=== PATIENT | female | born 2005 | race Caucasian/White ===

== ENCOUNTER 2023-08-19 17:58 | Outpatient (OUT) | payer OTHER, SELFPAY ==
--- NOTE | 2023-08-19 | US_ITS ---
[address] [address] Patient Name: BERENICE LOPEZ MRN: [id number] date: 2005 Sex: F Assigned Patient Location: Current Patient Location: Accession/Order Number: [id number] Exam Date: 08/19/2023 00:00 Report Date: 08/20/2023 07:31 At the request of: HUE JANSEN Procedure: US pelvis w/ transvaginal EXAMINATION: US pelvis w/ transvaginal HISTORY: z87.42 hx ovarian cyst, pain ; left pelvic pain for 5 days COMPARISON: No relevant comparison available. TECHNIQUE: Transabdominal and/or transvaginal sonographic examination was performed as indicated by examination type. FINDINGS: UTERUS: Normal size and appearance. Uterus size: 7.4 x 3.1 x 4.8 cm ENDOMETRIUM: Normal homogeneous appearance. Endometrial thickness: 3.5 mm RIGHT OVARY: Normal size and appearance. Duplex Doppler demonstrates normal waveform and flow; resistive index 0.6. Ovary size: 5.4 x 1.7 x 3.1 cm LEFT OVARY: Contains a 5.9 cm hypoechoic structure with uniform internal echogenicity and no internal blood flow. Also contains a 3.6 cm benign-appearing cyst. Cm benign-appearing cyst Duplex Doppler demonstrates normal waveform and flow; resistive index 0.5. Ovary size: 6.3 x 6.6 x 6.1 cm CUL-DE-SAC: Small amount of free fluid, likely physiologic. BLADDER: Unremarkable. OTHER: None. US/US pelvis w/ transvaginal IMPRESSION: 1. Left ovary contains a large 5.9 cm complex/hemorrhagic cyst versus a vascular mass/dermoid. Follow-up ultrasound evaluation in 6 weeks to document regression is recommended. 2. Additionally seen within the left ovary is an anechoic benign-appearing 3.6 cm cyst. This could also be reevaluated on follow-up. 3. Unremarkable uterus and right ovary. Electronically authenticated by: JOY CARDOZA Date: 08/20/2023 07:31
== END 2023-08-19 17:59 | disposition home or self-care (01) ==
LOC: US 17:58
PROVIDERS: PCP Family Medicine; Visit Provider Obstetrics & Gynecology
DX: R10.2 Pelvic and perineal pain (principal); Z87.42 Personal history of other diseases of the female genital tract; N83.292 Other ovarian cyst, left side
CPT/HCPCS: 76830; 76856

== ENCOUNTER 2023-10-25 09:06 | Outpatient (OUT) | payer OTHER, SELFPAY ==
--- OUTSIDE RECORDS SUMMARY | 2023-10-25 09:11 | XMS_ITS | CCD ---
Author Name Unknown Address [address] [place] [address] Organization [facility] Care Team Providers Care Distributor Sales Manager Name Role Phone MD Joe Rosneberg Primary Care Provider [phone] MD Donta Stewart Attending Provider MD Severo Lea Emergency Provider INDERJIT ., DR SWANN Admitting Unavailable INDERJIT ., DR SWANN Attending Unavailable HOY ., DR DIAZ Primary Care Unavailable INDERJIT ., DR SWANN Admitting Unavailable INDERJIT ., DR SWANN Attending Unavailable HOY ., DR DIAZ Primary Care Unavailable INDERJIT ., DR SWANN Consulting Unavailable ANEL SILVERIO Consulting Unavailable MARKIE ARGUELLES Consulting Unavailable LISA GRANT Consulting Unavailable KARASIK ., DR FERNANDEZ Admitting Unavailabl e KARASIK ., DR FERNANDEZ Attending Unavailabl e HOY ., DR DIAZ Primary Care Unavailable KARASIK ., DR FERNANDEZ Consulting Unavailabl e INDERJIT ., DR SWANN Admitting Unavailable INDERJIT ., DR SWANN Attending Unavailable HOY ., DR DIAZ Primary Care Unavailable INDERJIT ., DR SWANN Consulting Unavailable INDERJIT ., DR SWANN Admitting Unavailable INDERJIT ., DR SWANN Attending Unavailable REQUEST, DR ZIMMERMAN LISTED Primary Care Unavaila ble INDERJIT ., DR SWANN Consulting Unavailable ZIEBER, DR JOY Coronel Consulting Unavailable INDERJIT ., DR SWANN Admitting Unavailable INDERJIT ., DR SWANN Attending Unavailable HOY ., DR DIAZ Primary Care Unavailable INDERJIT ., DR SWANN Consulting Unavailable HOY ., DR DIAZ Admitting Unavailable HOY ., DR DIAZ Attending Unavailable HOY ., DR JOE Primary Care Unavailable DR JOE WILSON Consulting Unavailable DR JOY CARDOZA Consulting Unavailable HUE FLORES Attending Unavailable HUE FLORES Attending Unavailable Medications Current Medications Medication Drug Class(es) Dates Sig (Normalized) Sig (Original) pantoprazole 20 mg delayed release oral tablet (1 source) Proton Pump Inhibitor Start: 02-07-2022 take 1 tablet by mouth once daily Pantoprazole (Protonix) 20 mg Tablet,Delayed Release (Dr/Ec) Active 20 MG PO Daily February 07, 2022 10:09pm promethazine hydrochloride 25 mg oral tablet (1 source) Phenothiazine Start: 02-07-2022 take 25 mg by mouth every six hours Promethazine Active 25 MG PO Q6H February 07, 2022 10:09pm Problems Active Problems Problem Classification Problem Date Documented Date Episodic/Chronic Abdominal pain (5 sources) Abdominal pain; Translations: [Unspecified abdominal pain] Onset: 11-12-2022 02-07-2022 Episodic Endometriosis (1 source) Endometriosis; Translations: [ENDOMETRIOSIS BILAT OVARY UNS DEPTH] Onset: 11-24-2022 Gastritis and duodenitis (1 source) Gastritis; Translations: [Gastritis, unspecified, without bleeding] 02-07-2022 Episodic Menstrual disorders (1 source) Irregular menstruation, unspecified; Translations: [IRREGULAR MENSTRUATION UNSPECIFIED] Onset: 11-05-2022 Chronic Other and unspecified benign neoplasm (4 sources) Benign neoplasm of left ovary; Translations: [BENIGN NEOPLASM OF LEFT OVARY] Onset: 10-19-2022 Episodic Other endocrine disorders (5 sources) Polycystic ovarian syndrome; Translations: [POLYCYSTIC OVARIAN SYNDROME] Onset: 10-15-2022 Chronic Other female genital disorders (1 source) Noninflammatory disorder of ovary, fallopian tube and broad ligament, unspecified; Translations: [OTH NONINFL D/O OVARY TUBE AND BRD LIG] Onset: 10-19-2022 Episodic Past or Other Problems Problem Classification Problem Date Documented Da te Episodic/Chronic Other screening for suspected conditions (not mental disorders or infectious disease) (4 sources) Encounter for screening for malignant neoplasm of cervix; Translations: [ENC SCREENING MALIG NEOPLASM CERV] Onset: 05-04-2022 Episodic Results Test Name Value Interpretation Reference Range Facility XR LSPINE MIN 4 VIEWSon 12-19 XR LSPINE MIN 4 VIEWS EXAMINATION: XR LS PINE MIN 4 VIEWS HISTORY: Pain in thoracic spine ; chronic low back pain COMPARISON: No relevant comparison available. FINDINGS: BONES: Mild left convex curvature of the lumbar spine. No fracture, spondylolisthesis, or significant facet arthropathy. DISC SPACES: Slight narrowing L5-S1. PARASPINOUS: Negative. No paraspinous abnormality is seen. OTHER: Negative. IMPRESSION: 1. L5-S1 mild disc space narrowing; possible early degenerative changes. 2. Mild levocurvature lumbar spine; positioning versus muscle spasm. Electronically authenticated by: JOY CARDOZA Date: 2023-01-10 11:59 Normal [facility] CBC AUTO DIFFon 11-12-2022 BASO # 0.0 103/ul Normal 0.0-0.1 [facility] Comment on above: Performed By: #### C BC #### [facility] [address] [address] [address] Hilda Harden Basophils/100 WBC (Bld) 0.3 % Normal 0.2-2.0 [facility] Comment on above: Performed By: #### C BC #### [facility] [address] [address] [address] Hilda Harden EO # 0.1 103/ul Normal 0.0-0.7 [facility] Comment on above: Performed By: #### C BC #### [facility] [address] [address] [address] Hilda Harden Eosinophils/100 WBC (Bld) 1.3 % Normal 0.9-7.0 [facility] Comment on above: Performed By: #### C BC #### [facility] [address] [address] [address] Hilda Harden Erythrocyte distribution width (RBC) [Ratio] 13.3 % Normal 11.0-15.0 [facility] Comment on above: Performed By: #### C BC #### [facility] [address] [place] [address] Dr. Hilda Harden Hematocrit (Bld) [Volume fraction] 40.9 % Normal 36.0-48.0 [facility] Comment on above: Performed By: #### C BC #### [facility] [address] [place] [address] Dr. Hilda Harden Hemoglobin (Bld) [Mass/Vol] 13.9 g/dL Normal 12.0-16.0 [facility] Comment on above: Performed By: #### C BC #### [facility] [address] [place] [address] Dr. Hilda Harden IG # 0.02 10e3/ul Normal 0.00-0.03 [facility] Comment on above: Performed By: #### C BC #### [facility] [address] [place] [address] Dr. Hilda Harden IG % 0.3 % Normal 0.0-0.5 [facility] Comment on above: Performed By: #### C BC #### [facility] [address] [place] [address] Dr. Hilda Harden LYMPH # 2.5 103/ul Normal 1.2-3.8 [facility] Comment on above: Performed By: #### C BC #### [facility] [address] [place] [address] Dr. Hilda Harden Lymphocytes/100 WBC (Bld) 41.4 % Normal 20.5-60.0 [facility] Comment on above: Performed By: #### C BC #### [facility] [address] [place] [address] Dr. Hilda Harden MANUAL DIFF REQ NO Normal [facility] Comment on above: Performed By: #### C BC #### [facility] [address] [place] [address] Dr. Hilda Harden MCH (RBC) [Entitic mass] 28.8 pg Normal 26.7-34.0 [facility] Comment on above: Performed By: #### C BC #### [facility] [address] [place] [address] Dr. Hilda Harden MCHC (RBC) [Mass/Vol] 34.0 g/dL Normal 29.9-35.2 [facility] Comment on above: Performed By: #### C BC #### [facility] [address] [address] [address] Hilda Harden MCV (RBC) [Entitic vol] 84.9 fL Normal 81.0-99.0 [facility] Comment on above: Performed By: #### C BC #### [facility] [address] [place] [address] Dr. Hilda Harden MONO # 0.4 103/ul Normal 0.3-0.8 [facility] Comment on above: Performed By: #### C BC #### [facility] [address] [place] [address] Dr. Hilda Harden Monocytes/100 WBC (Bld) 6.9 % Normal 1.7-12.0 [facility] Comment on above: Performed By: #### C BC #### [facility] [address] [place] [address] Dr. Hilda Harden NEUT # 3.0 103/ul Normal 1.4-6.5 [facility] Comment on above: Performed By: #### C BC #### [facility] [address] [place] [address] Dr. Hilda Harden Neutrophils/100 WBC (Bld) 49.8 % Normal 43.0-75.0 [facility] Comment on above: Performed By: #### C BC #### [facility] [address] [place] [address] Dr. Hilda Harden Platelet mean volume (Bld) [Entitic vol] 9.6 fL Normal 9.5-13.5 [facility] Comment on above: Performed By: #### C BC #### [facility] [address] [place] [address] Dr. Hilda Harden PLT 279 103/ul Normal 150-450 [facility] Comment on above: Performed By: #### C BC #### [facility] [address] [place] [address] Dr. Hilda Harden RBC 4.82 106/ul Normal 4.20-5.40 [facility] Comment on above: Performed By: #### C BC #### [facility] [address] [place] [address] Dr. Hilda Harden WBC 6.1 103/ul Normal 4.0-11.0 [facility] Comment on above: Performed By: #### C BC #### [facility] [address] [place] [address] Dr. Hilda Harden PREG QUANT HCGon 11-12-2022 HCG QUANT <1 Normal [facility] Comment on above: Performed By: #### C T/NGNA #### [facility] [address] [place] [address] Dr. Hilda Harden HCG RANGE SEE BELOW Normal [facility] Comment on above: Result Comment: 5-50 0.2-1 WEEK 50-500 1-2 WEEKS 100-5,000 2-3 WEEKS 500-10,000 3-4 WEEKS 1,000-50,000 4-5 WEEKS 10,000-100,000 5-6 WEEKS 15,000-200,000 6-8 WEEKS 10,000-100,000 2-3 MONTHS Performed By: #### C T/NGNA #### [facility] [address] [place] [address] Dr. Hilda Harden AFP (TUMOR MARKER)on 023 AFP, Serum, Tumor Marker 4.9 ng/mL Critically high 0.0-4. 7 [facility] Comment on above: Result Comment: [email or web address] Electrochemiluminescence Immunoassay (ECLIA) . Values obtained with different assay methods or kits cannot be used interchangeably. Results cannot be interpreted as absolute evidence of the presence or absence of malignant disease. . This test is not interpretable in females. Performed By: #### A FP. #### [facility] [address] [place] [address] Dr. Hilda Harden CA 125on 10-20-2022 Cancer Antigen (CA) 125 34.1 U/mL Normal 0.0-38.1 [facility] Comment on above: Result Comment: [email or web address] Electrochemiluminescence Immunoassay (ECLIA) . Values obtained with different assay methods or kits cannot be used interchangeably. Results cannot be interpreted as absolute evidence of the presence or absence of malignant disease. Performed By: #### C A 125 #### [facility] [address] [place] [address] Dr. Hilda Harden CEAon 10-20-2022 CEA 1.3 ng/mL Normal 0.0-4.7 [facility] Comment on above: Result Comment: Nons mokers <3.9 Smokers <5.6 . [employer] Electrochemiluminescence Immunoassay (ECLIA) . Values obtained with different assay methods or kits cannot be used interchangeably. Results cannot be interpreted as absolute evidence of the presence or absence of malignant disease. Performed By: #### C T/NGNA #### [facility] [address] [place] [address] Dr. Hilda Harden HCG QUANT TUMOR MARKERon HCG QNT TUMOR MARKER <1 Normal [facility] Comment on above: Result Comment: Fema le (Non-) 0 - 5 (Postmenopausal) 0 - 8 . [employer] Electrochemiluminescence Immunoassay (ECLIA) . The [employer] HCG + beta assay recognizes the holo-hormone, human chorionic gonadotropin (hCG), nicked forms of hCG, the beta-core fragment and the free beta-subunit in human serum and plasma. . Results obtained with different test methods or kits cannot used interchangeably. This assay is intended for the early detection of . The result should not be used for treatment or for diagnostic purposes without confirmation of the diagnosis by another medically established diagnostic product or procedure. . This test was developed and its performance characteristics determined by [employer] It has not been cleared or approved by the Food and Drug Administration for use as a tumor marker. . This test is not interpretable as a tumor marker in females. Performed By: #### H CGTMOR #### [facility] [address] [place] [address] Dr. Hilda Harden LDHon 10-19-2022 LDH 140 U/L Normal 81-234 [facility] Comment on above: Performed By: #### L DH #### [facility] [address] [place] [address] Dr. Hilda Harden US PELVIS AND TRANSVAGon US PELVIS AND TRANSVAG EXAMINATION: US P MERCY AND TRANSVAG HISTORY: Polycystic ovary syndrome , infertility COMPARISON: No relevant comparison available. TECHNIQUE: Transabdominal and transvaginal sonographic examination. FINDINGS: UTERUS: Normal size and appearance. Uterus size: 8.5 x 4.9 x 3.5 cm ENDOMETRIUM: Normal homogeneous appearance. Endometrial thickness: 7 mm RIGHT OVARY: Normal size and appearance. Duplex Doppler demonstrates normal waveform and flow; resistive index 0.5. Ovary size: 4.9 x 3.7 x 2.0 cm LEFT OVARY: Contains a 6.1 x 5.9 x 5.1 cm homogeneous mass with a coarse prominent calcification; likely dermoid. Left ovary also contains a 3.9 cm benign-appearing cyst. Duplex Doppler demonstrates normal waveform and flow; resistive index 0.6. Ovary size: 4.8 x 4.8 x 3.9 cm CUL-DE-SAC: Unremarkable. No significant free fluid. BLADDER: Unremarkable. OTHER: None. IMPRESSION: 1. Nonspecific mass/lesion within left ovary with what appears to be a dense calcification; suspicious for dermoid. Follow-up in 6 weeks is recommended to evaluate for stability versus regression as this could represent a very complex hemorrhagic cyst. 2. Large benign-appearing cyst within left ovary. 3. Typical appearance of polycystic ovarian syndrome it is not present. Electronically authenticated by: JOY CARDOZA Date: 2022-10-15 13:53 Normal [facility] DHEA SERUMon 10-10-2022 Dehydroepiandrosterone (DHEA) 640 ng/dL Critically high 40-491 [facility] Comment on above: Result Comment: Age 1 - 5 years 0 - 67 6 - 7 years 0 - 110 8 - 10 years 0 - 185 11 - 12 years 0 - 201 13 - 14 years 0 - 318 15 - 16 years 39 - 481 17 - 19 years 40 - 491 >19 years 31 - 701 Performed By: #### D HEA. #### [facility] [address] [place], [place] [address] Dr. Hilda Harden DHEA-SULFATEon 10-07-2022 DHEA-Sulfate 201.0 ug/dL Normal 110.0-433. 2 [facility] Comment on above: Performed By: #### C T/NGNA #### [facility] [address] [place], [place] [address] Dr. Hilda Harden FSHon 10-07-2022 FSH 4.1 mIU/mL Normal [facility] Comment on above: Result Comment: Adul t Female: Follicular phase 3.5 - 12.5 Ovulation phase 4.7 - 21.5 Luteal phase 1.7 - 7.7 Postmenopausal 25.8 - 134.8 Performed By: #### C T/NGNA #### [facility] [address] [place] [address] Dr. Hilda Harden LUTEINIZING HORMONE (LH)on 0 10-07-2022 LH 7.9 mIU/mL Normal [facility] Comment on above: Result Comment: Adul t Female: Follicular phase 2.4 - 12.6 Ovulation phase 14.0 - 95.6 Luteal phase 1.0 - 11.4 Postmenopausal 7.7 - 58.5 Performed By: #### C BC #### [facility] [address] [place] [address] Dr. Hilda Harden CBC AUTO DIFFon 10-06-2022 BASO # 0.0 103/ul Normal 0.0-0.1 [facility] Comment on above: Performed By: #### C BC #### [facility] [address] [place] [address] Dr. Hilda Harden Basophils/100 WBC (Bld) 0.3 % Normal 0.2-2.0 [facility] Comment on above: Performed By: #### C BC #### [facility] [address] [place] [address] Dr. Hilda Harden EO # 0.1 103/ul Normal 0.0-0.7 [facility] Comment on above: Performed By: #### C BC #### [facility] [address] [place] [address] Dr. Hilda Harden Eosinophils/100 WBC (Bld) 1.8 % Normal 0.9-7.0 [facility] Comment on above: Performed By: #### C BC #### [facility] [address] [place] [address] Dr. Hilda Harden Erythrocyte distribution width (RBC) [Ratio] 13.3 % Normal 11.0-15.0 [facility] Comment on above: Performed By: #### C BC #### [facility] [address] [place] [address] Dr. Hilda Harden Hematocrit (Bld) [Volume fraction] 39.9 % Normal 36.0-48.0 [facility] Comment on above: Performed By: #### C BC #### [facility] [address] [place] [address] Dr. Hilda Harden Hemoglobin (Bld) [Mass/Vol] 13.1 g/dL Normal 12.0-16.0 [facility] Comment on above: Performed By: #### C BC #### [facility] [address] [place] [address] Dr. Hilda Harden IG # 0.02 10e3/ul Normal 0.00-0.03 [facility] Comment on above: Performed By: #### C BC #### [facility] [address] [place] [address] Dr. Hilda Harden IG % 0.3 % Normal 0.0-0.5 [facility] Comment on above: Performed By: #### C BC #### [facility] [address] [place] [address] Dr. Hilda Harden LYMPH # 2.1 103/ul Normal 1.2-3.8 [facility] Comment on above: Performed By: #### C BC #### [facility] [address] [place] [address] Dr. Hilda Harden Lymphocytes/100 WBC (Bld) 31.8 % Normal 20.5-60.0 [facility] Comment on above: Performed By: #### C BC #### [facility] [address] [place] [address] Dr. Hilda Harden MANUAL DIFF REQ NO Normal [facility] Comment on above: Performed By: #### C BC #### [facility] [address] [place] [address] Dr. Hilda Harden MCH (RBC) [Entitic mass] 27.8 pg Normal 26.7-34.0 [facility] Comment on above: Performed By: #### C BC #### [facility] [address] [place] [address] Dr. Hilda Harden MCHC (RBC) [Mass/Vol] 32.8 g/dL Normal 29.9-35.2 [facility] Comment on above: Performed By: #### C BC #### [facility] [address] [place] [address] Dr. Hilda Harden MCV (RBC) [Entitic vol] 84.5 fL Normal 81.0-99.0 [facility] Comment on above: Performed By: #### C BC #### [facility] [address] [place] [address] Dr. Hilda Harden MONO # 0.5 103/ul Normal 0.3-0.8 [facility] Comment on above: Performed By: #### C BC #### [facility] [address] [place] [address] Dr. Hilda Harden Monocytes/100 WBC (Bld) 7.8 % Normal 1.7-12.0 [facility] Comment on above: Performed By: #### C BC #### [facility] [address] [place] [address] Dr. Hilda Harden NEUT # 3.8 103/ul Normal 1.4-6.5 [facility] Comment on above: Performed By: #### C BC #### [facility] [address] [place] [address] Dr. Hilda Harden Neutrophils/100 WBC (Bld) 58.0 % Normal 43.0-75.0 [facility] Comment on above: Performed By: #### C BC #### [facility] [address] [place] [address] Dr. Hilda Harden Platelet mean volume (Bld) [Entitic vol] 9.7 fL Normal 9.5-13.5 [facility] Comment on above: Performed By: #### C BC #### [facility] [address] [place] [address] Dr. Hilda Harden PLT 266 103/ul Normal 150-450 [facility] Comment on above: Performed By: #### C BC #### [facility] [address] [place] [address] Dr. Hilda Harden RBC 4.72 106/ul Normal 4.20-5.40 [facility] Comment on above: Performed By: #### C BC #### [facility] [address] [place] [address] Dr. Hilda Harden WBC 6.6 103/ul Normal 4.0-11.0 [facility] Comment on above: Performed By: #### C BC #### [facility] [address] [place] [address] Dr. Hilda Harden FREE T4on 10-06-2022 Free T4 [Mass/Vol] 1.09 ng/dL Normal 0.78-1.34 [facility] Comment on above: Performed By: #### C T/NGNA #### [facility] [address] [place] [address] Dr. Hilda Harden GLYCOHEMOGLOBIN A1Con 2022 ADA RECOMMENDATION SEE BELOW Normal [facility] Comment on above: Result Comment: ADA RECOMMENDED LIMIT 4.0 - 6.0 ADA THERAPEUTIC TARGET < 7.0 ACTION SUGGESTED > 7.0 Performed By: #### A 1C #### [facility] [address] [place] [address] Dr. Hilda Harden Glucose [Mass/Vol] 100 mg/dL Normal [facility] Comment on above: Performed By: #### A 1C #### [facility] [address] [place] [address] Dr. Hilda Harden HbA1c (Bld) [Mass fraction] 5.1 % Normal 4.5-6.2 [facility] Comment on above: Performed By: #### A 1C #### [facility] [address] [place] [address] Dr. Hilda Harden TSHon 10-06-2022 TSH 1.199 uIU/mL Normal 0.516-4.13 0 [facility] Comment on above: Performed By: #### T SH #### [facility] [address] [place] [address] Dr. Hilda Harden CHLAMYDIA/GONOCOCCUS RON (SW AB/URINE/PAPon 05-07-2022 Chlamydia trachomatis, RON Negative Normal Negative [facility] Comment on above: Performed By: #### C T/NGNA #### [facility] [address] [address] [address] Hilda Harden Neisseria gonorrhoeae, RON Negative Normal Negative [facility] Comment on above: Performed By: #### C T/NGNA #### [facility] [address] [address] [address] Hilda Harden VAGINITIS/VAGINOSIS DNA PROB Harinder 05-06-2022 Shannen species Negative Normal Negative [facility] Comment on above: Performed By: #### C BC #### [facility] [address] [address] [address] Hilda Harden Gardnerella vaginalis Positive Abnormal Negative [facility] Comment on above: Performed By: #### C BC #### [facility] [address] [address] [address] Hilda Harden Trichomonas vaginalis Negative Normal Negative [facility] Comment on above: Performed By: #### C BC #### [facility] [address] [address] [address] Hilda Harden Amylaseon 02-07-2022 Amylase [Catalytic activity/Vol] 70 U/L Normal 28-100 [facility] Comment on above: Performed By: #### A MY, CBC, LIPASE, CMP #### [address] Basophils Auto (Bld) [#/Vol] Ordered By: Severo Lea on 02-07-2022 Basophils (Bld) [#/Vol] 0.0 10*3/uL 0.0-0.1 [facility] Basophils/100 WBC Auto (Bld) Ordered By: Severo Lea on 02-07-2022 Basophils/100 WBC (Bld) 0.6 % F [facility] Bilirubin Test strip Ql (U)O rdered By: Severo Lea on 02-07-2022 Bilirubin Ql (U) Negative Negative [facility] Blood hemoglobin measurement (mass/volume)Ordered By: Severo Lea on 02-07-2022 Hemoglobin (Bld) [Mass/Vol] 13.8 g/dL 12.0-16.0 [facility] Blood leukocytes automated c ount (number/volume)Ordered By: Severo Lea on 02-07-2022 WBC (Bld) [#/Vol] 8.5 10*3/uL 4.5-13.5 [facility] Body fluid albumin measureme nt (mass/volume)Ordered By: Severo Lea on 02-07-2022 Albumin (Body fld) [Mass/Vol] 4.2 g/dL 3.2-5.5 [facility] Color Auto (U)Ordered By: Maren Lea on 02-07-2022 Color (U) Yellow Yellow [facility] Complete Blood Count Auto Di ffon 02-07-2022 Basophils (Bld) [#/Vol] 0.0 10*3/uL Normal 0.0-0.1 [facility] Comment on above: Result Comment: PERF ORMED BY: [place] [address] PATHOLOGIST SET UP [employer] BORIS ELIZABETH M.D. Performed By: #### A MY, CBC, LIPASE, CMP #### [address] Basophils/100 WBC (Bld) 0.6 % Normal . F [facility] Comment on above: Performed By: #### A MY, CBC, LIPASE, CMP #### [address] Eosinophils (Bld) [#/Vol] 0.1 10*3/uL Normal 0.0-0.7 [facility] Comment on above: Performed By: #### A MY, CBC, LIPASE, CMP #### [place] [address] [place] Eosinophils/100 WBC (Bld) 0.7 % Normal . [facility] Comment on above: Performed By: #### A MY, CBC, LIPASE, CMP #### [address] Erythrocyte distribution width (RBC) [Ratio] 14.2 % Normal 11.9-15.3 [facility] Comment on above: Performed By: #### A MY, CBC, LIPASE, CMP #### [address] Hematocrit (Bld) [Volume fraction] 41.5 % Normal 36.0-46.0 [facility] Comment on above: Performed By: #### A MY, CBC, LIPASE, CMP #### [address] Hemoglobin (Bld) [Mass/Vol] 13.8 g/dL Normal 12.0-16.0 [facility] Comment on above: Performed By: #### A MY, CBC, LIPASE, CMP #### [address] Lymphocytes (Bld) [#/Vol] 2.0 10*3/uL Normal 1.20-4.8 [facility] Comment on above: Performed By: #### A MY, CBC, LIPASE, CMP #### [address] Lymphocytes/100 WBC (Bld) 23.8 % Normal . [facility] Comment on above: Performed By: #### A MY, CBC, LIPASE, CMP #### [address] MCH (RBC) [Entitic mass] 28.6 pg Normal 25.0-35.0 [facility] Comment on above: Performed By: #### A MY, CBC, LIPASE, CMP #### [address] MCV (RBC) [Entitic vol] 85.8 fL Normal 78-102 [facility] Comment on above: Performed By: #### A MY, CBC, LIPASE, CMP #### [address] Mean Corpuscular HGB Conc 33.3 g/dL Normal 31.0-37.0 [facility] Comment on above: Performed By: #### A MY, CBC, LIPASE, CMP #### [address] Monocytes (Bld) [#/Vol] 0.6 10*3/uL Normal 0.1-1.00 [facility] Comment on above: Performed By: #### A MY, CBC, LIPASE, CMP #### [address] Monocytes/100 WBC (Bld) 7.6 % Normal . [facility] Comment on above: Performed By: #### A MY, CBC, LIPASE, CMP #### [address] Neutrophils (Bld) [#/Vol] 5.7 10*3/uL Normal 1.2-7.7 [facility] Comment on above: Performed By: #### A MY, CBC, LIPASE, CMP #### [address] Neutrophils/100 WBC (Bld) 67.3 % Normal . [facility] Comment on above: Performed By: #### A MY, CBC, LIPASE, CMP #### [address] Nucleated RBC/100 WBC (Bld) [Ratio] 0.0 % Normal 0-0.5 [facility] Comment on above: Performed By: #### A MY, CBC, LIPASE, CMP #### [address] Platelet mean volume (Bld) [Entitic vol] 8.6 fL Normal 6.3-10.7 [facility] Comment on above: Performed By: #### A MY, CBC, LIPASE, CMP #### [place] [address] [place] Platelets (Bld) [#/Vol] 304 10*3/uL Normal 150-450 [facility] Comment on above: Performed By: #### A MY, CBC, LIPASE, CMP #### [place] [address] [place] RBC (Bld) [#/Vol] 4.84 10*6/uL Normal 4.10-5.10 [facility] Comment on above: Performed By: #### A MY, CBC, LIPASE, CMP #### [address] [address] [place] WBC (Bld) [#/Vol] 8.5 10*3/uL Normal 4.5-13.5 [facility] Comment on above: Performed By: #### A MY, CBC, LIPASE, CMP #### [facility] [address] [place] [address] Comprehensive Metabolic Pane emigdio 02-07-2022 Albumin [Mass/Vol] 4.2 g/dL Normal 3.2-5.5 [facility] Comment on above: Performed By: #### A MY, CBC, LIPASE, CMP #### [address] Albumin/Globulin [Mass ratio] 1.8 {ratio} Normal [facility] Comment on above: Performed By: #### A MY, CBC, LIPASE, CMP #### [address] ALP [Catalytic activity/Vol] 46 U/L Normal 32-92 [facility] Comment on above: Performed By: #### A MY, CBC, LIPASE, CMP #### [address] ALT [Catalytic activity/Vol] 14 U/L Normal 10-60 [facility] Comment on above: Performed By: #### A MY, CBC, LIPASE, CMP #### [address] AST [Catalytic activity/Vol] 15 U/L Normal 10-42 [facility] Comment on above: Performed By: #### A MY, CBC, LIPASE, CMP #### [address] Bilirubin [Mass/Vol] 0.5 mg/dL Normal 0.3-1.2 [facility] Comment on above: Performed By: #### A MY, CBC, LIPASE, CMP #### [facility] [address] [place] [address] Calcium [Mass/Vol] 9.3 mg/dL Normal 8.2-10.2 [facility] Comment on above: Performed By: #### A MY, CBC, LIPASE, CMP #### [facility] [address] Chloride [Moles/Vol] 107 mmol/L Normal 95-114 [facility] Comment on above: Performed By: #### A MY, CBC, LIPASE, CMP #### [facility] [address] CO2 [Moles/Vol] 25.1 mmol/L Normal 22.0-30.0 [facility] Comment on above: Performed By: #### A MY, CBC, LIPASE, CMP #### [facility] [address] Creatinine [Mass/Vol] 0.82 mg/dL Normal 0.44-1.03 [facility] Comment on above: Performed By: #### A MY, CBC, LIPASE, CMP #### [facility] [address] Creatinine Clr Calc Pharmacy 100.48 [facility] Comment on above: Performed By: #### A MY, CBC, LIPASE, CMP #### [address] Estimated GFR ( Mari > 60 [facility] Comment on above: Result Comment: GFR estimated reference range: According to KDOQI guidelines, <60 ml/min/1.73m2 is sufficient to diagnose a patient with chronic kidney disease. Performed By: #### A MY, CBC, LIPASE, CMP #### [facility] [address] Estimated GFR (Non- Am > 60 [facility] Comment on above: Performed By: #### A MY, CBC, LIPASE, CMP #### [facility] [address] Globulin (S) [Mass/Vol] 2.4 g/dL Normal [facility] Comment on above: Performed By: #### A MY, CBC, LIPASE, CMP #### [facility] [address] Glucose [Mass/Vol] 94 mg/dL Normal 70-100 [facility] Comment on above: Result Comment: [place] Glucose Reference Range is dependent on time and content of last meal. Glucose of more than 200 mg/dL in a nonstressed, ambulatory subject supports the diagnosis of Diabetes Mellitus. ADA recommended reference range Performed By: #### A MY, CBC, LIPASE, CMP #### [facility] [address] Potassium [Moles/Vol] 4.2 mmol/L Normal 3.5-5.1 [facility] Comment on above: Performed By: #### A MY, CBC, LIPASE, CMP #### [facility] [address] Protein [Mass/Vol] 6.6 g/dL Normal 6.1-7.9 [facility] Comment on above: Performed By: #### A MY, CBC, LIPASE, CMP #### [facility] [address] [place] [address] [place] Sodium [Moles/Vol] 140 mmol/L Normal 136-146 [facility] Comment on above: Performed By: #### A MY, CBC, LIPASE, CMP #### [facility] [address] [place] [address] [place] Urea nitrogen [Mass/Vol] 11 mg/dL Normal 9-23 [facility] Comment on above: Performed By: #### A MY, CBC, LIPASE, CMP #### [facility] [address] [place] [address] [place] Creatinine and Glomerular fi ltration rate.predicted panel (S/P/Bld)Ordered By: Severo Lea on 02-07-2022 Creatinine [Mass/Vol] 0.82 mg/dL 0.44-1.03 [facility] Eosinophils Auto (Bld) [#/Vo l]Ordered By: Severo Lea on 02-07-2022 Eosinophils (Bld) [#/Vol] 0.1 10*3/uL 0.0-0.7 [facility] Eosinophils/100 WBC Auto (Bl d)Ordered By: Severo Lea on 02-07-2022 Eosinophils/100 WBC (Bld) 0.7 % [facility] Erythrocyte distribution wid th Auto (RBC) [Ratio]Ordered By: Severo Lea on 02-07-2022 Erythrocyte distribution width (RBC) [Ratio] 14.2 % 11.9-15.3 [facility] Estimated glomerular filtrat ion rate (GFR) non- AmericanOrdered By: Severo Lea on 02-07-2022 GFR/1.73 sq M.predicted among non-blacks MDRD (S/P/Bld) [Vol rate/Area] > 60 mL/Min [facility] Globulin Calc (S) [Mass/Vol] Ordered By: Severo Lea on 02-07-2022 Globulin (S) [Mass/Vol] 2.4 g/dL F [facility] HCG ( test) IA.rapi d Ql (U)Ordered By: Severo Lea on 02-07-2022 HCG ( test) Ql (U) Negative [facility] HCG,Urineon 02-07-2022 Beta HCG ( test) Ql (U) Negative Normal [facility] Comment on above: Order Comment: Name Collection Type:: Clean-Voided Midstream Result Comment: PERF ORMED BY: [place] [address] PATHOLOGIST SET UP [employer] BORIS ELIZABETH M.D. Performed By: #### [facility], [facility] #### [address] Hematocrit Auto (Bld) [Volum e fraction]Ordered By: Severo Lea on 02-07-2022 Hematocrit (Bld) [Volume fraction] 41.5 % 36.0-46.0 [facility] Ketones Auto test strip (U) [Mass/Vol]Ordered By: Severo Lea on 02-07-2022 Ketones (U) [Mass/Vol] Trace Negative Fi [facility] - Chemistry and C hemistry - challengeOrdered By: Severo Lea on 02-07-2022 Lipase [Catalytic activity/Vol] 53.0 U/L [facility] - Hematology and Cell countsOrdered By: Severo Lea on 02-07-2022 Nucleated RBC/100 WBC (Bld) [Ratio] 0.0 % 0-0.5 [facility] Lipaseon 02-07-2022 Lipase [Catalytic activity/Vol] 53.0 U/L High 22-51 [facility] Comment on above: Result Comment: PERF ORMED BY: [facility] [address] [place] [address] PATHOLOGIST SET UP [employer] BORIS ELIZABETH M.D. Performed By: #### A MY, CBC, LIPASE, CMP #### [facility] [address] Lymphocytes Auto (Bld) [#/Vo l]Ordered By: Severo Lea on 02-07-2022 Lymphocytes (Bld) [#/Vol] 2.0 10*3/uL 1.20-4.8 [facility] Lymphocytes/100 WBC Auto (Bl d)Ordered By: Severo Lea on 02-07-2022 Lymphocytes/100 WBC (Bld) 23.8 % [facility] MCH Auto (RBC) [Entitic mass ]Ordered By: Severo Lea on 02-07-2022 MCH (RBC) [Entitic mass] 28.6 pg 25.0-35.0 [facility] MCHC Auto (RBC) [Mass/Vol]Or dered By: Severo Lea on 02-07-2022 MCHC (RBC) [Mass/Vol] 33.3 g/dL 31.0-37.0 [facility] MCV Auto (RBC) [Entitic vol] Ordered By: Severo Lea on 02-07-2022 MCV (RBC) [Entitic vol] 85.8 fL 78-102 [facility] Monocytes Auto (Bld) [#/Vol] Ordered By: Severo Lea on 02-07-2022 Monocytes (Bld) [#/Vol] 0.6 10*3/uL 0.1-1.00 [facility] Monocytes/100 WBC Auto (Bld) Ordered By: Severo Lea on 02-07-2022 Monocytes/100 WBC (Bld) 7.6 % F [facility] Neutrophils Auto (Bld) [#/Vo l]Ordered By: Severo Lea on 02-07-2022 Neutrophils (Bld) [#/Vol] 5.7 10*3/uL 1.2-7.7 [facility] Neutrophils/100 WBC Auto (Bl d)Ordered By: Severo Lea on 02-07-2022 Neutrophils/100 WBC (Bld) 67.3 % [facility] Nitrite Test strip Ql (U)Ord ered By: Severo Lea on 02-07-2022 Nitrite Ql (U) Negative Negative [facility] No Panel InformationOrdered By: Severo Lea on 02-07-2022 Estimated GFR () > 60 mL/Min [facility] Comment on above: GFR estimated refere nce range: According to KDOQI guidelines, <60 ml/min/1.73m2 is sufficient to diagnose a patient with chronic kidney disease. Pharmacy Creatinine Clearance (Chem 100.48 [facility] Platelet mean volume Auto (B ld) [Entitic vol]Ordered By: Severo Lea on 02-07-2022 Platelet mean volume (Bld) [Entitic vol] 8.6 fL 6.3-10.7 [facility] Platelets Auto (Bld) [#/Vol] Ordered By: Severo Lea on 02-07-2022 Platelets (Bld) [#/Vol] 304 10*3/uL 150-450 [facility] Protein Auto test strip (U) [Mass/Vol]Ordered By: Severo Lea on 02-07-2022 Protein (U) [Mass/Vol] Negative Negative [facility] Protein [Mass/volume] in Ser um or PlasmaOrdered By: Severo Lea on 02-07-2022 Protein [Mass/Vol] 6.6 g/dL 6.1-7.9 [facility] RBC Auto (Bld) [#/Vol]Ordere d By: Severo Lea on 02-07-2022 RBC (Bld) [#/Vol] 4.84 10*6/uL 4.10-5.10 [facility] Serum or plasma alanine guerra otransferase measurement without P-5'-P (enzymatic activiOrdered By: Severo Lea on 02-07-2022 ALT No additional P-5'-P [Catalytic activity/Vol] 14 U/L 10-60 [facility] Serum or plasma albumin/glob ulin mass ratioOrdered By: Severo Lea on 02-07-2022 Albumin/Globulin [Mass ratio] 1.8 {ratio} [facility] Serum or plasma alkaline wil sphatase measurement (enzymatic activity/volume)Ordered By: Severo Lea on 02-07-2022 ALP [Catalytic activity/Vol] 46 U/L 32-92 [facility] Serum or plasma amylase jamar urement (enzymatic activity/volume)Ordered By: Severo Lea on 02-07-2022 Amylase [Catalytic activity/Vol] 70 U/L 28-100 [facility] Serum or plasma aspartate am inotransferase measurement (enzymatic activity/volume)Ordered By: Severo Lea on 02-07-2022 AST [Catalytic activity/Vol] 15 U/L 10-42 [facility] Serum or plasma calcium jamar urement (mass/volume)Ordered By: Severo Lea on 02-07-2022 Calcium [Mass/Vol] 9.3 mg/dL 8.2-10.2 [facility] Serum or plasma chloride payton surement (moles/volume)Ordered By: Severo Lea on 02-07-2022 Chloride [Moles/Vol] 107 mmol/L 95-114 [facility] Serum or plasma glucose jamar urement (mass/volume)Ordered By: Severo Lea on 02-07-2022 Glucose [Mass/Vol] 94 mg/dL 70-100 [facility] Comment on above: ADA recommended refe rence range Random Glucose Reference Range is dependent on time and content of last meal. Glucose of more than 200 mg/dL in a nonstressed, ambulatory subject supports the diagnosis of Diabetes Mellitus. Serum or plasma potassium me asurement (moles/volume)Ordered By: Severo Lea on 02-07-2022 Potassium [Moles/Vol] 4.2 mmol/L 3.5-5.1 [facility] Serum or plasma sodium measu rement (moles/volume)Ordered By: Severo Lea on 02-07-2022 Sodium [Moles/Vol] 140 mmol/L 136-146 [facility] Serum or plasma total biliru bin measurement (mass/volume)Ordered By: Severo Lea on 02-07-2022 Bilirubin [Mass/Vol] 0.5 mg/dL 0.3-1.2 [facility] Serum or plasma total carbon dioxide measurement (moles/volume)Ordered By: Severo Lea on 02-07-2022 CO2 [Moles/Vol] 25.1 mmol/L 22.0-30.0 [facility] Serum or plasma urea nitroge n measurement (mass/volume)Ordered By: Severo Lea on 02-07-2022 Urea nitrogen [Mass/Vol] 11 mg/dL 06-11 [facility] Specific gravity Auto test s trip (U) [Rel density]Ordered By: Severo Lea on 02-07-2022 Specific gravity (U) [Rel density] 1.027 1.001-1.03 0 [facility] Urinalysison 02-07-2022 Appearance (U) Clear Normal Clear [facility] Comment on above: Order Comment: Name Collection Type:: Clean-Voided Midstream Performed By: #### U A, UHCG #### [facility] [address] [place] [address] [place] Bilirubin,Urine Negative Normal Negative [facility] Comment on above: Order Comment: Name Collection Type:: Clean-Voided Midstream Performed By: #### U A, UHCG #### [facility] [address] [place] [address] [place] Color (U) Yellow Normal Yellow [facility] Comment on above: Order Comment: Name Collection Type:: Clean-Voided Midstream Performed By: #### U A, UHCG #### [facility] [address] [place] [address] [place] Glucose Ql (U) Normal Normal Normal [facility] Comment on above: Order Comment: Name Collection Type:: Clean-Voided Midstream Performed By: #### U A, UHCG #### [facility] [address] [place] [address] [place] Ketones Ql (U) Trace High Negative [facility] Comment on above: Order Comment: Name Collection Type:: Clean-Voided Midstream Performed By: #### U A, UHCG #### [facility] [address] [place] [address] [place] Leukocyte esterase Test strip Ql (U) Negative Normal Negative [facility] Comment on above: Order Comment: Name Collection Type:: Clean-Voided Midstream Performed By: #### U A, UHCG #### [facility] [address] [place] [address] [place] Nitrite,Urine Negative Normal Negative [facility] Comment on above: Order Comment: Name Collection Type:: Clean-Voided Midstream Performed By: #### U A, UHCG #### [address] Occult Blood,Urine Negative Normal Negative [facility] Comment on above: Order Comment: Name Collection Type:: Clean-Voided Midstream Performed By: #### U A, UHCG #### [address] pH (U) 6.0 [pH] Normal 5.0-9.0 [facility] Comment on above: Order Comment: Name Collection Type:: Clean-Voided Midstream Performed By: #### U A, UHCG #### [address] Protein,Urine Negative Normal Negative [facility] Comment on above: Order Comment: Name Collection Type:: Clean-Voided Midstream Performed By: #### U A, UHCG #### [address] Specificy [place],Urine 1.027 Normal 1.00 1-1.03 0 [facility] Comment on above: Order Comment: Name Collection Type:: Clean-Voided Midstream Performed By: #### U A, UHCG #### [facility] [address] [place] [address] [place] Urobilinogen,Urine Normal Normal Normal [facility] Comment on above: Order Comment: Name Collection Type:: Clean-Voided Midstream Performed By: #### U A, UHCG #### [facility] [address] [place] [address] [place] Urine clarity by refractomet ry automatedOrdered By: Severo Lea on 02-07-2022 Clarity Refractometry automated (U) Clear Clear [facility] Urine glucose measurement by automated test strip (mass/volume)Ordered By: Severo Lea on 02-07-2022 Glucose Auto test strip (U) [Mass/Vol] Normal mg/dL Normal [facility] Urine hemoglobin detection b y automated test stripOrdered By: Severo Lea on 02-07-2022 Hemoglobin Auto test strip Ql (U) Negative Negative [facility] Urine leukocyte esterase det ection by automated test stripOrdered By: Severo Lea on 02-07-2022 Leukocyte esterase Auto test strip Ql (U) Negative Negative [facility] Urobilinogen Auto test strip (U) [Mass/Vol]Ordered By: Severo Lea on 02-07-2022 Urobilinogen (U) [Mass/Vol] Normal mg/dL Normal [facility] pH Auto test strip (U)Ordere d By: Severo Lea on 02-07-2022 pH (U) 6.0 [pH] 5.0-9.0 [facility] COVID-19 Antigenon 2 COVID-19 Antigen Healthcare Worker?: N Teresa Reference Teresa Reference Negative SARS-CoV+SARS-CoV-2 (COVID-19) Ag [Presence] in Respiratory specimen by Rapid immunoassay Negative for SARS Antigen by [employer] COVID19 Blank Space -- Teresa Disclaimer Negative results, from patients with symptom Teresa Disclaimer onset beyond five days, should be treated as Teresa Disclaimer presumptive and confirmation with a molecular Teresa Disclaimer assay, if necessary, for patient management, Teresa Disclaimer may be performed. Negative results do not rule Teresa Disclaimer out COVID-19 and should not be used as the sole Teresa Disclaimer basis for treatment or patient management Teresa Disclaimer decisions, including infection control decisions. Teresa Disclaimer Negative results should be considered in the Teresa Disclaimer context of a patient's recent exposures, history Teresa Disclaimer and the presence of clinical signs and symptoms Teresa Disclaimer consistent with COVID-19. COVID19 Blank Space -- Teresa Disclaimer The Teresa SARS Antigen DEM[employer]US does not differentiate Teresa Disclaimer between SARS-CoV and SARS-CoV-2. COVID19 Blank Space -- Teresa Disclaimer This test was developed and its performance Teresa Disclaimer characteristic determined by [employer] and Teresa Disclaimer validated at [facility]. This Teresa Disclaimer test has not been FDA cleared or approved. This Teresa Disclaimer test has been authorized by FDA under an Emergency Use Teresa Disclaimer Authorization (EUA). This test has been validated Teresa Disclaimer in accordance with the FDA's Guidance Document (Policy Teresa Disclaimer for Diagnostics Testing in Laboratories Certified to Teresa Disclaimer Perform High Complexity Testing under CLIA prior to Teresa Disclaimer Emergency Use Authorization for Coronavirus Teresa Disclaimer iseas during the Public Health Emergency) Teresa Disclaimer issued on December 20, 2019. This test is only authorized Teresa Disclaimer for the duration of time the declaration that Teresa Disclaimer circumstances exist justifying the authorization of Teresa Disclaimer the emergency use of in vitro diagnostic tests for Teresa Disclaimer detection of SARS-CoV-2 virus and/or diagnosis of Teresa Disclaimer COVID-19 infection under section 564(b)(1) of the Teresa Disclaimer Act, 21 U.S.C. 360bbb-3(b)(1), unless the Teresa Disclaimer authorization is terminated or revoked sooner. PERFORMED BY: [facility] [address] [facility] [place] [address] PATHOLOGIST SET UP [employer] BORIS ELIZABETH M.D. [facility] Comment on above: Performed By: #### C OVID-19 TERESA, SOFIANEG #### [facility] [address] COVID-19 SOFIAOrdered By: Juve Morris on 11-16-2021 SARS-CoV+SARS-CoV-2 (COVID-19) Ag IA.rapid Ql (Resp) Negative Negative [facility] Comment on above: This is a duplicate Teresa SARS Antigen (DEMETRIUS) result to be used for statistical tracking purpose only. No Panel InformationOrdered By: Augustin Morris on 11-16-2021 SARS Antigen (LFIA) [facility] Teresa Ag Negativeon 11-16-19 Teresa Ag Negative Negative Normal Negative [facility] Comment on above: Result Comment: This is a duplicate Teresa SARS Antigen (DEMETRIUS) result to be used for statistical tracking purpose only. PERFORMED BY: [place] [address] PATHOLOGIST SET UP [employer] BORIS ELIZABETH M.D. Performed By: #### C OVID-19 TERESA, SOFIANEG #### [address] [address] Vital Signs Date Time Vital Sign Value Performing Clinician Faci lity 02-07-2022 20:47-0400 Body height 161.29 cm MD Joe Rosenberg Work Phone: [facility] 02-07-2022 20:47-0400 Body mass index (BMI) [Percentile] Per age and sex 79.7 % MD Joe Rosenberg Work Phone: [facility] 02-07-2022 20:47-0400 Body mass index (BMI) [Ratio] 24.7 kg/m2 MD Joe Rosenberg Work Phone: [facility] 02-07-2022 20:47-0400 Body weight 64.41 kg MD Joe Rosenberg Work Phone: [facility] 02-07-2022 20:46-0400 Body temperature 98.6 [degF] MD Joe Rosenberg Work Phone: [facility] 02-07-2022 20:46-0400 Diastolic blood pressure 84 mm[Hg] MD Joe Rosenberg Work Phone: [facility] 05-22-2022 20:46-0400 Heart rate 95 /min MD Joe Rosenberg Work Phone: [facility] 02-07-2022 20:46-0400 Respiratory rate 18 /min MD Joe Rosenberg Work Phone: [facility] 02-07-2022 20:46-0400 SaO2% (BldA) [Mass fraction] 100 % MD Joe Rosenberg Work Phone: [facility] 02-07-2022 20:46-0400 Systolic blood pressure 138 mm[Hg] MD Joe Rosenberg Work Phone: [facility] Encounters Encounter Date Encounter Type Care Provider Facility Start: 10-19-2023 End: 10-19-2023 ambulatory HUE FLORES Not Available Start: 08-24-2023 End: 08-24-2023 ambulatory HUE FLORES Not Available Start: 01-10-2023 End: 01-11-[address] JOE ROSENBERG . Facility:[facility] Start: 11-12-2022 End: 11-12-[address] HUE FLORES . Facility:[facility] Start: 11-05-2022 Encounter for other preprocedural examination DR HUE FLORES . [facility] Start: 11-01-2022 End: 11-02-[address] HUE FLORES . Facility:[facility] Start: 11-01-2022 End: 11-02-2022 Encounter for other preprocedural examination DR HUE FLORES . Facility:[facility] Start: 10-19-2022 End: 10-20-[address] HUE FLORES . Facility:[facility] Start: 10-15-2022 End: 10-16-[address] HUE FLORES . Facility:[facility] Start: 10-06-2022 End: 10-07-[address] HUE FLORES . Facility:[facility] Start: 05-04-2022 End: 05-04-[address] REBECCA GIBBS . Facility:[facility] Start: 02-07-2022 End: 02-07-2022 Emergency department patient visit MD Joe Rosenberg Work Phone: [facility] Start: 11-16-2021 End: 11-16-2021 Patient encounter procedure MD Joe Rosenberg Work Phone: [facility] Procedures Date Procedure Procedure Detail Performing Clinician Start: 11-16-2021 SARS Antigen (LFIA) MD Joe Rosenberg Work Phone: Plan of Treatment Date Care Activity Detail Author Patient Education Abdominal Pain , Adult ED Gastritis ED [facility] Work Phone: Patient referral [facility] Work Phone: Payers Date Payer Category Payer Unknown [id number] [id number] [id number] 2003 Unknown [id number] 2.16.84 [id number] 2003 Unknown [id number] 2.16.84 [id number] 2003 Unknown [id number] 2.16.84 [id number] 2003 Unknown [id number] 2.16.84 [id number] 2003 Unknown [id number] 2.16.84 [id number] 2003 Unknown [id number] 2.16.84 [id number] 2003 Unknown [id number] 2.16.84 [id number] 2003 Unknown [id number] 1961 Medicaid [id number] [id number] Self-pay Self Pay [id number] Social History Date Type Detail Facility Start: 02-07-2022 Tobacco smoking stat [facility] Never smoked tobacco (finding) [facility] Start: 2005 Sex Assigned At Female F [facility] Clinical Note 01-10-2023 Note Date & Type Note Facility 01-10-2023 Note PROCEDURE: XR HIPS B IL 5V W PELVIS HISTORY: Pain in thoracic spine ; bilateral hip pain, right greater than left COMPARISON: None. FINDINGS: BONES:No fracture, acute abnormality, or significant arthropathy. SOFT TISSUES:No visible soft tissue swelling. EFFUSION:None visible. OTHER: Negative. IMPRESSION: 1. Normal examination. Electronically authenticated by: JOY CARDOZA Date: 2023-01-10 11:58 [facility] Clinical Note 11-12-2022 Note Date & Type Note Facility 11-12-2022 Note OP Note OPERATION DATE: 11/12/2022 PROCEDURE: Diagnostic laparoscopy with left ovarian cystotomy with drainage of chocolate cyst with left ovarian cystectomy, lysis of adhesions and fulguration of endometriosis on the patient's right ovary. PREOPERATIVE DIAGNOSIS: Pelvic pain, suspect endometriosis; left ovarian cyst. POSTOPERATIVE DIAGNOSIS: Pelvic pain, suspect endometriosis; left ovarian cyst. ANESTHESIA: General. SURGEON: Hue Flores D.O. MARKETING PROPOSAL COORDINATOR: KATHY Max URINE OUTPUT: Yellow and clear. BLOOD LOSS: 5 mL. FINDINGS: Endometriosis on the patient's right ovary, large approximately 6-7 cm chocolate cyst on the patient's left ovarian, endometrioma; otherwise, normal appearing uterus and tubes. SPECIMEN: Right ovarian cyst wall. PROCEDURE: The patient was taken back to the Operating Room where she was placed in dorsal lithotomy position after given general anesthesia. The patient was prepped and draped in normal sterile fashion. A sponge stick was placed into the patient's vagina. Attention was turned to the patient's abdomen, where a small umbilical incision was made. The fascia was tented using Curt clamps and the fascia was entered sharply. Confirmation of intra-abdominal placement of the 10 mm port was confirmed under direct visualization using a laparoscope. The patient's abdomen was then insufflated using CO2 gas with approximately 4 liters. A second port was placed left laterally; this was done under direct visualization with a 5 mm port. Survey of the patient's abdomen demonstrated normal liver and gallbladder. Survey of the patient's pelvic anatomy demonstrated normal appearing ovaries and tubes as well as normal appearing uterus. No endometrial implants could be noted, no evidence of any pelvic disease was seen, normal appearing pelvic cavity. All instruments were removed from the patient's abdomen. The patient's abdomen was desufflated of CO2 gas. The patient tolerated the procedure well. Sponge stick was removed from the patient's vagina. The patient's infraumbilical fascia was closed using #0 Vicryl on a GI needle. The patient's skin was closed laterally and infraumbilically using 4-0 Vicryl. The patient tolerated the procedure well. Sponge, lap and needle counts were correct x 2. The patient was taken to Recovery Room in stable condition. (Dr. Flores requested: Please dictated standard robotic assisted diagnostic laparoscopy with left ovarian cystotomy, with left ovarian cystectomy, fulguration of endometrial implant of the right ovary, with lysis of adhesion of the posterior cul-de-sac, as well as the pelvic side wall of wall. No such procedure is available. Dr. Flores said he would make any addendum necessary at the time of signing off dictation, so I inserted the regular diagnostic laparoscopy procedure only.) ? [facility] Clinical Note 11-12-2022 Note Date & Type Note Facility 11-12-2022 Note OP Note OPERATION DATE: 11/12/2022 PROCEDURE: Diagnostic laparoscopy with left ovarian cystotomy with drainage of chocolate cyst with left ovarian cystectomy, lysis of adhesions and fulguration of endometriosis on the patient's right ovary. PREOPERATIVE DIAGNOSIS: Pelvic pain, suspect endometriosis; left ovarian cyst. POSTOPERATIVE DIAGNOSIS: Pelvic pain, suspect endometriosis; left ovarian cyst. ANESTHESIA: General. SURGEON: Hue Flores D.O. MARKETING PROPOSAL COORDINATOR: KATHY Max URINE OUTPUT: Yellow and clear. BLOOD LOSS: 5 mL. FINDINGS: Endometriosis on the patient's right ovary, large approximately 6-7 cm chocolate cyst on the patient's left ovarian, endometrioma; otherwise, normal appearing uterus and tubes. SPECIMEN: Right ovarian cyst wall. PROCEDURE: The patient was taken back to the Operating Room where she was placed in dorsal lithotomy position after given general anesthesia. The patient was prepped and draped in normal sterile fashion. A sponge stick was placed into the patient's vagina. Attention was turned to the patient's abdomen, where a small umbilical incision was made. The fascia was tented using Curt clamps and the fascia was entered sharply. Confirmation of intra-abdominal placement of the 10 mm port was confirmed under direct visualization using a laparoscope. The patient's abdomen was then insufflated using CO2 gas with approximately 4 liters. A second port was placed left laterally; this was done under direct visualization with a 5 mm port. Survey of the patient's abdomen demonstrated normal liver and gallbladder. Survey of the patient's pelvic anatomy demonstrated normal appearing ovaries and tubes as well as normal appearing uterus. No endometrial implants could be noted, no evidence of any pelvic disease was seen, normal appearing pelvic cavity. All instruments were removed from the patient's abdomen. The patient's abdomen was desufflated of CO2 gas. The patient tolerated the procedure well. Sponge stick was removed from the patient's vagina. The patient's infraumbilical fascia was closed using #0 Vicryl on a GI needle. The patient's skin was closed laterally and infraumbilically using 4-0 Vicryl. The patient tolerated the procedure well. Sponge, lap and needle counts were correct x 2. The patient was taken to Recovery Room in stable condition. (Dr. Flores requested: Please dictated standard robotic assisted diagnostic laparoscopy with left ovarian cystotomy, with left ovarian cystectomy, fulguration of endometrial implant of the right ovary, with lysis of adhesion of the posterior cul-de-sac, as well as the pelvic side wall of wall. No such procedure is available. Dr. Flores said he would make any addendum necessary at the time of signing off dictation, so I inserted the regular diagnostic laparoscopy procedure only.) [facility] Evaluation note Note Date & Type Note Facility Evaluation note [facility]: Chief Complaint and Reason for Visit Chief Complaint exposure Abd Pain, Nausea Advance Directives No Advanced Directives Records Found Advance Directive Response Recorded Date/ Time Advance Directives No October 3:55pm Summary Purpose Family History No Family History Records FoundNo Family History Records FoundNo Family History Records Found Additional Source Comments Care Teams (unrecognized sec tion and content) Team Status: Inactive Member Role Status Dates Joe Rosenberg MD Primary Care Provider Active Donta Stewart MD Attending Provider Active Team Status: Inactive Member Role Status Dates Joe Rosenberg MD Primary Care Provider Active Severo Lea MD Emergency Provider Active Team Status: Active Member Role Status Dates Joe Rosenberg MD Primary Care Provider Active Goals (unrecognized section and content) Goals may be documented in a n alternate section INFORMATION SOURCE (unrecogn ized section and content) DATE CREATED AUTHOR 02/24/2022 [facility] DATE CREATED AUTHOR AUTHOR'S ORGANIZ ATION 01/11/2023 [facility] DATE CREATED AUTHOR AUTHOR'S ORGANIZ ATION 10/20/2023 [facility] EPIC FOR RECORDS PERTAINING TO PATIENTS WHO ARE OR HAVE BEEN ENROLLED IN A CHEMICAL DEPENDENCY/SUBSTANCEABUSE PROGRAM, SOME INFORMATION MAY BE OMITTED. This clinical summary was aggregated from multiple sources. Caution should be exercised in using it in the provision of clinical care. This summary normalizes information from multiple sources, and as a consequence, information in this document may materially change the coding, format and clinical context of patient data. In addition, data may be omitted in some cases. CLINICAL DECISIONS SHOULD BE BASED ON THE PRIMARY CLINICAL RECORDS. [employer] [facility]. provides no warranty or guarantee of the accuracy or completeness of information in this document.
== END 2023-10-25 09:07 | disposition home or self-care (01) ==
PROVIDERS: PCP Family Medicine; Visit Provider Obstetrics & Gynecology
DX: Z01.818 Encounter for other preprocedural examination (principal); R10.2 Pelvic and perineal pain; N83.202 Unspecified ovarian cyst, left side

== ENCOUNTER 2023-11-03 15:16 | Outpatient (OUT) | payer OTHER, SELFPAY ==
[2023-11-03 16:15] LABS: Lactate Dehydrogenase 129 U/L (81-234)
[2023-11-05 04:07] LABS: HCG Tumor Marker <1 mIU/mL (.)
[2023-11-05 08:13] LABS: AFP, Serum, Tumor Marker 6.2 ng/mL (0.0-4.7); CEA 1.7 ng/mL (0.0-4.7); Cancer Antigen (CA) 125 77.3 U/mL (0.0-38.1)
== END 2023-11-03 15:17 | disposition home or self-care (01) ==
LOC: LAB 15:19
PROVIDERS: PCP Family Medicine; Visit Provider Obstetrics & Gynecology
DX: N83.299 Other ovarian cyst, unspecified side (principal)
CPT/HCPCS: 36415; 82105; 82378; 83615; 84702; 86304

== ENCOUNTER 2023-11-04 08:45 | Day surgery (SDC) | payer OTHER, SELFPAY ==
[2023-10-25 09:31] VITALS: BP 128/81; PULSE 78; RESP 14; TEMP 36.3; O2SAT 97; BMI 23.4
[2023-11-04] VITALS (11 sets, daily range): BP systolic 108–140; BP diastolic 72–97; PULSE 53–72; RESP 11–31; TEMP 36.2–36.4; O2SAT 98–100; BMI 24.3
[2023-11-04 08:55] LABS: Basophils Percent Auto 0.5 % (0.2-2.0); Eosinophils Absolute Auto 0.1 10^3/uL (0.0-0.7); Eosinophils Percent Auto 0.9 % (0.9-7.0); Hematocrit 43.4 % (36.0-48.0); Hemoglobin 14.2 g/dL (12.0-16.0); Immature Granulocytes Abs Auto 0.03 10^3/uL (0.00-0.03); Immature Granulocytes Pct Auto 0.4 % (0.0-0.5); Lymphocytes Absolute Auto 2.9 10^3/uL (1.2-3.8); Lymphocytes Percent Auto 36.4 % (20.5-60.0); Mean Corpuscular HGB Conc 32.7 g/dL (29.9-35.2); Mean Corpuscular Volume 85.6 fL (81.0-99.0); Monocytes Absolute Auto 0.6 10^3/uL (0.3-0.8); Neutrophils Absolute Auto 4.4 10^3/uL (1.4-6.5); Neutrophils Percent Auto 54.8 % (43.0-75.0); Platelet Count 302 10^3/uL (150-450); Red Blood Count 5.07 10^6/uL (4.20-5.40); Red Cell Distribution Width 13.2 % (11.0-15.0)
--- OUTSIDE RECORDS SUMMARY | 2023-11-04 09:05 | XMS_ITS | CCD ---
Author Name Unknown Address [address] [place] [address] Organization [facility] Care Team Providers Care Bog Cutter Name Role Phone MD Joe Rosenberg Primary Care Provider [phone] MD Donta Stewart Attending Provider MD Severo [...] JOY CARDOZA Date: 2023-01-10 11:59 Normal [facility] CBC AUTO DIFFon 11-12-2022 BASO # 0.0 103/ul Normal 0.0-0.1 [facility] Comment on above: Performed By: #### C BC #### [facility] [address] [address] [address] Hilda Harden Basophils/100 WBC (Bld) 0.3 % Normal 0.2-2.0 [facility] Comment on above: Performed By: #### C BC #### [facility] [address] [address] [address] Hilda Harden EO # 0.1 103/ul Normal 0.0-0.7 [facility] Comment on above: Performed By: #### C BC #### [facility] [address] [address] [address] Hilda Harden Eosinophils/100 WBC (Bld) 1.3 % Normal 0.9-7.0 [facility] Comment on above: Performed By: #### C BC #### [facility] [address] [address] [address] Hilda Harden Erythrocyte distribution width (RBC) [Ratio] 13.3 % Normal 11.0-15.0 [facility] Comment on above: Performed By: #### C BC #### [facility] [address] [place] [address] Dr. Hilda Harden Hematocrit (Bld) [Volume fraction] 40.9 % Normal 36.0-48.0 [facility] Comment on above: Performed By: #### C BC #### [facility] [address] [place] [address] Dr. Hilda Harden Hemoglobin (Bld) [Mass/Vol] 13.9 g/dL Normal 12.0-16.0 [facility] Comment on above: Performed By: #### C BC #### [facility] [address] [place] [address] Dr. Hilda Harden IG # 0.02 10e3/ul Normal 0.00-0.03 [facility] Comment on above: Performed By: #### C BC #### [facility] [address] [place] [address] Dr. Hilda Harden IG % 0.3 % Normal 0.0-0.5 [facility] Comment on above: Performed By: #### C BC #### [facility] [address] [place] [address] Dr. Hilda Harden LYMPH # 2.5 103/ul Normal 1.2-3.8 [facility] Comment on above: Performed By: #### C BC #### [facility] [address] [place] [address] Dr. Hilda Harden Lymphocytes/100 WBC (Bld) 41.4 % Normal 20.5-60.0 [facility] Comment on above: Performed By: #### C BC #### [facility] [address] [place] [address] Dr. Hilda Harden MANUAL DIFF REQ NO Normal [facility] Comment on above: Performed By: #### C BC #### [facility] [address] [place] [address] Dr. Hilda Harden MCH (RBC) [Entitic mass] 28.8 pg Normal 26.7-34.0 [facility] Comment on above: Performed By: #### C BC #### [facility] [address] [place] [address] Dr. Hilda Harden MCHC (RBC) [Mass/Vol] 34.0 g/dL Normal 29.9-35.2 [facility] Comment on above: Performed By: #### C BC #### [facility] [address] [address] [address] Hilda Harden MCV (RBC) [Entitic vol] 84.9 fL Normal 81.0-99.0 [facility] Comment on above: Performed By: #### C BC #### [facility] [address] [place] [address] Dr. Hilda Harden MONO # 0.4 103/ul Normal 0.3-0.8 [facility] Comment on above: Performed By: #### C BC #### [facility] [address] [place] [address] Dr. Hilda Harden Monocytes/100 WBC (Bld) 6.9 % Normal 1.7-12.0 [facility] Comment on above: Performed By: #### C BC #### [facility] [address] [place] [address] Dr. Hilda Harden NEUT # 3.0 103/ul Normal 1.4-6.5 [facility] Comment on above: Performed By: #### C BC #### [facility] [address] [place] [address] Dr. Hilda Harden Neutrophils/100 WBC (Bld) 49.8 % Normal 43.0-75.0 [facility] Comment on above: Performed By: #### C BC #### [facility] [address] [place] [address] Dr. Hilda Harden Platelet mean volume (Bld) [Entitic vol] 9.6 fL Normal 9.5-13.5 [facility] Comment on above: Performed By: #### C BC #### [facility] [address] [place] [address] Dr. Hilda Harden PLT 279 103/ul Normal 150-450 [facility] Comment on above: Performed By: #### C BC #### [facility] [address] [place] [address] Dr. Hilda Harden RBC 4.82 106/ul Normal 4.20-5.40 [facility] Comment on above: Performed By: #### C BC #### [facility] [address] [place] [address] Dr. Hilda Harden WBC 6.1 103/ul Normal 4.0-11.0 [facility] Comment on above: Performed By: #### C BC #### [facility] [address] [place] [address] Dr. Hilda Harden PREG QUANT HCGon 11-12-2022 HCG QUANT <1 Normal [facility] Comment on above: Performed By: #### C T/NGNA #### [facility] [address] [place] [address] Dr. Hilda Harden HCG RANGE SEE BELOW Normal [facility] Comment on above: Result Comment: 5-50 0.2-1 WEEK 50-500 1-2 WEEKS 100-5,000 2-3 WEEKS 500-10,000 3-4 WEEKS 1,000-50,000 4-5 WEEKS 10,000-100,000 5-6 WEEKS 15,000-200,000 6-8 WEEKS 10,000-100,000 2-3 MONTHS Performed By: #### C T/NGNA #### [facility] [address] [place] [address] Dr. Hilda Harden AFP (TUMOR MARKER)on 023 AFP, Serum, Tumor Marker 4.9 ng/mL Critically high 0.0-4. 7 [facility] Comment on above: Result Comment: [employer] Electrochemiluminescence Immunoassay (ECLIA) . Values obtained with different assay methods or kits cannot be used interchangeably. Results cannot be interpreted as absolute evidence of the presence or absence of malignant disease. . This test is not interpretable in females. Performed By: #### A FP. #### [facility] [address] [place] [address] Dr. Hilda Harden CA 125on 10-20-2022 Cancer Antigen (CA) 125 34.1 U/mL Normal 0.0-38.1 [facility] Comment on above: Result Comment: [employer] Electrochemiluminescence Immunoassay (ECLIA) . Values obtained with different assay methods or kits cannot be used interchangeably. Results cannot be interpreted as absolute evidence of the presence or absence of malignant disease. Performed By: #### C A 125 #### [facility] [address] [place] [address] Dr. Hilda Harden CEAon 10-20-2022 CEA 1.3 ng/mL Normal 0.0-4.7 [facility] Comment on above: Result Comment: Nons mokers <3.9 Smokers <5.6 . [employer] Electrochemiluminescence Immunoassay (ECLIA) . Values obtained with different assay methods or kits cannot be used interchangeably. Results cannot be interpreted as absolute evidence of the presence or absence of malignant disease. Performed By: #### C T/NGNA #### [facility] [address] [place] [address] Dr. Hilda Harden HCG QUANT TUMOR MARKERon HCG QNT TUMOR MARKER <1 Normal [facility] Comment on above: Result Comment: Fema le [...] developed and its performance characteristics determined by [employer]. It has not been cleared or approved by the Food and Drug Administration for use as a tumor marker. . This test is not interpretable as a tumor marker in females. Performed By: #### H CGTMOR #### [facility] [address] [place] [address] Dr. Hilda Harden LDHon 10-19-2022 LDH 140 U/L Normal 81-234 [facility] Comment on above: Performed By: #### L DH #### [facility] [address] [place] [address] Dr. Hilda Harden US PELVIS AND TRANSVAGon [...] JOY CARDOZA Date: 2022-10-15 13:53 Normal [facility] DHEA SERUMon 10-10-2022 Dehydroepiandrosterone (DHEA) 640 ng/dL Critically high 40-491 [facility] Comment on above: Result Comment: Age 1 [...] 701 Performed By: #### D HEA. #### [facility] [address] [place], [place] [address] Dr. Hilda Harden DHEA-SULFATEon 10-07-2022 DHEA-Sulfate 201.0 ug/dL Normal 110.0-433. 2 [facility] Comment on above: Performed By: #### C T/NGNA #### [facility] [address] [place], [place] [address] Dr. Hilda Harden FSHon 10-07-2022 FSH 4.1 mIU/mL Normal [facility] Comment on above: Result Comment: Adul t Female: Follicular phase 3.5 - 12.5 Ovulation phase 4.7 - 21.5 Luteal phase 1.7 - 7.7 Postmenopausal 25.8 - 134.8 Performed By: #### C T/NGNA #### [facility] [address] [place] [address] Dr. Hilda Harden LUTEINIZING HORMONE (LH)on 0 10-07-2022 LH 7.9 mIU/mL Normal [facility] Comment on above: Result Comment: Adul t Female: Follicular phase 2.4 - 12.6 Ovulation phase 14.0 - 95.6 Luteal phase 1.0 - 11.4 Postmenopausal 7.7 - 58.5 Performed By: #### C BC #### [facility] [address] [place] [address] Dr. Hilda Harden CBC AUTO DIFFon 10-06-2022 BASO # 0.0 103/ul Normal 0.0-0.1 [facility] Comment on above: Performed By: #### C BC #### [facility] [address] [place] [address] Dr. Hilda Harden Basophils/100 WBC (Bld) 0.3 % Normal 0.2-2.0 [facility] Comment on above: Performed By: #### C BC #### [facility] [address] [place] [address] Dr. Hilda Harden EO # 0.1 103/ul Normal 0.0-0.7 [facility] Comment on above: Performed By: #### C BC #### [facility] [address] [place] [address] Dr. Hilda Harden Eosinophils/100 WBC (Bld) 1.8 % Normal 0.9-7.0 [facility] Comment on above: Performed By: #### C BC #### [facility] [address] [place] [address] Dr. Hilda Harden Erythrocyte distribution width (RBC) [Ratio] 13.3 % Normal 11.0-15.0 [facility] Comment on above: Performed By: #### C BC #### [facility] [address] [place] [address] Dr. Hilda Harden Hematocrit (Bld) [Volume fraction] 39.9 % Normal 36.0-48.0 [facility] Comment on above: Performed By: #### C BC #### [facility] [address] [place] [address] Dr. Hilda Harden Hemoglobin (Bld) [Mass/Vol] 13.1 g/dL Normal 12.0-16.0 [facility] Comment on above: Performed By: #### C BC #### [facility] [address] [place] [address] Dr. Hilda Harden IG # 0.02 10e3/ul Normal 0.00-0.03 [facility] Comment on above: Performed By: #### C BC #### [facility] [address] [place] [address] Dr. Hilda Harden IG % 0.3 % Normal 0.0-0.5 [facility] Comment on above: Performed By: #### C BC #### [facility] [address] [place] [address] Dr. Hilda Harden LYMPH # 2.1 103/ul Normal 1.2-3.8 [facility] Comment on above: Performed By: #### C BC #### [facility] [address] [place] [address] Dr. Hilda Harden Lymphocytes/100 WBC (Bld) 31.8 % Normal 20.5-60.0 [facility] Comment on above: Performed By: #### C BC #### [facility] [address] [place] [address] Dr. Hilda Harden MANUAL DIFF REQ NO Normal [facility] Comment on above: Performed By: #### C BC #### [facility] [address] [place] [address] Dr. Hilda Harden MCH (RBC) [Entitic mass] 27.8 pg Normal 26.7-34.0 [facility] Comment on above: Performed By: #### C BC #### [facility] [address] [place] [address] Dr. Hilda Harden MCHC (RBC) [Mass/Vol] 32.8 g/dL Normal 29.9-35.2 [facility] Comment on above: Performed By: #### C BC #### [facility] [address] [place] [address] Dr. Hilda Harden MCV (RBC) [Entitic vol] 84.5 fL Normal 81.0-99.0 [facility] Comment on above: Performed By: #### C BC #### [facility] [address] [place] [address] Dr. Hilda Harden MONO # 0.5 103/ul Normal 0.3-0.8 [facility] Comment on above: Performed By: #### C BC #### [facility] [address] [place] [address] Dr. Hilda Harden Monocytes/100 WBC (Bld) 7.8 % Normal 1.7-12.0 [facility] Comment on above: Performed By: #### C BC #### [facility] [address] [place] [address] Dr. Hilda Harden NEUT # 3.8 103/ul Normal 1.4-6.5 [facility] Comment on above: Performed By: #### C BC #### [facility] [address] [place] [address] Dr. Hilda Harden Neutrophils/100 WBC (Bld) 58.0 % Normal 43.0-75.0 [facility] Comment on above: Performed By: #### C BC #### [facility] [address] [place] [address] Dr. Hilda Harden Platelet mean volume (Bld) [Entitic vol] 9.7 fL Normal 9.5-13.5 [facility] Comment on above: Performed By: #### C BC #### [facility] [address] [place] [address] Dr. Hilda Harden PLT 266 103/ul Normal 150-450 [facility] Comment on above: Performed By: #### C BC #### [facility] [address] [place] [address] Dr. Hilda Harden RBC 4.72 106/ul Normal 4.20-5.40 [facility] Comment on above: Performed By: #### C BC #### [facility] [address] [place] [address] Dr. Hilda Harden WBC 6.6 103/ul Normal 4.0-11.0 [facility] Comment on above: Performed By: #### C BC #### [facility] [address] [place] [address] Dr. Hilda Harden FREE T4on 10-06-2022 Free T4 [Mass/Vol] 1.09 ng/dL Normal 0.78-1.34 [facility] Comment on above: Performed By: #### C T/NGNA #### [facility] [address] [place] [address] Dr. Hilda Harden GLYCOHEMOGLOBIN A1Con 2022 ADA RECOMMENDATION SEE BELOW Normal [facility] Comment on above: Result Comment: ADA RECOMMENDED LIMIT 4.0 - 6.0 ADA THERAPEUTIC TARGET < 7.0 ACTION SUGGESTED > 7.0 Performed By: #### A 1C #### [facility] [address] [place] [address] Dr. Hilda Harden Glucose [Mass/Vol] 100 mg/dL Normal [facility] Comment on above: Performed By: #### A 1C #### [facility] [address] [place] [address] Dr. Hilda Harden HbA1c (Bld) [Mass fraction] 5.1 % Normal 4.5-6.2 [facility] Comment on above: Performed By: #### A 1C #### [facility] [address] [place] [address] Dr. Hilda Harden TSHon 10-06-2022 TSH 1.199 uIU/mL Normal 0.516-4.13 0 [facility] Comment on above: Performed By: #### T SH #### [facility] [address] [place] [address] Dr. Hilda Harden CHLAMYDIA/GONOCOCCUS RON (SW AB/URINE/PAPon 05-07-2022 Chlamydia trachomatis, RON Negative Normal Negative [facility] Comment on above: Performed By: #### C T/NGNA #### [facility] [address] [address] [address] Hilda Harden Neisseria gonorrhoeae, RON Negative Normal Negative [facility] Comment on above: Performed By: #### C T/NGNA #### [facility] [address] [address] [address] Hilda Harden VAGINITIS/VAGINOSIS DNA PROB Harinder 05-06-2022 Shannen species Negative Normal Negative [facility] Comment on above: Performed By: #### C BC #### [facility] [address] [address] [address] Hilda Harden Gardnerella vaginalis Positive Abnormal Negative [facility] Comment on above: Performed By: #### C BC #### [facility] [address] [address] [address] Hilda Harden Trichomonas vaginalis Negative Normal Negative [facility] Comment on above: Performed By: #### C BC #### [facility] [address] [address] [address] Hilda Harden Amylaseon 02-07-2022 Amylase [Catalytic activity/Vol] 70 U/L Normal 28-100 [facility] Comment on above: Performed By: #### A MY, CBC, LIPASE, CMP #### [address] Basophils Auto (Bld) [#/Vol] Ordered By: Severo Lea on 02-07-2022 Basophils (Bld) [#/Vol] 0.0 10*3/uL 0.0-0.1 [facility] Basophils/100 WBC Auto (Bld) Ordered By: Severo Lea on 02-07-2022 Basophils/100 WBC (Bld) 0.6 % [facility] Bilirubin Test strip Ql (U)O rdered By: Severo Lea on 02-07-2022 Bilirubin Ql (U) Negative Negative [facility] Blood hemoglobin measurement (mass/volume)Ordered By: Severo Lea on 02-07-2022 Hemoglobin (Bld) [Mass/Vol] 13.8 g/dL 12.0-16.0 [facility] Blood leukocytes automated c ount (number/volume)Ordered By: Severo Lea on 02-07-2022 WBC (Bld) [#/Vol] 8.5 10*3/uL 4.5-13.5 [facility] Body fluid albumin measureme nt (mass/volume)Ordered By: Severo Lea on 02-07-2022 Albumin (Body fld) [Mass/Vol] 4.2 g/dL 3.2-5.5 [facility] Color Auto (U)Ordered By: Maren Lea on 02-07-2022 Color (U) Yellow Yellow [facility] Complete Blood Count Auto Di ffon 02-07-2022 Basophils (Bld) [#/Vol] 0.0 10*3/uL Normal 0.0-0.1 [facility] Comment on above: Result Comment: PERF ORMED BY: [place] [address] PATHOLOGIST DENTURE WAXER BORIS ELIZABETH M.D. Performed By: #### A MY, CBC, LIPASE, CMP #### [address] Basophils/100 WBC (Bld) 0.6 % Normal . [facility] Comment on above: Performed By: #### A MY, CBC, LIPASE, CMP #### [address] Eosinophils (Bld) [#/Vol] 0.1 10*3/uL Normal 0.0-0.7 [facility] Comment on above: Performed By: #### A MY, CBC, LIPASE, CMP #### [place] [address] [place] Eosinophils/100 WBC (Bld) 0.7 % Normal . [facility] Comment on above: Performed By: #### A MY, CBC, LIPASE, CMP #### [address] Erythrocyte distribution width (RBC) [Ratio] 14.2 % Normal 11.9-15.3 [facility] Comment on above: Performed By: #### A MY, CBC, LIPASE, CMP #### [address] Hematocrit (Bld) [Volume fraction] 41.5 % Normal 36.0-46.0 [facility] Comment on above: Performed By: #### A MY, CBC, LIPASE, CMP #### [address] Hemoglobin (Bld) [Mass/Vol] 13.8 g/dL Normal 12.0-16.0 [facility] Comment on above: Performed By: #### A MY, CBC, LIPASE, CMP #### [address] Lymphocytes (Bld) [#/Vol] 2.0 10*3/uL Normal 1.20-4.8 [facility] Comment on above: Performed By: #### A MY, CBC, LIPASE, CMP #### [address] Lymphocytes/100 WBC (Bld) 23.8 % Normal . [facility] Comment on above: Performed By: #### A MY, CBC, LIPASE, CMP #### [address] MCH (RBC) [Entitic mass] 28.6 pg Normal 25.0-35.0 [facility] Comment on above: Performed By: #### A MY, CBC, LIPASE, CMP #### [address] MCV (RBC) [Entitic vol] 85.8 fL Normal 78-102 [facility] Comment on above: Performed By: #### A MY, CBC, LIPASE, CMP #### [address] Mean Corpuscular HGB Conc 33.3 g/dL Normal 31.0-37.0 [facility] Comment on above: Performed By: #### A MY, CBC, LIPASE, CMP #### [address] Monocytes (Bld) [#/Vol] 0.6 10*3/uL Normal 0.1-1.00 [facility] Comment on above: Performed By: #### A MY, CBC, LIPASE, CMP #### [address] Monocytes/100 WBC (Bld) 7.6 % Normal . [facility] Comment on above: Performed By: #### A MY, CBC, LIPASE, CMP #### [address] Neutrophils (Bld) [#/Vol] 5.7 10*3/uL Normal 1.2-7.7 [facility] Comment on above: Performed By: #### A MY, CBC, LIPASE, CMP #### [address] Neutrophils/100 WBC (Bld) 67.3 % Normal . [facility] Comment on above: Performed By: #### A MY, CBC, LIPASE, CMP #### [address] Nucleated RBC/100 WBC (Bld) [Ratio] 0.0 % Normal 0-0.5 [facility] Comment on above: Performed By: #### A MY, CBC, LIPASE, CMP #### [address] Platelet mean volume (Bld) [Entitic vol] 8.6 fL Normal 6.3-10.7 [facility] Comment on above: Performed By: #### A MY, CBC, LIPASE, CMP #### [place] [address] [place] Platelets (Bld) [#/Vol] 304 10*3/uL Normal 150-450 [facility] Comment on above: Performed By: #### A MY, CBC, LIPASE, CMP #### [place] [address] [place] RBC (Bld) [#/Vol] 4.84 10*6/uL Normal 4.10-5.10 [facility] Comment on above: Performed By: #### A MY, CBC, LIPASE, CMP #### [address] [address] [place] WBC (Bld) [#/Vol] 8.5 10*3/uL Normal 4.5-13.5 [facility] Comment on above: Performed By: #### A MY, CBC, LIPASE, CMP #### [facility] [address] [place] [address] Comprehensive Metabolic Pane emigdio 02-07-2022 Albumin [Mass/Vol] 4.2 g/dL Normal 3.2-5.5 [facility] Comment on above: Performed By: #### A MY, CBC, LIPASE, CMP #### [address] Albumin/Globulin [Mass ratio] 1.8 {ratio} Normal [facility] Comment on above: Performed By: #### A MY, CBC, LIPASE, CMP #### [address] ALP [Catalytic activity/Vol] 46 U/L Normal 32-92 [facility] Comment on above: Performed By: #### A MY, CBC, LIPASE, CMP #### [address] ALT [Catalytic activity/Vol] 14 U/L Normal 10-60 [facility] Comment on above: Performed By: #### A MY, CBC, LIPASE, CMP #### [address] AST [Catalytic activity/Vol] 15 U/L Normal 10-42 [facility] Comment on above: Performed By: #### A MY, CBC, LIPASE, CMP #### [address] Bilirubin [Mass/Vol] 0.5 mg/dL Normal 0.3-1.2 [facility] Comment on above: Performed By: #### A MY, CBC, LIPASE, CMP #### [facility] [address] [place] [address] Calcium [Mass/Vol] 9.3 mg/dL Normal 8.2-10.2 [facility] Comment on above: Performed By: #### A MY, CBC, LIPASE, CMP #### [facility] [address] Chloride [Moles/Vol] 107 mmol/L Normal 95-114 [facility] Comment on above: Performed By: #### A MY, CBC, LIPASE, CMP #### [facility] [address] CO2 [Moles/Vol] 25.1 mmol/L Normal 22.0-30.0 [facility] Comment on above: Performed By: #### A MY, CBC, LIPASE, CMP #### [facility] [address] Creatinine [Mass/Vol] 0.82 mg/dL Normal 0.44-1.03 [facility] Comment on above: Performed By: #### A MY, CBC, LIPASE, CMP #### [facility] [address] Creatinine Clr Calc Pharmacy 100.48 [facility] Comment on above: Performed By: #### A MY, CBC, LIPASE, CMP #### [address] Estimated GFR ( Mari > 60 [facility] Comment on above: Result Comment: GFR estimated reference range: According to KDOQI guidelines, <60 ml/min/1.73m2 is sufficient to diagnose a patient with chronic kidney disease. Performed By: #### A MY, CBC, LIPASE, CMP #### [facility] [address] Estimated GFR (Non- Am > 60 [facility] Comment on above: Performed By: #### A MY, CBC, LIPASE, CMP #### [facility] [address] Globulin (S) [Mass/Vol] 2.4 g/dL Normal [facility] Comment on above: Performed By: #### A MY, CBC, LIPASE, CMP #### [facility] [address] Glucose [Mass/Vol] 94 mg/dL Normal 70-100 [facility] Comment on above: Result Comment: [place] Glucose Reference Range is dependent on time and content of last meal. Glucose of more than 200 mg/dL in a nonstressed, ambulatory subject supports the diagnosis of Diabetes Mellitus. ADA recommended reference range Performed By: #### A MY, CBC, LIPASE, CMP #### [facility] [address] Potassium [Moles/Vol] 4.2 mmol/L Normal 3.5-5.1 [facility] Comment on above: Performed By: #### A MY, CBC, LIPASE, CMP #### [facility] [address] Protein [Mass/Vol] 6.6 g/dL Normal 6.1-7.9 [facility] Comment on above: Performed By: #### A MY, CBC, LIPASE, CMP #### [facility] [address] [place] [address] [place] Sodium [Moles/Vol] 140 mmol/L Normal 136-146 [facility] Comment on above: Performed By: #### A MY, CBC, LIPASE, CMP #### [facility] [address] [place] [address] [place] Urea nitrogen [Mass/Vol] 11 mg/dL Normal 9-23 [facility] Comment on above: Performed By: #### A MY, CBC, LIPASE, CMP #### [facility] [address] [place] [address] [place] Creatinine and Glomerular fi ltration rate.predicted panel (S/P/Bld)Ordered By: Severo Lea on 02-07-2022 Creatinine [Mass/Vol] 0.82 mg/dL 0.44-1.03 [facility] Eosinophils Auto (Bld) [#/Vo l]Ordered By: Severo Lea on 02-07-2022 Eosinophils (Bld) [#/Vol] 0.1 10*3/uL 0.0-0.7 [facility] Eosinophils/100 WBC Auto (Bl d)Ordered By: Severo Lea on 02-07-2022 Eosinophils/100 WBC (Bld) 0.7 % [facility] Erythrocyte distribution wid th Auto (RBC) [Ratio]Ordered By: Severo Lea on 02-07-2022 Erythrocyte distribution width (RBC) [Ratio] 14.2 % 11.9-15.3 [facility] Estimated glomerular filtrat ion rate (GFR) non- AmericanOrdered By: Severo Lea on 02-07-2022 GFR/1.73 sq M.predicted among non-blacks MDRD (S/P/Bld) [Vol rate/Area] > 60 mL/Min [facility] Globulin Calc (S) [Mass/Vol] Ordered By: Severo Lea on 02-07-2022 Globulin (S) [Mass/Vol] 2.4 g/dL [facility] HCG ( test) IA.rapi d Ql (U)Ordered By: Severo Lea on 02-07-2022 HCG ( test) Ql (U) Negative [facility] HCG,Urineon 02-07-2022 Beta HCG ( test) Ql (U) Negative Normal [facility] Comment on above: Order Comment: Name Collection Type:: Clean-Voided Midstream Result Comment: PERF ORMED BY: [place] [address] PATHOLOGIST DENTURE WAXER BORIS ELIZABETH M.D. Performed By: #### U A, [facility] #### [address] Hematocrit Auto (Bld) [Volum e fraction]Ordered By: Severo Lea on 02-07-2022 Hematocrit (Bld) [Volume fraction] 41.5 % 36.0-46.0 [facility] Ketones Auto test strip (U) [Mass/Vol]Ordered By: Severo Lea on 02-07-2022 Ketones (U) [Mass/Vol] Trace Negative Fi [facility] - Chemistry and C hemistry - challengeOrdered By: Severo Lea on 02-07-2022 Lipase [Catalytic activity/Vol] 53.0 U/L [facility] Laboratory - Hematology and Cell countsOrdered By: Severo Lea on 02-07-2022 Nucleated RBC/100 WBC (Bld) [Ratio] 0.0 % 0-0.5 [facility] Lipaseon 02-07-2022 Lipase [Catalytic activity/Vol] 53.0 U/L High 22-51 [facility] Comment on above: Result Comment: PERF ORMED BY: [facility] [address] [place] [address] PATHOLOGIST DENTURE WAXER BORIS ELIZABETH M.D. Performed By: #### A MY, CBC, LIPASE, CMP #### [facility] [address] Lymphocytes Auto (Bld) [#/Vo l]Ordered By: Severo Lea on 02-07-2022 Lymphocytes (Bld) [#/Vol] 2.0 10*3/uL 1.20-4.8 [facility] Lymphocytes/100 WBC Auto (Bl d)Ordered By: Severo Lea on 02-07-2022 Lymphocytes/100 WBC (Bld) 23.8 % [facility] MCH Auto (RBC) [Entitic mass ]Ordered By: Severo Lea on 02-07-2022 MCH (RBC) [Entitic mass] 28.6 pg 25.0-35.0 [facility] MCHC Auto (RBC) [Mass/Vol]Or dered By: Severo Lea on 02-07-2022 MCHC (RBC) [Mass/Vol] 33.3 g/dL 31.0-37.0 [facility] MCV Auto (RBC) [Entitic vol] Ordered By: Severo Lea on 02-07-2022 MCV (RBC) [Entitic vol] 85.8 fL 78-102 [facility] Monocytes Auto (Bld) [#/Vol] Ordered By: Severo Lea on 02-07-2022 Monocytes (Bld) [#/Vol] 0.6 10*3/uL 0.1-1.00 [facility] Monocytes/100 WBC Auto (Bld) Ordered By: Severo Lea on 02-07-2022 Monocytes/100 WBC (Bld) 7.6 % [facility] Neutrophils Auto (Bld) [#/Vo l]Ordered By: Severo Lea on 02-07-2022 Neutrophils (Bld) [#/Vol] 5.7 10*3/uL 1.2-7.7 [facility] Neutrophils/100 WBC Auto (Bl d)Ordered By: Severo Lea on 02-07-2022 Neutrophils/100 WBC (Bld) 67.3 % [facility] Nitrite Test strip Ql (U)Ord ered By: Severo Lea on 02-07-2022 Nitrite Ql (U) Negative Negative [facility] No Panel InformationOrdered By: Severo Lea on 02-07-2022 Estimated GFR () > 60 mL/Min [facility] Comment on above: GFR estimated refere nce range: According to KDOQI guidelines, <60 ml/min/1.73m2 is sufficient to diagnose a patient with chronic kidney disease. Pharmacy Creatinine Clearance (Chem 100.48 [facility] Platelet mean volume Auto (B ld) [Entitic vol]Ordered By: Severo Lea on 02-07-2022 Platelet mean volume (Bld) [Entitic vol] 8.6 fL 6.3-10.7 [facility] Platelets Auto (Bld) [#/Vol] Ordered By: Severo Lea on 02-07-2022 Platelets (Bld) [#/Vol] 304 10*3/uL 150-450 [facility] Protein Auto test strip (U) [Mass/Vol]Ordered By: Severo Lea on 02-07-2022 Protein (U) [Mass/Vol] Negative Negative [facility] Protein [Mass/volume] in Ser um or PlasmaOrdered By: Severo Lea on 02-07-2022 Protein [Mass/Vol] 6.6 g/dL 6.1-7.9 [facility] RBC Auto (Bld) [#/Vol]Ordere d By: Severo Lea on 02-07-2022 RBC (Bld) [#/Vol] 4.84 10*6/uL 4.10-5.10 [facility] Serum or plasma alanine guerra otransferase measurement without P-5'-P (enzymatic activiOrdered By: Severo Lea on 02-07-2022 ALT No additional P-5'-P [Catalytic activity/Vol] 14 U/L 10-60 [facility] Serum or plasma albumin/glob ulin mass ratioOrdered By: Severo Lea on 02-07-2022 Albumin/Globulin [Mass ratio] 1.8 {ratio} [facility] Serum or plasma alkaline wil sphatase measurement (enzymatic activity/volume)Ordered By: Severo Lea on 02-07-2022 ALP [Catalytic activity/Vol] 46 U/L 32-92 [facility] Serum or plasma amylase jamar urement (enzymatic activity/volume)Ordered By: Severo Lea on 02-07-2022 Amylase [Catalytic activity/Vol] 70 U/L 28-100 [facility] Serum or plasma aspartate am inotransferase measurement (enzymatic activity/volume)Ordered By: Severo Lae on 02-07-2022 AST [Catalytic activity/Vol] 15 U/L 10-42 [facility] Serum or plasma calcium jamar urement (mass/volume)Ordered By: Severo Lea on 02-07-2022 Calcium [Mass/Vol] 9.3 mg/dL 8.2-10.2 [facility] Serum or plasma chloride payton surement (moles/volume)Ordered By: Severo Lea on 02-07-2022 Chloride [Moles/Vol] 107 mmol/L 95-114 [facility] Serum or plasma glucose jamar urement (mass/volume)Ordered By: Severo Lea on 02-07-2022 Glucose [Mass/Vol] 94 mg/dL 70-100 [facility] Comment on above: ADA recommended refe rence range Random Glucose Reference Range is dependent on time and content of last meal. Glucose of more than 200 mg/dL in a nonstressed, ambulatory subject supports the diagnosis of Diabetes Mellitus. Serum or plasma potassium me asurement (moles/volume)Ordered By: Severo Lea on 02-07-2022 Potassium [Moles/Vol] 4.2 mmol/L 3.5-5.1 [facility] Serum or plasma sodium measu rement (moles/volume)Ordered By: Severo Lea on 02-07-2022 Sodium [Moles/Vol] 140 mmol/L 136-146 [facility] Serum or plasma total biliru bin measurement (mass/volume)Ordered By: Severo Lea on 02-07-2022 Bilirubin [Mass/Vol] 0.5 mg/dL 0.3-1.2 [facility] Serum or plasma total carbon dioxide measurement (moles/volume)Ordered By: Severo Lea on 02-07-2022 CO2 [Moles/Vol] 25.1 mmol/L 22.0-30.0 [facility] Serum or plasma urea nitroge n measurement (mass/volume)Ordered By: Severo Lea on 02-07-2022 Urea nitrogen [Mass/Vol] 11 mg/dL 06-11 [facility] Specific gravity Auto test s trip (U) [Rel density]Ordered By: Severo Lea on 02-07-2022 Specific gravity (U) [Rel density] 1.027 1.001-1.03 0 [facility] Urinalysison 02-07-2022 Appearance (U) Clear Normal Clear [facility] Comment on above: Order Comment: Name Collection Type:: Clean-Voided Midstream Performed By: #### U A, UHCG #### [facility] [address] [place] [address] [place] Bilirubin,Urine Negative Normal Negative [facility] Comment on above: Order Comment: Name Collection Type:: Clean-Voided Midstream Performed By: #### U A, UHCG #### [facility] [address] [place] [address] [place] Color (U) Yellow Normal Yellow [facility] Comment on above: Order Comment: Name Collection Type:: Clean-Voided Midstream Performed By: #### U A, UHCG #### [facility] [address] [place] [address] [place] Glucose Ql (U) Normal Normal Normal [facility] Comment on above: Order Comment: Name Collection Type:: Clean-Voided Midstream Performed By: #### U A, UHCG #### [facility] [address] [place] [address] [place] Ketones Ql (U) Trace High Negative [facility] Comment on above: Order Comment: Name Collection Type:: Clean-Voided Midstream Performed By: #### U A, UHCG #### [facility] [address] [place] [address] [place] Leukocyte esterase Test strip Ql (U) Negative Normal Negative [facility] Comment on above: Order Comment: Name Collection Type:: Clean-Voided Midstream Performed By: #### U A, UHCG #### [facility] [address] [place] [address] [place] Nitrite,Urine Negative Normal Negative [facility] Comment on above: Order Comment: Name Collection Type:: Clean-Voided Midstream Performed By: #### U A, UHCG #### [address] Occult Blood,Urine Negative Normal Negative [facility] Comment on above: Order Comment: Name Collection Type:: Clean-Voided Midstream Performed By: #### U A, UHCG #### [address] pH (U) 6.0 [pH] Normal 5.0-9.0 [facility] Comment on above: Order Comment: Name Collection Type:: Clean-Voided Midstream Performed By: #### U A, UHCG #### [address] Protein,Urine Negative Normal Negative [facility] Comment on above: Order Comment: Name Collection Type:: Clean-Voided Midstream Performed By: #### U A, UHCG #### [address] Specificy [place],Urine 1.027 Normal 1.00 1-1.03 0 [facility] Comment on above: Order Comment: Name Collection Type:: Clean-Voided Midstream Performed By: #### U A, UHCG #### [facility] [address] [place] [address] [place] Urobilinogen,Urine Normal Normal Normal [facility] Comment on above: Order Comment: Name Collection Type:: Clean-Voided Midstream Performed By: #### U A, UHCG #### [facility] [address] [place] [address] [place] Urine clarity by refractomet ry automatedOrdered By: Severo Lea on 02-07-2022 Clarity Refractometry automated (U) Clear Clear [facility] Urine glucose measurement by automated test strip (mass/volume)Ordered By: Severo Lea on 02-07-2022 Glucose Auto test strip (U) [Mass/Vol] Normal mg/dL Normal [facility] Urine hemoglobin detection b y automated test stripOrdered By: Severo Lea on 02-07-2022 Hemoglobin Auto test strip Ql (U) Negative Negative [facility] Urine leukocyte esterase det ection by automated test stripOrdered By: Severo Lea on 02-07-2022 Leukocyte esterase Auto test strip Ql (U) Negative Negative [facility] Urobilinogen Auto test strip (U) [Mass/Vol]Ordered By: Severo Lea on 02-07-2022 Urobilinogen (U) [Mass/Vol] Normal mg/dL Normal [facility] pH Auto test strip (U)Ordere d By: Severo Lea on 02-07-2022 pH (U) 6.0 [pH] 5.0-9.0 [facility] COVID-19 Antigenon 2 COVID-19 Antigen Healthcare Worker?: [...] Negative results should be considered in the Tersea Disclaimer context of a patient's recent exposures, history Teresa Disclaimer and the presence of clinical signs and symptoms Teresa Disclaimer consistent with COVID-19. COVID19 Blank Space -- Teresa Disclaimer The Teresa SARS Antigen DEMETRIUS does not differentiate Teresa Disclaimer between SARS-CoV and SARS-CoV-2. COVID19 Blank Space -- Teresa Disclaimer This test was developed and its performance Teresa Disclaimer characteristic determined by [employer] and Teresa Disclaimer validated at [facility]. This Teresa Disclaimer test has not been [...] is terminated or revoked sooner. PERFORMED BY: [facility] [address] [place] [address] PATHOLOGIST DENTURE WAXER BORIS ELIZABETH M.D. [facility] Comment on above: Performed By: #### C OVID-19 TERESA, SOFIANEG #### [facility] [address] COVID-19 SOFIAOrdered By: Juve Morris on 11-16-2021 SARS-CoV+SARS-CoV-2 (COVID-19) Ag IA.rapid Ql (Resp) Negative Negative [facility] Comment on above: This is a duplicate Teresa SARS Antigen (DEMETRIUS) result to be used for statistical tracking purpose only. No Panel InformationOrdered By: Augustin Morris on 11-16-2021 SARS Antigen (LFIA) [facility] Teresa Ag Negativeon 11-16-19 Teresa Ag Negative Negative Normal Negative [facility] Comment on above: Result Comment: This is a duplicate Teresa SARS Antigen (DEMETRIUS) result to be used for statistical tracking purpose only. PERFORMED BY: [place] [address] PATHOLOGIST DENTURE WAXER BORIS ELIZABETH M.D. Performed By: #### C OVID-19 TERESA, SOFIANEG #### [address] Vital Signs Date Time Vital Sign Value Performing Clinician Faci lity 02-07-2022 20:47-0400 Body height 161.29 cm MD Joe Rosenberg Work Phone: [facility] 02-07-2022 20:47-0400 Body mass index (BMI) [Percentile] Per age and sex 79.7 % MD Joe Rosenberg Work Phone: [facility] 02-07-2022 20:47-0400 Body mass index (BMI) [Ratio] 24.7 kg/m2 MD Joe Rosenberg Work Phone: [facility] 02-07-2022 20:47-0400 Body weight 64.41 kg MD Joe Rosenberg Work Phone: [facility] 02-07-2022 20:46-0400 Body temperature 98.6 [degF] MD Joe Rosenberg Work Phone: [facility] 02-07-2022 20:46-0400 Diastolic blood pressure 84 mm[Hg] MD Joe Rosenberg Work Phone: [facility] 05-22-2022 20:46-0400 Heart rate 95 /min MD Joe Rosenberg Work Phone: [facility] 02-07-2022 20:46-0400 Respiratory rate 18 /min MD Joe Rosenberg Work Phone: [facility] 02-07-2022 20:46-0400 SaO2% (BldA) [Mass fraction] 100 % MD Joe Rosenberg Work Phone: [facility] 02-07-2022 20:46-0400 Systolic blood pressure 138 mm[Hg] MD Joe Rosenberg Work Phone: [facility] Encounters Encounter Date Encounter Type Care Provider Facility Start: 10-19-2023 End: 10-19-2023 ambulatory HUE FLORES Not Available Start: 08-24-2023 End: 08-24-2023 ambulatory HUE FLORES Not Available Start: 01-10-2023 End: 01-11-[address] JOE ROSENBERG . Facility:[facility] Start: 11-12-2022 End: 11-12-[address] HUE FLORES . Facility:[facility] Start: 11-05-2022 Encounter for other preprocedural examination DR HUE FLORES . [facility] Start: 11-01-2022 End: 11-02-[address] HUE FLORES . Facility:[facility] Start: 11-01-2022 End: 11-02-2022 Encounter for other preprocedural examination DR HUE FLORSE . Facility:[facility] Start: 10-19-2022 End: 10-20-[address] HUE FLORES . Facility:[facility] Start: 10-15-2022 End: 10-16-[address] HUE FLORES . Facility:[facility] Start: 10-06-2022 End: 10-07-[address] HUE FLORES . Facility:[facility] Start: 05-04-2022 End: 05-04-[address] REBECCA GIBBS . Facility:[facility] Start: 02-07-2022 End: 02-07-2022 Emergency department patient visit MD Joe Rosenberg Work Phone: [facility] Start: 11-16-2021 End: 11-16-2021 Patient encounter procedure MD Joe Rosenberg Work Phone: [facility] Swab Procedures Date Procedure Procedure Detail Performing Clinician Start: 11-16-2021 SARS Antigen (LFIA) MD Joe Rosenberg Work Phone: Plan of Treatment Date Care Activity Detail Author Patient Education Abdominal Pain , Adult ED Gastritis ED [facility] Work Phone: Patient referral [facility] Work Phone: Payers Date Payer Category Payer Unknown [id number] 2.16.84 [id number] 2003 Unknown [id number] 2.16.84 [id number] 2003 Unknown [id number] 2.16.84 [id number] 2003 Unknown [id number] 2.16.84 [id number] 2003 Unknown [id number] 2.16.84 [id number] 2003 Unknown [id number] 2.16.84 [id number] 2003 Unknown [id number] 2.16.84 [id number] 2003 Unknown [id number] 2.16.84 [id number] 2003 Unknown [id number] 1961 Medicaid [id number] 9e [id number] Self-pay Self Pay [id number] Social History Date Type Detail Facility Start: 02-07-2022 Tobacco smoking stat [facility] Never smoked tobacco (finding) [facility] Start: 2005 Sex Assigned At Female [facility] Clinical Note 01-10-2023 Note Date & Type [...] authenticated by: JOY CARDOZA Date: 2023-01-10 11:58 [facility] Clinical Note 11-12-2022 Note Date & Type [...] cyst. ANESTHESIA: General. SURGEON: Hue Flores D.O. SUPERVISOR ADVICE: KATHY Max URINE OUTPUT: Yellow and clear. [...] regular diagnostic laparoscopy procedure only.) ? [facility] Clinical Note 11-12-2022 Note Date & [...] cyst. ANESTHESIA: General. SURGEON: Hue Flores D.O. SUPERVISOR ADVICE: KATHY Max URINE OUTPUT: Yellow and clear. [...] the regular diagnostic laparoscopy procedure only.) [facility] Evaluation note Note Date & Type Note Facility Evaluation note No assessment [facility] Work [facility]: Chief Complaint and Reason for [...] section and content) DATE CREATED AUTHOR 02/24/2022 [facility] DATE CREATED AUTHOR AUTHOR'S ORGANIZ ATION 01/11/2023 [facility] DATE CREATED AUTHOR AUTHOR'S ORGANIZ ATION 10/20/2023 [facility] EPIC FOR RECORDS PERTAINING [...] BE BASED ON THE PRIMARY CLINICAL RECORDS. [employer] [facility]. provides no warranty or guarantee of the accuracy or completeness of information in this document.
[2023-11-04] MEDS: LACTATED RINGER'S SOLUTION 1,000 ML 50 ML IV ×2 (09:17→12:55)
[2023-11-04 09:36] LABS: HCG Quantitative <1 mIU/mL
--- NOTE | 2023-11-04 13:23 | PC.NURSE ---
Patient states no pain just sleepy at this time.
[2023-11-04] MEDS: ONDANSETRON 4 MG RAPDIS TABLET SL (13:39)
--- NOTE | 2023-11-04 13:45 | P.ON_ITS ---
Brief Operative Note Date of procedure: 11/04/23 Pre-op diagnosis: pelvic pain, lt ovarian mass Post-op diagnosis: same as pre-op Procedure: NAME OF PROCEDURE: [diagnostic laparoscopy with lt ovarin cystectomy for removal of endometrioma] PROCEDURE: The patient was taken back to the Operating Room where she was placed in dorsal lithotomy position after given general anesthesia. The patient was prepped and draped in normal sterile fashion. A sponge stick was placed into the patient's vagina. Attention was turned to the patient's abdomen, where a small umbilical incision was made. The fascia was tented using Curt clamps and the fascia was entered sharply. Confirmation of intraabdominal placement of the 10 mm port was confirmed under direct visualization using a laparoscope. The patient's abdomen was then insufflated using CO2 gas with approximately 4 liters. A second port was placed left laterally, this was done under direct visualization with a 5 mm port. Survey of the patient's abdomen demonstrated normal liver and gallbladder. Survey of the patient's pelvic anatomy demonstrated normal appearing rt ovary and tube, lt tube was normal in appearance, lt ovarian endometrioma. normal appearing uterus. endometrial implants could be noted in posterior culdesac, no evidence of any pelvic disease was seen, normal appearing pelvic cavity. All instruments were removed from the patient's abdomen. The patient's abdomen was deinsufflated of CO2 gas. The patient tolerated the procedure well. Sponge stick was removed from the patient's vagina. The patient's infraumbilical fascia was closed using #0 Vicryl on a GI needle. The patient's skin was closed laterally and infraumbilically using 4-0 Vicryl. The patient tolerated the procedure well. Sponge, lap and needle counts were correct x 2. The patient was taken to [facility] very Room in stable condition. The ligasure apparatus was used to remove the lt ovarian cyst wall, excellent hemostasis noted Anesthesia: TITO Surgeon: Curtis Flores Electrical Experimental Mechanic: Coty Barahona Estimated blood loss (mL): 5 Pathology: other (lt cyst wall) Condition: stable Disposition: PACU Urinary Catheter Management Urinary Catheter Management Urethral: Cath placed during this visit: no
--- NOTE | 2023-11-04 14:16 | PC.NURSE ---
No further c/o nausea. Up to bathroom and voids clear yellow without difficulty. Peripad dry. Dressings x3 to abdomen dry and intact.
== END 2023-11-04 14:18 | disposition home or self-care (01) ==
LOC: SURGOUT 08:47
PROVIDERS: PCP Family Medicine; Visit Provider Obstetrics & Gynecology
PROC: (CPT 840; principal; 2023-11-04 10:20)
DX: R10.2 Pelvic and perineal pain (principal); N83.202 Unspecified ovarian cyst, left side; N80.122 Deep endometriosis of left ovary
CPT/HCPCS: 58662; 36415; 84702; 85025; 88305; J0131; J1100; J1885; J2250; J2405; J2704; J2710; J3010; Q0162

== ENCOUNTER 2024-11-21 15:18 | Outpatient (REF) | payer OTHER, SELFPAY ==
--- OUTSIDE RECORDS SUMMARY | 2024-11-21 15:39 | XMS_ITS | CCD ---
Author Organization [facility] Care Team Providers Care Stone Cutter Name Role Phone MD Joe Rosenberg Primary Care Provider [phone] MD Donta Stewart Attending Provider MD Severo Lea Emergency Provider INDERJIT ., DR SWANN Admitting Unavailable INDERJIT ., DR SWANN Attending Unavailable HOY ., DR DIAZ Primary Care Unavailable INDERJIT ., DR SWANN Admitting Unavailable INDERJIT ., DR SWANN Attending Unavailable HOY ., DR DIAZ Primary Care Unavailable INDERJIT ., DR SWANN Consulting Unavailable NUSRAT, ANEL Consulting Unavailable KINDRAMARKIE KLEIN Consulting Unavailable FILUTZE, LISA Consulting Unavailable KARASIK ., DR FERNANDEZ Admitting [...] ., DR SWANN Attending Unavailable REQUEST, DR ERASMO LISTED Primary Care Unavaila ble INDERJIT ., DR SWANN Consulting Unavailable ZIEBER, DR JOY Coronel Consulting Unavailable INDERJIT ., DR SWANN Admitting Unavailable INDERJIT ., DR SWANN Attending Unavailable HOY ., DR DIAZ Primary Care Unavailable INDERJIT ., DR SWANN Consulting Unavailable HOY ., DR DIAZ Admitting Unavailable HOY ., DR DIAZ Attending Unavailable HOY ., DR DIAZ Primary Care Unavailable HOY ., DR DIAZ Consulting Unavailable SONY, DR JOY Coronel Consulting Unavailable Joe Rosenberg MD Primary Care Provider [phone] MD Joe Rosenberg Primary Care Provider [phone] Hue Flores Attending Provider Warchol, GINSENG FARMER-C Melia Primary Care Provider Warchol, GINSENG FARMER-C Melia Attending Provider [phone] Sanjay GUEVARA, Jigar Triana Primary Care Provider Warchol GINSENG FARMER, Melia Unavailable Lamylene GINSENG FARMER, Lisa R Unavailable Warchol GINSENG FARMER-C, Melia Primary Care Provider Warchol GINSENG FARMER-C, Melia Attending Provider [phone] López Coburn MD Emergency Provider Joe Rosenberg Primary Care Unavailable Hue Flores Admitting Unavailable Hue Flores Attending Unavailable Warchol, Melia Admitting Unavailable Warchol, Melia Primary Care Unavailable Warchol, Melia Attending Unavailable Warchol, Melia Admitting Unavailable Warchol, Melia Primary Care Unavailable Warchol, Melia Attending Unavailable Warchol, Melia Primary Care Unavailable López Coburn Jr Admitting Unavailable López Coburn Jr Attending Unavailable TARIQ, MELIA Attending Unavailable TARIQ, MELIA Referring Unavailable TARIQ, MELIA Attending Unavailable WARCHOL, MELIA Attending Unavailable WARCHOL, MELIA Attending Unavailable WARCHOL, MELIA Attending Unavailable Warchol GINSENG FARMER, Melia Unavailable Medications Current Medications Medication Drug Class(es) Dates Sig (Normalized) Sig (Original) dicyclomine hydrochloride 10 mg oral capsule (1 source) Anticholinergic Start: 10-17-2024 take 1 capsule by mouth three times daily as needed Dicyclomine 10 mg capsule Active 10 MG PO Three times daily as needed for abdominal discomfort October 17, 2024 12:00am gabapentin 100 mg oral capsule (14 sources) Anti-epileptic Agent Start: 10-17-2024 take 3 capsules by mouth three times daily Gabapentin 100 mg capsule Active 300 MG PO Three times daily October 17, 2024 12:00am Start: 08-28-2024 End: 12-23-2024 take 1 capsule by mouth in the morning, then take 1 capsule by mouth in the evening, then take 1 capsule by mouth at bedtime gabapentin (Neurontin) 300 MG capsule Indications: Bilateral sacroiliitis (CMS/HCC) , Chronic midline low back pain with bilateral sciatica Take 1 capsule (300 mg) by mouth in the morning and 1 capsule (300 mg) in the evening and 1 capsule (300 mg) before bedtime. 90 capsule 2 09/24/2024 12/23/2024 Active Start: 07-27-2024 End: 08-28-2024 take 1 capsule by mouth in the morning, then take 1 capsule by mouth in the evening, then take 1 capsule by mouth at bedtime gabapentin (Neurontin) 100 MG capsule Indications: Bilateral sacroiliitis (CMS/HCC) , Chronic midline low back pain with bilateral sciatica Take 1 capsule (100 mg) by mouth in the morning and 1 capsule (100 mg) in the evening and 1 capsule (100 mg) before bedtime. 90 capsule 07/27/2024 08/28/2024 Discontinued (Reorder) ondansetron 4 mg disintegrating oral tablet (1 source) Serotonin-3 Receptor Antagonist Start: 10-17-2024 take 1 tablet by mouth every eight hours as needed for nausea and vomiting Ondansetron 4 mg tablet,disintegrating Active 4 MG PO Q8H as needed for nausea and vomiting October 17, 2024 12:00am predniSONE 20 mg oral tablet (5 sources) Start: 06-18-2024 End: 07-27-2024 predniSONE (Deltasone) 20 MG tablet Indications: Left lumbar radiculopathy , 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-sided sciatica Take two tablets (40 mg) daily for five days, then take one tablet (20 mg) daily for five days. Take with food. 15 tablet 06/18/2024 07/27/2024 Discontinued (Therapy completed) Completed/Discontinued Medications Medication Drug Class(es) Dates Sig (Normalized) Sig (Original) acetaminophen 325 mg / HYDROcodone bitartrate 5 mg oral tablet (3 sources) Opioid Agonist Start: 11-04-2023 End: 06-18-2024 HYDROcodone-acetam inophen ([place]) 5-325 MG tablet 11/04/2023 06/18/2024 Discontinued (Therapy completed) diclofenac sodium 75 mg delayed release oral tablet (4 sources) Nonsteroidal Anti-inflammatory Drug Start: 12-16-2022 End: 06-18-2024 take 1 tablet by mouth in the morning diclofenac (Voltaren) 75 MG EC tablet Take 75 mg by mouth in the morning and 75 mg before bedtime. 12/16/2022 06/18/2024 Discontinued (Therapy completed) ibuprofen 800 mg oral tablet (4 sources) Nonsteroidal Anti-inflammatory Drug Start: 11-12-2022 End: 06-18-2024 take 1 tablet by mouth every eight hours as needed ibuprofen 800 MG tablet TAKE 1 TABLET BY MOUTH EVERY 8 HOURS NEEDED WITH FOOD 11/12/2022 06/18/2024 Discontinued (Therapy completed) pantoprazole 20 mg delayed release oral tablet (5 sources) Proton Pump Inhibitor Start: 02-07-2022 End: 10-17-2024 take 1 tablet by mouth once daily Pantoprazole (Protonix) 20 mg Tablet,Delayed Release (Dr/Ec) Discontinued 20 MG PO Daily February 06, 2022 11:00pm October 17, 2024 7:52pm promethazine hydrochloride 25 mg oral tablet (5 sources) Phenothiazine Start: 02-07-2022 End: 10-17-2024 take 1 tablet by mouth every six hours as needed for nausea Promethazine 25 mg Tablet Discontinued 25 MG PO Q6H as needed for Nausea February 06, 2022 11:00pm October 17, 2024 7:52pm triamcinolone acetonide 1 mg/ml topical cream (4 sources) Corticosteroid Start: 12-16-2022 End: 06-18-2024 triamcinolone (Kenalog) 0.1 % cream APPLY SMALL AMOUNT TO SKIN TWICE A DAY 12/16/2022 06/18/2024 Discontinued (Therapy completed) Problems Active Problems Problem Classification Problem Date Documented Date Episodic/Chronic Abdominal pain (12 sources) Abdominal pain; Translations: [Unspecified abdominal pain] Onset: 11-12-2022 02-07-2022 Episodic Comment on above: Problem List clean-u p per request of Phys. EHR Cmte Endometriosis (1 source) Endometriosis; Translations: [ENDOMETRIOSIS BILAT OVARY UNS DEPTH] Onset: 11-24-2022 Gastritis and duodenitis (5 sources) Gastritis; Translations: [Gastritis, unspecified, without bleeding] 02-07-2022 Episodic Comment on above: Problem List clean-u p per request of Phys. EHR Cmte Menstrual disorders (1 source) Irregular menstruation, unspecified; Translations: [IRREGULAR MENSTRUATION UNSPECIFIED] Onset: 11-05-2022 Chronic Nausea and vomiting (2 sources) Nausea, vomiting and diarrhea; Translations: [Nausea with vomiting, unspecified] Onset: 10-17-2024 10-17-2024 Episodic Other and unspecified benign neoplasm (4 sources) Benign neoplasm of left ovary; Translations: [BENIGN NEOPLASM OF LEFT OVARY] Onset: 10-19-2022 Episodic Other connective tissue disease (2 sources) Cramp; Translations: [Cramp and spasm] 06-18-2024 Episodic Other endocrine disorders (5 sources) Polycystic ovarian syndrome; Translations: [POLYCYSTIC OVARIAN SYNDROME] Onset: 10-15-2022 Chronic Other female genital disorders (1 source) Noninflammatory disorder of ovary, fallopian tube and broad ligament, unspecified; Translations: [OTH NONINFL D/O OVARY TUBE AND BRD LIG] Onset: 10-19-2022 Episodic Other nervous system disorders (1 source) Other chronic pain; Translations: [Other chronic pain] Onset: 07-25-2024 Chronic Ovarian cyst (4 sources) Cyst of left ovary; Translations: [Unspecified ovarian cyst, left side] 10-22-2024 Episodic Spondylosis; intervertebral disc disorders; other back problems (11 sources) Bilateral inflammation of sacroiliac joint; Translations: [Sacroiliitis, not elsewhere classified] Onset: 08-23-2024 07-27-2024 Chronic Spondylosis; intervertebral disc disorders; other back problems (20 sources) Chronic low back pain; Translations: [Lumbago with sciatica, right side] Onset: 07-25-2024 07-27-2024 Episodic Unclassified (2 sources) Finding of sensation of abdomen 10-22-2024 Past or Other Problems Problem Classification Problem Date Documented Da te Episodic/Chronic Administrative/social admission (18 sources) Patient encounter status; Translations: [Other specified counseling] Onset: 10-03-2023 10-03-2023 Episodic Other connective tissue disease (1 source) Cramp and spasm; Translations: [Cramp and spasm] Onset: 07-25-2024 Episodic Other screening for suspected conditions (not mental disorders or infectious disease) (4 sources) Encounter for screening for malignant neoplasm of cervix; Translations: [ENC SCREENING MALIG NEOPLASM CERV] Onset: 05-04-2022 Episodic Results Test Name Value Interpretation Reference Range Facility US PELVIC COMPLETE W/ TVon 0 11-06-2024 US PELVIC COMPLETE W/ TV EXAM: US PELVIC COMPLETE W/ TV HISTORY: Left ovarian cyst, abdominal cramping, infertility. COMPARISON: Pelvic ultrasound 10/15/2022 - Report only. TECHNIQUE: Two-dimensional transabdominal grayscale ultrasound imaging of the pelvis was performed. Color flow Doppler imaging of the ovaries were also performed. Transvaginal was performed. FINDINGS: UTERUS 8.7 x 3.9 x 5.4 cm The uterus is anteverted in position and demonstrates a normal, homogeneous echotexture. ENDOMETRIUM 1.3 cm The endometrium demonstrates a normal, homogeneous echotexture. RIGHT OVARY 5.1 x 1.9 x 3.7 cm The right ovary demonstrates a normal echotexture with multiple follicles. The ovarian volume is 19 mL. There is normal color Doppler flow. LEFT OVARY 6.0 x 4.2 x 7.7 cm The left ovary demonstrates a normal echotexture with multiple follicles. There is normal color Doppler flow. There is a 3.3 cm complex cyst visualized. There is a 3.9 cm hypoechoic lesion visualized. No internal vascularity was demonstrated. No fluid is present within the cul-de-sac. IMPRESSION: 1. Multiple ovarian follicles and increased ovarian volumes. This is suggestive of polycystic ovarian syndrome, but is most likely within normal limits for patient's age. 2. Avascular, hypoechoic left ovarian lesion. This most likely represents a complex/dermoid cyst. 6-12 week follow-up recommended to assess for stability and/or resolution. Pelvic MRI otherwise recommended. 3. Complex left ovarian cyst. A follow-up ultrasound in 6-12 weeks is recommended to monitor for resolution. 4. Normal color Doppler flow within the bilateral ovaries. Electronically Signed:Electronically signed by BRYN FOX II, MD, PHD at 07-Nov-2024 08:03:54 AM [facility] Normal Not Available Comment on above: Order Comment: US PE LVIS-TRANSVAG IF INDICATED No LMP recorded. HCG ( test) Ql (U)o n 10-22-2024 Interpretation and review of laboratory results Normal [facility] Preg Test, Ur Negative Negative [facility] Alanine aminotransferase [En zymatic activity/volume] in Serum or PlasmaOrdered By: López Coburn on 10-17-2024 ALT [Catalytic activity/Vol] Alanine aminotransferase [Enzymatic activity/volume] in Serum or Plasma 7-52 [facility] Albumin [Mass/volume] in Ser um or Plasma by Bromocresol green (BCG) dye binding methoOrdered By: López Coburn on 10-17-2024 Albumin BCG dye [Mass/Vol] Albumin [Mass/volume] in Serum or Plasma by Bromocresol green (BCG) dye binding metho 3.5-5.7 [facility] Alkaline phosphatase [Enzyma tic activity/volume] in Serum or PlasmaOrdered By: López Coburn on 10-17-2024 ALP [Catalytic activity/Vol] Alkaline phosphatase [Enzymatic activity/volume] in Serum or Plasma 34-104 [facility] Appearance of UrineOrdered B y: López Coburn on 10-17-2024 Appearance (U) Urine appearance Abnormal Clear [facility] Aspartate aminotransferase [ Enzymatic activity/volume] in Serum or PlasmaOrdered By: López Coburn on 10-17-2024 AST [Catalytic activity/Vol] Aspartate aminotransferase [Enzymatic activity/volume] in Serum or Plasma 13-39 [facility] Bacteria [Presence] in Urine by AutomatedOrdered By: López Coburn on 10-17-2024 Bacteria Auto Ql (U) Bacteria [Presence] in Urine by Automated None Seen [facility] Basophils Auto (Bld) [#/Vol] Ordered By: Lóepz Cobrun on 10-17-2024 Basophils (Bld) [#/Vol] Automated basophil count 0.0-0.2 [facility] Basophils/100 WBC Auto (Bld) Ordered By: López Coburn on 10-17-2024 Basophils/100 WBC (Bld) Automated basophil % . [facility] Bilirubin Test strip Ql (U)O rdered By: López Coburn on 10-17-2024 Bilirubin Ql (U) Bilirubin.total [Presence] in Urine by Test strip Negative [facility] Bilirubin.total [Mass/volume ] in Serum or PlasmaOrdered By: López Coburn on 10-17-2024 Bilirubin [Mass/Vol] Bilirubin.total [Mass/volume] in Serum or Plasma 0.3-1.0 [facility] Calcium [Mass/volume] in Ser um or PlasmaOrdered By: López Coburn on 10-17-2024 Calcium [Mass/Vol] Calcium [Mass/volume ] in Serum or Plasma High 8.6-10.3 [facility] Carbon dioxide, total [Moles /volume] in Serum or PlasmaOrdered By: López Coburn on 10-17-2024 CO2 [Moles/Vol] Carbon dioxide, tota l [Moles/volume] in Serum or Plasma 21.0-31.0 [facility] Chloride [Moles/volume] in [place] or PlasmaOrdered By: López Coburn on 10-17-2024 Chloride [Moles/Vol] Chloride [Moles/vol ume] in Serum or Plasma 98-107 [facility] Color Auto (U)Ordered By: Vidal Coburn on 10-17-2024 Color (U) Color of Urine by Auto Yellow [facility] Blood Count Auto Di ffon 10-17-2024 Basophils (Bld) [#/Vol] 0.0 10*3/uL Normal 0.0-0.2 [facility] Comment on above: Result Comment: PERF ORMED BY: [place] [address] PATHOLOGIST FIRE ALARM INSPECTOR AMY CALLAHAN M.D. Performed By: #### C BC, CMP #### [address] Basophils/100 WBC (Bld) 0.3 % Normal . T pete [facility] Comment on above: Performed By: #### C BC, CMP #### [address] Eosinophils (Bld) [#/Vol] 0.0 10*3/uL Normal 0.0-0.45 [facility] Comment on above: Performed By: #### C BC, CMP #### [address] Eosinophils/100 WBC (Bld) 0.1 % Normal . [facility] Comment on above: Performed By: #### C BC, CMP #### [address] Erythrocyte distribution width (RBC) [Ratio] 13.5 % Normal 11.9-15.3 [facility] Comment on above: Performed By: #### C BC, CMP #### [address] Hematocrit (Bld) [Volume fraction] 40.4 % Normal 34.0-46.4 [facility] Comment on above: Performed By: #### C BC, CMP #### [address] Hemoglobin (Bld) [Mass/Vol] 13.9 g/dL Normal 11.8-15.4 [facility] Comment on above: Performed By: #### C BC, CMP #### [address] Lymphocytes (Bld) [#/Vol] 1.4 10*3/uL Normal 1.00-4.8 [facility] Comment on above: Performed By: #### C BC, CMP #### [address] Lymphocytes/100 WBC (Bld) 20.3 % Normal . [facility] Comment on above: Performed By: #### C BC, CMP #### [address] MCH (RBC) [Entitic mass] 29.1 pg Normal 24.7-34.3 [facility] Comment on above: Performed By: #### C BC, CMP #### [address] MCV (RBC) [Entitic vol] 84.6 fL Normal 80-100 T he [facility] Comment on above: Performed By: #### C BC, CMP #### [address] Mean Corpuscular HGB Conc 34.4 g/dL Normal 32.0-35.0 [facility] Comment on above: Performed By: #### C BC, CMP #### [address] Monocytes (Bld) [#/Vol] 0.7 10*3/uL Normal 0.0-0.8 [facility] Comment on above: Performed By: #### C BC, CMP #### [facility] [address] Monocytes/100 WBC (Bld) 17.74 % Normal 0.00-20.00 [facility] Comment on above: Performed By: #### C BC, CMP #### [facility] [address] Monocytes/100 WBC (Bld) 9.6 % Normal . [facility] Comment on above: Performed By: #### C BC, CMP #### [address] Neutrophils (Bld) [#/Vol] 4.8 10*3/uL Normal 1.8-7.7 [facility] Comment on above: Performed By: #### C BC, CMP #### [address] Neutrophils/100 WBC (Bld) 69.7 % Normal . [facility] Comment on above: Performed By: #### C BC, CMP #### [place] [address] [place] NRBC% 0.1 /100{WBC} Normal 0-0.5 [facility] Comment on above: Performed By: #### C BC, CMP #### [place] [address] [place] Platelet mean volume (Bld) [Entitic vol] 8.0 fL Normal 6.3-10.7 [facility] Comment on above: Performed By: #### C BC, CMP #### [place] [address] [place] Platelets (Bld) [#/Vol] 253 10*3/uL Normal 150-450 [facility] Comment on above: Performed By: #### C BC, CMP #### [place] [address] [place] RBC (Bld) [#/Vol] 4.77 10*6/uL Normal 3.60-5.00 [facility] Comment on above: Performed By: #### C BC, CMP #### [address] WBC (Bld) [#/Vol] 7.0 10*3/uL Normal 3.8-11.6 [facility] Comment on above: Performed By: #### C BC, CMP #### [address] Comprehensive Metabolic Pane omega 10-17-2024 Albumin [Mass/Vol] 4.7 g/dL Normal 3.5-5.7 [facility] Comment on above: Performed By: #### C BC, CMP #### [address] Albumin/Globulin [Mass ratio] 1.7 {ratio} Normal [facility] Comment on above: Performed By: #### C BC, CMP #### [address] ALP [Catalytic activity/Vol] 44 U/L Normal 34-104 [facility] Comment on above: Performed By: #### C BC, CMP #### [address] ALT [Catalytic activity/Vol] 10 U/L Normal 7-52 [facility] Comment on above: Performed By: #### C BC, CMP #### [address] Anion gap [Moles/Vol] 14.7 mmol/L Normal 6.0-15.0 Th e [facility] Comment on above: Performed By: #### C BC, CMP #### [address] AST [Catalytic activity/Vol] 13 U/L Normal 13-39 [facility] Comment on above: Performed By: #### C BC, CMP #### [address] Bilirubin [Mass/Vol] 0.4 mg/dL Normal 0.3-1.0 [facility] Comment on above: Performed By: #### C BC, CMP #### [address] Calcium [Mass/Vol] 10.4 mg/dL High 8.6-10.3 [facility] Comment on above: Performed By: #### C BC, CMP #### [facility] [address] Chloride [Moles/Vol] 106 mmol/L Normal 98-107 [facility] Comment on above: Performed By: #### C BC, CMP #### [facility] [address] CO2 [Moles/Vol] 23.3 mmol/L Normal 21.0-31.0 [facility] Comment on above: Performed By: #### C BC, CMP #### [address] Creatinine [Mass/Vol] 0.77 mg/dL Normal 0.60-1.20 [facility] Comment on above: Performed By: #### C BC, CMP #### [address] Creatinine Clr Calc Pharmacy 109.29 Normal [facility] Comment on above: Result Comment: PERF ORMED BY: [place] [address] PATHOLOGIST FIRE ALARM INSPECTOR AMY CALLAHAN M.D. Performed By: #### C BC, CMP #### [address] GFR/1.73 sq M.predicted MDRD (S/P/Bld) [Vol rate/Area] mL/min/{1.73_m2} Normal [facility] Comment on above: Performed By: #### C BC, CMP #### [address] Globulin (S) [Mass/Vol] 2.7 g/dL Normal T he [facility] Comment on above: Performed By: #### C BC, CMP #### [address] Glucose [Mass/Vol] 89 mg/dL Normal 70-100 [facility] Comment on above: Result Comment: [facility] Glucose Reference Range is dependent on time and content of last meal. Glucose of more than 200 mg/dL in a nonstressed, ambulatory subject supports the diagnosis of Diabetes Mellitus. ADA recommended reference range Performed By: #### C BC, CMP #### [address] Potassium [Moles/Vol] 4.0 mmol/L Normal 3.5-5.1 [facility] Comment on above: Performed By: #### C BC, CMP #### [address] Protein [Mass/Vol] 7.4 g/dL Normal 6.4-8.9 [facility] Comment on above: Performed By: #### C BC, CMP #### [address] Sodium [Moles/Vol] 140 mmol/L Normal 136-145 [facility] Comment on above: Performed By: #### C BC, CMP #### [place] [address] [place] Urea nitrogen [Mass/Vol] 15 mg/dL Normal 7-25 [facility] Comment on above: Performed By: #### C BC, CMP #### [place] [address] [place] Creatinine [Mass/volume] in Serum or PlasmaOrdered By: López Coburn on 10-17-2024 Creatinine [Mass/Vol] Creatinine [Mass/v olume] in Serum or Plasma 0.60-1.20 [facility] Dipstick and Microscopicon 0 10-17-2024 Appearance (U) Cloudy Critically abnormal Clear [facility] Comment on above: Order Comment: Name Collection Type:: Clean-Voided Midstream Performed By: #### U HCG, ADDONUAPLUS #### [place] [address] [place] Bacteria,Urine Rare Normal None Seen [facility] Comment on above: Order Comment: Name Collection Type:: Clean-Voided Midstream Performed By: #### U HCG, ADDONUAPLUS #### [facility] [address] [place] [address] Bilirubin,Urine Negative Normal Negative [facility] Comment on above: Order Comment: Name Collection Type:: Clean-Voided Midstream Performed By: #### U HCG, ADDONUAPLUS #### [facility] [address] [place] [address] [place] Color (U) Yellow Normal Yellow [facility] Comment on above: Order Comment: Name Collection Type:: Clean-Voided Midstream Performed By: #### U HCG, ADDONUAPLUS #### [address] Glucose Ql (U) Normal Normal Normal [facility] Comment on above: Order Comment: Name Collection Type:: Clean-Voided Midstream Performed By: #### U HCG, ADDONUAPLUS #### [place] [address] [place] Hyaline Casts,Urine 9 [LPF] High 0-8 [facility] Comment on above: Order Comment: Name Collection Type:: Clean-Voided Midstream Performed By: #### U HCG, ADDONUAPLUS #### [address] Ketones Ql (U) 2+ High Negative [facility] Comment on above: Order Comment: Name Collection Type:: Clean-Voided Midstream Performed By: #### U HCG, ADDONUAPLUS #### [address] Leukocyte esterase Test strip Ql (U) Negative Normal Negative [facility] Comment on above: Order Comment: Name Collection Type:: Clean-Voided Midstream Performed By: #### U HCG, ADDONUAPLUS #### [address] Mucus,Urine 4+ Critically abnormal [facility] Comment on above: Order Comment: Name Collection Type:: Clean-Voided Midstream Performed By: #### U HCG, ADDONUAPLUS #### [place] [address] [place] Nitrite,Urine Negative Normal Negative [facility] Comment on above: Order Comment: Name Collection Type:: Clean-Voided Midstream Performed By: #### U HCG, ADDONUAPLUS #### [address] Occult Blood,Urine Negative Normal Negative [facility] Comment on above: Order Comment: Name Collection Type:: Clean-Voided Midstream Performed By: #### U HCG, ADDONUAPLUS #### [address] pH (U) 6.0 [pH] Normal 5.0-9.0 [facility] Comment on above: Order Comment: Name Collection Type:: Clean-Voided Midstream Performed By: #### U HCG, ADDONUAPLUS #### [address] Protein (U) [Mass/Vol] 30 mg/dL High Negative [facility] Comment on above: Order Comment: Name Collection Type:: Clean-Voided Midstream Performed By: #### U HCG, ADDONUAPLUS #### [address] RBC,Urine 1 [HPF] Normal 0-4 [facility] Comment on above: Order Comment: Name Collection Type:: Clean-Voided Midstream Performed By: #### U HCG, ADDONUAPLUS #### [address] Specificy [place],Urine 1.039 High 1.00 1-1.03 0 [facility] Comment on above: Order Comment: Name Collection Type:: Clean-Voided Midstream Performed By: #### U HCG, ADDONUAPLUS #### [place] [address] [place] Squamous Epithelial Cell,Urine 10 [HPF] High 0-2 [facility] Comment on above: Order Comment: Name Collection Type:: Clean-Voided Midstream Performed By: #### U HCG, ADDONUAPLUS #### [address] [place] [address] [place] Urobilinogen,Urine 2 mg/dL High Normal [facility] Comment on above: Order Comment: Name Collection Type:: Clean-Voided Midstream Performed By: #### U HCG, ADDONUAPLUS #### [facility] [address] WBC,Urine 3 [HPF] Normal 0-4 [facility] Comment on above: Order Comment: Name Collection Type:: Clean-Voided Midstream Performed By: #### U HCG, ADDONUAPLUS #### [facility] [address] Eosinophils Auto (Bld) [#/Vo l]Ordered By: López Coburn on 10-17-2024 Eosinophils (Bld) [#/Vol] Automated eosinophil count 0.0-0.45 [facility] Eosinophils/100 WBC Auto (Bl d)Ordered By: López Coburn on 10-17-2024 Eosinophils/100 WBC (Bld) Automated eosinophil % . [facility] Epithelial cells.squamous [# /area] in Urine sediment by Automated countOrdered By: López Coburn on 10-17-2024 Epithelial cells.squamous Auto (Urine sed) [#/Area] Epithelial cells.squamous [#/area] in Urine sediment by Automated count High 0-2 [facility] Erythrocyte distribution wid th Auto (RBC) [Ratio]Ordered By: López Coburn on 10-17-2024 Erythrocyte distribution width (RBC) [Ratio] Erythrocyte distribution width [Ratio] by Automated count 11.9-15.3 [facility] Erythrocytes [#/area] in Uri ne sediment by Automated countOrdered By: López Coburn on 10-17-2024 RBC Auto (Urine sed) [#/Area] Erythrocytes [#/area] in Urine sediment by Automated count 0-4 [facility] Globulin Calc (S) [Mass/Vol] Ordered By: López Coburn on 10-17-2024 Globulin (S) [Mass/Vol] Serum globulin measurement by calculation (mass/volume) [facility] Glucose [Mass/volume] in Ser um or PlasmaOrdered By: López Coburn on 10-17-2024 Glucose [Mass/Vol] Glucose [Mass/volume ] in Serum or Plasma 70-100 [facility] Comment on above: ADA recommended refe rence rangeRandom Glucose Reference Range is dependent on time and content of last meal. Glucose of more than 200 mg/dL in a nonstressed, ambulatory subject supports the diagnosis of Diabetes Mellitus. Glucose [Mass/volume] in Uri ne by Test stripOrdered By: López Coburn on 10-17-2024 Glucose Test strip (U) [Mass/Vol] Glucose [Mass/volume] in Urine by Test strip Normal [facility] HCG ( test) IA.rapi d Ql (U)Ordered By: López Coburn on 10-17-2024 HCG ( test) Ql (U) Urine human chorionic gonadotropin (hCG) detection by immunoassay [facility] HCG,Urineon 10-17-2024 Beta HCG ( test) Ql (U) Negative Normal [facility] Comment on above: Order Comment: Name Collection Type:: Clean-Voided Midstream Result Comment: PERF ORMED BY: [place] [address] PATHOLOGIST FIRE ALARM INSPECTOR AMY CALLAHAN M.D. Performed By: #### U HCG, ADDONUAPLUS #### [address] Hematocrit Auto (Bld) [Volum e fraction]Ordered By: López Coburn on 10-17-2024 Hematocrit (Bld) [Volume fraction] Hematocrit [Volume Fraction] of Blood by Automated count 34.0-46.4 [facility] Hemoglobin Test strip Ql (U) Ordered By: López Coburn on 10-17-2024 Hemoglobin Ql (U) Hemoglobin [Presence ] in Urine by Test strip Negative [facility] Hemoglobin [Mass/volume] in BloodOrdered By: López Coburn on 10-17-2024 Hemoglobin (Bld) [Mass/Vol] Hemoglobin [Mass/volume] in Blood 11.8-15.4 [facility] Hyaline casts [#/area] in Ur ine sediment by Automated countOrdered By: López Coburn on 10-17-2024 Hyaline casts Auto (Urine sed) [#/Area] Hyaline casts [#/area] in Urine sediment by Automated count High 0-8 [facility] Ketones Test strip Ql (U)Ord ered By: López Coburn on 10-17-2024 Ketones Ql (U) Ketones [Presence] i n Urine by Test strip High Negative [facility] Leukocyte esterase [Presence ] in Urine by Test stripOrdered By: López Coburn on 10-17-2024 Leukocyte esterase Test strip Ql (U) Leukocyte esterase [Presence] in Urine by Test strip Negative [facility] Leukocytes [#/area] in Urine sediment by Automated countOrdered By: López Cbourn on 10-17-2024 WBC Auto (Urine sed) [#/Area] Leukocytes [#/area] in Urine sediment by Automated count 0-4 [facility] Leukocytes [#/volume] correc nicole for nucleated erythrocytes in Blood by Automated counOrdered By: López Coburn on 10-17-2024 WBC corrected for nucl RBC Auto (Bld) [#/Vol] Leukocytes [#/volume] corrected for nucleated erythrocytes in Blood by Automated coun 3.8-11.6 [facility] Lymphocytes Auto (Bld) [#/Vo l]Ordered By: López Coburn on 10-17-2024 Lymphocytes (Bld) [#/Vol] Lymphocytes [#/volume] in Blood by Automated count 1.00-4.8 [facility] Lymphocytes/100 WBC Auto (Bl d)Ordered By: López Coburn on 10-17-2024 Lymphocytes/100 WBC (Bld) Lymphocytes/100 leukocytes in Blood by Automated count . [facility] MCH Auto (RBC) [Entitic mass ]Ordered By: López Coburn on 10-17-2024 MCH (RBC) [Entitic mass] MCH [Entitic ma ss] by Automated count 24.7-34.3 [facility] MCHC Auto (RBC) [Mass/Vol]Or dered By: López Coburn on 10-17-2024 MCHC (RBC) [Mass/Vol] MCHC [Mass/volume] by Automated count 32.0-35.0 [facility] MCV Auto (RBC) [Entitic vol] Ordered By: López Coburn on 10-17-2024 MCV (RBC) [Entitic vol] MCV [Entitic vol ume] by Automated count 80-100 [facility] Monocyte distribution width [Entitic volume] in Blood by AutomatedOrdered By: López Coburn on 10-17-2024 Monocyte distribution width Auto (Bld) [Entitic vol] Monocyte distribution width [Entitic volume] in Blood by Automated 0.00-20.00 [facility] Monocytes Auto (Bld) [#/Vol] Ordered By: López Coburn on 10-17-2024 Monocytes (Bld) [#/Vol] Automated blood monocyte count 0.0-0.8 [facility] Monocytes/100 WBC Auto (Bld) Ordered By: López Coburn on 10-17-2024 Monocytes/100 WBC (Bld) Automated monocyte % . [facility] Mucus [Presence] in Urine by AutomatedOrdered By: López Coburn on 10-17-2024 Mucus Auto Ql (U) Mucus [Presence] in Urine by Automated Abnormal [facility] Neutrophils Auto (Bld) [#/Vo l]Ordered By: López Coburn on 10-17-2024 Neutrophils (Bld) [#/Vol] Neutrophils [#/volume] in Blood by Automated count 1.8-7.7 [facility] Neutrophils/100 WBC Auto (Bl d)Ordered By: López Coburn on 10-17-2024 Neutrophils/100 WBC (Bld) Automated neutrophil % . [facility] Nitrite Test strip Ql (U)Ord ered By: López Coburn on 10-17-2024 Nitrite Ql (U) Nitrite [Presence] i n Urine by Test strip Negative [facility] No Panel InformationOrdered By: López Coburn on 10-17-2024 Estimated GFR (CKD-EPI) > 60.0 mL/Min [facility] Creatinine Clearance (Chem 109.29 [facility] Nucleated erythrocytes [Pres ence] in Blood by Automated countOrdered By: López Coburn on 10-17-2024 Nucleated RBC Auto Ql (Bld) Nucleated erythrocytes [Presence] in Blood by Automated count 0-0.5 [facility] Platelet mean volume Auto (B ld) [Entitic vol]Ordered By: López Coburn on 10-17-2024 Platelet mean volume (Bld) [Entitic vol] Platelet mean volume [Entitic volume] in Blood by Automated count 6.3-10.7 [facility] Platelets Auto (Bld) [#/Vol] Ordered By: López Coburn on 10-17-2024 Platelets (Bld) [#/Vol] Platelets [#/vol ume] in Blood by Automated count 150-450 [facility] Potassium [Moles/volume] in Serum or PlasmaOrdered By: López Coburn on 10-17-2024 Potassium [Moles/Vol] Potassium [Moles/v olume] in Serum or Plasma 3.5-5.1 [facility] Protein Test strip (U) [Mass /Vol]Ordered By: López Coburn on 10-17-2024 Protein (U) [Mass/Vol] Protein [Mass/vol ume] in Urine by Test strip High Negative [facility] Protein [Mass/volume] in Ser um or PlasmaOrdered By: López Coburn on 10-17-2024 Protein [Mass/Vol] Protein [Mass/volume ] in Serum or Plasma 6.4-8.9 [facility] RBC Auto (Bld) [#/Vol]Ordere d By: López Coburn on 10-17-2024 RBC (Bld) [#/Vol] Erythrocytes [#/volu me] in Blood by Automated count 3.60-5.00 [facility] Serum or plasma albumin/glob ulin mass ratioOrdered By: López Coburn on 10-17-2024 Albumin/Globulin [Mass ratio] Serum or plasma albumin/globulin mass ratio [facility] Serum or plasma anion gap de terminationOrdered By: López Coburn on 10-17-2024 Anion gap [Moles/Vol] Serum or plasma an ion gap determination 6.0-15.0 [facility] Sodium [Moles/volume] in Ser um or PlasmaOrdered By: López Coburn on 10-17-2024 Sodium [Moles/Vol] Sodium [Moles/volume ] in Serum or Plasma 136-145 [facility] Specific gravity Test strip (U) [Rel density]Ordered By: López Coburn on 10-17-2024 Specific gravity (U) [Rel density] Specific gravity of Urine by Test strip High 1.001-1.03 0 [facility] Urea nitrogen [Mass/volume] in Serum or PlasmaOrdered By: López Coburn on 10-17-2024 Urea nitrogen [Mass/Vol] Urea nitrogen [Mass/volume] in Serum or Plasma 7-25 [facility] Urobilinogen Test strip (U) [Mass/Vol]Ordered By: López Coburn on 10-17-2024 Urobilinogen (U) [Mass/Vol] Urobilinogen [Mass/volume] in Urine by Test strip High Normal [facility] WBC Auto (Bld) [#/Vol]Ordere d By: López Coburn on 10-17-2024 WBC (Bld) [#/Vol] Leukocytes [#/volume ] in Blood by Automated count 3.8-11.6 [facility] pH Test strip (U)Ordered By: López Coburn on 10-17-2024 pH (U) pH of Urine by Test strip 5.0-9.0 [facility] Alanine aminotransferase [En zymatic activity/volume] in Serum or PlasmaOrdered By: Melia Mantilla on 07-25-2024 ALT [Catalytic activity/Vol] 9 U/L Normal [facility] Comment on above: Performed By: #### C MP, MG #### [facility] [address] [place] [address] ALT [Catalytic activity/Vol] Alanine aminotransferase [Enzymatic activity/volume] in Serum or Plasma [facility] Albumin [Mass/volume] in Ser um or Plasma by Bromocresol green (BCG) dye binding methoOrdered By: Melia Mantilla on 07-25-2024 Albumin BCG dye [Mass/Vol] 4.4 g/dL 3.5-5.7 [facility] Albumin BCG dye [Mass/Vol] Albumin [Mass/volume] in Serum or Plasma by Bromocresol green (BCG) dye binding metho 3.5-5.7 [facility] Alkaline phosphatase [Enzyma tic activity/volume] in Serum or PlasmaOrdered By: Melia Mantilla on 07-25-2024 ALP [Catalytic activity/Vol] 42 U/L Normal [facility] Comment on above: Performed By: #### C MP, MG #### [facility] [address] [place] [address] ALP [Catalytic activity/Vol] Alkaline phosphatase [Enzymatic activity/volume] in Serum or Plasma [facility] Aspartate aminotransferase [ Enzymatic activity/volume] in Serum or PlasmaOrdered By: Melia Mantilla on 07-25-2024 AST [Catalytic activity/Vol] 10 U/L Low [facility] Comment on above: Performed By: #### C MP, MG #### [address] AST [Catalytic activity/Vol] Aspartate aminotransferase [Enzymatic activity/volume] in Serum or Plasma Low [facility] Automated basophil %Ordered By: Melia Mantilla on 07-25-2024 Basophils/100 WBC (Bld) 0.5 % Normal . [facility] Comment on above: Performed By: #### C BC #### [address] Automated basophil countOrde red By: Melia Mantilla on 07-25-2024 Basophils (Bld) [#/Vol] 0.0 10*3/uL Normal 0.0-0.2 [facility] Comment on above: Result Comment: PERF ORMED BY: [place] [address] PATHOLOGIST FIRE ALARM INSPECTOR BORIS ELIZABETH M.D. Performed By: #### C BC #### [address] Automated blood monocyte cou ntOrdered By: Melia Mantilla on 07-25-2024 Monocytes (Bld) [#/Vol] 0.5 10*3/uL Normal 0.0-0.8 [facility] Comment on above: Performed By: #### C BC #### [address] Automated eosinophil %Ordere d By: Melia Mantilla on 07-25-2024 Eosinophils/100 WBC (Bld) 0.7 % Normal . [facility] Comment on above: Performed By: #### C BC #### [address] Automated eosinophil countOr dered By: Melia Mantilla on 07-25-2024 Eosinophils (Bld) [#/Vol] 0.0 10*3/uL Normal 0.0-0.45 [facility] Comment on above: Performed By: #### C BC #### [facility] [address] Automated monocyte %Ordered By: Melia Mantilla on 07-25-2024 Monocytes/100 WBC (Bld) 7.2 % Normal . [facility] Comment on above: Performed By: #### C BC #### [address] Automated neutrophil %Ordere d By: Melia Mantilla on 07-25-2024 Neutrophils/100 WBC (Bld) 56.4 % Normal . [facility] Comment on above: Performed By: #### C BC #### [address] Basophils Auto (Bld) [#/Vol] Ordered By: Melia Mantilla on 07-25-2024 Basophils (Bld) [#/Vol] Automated basophil count 0.0-0.2 [facility] Basophils/100 WBC Auto (Bld) Ordered By: Melia Mantilla on 07-25-2024 Basophils/100 WBC (Bld) Automated basophil % . [facility] Bilirubin.total [Mass/volume ] in Serum or PlasmaOrdered By: Melia Matnilla on 07-25-2024 Bilirubin [Mass/Vol] 0.4 mg/dL Normal 0.3-1.0 [facility] Comment on above: Performed By: #### C MP, MG #### [address] Bilirubin [Mass/Vol] Bilirubin.total [Mass/volume] in Serum or Plasma 0.3-1.0 [facility] Calcium [Mass/volume] in Ser um or PlasmaOrdered By: Melia Mantilla on 07-25-2024 Calcium [Mass/Vol] 9.7 mg/dL Normal 8.6-10.3 [facility] Comment on above: Performed By: #### C MP, MG #### [address] Calcium [Mass/Vol] Calcium [Mass/volume ] in Serum or Plasma 8.6-10.3 [facility] Carbon dioxide, total [Moles /volume] in Serum or PlasmaOrdered By: Melia Mantilla on 07-25-2024 CO2 [Moles/Vol] 31.2 mmol/L High 21.0-31.0 [facility] Comment on above: Performed By: #### C MP, MG #### [facility] [address] CO2 [Moles/Vol] Carbon dioxide, tota l [Moles/volume] in Serum or Plasma High 21.0-31.0 [facility] Chloride [Moles/volume] in [place] or PlasmaOrdered By: Melia Mantilla on 07-25-2024 Chloride [Moles/Vol] 108 mmol/L High 98-107 [facility] Comment on above: Performed By: #### C MP, MG #### [address] Chloride [Moles/Vol] Chloride [Moles/vol ume] in Serum or Plasma High 98-107 [facility] Complete Blood Count Auto Di ffon 07-25-2024 Mean Corpuscular HGB Conc 33.8 g/dL Normal 32.0-35.0 [facility] Comment on above: Performed By: #### C BC #### [address] NRBC% 0.1 /100{WBC} Normal 0-0.5 [facility] Comment on above: Performed By: #### C BC #### [facility] [address] Comprehensive Metabolic Pane omega 07-25-2024 Albumin [Mass/Vol] 4.4 g/dL Normal 3.5-5.7 [facility] Comment on above: Performed By: #### C MP, MG #### [facility] [address] [place] [address] [place] GFR/1.73 sq M.predicted MDRD (S/P/Bld) [Vol rate/Area] mL/min/{1.73_m2} Normal [facility] Comment on above: Performed By: #### C MP, MG #### [facility] [address] Creatinine [Mass/volume] in Serum or PlasmaOrdered By: Melia Mantilla on 07-25-2024 Creatinine [Mass/Vol] 0.81 mg/dL Normal 0.60-1.20 [facility] Comment on above: Performed By: #### C MP, MG #### [facility] [address] [place] [address] Creatinine [Mass/Vol] Creatinine [Mass/v olume] in Serum or Plasma 0.60-1.20 [facility] Eosinophils Auto (Bld) [#/Vo l]Ordered By: Melia Mantilla on 07-25-2024 Eosinophils (Bld) [#/Vol] Automated eosinophil count 0.0-0.45 [facility] Eosinophils/100 WBC Auto (Bl d)Ordered By: Melia Mantilla on 07-25-2024 Eosinophils/100 WBC (Bld) Automated eosinophil % . [facility] Erythrocyte distribution wid th Auto (RBC) [Ratio]Ordered By: Melia Mantilla on 07-25-2024 Erythrocyte distribution width (RBC) [Ratio] Erythrocyte distribution width [Ratio] by Automated count 11.9-15.3 [facility] Erythrocyte distribution wid th [Ratio] by Automated countOrdered By: Melia Mantilla on 07-25-2024 Erythrocyte distribution width (RBC) [Ratio] 13.8 % Normal 11.9-15.3 [facility] Comment on above: Performed By: #### C BC #### [address] Erythrocytes [#/volume] in B lood by Automated countOrdered By: Melia Mantilla on 07-25-2024 RBC (Bld) [#/Vol] 4.85 10*6/uL Normal 3.60-5.[address] [facility] Comment on above: Performed By: #### C BC #### [address] Globulin Calc (S) [Mass/Vol] Ordered By: Melia Mantilla on 07-25-2024 Globulin (S) [Mass/Vol] Serum globulin measurement by calculation (mass/volume) [facility] Glucose [Mass/volume] in Ser um or PlasmaOrdered By: Melia Mantilla on 07-25-2024 Glucose [Mass/Vol] 91 mg/dL Normal 70-100 [facility] Comment on above: ADA recommended refe rence rangeRandom Glucose Reference Range is dependent on time and content of last meal. Glucose of more than 200 mg/dL in a nonstressed, ambulatory subject supports the diagnosis of Diabetes Mellitus. Result Comment: [place] om Glucose Reference Range is dependent on time and content of last meal. Glucose of more than 200 mg/dL in a nonstressed, ambulatory subject supports the diagnosis of Diabetes Mellitus. ADA recommended reference range Performed By: #### C MP, MG #### [address] Glucose [Mass/Vol] Glucose [Mass/volume ] in Serum or Plasma 70-100 [facility] Comment on above: ADA recommended refe rence rangeRandom Glucose Reference Range is dependent on time and content of last meal. Glucose of more than 200 mg/dL in a nonstressed, ambulatory subject supports the diagnosis of Diabetes Mellitus. Hematocrit Auto (Bld) [Volum e fraction]Ordered By: Melia Mantilla on 07-25-2024 Hematocrit (Bld) [Volume fraction] Hematocrit [Volume Fraction] of Blood by Automated count 34.0-46.4 [facility] Hematocrit [Volume Fraction] of Blood by Automated countOrdered By: Melia Mantilla on 07-25-2024 Hematocrit (Bld) [Volume fraction] 41.7 % Normal 34.0-46.4 [facility] Comment on above: Performed By: #### C BC #### [address] Hemoglobin [Mass/volume] in BloodOrdered By: Melia Mantilla on 07-25-2024 Hemoglobin (Bld) [Mass/Vol] 14.1 g/dL Normal 11.8-15.4 [facility] Comment on above: Performed By: #### C BC #### [address] Hemoglobin (Bld) [Mass/Vol] Hemoglobin [Mass/volume] in Blood 11.8-15.4 [facility] Leukocytes [#/volume] correc nicole for nucleated erythrocytes in Blood by Automated counOrdered By: Melia Mantilla on 07-25-2024 WBC corrected for nucl RBC Auto (Bld) [#/Vol] 6.7 10*3/uL 3.8-11.6 [facility] WBC corrected for nucl RBC Auto (Bld) [#/Vol] Leukocytes [#/volume] corrected for nucleated erythrocytes in Blood by Automated coun 3.8-11.6 [facility] Leukocytes [#/volume] in Blo od by Automated countOrdered By: Melia Mantilla on 07-25-2024 WBC (Bld) [#/Vol] 6.7 10*3/uL Normal 3.8-11.6 [facility] Comment on above: Performed By: #### C BC #### [address] Lymphocytes Auto (Bld) [#/Vo l]Ordered By: Melia Mantilla on 07-25-2024 Lymphocytes (Bld) [#/Vol] Lymphocytes [#/volume] in Blood by Automated count 1.00-4.8 [facility] Lymphocytes [#/volume] in Bl ood by Automated countOrdered By: Melia Mantilla on 07-25-2024 Lymphocytes (Bld) [#/Vol] 2.3 10*3/uL Normal 1.00-4.8 [facility] Comment on above: Performed By: #### C BC #### [address] Lymphocytes/100 WBC Auto (Bl d)Ordered By: Melia Mantilla on 07-25-2024 Lymphocytes/100 WBC (Bld) Lymphocytes/100 leukocytes in Blood by Automated count . [facility] [facility] Lymphocytes/100 leukocytes i n Blood by Automated countOrdered By: Melia Mantilla on 07-25-2024 Lymphocytes/100 WBC (Bld) 35.2 % Normal . [facility] Comment on above: Performed By: #### C BC #### [address] MCH Auto (RBC) [Entitic mass ]Ordered By: Melia Mantilla on 07-25-2024 MCH (RBC) [Entitic mass] MCH [Entitic ma ss] by Automated count 24.7-34.3 [facility] MCH [Entitic mass] by Automa nicole countOrdered By: Melia Mantilla on 07-25-2024 MCH (RBC) [Entitic mass] 29.1 pg Normal 24.7-34.3 [facility] Comment on above: Performed By: #### C BC #### [address] MCHC Auto (RBC) [Mass/Vol]Or dered By: Melia Mantilla on 07-25-2024 MCHC (RBC) [Mass/Vol] 33.8 g/dL 32.0-35.0 [facility] MCHC (RBC) [Mass/Vol] MCHC [Mass/volume] by Automated count 32.0-35.0 [facility] MCV Auto (RBC) [Entitic vol] Ordered By: Melia Mantilla on 07-25-2024 MCV (RBC) [Entitic vol] MCV [Entitic vol ume] by Automated count 80-100 [facility] MCV [Entitic volume] by Auto mated countOrdered By: Melia Mantilla on 07-25-2024 MCV (RBC) [Entitic vol] 86.1 fL Normal 80-100 [facility] Comment on above: Performed By: #### C BC #### [address] Magnesium [Mass/volume] in [place] or PlasmaOrdered By: Melia Mantilla on 07-25-2024 Magnesium [Mass/Vol] 1.9 mg/dL Normal 1.9-2.7 [facility] Comment on above: Result Comment: PERF ORMED BY: [address] [place] [address] PATHOLOGIST [employer] INSPECTOR BORIS ELIZABETH M.D. Performed By: #### C MP, MG #### [address] Magnesium [Mass/Vol] Magnesium [Mass/vol ume] in Serum or Plasma 1.9-2.7 [facility] Monocytes Auto (Bld) [#/Vol] Ordered By: Melia Mantilla on 07-25-2024 Monocytes (Bld) [#/Vol] Automated blood monocyte count 0.0-0.8 [facility] Monocytes/100 WBC Auto (Bld) Ordered By: Mleia Mantilla on 07-25-2024 Monocytes/100 WBC (Bld) Automated monocyte % . [facility] Neutrophils Auto (Bld) [#/Vo l]Ordered By: Melia Mantilla on 07-25-2024 Neutrophils (Bld) [#/Vol] Neutrophils [#/volume] in Blood by Automated count 1.8-7.7 [facility] Neutrophils [#/volume] in Bl ood by Automated countOrdered By: Melia Mantilla on 07-25-2024 Neutrophils (Bld) [#/Vol] 3.8 10*3/uL Normal 1.8-7.7 [facility] Comment on above: Performed By: #### C BC #### [address] Neutrophils/100 WBC Auto (Bl d)Ordered By: Melia Mantilla on 07-25-2024 Neutrophils/100 WBC (Bld) Automated neutrophil % . [facility] No Panel InformationOrdered By: Melia Mantilla on 07-25-2024 Estimated GFR (CKD-EPI) > 60.0 mL/Min [facility] Creatinine Clearance (Chem N/A [facility] Nucleated erythrocytes [Pres ence] in Blood by Automated countOrdered By: Melia Mantilla on 07-25-2024 Nucleated RBC Auto Ql (Bld) 0.1 /100{WBC} 0-0.5 [facility] Nucleated RBC Auto Ql (Bld) Nucleated erythrocytes [Presence] in Blood by Automated count 0-0.5 [facility] Platelet mean volume Auto (B ld) [Entitic vol]Ordered By: Melia Mantilla on 07-25-2024 Platelet mean volume (Bld) [Entitic vol] Platelet mean volume [Entitic volume] in Blood by Automated count 6.3-10.7 [facility] Platelet mean volume [Entiti c volume] in Blood by Automated countOrdered By: Melia Mantilla on 07-25-2024 Platelet mean volume (Bld) [Entitic vol] 7.8 fL Normal 6.3-10.7 [facility] Comment on above: Performed By: #### C BC #### [address] Platelets Auto (Bld) [#/Vol] Ordered By: Melia Mantilla on 07-25-2024 Platelets (Bld) [#/Vol] Platelets [#/vol ume] in Blood by Automated count 150-450 [facility] Platelets [#/volume] in Bloo d by Automated countOrdered By: Melia Mantilla on 07-25-2024 Platelets (Bld) [#/Vol] 280 10*3/uL Normal 150-450 [facility] Comment on above: Performed By: #### C BC #### [address] Potassium [Moles/volume] in Serum or PlasmaOrdered By: Melia Mantilla on 07-25-2024 Potassium [Moles/Vol] 4.1 mmol/L Normal 3.5-5.1 [facility] Comment on above: Performed By: #### C MP, MG #### [address] Potassium [Moles/Vol] Potassium [Moles/v olume] in Serum or Plasma 3.5-5.1 [facility] Protein [Mass/volume] in Ser um or PlasmaOrdered By: Melia Mantilla on 07-25-2024 Protein [Mass/Vol] 6.5 g/dL Normal 6.4-8.9 [facility] Comment on above: Performed By: #### C MP, MG #### [address] Protein [Mass/Vol] Protein [Mass/volume ] in Serum or Plasma 6.4-8.9 [facility] RBC Auto (Bld) [#/Vol]Ordere d By: Melia Mantilla on 07-25-2024 RBC (Bld) [#/Vol] Erythrocytes [#/volu me] in Blood by Automated count 3.60-5.00 [facility] Serum globulin measurement b y calculation (mass/volume)Ordered By: Melia Mantilla on 07-25-2024 Globulin (S) [Mass/Vol] 2.1 g/dL Normal [facility] Comment on above: Performed By: #### C MP, MG #### [address] Serum or plasma albumin/glob ulin mass ratioOrdered By: Melia Mantilla on 07-25-2024 Albumin/Globulin [Mass ratio] 2.1 {ratio} Normal [facility] Comment on above: Performed By: #### C MP, MG #### [address] Albumin/Globulin [Mass ratio] Serum or plasma albumin/globulin mass ratio [facility] Serum or plasma anion gap de terminationOrdered By: Melia Mantilla on 07-25-2024 Anion gap [Moles/Vol] 7.9 mmol/L Normal 6.0-15.0 [facility] Comment on above: Performed By: #### C MP, MG #### [address] Anion gap [Moles/Vol] Serum or plasma an ion gap determination 6.0-15.0 [facility] Sodium [Moles/volume] in Ser um or PlasmaOrdered By: Melia Mantilla on 07-25-2024 Sodium [Moles/Vol] 143 mmol/L Normal 136-145 [facility] Comment on above: Performed By: #### C MP, MG #### [address] Sodium [Moles/Vol] Sodium [Moles/volume ] in Serum or Plasma 136-145 [facility] Urea nitrogen [Mass/volume] in Serum or PlasmaOrdered By: Melia Mantilla on 07-25-2024 Urea nitrogen [Mass/Vol] 11 mg/dL Normal 04-12 [facility] Comment on above: Performed By: #### C MP, MG #### [address] Urea nitrogen [Mass/Vol] Urea nitrogen [Mass/volume] in Serum or Plasma 04-12 [facility] WBC Auto (Bld) [#/Vol]Ordere d By: Melia Mantilla on 07-25-2024 WBC (Bld) [#/Vol] Leukocytes [#/volume ] in Blood by Automated count 3.8-11.6 [facility] XR lumbar spine 2-3V*on XR lumbar spine 2-3V* [facility] Main [address] [address] XRay Report Signed Patient: So Dorman MR#: [id number] 2 : 2005 Acct:[id number] Age/Sex: 18 / F ADM Date: 07/25/24 Loc: XD Room: Type: REG CLI Attending Dr: Melia Mantilla GINSENG FARMER-C Copies to: Melia Mantilla MUD TEMPERER Ordering Provider: Melia Mantilla CNP Date of Service: 07/25/24 XR/XR lumbar spine 2-3V*: low back/SI pain-worse on left LUMBAR SPINE - 2 views CLINICAL HISTORY: Bilateral hip pain, low back pain which is chronic. COMPARISON: None FINDINGS: Vertebral body heights appear maintained. No significant disc height loss. Facet joints appear unremarkable. SI joints appear unremarkable. XR/XR lumbar spine 2-3V* IMPRESSION: NO ACUTE BONY PROCESS. Impression dictated by: Sea Shepard Jr., D.O.07/25/2024 3:34 PM Dictation Location: [place] [address] Transcribed By: [facility] 07/25/24 1534 Dictated By: Sea Shepard Jr, DO 07/25/24 1533 Signed By: 07/25/24 1534 Normal [facility] XR si jointson 07-25-2024 XR si joints [facility] Main [place] [id number] XRay Report Signed Patient: So Dorman MR#: [id number] 2 : 2005 Acct:[id number] Age/Sex: 18 / F ADM Date: 07/25/24 Loc: XD Room: Type: [facility] CLI Attending Dr: Melia Mantilla GINSENG FARMER-C Copies to: Melia Mantilla CNP Ordering Provider: Melia Mantilla CNP Date of Service: 07/25/24 XR/XR si joints: low back/SI pain-worse on left SI joints 3 views Reason for exam: Chronic bilateral hip and low back pain. COMPARISON: None. FINDINGS: Presumed bone island is seen involving the right sacrum. Neural foramina appear intact. SI joints appear unremarkable. XR/XR si joints IMPRESSION: No acute findings. Impression dictated by: Sea Shepard Jr., D.O.07/25/2024 3:35 PM Dictation Location: [place] [address] Transcribed By: [facility] 07/25/241534 Dictated By: Sea Shepard Jr, DO 07/25/241533 Signed By: 07/25/241534 Normal [facility] Omega 11-04-2023 L Specimen: [id number] Received: 11/07/23 Status: LEEANNE Foster Num: [id number] Spec Type: Surgical Subm Dr: Hue Flores Tissues: A Ovary - Cyst, Non-Neoplastic (LT OVARIAN CYST) Procedures: HE/3, Gross/Micro L4 Age/ Patient Sex Location Account Attending Physician So Dorman 18/F LABELL [id number] Hue Flores SPEC NUM: [id number] RECD: 11/07/23 STATUS: LEEANNE FOSTER NUM: [id number] MARY: 11/04/23- SUBM DR: Hue Flores ENTERED: 11/07/23-1330 [facility] DR: Elie,Lab SPEC TYPE: Surgical DEPT: AMRIK [place] ORDERED: HE/3, Gross/Micro L4 ORDERED: HE/3, Gross/Micro L4 Pathological Diagnosis Left ovarian cyst wall, resection: Endometrioma. Ovarian follicular cysts. Clinical Information Pelvic pain, left ovarian cyst wall, endometrioma Gross Description Received in formalin labeled with the patient's name, date of and left ovarian cyst wall is a 4.2 g, 3.2 x 2.7 x 1.0 cm partial ovary. The surface is brothers-robin smooth and glistening with no excrescences or suspicious foci. The opposing aspect is concave, consistent with a cyst wall, and demonstrates an internal lining that is red-brown and velvety to brothers-robin and glistening. The residual ovarian parenchyma is robin-brothers and soft with small intact cysts up to 0.5 cm in diameter. There are no excrescences or suspicious foci. The majority of the specimen is submitted. [employer] sections are submitted in three cassettes labeled A1-A3. CPT Codes 71385 Specimen: [id number] Received: 11/07/23 Status: CHRISTINAHerbert Kristin Num: [id number] Spec Type: Surgical Subm Dr: Hue Flores Tissues: A Ovary - Cyst, Non-Neoplastic (LT OVARIAN CYST) Procedures: HE/3, Gross/Micro L4 Patient: So Dorman [id number] (Continued) Signed (signature on file) Amy Callahan MD 11/10/232136 Normal [facility] ALL LDHon 11-03-2023 LDH [Catalytic activity/Vol] 129 U/L 81 - 234 U/L [facility] XR LSPINE MIN 4 VIEWSon 12-19 XR [...] JOY CARDOZA Date: 2023-01-10 11:59 Normal [facility] CBC AUTO DIFFon 11-12-2022 BASO # 0.0 103/ul Normal 0.0-0.1 [facility] Comment on above: Performed By: #### C BC #### [facility] [address] [place] [address] Dr. Hilda Harden Basophils/100 WBC (Bld) 0.3 % Normal 0.2-2.0 [facility] Comment on above: Performed By: #### C BC #### [facility] [address] [place] [address] Dr. Hilda Harden EO # 0.1 103/ul Normal 0.0-0.7 [facility] Comment on above: Performed By: #### C BC #### [facility] [address] [place] [address] Dr. Hilda Harden Eosinophils/100 WBC (Bld) 1.3 % Normal 0.9-7.0 [facility] Comment on above: Performed By: #### C BC #### [facility] [address] [place] [address] Dr. Hilda Harden Erythrocyte distribution width (RBC) [Ratio] 13.3 % Normal 11.0-15.0 [facility] Comment on above: Performed By: #### C BC #### [facility] [address] [place] [address] Dr. Hilda Harden Hematocrit (Bld) [Volume fraction] 40.9 % Normal 36.0-48.0 [facility] Comment on above: Performed By: #### C BC #### [facility] [address] [place] [address] Dr. Hilda Harden Hemoglobin (Bld) [Mass/Vol] 13.9 g/dL Normal 12.0-16.0 [facility] Comment on above: Performed By: #### C BC #### [facility] [address] [place] [address] Dr. Hilda Harden IG # 0.02 10e3/ul Normal 0.00-0.03 [facility] Comment on above: Performed By: #### C BC #### [facility] [address] [place] [address] Dr. Hilda Harden IG % 0.3 % Normal 0.0-0.5 [facility] Comment on above: Performed By: #### C BC #### [facility] [address] [place] [address] Dr. Hilda Harden LYMPH # 2.5 103/ul Normal 1.2-3.8 [facility] Comment on above: Performed By: #### C BC #### [facility] [address] [place] [address] Dr. Hilda Harden Lymphocytes/100 WBC (Bld) 41.4 % Normal 20.5-60.0 [facility] Comment on above: Performed By: #### C BC #### [facility] [address] [place] [address] Dr. Hilda Harden MANUAL DIFF REQ NO Normal [facility] Comment on above: Performed By: #### C BC #### [facility] [address] [place] [address] Dr. Hilda Harden MCH (RBC) [Entitic mass] 28.8 pg Normal 26.7-34.0 [facility] Comment on above: Performed By: #### C BC #### [facility] [address] [place] [address] Dr. Hilda Harden MCHC (RBC) [Mass/Vol] 34.0 g/dL Normal 29.9-35.2 [facility] Comment on above: Performed By: #### C BC #### [facility] [address] [place] [address] Dr. Hilda Harden MCV (RBC) [Entitic vol] 84.9 fL Normal 81.0-99.0 [facility] Comment on above: Performed By: #### C BC #### [facility] [address] [place] [address] Dr. Hilda Harden MONO # 0.4 103/ul Normal 0.3-0.8 [facility] Comment on above: Performed By: #### C BC #### [facility] [address] [place] [address] Dr. Hilda Harden Monocytes/100 WBC (Bld) 6.9 % Normal 1.7-12.0 [facility] Comment on above: Performed By: #### C BC #### [facility] [address] [place] [address] Dr. Hilda Harden NEUT # 3.0 103/ul Normal 1.4-6.5 [facility] Comment on above: Performed By: #### C BC #### [facility] [address] [place] [address] Dr. Hilda Harden Neutrophils/100 WBC (Bld) 49.8 % Normal 43.0-75.0 [facility] Comment on above: Performed By: #### C BC #### [facility] [address] [place] [address] Dr. Hilda Harden Platelet mean volume (Bld) [Entitic vol] 9.6 fL Normal 9.5-13.5 [facility] Comment on above: Performed By: #### C BC #### [facility] [address] [place] [address] Dr. Hilda Harden PLT 279 103/ul Normal 150-450 [facility] Comment on above: Performed By: #### C BC #### [facility] [address] [place] [address] [address] Hilda Harden RBC 4.82 106/ul Normal 4.20-5.40 [facility] Comment on above: Performed By: #### C BC #### [facility] [address] [place] [address] [address] Hilda Harden WBC 6.1 103/ul Normal 4.0-11.0 [facility] Comment on above: Performed By: #### C BC #### [facility] [address] [place] [address] Dr. Hilda Harden PREG QUANT HCGon 11-12-2022 HCG QUANT <1 Normal [facility] Comment on above: Performed By: #### C T/NGNA #### [facility] [address] [place] [address] Dr. Hilda Harden HCG RANGE SEE BELOW Normal [facility] Comment on above: Result Comment: 5-50 0.2-1 WEEK 50-500 1-2 WEEKS 100-5,000 2-3 WEEKS 500-10,000 3-4 WEEKS 1,000-50,000 4-5 WEEKS 10,000-100,000 5-6 WEEKS 15,000-200,000 6-8 WEEKS 10,000-100,000 2-3 MONTHS Performed By: #### C T/NGNA #### [facility] [address] [place] [address] Dr. Hilda Harden AFP (TUMOR MARKER)on 023 AFP, Serum, Tumor Marker 4.9 ng/mL Critically high 0.0-4. 7 [facility] Comment on above: Result Comment: [employer] Electrochemiluminescence Immunoassay (ECLIA) . Values obtained with different assay methods or kits cannot be used interchangeably. Results cannot be interpreted as absolute evidence of the presence or absence of malignant disease. . This test is not interpretable in females. Performed By: #### A FP. #### [facility] [address] [place] [address] Dr. Hilda Harden CA 125on 10-20-2022 Cancer Antigen (CA) 125 34.1 U/mL Normal 0.0-38.1 [facility] Comment on above: Result Comment: [employer] Electrochemiluminescence Immunoassay (ECLIA) . Values obtained with different assay methods or kits cannot be used interchangeably. Results cannot be interpreted as absolute evidence of the presence or absence of malignant disease. Performed By: #### C A 125 #### [facility] [address] [place] [address] [address] Hilda Harden CEAon 10-20-2022 CEA 1.3 ng/mL Normal 0.0-4.7 [facility] Comment on above: Result Comment: Nons mokers <3.9 Smokers <5.6 . [employer] [facility] Electrochemiluminescence Immunoassay (ECLIA) . Values obtained with different assay methods or kits cannot be used interchangeably. Results cannot be interpreted as absolute evidence of the presence or absence of malignant disease. Performed By: #### C T/NGNA #### [facility] [address] [place] [address] Dr. Hilda Harden HCG QUANT TUMOR MARKERon HCG QNT TUMOR MARKER <1 Normal [facility] Comment on above: Result Comment: Fema [...] developed and its performance characteristics determined by [employer]. It has not been cleared or approved by the Food and Drug Administration for use as a tumor marker. . This test is not interpretable as a tumor marker in females. Performed By: #### H CGTMOR #### [facility] [address] [place] [address] [address] Hilda Harden LDHon 10-19-2022 LDH 140 U/L Normal 81-234 [facility] Comment on above: Performed By: #### L #### [facility] [address] [place], [place] [address] Dr. Hilda Harden US PELVIS AND TRANSVAGon [...] JOY CARDOZA Date: 2022-10-15 13:53 Normal [facility] DHEA SERUMon 10-10-2022 Dehydroepiandrosterone (DHEA) 640 ng/dL Critically high 40-491 [facility] Comment on above: Result Comment: Age 1 [...] 701 Performed By: #### D HEA. #### [facility] [address] [place], [place] [address] Dr. Hilda Harden DHEA-SULFATEon 10-07-2022 DHEA-Sulfate 201.0 ug/dL Normal 110.0-433. 2 [facility] Comment on above: Performed By: #### C T/NGNA #### [facility] [address] [place] [address] Dr. Hilda Harden FSHon 10-07-2022 FSH 4.1 mIU/mL Normal [facility] Comment on above: Result Comment: Adul t Female: Follicular phase 3.5 - 12.5 Ovulation phase 4.7 - 21.5 Luteal phase 1.7 - 7.7 Postmenopausal 25.8 - 134.8 Performed By: #### C T/NGNA #### [facility] [address] [place] [address] Dr. Hilda Harden LUTEINIZING HORMONE (LH)on 0 10-07-2022 LH 7.9 mIU/mL Normal [facility] Comment on above: Result Comment: Adul t Female: Follicular phase 2.4 - 12.6 Ovulation phase 14.0 - 95.6 Luteal phase 1.0 - 11.4 Postmenopausal 7.7 - 58.5 Performed By: #### C BC #### [facility] [address] [place] [address] Dr. Hilda Harden CBC AUTO DIFFon 10-06-2022 BASO # 0.0 103/ul Normal 0.0-0.1 [facility] Comment on above: Performed By: #### C BC #### [facility] [address] [place] [address] Dr. Hilda Harden Basophils/100 WBC (Bld) 0.3 % Normal 0.2-2.0 [facility] Comment on above: Performed By: #### C BC #### [facility] [address] [place] [address] Dr. Hilda Harden EO # 0.1 103/ul Normal 0.0-0.7 [facility] Comment on above: Performed By: #### C BC #### [facility] [address] [place] [address] Dr. Hilda Harden Eosinophils/100 WBC (Bld) 1.8 % Normal 0.9-7.0 [facility] Comment on above: Performed By: #### C BC #### [facility] [address] [place] [address] Dr. Hilda Harden Erythrocyte distribution width (RBC) [Ratio] 13.3 % Normal 11.0-15.0 [facility] Comment on above: Performed By: #### C BC #### [facility] [address] [place] [address] Dr. Hilda Harden Hematocrit (Bld) [Volume fraction] 39.9 % Normal 36.0-48.0 [facility] Comment on above: Performed By: #### C BC #### [facility] [address] [place] [address] Dr. Hilda Harden Hemoglobin (Bld) [Mass/Vol] 13.1 g/dL Normal 12.0-16.0 [facility] Comment on above: Performed By: #### C BC #### [facility] [address] [place] [address] Dr. Hilda Harden IG # 0.02 10e3/ul Normal 0.00-0.03 [facility] Comment on above: Performed By: #### C BC #### [facility] [address] [place] [address] Dr. Hilda Harden IG % 0.3 % Normal 0.0-0.5 [facility] Comment on above: Performed By: #### C BC #### [facility] [address] [place] [address] Dr. Hilda Harden LYMPH # 2.1 103/ul Normal 1.2-3.8 [facility] Comment on above: Performed By: #### C BC #### [facility] [address] [place] [address] Dr. Hilda Harden Lymphocytes/100 WBC (Bld) 31.8 % Normal 20.5-60.0 [facility] Comment on above: Performed By: #### C BC #### [facility] [address] [place] [address] Dr. Hilda Harden MANUAL DIFF REQ NO Normal [facility] Comment on above: Performed By: #### C BC #### [facility] [address] [place] [address] Dr. Hilda Harden MCH (RBC) [Entitic mass] 27.8 pg Normal 26.7-34.0 [facility] Comment on above: Performed By: #### C BC #### [facility] [address] [place] [address] Dr. Hilda Harden MCHC (RBC) [Mass/Vol] 32.8 g/dL Normal 29.9-35.2 [facility] Comment on above: Performed By: #### C BC #### [facility] [address] [place] [address] Dr. Hilda Harden MCV (RBC) [Entitic vol] 84.5 fL Normal 81.0-99.0 [facility] Comment on above: Performed By: #### C BC #### [facility] [address] [place] [address] Dr. Hilda Harden MONO # 0.5 103/ul Normal 0.3-0.8 [facility] Comment on above: Performed By: #### C BC #### [facility] [address] [place] [address] Dr. Hilda Harden Monocytes/100 WBC (Bld) 7.8 % Normal 1.7-12.0 [facility] Comment on above: Performed By: #### C BC #### [facility] [address] [place] [address] Dr. Hilda Harden NEUT # 3.8 103/ul Normal 1.4-6.5 [facility] Comment on above: Performed By: #### C BC #### [facility] [address] [place] [address] Dr. Hilda Harden Neutrophils/100 WBC (Bld) 58.0 % Normal 43.0-75.0 [facility] Comment on above: Performed By: #### C BC #### [facility] [address] [place] [address] Dr. Hilda Harden Platelet mean volume (Bld) [Entitic vol] 9.7 fL Normal 9.5-13.5 [facility] Comment on above: Performed By: #### C BC #### [facility] [address] [address] [address] Hilda Harden PLT 266 103/ul Normal 150-450 [facility] Comment on above: Performed By: #### C BC #### [facility] [address] [place] [address] Dr. Hilda Harden RBC 4.72 106/ul Normal 4.20-5.40 [facility] Comment on above: Performed By: #### C BC #### [facility] [address] [place] [address] Dr. Hilda Harden WBC 6.6 103/ul Normal 4.0-11.0 [facility] Comment on above: Performed By: #### C BC #### [facility] [address] [place] [address] Dr. Hilda Harden FREE T4on 10-06-2022 Free T4 [Mass/Vol] 1.09 ng/dL Normal 0.78-1.34 [facility] Comment on above: Performed By: #### C T/NGNA #### [facility] [address] [place] [address] Dr. Hilda Harden GLYCOHEMOGLOBIN A1Con 2022 ADA RECOMMENDATION SEE BELOW Normal [facility] Comment on above: Result Comment: ADA RECOMMENDED LIMIT 4.0 - 6.0 ADA THERAPEUTIC TARGET < 7.0 ACTION SUGGESTED > 7.0 Performed By: #### A 1C #### [facility] [address] [place] [address] Dr. Hilda Harden Glucose [Mass/Vol] 100 mg/dL Normal [facility] Comment on above: Performed By: #### A 1C #### [facility] [address] [place] [address] Dr. Hilda Harden HbA1c (Bld) [Mass fraction] 5.1 % Normal 4.5-6.2 [facility] Comment on above: Performed By: #### A 1C #### [facility] [address] [place] [address] Dr. Hilda Harden TSHon 10-06-2022 TSH 1.199 uIU/mL Normal 0.516-4.13 0 [facility] Comment on above: Performed By: #### T SH #### [facility] [address] [place] [address] Dr. Hilda Harden CHLAMYDIA/GONOCOCCUS RON (SW AB/URINE/PAPon 05-07-2022 Chlamydia trachomatis, RON Negative Normal Negative [facility] Comment on above: Performed By: #### C T/NGNA #### [facility] [address] [place] [address] Dr. Hilda Harden Neisseria gonorrhoeae, RON Negative Normal Negative [facility] Comment on above: Performed By: #### C T/NGNA #### [facility] [address] [place] [address] Dr. Hilda Harden VAGINITIS/VAGINOSIS DNA PROB Harinder 05-06-2022 Shannen species Negative Normal Negative [facility] Comment on above: Performed By: #### C BC #### [facility] [address] [place] [address] Dr. Hilda Harden Gardnerella vaginalis Positive Abnormal Negative [facility] Comment on above: Performed By: #### C BC #### [facility] [address] [place] [address] Dr. Hilda Harden Trichomonas vaginalis Negative Normal Negative [facility] Comment on above: Performed By: #### C BC #### [facility] [address] [place] [address] Dr. Hilda Harden Basophils Auto (Bld) [#/Vol] Ordered By: Severo Lea on 02-07-2022 Basophils (Bld) [#/Vol] 0.0 10*3/uL 0.0-0.1 [facility] Basophils/100 WBC Auto (Bld) Ordered By: Severo Lea on 02-07-2022 Basophils/100 WBC (Bld) 0.6 % [facility] Bilirubin Test strip Ql (U)O rdered By: Severo Lea on 02-07-2022 Bilirubin Ql (U) Negative Negative [facility] Blood hemoglobin measurement (mass/volume)Ordered By: Severo Lea on 02-07-2022 Hemoglobin (Bld) [Mass/Vol] 13.8 g/dL 12.0-16.0 [facility] Blood leukocytes automated c ount (number/volume)Ordered By: Severo Lea on 02-07-2022 WBC (Bld) [#/Vol] 8.5 10*3/uL 4.5-13.5 [facility] Body fluid albumin measureme nt (mass/volume)Ordered By: Severo Lea on 02-07-2022 Albumin (Body fld) [Mass/Vol] 4.2 g/dL 3.2-5.5 [facility] Color Auto (U)Ordered By: Maren Lea on 02-07-2022 Color (U) Yellow Yellow [facility] Creatinine and Glomerular fi ltration rate.predicted panel (S/P/Bld)Ordered By: Severo Lea on 02-07-2022 Creatinine [Mass/Vol] 0.82 mg/dL 0.44-1.03 [facility] Eosinophils Auto (Bld) [#/Vo l]Ordered By: Severo Lea on 02-07-2022 Eosinophils (Bld) [#/Vol] 0.1 10*3/uL 0.0-0.7 [facility] Eosinophils/100 WBC Auto (Bl d)Ordered By: Severo Lea on 02-07-2022 Eosinophils/100 WBC (Bld) 0.7 % [facility] Erythrocyte distribution wid th Auto (RBC) [Ratio]Ordered By: Severo Lea on 02-07-2022 Erythrocyte distribution width (RBC) [Ratio] 14.2 % 11.9-15.3 [facility] Estimated glomerular filtrat ion rate (GFR) non- AmericanOrdered By: Severo Lea on 02-07-2022 GFR/1.73 sq M.predicted among non-blacks MDRD (S/P/Bld) [Vol rate/Area] > 60 mL/Min [facility] Globulin Calc (S) [Mass/Vol] Ordered By: Severo Lea on 02-07-2022 Globulin (S) [Mass/Vol] 2.4 g/dL [facility] HCG ( test) IA.rapi d Ql (U)Ordered By: Severo Lea on 02-07-2022 HCG ( test) Ql (U) Negative [facility] Hematocrit Auto (Bld) [Volum e fraction]Ordered By: Severo Lea on 02-07-2022 Hematocrit (Bld) [Volume fraction] 41.5 % 36.0-46.0 [facility] Ketones Auto test strip (U) [Mass/Vol]Ordered By: Severo Lea on 02-07-2022 Ketones (U) [Mass/Vol] Trace Negative [facility] Laboratory - Chemistry and C hemistry - challengeOrdered By: Severo Lea on 02-07-2022 Lipase [Catalytic activity/Vol] 53.0 U/L [facility] - Hematology and Cell countsOrdered By: Severo Lea on 02-07-2022 Nucleated RBC/100 WBC (Bld) [Ratio] 0.0 % 0-0.5 [facility] Lymphocytes Auto (Bld) [#/Vo l]Ordered By: Severo Lea on 02-07-2022 Lymphocytes (Bld) [#/Vol] 2.0 10*3/uL 1.20-4.8 [facility] Lymphocytes/100 WBC Auto (Bl d)Ordered By: Severo Lea on 02-07-2022 Lymphocytes/100 WBC (Bld) 23.8 % [facility] MCH Auto (RBC) [Entitic mass ]Ordered By: Severo Lea on 02-07-2022 MCH (RBC) [Entitic mass] 28.6 pg 25.0-35.0 [facility] MCHC Auto (RBC) [Mass/Vol]Or dered By: Severo Lea on 02-07-2022 MCHC (RBC) [Mass/Vol] 33.3 g/dL 31.0-37.0 [facility] MCV Auto (RBC) [Entitic vol] Ordered By: Severo Lea on 02-07-2022 MCV (RBC) [Entitic vol] 85.8 fL 78-102 [facility] Monocytes Auto (Bld) [#/Vol] Ordered By: Severo Lea on 02-07-2022 Monocytes (Bld) [#/Vol] 0.6 10*3/uL 0.1-1.00 [facility] Monocytes/100 WBC Auto (Bld) Ordered By: Severo Lea on 02-07-2022 Monocytes/100 WBC (Bld) 7.6 % [facility] Neutrophils Auto (Bld) [#/Vo l]Ordered By: Severo Lea on 02-07-2022 Neutrophils (Bld) [#/Vol] 5.7 10*3/uL 1.2-7.7 [facility] Neutrophils/100 WBC Auto (Bl d)Ordered By: Severo Lea on 02-07-2022 Neutrophils/100 WBC (Bld) 67.3 % [facility] Nitrite Test strip Ql (U)Ord ered By: Severo Lea on 02-07-2022 Nitrite Ql (U) Negative Negative [facility] No Panel InformationOrdered By: Severo Lea on 02-07-2022 Estimated GFR () > 60 mL/Min [facility] Comment on above: GFR estimated refere nce range: According to KDOQI guidelines, <60 ml/min/1.73m2 is sufficient to diagnose a patient with chronic kidney disease. Pharmacy Creatinine Clearance (Chem 100.48 [facility] Platelet mean volume Auto (B ld) [Entitic vol]Ordered By: Severo Lea on 02-07-2022 Platelet mean volume (Bld) [Entitic vol] 8.6 fL 6.3-10.7 [facility] Platelets Auto (Bld) [#/Vol] Ordered By: Severo Lea on 02-07-2022 Platelets (Bld) [#/Vol] 304 10*3/uL 150-450 [facility] Protein Auto test strip (U) [Mass/Vol]Ordered By: Severo Lea on 02-07-2022 Protein (U) [Mass/Vol] Negative Negative [facility] Protein [Mass/volume] in Ser um or PlasmaOrdered By: Severo Lea on 02-07-2022 Protein [Mass/Vol] 6.6 g/dL 6.1-7.9 [facility] RBC Auto (Bld) [#/Vol]Ordere d By: Severo Lea on 02-07-2022 RBC (Bld) [#/Vol] 4.84 10*6/uL 4.10-5.[address] [facility] Serum or plasma alanine guerra otransferase measurement without P-5'-P (enzymatic activiOrdered By: Severo Lea on 02-07-2022 ALT No additional P-5'-P [Catalytic activity/Vol] 14 U/L 10-60 [facility] Serum or plasma albumin/glob ulin mass ratioOrdered By: Severo Lea on 02-07-2022 Albumin/Globulin [Mass ratio] 1.8 {ratio} [facility] Serum or plasma alkaline wil sphatase measurement (enzymatic activity/volume)Ordered By: Severo Lea on 02-07-2022 ALP [Catalytic activity/Vol] 46 U/L 32-92 [facility] Serum or plasma amylase jamar urement (enzymatic activity/volume)Ordered By: Severo Lea on 02-07-2022 Amylase [Catalytic activity/Vol] 70 U/L 28-100 [facility] Serum or plasma aspartate am inotransferase measurement (enzymatic activity/volume)Ordered By: Severo Lea on 02-07-2022 AST [Catalytic activity/Vol] 15 U/L 10-42 [facility] Serum or plasma calcium jamar urement (mass/volume)Ordered By: Severo Lea on 02-07-2022 Calcium [Mass/Vol] 9.3 mg/dL 8.2-10.2 [facility] Serum or plasma chloride payton surement (moles/volume)Ordered By: Severo Lea on 02-07-2022 Chloride [Moles/Vol] 107 mmol/L 95-114 [facility] Serum or plasma glucose jamar urement (mass/volume)Ordered By: Severo Lea on 02-07-2022 Glucose [Mass/Vol] 94 mg/dL 70-100 [facility] Comment on above: ADA recommended refe rence range Random Glucose Reference Range is dependent on time and content of last meal. Glucose of more than 200 mg/dL in a nonstressed, ambulatory subject supports the diagnosis of Diabetes Mellitus. Serum or plasma potassium me asurement (moles/volume)Ordered By: Severo Lea on 02-07-2022 Potassium [Moles/Vol] 4.2 mmol/L 3.5-5.1 [facility] Serum or plasma sodium measu rement (moles/volume)Ordered By: Severo Lea on 02-07-2022 Sodium [Moles/Vol] 140 mmol/L 136-146 [facility] Serum or plasma total biliru bin measurement (mass/volume)Ordered By: Severo Lea on 02-07-2022 Bilirubin [Mass/Vol] 0.5 mg/dL 0.3-1.2 [facility] Serum or plasma total carbon dioxide measurement (moles/volume)Ordered By: Severo Lea on 02-07-2022 CO2 [Moles/Vol] 25.1 mmol/L 22.0-30.0 [facility] Serum or plasma urea nitroge n measurement (mass/volume)Ordered By: Severo Lea on 02-07-2022 Urea nitrogen [Mass/Vol] 11 mg/dL 06-11 [facility] Specific gravity Auto test s trip (U) [Rel density]Ordered By: Severo Lea on 02-07-2022 Specific gravity (U) [Rel density] 1.027 1.001-1.03 0 [facility] Urine clarity by refractomet ry automatedOrdered By: Severo Lea on 02-07-2022 Clarity Refractometry automated (U) Clear Clear [facility] Urine glucose measurement by automated test strip (mass/volume)Ordered By: Severo Lea on 02-07-2022 Glucose Auto test strip (U) [Mass/Vol] Normal mg/dL Normal [facility] Urine hemoglobin detection b y automated test stripOrdered By: Severo Lea on 02-07-2022 Hemoglobin Auto test strip Ql (U) Negative Negative [facility] Urine leukocyte esterase det ection by automated test stripOrdered By: Severo Lea on 02-07-2022 Leukocyte esterase Auto test strip Ql (U) Negative Negative [facility] Urobilinogen Auto test strip (U) [Mass/Vol]Ordered By: Severo Lea on 02-07-2022 Urobilinogen (U) [Mass/Vol] Normal mg/dL Normal [facility] pH Auto test strip (U)Ordere d By: Severo Lea on 02-07-2022 pH (U) 6.0 [pH] 5.0-9.0 [facility] COVID-19 SOFIAOrdered By: Juve Morris on 11-16-2021 SARS-CoV+SARS-CoV-2 (COVID-19) Ag IA.rapid Ql (Resp) Negative Negative [facility] Comment on above: This is a duplicate Ann SARS Antigen (DEMETRIUS) result to be used for statistical tracking purpose only. No Panel InformationOrdered By: Augustin Morris on 11-16-2021 SARS Antigen (LFIA) [facility] Vital Signs Date Time Vital Sign Value Performing Clinician Facility 10-22-2024 10:16-0500 Body mass index (BMI) [Ratio] 26.06 kg/m2 Melia Potter PA Work Phone: [facility] 10-22-2024 10:16-0500 Body weight 68.86 kg Melia Potter PA Work Phone: [facility] 10-22-2024 10:16-0500 Diastolic blood pressure 80 mm[Hg] Melia Potter PA Work Phone: [facility] 10-22-2024 10:16-0500 Systolic blood pressure 110 mm[Hg] Melia Potter PA Work Phone: [facility] 10-17-2024 22:42-0500 Diastolic blood pressure 95 mm[Hg] Melia Warchol [employer] Work Phone: [facility] 10-17-2024 22:42-0500 Heart rate 85 /min Melia Warchol [employer] Work Phone: [facility] 10-17-2024 22:42-0500 Respiratory rate 20 /min Melia Warchol [employer] Work Phone: [facility] 10-17-2024 22:42-0500 SaO2% (BldA) [Mass fraction] 100 % Melia Warchol [employer] Work Phone: [facility] 10-17-2024 22:42-0500 Systolic blood pressure 138 mm[Hg] Melia Warchol [employer] Work Phone: [facility] 10-17-2024 19:50-0500 Body height 162.56 cm Emlia Warchol [employer] Work Phone: [facility] 10-17-2024 19:50-0500 Body temperature 97.5 [degF] Melia Warchol [employer] Work Phone: [facility] 10-17-2024 19:50-0500 Body weight 67.7 kg Melia Igorchol [employer] Work Phone: [facility] 09-03-2024 10:32-0500 Body height 162.6 cm Melia Warchol [employer] Work Phone: [facility] 09-03-2024 10:32-0500 Body mass index (BMI) [Ratio] 26.02 kg/m2 Melia Warchol [employer] Work Phone: [facility] 09-03-2024 10:32-0500 Body temperature 97.2 [degF] Melia Warchol [employer] Work Phone: [facility] 09-03-2024 10:32-0500 Body weight 68.77 kg Melia Warchol [employer] Work Phone: [facility] 09-03-2024 10:32-0500 Diastolic blood pressure 64 mm[Hg] Melia Warchol [employer] Work Phone: [facility] 09-03-2024 10:32-0500 Heart rate 87 /min Melia Warchol [employer] Work Phone: [facility] 09-03-2024 10:32-0500 SaO2% (BldA) [Mass fraction] 99 % Melia Warchol [employer] Work Phone: [facility] 09-03-2024 10:32-0500 Systolic blood pressure 118 mm[Hg] Melia Warchol [employer] Work Phone: [facility] 07-27-2024 10:31-0500 Body height 163.8 cm Melia Warchol [employer] Work Phone: [facility] 07-27-2024 10:31-0500 Body mass index (BMI) [Ratio] 25.05 kg/m2 Melia Warchol [employer] Work Phone: [facility] 07-27-2024 10:31-0500 Body weight 67.22 kg Melia Warchol [employer] Work Phone: [facility] 07-27-2024 10:31-0500 Diastolic blood pressure 80 mm[Hg] Melia Warchol [employer] Work Phone: [facility] 07-27-2024 10:31-0500 Heart rate 90 /min Melia Warchol [employer] Work Phone: [facility] 07-27-2024 10:31-0500 Respiratory rate 18 /min Melia Warchol [employer] Work Phone: [facility] 07-27-2024 10:31-0500 SaO2% (BldA) [Mass fraction] 98 % Melia Warchol [employer] Work Phone: [facility] 07-27-2024 10:31-0500 Systolic blood pressure 136 mm[Hg] Melia Warchol [employer] Work Phone: [facility] 06-18-2024 14:33-0400 Body height 163.8 cm Melia Warchol [employer] Work Phone: [facility] 06-18-2024 14:33-0400 Body mass index (BMI) [Ratio] 25.45 kg/m2 Melia Warchol [employer] Work Phone: [facility] 06-18-2024 14:33-0400 Body temperature 98.2 [degF] Melia Warchol [employer] Work Phone: [facility] 06-18-2024 14:33-0400 Body weight 68.31 kg Melia Warchol [employer] Work Phone: [facility] 06-18-2024 14:33-0400 Diastolic blood pressure 80 mm[Hg] Melia Warchol [employer] Work Phone: [facility] 06-18-2024 14:33-0400 Heart rate 87 /min Melia Warchol [employer] Work Phone: [facility] 06-18-2024 14:33-0400 Respiratory rate 18 /min Melia Warchol [employer] Work Phone: [facility] 06-18-2024 14:33-0400 SaO2% (BldA) [Mass fraction] 100 % Melia Warchol [employer] Work Phone: [facility] 06-18-2024 14:33-0400 Systolic blood pressure 138 mm[Hg] Melia Warchol [employer] Work Phone: [phone] [place] [address] 02-07-2022 20:47-0400 Body height 161.29 cm MD Joe Rosenberg Work Phone: [facility] 02-07-2022 20:47-0400 Body mass index (BMI) [Percentile] Per age and sex 79.7 % MD Joe Rosenberg Work Phone: [facility] 02-07-2022 20:47-0400 Body mass index (BMI) [Ratio] 24.7 kg/m2 MD Joe Rosenberg Work Phone: [facility] 02-07-2022 20:47-0400 Body weight 64.41 kg MD Joe Rosenberg Work Phone: [facility] 02-07-2022 20:46-0400 Body temperature 98.6 [degF] MD Joe Rosenberg Work Phone: [facility] 02-07-2022 20:46-0400 Diastolic blood pressure 84 mm[Hg] MD Joe Rosenberg Work Phone: [facility] 02-07-2022 20:46-0400 Heart rate 95 /min MD Joe Rosenberg Work Phone: [facility] 02-07-2022 20:46-0400 Respiratory rate 18 /min MD Joe Rosenberg Work Phone: [facility] 02-07-2022 20:46-0400 SaO2% (BldA) [Mass fraction] 100 % MD Joe Rosenberg Work Phone: [facility] 02-07-2022 20:46-0400 Systolic blood pressure 138 mm[Hg] MD Joe Rosenberg Work Phone: [facility] Encounters Encounter Date Encounter Type Care Provider Facility Start: 11-09-2024 End: 11-12-2024 Telephone encounter Melia Mantilla NP Work Phone: [facility] Start: 11-06-2024 End: 11-06-2024 ambulatory MELIA POTTER Not Available Start: 10-22-2024 End: 10-22-2024 Office outpatient visit 15 minutes Melia Potter PA Work Phone: [facility] Comment on above: Abdominal cramping; Cyst of left ovary Start: 10-22-2024 End: 10-22-2024 ambulatory MELIA POTTER Not Available Start: 10-17-2024 End: 10-18-2024 Emergency department patient visit Melia Mantilla [employer] Work Phone: [facility] Work Phone: Start: 10-15-2024 End: 10-15-2024 Telephone encounter Melia Mantilla [employer] Work Phone: [facility] Start: 09-24-2024 End: 09-24-2024 Telephone encounter Melia Costachol [employer] Work Phone: [facility] Start: 09-03-2024 End: 09-03-2024 Bamboo flowsheet Melia Costachol [employer] Work Phone: [facility] Start: 09-03-2024 End: 09-03-2024 Bamboo flowsheet Melia Costachol [employer] Work Phone: [facility] Start: 09-03-2024 End: 09-03-2024 ambulatory MELIA MANTILLA Not Available Start: 09-03-2024 End: 09-03-2024 Office outpatient visit 25 minutes Melia Mantilla [employer] Work Phone: [facility] Comment on above: Chronic midline low back pain without sciatica (Primary Dx); Lumbar radiculopathy Start: 08-28-2024 End: 08-28-2024 Telephone encounter Melia Mantilla [employer] Work Phone: [facility] Start: 08-23-2024 End: 08-23-2024 ambulatory Melia Mantilla [employer] Work Phone: [facility] Work Phone: Start: 08-23-2024 End: 08-23-2024 Discharged Recurring Melia Mantilla [employer] Work Phone: [facility] [facility] Start: 07-27-2024 End: 07-27-2024 Bamboo flowsheet Melia Mantilla [employer] Work Phone: [facility] Start: 07-27-2024 End: 07-27-2024 Bamboo flowsheet Melia Mantilla [employer] Work Phone: [facility] Start: 07-27-2024 End: 07-27-2024 ambulatory MELIA MANTILLA Not Available Start: 07-27-2024 End: 07-27-2024 Office outpatient visit 25 minutes Melia Mantilla [employer] Work Phone: [facility] Comment on above: 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); Person consulting for explanation of examination or test finding; Bilateral sacroiliitis (CMS/HCC) Start: 07-25-2024 End: 07-25-2024 Patient encounter procedure [employer] Melia Mantilla Work Phone: [facility] Work Phone: Start: 07-25-2024 End: 07-25-2024 ambulatory [employer] Melia Mantilla Work Phone: [facility] Work Phone: Start: 07-25-2024 Encounter for genera l adult medical examination without abnormal findings Melia Mantilla [facility] Start: 06-18-2024 End: 06-18-2024 Office outpatient visit 25 minutes Melia Mantilla [employer] Work Phone: [facility] Comment on above: Adult general medica l examination (Primary Dx); Muscle cramping; Bilateral sacroiliitis (CMS/HCC); Left lumbar radiculopathy; 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-sided sciatica Start: 06-18-2024 End: 06-18-2024 Patient encounter status Melia Mantilla [employer] Work Phone: [facility] Start: 06-18-2024 End: 06-18-2024 ambulatory MELIA MANTILLA Not Available Start: 06-18-2024 End: 06-18-2024 Bamboo flowsheet Melia Mantilla [employer] Work Phone: [facility] Start: 06-18-2024 End: 06-18-2024 Bamboo flowsheet Melia Mantilla [employer] Work Phone: [facility] Start: 11-14-2023 End: 11-14-2023 ambulatory MELIA POTTER Not Available Start: 11-04-2023 End: 11-04-2023 ambulatory MD Joe Rosenberg Work Phone: [facility] Work Phone: Start: 11-04-2023 End: 11-04-2023 Departed Referred MD Joe Rosenberg Work Phone: [facility] Start: 11-03-2023 Clinisync Result Encounter Hue Flores DO Work Phone: [facility] Unsolicited Start: 11-03-2023 Clinisync Result Encounter Hue Flores DO Work Phone: [facility] Unsolicited Start: 01-10-2023 End: 01-11-[address] JOE ROSENBERG . Facility:[facility] Start: 11-12-2022 End: 11-12-[address] HUE FLORES . Facility:[facility] Start: 11-05-2022 Encounter for other preprocedural examination DR HUE FLORES . [facility] Start: 11-01-2022 End: 11-02-[address] HUE [...] patient visit MD Joe Rosenberg Work Phone: [facility] Start: 11-16-2021 End: 11-16-2021 Patient encounter procedure MD Joe Rosenberg Work Phone: [facility] Swab Procedures Date Procedure Procedure Detail Performing Clinician Start: 10-22-2024 Urine test visual color cmprsn meths Melia DODSON Work Phone: Start: 07-25-2024 Plain X-ray of sacro iliac joint [employer] Melia Mantilla Work Phone: Start: 07-25-2024 X-ray of lumbar spin e, two or three views [employer] Melia Mantilla Work Phone: Start: 11-03-2023 [facility] Hue Fazi o DO Work Phone: Start: 11-16-2021 SARS Antigen (LFIA) MD Joe Rosenberg Work Phone: Plan of Treatment Date Care Activity Detail Author Start: 12-25-2024 Influenza vaccination Influenza Vacc ine (#1) [facility] Comment on above: Postponed from 05/20 (Patient Refused) Start: 11-21-2024 End: 11-21-2024 Patient encounter procedure 11/21/2024 1:00 PM EST Office Visit [facility] [address] [place] [address] Melia Potter PA [address] [place] [address] [facility] Start: 11-12-2024 End: 11-12-2025 MR Lumbar spine WO contrast MR lumbar spine wo contrast Imaging Routine 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-sided sciatica Left lumbar radiculopathy Expected: 11/12/2024, Expires: 11/12/2025 [facility] Work Phone: Comment on above: Expected: 11/12/2024 , Expires: 11/12/2025 Start: 11-06-2024 End: 11-06-2024 Professional / ancillary services management 11/06/2024 1:00 PM EST Ancillary Procedure [facility] [address] [place] [place] [phone] [facility] Start: 10-22-2024 End: 10-22-2025 US Pelvis US Pelvis w/ TV Imaging Routine Abdominal cramping Cyst of left ovary Expected: 10/22/2024, Expires: 10/22/2025 [facility] Work Phone: Comment on above: Expected: 10/22/2024 , Expires: 10/22/2025 Start: 09-21-2024 Influenza vaccination Influenza Vacc ine (#1) [facility] Comment on above: Postponed from 05/20 (Patient Refused) Start: 09-03-2024 End: 09-03-2024 Patient encounter procedure 09/03/2024 10:20 AM EST Office Visit [facility] [address] [place] [phone] Melia Mantilla, [employer] [address] [place] [address] [facility] Start: 07-02-2024 End: 07-02-2024 Patient encounter procedure 07/02/2024 2:40 PM EDT Office Visit [facility] [address] [place] [phone] Melia Mantilla, [employer] [address] [place] [address] [facility] Start: 06-18-2024 End: 06-18-2024 Patient encounter procedure 06/18/2024 2:20 PM EDT Office Visit [facility] [address] [place] [phone] Melia Matnilla, [employer] [address] [place] [address] Arrived [facility] Comment on above: Arrived Start: 05-20-2024 Influenza vaccination Influenza Vacc ine (#1) [facility] CBC W Auto Different ial panel - Blood CBC auto differential Lab Routine Adult general medical examination Ordered: 06/18/2024 [facility] Comment on above: Ordered: 06/18/2024 Comprehensive metabo lic 2000 panel - Serum or Plasma Comprehensive metabolic panel Lab Routine Adult general medical examination Ordered: 06/18/2024 [facility] Comment on above: Ordered: 06/18/2024 Magnesium [Mass/volu me] in Serum or Plasma Magnesium Lab Routine Muscle cramping Ordered: 06/18/2024 [facility] Comment on above: Ordered: 06/18/2024 MR Lumbar spine WO contrast MR lumbar spine wo contrast Imaging Routine Chronic midline low back pain without sciatica Lumbar radiculopathy Ordered: 09/03/2024 [facility] Work Phone: Comment on above: Ordered: 09/03/2024 Patient Education [facility] Work Phone: Patient referral [facility] Work Phone: XR Lumbar spine 2 or 3 Views XR lumbar spine 2 or 3 views Imaging Routine Left lumbar radiculopathy 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-sided sciatica Ordered: 06/18/2024 [facility] Work Phone: Comment on above: Ordered: 06/18/2024 XR Sacroiliac Joint 3 Views XR sacroiliac joints 3+ views Imaging Routine Left lumbar radiculopathy 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-sided sciatica Ordered: 06/18/2024 [facility] Comment on above: Ordered: 06/18/2024 Immunizations Immunization Date Immunization Notes Care Provider [facility] 06-22-2021 meningococcal oligosaccharide (groups A, C, Y and W-135) diphtheria toxoid conjugate vaccine (MCV4O) Melia Mantilla [employer] Work Phone: [facility] 05-04-2016 meningococcal polysaccharide (groups A, C, Y and W-135) diphtheria toxoid conjugate vaccine (MCV4P) Melia Mantilla [employer] Work Phone: [facility] 05-04-2016 tetanus toxoid, redu jimenez diphtheria toxoid, and acellular pertussis vaccine, adsorbed Melia Mantilla [employer] Work Phone: [facility] 03-06-2009 diphtheria, tetanus toxoids and acellular pertussis vaccine, unspecified formulation Melia Warchol [employer] Work Phone: [facility] 03-06-2009 hepatitis A vaccine, pediatric/adolescent dosage, 2 dose schedule Melia Warchol [employer] Work Phone: [facility] 03-06-2009 measles, mumps and r ubella virus vaccine Melia Warchol [employer] Work Phone: [facility] 03-06-2009 poliovirus vaccine, inactivated Melia Warchol [employer] Work Phone: [facility] 03-06-2009 varicella virus vaccine Melia Warchol [employer] Work Phone: [facility] 01-06-2007 diphtheria, tetanus toxoids and acellular pertussis vaccine, unspecified formulation Melia Warchol [employer] Work Phone: [facility] 01-06-2007 haemophilus influenz ae type b vaccine, PRP-T conjugate Melia Warchol [employer] Work Phone: [facility] 01-06-2007 hepatitis A vaccine, pediatric/adolescent dosage, 2 dose schedule Melia Warchol [employer] Work Phone: [facility] 01-06-2007 measles, mumps, rube lla, and varicella virus vaccine Melia Warchol [employer] Work Phone: [facility] 01-06-2007 pneumococcal conjuga te vaccine, 7 valent Melia Warchol [employer] Work Phone: [facility] 05-22-2004 diphtheria, tetanus toxoids and acellular pertussis vaccine, unspecified formulation Melia Warchol [employer] Work Phone: [facility] 05-22-2004 haemophilus influenz ae type b vaccine, PRP-T conjugate Melia Warchol [employer] Work Phone: [facility] 05-22-2004 hepatitis B vaccine, pediatric or pediatric/adolescent dosage Melia Warchol [employer] Work Phone: [facility] 05-22-2004 pneumococcal conjuga te vaccine, 7 valent Melia Warchol [employer] Work Phone: [facility] 05-22-2004 poliovirus vaccine, inactivated Melia Warchol [employer] Work Phone: [facility] 03-05-2004 diphtheria, tetanus toxoids and acellular pertussis vaccine, unspecified formulation Melia Warchol [employer] Work Phone: [facility] 03-05-2004 haemophilus influenz ae type b vaccine, PRP-T conjugate Melia Warchol [employer] Work Phone: [facility] 03-05-2004 hepatitis B vaccine, pediatric or pediatric/adolescent dosage Melia Warchol [employer] Work Phone: [facility] 03-05-2004 pneumococcal conjuga te vaccine, 7 valent Melia Warchol [employer] Work Phone: [facility] 03-05-2004 poliovirus vaccine, inactivated Melia Warchol [employer] Work Phone: [facility] 2003 diphtheria, tetanus toxoids and acellular pertussis vaccine, unspecified formulation Melia Warchol [employer] Work Phone: [facility] 2003 haemophilus influenz ae type b vaccine, PRP-T conjugate Melia Warchol [employer] Work Phone: [facility] 2003 hepatitis B vaccine, pediatric or pediatric/adolescent dosage Melia Warchol [employer] Work Phone: [facility] 2003 poliovirus vaccine, inactivated Melia Warchol [employer] Work Phone: [facility] Payers Date Payer Category Payer Medicaid (Managed Care) [employer] [id number] 2023 Self-pay [id number] 2023 Medicaid [id number] 2003 Unknown [id number] [id number]. 593 2003 Unknown [id number] 2.16.840.1.057590.3.579.2. 593 2003 Unknown [id number] 2.16.840.1.989321.3.579.2. 593 2003 Unknown [id number] 2.16.840.1.055410.3.579.2. 593 2003 Unknown [id number] 2.16.840.1.241835.3.579.2. 593 2003 Unknown [id number] 2.16.840.1.144047.3.579.2. 593 2003 Unknown [id number] 2.16.840.1.706656.3.579.2. 593 2003 Unknown [id number] 2.16.840.1.211295.3.579.2. 1259 2003 Unknown [id number] 2.16.840.1.528453.3.579.2. 1259 2003 Unknown [id number] 2.16.840.1.782742.3.579.2. 1259 2003 Unknown [id number] 2.16.840.1.475930.3.579.2. 1259 2003 Unknown [id number] 2.16.840.1.868651.3.579.2. 1259 2003 Unknown [id number] 2.16.840.1.020982.3.579.2. 1259 1959 Medicaid [id number] Unknown [id number] 2.16.840.1.464773.3.579.2. 531 Unknown [id number]. 531 Unknown [id number]. 531 Unknown [id number]. 531 Social History Date Type Detail Facility Start: 02-07-2022 End: 10-04-2023 Tobacco smoking status NHIS Never smoked tobacco (finding) [facility] Start: 2003 Sex Assigned At Female F [facility] Start: 10-04-2023 Tobacco use and exposure Smoke less tobacco non-user [facility] Start: 10-19-2023 End: 10-22-2024 Alcohol intake Lifetime non-drinker (finding) [facility] Start: 10-19-2023 End: 06-18-2024 History of Social function [facility] Start: 10-19-2023 End: 06-18-2024 Tobacco use panel [facility] Start: 2003 Sex Assigned At Not on file [facility] How often do you nee d to have someone help you when you read instructions, pamphlets, or other written material from your doctor or pharmacy [SILS] Never [facility] Do you belong to any clubs or organizations such as buddhist groups, unions, fraternal or athletic groups, or school groups? No [facility] Are you now , , , , never or living with a partner? Living with partner [facility] How often to you hav e a drink containing alcohol? Never [facility] How hard is it for y ou to pay for the very basics like food, housing, medical care, and heating Hard [facility] Do you feel stress - tense, restless, nervous, or anxious, or unable to sleep at night because your mind is troubled all the time - these days [OSQ] Rather much [facility] (I/We) worried wheth er (my/our) food would run out before (I/we) got money to buy more. Never true [facility] Start: 10-16-2024 End: 10-18-2024 Sex Female (finding) [facility] Start: 10-17-2024 Tobacco smoking stat us NHIS Smoker (finding) [facility] NEGATED: Highlighted row [facility] Clinical Notes 11-12-2022 to 11-12-2024 Telephone Encounter - Melia Mantilla NP - 11/12/2024 8:47 AM ESTTelephone Encounter - Melia Mantilla NP - 11/12/2024 8:47 AM ESTTelephone Encounter - AME MAY - 11/09/2024 10:38 AM EST Note Date & Type Note Facility 11-12-2024 Telephone encounter Note New order sent [facility] 11-12-2024 Miscellaneous Notes New order sent Insurance denied MRI due to them wanting PT done first, patient completed PT as of 10/16/24 & Dr go office is wanting us to appeal the MRI we ordered- MRI for Lumbar documented in this encounter [facility] 11-09-2024 Telephone encounter Note Insurance denied MRI due to them wanting PT done first, patient completed PT as of 10/16/24 & Dr go office is wanting us to appeal the MRI we ordered- MRI for Lumbar [facility] 10-22-2024 History of Presen t illness Narrative Reason for Appointment: Patient ID: So Dorman is a 19 y.o. female who presents for Ovarian Cyst Patient presents today for Acute Visit. MEDICATIONS Current Outpatient Medications Medication Instructions gabapentin (NEURONTIN) 300 mg, Oral, 3 times daily ALLERGIES No Known Allergies PROBLEMS Active Ambulatory Problems Diagnosis Date Noted Encounter for surgical counseling 10/03/2023 Resolved Ambulatory Problems Diagnosis Date Noted No Resolved Ambulatory Problems Past Medical History: Diagnosis Date At low risk for fall control counseling Encounter for gynecological examination (general) (routine) without abnormal findings Negative test HISTORY PAST MEDICAL HISTORY SOCIAL HISTORY Past Medical History: Diagnosis Date At low risk for fall control counseling Encounter for gynecological examination (general) (routine) without abnormal findings Negative test Social History Tobacco Use Smoking status: Never Smokeless tobacco: Never Substance Use Topics Alcohol use: Never Drug use: Never FAMILY HISTORY Family History Problem Relation Name Age of Onset Mental illness Mother Mental illness Father Diabetes Paternal Grandmother Cancer Paternal Grandmother Diabetes Paternal Grandfather SURGICAL HISTORY Past Surgical History: Procedure Laterality Date LAPAROSCOPY DIAGNOSTIC / BIOPSY / ASPIRATION / LYSIS 11/12/2022 Dx lap w/left ovarian cystotomy LAPAROSCOPY DIAGNOSTIC / BIOPSY / ASPIRATION / LYSIS 11/04/2023 OTHER SURGICAL HISTORY 2009 dental work REVIEW OF SYSTEMS Review of Systems: Review of Systems Constitutional: Negative. HENT: Negative. Eyes: Negative. Respiratory: Negative. Cardiovascular: Negative. Gastrointestinal: Positive for abdominal pain. Genitourinary: Negative. Musculoskeletal: Negative. Skin: Negative. Neurological: Negative. All other systems reviewed and are negative. Hematological: Negative. Endocrine: Negative. Allergic/Immunologic: Negative. OBJECTIVE Objective: Physical Exam Constitutional: Appearance: Normal appearance. She is normal weight. HENT: Head: Normocephalic. Cardiovascular: Rate and Rhythm: Normal rate. Pulses: Normal pulses. Pulmonary: Effort: Pulmonary effort is normal. Breath sounds: Normal breath sounds. Abdominal: Palpations: Abdomen is soft. Musculoskeletal: General: Normal range of motion. Neurological: General: No focal deficit present. Mental Status: She is alert and oriented to person, place, and time. Psychiatric: Mood and Affect: Mood normal. Behavior: Behavior normal. Thought Content: Thought content normal. Judgment: Judgment normal. Vitals and nursing note reviewed. Vitals: Estimated body mass index is 26.06 kg/m as calculated from the following: Height as of 09/03/24: 5' 4 . Weight as of this encounter: 151 lb 12.8 oz. BP: 110/80 No LMP recorded. ASSESSMENT & PLAN ICD-10-CM 1. Abdominal cramping R10.9 US Pelvis w/ TV POCT , urine manually resulted 2. Cyst of left ovary N83.202 US Pelvis w/ TV POCT , urine manually resulted Patient presents for pain and cramping to left lower quadrant. Pt has history of large cyst to the left ovary with removal of cysts. Patient states she now has similar pain. We will order a repeat US and follow up with DR Flores as patient also wants to discuss fertility. Documented by IVORY Wills on behalf of: IVORY Wills documented in this encounter [facility] 10-15-2024 Telephone encounter Note MRI was denied. Patient states she is still having terrible pain in her back that seems to be worsening. Discussed pain management referral [facility] 10-15-2024 Miscellaneous Notes MRI was denied. Patient states she is still having terrible pain in her back that seems to be worsening. Discussed pain management referral documented in this encounter [facility] 09-24-2024 Telephone encounter Note Sent [facility] 09-24-2024 Miscellaneous Notes Sent documented in this encounter [facility] 09-03-2024 History of Presen t illness Narrative SUBJECTIVE So Dorman is a 18 y.o. female who presents for a follow-up regarding back pain. Patient completed lumbar and SI joint XRs in July which were unremarkable. Patient was given steroids and gabapentin which she does not feel helped her symptoms at all. She has been undergoing physical therapy since 08/08/24 in which she feels it is exacerbating her symptoms. It is my professional opinion that patient should stop physical therapy at this time until further evaluation with MRI is completed. Patient states that the increased dosing of gabapentin has decreased her pain from 10/10 to 7/10. She currently complaints of lumbar midline pain with associated numbness, tingling, and weakness in the right leg. CURRENT MEDICATIONS Current Outpatient Medications: gabapentin (Neurontin) 300 MG capsule, Take 1 capsule (300 mg) by mouth in the morning and 1 capsule (300 mg) in the evening and 1 capsule (300 mg) before bedtime., Disp: 90 capsule, Rfl: 0 RECENT VITAL SIGNS 10/19/2022 12:00 PM 11/17/2022 12:00 PM 10/19/2023 11:12 AM 11/14/2023 3:59 PM 06/18/2024 2:33 PM 07/27/2024 10:31 AM 09/03/2024 10:32 AM Vitals BMI 27.12 kg/m2 27.46 kg/m2 26.57 kg/m2 26.75 kg/m2 25.45 kg/m2 25.05 kg/m2 26.02 kg/m2 BSA (m2) 1.76 m2 1.77 m2 1.74 m2 1.74 m2 1.76 m2 1.75 m2 1.76 m2 Systolic 102 120 122 120 138 136 118 Diastolic 68 70 70 70 80 80 64 Heart Rate 87 90 87 SpO2 100 % 98 % 99 % Temp 98.2 F 97.2 F Resp 18 18 Height (in) 5' 3 5' 3 5' 4.5 5' 4.5 5' 4 Weight (lb) 153.12 155 150 151 150.6 148.2 151.6 Visit Report Report Report Report Report Report RECENT LABS Recent Results (from the past 6 weeks) Magnesium Collection Time: 07/25/24 1:53 PM Result Value Ref Range MAGNESIUM 1.9 1.9 - 2.7 mg/dL CBC auto differential Collection Time: 07/25/24 1:53 PM Result Value Ref Range WBC 6.7 3.8 - 11.6 10*3/uL UNCORRECTED WHITE BLOOD COUNT 6.7 3.8 - 11.6 10*3/uL RBC 4.85 3.60 - 5.00 HEMOGLOBIN 14.1 11.8 - 15.4 g/dL HEMATOCRIT 41.7 34.0 - 46.4 % MCV 86.1 80 - 100 fL MCH 29.1 24.7 - 34.3 pg MCHC 33.8 32.0 - 35.0 g/dL RED CELL DISTRIBUTION WIDTH, RDW 13.8 11.9 - 15.3 % PLATELET COUNT 280 150 - 450 10*3/uL MEAN PLATELET VOLUME, MPV 7.8 6.3 - 10.7 fL NEUTROPHILS, % 56.4 . % LYMPHOCYTES, % 35.2 . % MONOCYTE/MACROPHAGE, % 7.2 . % EOSINOPHILS, % 0.7 . % BASOPHILS, % 0.5 . % NRBC 0.1 0 - 0.5 /100[WBC] NEUTROPHILS 3.8 1.8 - 7.7 10*3/uL LYMPHOCYTES 2.3 1.00 - 4.8 10*3/uL MONOCYTES 0.5 0.0 - 0.8 10*3/uL EOSINOPHILS 0.0 0.0 - 0.45 10*3/uL BASOPHILS 0.0 0.0 - 0.2 10*3/uL Comprehensive metabolic panel Collection Time: 07/25/24 1:53 PM Result Value Ref Range Glucose 91 70 - 100 mg/dL BUN 11 7 - 25 mg/dL CREATININE 0.81 0.60 - 1.20 mg/dL ESTIMATED GFR > 60.0 Sodium 143 136 - 145 mmol/L Potassium, Bld 4.1 3.5 - 5.1 mmol/L Chloride 108 (H) 98 - 107 mmol/L Carbon Dioxide 31.2 (H) 21.0 - 31.0 mmol/L Anion Gap 7.9 6.0 - 15.0 Calcium 9.7 8.6 - 10.3 mg/dL TOTAL PROTEIN 6.5 6.4 - 8.9 g/dL ALBUMIN LEVEL 4.4 3.5 - 5.7 g/dL GLOBULIN 2.1 g/dL ALBUMIN/GLOBULIN RATIO 2.1 BILIRUBIN,TOTAL 0.4 0.3 - 1.0 mg/dL ASPARTATE AMINO TRANSFERASE 10 (L) 13 - 39 U/L ALANINE AMINOTRANSFERASE 9 7 - 52 U/L ALKALINE PHOSPHATASE 42 34 - 104 U/L OBJECTIVE Physical Exam Vitals and nursing note reviewed. Constitutional: Appearance: Normal appearance. She is normal weight. HENT: Head: Normocephalic and atraumatic. Right Ear: Tympanic membrane, ear canal and external ear normal. Left Ear: Tympanic membrane, ear canal and external ear normal. Nose: Nose normal. Mouth/Throat: Mouth: Mucous membranes are moist. Eyes: Pupils: Pupils are equal, round, and reactive to light. Cardiovascular: Rate and Rhythm: Normal rate and regular rhythm. Pulses: Normal pulses. Heart sounds: Normal heart sounds. Pulmonary: Effort: Pulmonary effort is normal. Breath sounds: Normal breath sounds. Abdominal: General: Bowel sounds are normal. Palpations: Abdomen is soft. Musculoskeletal: General: Normal range of motion. Cervical back: Normal range of motion. Comments: Pain with palpation to lumbar spine. Decreased ROM related to pain. Positive straight leg test right leg. Skin: General: Skin is warm and dry. Capillary Refill: Capillary refill takes less than 2 seconds. Neurological: General: No focal deficit present. Mental Status: She is alert and oriented to person, place, and time. Psychiatric: Mood and Affect: Mood normal. ASSESSMENT/PLAN Diagnoses and all orders for this visit: Chronic midline low back pain without sciatica - MR lumbar spine wo contrast Lumbar radiculopathy - MR lumbar spine wo contrast FOLLOW-UP Follow up in about 2 weeks (around 09/17/2024) for Next scheduled follow-up review MRI. documented in this encounter [facility] 09-03-2024 Instructions Melia Mantilla NP - 09/03/2024 10:20 AM EST PATIENT EDUCATION: Low back pain Encouraged to follow up with meds, heat/ice, and exercises as provided. Encouraged to avoid strenuous activities that may worsen symptoms but continue with being physically active. Avoid laying/sitting for long periods of time as this will worsen muscle aches/spasms and back pain. Encouraged to use stretching. Core strengthening and proper lifting mechanics ar important. Complete imaging if ordered. Notify office or go to ER if saddle paresthesia presents or if patient develop difficulties voiding, passing stool, or new onset incontinence. [place] reviewed as necessary for use of controlled substances. documented in this encounter [facility] 08-28-2024 Telephone encounter Note sent [facility] 08-28-2024 Miscellaneous Notes sent documented in this encounter [facility] 07-27-2024 History of Presen t illness Narrative SUBJECTIVE So Dorman is a 18 y.o. female who presents for a follow up regarding back pain. Patient recently completed labs and Xrs which were discussed during today's visit. At her last visit, she was given steroids and was instructed to stretch. Patient states there is no change to her pain. She continues to have complaints of lower back pain with radiation of pain, numbness, and tingling into bilateral legs. Currently rates pain 9.5/10. She feels that the steroids mildly improved her symptoms, but they returned immediately upon stopping the medications. She is willing to try physical therapy. CURRENT MEDICATIONS Current Outpatient Medications: gabapentin (Neurontin) 100 MG capsule, Take 1 capsule (100 mg) by mouth in the morning and 1 capsule (100 mg) in the evening and 1 capsule (100 mg) before bedtime., Disp: 90 capsule, Rfl: 0 RECENT VITAL SIGNS 10/04/2022 12:00 PM 10/19/2022 12:00 PM 11/17/2022 12:00 PM 10/19/2023 11:12 AM 11/14/2023 3:59 PM 06/18/2024 2:33 PM 07/27/2024 10:31 AM Vitals BMI 27.63 kg/m2 27.12 kg/m2 27.46 kg/m2 26.57 kg/m2 26.75 kg/m2 25.45 kg/m2 25.05 kg/m2 BSA (m2) 1.77 m2 1.76 m2 1.77 m2 1.74 m2 1.74 m2 1.76 m2 1.75 m2 Systolic 130 102 120 122 120 138 136 Diastolic 80 68 70 70 70 80 80 Heart Rate 87 90 SpO2 100 % 98 % Temp 98.2 F Resp 18 18 Height (in) 5' 3 5' 3 5' 3 5' 4.5 5' 4.5 Weight (lb) 156 153.12 155 150 151 150.6 148.2 Visit Report Report Report Report Report RECENT LABS Recent Results (from the past 6 weeks) Magnesium Collection Time: 07/25/24 1:53 PM Result Value Ref Range MAGNESIUM 1.9 1.9 - 2.7 mg/dL CBC auto differential Collection Time: 07/25/24 1:53 PM Result Value Ref Range WBC 6.7 3.8 - 11.6 10*3/uL UNCORRECTED WHITE BLOOD COUNT 6.7 3.8 - 11.6 10*3/uL RBC 4.85 3.60 - 5.00 HEMOGLOBIN 14.1 11.8 - 15.4 g/dL HEMATOCRIT 41.7 34.0 - 46.4 % MCV 86.1 80 - 100 fL MCH 29.1 24.7 - 34.3 pg MCHC 33.8 32.0 - 35.0 g/dL RED CELL DISTRIBUTION WIDTH, RDW 13.8 11.9 - 15.3 % PLATELET COUNT 280 150 - 450 10*3/uL MEAN PLATELET VOLUME, MPV 7.8 6.3 - 10.7 fL NEUTROPHILS, % 56.4 . % LYMPHOCYTES, % 35.2 . % MONOCYTE/MACROPHAGE, % 7.2 . % EOSINOPHILS, % 0.7 . % BASOPHILS, % 0.5 . % NRBC 0.1 0 - 0.5 /100[WBC] NEUTROPHILS 3.8 1.8 - 7.7 10*3/uL LYMPHOCYTES 2.3 1.00 - 4.8 10*3/uL MONOCYTES 0.5 0.0 - 0.8 10*3/uL EOSINOPHILS 0.0 0.0 - 0.45 10*3/uL BASOPHILS 0.0 0.0 - 0.2 10*3/uL Comprehensive metabolic panel Collection Time: 07/25/24 1:53 PM Result Value Ref Range Glucose 91 70 - 100 mg/dL BUN 11 7 - 25 mg/dL CREATININE 0.81 0.60 - 1.20 mg/dL ESTIMATED GFR > 60.0 Sodium 143 136 - 145 mmol/L Potassium, Bld 4.1 3.5 - 5.1 mmol/L Chloride 108 (H) 98 - 107 mmol/L Carbon Dioxide 31.2 (H) 21.0 - 31.0 mmol/L Anion Gap 7.9 6.0 - 15.0 Calcium 9.7 8.6 - 10.3 mg/dL TOTAL PROTEIN 6.5 6.4 - 8.9 g/dL ALBUMIN LEVEL 4.4 3.5 - 5.7 g/dL GLOBULIN 2.1 g/dL ALBUMIN/GLOBULIN RATIO 2.1 BILIRUBIN,TOTAL 0.4 0.3 - 1.0 mg/dL ASPARTATE AMINO TRANSFERASE 10 (L) 13 - 39 U/L ALANINE AMINOTRANSFERASE 9 7 - 52 U/L ALKALINE PHOSPHATASE 42 34 - 104 U/L OBJECTIVE Physical Exam Vitals and nursing note reviewed. Constitutional: Appearance: Normal appearance. She is normal weight. HENT: Head: Normocephalic and atraumatic. Right Ear: Tympanic membrane, ear canal and external ear normal. Left Ear: Tympanic membrane, ear canal and external ear normal. Nose: Nose normal. Mouth/Throat: Mouth: Mucous membranes are moist. Eyes: Pupils: Pupils are equal, round, and reactive to light. Cardiovascular: Rate and Rhythm: Normal rate and regular rhythm. Pulses: Normal pulses. Heart sounds: Normal heart sounds. Pulmonary: Effort: Pulmonary effort is normal. Breath sounds: Normal breath sounds. Abdominal: General: Bowel sounds are normal. Palpations: Abdomen is soft. Musculoskeletal: General: Normal range of motion. Cervical back: Normal range of motion. Comments: Pain elicited palpation to the medial lumbar spine, bilateral paraspinal area, and bilateral SI joints. Full ROM noted. Negative straight leg test. Skin: General: Skin is warm and dry. Capillary Refill: Capillary refill takes less than 2 seconds. Neurological: General: No focal deficit present. Mental Status: She is alert and oriented to person, place, and time. Psychiatric: Mood and Affect: Mood normal. ASSESSMENT/PLAN Diagnoses and all orders for this visit: Chronic midline low back pain with bilateral sciatica - Ambulatory referral to Physical Therapy; Future - gabapentin (Neurontin) 100 MG capsule; Take 1 capsule (100 mg) by mouth in the morning and 1 capsule (100 mg) in the evening and 1 capsule (100 mg) before bedtime. Person consulting for explanation of examination or test finding Bilateral sacroiliitis (CMS/HCC) - Ambulatory referral to Physical Therapy; Future - gabapentin (Neurontin) 100 MG capsule; Take 1 capsule (100 mg) by mouth in the morning and 1 capsule (100 mg) in the evening and 1 capsule (100 mg) before bedtime. FOLLOW-UP Follow up in about 3 months (around 10/27/2024) for Next scheduled follow-up: back pain . documented in this encounter [facility] 07-27-2024 Instructions Melia Mantilla NP - 07/27/2024 10:20 AM EST PATIENT EDUCATION: Low back pain Encouraged to follow up with meds, heat/ice, and exercises as provided. Encouraged to avoid strenuous activities that may worsen symptoms but continue with being physically active. Avoid laying/sitting for long periods of time as this will worsen muscle aches/spasms and back pain. Encouraged to use stretching. Core strengthening and proper lifting mechanics ar important. Complete imaging if ordered. Notify office or go to ER if saddle paresthesia presents or if patient develop difficulties voiding, passing stool, or new onset incontinence. OARRS reviewed as necessary for use of controlled substances. documented in this encounter [facility] 06-18-2024 History of Presen t illness Narrative SUBJECTIVE So Dorman is a 18 y.o. female who presents as a new patient for an annual wellness exam. Patient also has complaints of low back pain with radiation into both legs. Patient states that he pain is worse on the left side with associated occasional numbness and tingling. She has tried OTC tylenol and Motrin without relief of symptoms. Patient states she was in softball and wrestling in the past. 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 Denies any know injury or falls. CURRENT MEDICATIONS Current Outpatient Medications: predniSONE (Deltasone) 20 MG tablet, Take two tablets (40 mg) daily for five days, then take one tablet (20 mg) daily for five days. Take with food., Disp: 15 tablet, Rfl: 0 RECENT VITAL SIGNS 03/11/2020 12:00 PM 10/04/2022 12:00 PM 10/19/2022 12:00 PM 11/17/2022 12:00 PM 10/19/2023 11:12 AM 11/14/2023 3:59 PM 06/18/2024 2:33 PM Vitals BMI 26.61 kg/m2 27.63 kg/m2 27.12 kg/m2 27.46 kg/m2 26.57 kg/m2 26.75 kg/m2 25.45 kg/m2 BSA (m2) 1.78 m2 1.77 m2 1.76 m2 1.77 m2 1.74 m2 1.74 m2 1.76 m2 Systolic 130 102 120 122 120 138 Diastolic 80 68 70 70 70 80 Heart Rate 87 SpO2 100 % Temp 98.2 F Resp 18 Height (in) 5' 4 5' 3 5' 3 5' 3 5' 4.5 Weight (lb) 155 156 153.12 155 150 151 150.6 Visit Report Report Report Report OBJECTIVE Physical Exam Vitals and nursing note reviewed. Constitutional: Appearance: Normal appearance. She is normal weight. HENT: Head: Normocephalic and atraumatic. Right Ear: Tympanic membrane, ear canal and external ear normal. Left Ear: Tympanic membrane, ear canal and external ear normal. Nose: Nose normal. Mouth/Throat: Mouth: Mucous membranes are moist. Eyes: Pupils: Pupils are equal, round, and reactive to light. Cardiovascular: Rate and Rhythm: Normal rate and regular rhythm. Pulses: Normal pulses. Heart sounds: Normal heart sounds. Pulmonary: Effort: Pulmonary effort is normal. Breath sounds: Normal breath sounds. Abdominal: General: Bowel sounds are normal. Palpations: Abdomen is soft. Musculoskeletal: General: Normal range of motion. Cervical back: Normal range of motion. Comments: Pain elicited with palpation to lunmber spinal area and left SI joint. Skin: General: Skin is warm and dry. Capillary Refill: Capillary refill takes less than 2 seconds. Neurological: General: No focal deficit present. Mental Status: She is alert and oriented to person, place, and time. Psychiatric: Mood and Affect: Mood normal. ASSESSMENT/PLAN Diagnoses and all orders for this visit: Adult general medical examination - CBC auto differential - Comprehensive metabolic panel Muscle cramping - Magnesium Bilateral sacroiliitis (CMS/HCC) Left lumbar radiculopathy - XR lumbar spine 2 or 3 views - XR sacroiliac joints 3+ views - predniSONE (Deltasone) 20 MG tablet; Take two tablets (40 mg) daily for five days, then take one tablet (20 mg) daily for five days. Take with food. 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-sided sciatica - XR lumbar spine 2 or 3 views - XR sacroiliac joints 3+ views - predniSONE (Deltasone) 20 MG tablet; Take two tablets (40 mg) daily for five days, then take one tablet (20 mg) daily for five days. Take with food. FOLLOW-UP Follow up in about 2 weeks (around 07/02/2024) for Next scheduled follow-up. documented in this encounter [facility] 06-18-2024 Instructions Melia Mantilla NP - 06/18/2024 2:20 PM EDT PATIENT EDUCATION: Adult wellness Wellness performed at office visit today. Height, weight, BMI, problem list, and immunizations records reviewed. Encourage annual vision screenings and semi-annual dental care. Encourage to eat a diet that is rich in plant-based foods and lean protein. Encourage regular periods of exercise. Limit or eliminate junk food and sources of excess calories. Encourage to maintain open communication with provider regarding any changes in condition. Encourage 150 minutes of exercise weekly or amount appropriate to current level of function. Identify family/friend/social support and maintaining emotional connections. Follow-up as discussed. Patient verbalized importance of keeping open communication with health care providers. Low back pain Encouraged to follow up with meds, heat/ice, and exercises as provided. Encouraged to avoid strenuous activities that may worsen symptoms but continue with being physically active. Avoid laying/sitting for long periods of time as this will worsen muscle aches/spasms and back pain. Encouraged to use stretching. Core strengthening and proper lifting mechanics ar important. Complete imaging if ordered. Notify office or go to ER if saddle paresthesia presents or if patient develop difficulties voiding, passing stool, or new onset incontinence. OARRS reviewed as necessary for use of controlled substances. documented in this encounter [facility] 01-10-2023 Note PROCEDURE: XR HIPS B IL 5V W PELVIS HISTORY: Pain in thoracic spine ; bilateral hip pain, right greater than left COMPARISON: None. FINDINGS: BONES:No fracture, acute abnormality, or significant arthropathy. SOFT TISSUES:No visible soft tissue swelling. EFFUSION:None visible. OTHER: Negative. IMPRESSION: 1. Normal examination. Electronically authenticated by: JOY CARDOZA Date: 2023-01-10 11:58 [facility] 11-12-2022 Note OP Note OPERATION DATE: 11/12/2022 PROCEDURE: Diagnostic laparoscopy with left ovarian cystotomy with drainage of chocolate cyst with left ovarian cystectomy, lysis of adhesions and fulguration of endometriosis on the patient's right ovary. PREOPERATIVE DIAGNOSIS: Pelvic pain, suspect endometriosis; left ovarian cyst. POSTOPERATIVE DIAGNOSIS: Pelvic pain, suspect endometriosis; left ovarian cyst. ANESTHESIA: General. SURGEON: Hue Flores D.O. OUTBOARD TECHNICIAN: KATHY Max URINE OUTPUT: Yellow and clear. [...] regular diagnostic laparoscopy procedure only.) ? [facility] 11-12-2022 Note OP Note OPERATION DATE: 11/12/2022 PROCEDURE: Diagnostic laparoscopy with left ovarian cystotomy with drainage of chocolate cyst with left ovarian cystectomy, lysis of adhesions and fulguration of endometriosis on the patient's right ovary. PREOPERATIVE DIAGNOSIS: Pelvic pain, suspect endometriosis; left ovarian cyst. POSTOPERATIVE DIAGNOSIS: Pelvic pain, suspect endometriosis; left ovarian cyst. ANESTHESIA: General. SURGEON: Hue Flores D.O. OUTBOARD TECHNICIAN: KATHY Max URINE OUTPUT: Yellow and clear. [...] the regular diagnostic laparoscopy procedure only.) [facility] Evaluation note No assessment inform ation available [facility] Work Phone: Evaluation note Diagnosis Chronic midline low back pain with bilateral sciatica- Primary Person consulting for explanation of examination or test finding Bilateral sacroiliitis (CMS/HCC) [facility] Bilateral sacroiliitis (CMS/HCC) Chronic midline low back pain with bilateral sciatica [facility] Diagnosis Chronic midline low back pain without sciatica- Primary Lumbar radiculopathy Thoracic or lumbosacral neuritis or radiculitis, unspecified [facility] Diagnosis Adult general medical examination- Primary Unspecified general medical examination Muscle cramping Bilateral sacroiliitis (CMS/HCC) Left lumbar radiculopathy Thoracic or lumbosacral neuritis or radiculitis, unspecified 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-sided sciatica [facility] Diagnosis Bilateral sacroiliitis (CMS/HCC) Chronic midline low back pain with bilateral sciatica [facility] Diagnosis Chronic midline low back pain without sciatica- Primary Left lumbar radiculopathy Thoracic or lumbosacral neuritis or radiculitis, unspecified 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-sided sciatica Bilateral sacroiliitis (CMS/HCC) [facility] Diagnosis Abdominal cramping Abdominal pain, unspecified site Cyst of left ovary Other and unspecified ovarian cyst [facility] Diagnosis 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-sided sciatica- Primary Left lumbar radiculopathy Thoracic or lumbosacral neuritis or radiculitis, unspecified [facility] Additional Instructions I am glad that you are feeling better. Your symptoms are likely residual after your vomiting and diarrhea. I will prescribe medicine for nausea and for cramping. If you have any problems or concerns, we are always happy to see you here. I do want you to follow-up with your doctor.[facility] Work Phone: Chief Complaint and Reason for Visit Chief Complaint exposure Abd Pain, Nausea Chief Complaint Unknown Chief Complaint m54.16 m54.42 g89.29 r25.2 z00.0 Chief Complaint Admit Date m54.16 m54.42 g89.29 r25.2 z00.0 Novembe r 2023 1:34pm MK Back Pain August 23, 2024 8 :00am Chief Complaint Admit Date m54.16 m54.42 g89.29 r25.2 z00.0 Novembe r 2023 1:34pm MK Back Pain August 23, 2024 8 :00am stomach pain October 17, 2024 7 :45pm Advance Directives Advance Directive Response Recorded Date/ Time Advance Directives No October 3:55pm Advance Directive Response Recorded Date/ Time Advance Directives No October 2:55pm Summary Purpose Family History No Family History Records FoundNo Family History Records FoundNo Family History Records Found Additional Source Comments Care Teams (unrecognized sec tion and content) Team Status: Active Member Role Status Regan Rosenberg MD Primary Care Provider Active Team Status: Inactive Member Role Status Regan Rosenberg MD Primary Care Provider Active Start: November 04, 2023 End: November 04, 2023 Hue Flores Attending Provider Active Start: Jolie law 2023 End: November 04, 2023 Team Status: Inactive Member Role Status Regan Rosenberg MD Primary Care Provider Active Donta Stewart MD Attending Provider Active Team Status: Inactive Member Role Status Dates Joe Rosenberg MD Primary Care Provider Active Severo Lea MD Emergency Provider Active Stone Cutter Relationship Specialty Start Date End Date Joe Rosenberg MD [address] [place] [address] PCP - General Family Medicine 10/19/23 Team Status: Active Member Role Status Dates VON Wyatt Primary Care Provider Active Team Status: Inactive Member Role Status Dates VON Wyatt Primary Care Provide r, Attending Provider Active Start: July 25, 2024 End: July 25, 2024 Stone Cutter Relationship Specialty Start Date End Date Jigar Grace MD [address] [place] [id number] PCP - General Family Medicine 02/23/24 Melia Mantilla NP [address] [place] [id number] Nurse Practitioner Family Medicine 02/23/24 Lisa Tejada NP [address] [place] [id number] Nurse Practitioner Family Medicine 02/23/24 Stone Cutter Relationship Specialty Start Date End Date Jigar Grace MD [address] [place] [id number] PCP - General Family Medicine 02/23/24 Melia Mantilla NP [address] [place] [id number] Nurse Practitioner Family Medicine 02/23/24 Lisa Tejada NP [address] [place] [phone] Nurse Practitioner Family Medicine 02/23/24 Stone Cutter Relationship Specialty Start Date End Date Jigar Grace MD [address] [place] [address] PCP - General Family Medicine 02/23/24 Melia Mantilla GINSENG FARMER [address] [place] [address] Nurse Practitioner Family Medicine 02/23/24 Lisa Tejada NP [address] [place] [address] Nurse Practitioner Family Medicine 02/23/24 Stone Cutter Relationship Specialty Start Date End Date Jigar Grace MD [address] [place] [id number] PCP - General Family Medicine 02/23/24 Melia Mantilla NP [address] [place] [address] Nurse Practitioner Family Medicine 02/23/24 Lisa Tejada NP [address] [place] [phone] Nurse Practitioner Family Medicine 02/23/24 Stone Cutter Relationship Specialty Start Date End Date Jigar Grace MD [address] [place] [address] PCP - General Family Medicine 02/23/24 Melia Mantilla [employer]ER [address] [place] [address] Nurse Practitioner Family Medicine 02/23/24 Lisa Tejada NP [address] [place] [phone] Nurse Practitioner Family Medicine 02/23/24 Stone Cutter Relationship Specialty Start Date End Date Jigar Grace MD [address] [place] [address] PCP - General Family Medicine 02/23/24 Melia Mantilla, G[employer] F[employer]ER [address] [place] [address] Nurse Practitioner Family Medicine 02/23/24 Lisa Tejada NP [address] [place] [phone] Nurse Practitioner Family Medicine 02/23/24 Stone Cutter Relationship Specialty Start Date End Date Jigar Grace MD [address] [place] [id number] PCP - General Family Medicine 02/23/24 Melia Mantilla, [employer]ENG FARMER [address] [place] [address] Nurse Practitioner Family Medicine 02/23/24 Lisa Tejada NP [address] [place] [phone] Nurse Practitioner Family Medicine 02/23/24 Stone Cutter Relationship Specialty Start Date End Date Jigar Grace MD [address] [place] [address] PCP - General Family Medicine 02/23/24 Melia Mantilla NP [address] [place] [address] Nurse Practitioner Family Medicine 02/23/24 Lisa Tejada NP [address] [place] [phone] Nurse Practitioner Family Medicine 02/23/24 Team Status: Inactive Member Role Status Dates VON Wyatt Primary Care Provide r, Attending Provider Active Start: August 23, 2024 End: August 23, 2024 Team Status: Inactive Member Role Status Dates VON Wyatt Primary Care Provider Active Start: October 17, 2024 End: October 18, 2024 López Coburn Jr, MD Emergency Provider Active Start: October 17, 2024 End: October 18, 2024 Stone Cutter Relationship Specialty Start Date End Date Jigar Grace MD [address] [place] [address] PCP - General Family Medicine 02/23/24 Melia Mantilla NP [address] [place] [address] Nurse Practitioner Family Medicine 02/23/24 Lisa Tejada NP [address] [place] [address] Nurse Practitioner Family Medicine 02/23/24 Stone Cutter Relationship Specialty Start Date End Date Jigar Grace MD [address] [place] [address] PCP - General Family Medicine 02/23/24 Melia Mantilla NP [address] [place] [address] PCP - FFS [facility] 09/19/24 Melia Mantilla NP [address] [place] [address] Nurse Practitioner Family Medicine 02/23/24 Lisa Tejada NP [address] [place] [address] Nurse Practitioner Family Medicine 02/23/24 Goals (unrecognized section and content) Goals may be documented in a n alternate sectionGoals may be documented in an alternate sectionGoals may be documented in an alternate sectionGoals may be documented in an alternate sectionGoals may be documented in an alternate section INFORMATION SOURCE (unrecogn ized section and content) DATE CREATED AUTHOR 01/11/2023 [facility] DATE CREATED AUTHOR AUTHOR'S ORGANIZ ATION 10/28/2024 [facility] DATE CREATED AUTHOR AUTHOR'S ORGANIZ ATION 11/08/2024 [facility] EPIC Reason for Visit (unrecogniz ed section and content) Reason Comments Ovarian Cyst FOR RECORDS PERTAINING TO PATIENTS WHO ARE [...] BE BASED ON THE PRIMARY CLINICAL RECORDS. [facility] [employer] [facility]. provides no warranty or guarantee of the accuracy or completeness of information in this document.
[2024-11-24 21:07] LABS: Age Gdln ACOG Testing Note (.); IGP, rfx Aptima HPV ASCU Note (.)
== END 2024-11-21 15:19 | disposition home or self-care (01) ==
LOC: LAB 15:18
PROVIDERS: PCP Family Medicine; Visit Provider Physician Assistant
DX: Z01.419 Encounter for gynecological examination (general) (routine) without abnormal findings (principal)
CPT/HCPCS: 88175

== ENCOUNTER 2024-12-18 07:49 | Outpatient (OUT) | payer OTHER, SELFPAY ==
--- NOTE | 2024-12-18 07:53 | US_ITS ---
The [address] [address] Patient Name: BERENICE LOPEZ MRN: [id number] date: 2005 Sex: F Assigned Patient Location: Current Patient Location: US Accession/Order Number: [id number] Exam Date: 12/18/2024 09:05 Report Date: 12/18/2024 09:16 At the request of: YONIS POTTER Procedure: US pelvis w/ transvaginal ULTRASOUND PELVIS WITH TRANSVAGINAL CLINICAL DATA: Left pelvic pain. History of complex ovarian cyst. COMPARISON: 10/15/2022 Real-time ultrasound evaluation pelvis was performed utilizing both a transabdominal and transvaginal approach. TRANSABDOMINAL: The urinary bladder is empty. The uterus is anteverted. Estimated uterine size is approximately 7.2 x 3.8 x 4.9 cm. No focal myometrial abnormalities are identified. The endometrial lining is not thickened. The right ovary is not identified. The left ovary is seen and there is a cyst. TRANSVAGINAL: Transvaginal imaging was performed to better evaluate the uterus and adnexa. By this approach, the myometrium is unremarkable. The endometrial lining measures 6 - 7 mm. In the transverse plane, there could be a arcuate configuration. Both ovaries are seen. The right ovary measures 5.5 x 1.9 x 2.9 cm. There are small follicles. The left ovary measures 6.1 x 3.2 x 3.8 cm. There are small follicles and a cyst which measures 2.7 x 1.8 x 2.9 cm. A hypoechoic nodular area is also seen within the left ovary measuring 3.2 x 3.2 x 3.3 cm. There is no associated blood flow. It could be a complex/hemorrhagic cyst. The hypoechoic left ovarian lesion at the time of the prior had an associated echogenic (question calcification) focus that is not seen today. There is documentation of ovarian blood flow. No free fluid is identified. US/US pelvis w/ transvaginal IMPRESSION: LEFT OVARIAN CYST AND HYPOECHOIC LESION, POSSIBLY A COMPLEX CYST. Impression dictated by: Mary Gordillo M.D.12/18/2024 9:16 AM Dictation Location: [place] [address] Electronically authenticated by: [id number] Y Date: 12/18/2024 09:16
--- OUTSIDE RECORDS SUMMARY | 2024-12-18 07:56 | XMS_ITS | CCD ---
Author Organization [facility] Care Team Providers Care Edge Polisher Name Role Phone MD Joe Rosenberg Primary Care Provider MD Donta Stewart Attending Provider MD Severo Lea Emergency Provider SANDRA ., DR SWANN Admitting Unavailable SANDRA ., DR SWANN Attending Unavailable HOY ., DR DIAZ Primary Care Unavailable SANDRA ., DR SWANN Admitting Unavailable SANDRA ., DR SWANN Attending Unavailable HOY ., DR DIAZ Primary Care Unavailable SANDRA ., DR SWANN Consulting Unavailable NUSRAT, ANEL Consulting Unavailable MARKIE ARGUELLES Consulting Unavailable FILUTZE, AWILDA Consulting Unavailable KARASIK ., DR FERNANDEZ Admitting Unavailabl e KARASIK ., DR FERNANDEZ Attending Unavailabl e HOY ., DR DIAZ Primary Care Unavailable KARASIK ., DR FERNANDEZ Consulting Unavailabl e SANDRA ., DR SWANN Admitting Unavailable SANDRA ., DR SWANN Attending Unavailable HOY ., DR DIAZ Primary Care Unavailable SANDRA ., DR SWANN Consulting Unavailable SANDRA ., DR SWANN Admitting Unavailable SANDRA ., DR SWANN Attending Unavailable REQUEST, DR ZIMMERMAN LISTED Primary Care Unavaila ble SANDRA ., DR SWANN Consulting Unavailable ZIEBER, DR JOY Coronel Consulting Unavailable SANDRA ., DR SWANN Admitting Unavailable SANDRA ., DR SWANN Attending Unavailable HOY ., DR DIAZ Primary Care Unavailable SANDRA ., DR SWANN Consulting Unavailable HOY ., DR DIAZ Admitting Unavailable HOY ., DR DIAZ Attending Unavailable HOY ., DR DIAZ Primary Care Unavailable HOY ., DR DIAZ Consulting Unavailable JORDYEBSERAFIN, DR JOY Coronel Consulting Unavailable Joe Rosenberg MD Primary Care Provider MD Joe Rosenberg Primary Care Provider Curtis Flores Attending Provider Warchol, CONTROL SYSTEMS TECHNICIAN-C Melia Primary Care Provider Warchol, CONTROL SYSTEMS TECHNICIAN-C Melia Attending Provider Jigar Grace MD Primary Care Provider [place]ol CONTROL SYSTEMS TECHNICIAN, Melia Unavailable Lause CONTROL SYSTEMS TECHNICIAN, Awilda R Unavailable [phone] Warchol CONTROL SYSTEMS TECHNICIAN-C, Melia Primary Care Provider Warchol CONTROL SYSTEMS TECHNICIAN-C, Melia Attending Provider [phone] López Coburn MD Emergency Provider [place]archol CONTROL SYSTEMS TECHNICIAN, Melia Unavailable STACYMELIA Attending Unavailable STACY, MELIA Referring Unavailable STACY, MELIA Attending Unavailable WARCHOL, MELIA Attending Unavailable WARCHOL, MELIA Attending Unavailable WARCHOL, MELIA Attending Unavailable Warchol CONTROL SYSTEMS TECHNICIAN-C, Melia Primary Care Provider [phone] López Coburn MD Emergency Provider Yeaddiss PAMelia Portillo L Attending Provider Warchol CONTROL SYSTEMS TECHNICIAN-C, Melia Attending Provider Warchol, Melia Primary Care Unavailable Warchol, Melia Admitting Unavailable Warchol, Melia Attending Unavailable Warchol, Melia Attending Unavailable Warchol, Melia Primary Care Unavailable Warchol, Melia Admitting Unavailable Warchol, Melia Primary Care Unavailable Yeaddiss, Melia L Attending Unavailable Stacy, Melia L Admitting Unavailable Warchol, Melia Attending Unavailable Warchol, Melia Primary Care Unavailable Warchol, Melia Admitting Unavailable Warchol, Melia Primary Care Unavailable López Coburn Jr Attending Unavailable López Coburn Jr Admitting Unavailable Medications Current Medications Medication Drug Class(es) Dates Sig (Normalized) Sig (Original) diclofenac sodium 75 mg delayed release oral tablet (6 sources) Nonsteroidal Anti-inflammatory Drug Start: 10-29-2024 take 1 tablet by mouth twice daily Diclofenac Sodium 75 mg tablet,delayed release (DR/EC) Active 75 MG PO Twice daily October 29, 2024 1:00am Start: 12-16-2022 End: 06-18-2024 take 1 tablet by mouth in the morning diclofenac (Voltaren) 75 MG EC tablet Take 75 mg by mouth in the morning and 75 mg before bedtime. 12/16/2022 06/18/2024 Discontinued (Therapy completed) ethinyl estradiol 0.035 mg / norgestimate 0.25 mg oral tablet (3 sources) Progestin, Estrogen Start: 11-21-2024 End: 10-23-2025 take 1 tablet by mouth once daily, then take 1 tablet by mouth once daily norgestimate-ethinyl estradiol (Sprintec 28) 0.25-35 MG-MCG tablet Indications: Encounter for initial prescription of contraceptive pills Take 1 tablet by mouth Daily Take 1 tablet by mouth daily 28 tablet 11 11/21/2024 10/23/2025 Active gabapentin 600 mg oral tablet (20 sources) Anti-epileptic Agent Start: 11-22-2024 End: 02-20-2025 take 1 tablet by mouth in the morning, then take 1 tablet by mouth in the evening, then take 1 tablet by mouth at bedtime gabapentin (Neurontin) 600 MG tablet Indications: Bilateral sacroiliitis (CMS/HCC) , Chronic 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 90 tablet 2 11/22/2024 02/20/2025 Active Start: 10-17-2024 take 3 capsules by m outh three times daily Gabapentin 100 mg capsule Active 300 MG PO Three times daily October 17, 2024 1:00am Start: 08-28-2024 End: 12-23-2024 take 1 capsule [...] mg) before bedtime. 90 capsule 2 09/24/2024 11/22/2024 Discontinued (Ineffective) Start: 07-27-2024 End: 08-28-2024 take 1 capsule [...] (Reorder) ondansetron 4 mg disintegrating oral tablet (6 sources) Serotonin-3 Receptor Antagonist Start: 11-21-2024 End: 12-21-2024 take 1 tablet by mouth every six hours as needed for nausea and vomiting and nausea and nausea ondansetron ODT (Zofran-ODT) 4 MG disintegrating tablet Indications: Nausea Take 1 tablet (4 mg) by mouth every 6 (six) hours if needed for nausea or vomiting 30 tablet 2 11/21/2024 12/21/2024 Active Start: 10-17-2024 End: 10-29-2024 take 1 tablet by mouth every eight hours as needed for nausea and vomiting Ondansetron 4 mg tablet,disintegrating Discontinued 4 MG PO Q8H as needed for nausea and vomiting October 17, 2024 1:00am October 29, 2024 10:00am predniSONE 20 mg oral tablet (5 sources) [...] Agonist Start: 11-04-2023 End: 06-18-2024 HYDROcodone-acetam inophen (Aurora) 5-325 MG tablet 11/04/2023 06/18/2024 Discontinued (Therapy completed) dicyclomine hydrochloride 10 mg oral capsule (3 sources) Anticholinergic Start: 10-17-2024 End: 10-29-2024 take 1 capsule by mouth three times daily as needed Dicyclomine 10 mg capsule Discontinued 10 MG PO Three times daily as needed for abdominal discomfort October 17, 2024 1:00am October 29, 2024 10:00am ibuprofen 800 mg oral tablet (4 sources) Nonsteroidal Anti-inflammatory Drug Start: 11-12-2022 End: 06-18-2024 take 1 tablet by mouth every eight hours as needed ibuprofen 800 MG tablet TAKE 1 TABLET BY MOUTH EVERY 8 HOURS NEEDED WITH FOOD 11/12/2022 06/18/2024 Discontinued (Therapy completed) pantoprazole 20 mg delayed release oral tablet (7 sources) Proton Pump Inhibitor Start: 02-07-2022 End: 10-17-2024 take 1 tablet by mouth once daily Pantoprazole (Protonix) 20 mg Tablet,Delayed Release (Dr/Ec) Discontinued 20 MG PO Daily February 07, 2022 12:00am October 17, 2024 8:52pm promethazine hydrochloride 25 mg oral tablet (7 sources) Phenothiazine Start: 02-07-2022 End: 10-17-2024 take 1 tablet by mouth every six hours as needed for nausea Promethazine 25 mg Tablet Discontinued 25 MG PO Q6H as needed for Nausea February 07, 2022 12:00am October 17, 2024 8:52pm triamcinolone acetonide 1 mg/ml topical cream (4 sources) Corticosteroid Start: 12-16-2022 End: 06-18-2024 triamcinolone (Kenalog) 0.1 % cream APPLY SMALL AMOUNT TO SKIN TWICE A DAY 12/16/2022 06/18/2024 Discontinued (Therapy completed) Problems Active Problems Problem Classification Problem Date Documented Date Episodic/Chronic Abdominal pain (16 sources) Abdominal pain; Translations: [Unspecified abdominal pain] Onset: 11-12-2022 02-07-2022 Episodic Comment on above: Problem List clean-u p per request of Phys. EHR Cmte Endometriosis (1 source) Endometriosis; Translations: [ENDOMETRIOSIS BILAT OVARY UNS DEPTH] Onset: 11-24-2022 Gastritis and duodenitis (7 sources) Gastritis; Translations: [Gastritis, unspecified, without bleeding] 02-07-2022 Episodic Comment on above: Problem List clean-u p per request of Phys. EHR Cmte Menstrual disorders (1 source) Irregular menstruation, unspecified; Translations: [IRREGULAR MENSTRUATION UNSPECIFIED] Onset: 11-05-2022 Chronic Nausea and vomiting (6 sources) Nausea, vomiting and diarrhea; Translations: [Nausea [...] Onset: 10-19-2022 Episodic Other nervous system disorders (2 sources) Chronic pain; Translations: [Other chronic pain] 10-29-2024 Chronic Other nervous system disorders (3 sources) Other chronic pain; Translations: [Other chronic pain] Onset: 07-25-2024 10-29-2024 Chronic Ovarian cyst (7 sources) Cyst of left ovary; Translations: [Unspecified ovarian cyst, left side] Onset: 11-20-2024 10-22-2024 Episodic Spondylosis; intervertebral disc disorders; other back problems (16 sources) Bilateral inflammation of sacroiliac joint; Translations: [Sacroiliitis, not elsewhere classified] Onset: 08-23-2024 07-27-2024 Chronic Unclassified (2 sources) Finding of sensation of abdomen 10-22-2024 Past or Other Problems Problem Classification Problem Date Documented Da te Episodic/Chronic Administrative/social admission (20 sources) Patient encounter status; Translations: [Other specified counseling] Onset: 10-03-2023 10-03-2023 Episodic Other connective tissue disease (1 source) Cramp and spasm; Translations: [Cramp and spasm] Onset: 07-25-2024 Episodic Other screening for suspected conditions (not mental disorders or infectious disease) (4 sources) Encounter for screening for malignant neoplasm of cervix; Translations: [ENC SCREENING MALIG NEOPLASM CERV] Onset: 05-04-2022 Episodic Spondylosis; intervertebral disc disorders; other back problems (20 sources) Chronic low back pain; Translations: [Lumbago with sciatica, right side] Onset: 07-25-2024 07-27-2024 Episodic Results Test Name Value Interpretation Reference Range Facility MR lumbar spine wo conon MR lumbar spine wo con [facility] Main [place] [address] [place] [address] MRI Report Signed Patient: So Dorman MR#: [id number] 2 : 2005 Acct:[id number] Age/Sex: 19 / F ADM Date: 12/12/24 Loc: [facility] Room: Type: [facility] Attending Dr: Melia Mantilla CONTROL SYSTEMS TECHNICIAN-C Copies to: Melia Mantilla CNP Ordering Provider: Melia Mantilla CNP Date of Service: 12/12/24 MR/MR lumbar spine wo con: low back pain MRI LUMBAR SPINE PERFORMED WITHOUT CONTRAST INDICATION: Left hip pain radiating to upper back, chronic left-sided low back pain with left-sided sciatica, left lumbar radiculopathy Comparison: Lumbar spine x-rays 07/25/2024: Findings: Lumbar vertebral heights and alignment maintained. There is mild levocurvature of the lumbar spine. Mild multilevel facet arthropathy greatest lower spine. Small Schmorl's node deformities L3-L4. Mild disc space narrowing L5-S1. Severe disc space narrowing T11-T12. The conus medullaris terminates normally at L1-L2. Paraspinal soft tissues are unremarkable. T11-T12: Only evaluated on the sagittal images. There is suggestion of a central bulge at this level which indents the ventral thecal sac. Mild left-sided neural foraminal narrowing. T12-L1: Unremarkable. L1-2: Facet arthropathy. Otherwise unremarkable L2-3: Minor broad-based disc bulge. Mild facet arthropathy. Mild neural foraminal narrowing. Canal is grossly patent. L3-4: Circumferential bulge. Mild facet arthropathy. Mild ventral canal effacement/mild central canal narrowing.. Minimal foraminal narrowing. L4-5: Circumferential disc bulge with tkwa-sf-rpevzyxe facet arthropathy. Fovz-lk-trblndxi left- sided mild right-sided neural foraminal narrowing. Mild canal stenosis. L5-S1: Circumferential disc bulge with broad base disc protrusion extending caudally 4 mm with associated transversely oriented annular fissure. This effaces the right subarticular zone and appears to contact the right S1 nerve root and possibly the left S1 nerve root as well. Moderate facet arthropathy. Moderate neural foraminal narrowing. MR/MR lumbar spine wo con IMPRESSION: Overall mild degenerative changes notably L5-S1 with central to right paracentral protrusion mildly narrowing the right subarticular zone appearing to contact the right S1 nerve root.. It may contact left S1 nerve root as well. Please correlate with bilateral S1 radiculopathy. Impression dictated by: Olman Rondon M.D.12/12/2024 11:49 AM Dictation Location: [place] [address] Transcribed By: [facility] 12/12/24 1149 Dictated By: Olman Rondon MD 12/12/24 1135 Signed By: 12/12/24 1149 Normal [facility] Magnetic resonance imaging r eportOrdered By: Olman Rondon on 12-12-2024 Study report [facility] [place] [address] MRI Report Signed Patient: So Dorman MR#: [id number] : 2005 Acct:[id number] Age/Sex: 19 / F ADM Date: 5 Loc: [facility] Room: Type: [facility] Attending Dr: Melia Mantilla CONTROL SYSTEMS TECHNICIAN-C Copies to: Melia Mantilla CNP~ Ordering Provider: Melia Mantilla CNP Date of Service: 12/12/24 MR/MR lumbar spine wo con: low back pain MRI LUMBAR SPINE PERFORMED WITHOUT CONTRAST INDICATION: Left hip pain radiating to upper back, chronic left-sided low back pain with left-sided sciatica, left lumbar radiculopathy Comparison: Lumbar spine x-rays 07/25/2024: Findings: Lumbar vertebral heights and alignment maintained. There is mild levocurvature of the lumbar spine. Mild multilevel facet arthropathy greatest lower spine. Small Schmorl's node deformities L3-L4. Mild disc space narrowingL5-S1. Severe disc space narrowing T11-T12. The conus medullaris terminates normally at L1-L2. Paraspinal soft tissues are unremarkable. T11-T12: Only evaluated on the sagittal images. There is suggestion of a central bulge at this level which indents the ventral thecal sac. Mild left-sided neural foraminal narrowing. T12-L1: Unremarkable. L1-2: Facet arthropathy. Otherwise unremarkable L2-3: Minor broad-based disc bulge. Mild facet arthropathy. Mild neural foraminal narrowing. Canal is grossly patent. L3-4: Circumferential bulge. Mild facet arthropathy. Mild ventral canal effacement/mild central canal narrowing.. Minimal foraminal narrowing. L4-5: Circumferential disc bulge with xphs-sb-iywopxds facet arthropathy. Gcmo-ml-npahvfyt left-sided mild right-sided neural foraminal narrowing. Mild canal stenosis. L5-S1: Circumferential disc bulge with broad base disc protrusion extending caudally 4 mm with associated transversely oriented annular fissure. This effaces the right subarticular zone and appears to contact the right S1 nerve root and possibly the left S1 nerve root as well. Moderate facet arthropathy. Moderate neural foraminal narrowing. MR/MR lumbar spine wo con IMPRESSION: Overall mild degenerative changes notably L5-S1 with central to right paracentral protrusion mildly narrowing the right subarticular zone appearing to contact the right S1 nerve root.. It may contact left S1 nerve root as well. Please correlate with bilateral S1 radiculopathy. Impression dictated by: Olman Rondon M.D.12/12/2024 11:49 AM Dictation Location: [place] [address] Transcribed By: [facility] 12/12/24 1149 Dictated By: Olman Rondon MD 12/12/24 1135 Signed By: 12/12/24 1149 [facility] Work Phone: AFP Tumor Marker, Serumon AFP Tumor Marker, Serum 5.7 ng/mL High 0.0-4.7 [facility] Comment on above: Result Comment: [employer] Electrochemiluminescence Immunoassay (ECLIA) Values obtained with different assay methods or kits cannot be used interchangeably. Results cannot be interpreted as absolute evidence of the presence or absence of malignant disease. This test is not interpretable in females. Performed By: #### C EA, HCGQNT #### [place] [address] [place] #### AFPTM, CA125, LDI #### [facility] , CEA ser/plasOrdered By: Melia Mantilla on 11-20-2024 Carcinoembryonic Ag [Mass/Vol] Serum or plasma carcinoembryonic antigen measurement (mass/volume) 0.0-3.0 [facility] Comment on above: Serial tumor marker results determined by assays using different manufacturers or methods may not be comparable.[facility] inventory control assistant and method:Melty UNICRaiing DXI, 2 SITE IMMUNOENZYMATIC SANDWICH ASSAY. Cancer Antigen 125on 025 Cancer Antigen 125 22.2 Normal 0.0-38.1 [facility] Comment on above: Result Comment: [employer] Electrochemiluminescence Immunoassay (ECLIA) Values obtained with different assay methods or kits cannot be used interchangeably. Results cannot be interpreted as absolute evidence of the presence or absence of malignant disease. Performed at: [place] [id number] Analytics Manager: Ced Masters PhD, Phone: [phone] Performed By: #### C EA, HCGQNT #### [address] #### AFPTM, CA125, LDI #### [facility] , Choriogonadotropin.beta subu nit [Units/volume] in Serum or PlasmaOrdered By: Melia Mantilla on 11-20-2024 HCG.beta subunit Qn Choriogonadotropin.b eta subunit [Units/volume] in Serum or Plasma [facility] Comment on above: Approximate Approxim ate hCG Gestational Age Range (mIU/ml) (weeks)0.2-1 5-50 1-2 50-500 2-3 100-5,000 3-4 500-10,000 4-5 1,000-50,000 5-6 10,000-100,000 6-8 15,000-200,000 8-12 10,000-100,000 HCG,Quantitativeon 5 HCG,Quantitative <0.60 Normal [facility] Comment on above: Result Comment: Appr oximate Approximate hCG Gestational Age Range (mIU/ml) (weeks) 0.2-1 5-50 1-2 50-500 2-3 100-5,000 3-4 500-10,000 4-5 1,000-50,000 5-6 10,000-100,000 6-8 15,000-200,000 8-12 10,000-100,000 PERFORMED BY: [place] [address] PATHOLOGIST [employer] OFFICER CORNELIUS MARK M.D. Performed By: #### C EA, HCGQNT #### [address] #### AFPTM, CA125, LDI #### [facility] , LD Isoenzymeson 11-20-2024 LD1 Isoenzyme 24 % Normal 17-32 [facility] Comment on above: Performed By: #### C EA, HCGQNT #### [address] #### AFPTM, CA125, LDI #### [facility] , LD2 Isoenzyme 33 % Normal 25-40 [facility] Comment on above: Performed By: #### C EA, HCGQNT #### [place] [address] [place] #### AFPTM, CA125, LDI #### [facility] , LD3 Isoenzyme 20 % Normal 17-27 [facility] Comment on above: Performed By: #### C EA, HCGQNT #### [place] [address] [place] #### AFPTM, CA125, LDI #### [facility] , LD4 Isoenzyme 12 % Normal 5-13 [facility] Comment on above: Performed By: #### C EA, HCGQNT #### [address] #### AFPTM, CA125, LDI #### [facility] , LD5 Isoenzyme 11 % Normal 4-20 [facility] Comment on above: Result Comment: Perf ormed at: - [facility] [address] [id number] Analytics Manager: Ced Masters PhD, Phone: [phone] Performed at: - [facility] [id number] Analytics Manager: Klever Echevarria MD, Phone: [phone] PERFORMED BY: [place] [address] PATHOLOGIST [employer]PPORT[employer] OFFICER CORNELIUS MARK M.D. Performed By: #### C EA, HCGQNT #### [address] #### AFPTM, CA125, LDI #### [facility] , Total LD/Isoenzymes 148 Normal 119-226 [facility] Comment on above: Performed By: #### C EA, HCGQNT #### [address] #### AFPTM, CA125, LDI #### [facility] , Lactate dehydrogenase isoenz yme 1 measurementOrdered By: Melia Mantilla on 11-20-2024 LDH 1 Elph [Catalytic fraction] Lactate dehydrogenase isoenzyme 1 measurement 17-32 [facility] Lactate dehydrogenase isoenz yme 2 measurementOrdered By: Melia Warchol on 11-20-2024 LDH 2 Elph [Catalytic fraction] Lactate dehydrogenase isoenzyme 2 measurement 25-40 [facility] Lactate dehydrogenase isoenz yme 3 measurementOrdered By: Melia Warchol on 11-20-2024 LDH 3 Elph [Catalytic fraction] Lactate dehydrogenase isoenzyme 3 measurement 17-27 [facility] Lactate dehydrogenase isoenz yme 4 measurementOrdered By: Melia Warchol on 11-20-2024 LDH 4 Elph [Catalytic fraction] Lactate dehydrogenase isoenzyme 4 measurement 5-13 [facility] Lactate dehydrogenase isoenz yme 5 measurementOrdered By: Melia Mantilla on 11-20-2024 LDH 5 Elph [Catalytic fraction] Lactate dehydrogenase isoenzyme 5 measurement 4-20 [facility] Comment on above: Performed at: - [facility] [id number] [place], [place] [id number] Director: Ced Masters PhD, Phone: [phone] at: [facility] [address] [id number] Director: Klever Echevarria MD, Phone: [phone] Serum or plasma qepdi-5-fshu protein tumor marker measurement (mass/volume)Ordered By: Melia Mantilla on 11-20-2024 AFP.tumor marker [Mass/Vol] Serum or plasma ntazs-2-mjzwzpaapkn tumor marker measurement (mass/volume) High 0.0-4.7 [facility] Comment on above: [facility] El ectrochemiluminescence Immunoassay(ECLIA)Values obtained with different assay methods or kits cannotbe used interchangeably. Results cannot be interpreted asabsolute evidence of the presence or absence of malignantdisease.This test is not interpretable in females. Serum or plasma cancer antig en 125 (CA-125) measurement (units/volume)Ordered By: Melia Mantilla on 11-20-2024 Cancer Ag 125 Qn Serum or plasma canc er antigen 125 (CA-125) measurement (units/volume) 0.0-38.1 [facility] Comment on above: [facility] El ectrochemiluminescence Immunoassay(ECLIA)Values obtained with different assay methods or kits cannotbe used interchangeably. Results cannot be interpreted asabsolute evidence of the presence or absence of malignantdisease.Performed at: - [facility] [id number] [place], [place] [id number] Director: Ced Masters PhD, Phone: [phone] Total lactic dehydrogenase ( LDH) and isoenzymes measurementOrdered By: Melia Mantilla on 11-20-2024 LDH panel Total lactic dehydrogenase (LDH) and isoenzymes measurement 119-226 [facility] US PELVIC COMPLETE W/ TVon 0 11-06-2024 [...] II, MD, PHD at 07-Nov-2024 08:03:54 AM [facility] Normal Not Available Comment on above: Order Comment: US PE LVIS-TRANSVAG IF INDICATED No LMP recorded. HCG ( test) Ql (U)o n 10-22-2024 Interpretation and review of laboratory results Normal [facility] Preg Test, Ur Negative Negative [facility] Alanine aminotransferase [En zymatic activity/volume] in Serum or PlasmaOrdered By: López Coburn on 10-17-2024 ALT [Catalytic activity/Vol] Alanine aminotransferase [Enzymatic activity/volume] in Serum or Plasma [facility] Albumin [Mass/volume] in Ser um or Plasma by Bromocresol green (BCG) dye binding methoOrdered By: López Coburn on 10-17-2024 Albumin BCG dye [Mass/Vol] Albumin [Mass/volume] in Serum or Plasma by Bromocresol green (BCG) dye binding metho 3.5-5.7 [facility] Alkaline phosphatase [Enzyma tic activity/volume] in Serum or PlasmaOrdered By: López Coburn on 10-17-2024 ALP [Catalytic activity/Vol] Alkaline phosphatase [Enzymatic activity/volume] in Serum or Plasma 34-104 [facility] Appearance of UrineOrdered B y: López Coburn on 10-17-2024 Appearance (U) Urine appearance Abnormal Clear [facility] Aspartate aminotransferase [ Enzymatic activity/volume] in Serum or PlasmaOrdered By: López Coburn on 10-17-2024 AST [Catalytic activity/Vol] Aspartate aminotransferase [Enzymatic activity/volume] in Serum or Plasma 13-39 [facility] Bacteria [Presence] in Urine by AutomatedOrdered By: López Coburn on 10-17-2024 Bacteria Auto Ql (U) Bacteria [Presence] in Urine by Automated None Seen [facility] Basophils Auto (Bld) [#/Vol] Ordered By: López Coburn on 10-17-2024 Basophils (Bld) [#/Vol] Automated basophil count 0.0-0.2 [facility] Basophils/100 WBC Auto (Bld) Ordered By: López Coburn on 10-17-2024 Basophils/100 WBC (Bld) Automated basophil % . [facility] Bilirubin Test strip Ql (U)O rdered By: López Coburn on 10-17-2024 Bilirubin Ql (U) Bilirubin.total [Presence] in Urine by Test strip Negative [facility] Bilirubin.total [Mass/volume ] in Serum or PlasmaOrdered By: López Coburn on 10-17-2024 Bilirubin [Mass/Vol] Bilirubin.total [Mass/volume] in Serum or Plasma 0.3-1.0 [facility] Calcium [Mass/volume] in Ser um or PlasmaOrdered By: López Coburn on 10-17-2024 Calcium [Mass/Vol] Calcium [Mass/volume ] in Serum or Plasma High 8.6-10.3 [facility] Carbon dioxide, total [Moles /volume] in Serum or PlasmaOrdered By: López Coburn on 10-17-2024 CO2 [Moles/Vol] Carbon dioxide, tota l [Moles/volume] in Serum or Plasma 21.0-31.0 [facility] Chloride [Moles/volume] in [place] or PlasmaOrdered By: López Coburn on 10-17-2024 Chloride [Moles/Vol] Chloride [Moles/vol ume] in Serum or Plasma 98-107 [facility] Color Auto (U)Ordered By: Vidal Coburn on 10-17-2024 Color (U) Color of Urine by Auto Yellow [facility] Count Auto Di ffon 10-17-2024 Basophils (Bld) [#/Vol] 0.0 10*3/uL Normal 0.0-0.2 [facility] Comment on above: Result Comment: PERF ORMED BY: [facility] [address] [place] [address] PATHOLOGIST [employer] CORNELIUS MARK M.D. Performed By: #### C BC, CMP ####[address] Basophils/100 WBC (Bld) 0.3 % Normal . [facility] Comment on above: Performed By: #### C BC, CMP ####[address] Eosinophils (Bld) [#/Vol] 0.0 10*3/uL Normal 0.0-0.45 [facility] Comment on above: Performed By: #### C BC, CMP ####[address] Eosinophils/100 WBC (Bld) 0.1 % Normal . [facility] Comment on above: Performed By: #### C BC, CMP ####[address] Erythrocyte distribution width (RBC) [Ratio] 13.5 % Normal 11.9-15.3 [facility] Comment on above: Performed By: #### C BC, CMP ####[address] [place] [address] [place] Hematocrit (Bld) [Volume fraction] 40.4 % Normal 34.0-46.4 [facility] Comment on above: Performed By: #### C BC, CMP ####[address] Hemoglobin (Bld) [Mass/Vol] 13.9 g/dL Normal 11.8-15.4 [facility] Comment on above: Performed By: #### C BC, CMP ####[address] Lymphocytes (Bld) [#/Vol] 1.4 10*3/uL Normal 1.00-4.8 [facility] Comment on above: Performed By: #### C JACKIE, CMP ####[address] Lymphocytes/100 WBC (Bld) 20.3 % Normal . [facility] Comment on above: Performed By: #### C JACKIE, CMP ####[address] MCH (RBC) [Entitic mass] 29.1 pg Normal 24.7-34.3 [facility] Comment on above: Performed By: #### C JACKIE, CMP ####[address] MCV (RBC) [Entitic vol] 84.6 fL Normal 80-100 T [facility] Comment on above: Performed By: #### C BC, CMP ####[address] Mean Corpuscular HGB Conc 34.4 g/dL Normal 32.0-35.0 [facility] Comment on above: Performed By: #### C BC, CMP ####[address] Monocytes (Bld) [#/Vol] 0.7 10*3/uL Normal 0.0-0.8 [facility] Comment on above: Performed By: #### C BC, CMP ####[address] [address] [facility] Monocytes/100 WBC (Bld) 17.74 % Normal 0.00-20.00 [facility] Comment on above: Performed By: #### C BC, CMP ####[address] [address] [facility] Monocytes/100 WBC (Bld) 9.6 % Normal . [facility] Comment on above: Performed By: #### C BC, CMP ####[place] [id number] [facility] Neutrophils (Bld) [#/Vol] 4.8 10*3/uL Normal 1.8-7.7 [facility] Comment on above: Performed By: #### C JACKIE, CMP ####[place] [id number] [facility] Neutrophils/100 WBC (Bld) 69.7 % Normal . [facility] Comment on above: Performed By: #### C JACKIE, CMP ####[place] [id number] [facility] NRBC% 0.1 /100{WBC} Normal 0-0.5 [facility] Comment on above: Performed By: #### C JACKIE, CMP ####[place] [id number] [facility] Platelet mean volume (Bld) [Entitic vol] 8.0 fL Normal 6.3-10.7 [facility] Comment on above: Performed By: #### C BC, CMP ####[place] [id number] [facility] Platelets (Bld) [#/Vol] 253 10*3/uL Normal 150-450 [facility] Comment on above: Performed By: #### C BC, CMP ####[place] [id number] [facility] RBC (Bld) [#/Vol] 4.77 10*6/uL Normal 3.60-5.00 [facility] Comment on above: Performed By: #### C BC, CMP ####[address] [address] [facility] WBC (Bld) [#/Vol] 7.0 10*3/uL Normal 3.8-11.6 [facility] Comment on above: Performed By: #### C BC, CMP ####[address] [address] [facility] Comprehensive Metabolic Pane emigdio 10-17-2024 Albumin [Mass/Vol] 4.7 g/dL Normal 3.5-5.7 [facility] Comment on above: Performed By: #### C BC, CMP ####[address] [address] [facility] Albumin/Globulin [Mass ratio] 1.7 {ratio} Normal [facility] Comment on above: Performed By: #### C BC, CMP ####[address] [address] [facility] ALP [Catalytic activity/Vol] 44 U/L Normal 34-104 [facility] Comment on above: Performed By: #### C BC, CMP ####[address] [address] [facility] ALT [Catalytic activity/Vol] 10 U/L Normal 7-52 [facility] Comment on above: Performed By: #### C BC, CMP ####[address] [address] [facility] Anion gap [Moles/Vol] 14.7 mmol/L Normal 6.0-15.0 [facility] Comment on above: Performed By: #### C BC, CMP ####[address] [address] [facility] AST [Catalytic activity/Vol] 13 U/L Normal 13-39 [facility] Comment on above: Performed By: #### C BC, CMP ####[address] [address] [facility] Bilirubin [Mass/Vol] 0.4 mg/dL Normal 0.3-1.0 [facility] Comment on above: Performed By: #### C BC, CMP ####[address] Calcium [Mass/Vol] 10.4 mg/dL High 8.6-10.3 [facility] Comment on above: Performed By: #### C BC, CMP ####[address] Chloride [Moles/Vol] 106 mmol/L Normal 98-107 [facility] Comment on above: Performed By: #### C BC, CMP ####[address] CO2 [Moles/Vol] 23.3 mmol/L Normal 21.0-31.0 [facility] Comment on above: Performed By: #### C BC, CMP ####[address] Creatinine [Mass/Vol] 0.77 mg/dL Normal 0.60-1.20 [facility] Comment on above: Performed By: #### C BC, CMP ####[address] Creatinine Clr Calc Pharmacy 109.29 Normal [facility] Comment on above: Result Comment: PERF ORMED BY: [facility] [address] [place] [address] PATHOLOGIST [employer] OFFICER CORNELIUS MARK M.D. Performed By: #### C BC, CMP ####[address] GFR/1.73 sq M.predicted MDRD (S/P/Bld) [Vol rate/Area] mL/min/{1.73_m2} Normal [facility] Comment on above: Performed By: #### C BC, CMP ####[address] Globulin (S) [Mass/Vol] 2.7 g/dL Normal T [facility] Comment on above: Performed By: #### C BC, CMP ####[address] Glucose [Mass/Vol] 89 mg/dL Normal 70-100 [facility] Comment on above: Result Comment: Alpha Glucose Reference Range is dependent on time and content of last meal. Glucose of more than 200 mg/dL in a nonstressed, ambulatory subject supports the diagnosis of Diabetes Mellitus. ADA recommended reference range Performed By: #### C BC, CMP ####[facility] [place] [id number] [facility] Potassium [Moles/Vol] 4.0 mmol/L Normal 3.5-5.1 [facility] Comment on above: Performed By: #### C BC, CMP ####[place] [id number] [place] [id number] [facility] Protein [Mass/Vol] 7.4 g/dL Normal 6.4-8.9 [facility] Comment on above: Performed By: #### C BC, CMP ####[place] [id number] [facility] Sodium [Moles/Vol] 140 mmol/L Normal 136-145 [facility] Comment on above: Performed By: #### C BC, CMP ####[place] [id number] [place] [id number] [facility] Urea nitrogen [Mass/Vol] 15 mg/dL Normal 7-25 [facility] Comment on above: Performed By: #### C BC, CMP ####[place] [id number] [facility] Creatinine [Mass/volume] in Serum or PlasmaOrdered By: López Coburn on 10-17-2024 Creatinine [Mass/Vol] Creatinine [Mass/v olume] in Serum or Plasma 0.60-1.20 [facility] Dipstick and Microscopicon 0 10-17-2024 Appearance (U) Cloudy Critically abnormal Clear [facility] Comment on above: Order Comment: Name Collection Type:: Clean-Voided Midstream Performed By: #### A DDONUAPLUS, UHCG #### [facility] [address] [place] [id number] [facility] Bacteria,Urine Rare Normal None Seen [facility] Comment on above: Order Comment: Name Collection Type:: Clean-Voided Midstream Performed By: #### A DDONUAPLUS, UHCG #### [address] Bilirubin,Urine Negative Normal Negative [facility] Comment on above: Order Comment: Name Collection Type:: Clean-Voided Midstream Performed By: #### A DDONUAPLUS, UHCG #### [address] Color (U) Yellow Normal Yellow [facility] Comment on above: Order Comment: Name Collection Type:: Clean-Voided Midstream Performed By: #### A DDONUAPLUS, UHCG #### [address] Glucose Ql (U) Normal Normal Normal [facility] Comment on above: Order Comment: Name Collection Type:: Clean-Voided Midstream Performed By: #### A DDONUAPLUS, UHCG #### [place] [address] [place] Hyaline Casts,Urine 9 [LPF] High 0-8 [facility] Comment on above: Order Comment: Name Collection Type:: Clean-Voided Midstream Performed By: #### A DDONUAPLUS, UHCG #### [address] Ketones Ql (U) 2+ High Negative [facility] Comment on above: Order Comment: Name Collection Type:: Clean-Voided Midstream Performed By: #### A DDONUAPLUS, UHCG #### [address] Leukocyte esterase Test strip Ql (U) Negative Normal Negative [facility] Comment on above: Order Comment: Name Collection Type:: Clean-Voided Midstream Performed By: #### A DDONUAPLUS, UHCG #### [address] Mucus,Urine 4+ Critically abnormal [facility] Comment on above: Order Comment: Name Collection Type:: Clean-Voided Midstream Performed By: #### A DDONUAPLUS, UHCG #### [place] [address] [place] Nitrite,Urine Negative Normal Negative [facility] Comment on above: Order Comment: Name Collection Type:: Clean-Voided Midstream Performed By: #### A DDONUAPLUS, UHCG #### [address] Occult Blood,Urine Negative Normal Negative [facility] Comment on above: Order Comment: Name Collection Type:: Clean-Voided Midstream Performed By: #### A DDONUAPLUS, UHCG #### [address] pH (U) 6.0 [pH] Normal 5.0-9.0 [facility] Comment on above: Order Comment: Name Collection Type:: Clean-Voided Midstream Performed By: #### A DDONUAPLUS, UHCG #### [address] Protein (U) [Mass/Vol] 30 mg/dL High Negative Th e [facility] Comment on above: Order Comment: Name Collection Type:: Clean-Voided Midstream Performed By: #### A DDONUAPLUS, UHCG #### [address] RBC,Urine 1 [HPF] Normal 0-4 [facility] Comment on above: Order Comment: Name Collection Type:: Clean-Voided Midstream Performed By: #### A DDONUAPLUS, UHCG #### [place] [address] [place] Specificy [place],Urine 1.039 High 1.00 1-1.03 0 [facility] Comment on above: Order Comment: Name Collection Type:: Clean-Voided Midstream Performed By: #### A DDONUAPLUS, UHCG #### [place] [address] [place] Squamous Epithelial Cell,Urine 10 [HPF] High 0-2 [facility] Comment on above: Order Comment: Name Collection Type:: Clean-Voided Midstream Performed By: #### A DDONUAPLUS, UHCG #### [facility] [address] Urobilinogen,Urine 2 mg/dL High Normal [facility] Comment on above: Order Comment: Name Collection Type:: Clean-Voided Midstream Performed By: #### A DDONUAPLUS, UHCG #### [facility] [address] WBC,Urine 3 [HPF] Normal 0-4 [facility] Comment on above: Order Comment: Name Collection Type:: Clean-Voided Midstream Performed By: #### A DDONUAPLUS, UHCG #### [facility] [address] Eosinophils Auto (Bld) [#/Vo l]Ordered By: López Coburn on 10-17-2024 Eosinophils (Bld) [#/Vol] Automated eosinophil count 0.0-0.45 [facility] Eosinophils/100 WBC Auto (Bl d)Ordered By: López Coburn on 10-17-2024 Eosinophils/100 WBC (Bld) Automated eosinophil % . [facility] Epithelial cells.squamous [# /area] in Urine sediment by Automated countOrdered By: López Coburn on 10-17-2024 Epithelial cells.squamous Auto (Urine sed) [#/Area] Epithelial cells.squamous [#/area] in Urine sediment by Automated count High 0-2 [facility] Erythrocyte distribution wid th Auto (RBC) [Ratio]Ordered By: Lpóez Coburn on 10-17-2024 Erythrocyte distribution width (RBC) [Ratio] Erythrocyte distribution width [Ratio] by Automated count 11.9-15.3 [facility] Erythrocytes [#/area] in Uri ne sediment by Automated countOrdered By: López Coburn on 10-17-2024 RBC Auto (Urine sed) [#/Area] Erythrocytes [#/area] in Urine sediment by Automated count 0-4 [facility] Globulin Calc (S) [Mass/Vol] Ordered By: López Coburn on 10-17-2024 Globulin (S) [Mass/Vol] Serum globulin measurement by calculation (mass/volume) [facility] Glucose [Mass/volume] in Ser um or PlasmaOrdered By: López Coburn on 10-17-2024 Glucose [Mass/Vol] Glucose [Mass/volume ] in Serum or Plasma 70-100 [facility] Comment on above: ADA recommended [...] [Mass/volume] in Urine by Test strip Normal [facility] HCG ( test) IA.rapi d Ql (U)Ordered By: López Coburn on 10-17-2024 HCG ( test) Ql (U) Urine human chorionic gonadotropin (hCG) detection by immunoassay [facility] HCG,Urineon 10-17-2024 Beta HCG ( test) Ql (U) Negative Normal [facility] Comment on above: Order Comment: Name Collection Type:: Clean-Voided Midstream Result Comment: PERF ORMED BY: [place] [address] PATHOLOGIST [employer] OFFICER CORNELIUS MARK M.D. Performed By: #### A [facility] [place] #### [address] Hematocrit Auto (Bld) [Volum e fraction]Ordered By: López Coburn on 10-17-2024 Hematocrit (Bld) [Volume fraction] Hematocrit [Volume Fraction] of Blood by Automated count 34.0-46.4 [facility] Hemoglobin Test strip Ql (U) Ordered By: López Coburn on 10-17-2024 Hemoglobin Ql (U) Hemoglobin [Presence ] in Urine by Test strip Negative [facility] Hemoglobin [Mass/volume] in BloodOrdered By: López Coburn on 10-17-2024 Hemoglobin (Bld) [Mass/Vol] Hemoglobin [Mass/volume] in Blood 11.8-15.4 [facility] Hyaline casts [#/area] in Ur ine sediment by Automated countOrdered By: López Coburn on 10-17-2024 Hyaline casts Auto (Urine sed) [#/Area] Hyaline casts [#/area] in Urine sediment by Automated count High 0-8 [facility] Ketones Test strip Ql (U)Ord ered By: López Coburn on 10-17-2024 Ketones Ql (U) Ketones [Presence] i n Urine by Test strip High Negative [facility] Leukocyte esterase [Presence ] in Urine by Test stripOrdered By: López Coburn on 10-17-2024 Leukocyte esterase Test strip Ql (U) Leukocyte esterase [Presence] in Urine by Test strip Negative [facility] Leukocytes [#/area] in Urine sediment by Automated countOrdered By: López Coburn on 10-17-2024 WBC Auto (Urine sed) [#/Area] Leukocytes [#/area] in Urine sediment by Automated count 0-4 [facility] Leukocytes [#/volume] correc nicole for nucleated erythrocytes in Blood by Automated counOrdered By: López Coburn on 10-17-2024 WBC corrected for nucl RBC Auto (Bld) [#/Vol] Leukocytes [#/volume] corrected for nucleated erythrocytes in Blood by Automated coun 3.8-11.6 [facility] Lymphocytes Auto (Bld) [#/Vo l]Ordered By: López Coburn on 10-17-2024 Lymphocytes (Bld) [#/Vol] Lymphocytes [#/volume] in Blood by Automated count 1.00-4.8 [facility] Lymphocytes/100 WBC Auto (Bl d)Ordered By: López Coburn on 10-17-2024 Lymphocytes/100 WBC (Bld) Lymphocytes/100 leukocytes in Blood by Automated count . [facility] MCH Auto (RBC) [Entitic mass ]Ordered By: López Coburn on 10-17-2024 MCH (RBC) [Entitic mass] MCH [Entitic ma ss] by Automated count 24.7-34.3 [facility] MCHC Auto (RBC) [Mass/Vol]Or dered By: López Coburn on 10-17-2024 MCHC (RBC) [Mass/Vol] MCHC [Mass/volume] by Automated count 32.0-35.0 [facility] MCV Auto (RBC) [Entitic vol] Ordered By: López Coburn on 10-17-2024 MCV (RBC) [Entitic vol] MCV [Entitic vol ume] by Automated count 80-100 [facility] Monocyte distribution width [Entitic volume] in Blood by AutomatedOrdered By: López Coburn on 10-17-2024 Monocyte distribution width Auto (Bld) [Entitic vol] Monocyte distribution width [Entitic volume] in Blood by Automated 0.00-20.00 [facility] Monocytes Auto (Bld) [#/Vol] Ordered By: López Coburn on 10-17-2024 Monocytes (Bld) [#/Vol] Automated blood monocyte count 0.0-0.8 [facility] Monocytes/100 WBC Auto (Bld) Ordered By: López Coburn on 10-17-2024 Monocytes/100 WBC (Bld) Automated monocyte % . [facility] Mucus [Presence] in Urine by AutomatedOrdered By: López Coburn on 10-17-2024 Mucus Auto Ql (U) Mucus [Presence] in Urine by Automated Abnormal [facility] Neutrophils Auto (Bld) [#/Vo l]Ordered By: López Coburn on 10-17-2024 Neutrophils (Bld) [#/Vol] Neutrophils [#/volume] in Blood by Automated count 1.8-7.7 [facility] Neutrophils/100 WBC Auto (Bl d)Ordered By: López Coburn on 10-17-2024 Neutrophils/100 WBC (Bld) Automated neutrophil % . [facility] Nitrite Test strip Ql (U)Ord ered By: López Coburn on 10-17-2024 Nitrite Ql (U) Nitrite [Presence] i n Urine by Test strip Negative [facility] No Panel InformationOrdered By: López Coburn on 10-17-2024 Estimated GFR (CKD-EPI) > 60.0 mL/Min [facility] Creatinine Clearance (Chem 109.29 [facility] Nucleated erythrocytes [Pres ence] in Blood by Automated countOrdered By: López Coburn on 10-17-2024 Nucleated RBC Auto Ql (Bld) Nucleated erythrocytes [Presence] in Blood by Automated count 0-0.5 [facility] Platelet mean volume Auto (B ld) [Entitic vol]Ordered By: López Coburn on 10-17-2024 Platelet mean volume (Bld) [Entitic vol] Platelet mean volume [Entitic volume] in Blood by Automated count 6.3-10.7 [facility] Platelets Auto (Bld) [#/Vol] Ordered By: López Coburn on 10-17-2024 Platelets (Bld) [#/Vol] Platelets [#/vol ume] in Blood by Automated count 150-450 [facility] Potassium [Moles/volume] in Serum or PlasmaOrdered By: López Coburn on 10-17-2024 Potassium [Moles/Vol] Potassium [Moles/v olume] in Serum or Plasma 3.5-5.1 [facility] Protein Test strip (U) [Mass /Vol]Ordered By: López Coburn on 10-17-2024 Protein (U) [Mass/Vol] Protein [Mass/vol ume] in Urine by Test strip High Negative [facility] Protein [Mass/volume] in Ser um or PlasmaOrdered By: López Coburn on 10-17-2024 Protein [Mass/Vol] Protein [Mass/volume ] in Serum or Plasma 6.4-8.9 [facility] RBC Auto (Bld) [#/Vol]Ordere d By: López Coburn on 10-17-2024 RBC (Bld) [#/Vol] Erythrocytes [#/volu me] in Blood by Automated count 3.60-5.00 [facility] Serum or plasma albumin/glob ulin mass ratioOrdered By: López Coburn on 10-17-2024 Albumin/Globulin [Mass ratio] Serum or plasma albumin/globulin mass ratio [facility] Serum or plasma anion gap de terminationOrdered By: López Coburn on 10-17-2024 Anion gap [Moles/Vol] Serum or plasma an ion gap determination 6.0-15.0 [facility] Sodium [Moles/volume] in Ser um or PlasmaOrdered By: López Coburn on 10-17-2024 Sodium [Moles/Vol] Sodium [Moles/volume ] in Serum or Plasma 136-145 [facility] Specific gravity Test strip (U) [Rel density]Ordered By: López Coburn on 10-17-2024 Specific gravity (U) [Rel density] Specific gravity of Urine by Test strip High 1.001-1.03 0 [facility] Urea nitrogen [Mass/volume] in Serum or PlasmaOrdered By: López Coburn on 10-17-2024 Urea nitrogen [Mass/Vol] Urea nitrogen [Mass/volume] in Serum or Plasma 7-25 [facility] Urobilinogen Test strip (U) [Mass/Vol]Ordered By: López Coburn on 10-17-2024 Urobilinogen (U) [Mass/Vol] Urobilinogen [Mass/volume] in Urine by Test strip High Normal [facility] WBC Auto (Bld) [#/Vol]Ordere d By: López Coburn on 10-17-2024 WBC (Bld) [#/Vol] Leukocytes [#/volume ] in Blood by Automated count 3.8-11.6 [facility] pH Test strip (U)Ordered By: Lóepz Coburn on 10-17-2024 pH (U) pH of Urine by Test strip 5.0-9.0 [facility] Alanine aminotransferase [En zymatic activity/volume] in Serum or PlasmaOrdered By: Melia Mantilla on 07-25-2024 ALT [Catalytic activity/Vol] 9 U/L Normal [facility] Comment on above: Performed By: #### C SUSAN, MG ####[facility] [id number] [place] [id number] [facility] ALT [Catalytic activity/Vol] Alanine aminotransferase [Enzymatic activity/volume] in Serum or Plasma [facility] Albumin [Mass/volume] in Ser um or Plasma by Bromocresol green (BCG) dye binding methoOrdered By: Melia Mantilla on 07-25-2024 Albumin BCG dye [Mass/Vol] 4.4 g/dL 3.5-5.7 [facility] Albumin BCG dye [Mass/Vol] Albumin [Mass/volume] in Serum or Plasma by Bromocresol green (BCG) dye binding metho 3.5-5.7 [facility] Alkaline phosphatase [Enzyma tic activity/volume] in Serum or PlasmaOrdered By: Melia Mantilla on 07-25-2024 ALP [Catalytic activity/Vol] 42 U/L Normal [facility] Comment on above: Performed By: #### C SUSAN, MG ####[facility] [address] [place] [address] [facility] ALP [Catalytic activity/Vol] Alkaline phosphatase [Enzymatic activity/volume] in Serum or Plasma [facility] Aspartate aminotransferase [ Enzymatic activity/volume] in Serum or PlasmaOrdered By: Melia Mantilla on 07-25-2024 AST [Catalytic activity/Vol] 10 U/L [address] Comment on above: Performed By: #### C MP, MG ####[place] [id number] AST [Catalytic activity/Vol] Aspartate aminotransferase [Enzymatic activity/volume] in Serum or Plasma [address] Automated basophil %Ordered By: Melia Mantilla on 07-25-2024 Basophils/100 WBC (Bld) 0.5 % Normal . [facility] [facility] Comment on above: Performed By: #### C BC ####[address] Automated basophil countOrde red By: Melia Mantilla on 07-25-2024 Basophils (Bld) [#/Vol] 0.0 10*3/uL Normal 0.0-0.2 [facility] Comment on above: Result Comment: PERF ORMED BY: [facility] [address] [facility] [place] [address] PATHOLOGIST [employer] BORIS ELIZABETH M.D. Performed By: #### C BC ####[address] Automated blood monocyte cou ntOrdered By: Melia Mantilla on 07-25-2024 Monocytes (Bld) [#/Vol] 0.5 10*3/uL Normal 0.0-0.8 [facility] Comment on above: Performed By: #### C BC ####[address] Automated eosinophil %Ordere d By: Melia Mantilla on 07-25-2024 Eosinophils/100 WBC (Bld) 0.7 % Normal . [facility] Comment on above: Performed By: #### C BC ####[address] Automated eosinophil countOr dered By: Melia Mantilla on 07-25-2024 Eosinophils (Bld) [#/Vol] 0.0 10*3/uL Normal 0.0-0.45 [facility] Comment on above: Performed By: #### C BC ####[address] Automated monocyte %Ordered By: Melia Hernán on 07-25-2024 Monocytes/100 WBC (Bld) 7.2 % Normal . [facility] Comment on above: Performed By: #### C BC ####[address] Automated neutrophil %Ordere d By: Melia Hernán on 07-25-2024 Neutrophils/100 WBC (Bld) 56.4 % Normal . [facility] Comment on above: Performed By: #### C BC ####[address] Basophils Auto (Bld) [#/Vol] Ordered By: Melia Mantilla on 07-25-2024 Basophils (Bld) [#/Vol] Automated basophil count 0.0-0.2 [facility] Basophils/100 WBC Auto (Bld) Ordered By: Melia Hernán on 07-25-2024 Basophils/100 WBC (Bld) Automated basophil % . [facility] Bilirubin.total [Mass/volume ] in Serum or PlasmaOrdered By: Melia Mantilla on 07-25-2024 Bilirubin [Mass/Vol] 0.4 mg/dL Normal 0.3-1.0 [facility] Comment on above: Performed By: #### C MP, MG ####[address] Bilirubin [Mass/Vol] Bilirubin.total [Mass/volume] in Serum or Plasma 0.3-1.0 [facility] Calcium [Mass/volume] in Ser um or PlasmaOrdered By: Melia Mantilla on 07-25-2024 Calcium [Mass/Vol] 9.7 mg/dL Normal 8.6-10.3 [facility] Comment on above: Performed By: #### C MP, MG ####[address] Calcium [Mass/Vol] Calcium [Mass/volume ] in Serum or Plasma 8.6-10.3 [facility] Carbon dioxide, total [Moles /volume] in Serum or PlasmaOrdered By: Melia Mantilla on 07-25-2024 CO2 [Moles/Vol] 31.2 mmol/L High 21.0-31.0 [facility] Comment on above: Performed By: #### C MP, MG ####[place] [id number] [address] CO2 [Moles/Vol] Carbon dioxide, tota l [Moles/volume] in Serum or Plasma High 21.0-31.0 [facility] Chloride [Moles/volume] in S t[place] or PlasmaOrdered By: Melia Mantilla on 07-25-2024 Chloride [Moles/Vol] 108 mmol/L High 98-107 [facility] Comment on above: Performed By: #### C MP, MG ####[place] [id number] [address] Chloride [Moles/Vol] Chloride [Moles/vol ume] in Serum [place] [address] [facility] Complete Blood Count Auto Di ffon 07-25-2024 Mean Corpuscular HGB Conc 33.8 g/dL Normal 32.0-35.0 [facility] Comment on above: Performed By: #### C BC ####[place] [id number] [facility] NRBC% 0.1 /100{WBC} Normal 0-0.5 [facility] Comment on above: Performed By: #### C BC ####[place] [id number] [facility] Comprehensive Metabolic Pane emigdio 07-25-2024 Albumin [Mass/Vol] 4.4 g/dL Normal 3.5-5.7 [facility] Comment on above: Performed By: #### C MP, MG ####[place] [id number] [place] [id number] [facility] GFR/1.73 sq M.predicted MDRD (S/P/Bld) [Vol rate/Area] mL/min/{1.73_m2} Normal [facility] Comment on above: Performed By: #### C MP, MG ####[place] [id number] [address] Creatinine [Mass/volume] in Serum or PlasmaOrdered By: Melia Mantilla on 07-25-2024 Creatinine [Mass/Vol] 0.81 mg/dL Normal 0.60-1.20 [facility] Comment on above: Performed By: #### C MP, MG ####[address] Creatinine [Mass/Vol] Creatinine [Mass/v olume] in Serum or Plasma 0.60-1.20 [facility] Eosinophils Auto (Bld) [#/Vo l]Ordered By: Melia Mantilla on 07-25-2024 Eosinophils (Bld) [#/Vol] Automated eosinophil count 0.0-0.45 [facility] Eosinophils/100 WBC Auto (Bl d)Ordered By: Melia Mantilla on 07-25-2024 Eosinophils/100 WBC (Bld) Automated eosinophil % . [facility] Erythrocyte distribution wid th Auto (RBC) [Ratio]Ordered By: Melia Mantilla on 07-25-2024 Erythrocyte distribution width (RBC) [Ratio] Erythrocyte distribution width [Ratio] by Automated count 11.9-15.3 [facility] Erythrocyte distribution wid th [Ratio] by Automated countOrdered By: Melia Mantilla on 07-25-2024 Erythrocyte distribution width (RBC) [Ratio] 13.8 % Normal 11.9-15.3 [facility] Comment on above: Performed By: #### C BC ####[place] [id number] [address] Erythrocytes [#/volume] in B lood by Automated countOrdered By: Melia Mantilla on 07-25-2024 RBC (Bld) [#/Vol] 4.85 10*6/uL Normal 3.60-5.00 [facility] Comment on above: Performed By: #### C BC ####[place] [id number] Globulin Calc (S) [Mass/Vol] Ordered By: Melia Mantilla on 07-25-2024 Globulin (S) [Mass/Vol] Serum globulin measurement by calculation (mass/volume) [facility] Glucose [Mass/volume] in Ser um or PlasmaOrdered By: Melia Mantilla on 07-25-2024 Glucose [Mass/Vol] 91 mg/dL Normal 70-100 [facility] Comment on above: ADA recommended refe rence rangeRandom Glucose Reference Range is dependent on time and content of last meal. Glucose of more than 200 mg/dL in a nonstressed, ambulatory subject supports the diagnosis of Diabetes Mellitus. Result Comment: Alpha Glucose Reference Range is dependent on time and content of last meal. Glucose of more than 200 mg/dL in a nonstressed, ambulatory subject supports the diagnosis of Diabetes Mellitus. ADA recommended reference range Performed By: #### C MP, MG ####[address] Glucose [Mass/Vol] Glucose [Mass/volume ] in Serum or Plasma 70-100 [facility] Comment on above: ADA recommended refe rence rangeRandom Glucose Reference Range is dependent on time and content of last meal. Glucose of more than 200 mg/dL in a nonstressed, ambulatory subject supports the diagnosis of Diabetes Mellitus. Hematocrit Auto (Bld) [Volum e fraction]Ordered By: Melia Mantilla on 07-25-2024 Hematocrit (Bld) [Volume fraction] Hematocrit [Volume Fraction] of Blood by Automated count 34.0-46.4 [facility] Hematocrit [Volume Fraction] of Blood by Automated countOrdered By: Melia Mantilla on 07-25-2024 Hematocrit (Bld) [Volume fraction] 41.7 % Normal 34.0-46.4 [facility] Comment on above: Performed By: #### C BC ####[place] [id number] [facility] Hemoglobin [Mass/volume] in BloodOrdered By: Melia Mantilla on 07-25-2024 Hemoglobin (Bld) [Mass/Vol] 14.1 g/dL Normal 11.8-15.4 [facility] Comment on above: Performed By: #### C BC ####[place] [id number] [facility] Hemoglobin (Bld) [Mass/Vol] Hemoglobin [Mass/volume] in Blood 11.8-15.4 [facility] Leukocytes [#/volume] correc nicole for nucleated erythrocytes in Blood by Automated counOrdered By: Melia Mantilla on 07-25-2024 WBC corrected for nucl RBC Auto (Bld) [#/Vol] 6.7 10*3/uL 3.8-11.6 [facility] WBC corrected for nucl RBC Auto (Bld) [#/Vol] Leukocytes [#/volume] corrected for nucleated erythrocytes in Blood by Automated coun 3.8-11.6 [facility] Leukocytes [#/volume] in Blo od by Automated countOrdered By: Melia Mantilla on 07-25-2024 WBC (Bld) [#/Vol] 6.7 10*3/uL Normal 3.8-11.6 [facility] Comment on above: Performed By: #### C BC ####[facility] [id number] Lymphocytes Auto (Bld) [#/Vo l]Ordered By: Melia Mantilla on 07-25-2024 Lymphocytes (Bld) [#/Vol] Lymphocytes [#/volume] in Blood by Automated count 1.00-4.8 [facility] Lymphocytes [#/volume] in Bl ood by Automated countOrdered By: Melia Mantilla on 07-25-2024 Lymphocytes (Bld) [#/Vol] 2.3 10*3/uL Normal 1.00-4.8 [facility] Comment on above: Performed By: #### C BC ####[facility] [id number] Lymphocytes/100 WBC Auto (Bl d)Ordered By: Melia Mantilla on 07-25-2024 Lymphocytes/100 WBC (Bld) Lymphocytes/100 leukocytes in Blood by Automated count . [facility] Lymphocytes/100 leukocytes i n Blood by Automated countOrdered By: Melia Mantilla on 07-25-2024 Lymphocytes/100 WBC (Bld) 35.2 % Normal . [facility] Comment on above: Performed By: #### C BC ####[place] [address] MCH Auto (RBC) [Entitic mass ]Ordered By: Melia Mantilla on 07-25-2024 MCH (RBC) [Entitic mass] MCH [Entitic ma ss] by Automated count 24.7-34.3 [facility] MCH [Entitic mass] by Automa nicole countOrdered By: Melia Mantilla on 07-25-2024 MCH (RBC) [Entitic mass] 29.1 pg Normal 24.7-34.3 [facility] Comment on above: Performed By: #### C BC ####[address] MCHC Auto (RBC) [Mass/Vol]Or dered By: Melia Mantilla on 07-25-2024 MCHC (RBC) [Mass/Vol] 33.8 g/dL 32.0-35.0 [facility] MCHC (RBC) [Mass/Vol] MCHC [Mass/volume] by Automated count 32.0-35.0 [facility] MCV Auto (RBC) [Entitic vol] Ordered By: Melia Mantilla on 07-25-2024 MCV (RBC) [Entitic vol] MCV [Entitic vol ume] by Automated count 80-100 [facility] MCV [Entitic volume] by Auto mated countOrdered By: Melia Mantilla on 07-25-2024 MCV (RBC) [Entitic vol] 86.1 fL Normal 80-100 [facility] Comment on above: Performed By: #### C BC ####[address] Magnesium [Mass/volume] in S [place] or PlasmaOrdered By: Melia Mantilla on 07-25-2024 Magnesium [Mass/Vol] 1.9 mg/dL Normal 1.9-2.7 [facility] Comment on above: Result Comment: PERF ORMED BY: [facility] [address] [place] [address] PATHOLOGIST [employer] BORIS ELIZABETH M.D. Performed By: #### C MP, MG ####[address] Magnesium [Mass/Vol] Magnesium [Mass/vol ume] in Serum or Plasma 1.9-2.7 [facility] Monocytes Auto (Bld) [#/Vol] Ordered By: Melia Mantilla on 07-25-2024 Monocytes (Bld) [#/Vol] Automated blood monocyte count 0.0-0.8 [facility] Monocytes/100 WBC Auto (Bld) Ordered By: Melia Mantilla on 07-25-2024 Monocytes/100 WBC (Bld) Automated monocyte % . [facility] Neutrophils Auto (Bld) [#/Vo l]Ordered By: Melia Mantilla on 07-25-2024 Neutrophils (Bld) [#/Vol] Neutrophils [#/volume] in Blood by Automated count 1.8-7.7 [facility] Neutrophils [#/volume] in Bl ood by Automated countOrdered By: Melia Mantilla on 07-25-2024 Neutrophils (Bld) [#/Vol] 3.8 10*3/uL Normal 1.8-7.7 [facility] Comment on above: Performed By: #### C BC ####[facility] [id number] Neutrophils/100 WBC Auto (Bl d)Ordered By: Melia Mantilla on 07-25-2024 Neutrophils/100 WBC (Bld) Automated neutrophil % . [facility] No Panel InformationOrdered By: Melia Mantilla on 07-25-2024 Estimated GFR (CKD-EPI) > 60.0 mL/Min [facility] Creatinine Clearance (Chem N/A [facility] Nucleated erythrocytes [Pres ence] in Blood by Automated countOrdered By: Melia Mantilla on 07-25-2024 Nucleated RBC Auto Ql (Bld) 0.1 /100{WBC} 0-0.5 [facility] Nucleated RBC Auto Ql (Bld) Nucleated erythrocytes [Presence] in Blood by Automated count 0-0.5 [facility] Platelet mean volume Auto (B ld) [Entitic vol]Ordered By: Melia Mantilla on 07-25-2024 Platelet mean volume (Bld) [Entitic vol] Platelet mean volume [Entitic volume] in Blood by Automated count 6.3-10.7 [facility] Platelet mean volume [Entiti c volume] in Blood by Automated countOrdered By: Melia Mantilla on 07-25-2024 Platelet mean volume (Bld) [Entitic vol] 7.8 fL Normal 6.3-10.7 [facility] Comment on above: Performed By: #### C BC ####[place] [id number] [facility] Platelets Auto (Bld) [#/Vol] Ordered By: Melia Mantilla on 07-25-2024 Platelets (Bld) [#/Vol] Platelets [#/vol ume] in Blood by Automated count 150-450 [facility] Platelets [#/volume] in Bloo d by Automated countOrdered By: Melia Mantilla on 07-25-2024 Platelets (Bld) [#/Vol] 280 10*3/uL Normal 150-450 [facility] Comment on above: Performed By: #### C BC ####[place] [id number] [facility] Potassium [Moles/volume] in Serum or PlasmaOrdered By: Melia Mantilla on 07-25-2024 Potassium [Moles/Vol] 4.1 mmol/L Normal 3.5-5.1 [facility] Comment on above: Performed By: #### C MP, MG ####[place] [id number] [facility] Potassium [Moles/Vol] Potassium [Moles/v olume] in Serum or Plasma 3.5-5.1 [facility] Protein [Mass/volume] in Ser um or PlasmaOrdered By: Melia Mantilla on 07-25-2024 Protein [Mass/Vol] 6.5 g/dL Normal 6.4-8.9 [facility] Comment on above: Performed By: #### C MP, MG ####[place] [id number] [facility] Protein [Mass/Vol] Protein [Mass/volume ] in Serum or Plasma 6.4-8.9 [facility] RBC Auto (Bld) [#/Vol]Ordere d By: Melia Mantilla on 07-25-2024 RBC (Bld) [#/Vol] Erythrocytes [#/volu me] in Blood by Automated count 3.60-5.00 [facility] Serum globulin measurement b y calculation (mass/volume)Ordered By: Melia Mantilla on 07-25-2024 Globulin (S) [Mass/Vol] 2.1 g/dL Normal [facility] Comment on above: Performed By: #### C SUSAN, MG ####[place] [id number] [address] Serum or plasma albumin/glob ulin mass ratioOrdered By: Melia Mantilla on 07-25-2024 Albumin/Globulin [Mass ratio] 2.1 {ratio} Normal [facility] Comment on above: Performed By: #### C SUSAN, MG ####[address] Albumin/Globulin [Mass ratio] Serum or plasma albumin/globulin mass ratio [facility] Serum or plasma anion gap de terminationOrdered By: Melia Mantilla on 07-25-2024 Anion gap [Moles/Vol] 7.9 mmol/L Normal 6.0-15.0 [facility] Comment on above: Performed By: #### C SUSAN, MG ####[address] Anion gap [Moles/Vol] Serum or plasma an ion gap determination 6.0-15.0 [facility] Sodium [Moles/volume] in Ser um or PlasmaOrdered By: Melia Mantilla on 07-25-2024 Sodium [Moles/Vol] 143 mmol/L Normal 136-145 [facility] Comment on above: Performed By: #### C MP, MG ####[address] Sodium [Moles/Vol] Sodium [Moles/volume ] in Serum or Plasma 136-145 [facility] Urea nitrogen [Mass/volume] in Serum or PlasmaOrdered By: Melia Mantilla on 07-25-2024 Urea nitrogen [Mass/Vol] 11 mg/dL Normal 7-25 [facility] Comment on above: Performed By: #### C MP, MG ####[facility] [id number] [place] [id number] [facility] Urea nitrogen [Mass/Vol] Urea nitrogen [Mass/volume] in Serum or Plasma 04-12 [facility] WBC Auto (Bld) [#/Vol]Ordere d By: Melia Mantilla on 07-25-2024 WBC (Bld) [#/Vol] Leukocytes [#/volume ] in Blood by Automated count 3.8-11.6 [facility] XR lumbar spine 2-3V*on XR lumbar spine 2-3V* [facility] [place] [address] XRay Report Signed Patient: So Dorman MR#: [id number] 2 : 2005 Acct:[id number] Age/Sex: 18 / F ADM Date: 07/25/24 Loc: XD Room: Type: [facility] Attending Dr: Melia Mantilla CONTROL SYSTEMS TECHNICIAN-C Copies to: Melia Mantilla CNP Ordering Provider: [...] PROCESS. Impression dictated by: Sea Shepard Jr., D.OShayy07/25/2024 3:34 PM Dictation Location: [place] [address] Transcribed By: [facility] 07/25/24 153 Dictated By: Sea Shepard Jr, DO 07/25/24 1533 Signed By: 07/25/24 1534 Normal [facility] XR si jointson 07-25-2024 XR si joints [address] [address] XRay Report Signed Patient: So Dorman MR#: [id number] 2 : 2005 Acct:[id number] Age/Sex: 18 / F ADM Date: 07/25/24 Loc: XD Room: Type: [facility] Attending Dr: Melia Mantilla CONTROL SYSTEMS TECHNICIAN-C Copies to: Melia Mantilla CNP Ordering Provider: [...] Shepard Jr., D.O.07/25/2024 3:35 PM Dictation Location: [place] [address] Transcribed By: [facility] 07/25/24 1535 Dictated By: Sea Shepard Jr, DO 07/25/241533 Signed By: 07/25/24 1535 Normal [facility] ALL LDHon 11-03-2023 LDH [Catalytic activity/Vol] 129 U/L 81 - 234 U/L [facility] XR LSPINE MIN 4 VIEWSon 12-19 XR [...] JOY CARDOZA Date: 2023-01-10 11:59 Normal [facility] CBC AUTO DIFFon 11-12-2022 BASO # 0.0 103/ul Normal 0.0-0.[address] [facility] Comment on above: Performed By: #### C BC #### [facility] [address] [place] [address] Dr. Hilda Harden Basophils/100 WBC (Bld) 0.3 % Normal 0.2-2.[address] [facility] Comment on above: Performed By: #### C BC #### [facility] [address] [place] [address] Dr. Hilda Harden EO # 0.1 103/ul Normal 0.0-0.[address] [facility] Comment on above: Performed By: #### C BC #### [facility] [address] [place] [address] Dr. Hilda Harden Eosinophils/100 WBC (Bld) 1.3 % Normal 0.9-7.[address] [facility] Comment on above: Performed By: #### C BC #### [facility] [address] [place] [address] Dr. Hilda Harden Erythrocyte distribution width (RBC) [Ratio] 13.3 % Normal 11.0-15.[address] [facility] Comment on above: Performed By: #### C BC #### [facility] [address] [place] [address] Dr. Hilda Harden Hematocrit (Bld) [Volume fraction] 40.9 % Normal 36.0-48.[address] [facility] Comment on above: Performed By: #### C BC #### [facility] [address] [place] [address] Dr. Hilda Harden Hemoglobin (Bld) [Mass/Vol] 13.9 g/dL Normal 12.0-16.[address] [facility] Comment on above: Performed By: #### C BC #### [facility] [address] [place] [address] Dr. Hilda Harden IG # 0.02 10e3/ul Normal 0.00-0.[address] [facility] Comment on above: Performed By: #### C BC #### [facility] [address] [place] [address] Dr. Hilda Harden IG % 0.3 % Normal 0.0-0.[address] [facility] Comment on above: Performed By: #### C BC #### [facility] [address] [place] [address] Dr. Hilda Harden LYMPH # 2.5 103/ul Normal 1.2-3.[address] [facility] Comment on above: Performed By: #### C BC #### [facility] [address] [place] [address] Dr. Hilda Harden Lymphocytes/100 WBC (Bld) 41.4 % Normal 20.5-60.[address] [facility] Comment on above: Performed By: #### C BC #### [facility] [address] [place] [address] Dr. Hilda Harden MANUAL DIFF REQ NO Normal [facility] Comment on above: Performed By: #### C BC #### [facility] [address] [place] [address] Dr. Hilda Harden MCH (RBC) [Entitic mass] 28.8 pg Normal 26.7-34.[address] [facility] Comment on above: Performed By: #### C BC #### [facility] [address] [place] [address] Dr. Hilda Harden MCHC (RBC) [Mass/Vol] 34.0 g/dL Normal 29.9-35.[address] [facility] Comment on above: Performed By: #### C BC #### [facility] [address] [place] [address] Dr. Hilda Harden MCV (RBC) [Entitic vol] 84.9 fL Normal 81.0-99.[address] [facility] Comment on above: Performed By: #### C BC #### [facility] [address] [place] [address] Dr. Hilda Harden MONO # 0.4 103/ul Normal 0.3-0.[address] [facility] Comment on above: Performed By: #### C BC #### [facility] [address] [place] [address] Dr. Hilda Harden Monocytes/100 WBC (Bld) 6.9 % Normal 1.7-12.[address] [facility] Comment on above: Performed By: #### C BC #### [facility] [address] [place] [address] Dr. Hilda Harden NEUT # 3.0 103/ul Normal 1.4-6.[address] [facility] Comment on above: Performed By: #### C BC #### [facility] [address] [place] [address] Dr. Hilda Harden Neutrophils/100 WBC (Bld) 49.8 % Normal 43.0-75.[address] [facility] Comment on above: Performed By: #### C BC #### [facility] [address] [place] [address] Dr. Hilda Harden Platelet mean volume (Bld) [Entitic vol] 9.6 fL Normal 9.5-13.[address] [facility] Comment on above: Performed By: #### C BC #### [facility] [address] [place] [address] Dr. Hilda Harden PLT 279 103/ul Normal 150-[address] [facility] Comment on above: Performed By: #### C BC #### [facility] [address] [place] [address] Dr. Hilda Harden RBC 4.82 106/ul Normal 4.20-5.[address] [facility] Comment on above: Performed By: #### C BC #### [facility] [address] [place] [address] Dr. Hilda Harden WBC 6.1 103/ul Normal 4.0-11.[address] [facility] Comment on above: Performed By: #### C BC #### [facility] [address] [place] [address] Dr. Hilda Harden PREG QUANT HCGon 11-12-2022 HCG QUANT <1 Normal [facility] Comment on above: Performed By: #### C T/NGNA #### [facility] [address] [place] [address] Dr. Hilda Harden HCG RANGE SEE BELOW Normal [facility] Comment on above: Result Comment: 5-50 0.2-1 WEEK 50-500 1-2 WEEKS 100-5,000 2-3 WEEKS 500-10,000 3-4 WEEKS 1,000-50,000 4-5 WEEKS 10,000-100,000 5-6 WEEKS 15,000-200,000 6-8 WEEKS 10,000-100,000 2-3 MONTHS Performed By: #### C T/NGNA #### [facility] [address] [place] [address] Dr. Hilda Harden AFP (TUMOR MARKER)on 023 AFP, Serum, Tumor Marker 4.9 ng/mL Critically high 0.0-4. [address] [facility] Comment on above: Result Comment: [employer] Electrochemiluminescence Immunoassay (ECLIA) . Values obtained with different assay methods or kits cannot be used interchangeably. Results cannot be interpreted as absolute evidence of the presence or absence of malignant disease. . This test is not interpretable in females. Performed By: #### A FP. #### [facility] [address] [place] [address] Dr. Hilda Harden CA 125on 10-20-2022 Cancer Antigen (CA) 125 34.1 U/mL Normal 0.0-38.[address] [facility] Comment on above: Result Comment: [employer] Electrochemiluminescence Immunoassay (ECLIA) . Values obtained with different assay methods or kits cannot be used interchangeably. Results cannot be interpreted as absolute evidence of the presence or absence of malignant disease. Performed By: #### C A 125 #### [facility] [address] [place] [address] Dr. Hilda Harden CEAon 10-20-2022 CEA 1.3 ng/mL Normal 0.0-4.[address] [facility] Comment on above: Result Comment: Nons mokers <3.9 Smokers <5.6 . [facility] Electrochemiluminescence Immunoassay (ECLIA) . Values obtained with different assay methods or kits cannot be used interchangeably. Results cannot be interpreted as absolute evidence of the presence or absence of malignant disease. Performed By: #### C T/NGNA #### [facility] [address] [place] [address] Dr. Hilda Harden HCG QUANT TUMOR MARKERon HCG QNT TUMOR MARKER <[address] [facility] Comment on above: Result Comment: Fema [...] developed and its performance characteristics determined by [employer]. It has not been cleared or approved by the Food and Drug Administration for use as a tumor marker. . This test is not interpretable as a tumor marker in females. Performed By: #### H CGTMOR #### [facility] [address], [place] [address] Dr. Hilda Harden LDHon 10-19-2022 LDH 140 U/L Normal 81-[address] [facility] Comment on above: Performed By: #### L DH #### [facility] [address], [place] [address] Dr. Hilda Harden US PELVIS AND TRANSVAGon [...] JOY CARDOZA Date: 2022-10-15 13:53 Normal [facility] DHEA SERUMon 10-10-2022 Dehydroepiandrosterone (DHEA) 640 ng/dL Critically high 40-491 [facility] Comment on above: Result Comment: Age [...] 31 - 89 Performed By: #### D EASTON. #### [facility] [address] [place] [address] Dr. Hilda Harden DHEA-SULFATEon 10-07-2022 DHEA-Sulfate 201.0 ug/dL Normal 110.0-433. 2 [facility] Comment on above: Performed By: #### C T/NGNA #### [facility] [address] [place] [address] Dr. Hilda Harden FSHon 10-07-2022 FSH 4.1 mIU/mL Normal [facility] Comment on above: Result Comment: Adul t Female: Follicular phase 3.5 - 12.5 Ovulation phase 4.7 - 21.5 Luteal phase 1.7 - 7.7 Postmenopausal 25.8 - 134.8 Performed By: #### C T/NGNA #### [facility] [address] [place] [address] Dr. Hilda Harden LUTEINIZING HORMONE (LH)on 0 10-07-2022 LH 7.9 mIU/mL Normal [facility] Comment on above: Result Comment: Adul t Female: Follicular phase 2.4 - 12.6 Ovulation phase 14.0 - 95.6 Luteal phase 1.0 - 11.4 Postmenopausal 7.7 - 58.5 Performed By: #### C BC #### [facility] [address] [place] [address] Dr. Hilda Harden CBC AUTO DIFFon 10-06-2022 BASO # 0.0 103/ul Normal 0.0-0.[address] [facility] Comment on above: Performed By: #### C BC #### [facility] [address] [place] [address] Dr. Hilda Harden Basophils/100 WBC (Bld) 0.3 % Normal 0.2-2.[address] [facility] Comment on above: Performed By: #### C BC #### [facility] [address] [place] [address] Dr. Hilda Harden EO # 0.1 103/ul Normal 0.0-0.[address] [facility] Comment on above: Performed By: #### C BC #### [facility] [address] [place] [address] Dr. Hilda Harden Eosinophils/100 WBC (Bld) 1.8 % Normal 0.9-7.[address] [facility] Comment on above: Performed By: #### C BC #### [facility] [address] [place] [address] Dr. Hilda Harden Erythrocyte distribution width (RBC) [Ratio] 13.3 % Normal 11.0-15.[address] [facility] Comment on above: Performed By: #### C BC #### [facility] [address] [place] [address] Dr. Hilda Harden Hematocrit (Bld) [Volume fraction] 39.9 % Normal 36.0-48.[address] [facility] Comment on above: Performed By: #### C BC #### [facility] [address] [place] [address] Dr. Hilda Harden Hemoglobin (Bld) [Mass/Vol] 13.1 g/dL Normal 12.0-16.[address] [facility] Comment on above: Performed By: #### C BC #### [facility] [address] [place] [address] Dr. Hilda Harden IG # 0.02 10e3/ul Normal 0.00-0.[address] [facility] Comment on above: Performed By: #### C BC #### [facility] [address] [place] [address] Dr. Hilda Harden IG % 0.3 % Normal 0.0-0.[address] [facility] Comment on above: Performed By: #### C BC #### [facility] [address] [place] [address] Dr. Hilda Harden LYMPH # 2.1 103/ul Normal 1.2-3.[address] [facility] Comment on above: Performed By: #### C BC #### [facility] [address] [place] [address] Dr. Hilda Harden Lymphocytes/100 WBC (Bld) 31.8 % Normal 20.5-60.[address] [facility] Comment on above: Performed By: #### C BC #### [facility] [address] [place] [address] Dr. Hilda Harden MANUAL DIFF REQ NO Normal [facility] Comment on above: Performed By: #### C BC #### [facility] [address] [place] [address] Dr. Hilda Harden MCH (RBC) [Entitic mass] 27.8 pg Normal 26.7-34.[address] [facility] Comment on above: Performed By: #### C BC #### [facility] [address] [place] [address] Dr. Hilda Harden MCHC (RBC) [Mass/Vol] 32.8 g/dL Normal 29.9-35.[address] [facility] Comment on above: Performed By: #### C BC #### [facility] [address] [place] [address] Dr. Hilda Harden MCV (RBC) [Entitic vol] 84.5 fL Normal 81.0-99.[address] [facility] Comment on above: Performed By: #### C BC #### [facility] [address] [place] [address] Dr. Hilda Harden MONO # 0.5 103/ul Normal 0.3-0.[address] [facility] Comment on above: Performed By: #### C BC #### [facility] [address] [place] [address] Dr. Hilda Harden Monocytes/100 WBC (Bld) 7.8 % Normal 1.7-12.[address] [facility] Comment on above: Performed By: #### C BC #### [facility] [address] [place] [address] [address] Hilda Harden NEUT # 3.8 103/ul Normal 1.4-6.5 [facility] Comment on above: Performed By: #### C BC #### [facility] [address] [place] [address] Dr. Hilda Harden Neutrophils/100 WBC (Bld) 58.0 % Normal 43.0-75.0 [facility] Comment on above: Performed By: #### C BC #### [facility] [address] [place] [address] Dr. Hilda Harden Platelet mean volume (Bld) [Entitic vol] 9.7 fL Normal 9.5-13.5 [facility] Comment on above: Performed By: #### C BC #### [facility] [address] [place] [address] Dr. Hilda Harden PLT 266 103/ul Normal 150-450 [facility] Comment on above: Performed By: #### C BC #### [facility] [address] [place] [address] Dr. Hilda Harden RBC 4.72 106/ul Normal 4.20-5.40 [facility] Comment on above: Performed By: #### C BC #### [facility] [address] [place] [address] Dr. Hilda Harden WBC 6.6 103/ul Normal 4.0-11.0 [facility] Comment on above: Performed By: #### C BC #### [facility] [address] [place] [address] Dr. Hilda Harden FREE T4on 10-06-2022 Free T4 [Mass/Vol] 1.09 ng/dL Normal 0.78-1.34 [facility] Comment on above: Performed By: #### C T/NGNA #### [facility] [address] [place] [address] Dr. Hilda Harden GLYCOHEMOGLOBIN A1Con 2022 ADA RECOMMENDATION SEE BELOW Normal [facility] Comment on above: Result Comment: ADA RECOMMENDED LIMIT 4.0 - 6.0 ADA THERAPEUTIC TARGET < 7.0 ACTION SUGGESTED > 7.0 Performed By: #### A 1C #### [facility] [address] [place] [address] Dr. Hilda Harden Glucose [Mass/Vol] 100 mg/dL Normal [facility] Comment on above: Performed By: #### A 1C #### [facility] [address] [place] [address] Dr. Hilda Harden HbA1c (Bld) [Mass fraction] 5.1 % Normal 4.5-6.[address] [facility] Comment on above: Performed By: #### A 1C #### [facility] [address] [place] [address] Dr. Hilda Harden TSHon 10-06-2022 TSH 1.199 uIU/mL Normal 0.516-4.[address] [facility] Comment on above: Performed By: #### T SH #### [facility] [address] [place] [address] Dr. Hilda Harden CHLAMYDIA/GONOCOCCUS RON ( AB/URINE/PAPon 05-07-2022 Chlamydia trachomatis, RON Negative Normal Negative [facility] Comment on above: Performed By: #### C T/NGNA #### [facility] [address] [place] [address] Dr. Hilda Harden Neisseria gonorrhoeae, RON Negative Normal Negative [facility] Comment on above: Performed By: #### C T/NGNA #### [facility] [address] [place] [address] Dr. Hilda Harden VAGINITIS/VAGINOSIS DNA PROB Harinder 05-06-2022 Shannen species Negative Normal Negative [facility] Comment on above: Performed By: #### C BC #### [facility] [address] [place] [address] Dr. Hilda Harden Gardnerella vaginalis Positive Abnormal Negative [facility] Comment on above: Performed By: #### C BC #### [facility] [address] [place] [address] Dr. Hilda Harden Trichomonas vaginalis Negative Normal Negative [facility] Comment on above: Performed By: #### C BC #### [facility] [address] [address] [address] Hilda Harden Basophils Auto (Bld) [#/Vol] Ordered By: Severo Lea on 02-07-2022 Basophils (Bld) [#/Vol] 0.0 10*3/uL 0.0-0.1 [facility] Basophils/100 WBC Auto (Bld) Ordered By: Severo Lea on 02-07-2022 Basophils/100 WBC (Bld) 0.6 % [facility] Bilirubin Test strip Ql (U)O rdered By: Severo Lea on 02-07-2022 Bilirubin Ql (U) Negative Negative [facility] Blood hemoglobin measurement (mass/volume)Ordered By: Severo Lea on 02-07-2022 Hemoglobin (Bld) [Mass/Vol] 13.8 g/dL 12.0-16.0 [facility] Blood leukocytes automated c ount (number/volume)Ordered By: Severo Lea on 02-07-2022 WBC (Bld) [#/Vol] 8.5 10*3/uL 4.5-13.5 [facility] Body fluid albumin measureme nt (mass/volume)Ordered By: Severo Lea on 02-07-2022 Albumin (Body fld) [Mass/Vol] 4.2 g/dL 3.2-5.5 [facility] Color Auto (U)Ordered By: Maren Lea on 02-07-2022 Color (U) Yellow Yellow [facility] Creatinine and Glomerular fi ltration rate.predicted panel (S/P/Bld)Ordered By: Severo Lea on 02-07-2022 Creatinine [Mass/Vol] 0.82 mg/dL 0.44-1.03 [facility] Eosinophils Auto (Bld) [#/Vo l]Ordered By: Severo Lea on 02-07-2022 Eosinophils (Bld) [#/Vol] 0.1 10*3/uL 0.0-0.7 [facility] Eosinophils/100 WBC Auto (Bl d)Ordered By: Severo Lea on 02-07-2022 Eosinophils/100 WBC (Bld) 0.7 % [facility] Erythrocyte distribution wid th Auto (RBC) [Ratio]Ordered By: Severo Lea on 02-07-2022 Erythrocyte distribution width (RBC) [Ratio] 14.2 % 11.9-15.3 [facility] Estimated glomerular filtrat ion rate (GFR) non- AmericanOrdered By: Severo Lea on 02-07-2022 GFR/1.73 sq M.predicted among non-blacks MDRD (S/P/Bld) [Vol rate/Area] > 60 mL/Min [facility] Globulin Calc (S) [Mass/Vol] Ordered By: Severo Lea on 02-07-2022 Globulin (S) [Mass/Vol] 2.4 g/dL [facility] HCG ( test) IA.rapi d Ql (U)Ordered By: Severo Lea on 02-07-2022 HCG ( test) Ql (U) Negative [facility] Hematocrit Auto (Bld) [Volum e fraction]Ordered By: Severo Lae on 02-07-2022 Hematocrit (Bld) [Volume fraction] 41.5 % 36.0-46.0 [facility] Ketones Auto test strip (U) [Mass/Vol]Ordered By: Severo Lea on 02-07-2022 Ketones (U) [Mass/Vol] Trace Negative Fi [facility] - Chemistry and C hemistry - challengeOrdered By: Severo Lea on 02-07-2022 Lipase [Catalytic activity/Vol] 53.0 U/L [facility] - Hematology and Cell countsOrdered By: Severo Lea on 02-07-2022 Nucleated RBC/100 WBC (Bld) [Ratio] 0.0 % 0-0.5 [facility] Lymphocytes Auto (Bld) [#/Vo l]Ordered By: Severo Lea on 02-07-2022 Lymphocytes (Bld) [#/Vol] 2.0 10*3/uL 1.20-4.8 [facility] Lymphocytes/100 WBC Auto (Bl d)Ordered By: Severo Lea on 02-07-2022 Lymphocytes/100 WBC (Bld) 23.8 % [facility] MCH Auto (RBC) [Entitic mass ]Ordered By: Severo Lea on 02-07-2022 MCH (RBC) [Entitic mass] 28.6 pg 25.0-35.0 [facility] MCHC Auto (RBC) [Mass/Vol]Or dered By: Severo Lea on 02-07-2022 MCHC (RBC) [Mass/Vol] 33.3 g/dL 31.0-37.0 [facility] MCV Auto (RBC) [Entitic vol] Ordered By: Severo Lea on 02-07-2022 MCV (RBC) [Entitic vol] 85.8 fL 78-102 [facility] Monocytes Auto (Bld) [#/Vol] Ordered By: Severo Lea on 02-07-2022 Monocytes (Bld) [#/Vol] 0.6 10*3/uL 0.1-1.00 [facility] Monocytes/100 WBC Auto (Bld) Ordered By: Severo Lea on 02-07-2022 Monocytes/100 WBC (Bld) 7.6 % [facility] Neutrophils Auto (Bld) [#/Vo l]Ordered By: Severo Lea on 02-07-2022 Neutrophils (Bld) [#/Vol] 5.7 10*3/uL 1.2-7.7 [facility] Neutrophils/100 WBC Auto (Bl d)Ordered By: Severo Lea on 02-07-2022 Neutrophils/100 WBC (Bld) 67.3 % [facility] Nitrite Test strip Ql (U)Ord ered By: Severo Lea on 02-07-2022 Nitrite Ql (U) Negative Negative [facility] No Panel InformationOrdered By: Severo Lea on 02-07-2022 Estimated GFR () > 60 mL/Min [facility] Comment on above: GFR estimated refere nce range: According to KDOQI guidelines, <60 ml/min/1.73m2 is sufficient to diagnose a patient with chronic kidney disease. Pharmacy Creatinine Clearance (Chem 100.48 [facility] Platelet mean volume Auto (B ld) [Entitic vol]Ordered By: Severo Lea on 02-07-2022 Platelet mean volume (Bld) [Entitic vol] 8.6 fL 6.3-10.7 [facility] Platelets Auto (Bld) [#/Vol] Ordered By: Severo Lea on 02-07-2022 Platelets (Bld) [#/Vol] 304 10*3/uL 150-450 [facility] Protein Auto test strip (U) [Mass/Vol]Ordered By: Severo Lea on 02-07-2022 Protein (U) [Mass/Vol] Negative Negative [facility] Protein [Mass/volume] in Ser um or PlasmaOrdered By: Severo Lea on 02-07-2022 Protein [Mass/Vol] 6.6 g/dL 6.1-7.9 [facility] RBC Auto (Bld) [#/Vol]Ordere d By: Severo Lea on 02-07-2022 RBC (Bld) [#/Vol] 4.84 10*6/uL 4.10-5.10 [facility] Serum or plasma alanine guerra otransferase measurement without P-5'-P (enzymatic activiOrdered By: Severo Lea on 02-07-2022 ALT No additional P-5'-P [Catalytic activity/Vol] 14 U/L 10-60 [facility] Serum or plasma albumin/glob ulin mass ratioOrdered By: Severo Lea on 02-07-2022 Albumin/Globulin [Mass ratio] 1.8 {ratio} [facility] Serum or plasma alkaline wil sphatase measurement (enzymatic activity/volume)Ordered By: Severo Lea on 02-07-2022 ALP [Catalytic activity/Vol] 46 U/L 32-92 [facility] Serum or plasma amylase jamar urement (enzymatic activity/volume)Ordered By: Severo Lea on 02-07-2022 Amylase [Catalytic activity/Vol] 70 U/L 28-100 [facility] Serum or plasma aspartate am inotransferase measurement (enzymatic activity/volume)Ordered By: Severo Lea on 02-07-2022 AST [Catalytic activity/Vol] 15 U/L 10-42 [facility] Serum or plasma calcium jamar urement (mass/volume)Ordered By: Severo Lea on 02-07-2022 Calcium [Mass/Vol] 9.3 mg/dL 8.2-10.2 [facility] Serum or plasma chloride payton surement (moles/volume)Ordered By: Severo Lea on 02-07-2022 Chloride [Moles/Vol] 107 mmol/L 95-114 [facility] Serum or plasma glucose jamar urement (mass/volume)Ordered By: Severo Lea on 02-07-2022 Glucose [Mass/Vol] 94 mg/dL 70-100 [facility] Comment on above: ADA recommended refe rence range Random Glucose Reference Range is dependent on time and content of last meal. Glucose of more than 200 mg/dL in a nonstressed, ambulatory subject supports the diagnosis of Diabetes Mellitus. Serum or plasma potassium me asurement (moles/volume)Ordered By: Severo Lea on 02-07-2022 Potassium [Moles/Vol] 4.2 mmol/L 3.5-5.1 [facility] Serum or plasma sodium measu rement (moles/volume)Ordered By: Severo Lea on 02-07-2022 Sodium [Moles/Vol] 140 mmol/L 136-146 [facility] Serum or plasma total biliru bin measurement (mass/volume)Ordered By: Severo Lea on 02-07-2022 Bilirubin [Mass/Vol] 0.5 mg/dL 0.3-1.2 [facility] Serum or plasma total carbon dioxide measurement (moles/volume)Ordered By: Severo Lea on 02-07-2022 CO2 [Moles/Vol] 25.1 mmol/L 22.0-30.0 [facility] Serum or plasma urea nitroge n measurement (mass/volume)Ordered By: Severo Lea on 02-07-2022 Urea nitrogen [Mass/Vol] 11 mg/dL 9- [facility] Specific gravity Auto test s trip (U) [Rel density]Ordered By: Severo Lea on 02-07-2022 Specific gravity (U) [Rel density] 1.027 1.001-1.03 0 [facility] Urine clarity by refractomet ry automatedOrdered By: Severo Lea on 02-07-2022 Clarity Refractometry automated (U) Clear Clear [facility] Urine glucose measurement by automated test strip (mass/volume)Ordered By: Severo Lea on 02-07-2022 Glucose Auto test strip (U) [Mass/Vol] Normal mg/dL Normal [facility] Urine hemoglobin detection b y automated test stripOrdered By: Severo Lea on 02-07-2022 Hemoglobin Auto test strip Ql (U) Negative Negative [facility] Urine leukocyte esterase det ection by automated test stripOrdered By: Severo Lea on 02-07-2022 Leukocyte esterase Auto test strip Ql (U) Negative Negative [facility] Urobilinogen Auto test strip (U) [Mass/Vol]Ordered By: Severo Lea on 02-07-2022 Urobilinogen (U) [Mass/Vol] Normal mg/dL Normal [facility] pH Auto test strip (U)Ordere d By: Severo Lea on 02-07-2022 pH (U) 6.0 [pH] 5.0-9.0 [facility] COVID-19 SOFIAOrdered By: Juve Morris on 11-16-2021 SARS-CoV+SARS-CoV-2 (COVID-19) Ag IA.rapid Ql (Resp) Negative Negative [facility] Comment on above: This is a duplicate Ann SARS Antigen (DEMETRIUS) result to be used for statistical tracking purpose only. No Panel InformationOrdered By: Augustin Morris on 11-16-2021 SARS Antigen (LFIA) [facility] Vital Signs Date Time Vital Sign Value Performing Clinician Facility 11-21-2024 13:12-0500 Body mass index (BMI) [Ratio] 26.33 kg/m2 Melia Potter PA Work Phone: [facility] 11-21-2024 13:12-0500 Body weight 69.58 kg Melia Potter PA Work Phone: [facility] 11-21-2024 13:12-0500 Diastolic blood pressure 80 mm[Hg] Melia Potter PA Work Phone: [facility] 11-21-2024 13:12-0500 Systolic blood pressure 128 mm[Hg] Melia Pateley PA Work Phone: [facility] 10-29-2024 08:57-0500 Body height 162.56 cm Melia Warchol [employer] TECHNICIAN-C Work Phone: [facility] 10-29-2024 08:57-0500 Body mass index (BMI) [Ratio] 25.3 kg/m2 Melia Warchol [employer] TECHNICIAN-C Work Phone: [facility] 10-29-2024 08:57-0500 Body weight 67 kg Melia Warchol [employer] TECHNICIAN-C Work Phone: [facility] 10-22-2024 10:16-0500 Body mass index (BMI) [Ratio] 26.06 kg/m2 Melia Stacy PA Work Phone: [facility] 10-22-2024 10:16-0500 Body weight 68.86 kg Melia Stacy PA Work Phone: [facility] 10-22-2024 10:16-0500 Diastolic blood pressure 80 mm[Hg] Melia Stacy PA Work Phone: [facility] 10-22-2024 10:16-0500 Systolic blood pressure 110 mm[Hg] Melia Stacy PA Work Phone: [facility] 10-17-2024 22:42-0500 Diastolic blood pressure 95 mm[Hg] Melia Warchol [employer] TECHNICIAN-C Work Phone: [facility] 10-17-2024 22:42-0500 Heart rate 85 /min Melia Warchol [employer] TECHNICIAN-C Work Phone: [facility] 10-17-2024 22:42-0500 Respiratory rate 20 /min Melia Warchol [employer] TECHNICIAN-C Work Phone: [facility] 10-17-2024 22:42-0500 SaO2% (BldA) [Mass fraction] 100 % Melia Warchol [employer] TECHNICIAN-C Work Phone: [facility] 10-17-2024 22:42-0500 Systolic blood pressure 138 mm[Hg] Melia Warchol [employer] TECHNICIAN-C Work Phone: [facility] 10-17-2024 19:50-0500 Body height 162.56 cm Melia Warchol [employer] TECHNICIAN-C Work Phone: [facility] 10-17-2024 19:50-0500 Body temperature 97.5 [degF] Melia Warchol [employer] TECHNICIAN-C Work Phone: [facility] 10-17-2024 19:50-0500 Body weight 67.7 kg Melia Warchol [employer] TECHNICIAN-C Work Phone: [facility] 09-03-2024 10:32-0500 Body height 162.6 cm Melia Warchol [employer] TECHNICIAN Work Phone: [facility] 09-03-2024 10:32-0500 Body mass index (BMI) [Ratio] 26.02 kg/m2 Melia Warchol [employer] TECHNICIAN Work Phone: [facility] 09-03-2024 10:32-0500 Body temperature 97.2 [degF] Melia Warchol [employer] SYSTEM[employer] TECHNICIAN Work Phone: [facility] 09-03-2024 10:32-0500 Body weight 68.77 kg Melia Warchol [employer] TECHNICIAN Work Phone: [facility] 09-03-2024 10:32-0500 Diastolic blood pressure 64 mm[Hg] Melia Warchol [employer] SYSTEM[employer] TECHNICIAN Work Phone: [facility] 09-03-2024 10:32-0500 Heart rate 87 /min Melia Warchol [employer] TECHNICIAN Work Phone: [facility] 09-03-2024 10:32-0500 SaO2% (BldA) [Mass fraction] 99 % Melia Warchol [employer] TECHNICIAN Work Phone: [facility] 09-03-2024 10:32-0500 Systolic blood pressure 118 mm[Hg] Melia Warchol [employer] SYSTEM[employer] TECHNICIAN Work Phone: [facility] 07-27-2024 10:31-0500 Body height 163.8 cm Melia Warchol [employer] TECHNICIAN Work Phone: [facility] 07-27-2024 10:31-0500 Body mass index (BMI) [Ratio] 25.05 kg/m2 Melia Warchol [employer] TECHNICIAN Work Phone: [facility] 07-27-2024 10:31-0500 Body weight 67.22 kg Melia Warchol [employer] TECHNICIAN Work Phone: [facility] 07-27-2024 10:31-0500 Diastolic blood pressure 80 mm[Hg] Melia Warchol [employer] SYSTEM[employer] TECHNICIAN Work Phone: [facility] 07-27-2024 10:31-0500 Heart rate 90 /min Melia Warchol [employer] TECHNICIAN Work Phone: [facility] 07-27-2024 10:31-0500 Respiratory rate 18 /min Melia Warchol [employer] SYSTEM[employer] TECHNICIAN Work Phone: [facility] 07-27-2024 10:31-0500 SaO2% (BldA) [Mass fraction] 98 % Melia Warchol [employer] TECHNICIAN Work Phone: [facility] 07-27-2024 10:31-0500 Systolic blood pressure 136 mm[Hg] Melia Warchol [employer] SYSTEMS TECHNICIAN Work Phone: [facility] 06-18-2024 14:33-0400 Body height 163.8 cm Melia Warchol [employer] SYSTEM[employer] TECHNICIAN Work Phone: [facility] 06-18-2024 14:33-0400 Body mass index (BMI) [Ratio] 25.45 kg/m2 Melia Warchol [employer] SYSTEM[employer] TECHNICIAN Work Phone: [facility] 06-18-2024 14:33-0400 Body temperature 98.2 [degF] Melia Warchol [employer] SYSTEMS TECHNICIAN Work Phone: [facility] 06-18-2024 14:33-0400 Body weight 68.31 kg Melia Warchol [employer] SYSTEMS TECHNICIAN Work Phone: [facility] 06-18-2024 14:33-0400 Diastolic blood pressure 80 mm[Hg] Melia Warchol [employer] SYSTEM[employer] TECHNICIAN Work Phone: [facility] 06-18-2024 14:33-0400 Heart rate 87 /min Melia [place] CONTROL SYSTEMS TECHNICIAN Work Phone: [facility] 06-18-2024 14:33-0400 Respiratory rate 18 /min Melia Warchol CONTROL SYSTEMS TECHNICIAN Work Phone: [facility] 06-18-2024 14:33-0400 SaO2% (BldA) [Mass fraction] 100 % Melia Warchol CONTROL SYSTEMS TECHNICIAN Work Phone: [facility] 06-18-2024 14:33-0400 Systolic blood pressure 138 mm[Hg] Melia Warchol CONTROL SYSTEMS TECHNICIAN Work Phone: [facility] 02-07-2022 20:47-0400 Body height 161.29 cm MD Joe Rosenberg Work Phone: [facility] 02-07-2022 20:47-0400 Body mass index (BMI) [Percentile] Per age and sex 79.7 % MD Joe Rosenberg Work Phone: [facility] 02-07-2022 20:47-0400 Body mass index (BMI) [Ratio] 24.7 kg/m2 MD Joe Rosenberg Work Phone: [facility] 02-07-2022 20:47-0400 Body weight 64.41 kg MD Joe Rosenberg Work Phone: [facility] 02-07-2022 20:46-0400 Body temperature 98.6 [degF] MD Joe Rosenberg Work Phone: [facility] 02-07-2022 20:46-0400 Diastolic blood pressure 84 mm[Hg] MD Joe Rosenberg Work Phone: [facility] 02-07-2022 20:46-0400 Heart rate 95 /min MD Joe Rosenberg Work Phone: [facility] 02-07-2022 20:46-0400 Respiratory rate 18 /min MD Joe Rosenberg Work Phone: [facility] 02-07-2022 20:46-0400 SaO2% (BldA) [Mass fraction] 100 % MD Joe Rosenberg Work Phone: [facility] 02-07-2022 20:46-0400 Systolic blood pressure 138 mm[Hg] MD Joe Rosenberg Work Phone: [facility] Encounters Encounter Date Encounter Type Care Provider Facility Start: 12-12-2024 End: 12-12-2024 Patient encounter procedure Melia Mantilla CONTROL SYSTEMS TECHNICIAN-C Work Phone: [facility] [address] Closed Work Phone: Start: 12-12-2024 End: 12-12-2024 ambulatory Melia Mantilla CONTROL SYSTEMS TECHNICIAN-C Work Phone: [facility] Work Phone: Start: 11-22-2024 End: 11-22-2024 Telephone encounter Melia Mantilla CONTROL SYSTEMS TECHNICIAN Work Phone: [facility] Start: 11-21-2024 End: 11-21-2024 Bamboo flowsheet Melia DODSON Work Phone: [facility] Start: 11-21-2024 End: 11-21-2024 Bamboo flowsheet Melia DODSON Work Phone: [facility] Start: 11-21-2024 End: 11-21-2024 Patient encounter procedure Melia DODSON Work Phone: [facility] Start: 11-21-2024 End: 11-21-2024 Periodic preventive med est patient 18-39 yrs Melia DODSON Work Phone: [facility] Comment on above: Well woman exam with routine gynecological exam; Complex ovarian cyst; Nausea; Encounter for initial prescription of contraceptive pills Start: 11-21-2024 End: 11-21-2024 ambulatory MELIA POTTER Not Available Start: 11-20-2024 End: 11-20-2024 Patient encounter procedure Melia Costapillo CONTROL SYSTEMS TECHNICIAN-C Work Phone: [facility] [address] [place] Work Phone: Start: 11-20-2024 End: 11-20-2024 ambulatory Melia Hernán CONTROL SYSTEMS TECHNICIAN-C Work Phone: [facility] Work Phone: Start: 11-09-2024 End: 11-12-2024 Telephone encounter Melia Igorpillo CONTROL SYSTEMS TECHNICIAN Work Phone: [facility] Start: 11-06-2024 End: 11-06-2024 ambulatory MELIA POTTER Not Available Start: 10-29-2024 End: 10-29-2024 Patient encounter procedure Melia Hernán CONTROL SYSTEMS TECHNICIAN-C Work Phone: [facility] Work Phone: Start: 10-22-2024 End: 10-22-2024 Office outpatient visit 15 minutes Melia DODSON Work Phone: [facility] Comment on above: Abdominal cramping; Cyst of left ovary Start: 10-22-2024 End: 10-22-2024 ambulatory MELIA POTTER Not Available Start: 10-17-2024 End: 10-18-2024 Emergency department patient visit Melia Mantilla CONTROL SYSTEMS TECHNICIAN-C Work Phone: [facility]Emergency Room Work Phone: Start: 10-15-2024 End: 10-15-2024 Telephone encounter Melia Costachol CONTROL SYSTEMS TECHNICIAN Work Phone: [facility] Start: 09-24-2024 End: 09-24-2024 Telephone encounter Melia Costachol CONTROL SYSTEMS TECHNICIAN Work Phone: [facility] Start: 09-03-2024 End: 09-03-2024 Bamboo flowsheet Melia Costachol CONTROL SYSTEMS TECHNICIAN Work Phone: [facility] Start: 09-03-2024 End: 09-03-2024 Bamboo flowsheet Melia Costachol CONTROL SYSTEMS TECHNICIAN Work Phone: [facility] Start: 09-03-2024 End: 09-03-2024 ambulatory MELIA MANTILLA Not Available Start: 09-03-2024 End: 09-03-2024 Office outpatient visit 25 minutes Melia Mantilla CONTROL SYSTEMS TECHNICIAN Work Phone: [facility] Comment on above: Chronic midline low back pain without sciatica (Primary Dx); Lumbar radiculopathy Start: 08-28-2024 End: 08-28-2024 Telephone encounter Melia Mantilla CONTROL SYSTEMS TECHNICIAN Work Phone: [facility] Start: 08-23-2024 End: 08-23-2024 ambulatory Melia Mantilla CONTROL SYSTEMS TECHNICIAN-C Work Phone: [facility] Work Phone: Start: 08-23-2024 End: 08-23-2024 Discharged Recurring Melia Costachol CONTROL SYSTEMS TECHNICIAN-C Work Phone: [facility] [facility] Start: 07-27-2024 End: 07-27-2024 Bamboo flowsheet Melia Costachol CONTROL SYSTEMS TECHNICIAN Work Phone: [facility] Start: 07-27-2024 End: 07-27-2024 Bamboo flowsheet Melia Mantilla CONTROL SYSTEMS TECHNICIAN Work Phone: [facility] Start: 07-27-2024 End: 07-27-2024 ambulatory MELIA MANTILLA Not Available Start: 07-27-2024 End: 07-27-2024 Office outpatient visit 25 minutes Melia Mantilla CONTROL SYSTEMS TECHNICIAN Work Phone: [facility] Comment on above: 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); Person consulting for explanation of examination or test finding; Bilateral sacroiliitis (CMS/HCC) Start: 07-25-2024 End: 07-25-2024 Patient encounter procedure CONTROL SYSTEMS TECHNICIAN-C Melia Mantilla Work Phone: [facility]XRay [facility] Work Phone: Start: 07-25-2024 End: 07-25-2024 ambulatory CONTROL SYSTEMS TECHNICIAN-C Melia Mantilla Work Phone: [facility] Work Phone: Start: 07-25-2024 Encounter for genera l adult medical examination without abnormal findings Melia Costapillo [facility] Start: 06-18-2024 End: 06-18-2024 Office outpatient visit 25 minutes Melia Mantilla CONTROL SYSTEMS TECHNICIAN Work Phone: [facility] Comment on above: Adult general medica l examination (Primary Dx); Muscle cramping; Bilateral sacroiliitis (CMS/HCC); Left lumbar radiculopathy; 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-sided sciatica Start: 06-18-2024 End: 06-18-2024 Patient encounter status Melia Mantilla CONTROL SYSTEMS TECHNICIAN Work Phone: [facility] Start: 06-18-2024 End: 06-18-2024 ambulatory MELIA MANTILLA Not Available Start: 06-18-2024 End: 06-18-2024 Bamboo flowsheet Melia Mantilla CONTROL SYSTEMS TECHNICIAN Work Phone: [facility] Start: 06-18-2024 End: 06-18-2024 Bamboo flowsheet Melia Mantilla CONTROL SYSTEMS TECHNICIAN Work Phone: [facility] Start: 11-04-2023 End: 11-04-2023 ambulatory MD Joe Rosenberg Work Phone: [facility] Work Phone: Start: 11-04-2023 End: 11-04-2023 Departed Referred MD Joe Rosenberg Work Phone: [facility] Path [facility] Start: 11-03-2023 Clinisync Result Encounter Curtis Sandra DO Work Phone: [facility] Unsolicited Start: 11-03-2023 Clinisync Result Encounter Curtis Sandra DO Work Phone: [facility] Unsolicited Start: 01-10-2023 End: 01-11-[address] JOE ROSENBERG . Facility:[facility] Start: 11-12-2022 End: 11-12-[address] CURTIS FLORES . Facility:[facility] Start: 11-05-2022 Encounter for other preprocedural examination DR CURTIS FLORES . [facility] Start: 11-01-2022 End: 11-02-[address] CURTIS FLORES . Facility:[facility] Start: 11-01-2022 End: 11-02-2022 Encounter for other preprocedural examination DR CURTIS FLORES . Facility:[facility] Start: 10-19-2022 End: 10-20-[address] CURTIS FLORES . Facility:[facility] Start: 10-15-2022 End: 10-16-[address] CURTIS FLORES . Facility:[facility] Start: 10-06-2022 End: 10-07-[address] CURTIS FLORES . Facility:[facility] Start: 05-04-2022 End: 05-04-[address] REBECCA GIBBS . Facility:[facility] Start: 02-07-2022 End: 02-07-2022 Emergency department patient visit MD Joe Rosenberg Work Phone: [facility]Emergency Room Start: 11-16-2021 End: 11-16-2021 Patient encounter procedure MD Joe Rosenberg Work Phone: [facility] Swab Procedures Date Procedure Procedure Detail Performing Clinician Start: 12-12-2024 MR lumbar spine wo con Melia Mantilla CONTROL SYSTEMS TECHNICIAN-C Work Phone: Start: 11-20-2024 Carcinoembryonic antigen cea Melia Mantilla Comment on above: Result Comment: Lauren cao tumor marker results determined by assays using different manufacturers or methods may not be comparable. [facility] inventory control assistant and method: NILS UNICEL DXI, 2 SITE IMMUNOENZYMATIC ?SANDWICH? ASSAY. PERFORMED BY: [place] [address] PATHOLOGIST [employer] OPPORTUNITY OFFICER CORNELIUS MARK M.D. Performed By: #### C EA, HCGQNT #### [place] [address] [place] #### AFPTM, CA125, LDI #### [facility] , Start: 10-22-2024 Urine test visual color cmprsn meths Melia DODSON Work Phone: Start: 07-25-2024 Plain X-ray of sacro iliac joint CONTROL SYSTEMS TECHNICIAN-C Melia Mantilla Work Phone: Start: 07-25-2024 X-ray of lumbar spin e, two or three views CONTROL SYSTEMS TECHNICIAN-C Melia Mantilla Work Phone: Start: 11-03-2023 [facility] Curtis wang DO Work Phone: Start: 11-16-2021 SARS Antigen (LFIA) MD Joe Rosenberg Work Phone: Plan of Treatment Date Care Activity Detail Author Start: 12-25-2024 Influenza vaccination Influenza Vacc ine (#1) [facility] Comment on above: Postponed from 05/20 (Patient Refused) Start: 12-20-2024 End: 12-20-2024 Patient encounter procedure 12/20/2024 9:40 AM EDT Office Visit [facility] [address] [place] [address] Curtis Flores, DO [address] [place] [address] [facility] Start: 12-18-2024 End: 12-18-2024 Professional / ancillary services management 12/18/2024 8:00 AM EDT Ancillary Procedure [facility] [address] [place] [id number] [facility] Start: 11-21-2024 End: 11-21-2025 US Pelvis US Pelvis w/ TV Imaging Routine Complex ovarian cyst Expected: 11/21/2024, Expires: 11/21/2025 [facility] Comment on above: Expected: 11/21/2024 , Expires: 11/21/2025 Start: 11-21-2024 End: 11-21-2024 Patient encounter procedure [facility] Comment on above: Arrived Start: 11-20-2024 [facility] Start: 11-12-2024 End: 11-12-2025 MR Lumbar spine WO contrast MR lumbar spine wo contrast Imaging Routine 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-sided sciatica Left lumbar radiculopathy Expected: 11/12/2024, Expires: 11/12/2025 [facility] Work Phone: Comment on above: Expected: 11/12/2024 , Expires: 11/12/2025 Start: 11-06-2024 End: 11-06-2024 Professional / ancillary services management 11/06/2024 1:00 PM EST Ancillary Procedure [facility] [address] [place] [phone] [facility] Start: 10-22-2024 End: 10-22-2025 US Pelvis US Pelvis w/ TV Imaging Routine Abdominal cramping Cyst of left ovary Expected: 10/22/2024, Expires: 10/22/2025 [facility] Work Phone: Comment on above: Expected: 10/22/2024 , Expires: 10/22/2025 Start: 09-21-2024 Influenza vaccination Influenza Vacc ine (#1) [facility] Comment on above: Postponed from 05/20 (Patient Refused) Start: 09-03-2024 End: 09-03-2024 Patient encounter procedure 09/03/2024 10:20 AM EST Office Visit [facility] [address] [place] [address] Melia Mantilla, CONTROL SYSTEMS TECHNICIAN [address] [place] [address] [facility] Start: 07-02-2024 End: 07-02-2024 Patient encounter procedure 07/02/2024 2:40 PM EDT Office Visit [facility] [address] [place] [address] Melia Mantilla CONTROL SYSTEMS TECHNICIAN [address] [place] [address] [facility] Start: 06-18-2024 End: 06-18-2024 Patient encounter procedure 06/18/2024 2:20 PM EDT Office Visit [facility] [address] [place] [address] Melia Mantilla CONTROL SYSTEMS TECHNICIAN [address] [place] [address] Arrived [facility] Comment on above: Arrived Start: 05-20-2024 Influenza vaccination Influenza Vacc ine (#1) [facility] CBC W Auto Different ial panel - Blood CBC auto differential Lab Routine Adult general medical examination Ordered: 06/18/2024 [facility] Comment on above: Ordered: 06/18/2024 Comprehensive metabo lic 2000 panel - Serum or Plasma Comprehensive metabolic panel Lab Routine Adult general medical examination Ordered: 06/18/2024 [facility] Comment on above: Ordered: 06/18/2024 Cytology Cervical or vaginal smear or scraping study Pap Smear Pathology and Cytology Routine Well woman exam with routine gynecological exam Ordered: 11/21/2024 [facility] Work Phone: Comment on above: Ordered: 11/21/2024 Magnesium [Mass/volu me] in Serum or Plasma Magnesium Lab Routine Muscle cramping Ordered: 06/18/2024 [facility] Comment on above: Ordered: 06/18/2024 MR Lumbar spine WO contrast MR lumbar spine wo contrast Imaging Routine Chronic midline low back pain without sciatica Lumbar radiculopathy Ordered: 09/03/2024 [facility] Work Phone: Comment on above: Ordered: 09/03/2024 Patient Education [facility] Work Phone: Patient referral [facility] Work Phone: XR Lumbar spine 2 or 3 Views XR lumbar spine 2 or 3 views Imaging Routine Left lumbar radiculopathy 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-sided sciatica Ordered: 06/18/2024 [facility] Work Phone: Comment on above: Ordered: 06/18/2024 XR Sacroiliac Joint 3 Views XR sacroiliac joints 3+ views Imaging Routine Left lumbar radiculopathy 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-sided sciatica Ordered: 06/18/2024 [facility] Comment on above: Ordered: 06/18/2024 Immunizations Immunization Date Immunization Notes Care Provider O[facility] 06-22-2021 meningococcal oligosaccharide (groups A, C, Y and W-135) diphtheria toxoid conjugate vaccine (MCV4O) Melia Mantilla CONTROL SYSTEMS TECHNICIAN Work Phone: [facility] 05-04-2016 meningococcal polysaccharide (groups A, C, Y and W-135) diphtheria toxoid conjugate vaccine (MCV4P) Melia Mantilla CONTROL SYSTEMS TECHNICIAN Work Phone: [facility] 05-04-2016 tetanus toxoid, redu jimenez diphtheria toxoid, and acellular pertussis vaccine, adsorbed Melia Mantilla CONTROL SYSTEMS TECHNICIAN Work Phone: [facility] 03-06-2009 diphtheria, tetanus toxoids and acellular pertussis vaccine, unspecified formulation Melia Mantilla CONTROL SYSTEMS TECHNICIAN Work Phone: [facility] 03-06-2009 hepatitis A vaccine, pediatric/adolescent dosage, 2 dose schedule Melia Mantilla CONTROL SYSTEMS TECHNICIAN Work Phone: [facility] 03-06-2009 measles, mumps and r ubella virus vaccine Melia Mantilla CONTROL SYSTEMS TECHNICIAN Work Phone: [facility] 03-06-2009 poliovirus vaccine, inactivated Melia Igorchol CONTROL SYSTEMS TECHNICIAN Work Phone: [facility] 03-06-2009 varicella virus vaccine Melia Warchol CONTROL SYSTEMS TECHNICIAN Work Phone: [facility] 01-06-2007 diphtheria, tetanus toxoids and acellular pertussis vaccine, unspecified formulation Melia Warchol CONTROL SYSTEMS TECHNICIAN Work Phone: [facility] 01-06-2007 haemophilus influenz ae type b vaccine, PRP-T conjugate Melia Warchol CONTROL SYSTEMS TECHNICIAN Work Phone: [facility] 01-06-2007 hepatitis A vaccine, pediatric/adolescent dosage, 2 dose schedule Melia Warchol CONTROL SYSTEMS TECHNICIAN Work Phone: [facility] 01-06-2007 measles, mumps, rube lla, and varicella virus vaccine Melia Warchol CONTROL SYSTEMS TECHNICIAN Work Phone: [facility] 01-06-2007 pneumococcal conjuga te vaccine, 7 valent Melia Warchol CONTROL SYSTEMS TECHNICIAN Work Phone: [facility] 05-22-2004 diphtheria, tetanus toxoids and acellular pertussis vaccine, unspecified formulation Melia Warchol CONTROL SYSTEMS TECHNICIAN Work Phone: [facility] 05-22-2004 haemophilus influenz ae type b vaccine, PRP-T conjugate Melia Warchol CONTROL SYSTEMS TECHNICIAN Work Phone: [facility] 05-22-2004 hepatitis B vaccine, pediatric or pediatric/adolescent dosage Melia Warchol CONTROL SYSTEMS TECHNICIAN Work Phone: [facility] 05-22-2004 pneumococcal conjuga te vaccine, 7 valent Melia Warchol CONTROL SYSTEMS TECHNICIAN Work Phone: [facility] 05-22-2004 poliovirus vaccine, inactivated Melia Igorchol CONTROL SYSTEMS TECHNICIAN Work Phone: [facility] 03-05-2004 diphtheria, tetanus toxoids and acellular pertussis vaccine, unspecified formulation Melia Warchol CONTROL SYSTEMS TECHNICIAN Work Phone: [facility] 03-05-2004 haemophilus influenz ae type b vaccine, PRP-T conjugate Melia Warchol CONTROL SYSTEMS TECHNICIAN Work Phone: [facility] 03-05-2004 hepatitis B vaccine, pediatric or pediatric/adolescent dosage Melia Warchol CONTROL SYSTEMS TECHNICIAN Work Phone: [facility] 03-05-2004 pneumococcal conjuga te vaccine, 7 valent Melia Mantilla CONTROL SYSTEMS TECHNICIAN Work Phone: [facility] 03-05-2004 poliovirus vaccine, inactivated Melia Mantilla CONTROL SYSTEMS TECHNICIAN Work Phone: [facility] 2003 diphtheria, tetanus toxoids and acellular pertussis vaccine, unspecified formulation Melia Mantilla CONTROL SYSTEMS TECHNICIAN Work Phone: [facility] 2003 haemophilus influenz ae type b vaccine, PRP-T conjugate Melia Mantilla CONTROL SYSTEMS TECHNICIAN Work Phone: [facility] 2003 hepatitis B vaccine, pediatric or pediatric/adolescent dosage Melia Mantilla CONTROL SYSTEMS TECHNICIAN Work Phone: [facility] 2003 poliovirus vaccine, inactivated Melia Mantilla CONTROL SYSTEMS TECHNICIAN Work Phone: [facility] Payers Date Payer Category Payer Self-pay [id number] 2024 Medicaid (Managed Care) [facility] MEDICAID [id number] 2023 Medicaid [id number] 2003 Unknown [id number] 2.16.840.1.156906.3.579.2. 593 2003 Unknown [id number] 2.16.840.1.111895.3.579.2. 593 2003 Unknown [id number] 2.16.840.1.564031.3.579.2. 593 2003 Unknown [id number] 2.16.840.1.122621.3.579.2. 593 2003 Unknown [id number] 2.16.840.1.191596.3.579.2. 593 2003 Unknown [id number] 2.16.840.1.639856.3.579.2. 593 2003 Unknown [id number] 2.16.840.1.224509.3.579.2. 593 2003 Unknown [id number] 2.16.840.1.652762.3.579.2. 1259 2003 Unknown [id number] 2.16.840.1.726199.3.579.2. 1259 2003 Unknown [id number] 2.16.840.1.361609.3.579.2. 1259 2003 Unknown [id number] 2.16.840.1.397533.3.579.2. 1259 2003 Unknown [id number] 2.16.840.1.476623.3.579.2. 1259 2003 Unknown [id number] 2.16.840.1.422294.3.579.2. 1259 1959 Medicaid [id number] Unknown [id number] 2.16.840.1.594194.3.579.2. 531 Unknown [id number] 2.16.840.1.015876.3.579.2. 531 Unknown [id number] 2.16.840.1.361696.3.579.2. 531 Unknown [id number] 2.16.840.1.137761.3.579.2. 531 Unknown [id number] 2.16.840.1.618364.3.579.2. 531 Social History Date Type Detail Facility Start: 02-07-2022 End: 10-04-2023 Tobacco smoking status NHIS Never smoked tobacco (finding) [facility] Start: 2003 Sex Assigned At Female [facility] Start: 10-04-2023 Tobacco use and exposure [...] to any clubs or organizations such as confucianism groups, unions, fraternal or athletic groups, or [...] [OSQ] Rather much [facility] (I/We) worried will er (my/our) food would run out before (I/we) got money to buy more. Never true [facility] Start: 10-16-2024 End: 12-13-2024 Sex Female (finding) [facility] Start: 10-17-2024 End: 10-17-2024 Tobacco smoking status NHIS Smoker (finding) [facility] NEGATED: Highlighted row [facility] Clinical Notes 11-12-2022 to 11-22-2024 Telephone Encounter - Melia Mantilla NP - 11/22/2024 2:58 PM ESTTelephone Encounter - Melia Mantilla NP - 11/22/2024 2:58 PM IVORY Tiwari - 11/21/2024 1:00 PM EST Note Date & Type Note Facility 11-22-2024 Telephone encounter Note Form atting of this note might be different from the original. Sent [facility] 11-22-2024 Miscellaneous Notes Formattin g of this note might be different from the original. Sent documented in this encounter [facility] 11-21-2024 History of Presen t illness Narrative Reason for Appointment: Patient ID: So Dorman is a 19 y.o. female who presents for Well Women Visit Patient presents today for Annual Exam. MEDICATIONS Current Outpatient Medications Medication Instructions gabapentin [...] SYSTEMS Review of Systems: Review of Systems All other systems reviewed and are negative. OBJECTIVE Objective: Physical Exam Constitutional: Appearance: Normal appearance. She is well-developed. Genitourinary: Vulva normal. Vaginal bleeding present. Right Adnexa: not tender and no mass present. Left Adnexa: not tender and no mass present. No cervical discharge. Breasts: Breasts are soft. Right: Normal. Left: Normal. HENT: Head: Normocephalic. Nose: Nose normal. Mouth/Throat: Mouth: Mucous membranes are moist. Cardiovascular: Rate and Rhythm: Normal rate and regular rhythm. Pulmonary: Effort: Pulmonary effort is normal. Breath sounds: Normal breath sounds. Abdominal: General: Bowel sounds are normal. There is no distension. Palpations: Abdomen is soft. Tenderness: There is no abdominal tenderness. There is no guarding or rebound. Musculoskeletal: General: No swelling. Normal range of motion. Cervical back: Normal range of motion. Right lower leg: No edema. Left lower leg: No edema. Neurological: General: No focal deficit present. Mental Status: She is alert and oriented to person, place, and time. Skin: General: Skin is warm and dry. Psychiatric: Mood and Affect: Mood normal. Behavior: Behavior normal. Vitals and nursing note reviewed. Exam conducted with a toll test worker present. Vitals: Estimated body mass index is 26.33 kg/m as calculated from the following: Height as of 09/03/24: 5' 4 . Weight as of this encounter: 153 lb 6.4 oz. BP: 128/80 No LMP recorded. ASSESSMENT & PLAN ICD-10-CM 1. Well woman exam with routine gynecological exam Z01.419 Pap Smear Annual Exam: Patient presents today for an annual exam. Patient states she is doing well and has no complaints. Pap was obtained without difficulty. Reviewed Ultrasound results with patient and discussed taking a control to help with nausea and cramping. Patient advised we could do diagnostic testing with DrShayy And will have surgery coordinator discuss with patient. We will repeat ultrasound in 6 weeks. Will have patient schedule appointment with DR Floers to discuss plan. We also discussed starting metformin in the future Follow Up: Patient is to return in one year for annual unless needed otherwise. Documented by Bebe Nowak LPN on behalf of: IVORY Wills documented in this encounter [facility] 11-12-2024 Telephone encounter Note Form atting of this note might be different from the original. New order sent [facility] 11-12-2024 Miscellaneous Notes Formattin g of this note might be different from the original. New order sent Insurance denied MRI due to them wanting PT done first, patient completed PT as of 10/16/[address] go office is wanting us to appeal the MRI we ordered- MRI for Lumbar documented in this encounter [facility] 11-09-2024 Telephone encounter Note Form atting of this note might be different from the original. Insurance denied MRI due to them wanting PT done first, patient completed PT as of 10/16/24 & Dr go office is wanting us to appeal the MRI we ordered- MRI for Lumbar [facility] 10-29-2024 Evaluation note Diagnosis Onset Date Resolution Chronic pain acute October 8:56am Other low back pain acute Febru boaz2024 8:56am Other spondylosis with radiculopathy, lumbosacral region acute October 8:56am [facility] Work Phone: [phone]) 140-615302-03-2025 History of Present illness Narrative* IVORY Wills - 10/22/2024 10:00 AM EST Reason for Appointment: Patient ID: So Dorman [...] similar pain. We will order a repeat USand follow up with DR Flores as patient also wants to discuss fertility. Documented by IVORY Wills on behalf of: IVORY Wills documented in this [facility]01-27-2025 Telephone encounter Note* Telephone Encounter - Melia Mantilla NP - 10/15/2024 1:29 PM EST MRI was denied. Patient states she is still having terrible pain in her back that seems to be worsening. Discussed pain management referral [facility] [id number] Miscellaneous Notes* Telephone Encounter - Melia Mantilla NP - 10/15/2024 1:29 PM EST MRI was denied. Patient states she is still having terrible pain in her back that seems to be worsening. Discussed pain management referral documented in this [facility]01-06-2025 Telephone encounter Note* Telephone Encounter - Melia Mantilla NP - 09/24/2024 5:41 PM EST [id number] Miscellaneous Notes* Telephone Encounter - Melia Mantilla NP - 09/24/2024 5:41 PM EST Sent documented in this [facility]12-16-2024 History of Present illness Narrative* Melia Mantilla NP - 09/03/2024 10:20 AM EST SUBJECTIVE So Dorman is a 18 y.o. [...] her symptoms. It is my professional opinion thatpatient should stop physical therapy at this time until further evaluation with MRI is completed. Patient states that the increased dosing of gabapentin has decreased her pain from 06/28 to 03/28. Shecurrently complaints of lumbar midline pain with associated numbness, tingling, and weakness in theright leg. CURRENT MEDICATIONS Current Outpatient Medications: gabapentin [...] Decreased ROM related to pain. Positive straight legtest right leg. Skin: General: Skin is warm [...] scheduled follow-up review MRI. documented in this [facility]12-16-2024 Instructions* Patient Instructions* Melia Mantilla NP - 09/03/2024 10:20 AM EST PATIENT EDUCATION: Low back pain Encouraged to follow up with meds, heat/ice, and exercises as provided. Encouraged to avoid strenuous activities that may worsen symptoms but continue with being physically active. Avoid laying/sitting for long periods of time as this will worsen muscle aches/spasms and back pain. Encouraged to usestretching. Core strengthening and proper lifting mechanics ar important. Complete imaging if ordered. Notify office or go to ER if saddle paresthesia presents or if patient develop difficulties voiding, passing stool, or new onset incontinence. [place]AR[place] reviewed as necessary for use of controlled substances. documented in this [facility]12-10-2024 Telephone encounter Note* Telephone Encounter - Melia Mantilla NP - 08/28/2024 12:57 PM EST [id number] Miscellaneous Notes* Telephone Encounter - Melia Mantilla NP - 08/28/2024 12:57 PM EST sent documented in [facility] [id number] History of Present illness Narrative* Melia Mantilla NP - 07/27/2024 10:20 AM EST SUBJECTIVE So Dorman is a 18 y.o. female who presents for a follow up regarding back pain. Patient recently completed labs and Xrs which were discussed during today's visit. At her last visit, she was givensteroids and was instructed to stretch. Patient states [...] follow-up: back pain . documented in this [facility]11-08-2024 Instructions* Patient Instructions* Melia Mantilla NP - 07/27/2024 10:20 AM EST PATIENT EDUCATION: Low back pain Encouraged to follow up with meds, heat/ice, and exercises as provided. Encouraged to avoid strenuous activities that may worsen symptoms but continue with being physically active. Avoid laying/sitting for long periods of time as this will worsen muscle aches/spasms and back pain. Encouraged to usestretching. Core strengthening and proper lifting mechanics ar important. Complete imaging if ordered. Notify office or go to ER if saddle paresthesia presents or if patient develop difficulties voiding, passing stool, or new onset incontinence. OARRS reviewed as necessary for use of controlled substances. documented in this [facility]09-30-2024 History of Present illness Narrative* Melia Mantilla NP - 06/18/2024 2:20 PM EDT SUBJECTIVE So Dorman is a 18 y.o. 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 Denies anyknow injury or falls. CURRENT MEDICATIONS Current Outpatient [...] for Next scheduled follow-up. [facility] [id number] Instructions* Patient Instructions* Melia Mantilla NP - 06/18/2024 2:20 PM EDT PATIENT EDUCATION: Adult wellness Wellness performed at office visit today. Height, weight, BMI, problem list, and immunizations records reviewed. Encourage annual vision screenings and semi- annual dental care. Encourage to eat a diet [...] muscle aches/spasms and back pain. Encouraged to usestretching. Core strengthening and proper lifting mechanics ar important. Complete imaging if ordered. Notify office or go to ER if saddle paresthesia presents or if patient develop difficulties voiding, passing stool, or new onset incontinence. OARRS reviewed as necessary for use of controlled substances. documented in this encounterSaint [facility] [id number] NotePROCEDURE: XR HIPS DANNIELLE 5V W PELVIS HISTORY: Pain in thoracic spine ; bilateral hip pain, right greater than left COMPARISON: None. FINDINGS: BONES:No fracture, acute abnormality, or significant arthropathy. SOFT TISSUES:No visible soft tissue swelling. EFFUSION:None visible. OTHER: Negative. IMPRESSION: 1. Normal examination. Electronically authenticated by: JOY CARDOZA Date: 2023-01-10 11:58[facility]02-24-2023 NoteOP Note OPERATION DATE: 11/12/2022 PROCEDURE: Diagnostic laparoscopy with left ovarian cystotomy with drainage of chocolate cyst with left ovarian cystectomy, lysis of adhesions and fulguration of endometriosis on the patient's right ovary. PREOPERATIVE DIAGNOSIS: Pelvic pain, suspect endometriosis; left ovarian cyst. POSTOPERATIVE DIAGNOSIS: Pelvic pain, suspect endometriosis; left ovarian cyst. ANESTHESIA: General. SURGEON: Curtis Flores D.O. PATCH WASHER: KATYH Max URINE OUTPUT: Yellow and clear. BLOOD [...] inserted the regular diagnostic laparoscopy procedure only.) ?[id number] NoteOP Note OPERATION DATE: 11/12/2022 PROCEDURE: Diagnostic laparoscopy with left ovarian cystotomy with drainage of chocolate cyst with left ovarian cystectomy, lysis of adhesions and fulguration of endometriosis on the patient's right ovary. PREOPERATIVE DIAGNOSIS: Pelvic pain, suspect endometriosis; left ovarian cyst. POSTOPERATIVE DIAGNOSIS: Pelvic pain, suspect endometriosis; left ovarian cyst. ANESTHESIA: General. SURGEON: Curtis Flores D.O. PATCH WASHER: KATHY Max URINE OUTPUT: Yellow and clear. [...] I inserted the regular diagnostic laparoscopy procedure only.)[facility]Evaluation noteNo assessment information availableMercy [facility] Hospital Work Phone: Evaluation note* Diagnosis Chronic midline low back pain with bilateral sciatica- Primary Person consulting for explanation of examination or test finding Bilateral sacroiliitis (CMS/HCC) documented in this encounter [facility] HealthcareEvaluation note* Diagnosis Bilateral sacroiliitis (CMS/HCC) Chronic midline low back pain with bilateral sciatica documented in this encounter [facility] HealthcareEvaluation note* Diagnosis Chronic midline low back pain without sciatica- Primary Lumbar radiculopathy Thoracic or lumbosacral neuritis or radiculitis, unspecified documented in this encounter [facility] Healthcare[facility] note* Diagnosis Adult general medical examination- Primary Unspecified general medical examination Muscle cramping Bilateral sacroiliitis (CMS/HCC) Left lumbar radiculopathy Thoracic or lumbosacral neuritis or radiculitis, unspecified 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-sided sciatica documented in this encounter [facility]* Diagnosis Bilateral sacroiliitis (CMS/HCC) Chronic midline low back pain with bilateral sciatica documented in this encounter [facility] HealthcareEvaluation note* Diagnosis Chronic midline low back pain without sciatica- Primary Left lumbar radiculopathy Thoracic or lumbosacral neuritis or radiculitis, unspecified 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-sided sciatica Bilateral sacroiliitis (CMS/HCC) documented in this encounter [facility]* Diagnosis Abdominal cramping Abdominal pain, unspecified site Cyst of left ovary Other and unspecified ovarian cyst documented in this encounter [facility] HealthcareEvaluation note* Diagnosis 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-sided sciatica- Primary Left lumbar radiculopathy Thoracic or lumbosacral neuritis or radiculitis, unspecified documented in this encounter [facility] Healthcare[facility] note* Diagnosis Well woman exam with routine gynecological exam Routine gynecological examination Complex ovarian cyst Nausea Nausea alone Encounter for initial prescription of contraceptive pills documented in this encounter [facility] Healthcare[facility] note* Diagnosis Bilateral sacroiliitis (CMS/HCC) Chronic midline low back pain with bilateral sciatica documented in this encounter [facility] Healthcare[facility] Discharge instructions Additional Instructions I am glad that you are feeling better. Your symptoms are likely residual after your vomiting and diarrhea. I will prescribe medicine for nausea and for cramping. If you have any problems or concerns, we are always happy to see you here. I do want you to follow-up with your doctor.[facility] Work Phone: Chief Complaint and Reason [...] stomach pain October 17, 2024 7 :45pm Chief Complaint Admit Date stomach pain October 17, 2024 7 :45pm REFF BY MELIA MANTILLA October 29, 2024 8:56am N83.299 November 20, 2024 2:49 pm Reason for Visit Admit Date Chronic pain October 29, 2024 8:56am Other low back pain October 29, 2024 8:56am Other spondylosis with radiculopathy, tylor mbosacral region October 29, 2024 8:56am Chief Complaint Admit Date stomach pain October 17, 2024 7 :45pm REFF BY MELIA MANTILLA October 29, 2024 8:56am N83.299 November 20, 2024 2:49 pm M54.42 G89.29 M54.16 December 12, 2024 7: 49am Advance Directives No Advanced Directives Records Found Advance Directive Response Recorded Date/ Time Advance Directives No October 3:55pm Advance Directive Response Recorded Date/ Time Advance Directives No October 2:55pm Summary Purpose Family History No Family History Records FoundNo Family History Records FoundNo Family History Records Found Additional Source Comments Care Teams (unrecognized sec tion and content) Team Status: Active Member Role Status Dates Joe Rosenberg MD Primary Care Provider Active Team Status: Inactive Member Role Status Dates Joe Rosenberg MD Primary Care Provider Active Start: November 04, 2023 End: November 04, 2023 Curtis Flroes Attending Provider Active Start: Jolie law 2023 End: November 04, 2023 Team Status: Inactive Member Role Status Dates Joe Rosenberg MD Primary Care Provider Active Donta Stewart MD Attending Provider Active Team Status: Inactive Member Role Status Dates Joe Rosenberg MD Primary Care Provider Active Severo Lea MD Emergency Provider Active Edge Polisher Relationship Specialty Start Date End Date Joe Rosenberg MD [facility] [place] [address] PCP - General Family Medicine 10/19/23 Team Status: Active Member Role Status Dates VON Wyatt Primary Care Provider Active Team Status: Inactive Member Role Status Dates Melia Warchol , CONTROL SYSTEMS TECHNICIAN-C Primary Care Provide r, Attending Provider Active Start: July 25, 2024 End: July 25, 2024 Edge Polisher Relationship Specialty Start Date End Date Jigar Grace MD [address] [place] [address] PCP - General Family Medicine 02/23/24 Melia Mantilla NP [address] [place] [id number] Nurse Practitioner Family Medicine 02/23/24 Awilda Tejada NP [address] [place] [address] Nurse Practitioner Family Medicine 02/23/24 Edge Polisher Relationship Specialty Start Date End Date Jigar Grace MD [address] [place] [id number] PCP - General Family Medicine 02/23/24 Melia Mantilla NP [address] [place] [id number] Nurse Practitioner Family Medicine 02/23/24 Awilda Tejada NP [address] [place] [address] Nurse Practitioner Family Medicine 02/23/24 Edge Polisher Relationship Specialty Start Date End Date Jigar Grace MD [address] [place] [address] PCP - General Family Medicine 02/23/24 Melia Mantilla CONTROL SYSTEMS TECHNICIAN [address] [place] [address] Nurse Practitioner Family Medicine 02/23/24 Awilda Tejada NP [address] [place] [address] Nurse Practitioner Family Medicine 02/23/24 Edge Polisher Relationship Specialty Start Date End Date Jigar Grace MD [address] [place] [address] PCP - General Family Medicine 02/23/24 Melia Mantilla, CONTROL SYSTEMS TECHNICIAN [address] [place] [address] Nurse Practitioner Family Medicine 02/23/24 Awilda Tejada NP [address] [place] [address] Nurse Practitioner Family Medicine 02/23/24 Edge Polisher Relationship Specialty Start Date End Date Jigar Grace MD [address] [place] [address] PCP - General Family Medicine 02/23/24 Melia Mantilla, CONTROL SYSTEMS TECHNICIAN [address] [place] [address] Nurse Practitioner Family Medicine 02/23/24 Awilda Tejada NP [address] [place] [address] Nurse Practitioner Family Medicine 02/23/24 Edge Polisher Relationship Specialty Start Date End Date Jigar Grace MD [address] [place] [address] PCP - General Family Medicine 02/23/24 Melia Mantilla NP [address] [place] [address] Nurse Practitioner Family Medicine 02/23/24 Awilda Tejada NP [address] [place] [address] Nurse Practitioner Family Medicine 02/23/24 Edge Polisher Relationship Specialty Start Date End Date Jigar Grace MD [address] [place] [address] PCP - General Family Medicine 02/23/24 Melia Mantilla NP [address] [place] [id number] Nurse Practitioner Family Medicine 02/23/24 Awilda Tejada NP [address] [place] [address] Nurse Practitioner Family Medicine 02/23/24 Edge Polisher Relationship Specialty Start Date End Date Jigar Grace MD [address] [place] [id number] PCP - General Family Medicine 02/23/24 Melia Mantilla NP [address] [place] [address] Nurse Practitioner Family Medicine 02/23/24 Awilda Tejada NP [address] [place] [address] Nurse Practitioner Family Medicine 02/23/24 Team Status: [...] October 17, 2024 End: October 18, 2024 Edge Polisher Relationship Specialty Start Date End Date Jigar Grace MD [address] [place] [address] PCP - General Family Medicine 02/23/24 Melia Mantilla NP [address] [place] [address] Nurse Practitioner Family Medicine 02/23/24 Awilda Tejada NP [address] [place] [address] Nurse Practitioner Family Medicine 02/23/24 Edge Polisher Relationship Specialty Start Date End Date Jigar Grace MD [address] [place] [address] PCP - General Family Medicine 02/23/24 Melia Mantilla NP [address] [place] [address] PCP - [facility] 09/19/24 Melia Mantilla NP [address] [place] [address] Nurse Practitioner Family Medicine 02/23/24 Awilda Tejada NP [address] [place] [address] Nurse Practitioner Family Medicine 02/23/24 Edge Polisher Relationship Specialty Start Date End Date Jigar Grace MD [address] [place] [address] PCP - General Family Medicine 02/23/24 Melia Mantilla NP [address] [place] [address] PCP - [facility] 09/19/24 Melia Mantilla NP [address] [place] [address] Nurse Practitioner Family Medicine 02/23/24 Awilda Tejada NP [address] [place] [phone] Nurse Practitioner Family Medicine 02/23/24 Edge Polisher Relationship Specialty Start Date End Date Jigar Grace MD [address] [place] [address] PCP - General Family [facility] 02/23/24 Melia Mantilla NP [address] [place] [address] PCP - [facility] 09/19/24 Melia Mantilla NP [address] [place] [address] Nurse Practitioner Family Medicine 02/23/24 Awilda Tejada NP [address] [place] [address] Nurse Practitioner Family Medicine 02/23/24 Edge Polisher Relationship Specialty Start Date End Date Jigar Grace MD [address] [place] [address] PCP - General Family Medicine 02/23/24 Melia Mantilla NP [address] [place] [address] PCP - [facility] 09/19/24 Melia Mantilla NP [address] [place] [address] Nurse Practitioner Family Medicine 02/23/24 Awilda Tejada NP [address] [place] [address] Nurse Practitioner Family Medicine 02/23/24 Team Status: Inactive Member Role Status Dates VON Wyatt Primary Care Provide r, Referring Provider Active Start: October 29, 2024 End: October 29, 2024 López Tomlin MD Attending Provider Active Sta rt: October 29, 2024 End: October 29, 2024 Team Status: Inactive Member Role Status Dates VON Wyatt Primary Care Provider Active Start: November 20, 2024 End: November 20, 2024 Melia Potter PA-C Attending Provider Active Sta rt: November 20, 2024 End: November 20, 2024 Team Status: Inactive Member Role Status Dates VON Wyatt Primary Care Provide r, Attending Provider Active Start: December 12, 2024 End: December 12, 2024 Goals (unrecognized section and content) Goals may [...] section and content) DATE CREATED AUTHOR 01/11/2023 [facility] DATE CREATED AUTHOR AUTHOR'S ORGANIZ ATION 11/23/2024 [facility] EPIC DATE CREATED AUTHOR AUTHOR'S ORGANIZ ATION 12/13/2024 [facility] Reason for Visit (unrecogniz ed section and content) Reason Comments Ovarian Cyst Reason Comments Well Women Visit FOR RECORDS PERTAINING TO PATIENTS WHO ARE [...] BE BASED ON THE PRIMARY CLINICAL RECORDS. [employer] [facility]. provides no warranty or guarantee of the accuracy or completeness of information in this document.
== END 2024-12-18 07:50 | disposition home or self-care (01) ==
LOC: US 07:50
PROVIDERS: PCP Family Medicine; Visit Provider Physician Assistant
DX: N83.292 Other ovarian cyst, left side (principal)
CPT/HCPCS: 76830; 76856

== ENCOUNTER 2024-12-20 10:47 | Outpatient (OUT) | payer OTHER, SELFPAY ==
[2024-12-20 11:20] LABS: Lactate Dehydrogenase 130 U/L (81-234)
[2024-12-21 04:09] LABS: CEA 1.2 ng/mL (0.0-4.7); Cancer Antigen (CA) 125 18.4 U/mL (0.0-38.1); HCG Tumor Marker <1 mIU/mL (.)
== END 2024-12-20 10:48 | disposition home or self-care (01) ==
LOC: LAB 10:49
PROVIDERS: PCP Family Medicine; Visit Provider Obstetrics & Gynecology
DX: N83.299 Other ovarian cyst, unspecified side (principal)
CPT/HCPCS: 36415; 82105; 82378; 83615; 84702; 86304

== ENCOUNTER 2024-12-27 08:37 | Outpatient (OUT) | payer OTHER, SELFPAY ==
--- OUTSIDE RECORDS SUMMARY | 2024-12-27 09:00 | XMS_ITS | CCD ---
Author Organization [facility] Care Team Providers Care Production Engine Repairer Name Role Phone MD Joe Rosenberg Primary Care Provider [phone] MD Donta Stewart Attending Provider MD Severo Lea Emergency Provider SANDRA ., DR SWANN Admitting Unavailable SANDRA ., DR SWANN Attending Unavailable HOY ., DR DIAZ Primary Care Unavailable SANDRA ., DR SWANN Admitting Unavailable SANDRA ., DR SWANN Attending Unavailable HOY ., DR DIAZ Primary Care Unavailable SANDRA ., DR SWANN Consulting Unavailable NUSRAT, ANEL Consulting Unavailable KINDRAMARKIE KLEIN Consulting Unavailable FILUTZE, AWILDA Consulting Unavailable KARASIK [...] DR ERASMO LISTED Primary Care Unavaila ble SANDRA ., [...] Care Provider Curtis Flores Attending Provider Warchol, CANAL EQUIPMENT MECHANIC-C Melia Primary Care Provider [place], CANAL EQUIPMENT MECHANIC-C Melia Attending Provider Sanjay GUEVARA, Jigar Triana Primary Care Provider [place] CANAL EQUIPMENT MECHANIC, Melia Unavailable Lause CANAL EQUIPMENT MECHANIC, Awilda R Unavailable [place]archol CANAL EQUIPMENT MECHANIC-C, Melia Primary Care Provider [place]archol CANAL EQUIPMENT MECHANIC-C, Melia Attending Provider [phone] López Coburn MD Emergency Provider Warchol CANAL EQUIPMENT MECHANIC, Melia Unavailable [place]archol CANAL EQUIPMENT MECHANIC-C, Melia Primary Care Provider [phone] López Coburn MD Emergency Provider [place] PA-C, Melia L Attending Provider [place]archol CANAL EQUIPMENT MECHANIC-C, Meila Attending Provider [place]arch[place], Melia Primary Care Unavailable Warchol, Melia Admitting Unavailable Warchol, Melia Attending Unavailable Warchol, Melia Attending Unavailable Warchol, Melia Primary Care Unavailable Warchol, Melia Admitting Unavailable Warchol, Melia Primary Care Unavailable LouisvilleMelia L Attending Unavailable StacyMelia L Admitting Unavailable Warchol, Melia Attending Unavailable Warchol, Melia Primary Care Unavailable Warchol, Melia Admitting Unavailable Warchol, Melia Primary Care Unavailable López Coburn Jr Attending Unavailable López Coburn Jr Admitting Unavailable WARCHOL, MELIA Attending Unavailable WARCHOL, MELIA Attending Unavailable WARCHOL, MELIA Attending Unavailable STACY, MELIA Attending Unavailable STACY, MELIA Referring Unavailable STACY, MELIA Attending Unavailable CURTIS FLORES Attending Unavailable Medications Current Medications Medication Drug Class(es) Dates Sig (Normalized) Sig (Original) amoxicillin 500 mg oral capsule (3 sources) Penicillin-class Antibacterial Start: 12-18-2024 take 1 capsule by mouth every eight hours amoxicillin (Amoxil) 500 MG capsule TAKE 1 CAPSULE BY MOUTH EVERY 8 HOURS UNTIL GONE 12/18/2024 Active diclofenac sodium 75 mg delayed release oral tablet (6 sources) Nonsteroidal Anti-inflammatory Drug Start: 10-29-2024 take 1 tablet by mouth twice daily Diclofenac Sodium 75 mg tablet,delayed release (DR/EC) Active 75 MG PO Twice daily 60 October 29, 2024 1:00am Start: 12-16-2022 End: 06-18-2024 take 1 tablet by mouth in the morning diclofenac (Voltaren) 75 MG EC tablet Take 75 mg by mouth in the morning and 75 mg before bedtime. 12/16/2022 06/18/2024 Discontinued (Therapy completed) ethinyl estradiol 0.035 mg / norgestimate 0.25 mg oral tablet (8 sources) Progestin, Estrogen Start: 11-21-2024 End: 10-23-2025 [...] (Neurontin) 600 MG tablet Indications: Bilateral sacroiliitis , Chronic midline low back pain with [...] bedtime. 90 capsule 07/27/2024 08/28/2024 Discontinued (Reorder) predniSONE 20 mg oral tablet (5 sources) [...] sources) Opioid Agonist Start: 11-04-2023 End: 06-18-2024 HYDROcodone-acetami nophen ([place]) 5-325 MG tablet 11/04/2023 06/18/2024 Discontinued (Therapy [...] WITH FOOD 11/12/2022 06/18/2024 Discontinued (Therapy completed) ondansetron 4 mg disintegrating oral tablet (11 sources) Serotonin-3 Receptor Antagonist Start: 11-21-2024 End: 12-21-2024 take 1 tablet by mouth every six hours as needed for nausea and vomiting and nausea and nausea ondansetron ODT (Zofran-ODT) 4 MG disintegrating tablet Indications: Nausea Take 1 tablet (4 mg) by mouth every 6 (six) hours if needed for nausea or vomiting 30 tablet 2 11/21/2024 12/21/2024 Start: 10-17-2024 End: 10-29-2024 take 1 tablet by mouth every eight hours as needed for nausea and vomiting Ondansetron 4 mg tablet,disintegrating Discontinued 4 MG PO Q8H as needed for nausea and vomiting October 17, 2024 1:00am October 29, 2024 10:00am pantoprazole 20 mg delayed release oral tablet [...] p per request of Phys. EHR Cmte Administrative/social admission (20 sources) Patient encounter status; Translations: [Other specified counseling] Onset: 10-03-2023 10-03-2023 Episodic Endometriosis (1 source) Endometriosis; Translations: [ENDOMETRIOSIS [...] pain] Onset: 07-25-2024 10-29-2024 Chronic Ovarian cyst (9 sources) Cyst of left ovary; Translations: [Unspecified ovarian cyst, left side] Onset: 11-20-2024 10-22-2024 Episodic Spondylosis; intervertebral disc disorders; other back problems (16 sources) Bilateral inflammation of sacroiliac joint; Translations: [Sacroiliitis, not elsewhere classified] Onset: 08-23-2024 07-27-2024 Chronic Unclassified (2 sources) Finding of sensation of abdomen 10-22-2024 Past or Other Problems Problem Classification Problem Date Documented Da te Episodic/Chronic Other connective tissue disease (1 source) Cramp [...] Test Name Value Interpretation Reference Range Facility ALL LDHon 12-20-2024 LDH [Catalytic activity/Vol] 130 U/L 81 - 234 U/L [facility] PELVIS W/ TRANSVAGINALon 12-18-2024 [place] [id number] Ultrasound Report Signed Patient: BERENICE LOPEZ MR#: [id number] : 2005 Acct:[id number] Age/Sex: 19 / F ADM Date: 12/18/24 Loc: US Attending Dr: Melia Potter Ordering Physician: Melia Potter Date of Service: 12/18/24 Procedure(s): US pelvis w/ transvaginal Accession Number(s): [id number] cc: Melia Potter; Joe Rosenberg M.D. [place] [id number] Patient Name: BERENICE LOPEZ MRN: [id number] date: 2005 Sex: F Assigned Patient Location: US Current Patient Location: US Accession/Order Number: [id number] Exam Date: 12/18/2024 09:05 Report Date: 12/18/2024 09:16 At the request of: MELIA POTTER Procedure: US pelvis w/ transvaginal ULTRASOUND PELVIS WITH TRANSVAGINAL CLINICAL DATA: Left pelvic pain. History of complex ovarian cyst. COMPARISON: 10/15/2022 Real-time ultrasound evaluation pelvis was performed utilizing both a transabdominal and transvaginal approach. TRANSABDOMINAL: The urinary bladder is empty. The uterus is anteverted. Estimated uterine size is approximately 7.2 x 3.8 x 4.9 cm. No focal myometrial abnormalities are identified. The endometrial lining is not thickened. The right ovary is not identified. The left ovary is seen and there is a cyst. TRANSVAGINAL: Transvaginal imaging was performed to better evaluate the uterus and adnexa. By this approach, the myometrium is unremarkable. The endometrial lining measures 6 - 7 mm. In the transverse plane, there could be a arcuate configuration. Both ovaries are seen. The right ovary measures 5.5 x 1.9 x 2.9 cm. There are small follicles. The left ovary measures 6.1 x 3.2 x 3.8 cm. There are small follicles and a cyst which measures 2.7 x 1.8 x 2.9 cm. A hypoechoic nodular area is also seen within the left ovary measuring 3.2 x 3.2 x 3.3 cm. There is no associated blood flow. It could be a complex/hemorrhagic cyst. The hypoechoic left ovarian lesion at the time of the prior had an associated echogenic (question calcification) focus that is not seen today. There is documentation of ovarian blood flow. No free fluid is identified. US/US pelvis w/ transvaginal IMPRESSION: LEFT OVARIAN CYST AND HYPOECHOIC LESION, POSSIBLY A COMPLEX CYST. Impression dictated by: Mary Gordillo M.D.12/18/2024 9:16 AM Dictation Location: [place] [address] Electronically authenticated by: [id number] Y Date: 12/18/2024 09:16 Dictated By: Mary Gordillo M.D. Signed By: 12/18/24 0919 DD/ 0916 TD/TT: Head Of Sales Promotion: [facility] Radiology, Radiologi MD nette - 12/18/2024 [place] [address] Ultrasound Report Signed Patient: BERENICE LOPEZ MR#: [id number] : 2005 Acct:[id number] Age/Sex: 19 / F ADM Date: 12/18/24 Loc: US Attending Dr: Melia Potter Ordering Physician: Melia Potter Date of Service: 12/18/24 Procedure(s): US pelvis w/ transvaginal Accession Number(s): [id number] cc: Melia Potter; Joe Rosenberg M.D. The [place] [id number] Patient Name: BERENICE LOPEZ MRN: [id number] date: 2005 Sex: F Assigned Patient Location: US Current Patient Location: US Accession/Order Number: [id number] Exam Date: 12/18/2024 09:05 Report Date: 12/18/2024 09:16 At the request of: MELIA POTTER Procedure: US pelvis w/ transvaginal ULTRASOUND PELVIS WITH TRANSVAGINAL CLINICAL DATA: Left pelvic pain. History of complex ovarian cyst. COMPARISON: 10/15/2022 Real-time ultrasound evaluation pelvis was performed utilizing both a transabdominal and transvaginal approach. TRANSABDOMINAL: The urinary bladder is empty. The uterus is anteverted. Estimated uterine size is approximately 7.2 x 3.8 x 4.9 cm. No focal myometrial abnormalities are identified. The endometrial lining is not thickened. The right ovary is not identified. The left ovary is seen and there is a cyst. TRANSVAGINAL: Transvaginal imaging was performed to better evaluate the uterus and adnexa. By this approach, the myometrium is unremarkable. The endometrial lining measures 6 - 7 mm. In the transverse plane, there could be a arcuate configuration. Both ovaries are seen. The right ovary measures 5.5 x 1.9 x 2.9 cm. There are small follicles. The left ovary measures 6.1 x 3.2 x 3.8 cm. There are small follicles and a cyst which measures 2.7 x 1.8 x 2.9 cm. A hypoechoic nodular area is also seen within the left ovary measuring 3.2 x 3.2 x 3.3 cm. There is no associated blood flow. It could be a complex/hemorrhagic cyst. The hypoechoic left ovarian lesion at the time of the prior had an associated echogenic (question calcification) focus that is not seen today. There is documentation of ovarian blood flow. No free fluid is identified. US/US pelvis w/ transvaginal IMPRESSION: LEFT OVARIAN CYST AND HYPOECHOIC LESION, POSSIBLY A COMPLEX CYST. Impression dictated by: Mary Gordillo M.D.12/18/2024 9:16 AM Dictation Location: [place] [address] Electronically authenticated by: [id number] Y Date: 12/18/2024 09:16 Dictated By: Mary Gordillo M.D. Signed By: 12/18/24918 DD/ 5 TD/TT: Head Of Sales Promotion: [facility] Radiology Study observation (narrative) [facility] US PELVIS W/ TRANSVAGINALOrd ered By: Radiologist Radiology on 12-18-2024 [facility] Work Phone: MR lumbar spine wo conon MR lumbar spine wo con [facility] [place] [address] MRI Report Signed Patient: Berenice Lopez MR#: [id number] : 2005 Acct:[id number] Age/Sex: 19 / F ADM Date: 12/12/24 [facility]: Type: [facility] Attending Dr: Melia Mantilla CANAL EQUIPMENT MECHANIC-C Copies to: Melia Mantilla CNP Ordering Provider: [...] foraminal narrowing. L4-5: Circumferential disc bulge with eydb-am-rmxeemwr facet arthropathy. Yldy-fg-zkgfrhxs left- sided mild right-sided neural foraminal narrowing. [...] Olman Rondon M.D.12/12/2024 11:49 AM Dictation Location: [place] [address] Transcribed By: [facility] 12/12/24 1149 Dictated By: Olman Rondon MD 12/12/24 1135 Signed By: 12/12/24 1149 Normal [facility] Magnetic resonance imaging r eportOrdered By: Olman Rondon on 12-12-2024 Study report [facility] Main [place] [address] [place] [address] MRI Report Signed Patient: Berenice Lopez MR#: [id number] : 2005 Acct:[id number] Age/Sex: 19 / F ADM Date: 5 Loc: [facility] Room: Type: [facility] Attending Dr: Melia Mantilla CANAL EQUIPMENT MECHANIC-C Copies to: Melia Mantilla CNP~ Ordering Provider: [...] foraminal narrowing. L4-5: Circumferential disc bulge with yrfb-bh-bfubgyga facet arthropathy. Xflh-vy-vqsibhel left-sided mild right-sided neural foraminal narrowing. Mild [...] Olman Rondon M.D.12/12/2024 11:49 AM Dictation Location: [place] [address] Transcribed By: [facility] 12/12/24 1149 Dictated By: Olman Rondon MD 12/12/24 1135 Signed By: 12/12/24 1149 [facility] Work Phone: AFP Tumor Marker, Serumon AFP Tumor Marker, Serum 5.7 ng/mL High 0.0-4.7 [facility] Comment on above: Result Comment: [employer] Electrochemiluminescence Immunoassay (ECLIA) Values obtained with different assay methods or kits cannot be used interchangeably. Results cannot be interpreted as absolute evidence of the presence or absence of malignant disease. This test is not interpretable in females. Performed By: #### C JUAN PABLO, HCGQNT #### [address] #### AFPTM, CA125, LDI #### [facility] , CEA ser/plasOrdered By: Melia Mantilla on 11-20-2024 Carcinoembryonic Ag [Mass/Vol] Serum or plasma carcinoembryonic antigen measurement (mass/volume) 0.0-3.0 [facility] Comment on above: Serial tumor marker results determined by assays using different manufacturers or methods may not be comparable.[facility] data migration consultant and method:i-marker DXI, 2 SITE IMMUNOENZYMATIC SANDWICH ASSAY. Cancer Antigen 125on 025 Cancer Antigen 125 22.2 Normal 0.0-38.1 [facility] Comment on above: Result Comment: [employer] Electrochemiluminescence Immunoassay (ECLIA) Values obtained with different assay methods or kits cannot be used interchangeably. Results cannot be interpreted as absolute evidence of the presence or absence of malignant disease. Performed at: [address] [id number] Bundle Sorter: Ced Masters PhD, Phone: [phone] Performed By: #### Mili ALMEIDA, HCGQNT #### [address] #### AFPTM, CA125, LDI #### [facility] , Choriogonadotropin.beta subu nit [Units/volume] in Serum or PlasmaOrdered By: Melia Mantilla on 11-20-2024 HCG.beta subunit Qn Choriogonadotropin.b eta subunit [Units/volume] in Serum or Plasma [facility] Comment on above: Approximate Approxim ate hCG Gestational Age Range (mIU/ml) (weeks)0.2-1 5-50 1-2 50-500 2-3 100-5,000 3-4 500-10,000 4-5 1,000-50,000 5-6 10,000-100,000 6-8 15,000-200,000 8-12 10,000-100,000 HCG,Quantitativeon 5 HCG,Quantitative <0.60 Normal [facility] Comment on above: Result Comment: Appr oximate Approximate hCG Gestational Age Range (mIU/ml) (weeks) 0.2-1 5-50 1-2 50-500 2-3 100-5,000 3-4 500-10,000 4-5 1,000-50,000 5-6 10,000-100,000 6-8 15,000-200,000 8-12 10,000-100,000 PERFORMED BY: [place] [address] PATHOLOGIST CONSUMER LENDING MANAGER CORNELIUS MARK M.D. Performed By: #### C EA, HCGQNT #### [address] #### AFPTM, CA125, LDI #### [facility] , LD Isoenzymeson 11-20-2024 LD1 Isoenzyme 24 % Normal 17-32 [facility] Comment on above: Performed By: #### C EA, HCGQNT #### [place] [address] [place] #### AFPTM, CA125, LDI #### [facility] , LD2 Isoenzyme 33 % Normal 25-40 [facility] Comment on above: Performed By: #### C EA, HCGQNT #### [place] [address] [place] #### AFPTM, CA125, LDI #### [facility] , LD3 Isoenzyme 20 % Normal 17-27 [facility] Comment on above: Performed By: #### C EA, HCGQNT #### [place] [address] #### AFPTM, CA125, LDI #### [facility] , LD4 Isoenzyme 12 % Normal 5-13 [facility] Comment on above: Performed By: #### C EA, HCGQNT #### [address] #### AFPTM, CA125, LDI #### [facility] , LD5 Isoenzyme 11 % Normal 4-20 [facility] Comment on above: Result Comment: Perf ormed at: - [facility] [address] [id number] Bundle Sorter: Ced Masters PhD, Phone: [phone] Performed at: - [facility] [address] [id number] Bundle Sorter: Klever Echevarria MD, Phone: [phone] PERFORMED BY: [place] [address] PATHOLOGIST CONSUMER LENDING MANAGER CORNELIUS MARK M.D. Performed By: #### C EA, HCGQNT #### [address] #### AFPTM, CA125, LDI #### [facility] , Total LD/Isoenzymes 148 Normal 119-226 [facility] Comment on above: Performed By: #### C EA, HCGQNT #### [address] #### AFPTM, CA125, LDI #### [facility] , Lactate dehydrogenase isoenz yme 1 measurementOrdered By: Melia Mantilla on 11-20-2024 LDH 1 Elph [Catalytic fraction] Lactate dehydrogenase isoenzyme 1 measurement 17-32 [facility] Lactate dehydrogenase isoenz yme 2 measurementOrdered By: Melia Mantilla on 11-20-2024 LDH 2 Elph [Catalytic fraction] Lactate dehydrogenase isoenzyme 2 measurement 25-40 [facility] Lactate dehydrogenase isoenz yme 3 measurementOrdered By: Melia Mantilla on 11-20-2024 LDH 3 Elph [Catalytic fraction] Lactate dehydrogenase isoenzyme 3 measurement 17-27 [facility] Lactate dehydrogenase isoenz yme 4 measurementOrdered By: Melia Mantilla on 11-20-2024 LDH 4 Elph [Catalytic fraction] Lactate dehydrogenase isoenzyme 4 measurement 5-13 [facility] Lactate dehydrogenase isoenz yme 5 measurementOrdered By: Melia Mantilla on 11-20-2024 LDH 5 Elph [Catalytic fraction] Lactate dehydrogenase isoenzyme 5 measurement 4-20 [facility] Comment on above: Performed at: Personal Estate [employer] [address] [id number] Director: Ced Masters PhD, Phone: [phone] at: [facility] [employer] [id number] Director: Klever Echevarria MD, Phone: [phone] Serum or plasma ggzbx-5-czjl protein tumor marker measurement (mass/volume)Ordered By: Melia Mantilla on 11-20-2024 AFP.tumor marker [Mass/Vol] Serum or plasma znxfm-5-jtlglvoleiv tumor marker measurement (mass/volume) High 0.0-4.7 [facility] Comment on above: [employer] ectrochemiluminescence Immunoassay(ECLIA)Values obtained with different assay methods or kits cannotbe used interchangeably. Results cannot be interpreted asabsolute evidence of the presence or absence of malignantdisease.This test is not interpretable in females. Serum or plasma cancer antig en 125 (CA-125) measurement (units/volume)Ordered By: Melia Mantilla on 11-20-2024 Cancer Ag 125 Qn Serum or plasma canc er antigen 125 (CA-125) measurement (units/volume) 0.0-38.1 [facility] Comment on above: [employer] El ectrochemiluminescence Immunoassay(ECLIA)Values obtained with different assay methods or kits cannotbe used interchangeably. Results cannot be interpreted asabsolute evidence of the presence or absence of malignantdisease.Performed at: [facility] [address] [id number] Director: Ced Masters PhD, Phone: [phone] Total lactic dehydrogenase ( LDH) and isoenzymes measurementOrdered By: Melia Igorpillo on 11-20-2024 LDH panel Total lactic dehydrogenase (LDH) and isoenzymes measurement 119-226 [facility] US PELVIC COMPLETE W/ TVon 0 11-06-2024 [...] II, MD, PHD at 07-Nov-2024 08:03:54 AM [facility] Normal Not Available Comment on above: Order Comment: US PE LVIS-TRANSVAG IF INDICATED No LMP recorded. HCG ( test) Ql (U)o n 10-22-2024 Interpretation and review of laboratory results Normal [facility] Preg Test, Ur Negative Negative [facility] Alanine aminotransferase [En zymatic activity/volume] in Serum or PlasmaOrdered By: López Coburn on 10-17-2024 ALT [Catalytic activity/Vol] Alanine aminotransferase [Enzymatic activity/volume] in Serum or Plasma 7-52 [facility] Albumin [Mass/volume] in Ser um or Plasma by Bromocresol green (BCG) dye binding methoOrdered By: López Coburn on 10-17-2024 Albumin BCG dye [Mass/Vol] Albumin [Mass/volume] in Serum or Plasma by Bromocresol green (BCG) dye binding metho 3.5-5.7 [facility] Alkaline phosphatase [Enzyma tic activity/volume] in Serum or PlasmaOrdered By: López Coburn on 10-17-2024 ALP [Catalytic activity/Vol] Alkaline phosphatase [Enzymatic activity/volume] in Serum or Plasma 34-104 [facility] Appearance of UrineOrdered B y: López Coburn on 10-17-2024 Appearance (U) Urine appearance Abnormal Clear [facility] Aspartate aminotransferase [ Enzymatic activity/volume] in Serum or PlasmaOrdered By: López Coburn on 10-17-2024 AST [Catalytic activity/Vol] Aspartate aminotransferase [Enzymatic activity/volume] in Serum or Plasma 13-39 [facility] Bacteria [Presence] in Urine by AutomatedOrdered By: López Coburn on 10-17-2024 Bacteria Auto Ql (U) Bacteria [Presence] in Urine by Automated None Seen [facility] Basophils Auto (Bld) [#/Vol] Ordered By: López Coburn on 10-17-2024 Basophils (Bld) [#/Vol] Automated basophil count 0.0-0.2 [facility] Basophils/100 WBC Auto (Bld) Ordered By: López Coburn on 10-17-2024 Basophils/100 WBC (Bld) Automated basophil % . [facility] Bilirubin Test strip Ql (U)O rdered By: López Coburn on 10-17-2024 Bilirubin Ql (U) Bilirubin.total [Presence] in Urine by Test strip Negative [facility] Bilirubin.total [Mass/volume ] in Serum or PlasmaOrdered By: López Coburn on 10-17-2024 Bilirubin [Mass/Vol] Bilirubin.total [Mass/volume] in Serum or Plasma 0.3-1.0 [facility] Calcium [Mass/volume] in Ser um or PlasmaOrdered By: López Coburn on 10-17-2024 Calcium [Mass/Vol] Calcium [Mass/volume ] in Serum or Plasma High 8.6-10.3 [facility] Carbon dioxide, total [Moles /volume] in Serum or PlasmaOrdered By: López Coburn on 10-17-2024 CO2 [Moles/Vol] Carbon dioxide, tota l [Moles/volume] in Serum or Plasma 21.0-31.0 [facility] Chloride [Moles/volume] in S t[place] or PlasmaOrdered By: López Coburn on 10-17-2024 Chloride [Moles/Vol] Chloride [Moles/vol ume] in Serum or Plasma 98-107 [facility] Color Auto (U)Ordered By: Vidal Coburn on 10-17-2024 Color (U) Color of Urine by Auto Yellow [facility] Complete Blood Count Auto Di ffon 10-17-2024 Basophils (Bld) [#/Vol] 0.0 10*3/uL Normal 0.0-0.2 [facility] Comment on above: Result Comment: PERF ORMED BY: [facility] [address] [place] [address] PATHOLOGIST CONSUMER LENDING MANAGER CORNELIUS MARK M.D. Performed By: #### C BC, CMP ####[address] Basophils/100 WBC (Bld) 0.3 % Normal . Herbert freeman [facility] Comment on above: Performed By: #### C BC, CMP ####[address] Eosinophils (Bld) [#/Vol] 0.0 10*3/uL Normal 0.0-0.45 [facility] Comment on above: Performed By: #### C BC, CMP ####[address] Eosinophils/100 WBC (Bld) 0.1 % Normal . [facility] Comment on above: Performed By: #### C BC, CMP ####[place] [id number] [facility] Erythrocyte distribution width (RBC) [Ratio] 13.5 % Normal 11.9-15.3 [facility] Comment on above: Performed By: #### C BC, CMP ####[place] [id number] [facility] Hematocrit (Bld) [Volume fraction] 40.4 % Normal 34.0-46.4 [facility] Comment on above: Performed By: #### C BC, CMP ####[place] [id number] [facility] Hemoglobin (Bld) [Mass/Vol] 13.9 g/dL Normal 11.8-15.4 [facility] Comment on above: Performed By: #### C JACKIE, CMP ####[place] [id number] [facility] Lymphocytes (Bld) [#/Vol] 1.4 10*3/uL Normal 1.00-4.8 [facility] Comment on above: Performed By: #### C JACKIE, CMP ####[place] [id number] [facility] Lymphocytes/100 WBC (Bld) 20.3 % Normal . [facility] Comment on above: Performed By: #### C JACKIE, CMP ####[place] [id number] [facility] MCH (RBC) [Entitic mass] 29.1 pg Normal 24.7-34.3 [facility] Comment on above: Performed By: #### C BC, CMP ####[place] [id number] [facility] MCV (RBC) [Entitic vol] 84.6 fL Normal 80-100 T [facility] Comment on above: Performed By: #### C BC, CMP ####[place] [id number] [facility] Mean Corpuscular HGB Conc 34.4 g/dL Normal 32.0-35.0 [facility] Comment on above: Performed By: #### C BC, CMP ####[address] [address] [facility] Monocytes (Bld) [#/Vol] 0.7 10*3/uL Normal 0.0-0.8 [facility] Comment on above: Performed By: #### C BC, CMP ####[address] [address] [facility] Monocytes/100 WBC (Bld) 17.74 % Normal 0.00-20.00 T [facility] Comment on above: Performed By: #### C BC, CMP ####[address] [address] [facility] Monocytes/100 WBC (Bld) 9.6 % Normal . [facility] Comment on above: Performed By: #### C BC, CMP ####[address] [address] [facility] Neutrophils (Bld) [#/Vol] 4.8 10*3/uL Normal 1.8-7.7 [facility] Comment on above: Performed By: #### C BC, CMP ####[address] [address] [facility] Neutrophils/100 WBC (Bld) 69.7 % Normal . [facility] Comment on above: Performed By: #### C BC, CMP ####[address] [address] [facility] NRBC% 0.1 /100{WBC} Normal 0-0.5 [facility] Comment on above: Performed By: #### C BC, CMP ####[address] [address] [facility] Platelet mean volume (Bld) [Entitic vol] 8.0 fL Normal 6.3-10.7 [facility] Comment on above: Performed By: #### C BC, CMP ####[address] [address] [facility] Platelets (Bld) [#/Vol] 253 10*3/uL Normal 150-450 [facility] Comment on above: Performed By: #### C BC, CMP ####[address] [address] [facility] RBC (Bld) [#/Vol] 4.77 10*6/uL Normal 3.60-5.00 [facility] Comment on above: Performed By: #### C BC, CMP ####[address] [address] [facility] WBC (Bld) [#/Vol] 7.0 10*3/uL Normal 3.8-11.6 [facility] Comment on above: Performed By: #### C BC, CMP ####[address] [address] [facility] Comprehensive Metabolic Pane emigdio 10-17-2024 Albumin [Mass/Vol] 4.7 g/dL Normal 3.5-5.7 [facility] Comment on above: Performed By: #### C BC, CMP ####[place] [id number] [facility] Albumin/Globulin [Mass ratio] 1.7 {ratio} Normal [facility] Comment on above: Performed By: #### C BC, CMP ####[address] [address] [facility] ALP [Catalytic activity/Vol] 44 U/L Normal 34-104 [facility] Comment on above: Performed By: #### C BC, CMP ####[address] [address] [facility] ALT [Catalytic activity/Vol] 10 U/L Normal 7-52 [facility] Comment on above: Performed By: #### C BC, CMP ####[address] [address] [facility] Anion gap [Moles/Vol] 14.7 mmol/L Normal 6.0-15.0 e [facility] Comment on above: Performed By: #### C BC, CMP ####[address] [address] [facility] AST [Catalytic activity/Vol] 13 U/L Normal 13-39 [facility] Comment on above: Performed By: #### C BC, CMP ####[place] [id number] [facility] Bilirubin [Mass/Vol] 0.4 mg/dL Normal 0.3-1.0 [facility] Comment on above: Performed By: #### C BC, CMP ####[place] [id number] [facility] Calcium [Mass/Vol] 10.4 mg/dL High 8.6-10.3 [facility] Comment on above: Performed By: #### C BC, CMP ####[place] [id number] [facility] Chloride [Moles/Vol] 106 mmol/L Normal 98-107 [facility] Comment on above: Performed By: #### C BC, CMP ####[address] CO2 [Moles/Vol] 23.3 mmol/L Normal 21.0-31.0 [facility] Comment on above: Performed By: #### C BC, CMP ####[address] Creatinine [Mass/Vol] 0.77 mg/dL Normal 0.60-1.20 [facility] Comment on above: Performed By: #### C BC, CMP ####[address] Creatinine Clr Calc Pharmacy 109.29 Normal [facility] Comment on above: Result Comment: PERF ORMED BY: [facility] [address] [place] [id number] PATHOLOGIST [employer] CORNELIUS MARK M.D. Performed By: #### C BC, CMP ####[place] [address] [place] GFR/1.73 sq M.predicted MDRD (S/P/Bld) [Vol rate/Area] mL/min/{1.73_m2} Normal [facility] Comment on above: Performed By: #### C BC, CMP ####[address] [place] [address] [place] Globulin (S) [Mass/Vol] 2.7 g/dL Normal T he [facility] Comment on above: Performed By: #### C BC, CMP ####[address] Glucose [Mass/Vol] 89 mg/dL Normal 70-100 [facility] Comment on above: Result Comment: [facility] Glucose Reference Range is dependent on time and content of last meal. Glucose of more than 200 mg/dL in a nonstressed, ambulatory subject supports the diagnosis of Diabetes Mellitus. ADA recommended reference range Performed By: #### C BC, CMP ####[address] Potassium [Moles/Vol] 4.0 mmol/L Normal 3.5-5.1 [facility] Comment on above: Performed By: #### C BC, CMP ####[address] Protein [Mass/Vol] 7.4 g/dL Normal 6.4-8.9 [facility] Comment on above: Performed By: #### C BC, CMP ####[address] Sodium [Moles/Vol] 140 mmol/L Normal 136-145 [facility] Comment on above: Performed By: #### C BC, CMP ####[address] Urea nitrogen [Mass/Vol] 15 mg/dL Normal 7-25 [facility] Comment on above: Performed By: #### C BC, CMP ####[place] [id number] [facility] Creatinine [Mass/volume] in Serum or PlasmaOrdered By: López Coburn on 10-17-2024 Creatinine [Mass/Vol] Creatinine [Mass/v olume] in Serum or Plasma 0.60-1.20 [facility] Dipstick and Microscopicon 0 10-17-2024 Appearance (U) Cloudy Critically abnormal Clear [facility] Comment on above: Order Comment: Name Collection Type:: Clean-Voided Midstream Performed By: #### A DDONUAPLUS, UHCG #### [place] [address] [place] Bacteria,Urine Rare Normal None Seen [facility] Comment on above: Order Comment: Name Collection Type:: Clean-Voided Midstream Performed By: #### A DDONUAPLUS, UHCG #### [place] [address] [place] Bilirubin,Urine Negative Normal Negative [facility] Comment on above: Order Comment: Name Collection Type:: Clean-Voided Midstream Performed By: #### A DDONUAPLUS, UHCG #### [place] [address] [place] Color (U) Yellow Normal Yellow [facility] Comment on above: Order Comment: Name Collection Type:: Clean-Voided Midstream Performed By: #### A DDONUAPLUS, UHCG #### [address] Glucose Ql (U) Normal Normal Normal [facility] Comment on above: Order Comment: Name Collection Type:: Clean-Voided Midstream Performed By: #### A DDONUAPLUS, UHCG #### [place] [address] [place] Hyaline Casts,Urine 9 [LPF] High 0-8 [facility] Comment on above: Order Comment: Name Collection Type:: Clean-Voided Midstream Performed By: #### A DDONUAPLUS, UHCG #### [place] [address] [place] Ketones Ql (U) 2+ High Negative [facility] Comment on above: Order Comment: Name Collection Type:: Clean-Voided Midstream Performed By: #### A DDONUAPLUS, UHCG #### [address] Leukocyte esterase Test strip Ql (U) Negative Normal Negative [facility] Comment on above: Order Comment: Name Collection Type:: Clean-Voided Midstream Performed By: #### A DDONUAPLUS, UHCG #### [address] Mucus,Urine 4+ Critically abnormal [facility] Comment on above: Order Comment: Name Collection Type:: Clean-Voided Midstream Performed By: #### A DDONUAPLUS, UHCG #### [address] Nitrite,Urine Negative Normal Negative [facility] Comment on above: Order Comment: Name Collection Type:: Clean-Voided Midstream Performed By: #### A DDONUAPLUS, UHCG #### [address] Occult Blood,Urine Negative Normal Negative [facility] Comment on above: Order Comment: Name Collection Type:: Clean-Voided Midstream Performed By: #### A DDONUAPLUS, UHCG #### [address] pH (U) 6.0 [pH] Normal 5.0-9.0 [facility] Comment on above: Order Comment: Name Collection Type:: Clean-Voided Midstream Performed By: #### A DDONUAPLUS, UHCG #### [address] Protein (U) [Mass/Vol] 30 mg/dL High Negative Th e [facility] Comment on above: Order Comment: Name Collection Type:: Clean-Voided Midstream Performed By: #### A DDONUAPLUS, UHCG #### [address] RBC,Urine 1 [HPF] Normal 0-4 [facility] Comment on above: Order Comment: Name Collection Type:: Clean-Voided Midstream Performed By: #### A DDONUAPLUS, UHCG #### [address] Specificy [place],Urine 1.039 High 1.00 1-1.03 0 [facility] Comment on above: Order Comment: Name Collection Type:: Clean-Voided Midstream Performed By: #### A DDONUAPLUS, UHCG #### [facility] [address] Squamous Epithelial Cell,Urine 10 [HPF] High 0-2 [facility] Comment on above: Order Comment: Name Collection Type:: Clean-Voided Midstream Performed By: #### A DDONUAPLUS, UHCG #### [address] Urobilinogen,Urine 2 mg/dL High Normal [facility] Comment on above: Order Comment: Name Collection Type:: Clean-Voided Midstream Performed By: #### A DDONUAPLUS, UHCG #### [address] WBC,Urine 3 [HPF] Normal 0-4 [facility] Comment on above: Order Comment: Name Collection Type:: Clean-Voided Midstream Performed By: #### A DDONUAPLUS, UHCG #### [address] Eosinophils Auto (Bld) [#/Vo l]Ordered By: López Coburn on 10-17-2024 Eosinophils (Bld) [#/Vol] Automated eosinophil count 0.0-0.45 [facility] Eosinophils/100 WBC Auto (Bl d)Ordered By: López Coburn on 10-17-2024 Eosinophils/100 WBC (Bld) Automated eosinophil % . [facility] Epithelial cells.squamous [# /area] in Urine sediment by Automated countOrdered By: López Coburn on 10-17-2024 Epithelial cells.squamous Auto (Urine sed) [#/Area] Epithelial cells.squamous [#/area] in Urine sediment by Automated count High 0-2 [facility] Erythrocyte distribution wid th Auto (RBC) [Ratio]Ordered By: López Coburn on 10-17-2024 Erythrocyte distribution width (RBC) [Ratio] Erythrocyte distribution width [Ratio] by Automated count 11.9-15.3 [facility] Erythrocytes [#/area] in Uri ne sediment by Automated countOrdered By: López Coburn on 10-17-2024 RBC Auto (Urine sed) [#/Area] Erythrocytes [#/area] in Urine sediment by Automated count 0-4 [facility] Globulin Calc (S) [Mass/Vol] Ordered By: López Coburn on 10-17-2024 Globulin (S) [Mass/Vol] Serum globulin measurement by calculation (mass/volume) [facility] Glucose [Mass/volume] in Ser um or PlasmaOrdered By: López Coburn on 10-17-2024 Glucose [Mass/Vol] Glucose [Mass/volume ] in Serum or Plasma 70-100 [facility] Comment on above: ADA recommended refe rence rangeRandom Glucose Reference Range is dependent on time and content of last meal. Glucose of more than 200 mg/dL in a nonstressed, ambulatory subject supports the diagnosis of Diabetes Mellitus. Glucose [Mass/volume] in Uri ne by Test stripOrdered By: López Coburn on 10-17-2024 Glucose Test strip (U) [Mass/Vol] Glucose [Mass/volume] in Urine by Test strip Normal [facility] HCG ( test) IA.rapi d Ql (U)Ordered By: López Coburn on 10-17-2024 HCG ( test) Ql (U) Urine human chorionic gonadotropin (hCG) detection by immunoassay [facility] HCG,Urineon 10-17-2024 Beta HCG ( test) Ql (U) Negative Normal [facility] Comment on above: Order Comment: Name Collection Type:: Clean-Voided Midstream Result Comment: PERF ORMED BY: [place] [address] PATHOLOGIST [employer]NAGER CORNELIUS MARK M.D. Performed By: #### A DDONUAPLUS, [facility] #### [address] Hematocrit Auto (Bld) [Volum e fraction]Ordered By: López Coburn on 10-17-2024 Hematocrit (Bld) [Volume fraction] Hematocrit [Volume Fraction] of Blood by Automated count 34.0-46.4 [facility] Hemoglobin Test strip Ql (U) Ordered By: López Coburn on 10-17-2024 Hemoglobin Ql (U) Hemoglobin [Presence ] in Urine by Test strip Negative [facility] Hemoglobin [Mass/volume] in BloodOrdered By: López Coburn on 10-17-2024 Hemoglobin (Bld) [Mass/Vol] Hemoglobin [Mass/volume] in Blood 11.8-15.4 [facility] Hyaline casts [#/area] in Ur ine sediment by Automated countOrdered By: López Coburn on 10-17-2024 Hyaline casts Auto (Urine sed) [#/Area] Hyaline casts [#/area] in Urine sediment by Automated count High 0-8 [facility] Ketones Test strip Ql (U)Ord ered By: López Coburn on 10-17-2024 Ketones Ql (U) Ketones [Presence] i n Urine by Test strip High Negative [facility] Leukocyte esterase [Presence ] in Urine by Test stripOrdered By: López Coburn on 10-17-2024 Leukocyte esterase Test strip Ql (U) Leukocyte esterase [Presence] in Urine by Test strip Negative [facility] Leukocytes [#/area] in Urine sediment by Automated countOrdered By: López Coburn on 10-17-2024 WBC Auto (Urine sed) [#/Area] Leukocytes [#/area] in Urine sediment by Automated count 0-4 [facility] Leukocytes [#/volume] correc nicole for nucleated erythrocytes in Blood by Automated counOrdered By: López Coburn on 10-17-2024 WBC corrected for nucl RBC Auto (Bld) [#/Vol] Leukocytes [#/volume] corrected for nucleated erythrocytes in Blood by Automated coun 3.8-11.6 [facility] Lymphocytes Auto (Bld) [#/Vo l]Ordered By: López Coburn on 10-17-2024 Lymphocytes (Bld) [#/Vol] Lymphocytes [#/volume] in Blood by Automated count 1.00-4.8 [facility] Lymphocytes/100 WBC Auto (Bl d)Ordered By: López Coburn on 10-17-2024 Lymphocytes/100 WBC (Bld) Lymphocytes/100 leukocytes in Blood by Automated count . [facility] MCH Auto (RBC) [Entitic mass ]Ordered By: López Coburn on 10-17-2024 MCH (RBC) [Entitic mass] MCH [Entitic ma ss] by Automated count 24.7-34.3 [facility] MCHC Auto (RBC) [Mass/Vol]Or dered By: López Coburn on 10-17-2024 MCHC (RBC) [Mass/Vol] MCHC [Mass/volume] by Automated count 32.0-35.0 [facility] MCV Auto (RBC) [Entitic vol] Ordered By: López Coburn on 10-17-2024 MCV (RBC) [Entitic vol] MCV [Entitic vol ume] by Automated count 80-100 [facility] Monocyte distribution width [Entitic volume] in Blood by AutomatedOrdered By: López Coburn on 10-17-2024 Monocyte distribution width Auto (Bld) [Entitic vol] Monocyte distribution width [Entitic volume] in Blood by Automated 0.00-20.00 [facility] Monocytes Auto (Bld) [#/Vol] Ordered By: López Coburn on 10-17-2024 Monocytes (Bld) [#/Vol] Automated blood monocyte count 0.0-0.8 [facility] Monocytes/100 WBC Auto (Bld) Ordered By: López Coburn on 10-17-2024 Monocytes/100 WBC (Bld) Automated monocyte % . [facility] Mucus [Presence] in Urine by AutomatedOrdered By: López Coburn on 10-17-2024 Mucus Auto Ql (U) Mucus [Presence] in Urine by Automated Abnormal [facility] Neutrophils Auto (Bld) [#/Vo l]Ordered By: López Coburn on 10-17-2024 Neutrophils (Bld) [#/Vol] Neutrophils [#/volume] in Blood by Automated count 1.8-7.7 [facility] Neutrophils/100 WBC Auto (Bl d)Ordered By: López Coburn on 10-17-2024 Neutrophils/100 WBC (Bld) Automated neutrophil % . [facility] Nitrite Test strip Ql (U)Ord ered By: López Coburn on 10-17-2024 Nitrite Ql (U) Nitrite [Presence] i n Urine by Test strip Negative [facility] No Panel InformationOrdered By: López Coburn on 10-17-2024 Estimated GFR (CKD-EPI) > 60.0 mL/Min [facility] Creatinine Clearance (Chem 109.29 [facility] Nucleated erythrocytes [Pres ence] in Blood by Automated countOrdered By: López Coburn on 10-17-2024 Nucleated RBC Auto Ql (Bld) Nucleated erythrocytes [Presence] in Blood by Automated count 0-0.5 [facility] Platelet mean volume Auto (B ld) [Entitic vol]Ordered By: López Coburn on 10-17-2024 Platelet mean volume (Bld) [Entitic vol] Platelet mean volume [Entitic volume] in Blood by Automated count 6.3-10.7 [facility] Platelets Auto (Bld) [#/Vol] Ordered By: López Coburn on 10-17-2024 Platelets (Bld) [#/Vol] Platelets [#/vol ume] in Blood by Automated count 150-450 [facility] Potassium [Moles/volume] in Serum or PlasmaOrdered By: López Coburn on 10-17-2024 Potassium [Moles/Vol] Potassium [Moles/v olume] in Serum or Plasma 3.5-5.1 [facility] Protein Test strip (U) [Mass /Vol]Ordered By: López Coubrn on 10-17-2024 Protein (U) [Mass/Vol] Protein [Mass/vol ume] in Urine by Test strip High Negative [facility] Protein [Mass/volume] in Ser um or PlasmaOrdered By: López Coburn on 10-17-2024 Protein [Mass/Vol] Protein [Mass/volume ] in Serum or Plasma 6.4-8.9 [facility] RBC Auto (Bld) [#/Vol]Ordere d By: López Coburn on 10-17-2024 RBC (Bld) [#/Vol] Erythrocytes [#/volu me] in Blood by Automated count 3.60-5.00 [facility] Serum or plasma albumin/glob ulin mass ratioOrdered By: López Coburn on 10-17-2024 Albumin/Globulin [Mass ratio] Serum or plasma albumin/globulin mass ratio [facility] Serum or plasma anion gap de terminationOrdered By: López Coburn on 10-17-2024 Anion gap [Moles/Vol] Serum or plasma an ion gap determination 6.0-15.0 [facility] Sodium [Moles/volume] in Ser um or PlasmaOrdered By: López Coburn on 10-17-2024 Sodium [Moles/Vol] Sodium [Moles/volume ] in Serum or Plasma 136-145 [facility] Specific gravity Test strip (U) [Rel density]Ordered By: López Coburn on 10-17-2024 Specific gravity (U) [Rel density] Specific gravity of Urine by Test strip High 1.001-1.03 0 [facility] Urea nitrogen [Mass/volume] in Serum or PlasmaOrdered By: López Coburn on 10-17-2024 Urea nitrogen [Mass/Vol] Urea nitrogen [Mass/volume] in Serum or Plasma 04-12 [facility] Urobilinogen Test strip (U) [Mass/Vol]Ordered By: López Coburn on 10-17-2024 Urobilinogen (U) [Mass/Vol] Urobilinogen [Mass/volume] in Urine by Test strip High Normal [facility] WBC Auto (Bld) [#/Vol]Ordere d By: López Coburn on 10-17-2024 WBC (Bld) [#/Vol] Leukocytes [#/volume ] in Blood by Automated count 3.8-11.6 [facility] pH Test strip (U)Ordered By: López Coburn on 10-17-2024 pH (U) pH of Urine by Test strip 5.0-9.0 [facility] Alanine aminotransferase [En zymatic activity/volume] in Serum or PlasmaOrdered By: Melia Mantilla on 07-25-2024 ALT [Catalytic activity/Vol] 9 U/L Normal [facility] Comment on above: Performed By: #### C SUSAN MG ####[facility] [id number] [place] [id number] [facility] ALT [Catalytic activity/Vol] Alanine aminotransferase [Enzymatic activity/volume] in Serum or Plasma [facility] Albumin [Mass/volume] in Ser um or Plasma by Bromocresol green (BCG) dye binding methoOrdered By: Melia Mantilla on 07-25-2024 Albumin BCG dye [Mass/Vol] 4.4 g/dL 3.5-5.7 [facility] Albumin BCG dye [Mass/Vol] Albumin [Mass/volume] in Serum or Plasma by Bromocresol green (BCG) dye binding metho 3.5-5.7 [facility] Alkaline phosphatase [Enzyma tic activity/volume] in Serum or PlasmaOrdered By: Melia Mantilla on 07-25-2024 ALP [Catalytic activity/Vol] 42 U/L Normal 34-104 [facility] Comment on above: Performed By: #### C MP, MG ####[place] [id number] [address] ALP [Catalytic activity/Vol] Alkaline phosphatase [Enzymatic activity/volume] in Serum or Plasma 34-104 [facility] Aspartate aminotransferase [ Enzymatic activity/volume] in Serum or PlasmaOrdered By: Melia Mantilla on 07-25-2024 AST [Catalytic activity/Vol] 10 U/L Low [address] Comment on above: Performed By: #### C MP, MG ####[address] AST [Catalytic activity/Vol] Aspartate aminotransferase [Enzymatic activity/volume] in Serum or Plasma Low [address] Automated basophil %Ordered By: Melia Mantilla on 07-25-2024 Basophils/100 WBC (Bld) 0.5 % Normal . [facility] Comment on above: Performed By: #### C BC ####[address] Automated basophil countOrde red By: Melia Mantilla on 07-25-2024 Basophils (Bld) [#/Vol] 0.0 10*3/uL Normal 0.0-0.2 [facility] Comment on above: Result Comment: PERF ORMED BY: [facility] [address] [facility] [place] [address] PATHOLOGIST [employer] BORIS ELIZABETH M.D. Performed By: #### C BC ####[place] [id number] [facility] Automated blood monocyte cou ntOrdered By: Melia Mantilla on 07-25-2024 Monocytes (Bld) [#/Vol] 0.5 10*3/uL Normal 0.0-0.8 [facility] Comment on above: Performed By: #### C BC ####[place] [id number] [facility] Automated eosinophil %Ordere d By: Melia Mantilla on 07-25-2024 Eosinophils/100 WBC (Bld) 0.7 % Normal . [facility] Comment on above: Performed By: #### C BC ####[address] Automated eosinophil countOr dered By: Melia Mantilla on 07-25-2024 Eosinophils (Bld) [#/Vol] 0.0 10*3/uL Normal 0.0-0.45 [facility] Comment on above: Performed By: #### C BC ####[address] Automated monocyte %Ordered By: Melia Mantilla on 07-25-2024 Monocytes/100 WBC (Bld) 7.2 % Normal . [facility] Comment on above: Performed By: #### C BC ####[address] Automated neutrophil %Ordere d By: Melia Mantilla on 07-25-2024 Neutrophils/100 WBC (Bld) 56.4 % Normal . [facility] Comment on above: Performed By: #### C BC ####[address] Basophils Auto (Bld) [#/Vol] Ordered By: Melia Mantilla on 07-25-2024 Basophils (Bld) [#/Vol] Automated basophil count 0.0-0.2 [facility] Basophils/100 WBC Auto (Bld) Ordered By: Melia Mantilla on 07-25-2024 Basophils/100 WBC (Bld) Automated basophil % . [facility] Bilirubin.total [Mass/volume ] in Serum or PlasmaOrdered By: Melia Mantilla on 07-25-2024 Bilirubin [Mass/Vol] 0.4 mg/dL Normal 0.3-1.0 [facility] Comment on above: Performed By: #### C MP, MG ####[address] Bilirubin [Mass/Vol] Bilirubin.total [Mass/volume] in Serum or Plasma 0.3-1.0 [facility] Calcium [Mass/volume] in Ser um or PlasmaOrdered By: Melia Mantilla on 07-25-2024 Calcium [Mass/Vol] 9.7 mg/dL Normal 8.6-10.3 [facility] Comment on above: Performed By: #### C MP, MG ####[place] [id number] Calcium [Mass/Vol] Calcium [Mass/volume ] in Serum or Plasma 8.6-10.3 [facility] Carbon dioxide, total [Moles /volume] in Serum or PlasmaOrdered By: Melia Mantilla on 07-25-2024 CO2 [Moles/Vol] 31.2 mmol/L High 21.0-31.0 [facility] Comment on above: Performed By: #### C MP, MG ####[address] CO2 [Moles/Vol] Carbon dioxide, tota l [Moles/volume] in Serum or Plasma High 21.0-31.0 [facility] Chloride [Moles/volume] in S [place] or PlasmaOrdered By: Melia Mantilla on 07-25-2024 Chloride [Moles/Vol] 108 mmol/L High 98-107 [facility] Comment on above: Performed By: #### C MP, MG ####[address] Chloride [Moles/Vol] Chloride [Moles/vol ume] in Serum or Plasma High 98-107 [facility] Complete Blood Count Auto Di ffon 07-25-2024 Mean Corpuscular HGB Conc 33.8 g/dL Normal 32.0-35.0 [facility] Comment on above: Performed By: #### C BC ####[address] NRBC% 0.1 /100{WBC} Normal 0-0.5 [facility] Comment on above: Performed By: #### C BC ####[address] Comprehensive Metabolic Pane emigdio 07-25-2024 Albumin [Mass/Vol] 4.4 g/dL Normal 3.5-5.7 [facility] Comment on above: Performed By: #### C MP, MG ####[place] [id number] GFR/1.73 sq M.predicted MDRD (S/P/Bld) [Vol rate/Area] mL/min/{1.73_m2} Normal [facility] Comment on above: Performed By: #### C MP, MG ####[place] [id number] Creatinine [Mass/volume] in Serum or PlasmaOrdered By: Melia Mantilla on 07-25-2024 Creatinine [Mass/Vol] 0.81 mg/dL Normal 0.60-1.20 [facility] Comment on above: Performed By: #### C MP, MG ####[place] [id number] Creatinine [Mass/Vol] Creatinine [Mass/v olume] in Serum or Plasma 0.60-1.20 [facility] Eosinophils Auto (Bld) [#/Vo l]Ordered By: Melia Mantilla on 07-25-2024 Eosinophils (Bld) [#/Vol] Automated eosinophil count 0.0-0.45 [facility] Eosinophils/100 WBC Auto (Bl d)Ordered By: Melia Mantilla on 07-25-2024 Eosinophils/100 WBC (Bld) Automated eosinophil % . [facility] Erythrocyte distribution wid th Auto (RBC) [Ratio]Ordered By: Melia Mantilla on 07-25-2024 Erythrocyte distribution width (RBC) [Ratio] Erythrocyte distribution width [Ratio] by Automated count 11.9-15.3 [facility] Erythrocyte distribution wid th [Ratio] by Automated countOrdered By: Melia Mantilla on 07-25-2024 Erythrocyte distribution width (RBC) [Ratio] 13.8 % Normal 11.9-15.3 [facility] Comment on above: Performed By: #### C BC ####[place] [address] [place] Erythrocytes [#/volume] in B lood by Automated countOrdered By: Melia Mantilla on 07-25-2024 RBC (Bld) [#/Vol] 4.85 10*6/uL Normal 3.60-5.00 [facility] Comment on above: Performed By: #### C BC ####[place] [address] [place] [id number] [facility] Globulin Calc (S) [Mass/Vol] Ordered By: Melia Mantilla on 07-25-2024 Globulin (S) [Mass/Vol] Serum globulin measurement by calculation (mass/volume) [facility] Glucose [Mass/volume] in Ser um or PlasmaOrdered By: Melia Mantilla on 07-25-2024 Glucose [Mass/Vol] 91 mg/dL Normal 70-100 [facility] Comment on above: ADA recommended refe rence rangeRandom Glucose Reference Range is dependent on time and content of last meal. Glucose of more than 200 mg/dL in a nonstressed, ambulatory subject supports the diagnosis of Diabetes Mellitus. Result Comment: [place] Glucose Reference Range is dependent on time and content of last meal. Glucose of more than 200 mg/dL in a nonstressed, ambulatory subject supports the diagnosis of Diabetes Mellitus. ADA recommended reference range Performed By: #### C MP, MG ####[place] [id number] [facility] Glucose [Mass/Vol] Glucose [Mass/volume ] in Serum or Plasma 70-100 [facility] Comment on above: ADA recommended refe rence rangeRandom Glucose Reference Range is dependent on time and content of last meal. Glucose of more than 200 mg/dL in a nonstressed, ambulatory subject supports the diagnosis of Diabetes Mellitus. Hematocrit Auto (Bld) [Volum e fraction]Ordered By: Melia Mantilla on 07-25-2024 Hematocrit (Bld) [Volume fraction] Hematocrit [Volume Fraction] of Blood by Automated count 34.0-46.4 [facility] Hematocrit [Volume Fraction] of Blood by Automated countOrdered By: Melia Mantilla on 07-25-2024 Hematocrit (Bld) [Volume fraction] 41.7 % Normal 34.0-46.4 [facility] Comment on above: Performed By: #### C BC ####[place] [address] [place] [id number] [facility] Hemoglobin [Mass/volume] in BloodOrdered By: Melia Mantilla on 07-25-2024 Hemoglobin (Bld) [Mass/Vol] 14.1 g/dL Normal 11.8-15.4 [facility] Comment on above: Performed By: #### C BC ####[place] [id number] Hemoglobin (Bld) [Mass/Vol] Hemoglobin [Mass/volume] in Blood 11.8-15.4 [facility] Leukocytes [#/volume] correc nicole for nucleated erythrocytes in Blood by Automated counOrdered By: Melia Mantilla on 07-25-2024 WBC corrected for nucl RBC Auto (Bld) [#/Vol] 6.7 10*3/uL 3.8-11.6 [facility] WBC corrected for nucl RBC Auto (Bld) [#/Vol] Leukocytes [#/volume] corrected for nucleated erythrocytes in Blood by Automated coun 3.8-11.6 [facility] Leukocytes [#/volume] in Blo od by Automated countOrdered By: Melia Mantilla on 07-25-2024 WBC (Bld) [#/Vol] 6.7 10*3/uL Normal 3.8-11.6 [facility] Comment on above: Performed By: #### C BC ####[address] Lymphocytes Auto (Bld) [#/Vo l]Ordered By: Melia Mantilla on 07-25-2024 Lymphocytes (Bld) [#/Vol] Lymphocytes [#/volume] in Blood by Automated count 1.00-4.8 [facility] Lymphocytes [#/volume] in Bl ood by Automated countOrdered By: Melia Mantilla on 07-25-2024 Lymphocytes (Bld) [#/Vol] 2.3 10*3/uL Normal 1.00-4.8 [facility] Comment on above: Performed By: #### C BC ####[address] Lymphocytes/100 WBC Auto (Bl d)Ordered By: Melia Mantilla on 07-25-2024 Lymphocytes/100 WBC (Bld) Lymphocytes/100 leukocytes in Blood by Automated count . [facility] Lymphocytes/100 leukocytes i n Blood by Automated countOrdered By: Melia Mantilla on 07-25-2024 Lymphocytes/100 WBC (Bld) 35.2 % Normal . [facility] Comment on above: Performed By: #### C BC ####[facility] [id number] [place] [id number] [facility] MCH Auto (RBC) [Entitic mass ]Ordered By: Melia Mantilla on 07-25-2024 MCH (RBC) [Entitic mass] MCH [Entitic ma ss] by Automated count 24.7-34.3 [facility] MCH [Entitic mass] by Automa nicole countOrdered By: Melia Mantilla on 07-25-2024 MCH (RBC) [Entitic mass] 29.1 pg Normal 24.7-34.3 [facility] Comment on above: Performed By: #### C BC ####[facility] [id number] MCHC Auto (RBC) [Mass/Vol]Or dered By: Melia Mantilla on 07-25-2024 MCHC (RBC) [Mass/Vol] 33.8 g/dL 32.0-35.0 [facility] MCHC (RBC) [Mass/Vol] MCHC [Mass/volume] by Automated count 32.0-35.0 [facility] MCV Auto (RBC) [Entitic vol] Ordered By: Melia Mantilla on 07-25-2024 MCV (RBC) [Entitic vol] MCV [Entitic vol ume] by Automated count 80-100 [facility] MCV [Entitic volume] by Auto mated countOrdered By: Melia Mantilla on 07-25-2024 MCV (RBC) [Entitic vol] 86.1 fL Normal 80-100 [facility] Comment on above: Performed By: #### C BC ####[facility] [id number] Magnesium [Mass/volume] in [place] or PlasmaOrdered By: Melia Mantilla on 07-25-2024 Magnesium [Mass/Vol] 1.9 mg/dL Normal 1.9-2.7 [facility] Comment on above: Result Comment: PERF ORMED BY: [facility] [address] [place] [address] PATHOLOGIST [employer] BORIS ELIZABETH M.D. Performed By: #### C MP, MG ####[facility] [id number] [place] [id number] [facility] Magnesium [Mass/Vol] Magnesium [Mass/vol ume] in Serum or Plasma 1.9-2.7 [facility] Monocytes Auto (Bld) [#/Vol] Ordered By: Melia Mantilla on 07-25-2024 Monocytes (Bld) [#/Vol] Automated blood monocyte count 0.0-0.8 [facility] Monocytes/100 WBC Auto (Bld) Ordered By: Melia Mantilla on 07-25-2024 Monocytes/100 WBC (Bld) Automated monocyte % . [facility] Neutrophils Auto (Bld) [#/Vo l]Ordered By: Melia Mantilla on 07-25-2024 Neutrophils (Bld) [#/Vol] Neutrophils [#/volume] in Blood by Automated count 1.8-7.7 [facility] Neutrophils [#/volume] in Bl ood by Automated countOrdered By: Melia Mantilla on 07-25-2024 Neutrophils (Bld) [#/Vol] 3.8 10*3/uL Normal 1.8-7.7 [facility] Comment on above: Performed By: #### C BC ####[place] [id number] [place] [id number] [facility] Neutrophils/100 WBC Auto (Bl d)Ordered By: Melia Mantilla on 07-25-2024 Neutrophils/100 WBC (Bld) Automated neutrophil % . [facility] No Panel InformationOrdered By: Melia Mantilla on 07-25-2024 Estimated GFR (CKD-EPI) > 60.0 mL/Min [facility] Creatinine Clearance (Chem N/A [facility] Nucleated erythrocytes [Pres ence] in Blood by Automated countOrdered By: Melia Mantilla on 07-25-2024 Nucleated RBC Auto Ql (Bld) 0.1 /100{WBC} 0-0.5 [facility] Nucleated RBC Auto Ql (Bld) Nucleated erythrocytes [Presence] in Blood by Automated count 0-0.5 [facility] Platelet mean volume Auto (B ld) [Entitic vol]Ordered By: Melia Mantilla on 07-25-2024 Platelet mean volume (Bld) [Entitic vol] Platelet mean volume [Entitic volume] in Blood by Automated count 6.3-10.7 [facility] Platelet mean volume [Entiti c volume] in Blood by Automated countOrdered By: Melia Mantilla on 07-25-2024 Platelet mean volume (Bld) [Entitic vol] 7.8 fL Normal 6.3-10.7 [facility] Comment on above: Performed By: #### C BC ####[place] [id number] Platelets Auto (Bld) [#/Vol] Ordered By: Melia Mantilla on 07-25-2024 Platelets (Bld) [#/Vol] Platelets [#/vol ume] in Blood by Automated count 150-450 [facility] Platelets [#/volume] in Bloo d by Automated countOrdered By: Melia Mantilla on 07-25-2024 Platelets (Bld) [#/Vol] 280 10*3/uL Normal 150-450 [facility] Comment on above: Performed By: #### C BC ####[address] Potassium [Moles/volume] in Serum or PlasmaOrdered By: Melia Mantilla on 07-25-2024 Potassium [Moles/Vol] 4.1 mmol/L Normal 3.5-5.1 [facility] Comment on above: Performed By: #### C MP, MG ####[place] [id number] [facility] Potassium [Moles/Vol] Potassium [Moles/v olume] in Serum or Plasma 3.5-5.1 [facility] Protein [Mass/volume] in Ser um or PlasmaOrdered By: Melia Mantilla on 07-25-2024 Protein [Mass/Vol] 6.5 g/dL Normal 6.4-8.9 [facility] Comment on above: Performed By: #### C MP, MG ####[place] [id number] [facility] Protein [Mass/Vol] Protein [Mass/volume ] in Serum or Plasma 6.4-8.9 [facility] RBC Auto (Bld) [#/Vol]Ordere d By: Melia Mantilla on 07-25-2024 RBC (Bld) [#/Vol] Erythrocytes [#/volu me] in Blood by Automated count 3.60-5.00 [facility] Serum globulin measurement b y calculation (mass/volume)Ordered By: Melia Mantilla on 07-25-2024 Globulin (S) [Mass/Vol] 2.1 g/dL Normal [facility] Comment on above: Performed By: #### C SUSAN, MG ####[address] Serum or plasma albumin/glob ulin mass ratioOrdered By: Melia Mantilla on 07-25-2024 Albumin/Globulin [Mass ratio] 2.1 {ratio} Normal [facility] Comment on above: Performed By: #### C SUSAN, MG ####[place] [id number] [facility] Albumin/Globulin [Mass ratio] Serum or plasma albumin/globulin mass ratio [facility] Serum or plasma anion gap de terminationOrdered By: Melia Mantilla on 07-25-2024 Anion gap [Moles/Vol] 7.9 mmol/L Normal 6.0-15.0 [facility] Comment on above: Performed By: #### C MP, MG ####[place] [id number] [facility] Anion gap [Moles/Vol] Serum or plasma an ion gap determination 6.0-15.0 [facility] Sodium [Moles/volume] in Ser um or PlasmaOrdered By: Melia Mantilla on 07-25-2024 Sodium [Moles/Vol] 143 mmol/L Normal 136-145 [facility] Comment on above: Performed By: #### C MP, MG ####[place] [id number] [facility] Sodium [Moles/Vol] Sodium [Moles/volume ] in Serum or Plasma 136-145 [facility] Urea nitrogen [Mass/volume] in Serum or PlasmaOrdered By: Melia Mantilla on 07-25-2024 Urea nitrogen [Mass/Vol] 11 mg/dL Normal 04-12 [facility] Comment on above: Performed By: #### C MP, MG ####[facility] [id number] Urea nitrogen [Mass/Vol] Urea nitrogen [Mass/volume] in Serum or Plasma 04-12 [facility] WBC Auto (Bld) [#/Vol]Ordere d By: Melia Mantilla on 07-25-2024 WBC (Bld) [#/Vol] Leukocytes [#/volume ] in Blood by Automated count 3.8-11.6 [facility] XR lumbar spine 2-3V*on XR lumbar spine 2-3V* [facility] [address] [place] [address] [place] [address] XRay Report Signed Patient: Berenice Lopez MR#: [id number] 2 : 2005 Acct:[id number] Age/Sex: 18 / F ADM Date: 07/25/24 Loc: XD Room: Type: [facility] Attending Dr: Melia Mantilla CANAL EQUIPMENT MECHANIC-C Copies to: Melia aMntilla CNP Ordering Provider: Melia Mantilla CNP Date [...] Shepard Jr., D.O.07/25/2024 3:34 PM Dictation Location: [place] [address] Transcribed By: [facility] 07/25/24 153 Dictated By: Sea Shepard Jr, DO 07/25/24 153 Signed By: 07/25/24 1534 [facility] XR si jointson 07-25-2024 XR si joints [facility] [address] [place] [address] [place] [address] XRay Report Signed Patient: Berenice Lopez MR#: [id number] 2 : 2005 Acct:[id number] Age/Sex: 18 / F ADM Date: 07/25/24 Loc: XD Room: Type: [facility] Attending Dr: Melia Mantilla CANAL EQUIPMENT MECHANIC-C Copies to: Melia Mantilla CNP Ordering Provider: [...] Shepard Jr., D.O.07/25/2024 3:35 PM Dictation Location: [place] [address] Transcribed By: [facility] 07/25/24 153 Dictated By: Sea Shepard Jr, DO 07/25/241533 Signed By: 07/25/24 1535 Normal [facility] ALL LDHon 11-03-2023 LDH [Catalytic activity/Vol] 129 U/L 81 - 234 U/L [facility] XR LSPINE MIN 4 VIEWSon 12-19 [...] by: JOY CARDOZA Date: 2023-01-10 11:59 Normal [facility] CBC AUTO DIFFon 11-12-2022 BASO # 0.0 103/ul Normal 0.0-0.1 [facility] Comment on above: Performed By: #### C BC #### [facility] [address] [place] [address] [address] Hilda Harden Basophils/100 WBC (Bld) 0.3 % Normal 0.2-2.0 [facility] Comment on above: Performed By: #### C BC #### [facility] [address] [place] [address] Dr. Hilda Harden EO # 0.1 103/ul Normal 0.0-0.7 [facility] Comment on above: Performed By: #### C BC #### [facility] [address] [place] [address] Dr. Hilda Harden Eosinophils/100 WBC (Bld) 1.3 % Normal 0.9-7.0 [facility] Comment on above: Performed By: #### C BC #### [facility] [address] [place] [address] Dr. Hilda Harden Erythrocyte distribution width (RBC) [Ratio] 13.3 % Normal 11.0-15.0 [facility] Comment on above: Performed By: #### C BC #### [facility] [address] [place] [address] Dr. Hilda Harden Hematocrit (Bld) [Volume fraction] 40.9 % Normal 36.0-48.0 [facility] Comment on above: Performed By: #### C BC #### [facility] [address] [place] [address] Dr. Hilda Harden Hemoglobin (Bld) [Mass/Vol] 13.9 g/dL Normal 12.0-16.0 [facility] Comment on above: Performed By: #### C BC #### [facility] [address] [place] [address] Dr. Hilda Harden IG # 0.02 10e3/ul Normal 0.00-0.03 [facility] Comment on above: Performed By: #### C BC #### [facility] [address] [place] [address] Dr. Hilda Harden IG % 0.3 % Normal 0.0-0.5 [facility] Comment on above: Performed By: #### C BC #### [facility] [address] [place] [address] Dr. Hilda Harden LYMPH # 2.5 103/ul Normal 1.2-3.8 [facility] Comment on above: Performed By: #### C BC #### [facility] [address] [place] [address] Dr. Hilda Harden Lymphocytes/100 WBC (Bld) 41.4 % Normal 20.5-60.0 [facility] Comment on above: Performed By: #### C BC #### [facility] [address] [place] [address] Dr. Hilda Harden MANUAL DIFF REQ NO Normal [facility] Comment on above: Performed By: #### C BC #### [facility] [address] [place] [address] Dr. Hilda Harden MCH (RBC) [Entitic mass] 28.8 pg Normal 26.7-34.0 [facility] Comment on above: Performed By: #### C BC #### [facility] [address] [place] [address] Dr. Hilda Harden MCHC (RBC) [Mass/Vol] 34.0 g/dL Normal 29.9-35.2 [facility] Comment on above: Performed By: #### C BC #### [facility] [address] [place] [address] Dr. Hilda Harden MCV (RBC) [Entitic vol] 84.9 fL Normal 81.0-99.0 [facility] Comment on above: Performed By: #### C BC #### [facility] [address] [place] [address] Dr. Hilda Harden MONO # 0.4 103/ul Normal 0.3-0.8 [facility] Comment on above: Performed By: #### C BC #### [facility] [address] [place] [address] Dr. Hilda Harden Monocytes/100 WBC (Bld) 6.9 % Normal 1.7-12.0 [facility] Comment on above: Performed By: #### C BC #### [facility] [address] [place] [address] Dr. Hilda Harden NEUT # 3.0 103/ul Normal 1.4-6.5 [facility] Comment on above: Performed By: #### C BC #### [facility] [address] [place] [address] Dr. Hilda Harden Neutrophils/100 WBC (Bld) 49.8 % Normal 43.0-75.0 [facility] Comment on above: Performed By: #### C BC #### [facility] [address] [place] [address] Dr. Hilda Harden Platelet mean volume (Bld) [Entitic vol] 9.6 fL Normal 9.5-13.5 [facility] Comment on above: Performed By: #### C BC #### [facility] [address] [place] [address] Dr. Hilda Harden PLT 279 103/ul Normal 150-450 [facility] Comment on above: Performed By: #### C BC #### [facility] [address] [place] [address] Dr. Hilda Harden RBC 4.82 106/ul Normal 4.20-5.40 [facility] Comment on above: Performed By: #### C BC #### [facility] [address] [place] [address] Dr. Hilda Harden WBC 6.1 103/ul Normal 4.0-11.0 [facility] Comment on above: Performed By: #### C BC #### [facility] [address] [place] [address] Dr. Hilda Harden PREG QUANT HCGon 11-12-2022 HCG QUANT <1 Normal [facility] Comment on above: Performed By: #### C T/NGNA #### [facility] [address] [place] [address] Dr. Hilda Harden HCG RANGE SEE BELOW Normal [facility] Comment on above: Result Comment: 5-50 0.2-1 WEEK 50-500 1-2 WEEKS 100-5,000 2-3 WEEKS 500-10,000 3-4 WEEKS 1,000-50,000 4-5 WEEKS 10,000-100,000 5-6 WEEKS 15,000-200,000 6-8 WEEKS 10,000-100,000 2-3 MONTHS Performed By: #### C T/NGNA #### [facility] [address] [place] [address] Dr. Hilda Harden AFP (TUMOR MARKER)on 023 AFP, Serum, Tumor Marker 4.9 ng/mL Critically high 0.0-4. 7 [facility] Comment on above: Result Comment: [facility] [employer] Electrochemiluminescence Immunoassay (ECLIA) . Values obtained with different assay methods or kits cannot be used interchangeably. Results cannot be interpreted as absolute evidence of the presence or absence of malignant disease. . This test is not interpretable in females. Performed By: #### A FP. #### [facility] [address] [place] [address] Dr. Hilda Harden CA 125on 10-20-2022 Cancer Antigen (CA) 125 34.1 U/mL Normal 0.0-38.1 [facility] Comment on above: Result Comment: [employer] Electrochemiluminescence Immunoassay (ECLIA) . Values obtained with different assay methods or kits cannot be used interchangeably. Results cannot be interpreted as absolute evidence of the presence or absence of malignant disease. Performed By: #### C A 125 #### [facility] [address] [place] [address] Dr. Hilda Harden CEAon 10-20-2022 CEA 1.3 ng/mL Normal 0.0-4.7 [facility] Comment on above: Result Comment: Nons mokers <3.9 Smokers <5.6 . [facility] [facility] Electrochemiluminescence Immunoassay (ECLIA) . Values obtained with different assay methods or kits cannot be used interchangeably. Results cannot be interpreted as absolute evidence of the presence or absence of malignant disease. Performed By: #### C T/NGNA #### [facility] [address] [place] [address] Dr. Hilda Harden HCG QUANT TUMOR MARKERon 02- 01-2023 HCG QNT TUMOR MARKER <1 Normal [facility] Comment on above: Result Comment: [employer] [...] developed and its performance characteristics determined by [employer]. It has not been cleared or approved by the Food and Drug Administration for use as a tumor marker. . This test is not interpretable as a tumor marker in females. Performed By: #### H CGTMOR #### [facility] [address] [place], [place] [address] Dr. Hilda Harden LDHon 10-19-2022 LDH 140 U/L Normal 81-234 [facility] Comment on above: Performed By: #### L DH #### [facility] [address] [place], [place] [address] Dr. Hilda Harden US PELVIS AND TRANSVAGon [...] JOY CARDOZA Date: 2022-10-15 13:53 Normal [facility] DHEA SERUMon 10-10-2022 Dehydroepiandrosterone (DHEA) 640 ng/dL Critically high 40-491 [facility] Comment on above: Result [...] 701 Performed By: #### D EASTON. #### [facility] [address] [place] [address] [address] Hilda Harden DHEA-SULFATEon 10-07-2022 DHEA-Sulfate 201.0 ug/dL Normal 110.0-433. 2 [facility] Comment on above: Performed By: #### C T/NGNA #### [facility] [address] [address] [address] Hilda Harden FSHon 10-07-2022 FSH 4.1 mIU/mL Normal [facility] Comment on above: Result Comment: Adul t Female: Follicular phase 3.5 - 12.5 Ovulation phase 4.7 - 21.5 Luteal phase 1.7 - 7.7 Postmenopausal 25.8 - 134.8 Performed By: #### C T/NGNA #### [facility] [address] [address] [address] Hilda Harden LUTEINIZING HORMONE (LH)on 0 10-07-2022 LH 7.9 mIU/mL Normal [facility] Comment on above: Result Comment: Adul t Female: Follicular phase 2.4 - 12.6 Ovulation phase 14.0 - 95.6 Luteal phase 1.0 - 11.4 Postmenopausal 7.7 - 58.5 Performed By: #### C BC #### [facility] [address] [address] [address] Hilda Harden CBC AUTO DIFFon 10-06-2022 BASO # 0.0 103/ul Normal 0.0-0.1 [facility] Comment on above: Performed By: #### C BC #### [facility] [address] [address] [address] Hilda Harden Basophils/100 WBC (Bld) 0.3 % Normal 0.2-2.0 [facility] Comment on above: Performed By: #### C BC #### [facility] [address] [address] [address] Hilda Harden EO # 0.1 103/ul Normal 0.0-0.7 [facility] Comment on above: Performed By: #### C BC #### [facility] [address] [place] [address] Dr. Hilda Harden Eosinophils/100 WBC (Bld) 1.8 % Normal 0.9-7.0 [facility] Comment on above: Performed By: #### C BC #### [facility] [address] [address] [address] Hilda Harden Erythrocyte distribution width (RBC) [Ratio] 13.3 % Normal 11.0-15.0 [facility] Comment on above: Performed By: #### C BC #### [facility] [address] [place] [address] Dr. Hilda Harden Hematocrit (Bld) [Volume fraction] 39.9 % Normal 36.0-48.0 [facility] Comment on above: Performed By: #### C BC #### [facility] [address] [address] [address] Hilda Harden Hemoglobin (Bld) [Mass/Vol] 13.1 g/dL Normal 12.0-16.0 [facility] Comment on above: Performed By: #### C BC #### [facility] [address] [place] [address] Dr. Hilda Harden IG # 0.02 10e3/ul Normal 0.00-0.03 [facility] Comment on above: Performed By: #### C BC #### [facility] [address] [place] [address] Dr. Hilda Harden IG % 0.3 % Normal 0.0-0.5 [facility] Comment on above: Performed By: #### C BC #### [facility] [address] [place] [address] Dr. Hilda Harden LYMPH # 2.1 103/ul Normal 1.2-3.8 [facility] Comment on above: Performed By: #### C BC #### [facility] [address] [place] [address] Dr. Hilda Harden Lymphocytes/100 WBC (Bld) 31.8 % Normal 20.5-60.0 [facility] Comment on above: Performed By: #### C BC #### [facility] [address] [place] [address] Dr. Hilda Harden MANUAL DIFF REQ NO Normal [facility] Comment on above: Performed By: #### C BC #### [facility] [address] [place] [address] Dr. Hilda Harden MCH (RBC) [Entitic mass] 27.8 pg Normal 26.7-34.0 [facility] Comment on above: Performed By: #### C BC #### [facility] [address] [place] [address] Dr. Hilda Harden MCHC (RBC) [Mass/Vol] 32.8 g/dL Normal 29.9-35.2 [facility] Comment on above: Performed By: #### C BC #### [facility] [address] [place] [address] Dr. Hilda Harden MCV (RBC) [Entitic vol] 84.5 fL Normal 81.0-99.0 [facility] Comment on above: Performed By: #### C BC #### [facility] [address] [place] [address] Dr. Hilda Harden MONO # 0.5 103/ul Normal 0.3-0.8 [facility] Comment on above: Performed By: #### C BC #### [facility] [address] [place] [address] Dr. Hilda Harden Monocytes/100 WBC (Bld) 7.8 % Normal 1.7-12.0 [facility] Comment on above: Performed By: #### C BC #### [facility] [address] [place] [address] Dr. Hilda Harden NEUT # 3.8 103/ul Normal 1.4-6.5 [facility] Comment on above: Performed By: #### C BC #### [facility] [address] [place] [address] Dr. Hilda Harden Neutrophils/100 WBC (Bld) 58.0 % Normal 43.0-75.0 [facility] Comment on above: Performed By: #### C BC #### [facility] [address] [place] [address] Dr. Hilda Harden Platelet mean volume (Bld) [Entitic vol] 9.7 fL Normal 9.5-13.5 [facility] Comment on above: Performed By: #### C BC #### [facility] [address] [place] [address] Dr. Hilda Harden PLT 266 103/ul Normal 150-450 [facility] Comment on above: Performed By: #### C BC #### [facility] [address] [place] [address] Dr. Hilda Harden RBC 4.72 106/ul Normal 4.20-5.40 [facility] Comment on above: Performed By: #### C BC #### [facility] [address] [place] [address] Dr. Hilda Harden WBC 6.6 103/ul Normal 4.0-11.0 [facility] Comment on above: Performed By: #### C BC #### [facility] [address] [place] [address] Dr. Hilda Harden FREE T4on 10-06-2022 Free T4 [Mass/Vol] 1.09 ng/dL Normal 0.78-1.34 [facility] Comment on above: Performed By: #### C T/NGNA #### [facility] [address] [place] [address] Dr. Hilda Harden GLYCOHEMOGLOBIN A1Con 2022 ADA RECOMMENDATION SEE BELOW Normal [facility] Comment on above: Result Comment: ADA RECOMMENDED LIMIT 4.0 - 6.0 ADA THERAPEUTIC TARGET < 7.0 ACTION SUGGESTED > 7.0 Performed By: #### A 1C #### [facility] [address] [place] [address] Dr. Hilda Harden Glucose [Mass/Vol] 100 mg/dL Normal [facility] Comment on above: Performed By: #### A 1C #### [facility] [address] [place] [address] Dr. Hilda Harden HbA1c (Bld) [Mass fraction] 5.1 % Normal 4.5-6.2 [facility] Comment on above: Performed By: #### A 1C #### [facility] [address] [place] [address] Dr. Hilda Harden TSHon 10-06-2022 TSH 1.199 uIU/mL Normal 0.516-4.13 0 [facility] Comment on above: Performed By: #### T SH #### [facility] [address] [place] [address] Dr. Hilda Harden CHLAMYDIA/GONOCOCCUS RON (SW AB/URINE/PAPon 05-07-2022 Chlamydia trachomatis, RON Negative Normal Negative [facility] Comment on above: Performed By: #### C T/NGNA #### [facility] [address] [place] [address] Dr. Hilda Harden Neisseria gonorrhoeae, RON Negative Normal Negative [facility] Comment on above: Performed By: #### C T/NGNA #### [facility] [address] [place] [address] Dr. Hilda Harden VAGINITIS/VAGINOSIS DNA PROB Harinder 05-06-2022 Shannen species Negative Normal Negative [facility] Comment on above: Performed By: #### C BC #### [facility] [address] [place] [address] Dr. Hilda Harden Gardnerella vaginalis Positive Abnormal Negative [facility] Comment on above: Performed By: #### C BC #### [facility] [address] [place], [place] [address] Dr. Hilda Harden Trichomonas vaginalis Negative Normal Negative [facility] Comment on above: Performed By: #### C BC #### [facility] [address] [place], [place] [address] Dr. Hilda Harden Basophils Auto (Bld) [#/Vol] Ordered By: Severo Lea on 02-07-2022 Basophils (Bld) [#/Vol] 0.0 10*3/uL 0.0-0.1 [facility] Basophils/100 WBC Auto (Bld) Ordered By: Severo Lea on 02-07-2022 Basophils/100 WBC (Bld) 0.6 % [facility] Bilirubin Test strip Ql (U)O rdered By: Severo Lea on 02-07-2022 Bilirubin Ql (U) Negative Negative [facility] Blood hemoglobin measurement (mass/volume)Ordered By: Severo Lea on 02-07-2022 Hemoglobin (Bld) [Mass/Vol] 13.8 g/dL 12.0-16.0 [facility] Blood leukocytes automated c ount (number/volume)Ordered By: Severo Lea on 02-07-2022 WBC (Bld) [#/Vol] 8.5 10*3/uL 4.5-13.5 [facility] Body fluid albumin measureme nt (mass/volume)Ordered By: Severo Lea on 02-07-2022 Albumin (Body fld) [Mass/Vol] 4.2 g/dL 3.2-5.5 [facility] Color Auto (U)Ordered By: Maren Lea on 02-07-2022 Color (U) Yellow Yellow [facility] Creatinine and Glomerular fi ltration rate.predicted panel (S/P/Bld)Ordered By: Severo Lea on 02-07-2022 Creatinine [Mass/Vol] 0.82 mg/dL 0.44-1.03 [facility] Eosinophils Auto (Bld) [#/Vo l]Ordered By: Severo Lea on 02-07-2022 Eosinophils (Bld) [#/Vol] 0.1 10*3/uL 0.0-0.7 [facility] Eosinophils/100 WBC Auto (Bl d)Ordered By: Severo Lea on 02-07-2022 Eosinophils/100 WBC (Bld) 0.7 % [facility] Erythrocyte distribution wid th Auto (RBC) [Ratio]Ordered By: Severo Lea on 02-07-2022 Erythrocyte distribution width (RBC) [Ratio] 14.2 % 11.9-15.3 [facility] Estimated glomerular filtrat ion rate (GFR) non- AmericanOrdered By: Severo Lea on 02-07-2022 GFR/1.73 sq M.predicted among non-blacks MDRD (S/P/Bld) [Vol rate/Area] > 60 mL/Min [facility] Globulin Calc (S) [Mass/Vol] Ordered By: Severo Lea on 02-07-2022 Globulin (S) [Mass/Vol] 2.4 g/dL [facility] HCG ( test) IA.rapi d Ql (U)Ordered By: Severo Lea on 02-07-2022 HCG ( test) Ql (U) Negative [facility] Hematocrit Auto (Bld) [Volum e fraction]Ordered By: Severo Lea on 02-07-2022 Hematocrit (Bld) [Volume fraction] 41.5 % 36.0-46.0 [facility] Ketones Auto test strip (U) [Mass/Vol]Ordered By: Severo Lea on 02-07-2022 Ketones (U) [Mass/Vol] Trace Negative [facility] - Chemistry and C hemistry - challengeOrdered By: Severo Lea on 02-07-2022 Lipase [Catalytic activity/Vol] 53.0 U/L [facility] - Hematology and Cell countsOrdered By: Severo Lea on 02-07-2022 Nucleated RBC/100 WBC (Bld) [Ratio] 0.0 % 0-0.5 [facility] Lymphocytes Auto (Bld) [#/Vo l]Ordered By: Severo Lea on 02-07-2022 Lymphocytes (Bld) [#/Vol] 2.0 10*3/uL 1.20-4.8 [facility] Lymphocytes/100 WBC Auto (Bl d)Ordered By: Severo Lea on 02-07-2022 Lymphocytes/100 WBC (Bld) 23.8 % [facility] MCH Auto (RBC) [Entitic mass ]Ordered By: Severo Lea on 02-07-2022 MCH (RBC) [Entitic mass] 28.6 pg 25.0-35.0 [facility] MCHC Auto (RBC) [Mass/Vol]Or dered By: Severo Lea on 02-07-2022 MCHC (RBC) [Mass/Vol] 33.3 g/dL 31.0-37.0 [facility] MCV Auto (RBC) [Entitic vol] Ordered By: Severo Lea on 02-07-2022 MCV (RBC) [Entitic vol] 85.8 fL 78-102 [facility] Monocytes Auto (Bld) [#/Vol] Ordered By: Severo Lea on 02-07-2022 Monocytes (Bld) [#/Vol] 0.6 10*3/uL 0.1-1.00 [facility] Monocytes/100 WBC Auto (Bld) Ordered By: Severo Lea on 02-07-2022 Monocytes/100 WBC (Bld) 7.6 % [facility] Neutrophils Auto (Bld) [#/Vo l]Ordered By: Severo Lea on 02-07-2022 Neutrophils (Bld) [#/Vol] 5.7 10*3/uL 1.2-7.7 [facility] Neutrophils/100 WBC Auto (Bl d)Ordered By: Severo Lea on 02-07-2022 Neutrophils/100 WBC (Bld) 67.3 % [facility] Nitrite Test strip Ql (U)Ord ered By: Severo Lea on 02-07-2022 Nitrite Ql (U) Negative Negative [facility] No Panel InformationOrdered By: Severo Lea on 02-07-2022 Estimated GFR () > 60 mL/Min [facility] Comment on above: GFR estimated refere nce range: According to KDOQI guidelines, <60 ml/min/1.73m2 is sufficient to diagnose a patient with chronic kidney disease. Pharmacy Creatinine Clearance (Chem 100.48 [facility] Platelet mean volume Auto (B ld) [Entitic vol]Ordered By: Severo Lea on 02-07-2022 Platelet mean volume (Bld) [Entitic vol] 8.6 fL 6.3-10.7 [facility] Platelets Auto (Bld) [#/Vol] Ordered By: Severo Lea on 02-07-2022 Platelets (Bld) [#/Vol] 304 10*3/uL 150-450 [facility] Protein Auto test strip (U) [Mass/Vol]Ordered By: Severo Lea on 02-07-2022 Protein (U) [Mass/Vol] Negative Negative [facility] Protein [Mass/volume] in Ser um or PlasmaOrdered By: Severo Lea on 02-07-2022 Protein [Mass/Vol] 6.6 g/dL 6.1-7.9 [facility] RBC Auto (Bld) [#/Vol]Ordere d By: Severo Lea on 02-07-2022 RBC (Bld) [#/Vol] 4.84 10*6/uL 4.10-5.10 [facility] Serum or plasma alanine guerra otransferase measurement without P-5'-P (enzymatic activiOrdered By: Severo Lea on 02-07-2022 ALT No additional P-5'-P [Catalytic activity/Vol] 14 U/L 10-60 [facility] Serum or plasma albumin/glob ulin mass ratioOrdered By: Severo Lea on 02-07-2022 Albumin/Globulin [Mass ratio] 1.8 {ratio} [facility] Serum or plasma alkaline wil sphatase measurement (enzymatic activity/volume)Ordered By: Severo Lea on 02-07-2022 ALP [Catalytic activity/Vol] 46 U/L 32-92 [facility] Serum or plasma amylase jamar urement (enzymatic activity/volume)Ordered By: Severo Lea on 02-07-2022 Amylase [Catalytic activity/Vol] 70 U/L 28-100 [facility] Serum or plasma aspartate am inotransferase measurement (enzymatic activity/volume)Ordered By: Severo Lea on 02-07-2022 AST [Catalytic activity/Vol] 15 U/L 10-42 [facility] Serum or plasma calcium jamar urement (mass/volume)Ordered By: Severo Lea on 02-07-2022 Calcium [Mass/Vol] 9.3 mg/dL 8.2-10.2 [facility] Serum or plasma chloride payton surement (moles/volume)Ordered By: Severo Lae on 02-07-2022 Chloride [Moles/Vol] 107 mmol/L 95-114 [facility] Serum or plasma glucose jamar urement (mass/volume)Ordered By: Sevreo eLa on 02-07-2022 Glucose [Mass/Vol] 94 mg/dL 70-100 [facility] Comment on above: ADA recommended refe rence range Random Glucose Reference Range is dependent on time and content of last meal. Glucose of more than 200 mg/dL in a nonstressed, ambulatory subject supports the diagnosis of Diabetes Mellitus. Serum or plasma potassium me asurement (moles/volume)Ordered By: Severo Lea on 02-07-2022 Potassium [Moles/Vol] 4.2 mmol/L 3.5-5.1 [facility] Serum or plasma sodium measu rement (moles/volume)Ordered By: Severo Lea on 02-07-2022 Sodium [Moles/Vol] 140 mmol/L 136-146 [facility] Serum or plasma total biliru bin measurement (mass/volume)Ordered By: Severo Lea on 02-07-2022 Bilirubin [Mass/Vol] 0.5 mg/dL 0.3-1.2 [facility] Serum or plasma total carbon dioxide measurement (moles/volume)Ordered By: Severo Lea on 02-07-2022 CO2 [Moles/Vol] 25.1 mmol/L 22.0-30.0 [facility] Serum or plasma urea nitroge n measurement (mass/volume)Ordered By: Severo Lea on 02-07-2022 Urea nitrogen [Mass/Vol] 11 mg/dL 9- [facility] Specific gravity Auto test s trip (U) [Rel density]Ordered By: Severo Lea on 02-07-2022 Specific gravity (U) [Rel density] 1.027 1.001-1.03 0 [facility] Urine clarity by refractomet ry automatedOrdered By: Severo Lea on 02-07-2022 Clarity Refractometry automated (U) Clear Clear [facility] Urine glucose measurement by automated test strip (mass/volume)Ordered By: Severo Lea on 02-07-2022 Glucose Auto test strip (U) [Mass/Vol] Normal mg/dL Normal [facility] Urine hemoglobin detection b y automated test stripOrdered By: Severo Lea on 02-07-2022 Hemoglobin Auto test strip Ql (U) Negative Negative [facility] Urine leukocyte esterase det ection by automated test stripOrdered By: Severo Lea on 02-07-2022 Leukocyte esterase Auto test strip Ql (U) Negative Negative [facility] Urobilinogen Auto test strip (U) [Mass/Vol]Ordered By: Severo Lea on 02-07-2022 Urobilinogen (U) [Mass/Vol] Normal mg/dL Normal [facility] pH Auto test strip (U)Ordere d By: Severo Lea on 02-07-2022 pH (U) 6.0 [pH] 5.0-9.0 [facility] COVID-19 SOFIAOrdered By: Juve Morris on 11-16-2021 SARS-CoV+SARS-CoV-2 (COVID-19) Ag IA.rapid Ql (Resp) Negative Negative [facility] Comment on above: This is a duplicate Ann SARS Antigen (DEMETRIUS) result to be used for statistical tracking purpose only. No Panel InformationOrdered By: Augustin Morris on 11-16-2021 SARS Antigen (LFIA) [facility] Vital Signs Date Time Vital Sign Value Performing Clinician Facility 12-20-2024 10:02-0400 Body mass index (BMI) [Ratio] 25.3 kg/m2 [facility] Work Phone: [facility] 12-20-2024 10:02-040 Body weight 66.86 kg [facility] Work Phone: [facility] 12-20-2024 10:02-0400 Diastolic blood pressure 78 mm[Hg] [facility] Work Phone: [facility] 12-20-2024 10:02-0400 Systolic blood pressure 122 mm[Hg] [facility] Work Phone: [facility] 11-21-2024 13:12-0500 Body mass index (BMI) [Ratio] 26.33 kg/m2 Melia DODSON Work Phone: [facility] 11-21-2024 13:12-0500 Body weight 69.58 kg Melia Stacy PA Work Phone: [facility] 11-21-2024 13:12-0500 Diastolic blood pressure 80 mm[Hg] Melia Stacy PA Work Phone: [facility] 11-21-2024 13:12-0500 Systolic blood pressure 128 mm[Hg] Melia Stacy PA Work Phone: [facility] 10-29-2024 08:57-0500 Body height 162.56 cm Melia Warchol [employer] Work Phone: [facility] 10-29-2024 08:57-0500 Body mass index (BMI) [Ratio] 25.3 kg/m2 Melia Warchol [employer] Work Phone: [facility] 10-29-2024 08:57-0500 Body weight 67 kg Melia Warchol [employer] Work Phone: [facility] 10-22-2024 10:16-0500 Body mass index (BMI) [Ratio] 26.06 kg/m2 Melia Stacy PA Work Phone: [facility] 10-22-2024 10:16-0500 Body weight 68.86 kg Melia Stacy PA Work Phone: [facility] 10-22-2024 10:16-0500 Diastolic blood pressure 80 mm[Hg] Melia Stacy PA Work Phone: [facility] 10-22-2024 10:16-0500 Systolic blood pressure 110 mm[Hg] Melia [place] PA Work Phone: [facility] 10-17-2024 22:42-0500 Diastolic blood pressure 95 mm[Hg] Melia Warchol [employer] Work Phone: [facility] 10-17-2024 22:42-0500 Heart rate 85 /min Melia Warchol [employer] Work Phone: [facility] 10-17-2024 22:42-0500 Respiratory rate 20 /min Melia Warchol [employer] Work Phone: [facility] 10-17-2024 22:42-0500 SaO2% (BldA) [Mass fraction] 100 % Melia Warchol [employer] Work Phone: [facility] 10-17-2024 22:42-0500 Systolic blood pressure 138 mm[Hg] Melia Warchol [employer] Work Phone: [facility] 10-17-2024 19:50-0500 Body height 162.56 cm Melia Warchol [employer] Work Phone: [facility] 10-17-2024 19:50-0500 Body temperature 97.5 [degF] Melia Warchol [employer] Work Phone: [facility] 10-17-2024 19:50-0500 Body weight 67.7 kg Melia Warchol [employer] Work Phone: [facility] 09-03-2024 10:32-0500 Body height 162.6 cm Melia Warchol [employer] Work Phone: [facility] 09-03-2024 10:32-0500 Body mass index (BMI) [Ratio] 26.02 kg/m2 Melia Warchol [employer] Work Phone: [facility] 09-03-2024 10:32-0500 Body temperature 97.2 [degF] Melia Warchol [employer] Work Phone: [facility] 09-03-2024 10:32-0500 Body weight 68.77 kg Melia Warchol [employer] Work Phone: [facility] 09-03-2024 10:32-0500 Diastolic blood pressure 64 mm[Hg] Melia Warchol [employer] Work Phone: [facility] 09-03-2024 10:32-0500 Heart rate 87 /min Melia Warchol [employer] Work Phone: [facility] 09-03-2024 10:32-0500 SaO2% (BldA) [Mass fraction] 99 % Melia Warchol [employer] Work Phone: [facility] 09-03-2024 10:32-0500 Systolic blood pressure 118 mm[Hg] Melia Warchol [employer] ME[employer] Work Phone: [facility] 07-27-2024 10:31-0500 Body height 163.8 cm Melia Warchol [employer] Work Phone: [facility] 07-27-2024 10:31-0500 Body mass index (BMI) [Ratio] 25.05 kg/m2 Melia Warchol [employer] Work Phone: [facility] 07-27-2024 10:31-0500 Body weight 67.22 kg Melia Warchol [employer] Work Phone: [facility] 07-27-2024 10:31-0500 Diastolic blood pressure 80 mm[Hg] Melia Warchol [employer] Work Phone: [facility] 07-27-2024 10:31-0500 Heart rate 90 /min Melia Warchol [employer] Work Phone: [facility] 07-27-2024 10:31-0500 Respiratory rate 18 /min Melia Warchol [employer] Work Phone: [facility] 07-27-2024 10:31-0500 SaO2% (BldA) [Mass fraction] 98 % Melia Warchol [employer] Work Phone: [facility] 07-27-2024 10:31-0500 Systolic blood pressure 136 mm[Hg] Melia Warchol [employer] Work Phone: [facility] 06-18-2024 14:33-0400 Body height 163.8 cm Melia Warchol [employer] Work Phone: [facility] 06-18-2024 14:33-0400 Body mass index (BMI) [Ratio] 25.45 kg/m2 Melia Warchol [employer] ME[employer]IC Work Phone: [facility] 06-18-2024 14:33-0400 Body temperature 98.2 [degF] Melia Warchol [employer] Work Phone: [facility] 06-18-2024 14:33-0400 Body weight 68.31 kg Melia Warchol [employer] Work Phone: [facility] 06-18-2024 14:33-0400 Diastolic blood pressure 80 mm[Hg] Melia Warchol [employer] Work Phone: [facility] 06-18-2024 14:33-0400 Heart rate 87 /min Melia Warchol [employer] Work Phone: [facility] 06-18-2024 14:33-0400 Respiratory rate 18 /min Melia Warchol [employer] Work Phone: [facility] 06-18-2024 14:33-0400 SaO2% (BldA) [Mass fraction] 100 % Melia Warchol [employer] Work Phone: [facility] 06-18-2024 14:33-0400 Systolic blood pressure 138 mm[Hg] Melia Warchol [employer] Work Phone: [facility] 02-07-2022 20:47-0400 Body height 161.29 cm MD Joe Rosenberg Work Phone: [facility] 02-07-2022 20:47-0400 Body mass index (BMI) [Percentile] Per age and sex 79.7 % MD Joe Rosenberg Work Phone: [facility] 02-07-2022 20:47-0400 Body mass index (BMI) [Ratio] 24.7 kg/m2 MD Joe Rosenberg Work Phone: [facility] 02-07-2022 20:47-0400 Body weight 64.41 kg MD Joe Rosenberg Work Phone: [facility] 02-07-2022 20:46-0400 Body temperature 98.6 [degF] MD Joe Rosenberg Work Phone: [facility] 02-07-2022 20:46-0400 Diastolic blood pressure 84 mm[Hg] MD Joe Rosenberg Work Phone: [facility] 02-07-2022 20:46-0400 Heart rate 95 /min MD Joe Rosenberg Work Phone: [facility] 02-07-2022 20:46-0400 Respiratory rate 18 /min MD Joe Rosenberg Work Phone: [facility] 02-07-2022 20:46-0400 SaO2% (BldA) [Mass fraction] 100 % MD Joe Rosenberg Work Phone: [facility] 02-07-2022 20:46-0400 Systolic blood pressure 138 mm[Hg] MD Joe Rosenberg Work Phone: [facility] Encounters Encounter Date Encounter Type Care Provider Facility Start: 12-20-2024 End: 12-20-2024 Bamboo flowsheet Curtis Sandra DO Work Phone: [facility] Start: 12-20-2024 End: 12-20-2024 Bamboo flowsheet Curtis Sandra DO Work Phone: [facility] Start: 12-20-2024 End: 12-20-2024 Clinisync Result Encounter Curtis Sandra DO Work Phone: [facility] Unsolicited Start: 12-20-2024 End: 12-20-2024 ambulatory CURTIS SANDRA Not Available Start: 12-20-2024 End: 12-20-2024 Office outpatient visit 15 minutes Curtis Sandra DO Work Phone: [facility] Comment on above: Encounter to discuss test results; Complex ovarian cyst Start: 12-18-2024 End: 12-18-2024 Clinisync Result Encounter Melia DODSON Work Phone: [facility] Unsolicited Start: 12-18-2024 End: 12-18-2024 Clinisync Result Encounter Melia DODSON Work Phone: [facility] Unsolicited Start: 12-12-2024 End: 12-12-2024 Patient encounter procedure Melia Mantilla CANAL EQUIPMENT MECHANIC-C Work Phone: [facility] [address] Closed Work Phone: Start: 12-12-2024 End: 12-12-2024 ambulatory Melia Mantilla CANAL EQUIPMENT MECHANIC-C Work Phone: [facility] Work Phone: Start: 11-22-2024 End: 11-22-2024 Telephone encounter Melia Mantilla CANAL EQUIPMENT MECHANIC Work Phone: [facility] Start: 11-21-2024 End: 11-21-2024 Bamboo flowsheet Melia DODSON Work Phone: [facility] Start: 11-21-2024 End: 11-21-2024 Bamboo flowsheet Melia Potter PA Work Phone: [facility] Start: 11-21-2024 End: 11-21-2024 Patient encounter procedure Melia DODSON Work Phone: [facility] Start: 11-21-2024 End: 11-21-2024 Periodic preventive med est patient 18-39 yrs Melia DODSON Work Phone: [facility] Comment on above: Well woman exam with routine gynecological exam; Complex ovarian cyst; Nausea; Encounter for initial prescription of contraceptive pills Start: 11-21-2024 End: 11-21-2024 ambulatory MELIA POTTER Not Available Start: 11-20-2024 End: 11-20-2024 Patient encounter procedure Melia Costapillo CANAL EQUIPMENT MECHANIC-C Work Phone: [facility] [place] Work Phone: Start: 11-20-2024 End: 11-20-2024 ambulatory Melia Igorchol CANAL EQUIPMENT MECHANIC-C Work Phone: [facility] Work Phone: Start: 11-09-2024 End: 11-12-2024 Telephone encounter Melia Hernán CANAL EQUIPMENT MECHANIC Work Phone: [facility] Start: 11-06-2024 End: 11-06-2024 ambulatory MELIA POTTER Not Available Start: 10-29-2024 End: 10-29-2024 Patient encounter procedure Emlia Hernán CANAL EQUIPMENT MECHANIC-C Work Phone: [facility] Work Phone: Start: 10-22-2024 End: 10-22-2024 Office outpatient visit 15 minutes Melia Stacy PA Work Phone: [facility] Comment on above: Abdominal cramping; Cyst of left ovary Start: 10-22-2024 End: 10-22-2024 ambulatory MELIA POTTER Not Available Start: 10-17-2024 End: 10-18-2024 Emergency department patient visit Melia Mantilla CANAL EQUIPMENT MECHANIC-C Work Phone: [facility] Work Phone: Start: 10-15-2024 End: 10-15-2024 Telephone encounter Melia Costachol CANAL EQUIPMENT MECHANIC Work Phone: [facility] Start: 09-24-2024 End: 09-24-2024 Telephone encounter Melia Costachol CANAL EQUIPMENT MECHANIC Work Phone: [facility] Start: 09-03-2024 End: 09-03-2024 Bamboo flowsheet Melia Igorchol CANAL EQUIPMENT MECHANIC Work Phone: [facility] Start: 09-03-2024 End: 09-03-2024 Bamboo flowsheet Melia Warchol CANAL EQUIPMENT MECHANIC Work Phone: [facility] Start: 09-03-2024 End: 09-03-2024 ambulatory MELIA MANTILLA Not Available Start: 09-03-2024 End: 09-03-2024 Office outpatient visit 25 minutes Melia Mantilla CANAL EQUIPMENT MECHANIC Work Phone: [facility] Comment on above: Chronic midline low back pain without sciatica (Primary Dx); Lumbar radiculopathy Start: 08-28-2024 End: 08-28-2024 Telephone encounter Melia Costachol CANAL EQUIPMENT MECHANIC Work Phone: [facility] Start: 08-23-2024 End: 08-23-2024 ambulatory Melia Costachol CANAL EQUIPMENT MECHANIC-C Work Phone: [facility] Work Phone: Start: 08-23-2024 End: 08-23-2024 Discharged Recurring Melia Igorchol CANAL EQUIPMENT MECHANIC-C Work Phone: [facility] [facility] Start: 07-27-2024 End: 07-27-2024 Bamboo flowsheet Melia Mantilla CANAL EQUIPMENT MECHANIC Work Phone: [facility] Start: 07-27-2024 End: 07-27-2024 Bamboo flowsheet Melia Mantilla CANAL EQUIPMENT MECHANIC Work Phone: [facility] Start: 07-27-2024 End: 07-27-2024 ambulatory MELIA MANTILLA Not Available Start: 07-27-2024 End: 07-27-2024 Office outpatient visit 25 minutes Melia Mantilla CANAL EQUIPMENT MECHANIC Work Phone: [facility] Comment on above: 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); Person consulting for explanation of examination or test finding; Bilateral sacroiliitis (CMS/HCC) Start: 07-25-2024 End: 07-25-2024 Patient encounter procedure CANAL EQUIPMENT MECHANIC-C Melia Mantilla Work Phone: [facility] Work Phone: Start: 07-25-2024 End: 07-25-2024 ambulatory CANAL EQUIPMENT MECHANIC-C Melia Mantilla Work Phone: [facility] Work Phone: Start: 07-25-2024 Encounter for genera l adult medical examination without abnormal findings Melia Mantilla [facility] Start: 06-18-2024 End: 06-18-2024 Office outpatient visit 25 minutes Melia Mantilla CANAL EQUIPMENT MECHANIC Work Phone: [facility] Comment on above: Adult general medica l examination (Primary Dx); Muscle cramping; Bilateral sacroiliitis (CMS/HCC); Left lumbar radiculopathy; 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-sided sciatica Start: 06-18-2024 End: 06-18-2024 Patient encounter status Melia Mantilla CANAL EQUIPMENT MECHANIC Work Phone: [facility] Start: 06-18-2024 End: 06-18-2024 ambulatory MELIA MANTILLA Not Available Start: 06-18-2024 End: 06-18-2024 Bamboo flowsheet Melia Mantilla CANAL EQUIPMENT MECHANIC Work Phone: [facility] Start: 06-18-2024 End: 06-18-2024 Bamboo flowsheet Melia Warchol CANAL EQUIPMENT MECHANIC Work Phone: [facility] Start: 11-04-2023 End: 11-04-2023 ambulatory MD Joe Rosenberg Work Phone: [facility] Work Phone: Start: 11-04-2023 End: 11-04-2023 Departed Referred MD Joe Rosenberg Work Phone: [facility] Start: 11-03-2023 Clinisync Result Encounter Curtis Sandra DO Work Phone: [facility] Unsolicited Start: 11-03-2023 Clinisync Result Encounter Curtis Flores DO Work Phone: [facility] Unsolicited Start: 01-10-2023 End: 01-11-[address] JOE ROSENBERG . Facility:[facility] Start: 11-12-2022 End: 11-12-[address] CURTIS FLORES . Facility:[facility] Start: 11-05-2022 Encounter for other preprocedural examination DR CURTIS FLORES . [facility] Start: 11-01-2022 End: 11-02-[address] CURTIS [...] patient visit MD Joe Rosenberg Work Phone: [facility] Start: 11-16-2021 End: 11-16-2021 Patient encounter procedure MD Joe Rosenberg Work Phone: [facility] Procedures Date Procedure Procedure Detail Performing Clinician Start: 12-20-2024 [facility] Curtis Fazi o DO Work Phone: Start: 12-18-2024 US PELVIS W/ TRANSVAGINAL Melia DODSON Work Phone: Start: 12-12-2024 MR lumbar spine wo con Melia Mantilla CANAL EQUIPMENT MECHANIC-C Work Phone: Start: 11-20-2024 Carcinoembryonic antigen cea Melia Mantilla Comment on above: Result Comment: Seri al tumor marker results determined by assays using different manufacturers or methods may not be comparable. [facility] data migration consultant and method: i-marker DXI, 2 SITE IMMUNOENZYMATIC ?SANDWICH? ASSAY. PERFORMED BY: [place] [address] PATHOLOGIST CONSUMER LENDING MANAGER CORNELIUS MARK M.D. Performed By: #### C EA, HCGQNT #### [address] #### AFPTM, CA125, LDI #### [facility] , Start: 10-22-2024 Urine test visual color cmprsn meths Melia DODSON Work Phone: Start: 07-25-2024 Plain X-ray of sacro iliac joint CANAL EQUIPMENT MECHANIC-C Melia Mantilla Work Phone: Start: 07-25-2024 X-ray of lumbar spin e, two or three views CANAL EQUIPMENT MECHANIC-C Melia Mantilla Work Phone: Start: 11-03-2023 [facility] Curtis Fazi o DO Work Phone: Start: 11-16-2021 SARS Antigen (LFIA) MD Joe Rosenberg Work Phone: Plan of Treatment Date Care Activity Detail Author Start: 05-20-2025 Influenza vaccination Influenz a Vaccine (Season Ended) [facility] Start: 02-05-2025 End: 02-05-2025 Professional / ancillary services management 02/05/2025 1:00 PM EDT Ancillary Procedure [facility] [address] [place] [address] [facility] Start: 01-15-2025 End: 01-15-2025 Patient encounter procedure 01/15/2025 2:40 PM EDT Office Visit [facility] [address] [place] [address] Curtis Flores, DO [address] [place] [address] [address] [place], [place] [id number] [facility] Start: 12-25-2024 Influenza vaccination Influenza Vacc ine (#1) [facility] Comment on above: Postponed from 05/20 (Patient Refused) Start: 12-20-2024 End: 12-20-2025 AFP tumor marker AFP tumor marker Lab Routine Complex ovarian cyst Expected: 12/20/2024, Expires: 12/20/2025 [facility] Comment on above: Expected: 12/20/2024 , Expires: 12/20/2025 Start: 12-20-2024 End: 12-20-2025 CA 125 CA 125 Lab Routine Complex ovarian cyst Expected: 12/20/2024, Expires: 12/20/2025 [facility] Comment on above: Expected: 12/20/2024 , Expires: 12/20/2025 Start: 12-20-2024 End: 12-20-2025 Carcinoembryonic Ag [Mass/volume] in Serum or Plasma CEA Lab Routine Complex ovarian cyst Expected: 12/20/2024, Expires: 12/20/2025 [facility] Comment on above: Expected: 12/20/2024 , Expires: 12/20/2025 Start: 12-20-2024 End: 12-20-2025 HCG, tumor marker HCG, tumor marker Lab Routine Complex ovarian cyst Expected: 12/20/2024 (Approximate), Expires: 12/20/2025 [facility] Comment on above: Expected: 12/20/2024 (Approximate), Expires: 12/20/2025 Start: 12-20-2024 End: 12-20-2025 Lactate dehydrogenase, isoenzymes Lactate dehydrogenase, isoenzymes Lab Routine Complex ovarian cyst Expected: 12/20/2024, Expires: 12/20/2025 [facility] Work Phone: Comment on above: Expected: 12/20/2024 , Expires: 12/20/2025 Start: 12-20-2024 End: 12-20-2025 US Pelvis US Pelvis w/ TV Imaging Routine Complex ovarian cyst Expected: 12/20/2024, Expires: 12/20/2025 [facility] Comment on above: Expected: 12/20/2024 , Expires: 12/20/2025 Start: 12-20-2024 End: 12-20-2024 Patient encounter procedure 12/20/2024 9:40 AM EDT Office Visit [facility] [address] [place] [phone] Curtis Flores, [address] [place] [address] [facility] Start: 12-18-2024 End: 12-18-2024 Professional / ancillary services management 12/18/2024 8:00 AM EDT Ancillary Procedure [facility] [address] [place] [id number] [facility] Start: 11-21-2024 End: 11-21-2025 US Pelvis US Pelvis w/ TV Imaging Routine Complex ovarian cyst Expected: 11/21/2024, Expires: 11/21/2025 [facility] Comment on above: Expected: 11/21/2024 , Expires: 11/21/2025 Start: 11-21-2024 End: 11-21-2024 Patient encounter procedure [facility] Comment on above: Arrived Start: 11-20-2024 [facility] Start: 11-12-2024 End: 11-12-2025 MR Lumbar spine WO contrast MR lumbar spine wo contrast Imaging Routine 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-sided sciatica Left lumbar radiculopathy Expected: 11/12/2024, Expires: 11/12/2025 [facility] Work Phone: Comment on above: Expected: 11/12/2024 , Expires: 11/12/2025 Start: 11-06-2024 End: 11-06-2024 Professional / ancillary services management 11/06/2024 1:00 PM EST Ancillary Procedure [facility] [address] [place] [id number] [facility] Start: 10-22-2024 End: 10-22-2025 US Pelvis US Pelvis w/ TV Imaging Routine Abdominal cramping Cyst of left ovary Expected: 10/22/2024, Expires: 10/22/2025 [facility] Work Phone: Comment on above: Expected: 10/22/2024 , Expires: 10/22/2025 Start: 09-21-2024 Influenza vaccination Influenza Vacc ine (#1) [facility] Comment on above: Postponed from 05/20 (Patient Refused) Start: 09-03-2024 End: 09-03-2024 Patient encounter procedure 09/03/2024 10:20 AM EST Office Visit [facility] [address] [place] [address] Melia Mantilla NP [address] [place] [address] [facility] Start: 07-02-2024 End: 07-02-2024 Patient encounter procedure 07/02/2024 2:40 PM EDT Office Visit [facility] [address] [place] [address] Melia Mantilla NP [address] [place] [address] [facility] Start: 06-18-2024 End: 06-18-2024 Patient encounter procedure 06/18/2024 2:20 PM EDT Office Visit [facility] [address] [place] [phone] Melia Mantilla, CANAL EQUIPMENT MECHANIC [address] [place] [address] Arrived [facility] Comment on above: Arrived Start: 05-20-2024 Influenza vaccination Influenza Vacc ine (#1) [facility] CBC W Auto Different ial panel - Blood CBC auto differential Lab Routine Adult general medical examination Ordered: 06/18/2024 [facility] Comment on above: Ordered: 06/18/2024 Comprehensive metabo lic 2000 panel - Serum or Plasma Comprehensive metabolic panel Lab Routine Adult general medical examination Ordered: 06/18/2024 [facility] Comment on above: Ordered: 06/18/2024 Cytology Cervical or vaginal smear or scraping study Pap Smear Pathology and Cytology Routine Well woman exam with routine gynecological exam Ordered: 11/21/2024 [facility] Work Phone: Comment on above: Ordered: 11/21/2024 Magnesium [Mass/volu me] in Serum or Plasma Magnesium Lab Routine Muscle cramping Ordered: 06/18/2024 [facility] Comment on above: Ordered: 06/18/2024 MR Lumbar spine WO contrast MR lumbar spine wo contrast Imaging Routine Chronic midline low back pain without sciatica Lumbar radiculopathy Ordered: 09/03/2024 [facility] Work Phone: Comment on above: Ordered: 09/03/2024 Patient Education [facility] Work Phone: Patient referral [facility] Work Phone: XR Lumbar spine 2 or 3 Views XR lumbar spine 2 or 3 views Imaging Routine Left lumbar radiculopathy 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-sided sciatica Ordered: 06/18/2024 [facility] Work Phone: Comment on above: Ordered: 06/18/2024 XR Sacroiliac Joint 3 Views XR sacroiliac joints 3+ views Imaging Routine Left lumbar radiculopathy 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-sided sciatica Ordered: 06/18/2024 [facility] Comment on above: Ordered: 06/18/2024 Immunizations Immunization Date Immunization Notes Care Provider Fa cility 06-22-2021 meningococcal oligosaccharide (groups A, C, Y and W-135) diphtheria toxoid conjugate vaccine (MCV4O) [facility] CANAL EQUIPMENT MECHANIC Work Phone: [facility] 05-04-2016 meningococcal polysaccharide (groups A, C, Y and W-135) diphtheria toxoid conjugate vaccine (MCV4P) Melia Mantilla CANAL EQUIPMENT MECHANIC Work Phone: [facility] 05-04-2016 tetanus toxoid, redu jimenez diphtheria toxoid, and acellular pertussis vaccine, adsorbed [facility] CANAL EQUIPMENT MECHANIC Work Phone: [facility] 03-06-2009 diphtheria, tetanus toxoids and acellular pertussis vaccine, unspecified formulation Melia Mantilla CANAL EQUIPMENT MECHANIC Work Phone: [facility] 03-06-2009 hepatitis A vaccine, pediatric/adolescent dosage, 2 dose schedule [facility] CANAL EQUIPMENT MECHANIC Work Phone: [facility] 03-06-2009 measles, mumps and r ubella virus vaccine [facility] CANAL EQUIPMENT MECHANIC Work Phone: [facility] 03-06-2009 poliovirus vaccine, inactivated [facility] CANAL EQUIPMENT MECHANIC Work Phone: [facility] 03-06-2009 varicella virus vaccine [facility] CANAL EQUIPMENT MECHANIC Work Phone: [facility] 01-06-2007 diphtheria, tetanus toxoids and acellular pertussis vaccine, unspecified formulation [facility] CANAL EQUIPMENT MECHANIC Work Phone: [facility] 01-06-2007 haemophilus influenz ae type b vaccine, PRP-T conjugate [facility] CANAL EQUIPMENT MECHANIC Work Phone: [facility] 01-06-2007 hepatitis A vaccine, pediatric/adolescent dosage, 2 dose schedule [facility] CANAL EQUIPMENT MECHANIC Work Phone: [facility] 01-06-2007 measles, mumps, rube lla, and varicella virus vaccine [facility] CANAL EQUIPMENT MECHANIC Work Phone: [facility] 01-06-2007 pneumococcal conjuga te vaccine, 7 valent [facility] CANAL EQUIPMENT MECHANIC Work Phone: [facility] 05-22-2004 diphtheria, tetanus toxoids and acellular pertussis vaccine, unspecified formulation [facility] CANAL EQUIPMENT MECHANIC Work Phone: [facility] 05-22-2004 haemophilus influenz ae type b vaccine, PRP-T conjugate Melia Warchol CANAL EQUIPMENT MECHANIC Work Phone: [facility] 05-22-2004 hepatitis B vaccine, pediatric or pediatric/adolescent dosage Melia Warchol CANAL EQUIPMENT MECHANIC Work Phone: [facility] 05-22-2004 pneumococcal conjuga te vaccine, 7 valent Melia Warchol CANAL EQUIPMENT MECHANIC Work Phone: [facility] 05-22-2004 poliovirus vaccine, inactivated Melia Warchol CANAL EQUIPMENT MECHANIC Work Phone: [facility] 03-05-2004 diphtheria, tetanus toxoids and acellular pertussis vaccine, unspecified formulation Melia Warchol CANAL EQUIPMENT MECHANIC Work Phone: [facility] 03-05-2004 haemophilus influenz ae type b vaccine, PRP-T conjugate Melia Warchol CANAL EQUIPMENT MECHANIC Work Phone: [facility] 03-05-2004 hepatitis B vaccine, pediatric or pediatric/adolescent dosage Melia Warchol CANAL EQUIPMENT MECHANIC Work Phone: [facility] 03-05-2004 pneumococcal conjuga te vaccine, 7 valent Melia Warchol CANAL EQUIPMENT MECHANIC Work Phone: [facility] 03-05-2004 poliovirus vaccine, inactivated Melia Warchol CANAL EQUIPMENT MECHANIC Work Phone: [facility] 2003 diphtheria, tetanus toxoids and acellular pertussis vaccine, unspecified formulation Melia Warchol CANAL EQUIPMENT MECHANIC Work Phone: [facility] 2003 haemophilus influenz ae type b vaccine, PRP-T conjugate Melia Warchol CANAL EQUIPMENT MECHANIC Work Phone: [facility] 2003 hepatitis B vaccine, pediatric or pediatric/adolescent dosage Melia Warchol CANAL EQUIPMENT MECHANIC Work Phone: [facility] 2003 poliovirus vaccine, inactivated Melia Warchol CANAL EQUIPMENT MECHANIC Work Phone: [facility] Payers Date Payer Category Payer Self-pay [id number] 2024 Medicaid (Managed Care) [employer] Member Subscriber Plan / Payer (Effective 2024-Present) Name: Berenice Lopez Relation to Subscriber: Self Name: Berenice Lopez Payer ID: Not on file Group ID: Not on file Type: Not on file Address: [place] [id number] 2023 Medicaid [id number] 2003 Unknown [id number] 2.16.840.1.155518.3.579.2. 593 2003 Unknown [id number] 2.16.840.1.558336.3.579.2. 593 2003 Unknown [id number] 2.16.840.1.522622.3.579.2. 593 2003 Unknown [id number] 2.16.840.1.171437.3.579.2. 593 2003 Unknown [id number] 2.16.840.1.270453.3.579.2. 593 2003 Unknown [id number] 2.16.840.1.568185.3.579.2. 593 2003 Unknown [id number] 2.16.840.1.813157.3.579.2. 593 2003 Unknown [id number] 2.16.840.1.924213.3.579.2. 1259 2003 Unknown [id number] 2.16.840.1.067209.3.579.2. 1259 2003 Unknown [id number] 2.16.840.1.298836.3.579.2. 1259 2003 Unknown [id number] 2.16.840.1.618878.3.579.2. 1259 2003 Unknown [id number] 2.16.840.1.340693.3.579.2. 1259 2003 Unknown [id number] 2.16.840.1.620786.3.579.2. 1259 2003 Unknown [id number] 2.16.840.1.511621.3.579.2. 1259 1959 Medicaid [id number] Unknown [id number] 2.16.840.1.215571.3.579.2. 531 Unknown [id number] 2.16.840.1.691496.3.579.2. 531 Unknown [id number] 2.16.840.1.579136.3.579.2. 531 Unknown [id number] 2.16.840.1.857811.3.579.2. 531 Unknown [id number] 2.16.840.1.469337.3.579.2. 531 Social History Date Type Detail Facility Start: 02-07-2022 End: 10-04-2023 Tobacco smoking status NHIS Never smoked tobacco (finding) [facility] Start: 2003 Sex Assigned At Female F [facility] Start: 10-04-2023 Tobacco use and exposure Smoke less tobacco non-user [facility] Start: 10-19-2023 End: 12-20-2024 Alcohol intake Lifetime non-drinker (finding) [facility] [...] to any clubs or organizations such as sikhism groups, unions, fraternal or athletic groups, or [...] Start: 10-16-2024 End: 12-13-2024 Sex Female (finding) [facility] Start: 10-17-2024 End: 10-17-2024 Tobacco smoking status NHIS Smoker (finding) [facility] NEGATED: Highlighted row [facility] Clinical Notes 11-12-2022 to 12-20-2024 Diandra Irizarry LPN - 12/20/2024 9:40 AM EDTTelephone Encounter - Melia Mantilla NP - 11/22/2024 2:58 PM ESTTelephone Encounter - Melia Mantilla NP - 11/22/2024 2:58 PM EST Note Date & Type Note Facility 12-20-2024 History of Presen t illness Narrative Reason for Appointment: Patient ID: Berenice Lopez is a 19 y.o. female who presents for Results Patient presents today for Follow up appointment to discuss results. MEDICATIONS Current Outpatient Medications Medication Instructions amoxicillin (Amoxil) 500 MG capsule TAKE 1 CAPSULE BY MOUTH EVERY 8 HOURS UNTIL GONE gabapentin (NEURONTIN) 600 mg, Oral, 3 times daily norgestimate-ethinyl estradiol (Sprintec 28) 0.25-35 MG-MCG tablet 1 tablet, Oral, Daily, Take 1 tablet by mouth daily ondansetron ODT (ZOFRAN-ODT) 4 mg, Oral, Every 6 hours PRN ALLERGIES No Known Allergies PROBLEMS Active Ambulatory [...] ASPIRATION / LYSIS 11/04/2023 OTHER SURGICAL HISTORY 2008 dental work REVIEW OF SYSTEMS Review of Systems: Review of Systems All other systems reviewed and are negative. OBJECTIVE Objective: Physical Exam Constitutional: Appearance: Normal appearance. She is well-developed. Cardiovascular: Rate and Rhythm: Normal rate and regular rhythm. Pulmonary: Effort: Pulmonary effort is normal. Breath sounds: Normal breath sounds. Abdominal: General: Bowel sounds are normal. There is no distension. Palpations: Abdomen is soft. Tenderness: There is no abdominal tenderness. There is no guarding or rebound. Musculoskeletal: General: No swelling. Normal range of motion. Right lower leg: No edema. Left lower leg: No edema. Neurological: Mental Status: She is alert and oriented to person, place, and time. Skin: General: Skin is warm and dry. Psychiatric: Mood and Affect: Mood normal. Behavior: Behavior normal. Vitals and nursing note reviewed. Exam conducted with a junior high math teacher present. Vitals: Estimated body mass index is 25.3 kg/m as calculated from the following: Height as of 09/03/24: 5' 4 . Weight as of this encounter: 147 lb 6.4 oz. BP: 122/78 No LMP recorded. ASSESSMENT & PLAN ICD-10-CM 1. Encounter to discuss test results Z71.2 2. Complex ovarian cyst N83.299 Lactate dehydrogenase, isoenzymes CEA HCG, tumor marker CA 125 AFP tumor marker US Pelvis w/ TV Lactate dehydrogenase, isoenzymes CEA HCG, tumor marker CA 125 AFP tumor marker Patient and mother present to office for follow up ultrasound and to discuss next steps. Reviewed ultrasound with patient and advised patient to have tumor markers drawn and to repeat ultrasound in 6 weeks. Discussed with patient possibility of have surgical management via Diagnostic Lap with chromopertubation. Also, discussed possible HSG in the future as well. Patient verbalized understanding and will schedule ultrasound prior to leaving office today. Patient to return to clinic as needed and is able to reach out for lab results. Documented by Diandra Irizarry LPN on behalf of: Curtis Flores DO documented in this encounter [facility] 11-22-2024 Telephone encounter Note Form atting of this note might be different from the original. Sent [facility] 11-22-2024 Miscellaneous Notes Formattin g of this note might be different from the original. Sent documented in this encounter [facility] 11-21-2024 History of Presen t illness Narrative Reason for Appointment: Patient ID: Berenice Lopez is a 19 y.o. female who presents [...] nursing note reviewed. Exam conducted with a junior high math teacher present. Vitals: Estimated body mass index is [...] advised we could do diagnostic testing with And will have surgery coordinator discuss with patient. We will repeat ultrasound in 6 weeks. Will have patient schedule appointment with DR Flores to discuss plan. We also discussed starting metformin in the future Follow Up: Patient is to return in one year for annual unless needed otherwise. Documented by Bebe Nowak LPN on behalf of: IVORY Wills documented in this encounter [facility] 11-12-2024 Telephone encounter Note Form atting of this note might be different from the original. New order sent [facility] 11-12-2024 Miscellaneous Notes Formattin g of this note might be different from the original. New order sent Insurance denied MRI due to them wanting PT done first, patient completed PT as of 10/16/24 & Dr go office is wanting us to appeal the MRI we ordered- MRI for Lumbar documented in this encounter [facility] 11-09-2024 Telephone encounter Note Form atting of this note might be different from the original. Insurance denied MRI due to them wanting PT done first, patient completed PT as of 10/16/24 & Dr go office is wanting us to appeal the MRI we ordered- MRI for Lumbar [facility] 10-29-2024 Evaluation note Diagnosis Onset Date Resolution Chronic pain acute October 8:56am Other low back pain acute Febru boaz2024 8:56am Other spondylosis with radiculopathy, lumbosacral region acute October 8:56am [facility] Work Phone: 1(604) 835-423202-03-2025 History of Present illness Narrative* IVORY Wills - 10/22/2024 10:00 AM EST Reason for Appointment: Patient ID: Berenice Lopez is a 19 y.o. female who presents [...] behalf of: IVORY Wills documented in this [facility]01-27-2025 Telephone encounter Note* Telephone Encounter - Melia Mantilla NP - 10/15/2024 1:29 PM EST MRI was denied. Patient states she is still having terrible pain in her back that seems to be worsening. Discussed pain management referral [facility] [id number] Miscellaneous Notes* Telephone Encounter - Melia Mantilla NP - 10/15/2024 1:29 PM EST MRI was denied. Patient states she is still having terrible pain in her back that seems to be worsening. Discussed pain management referral documented in this [facility]01-06-2025 Telephone encounter Note* Telephone Encounter - Melia Mantilla NP - 09/24/2024 5:41 PM EST [id number] Miscellaneous Notes* Telephone Encounter - Melia Mantilla NP - 09/24/2024 5:41 PM EST Sent documented in this [facility]12-16-2024 History of Present illness Narrative* Melia Mantilla NP - 09/03/2024 10:20 AM EST SUBJECTIVE Berenice Lopez is a 18 y.o. female who presents [...] decreased her pain from 10/10 to 7/10. Shecurrently complaints of lumbar midline pain with [...] scheduled follow-up review MRI. documented in [facility] [id number] Instructions* Patient Instructions* Melia Mantilla NP - [...] use of controlled substances. documented in this encounterMiss[facility] [id number] Telephone encounter Note* Telephone Encounter - Melia Mantilla NP - 08/28/2024 12:57 PM EST sent [facility] [id number] Miscellaneous Notes* Telephone Encounter - Melia Mantilla NP - 08/28/2024 12:57 PM EST sent documented in this encounterMiss[facility] [id number] History of Present illness Narrative* Melia Mantilla NP - 07/27/2024 10:20 AM EST SUBJECTIVE Berenice Lopez is a 18 y.o. female who presents [...] follow-up: back pain . documented in this [facility]11-08-2024 Instructions* Patient Instructions* Melia Mantilla NP [...] use of controlled substances. documented in this [facility]09-30-2024 History of Present illness Narrative* Melia Mantilla NP - 06/18/2024 2:20 PM EDT SUBJECTIVE Berenice Lopez is a 18 y.o. female who presents [...] for Next scheduled follow-up. documented in this encounterMiss[facility] [id number] Instructions* Patient Instructions* Melia Mantilla NP - [...] use of controlled substances. documented in this encounterMiss[facility] [id number] NotePROCEDURE: XR HIPS DANNIELLE 5V W PELVIS HISTORY: Pain in thoracic spine ; bilateral hip pain, right greater than left COMPARISON: None. FINDINGS: BONES:No fracture, acute abnormality, or significant arthropathy. SOFT TISSUES:No visible soft tissue swelling. EFFUSION:None visible. OTHER: Negative. IMPRESSION: 1. Normal examination. Electronically authenticated by: JOY CARDOZA Date: 2023-01-10 11:58[facility] NoteOP Note OPERATION DATE: 11/12/2022 PROCEDURE: Diagnostic laparoscopy with left ovarian cystotomy with drainage of chocolate cyst with left ovarian cystectomy, lysis of adhesions and fulguration of endometriosis on the patient's right ovary. PREOPERATIVE DIAGNOSIS: Pelvic pain, suspect endometriosis; left ovarian cyst. POSTOPERATIVE DIAGNOSIS: Pelvic pain, suspect endometriosis; left ovarian cyst. ANESTHESIA: General. SURGEON: Curtis Flores D.O. SUPERINTENDENT LAUNDRY: KATHY Max URINE OUTPUT: Yellow and clear. [...] the regular diagnostic laparoscopy procedure only.) ?[id number] NoteOP Note OPERATION DATE: 11/12/2022 PROCEDURE: Diagnostic laparoscopy with left ovarian cystotomy with drainage of chocolate cyst with left ovarian cystectomy, lysis of adhesions and fulguration of endometriosis on the patient's right ovary. PREOPERATIVE DIAGNOSIS: Pelvic pain, suspect endometriosis; left ovarian cyst. POSTOPERATIVE DIAGNOSIS: Pelvic pain, suspect endometriosis; left ovarian cyst. ANESTHESIA: General. SURGEON: Curtis Flores D.O. SUPERINTENDENT LAUNDRY: KATHY Max URINE OUTPUT: Yellow and clear. [...] to Recovery Room in stable condition. (Dr. Floers requested: Please dictated standard robotic assisted diagnostic [...] inserted the regular diagnostic laparoscopy procedure only.)[facility] CenterEvaluation noteNo assessment information availableK[facility] Work Phone: Evaluation note* Diagnosis Chronic midline low back pain with bilateral sciatica- Primary Person consulting for explanation of examination or test finding Bilateral sacroiliitis (CMS/HCC) documented in this encounter [facility] HealthcareEvaluation note* Diagnosis Bilateral sacroiliitis (CMS/HCC) [...] in this encounter [facility]* Diagnosis Well woman exam with routine gynecological exam Routine gynecological examination Complex ovarian cyst Nausea Nausea alone Encounter for initial prescription of contraceptive pills documented in this encounter [facility]* Diagnosis Bilateral sacroiliitis (CMS/HCC) Chronic midline low back pain with bilateral sciatica documented in [facility]* Diagnosis Encounter to discuss test results Other specified counseling Complex ovarian cyst documented in this encounter [facility] Discharge instructions Additional Instructions I am glad that you are feeling better. Your symptoms are likely residual after your vomiting and diarrhea. I will prescribe medicine for nausea and for cramping. If you have any problems or concerns, we are always happy to see you here. I do want you to follow-up with your doctor.[facility] Work Phone: Chief Complaint and Reason for [...] December 12, 2024 7: 49am Advance Directives Advance Directive Response Recorded Date/ [...] 04, 2023 End: November 04, 2023 Curtis Flores Attending Provider Active Start: Jolie law 2023 End: November 04, 2023 Team Status: Inactive Member Role Status Dates Joe Rosenberg MD Primary Care Provider Active Donta Stewart MD Attending Provider Active Team Status: Inactive Member Role Status Dates Joe Rosenberg MD Primary Care Provider Active Severo Lea MD Emergency Provider Active Production Engine Repairer Relationship Specialty Start Date End Date Joe Rosenberg MD [address] [place] [address] PCP - General Family Medicine 10/19/23 Team Status: Active Member Role Status Dates VON Wyatt Primary Care Provider Active Team Status: Inactive Member Role Status Dates SUSANA WyattC Primary Care Provide r, Attending Provider Active Start: July 25, 2024 End: July 25, 2024 Production Engine Repairer Relationship Specialty Start Date End Date Jigar Grace MD [address] [place] [address] PCP - General Family Medicine 02/23/24 Melia Mantilla NP [address] [place] [id number] Nurse Practitioner Family Medicine 02/23/24 Awilda Tejada NP [address] [place] [address] Nurse Practitioner Family Medicine 02/23/24 Production Engine Repairer Relationship Specialty Start Date End Date Jigar Grace MD [address] [place] [id number] PCP - General Family Medicine 02/23/24 Melia Mantilla NP [address] [place] [address] Nurse Practitioner Family Medicine 02/23/24 Awilda Tejada NP [address] [place] [address] Nurse Practitioner Family Medicine 02/23/24 Production Engine Repairer Relationship Specialty Start Date End Date Jigar Grace MD [address] [place] [address] PCP - General Family Medicine 02/23/24 Melia Mantilla NP [address] [place] [address] Nurse Practitioner Family Medicine 02/23/24 Awilda Tejada NP [address] [place] [address] Nurse Practitioner Family Medicine 02/23/24 Production Engine Repairer Relationship Specialty Start Date End Date Jigar Grace MD [address] [place], [facility] PCP - General Family Medicine 02/23/24 Melia Mantilla NP [address] [place], [facility] Nurse Practitioner Family Medicine 02/23/24 Awilda Tejada NP [address] [place] [address] Nurse Practitioner Family Medicine 02/23/24 Production Engine Repairer Relationship Specialty Start Date End Date Jigar Grace MD [address] [place] [address] PCP - General Family Medicine 02/23/24 Melia Mantilla NP [address] [place] [address] Nurse Practitioner Family Medicine 02/23/24 Awilda Tejada NP [address] [place] [address] Nurse Practitioner Family Medicine 02/23/24 Production Engine Repairer Relationship Specialty Start Date End Date Jigar Grace MD [address] [place] [address] PCP - General Family Medicine 02/23/24 Melia Mantilla, CANAL EQUIPMENT MECHANIC [address] [place] [address] Nurse Practitioner Family Medicine 02/23/24 Awilda Tejada NP [address] [place] [address] Nurse Practitioner Family Medicine 02/23/24 Production Engine Repairer Relationship Specialty Start Date End Date Jigar Grace MD [address] [place] [address] PCP - General Family Medicine 02/23/24 Melia Mantilla CANAL EQUIPMENT MECHANIC [address] [place] [address] Nurse Practitioner Family Medicine 02/23/24 Awilda Tejada NP [address] [place] [address] Nurse Practitioner Family Medicine 02/23/24 Production Engine Repairer Relationship Specialty Start Date End Date Jigar Grace MD [address] [place] [address] PCP - General Family Medicine 02/23/24 Melia Mantilla CANAL EQUIPMENT MECHANIC [address] [place] [address] Nurse Practitioner Family Medicine 02/23/24 Awilda Tejada NP [address] [place] [address] Nurse Practitioner Family Medicine 02/23/24 Team Status: [...] October 17, 2024 End: October 18, 2024 Production Engine Repairer Relationship Specialty Start Date End Date Jigar Grace MD [address] [place] [address] PCP - General Family Medicine 02/23/24 Melia Mantilla NP [address] [place] [address] Nurse Practitioner Family Medicine 02/23/24 Awilda Tejada NP [address] [place] [address] Nurse Practitioner Family Medicine 02/23/24 Production Engine Repairer Relationship Specialty Start Date End Date Jigar Grace MD [address] [place] [address] PCP - General Family Medicine 02/23/24 Melia Mantilla NP [address] [place] [address] PCP - [facility] 09/19/24 Melia Mantilla NP [address] [place] [id number] Nurse Practitioner Family Medicine 02/23/24 Awilda Tejada NP [address] [place] [address] Nurse Practitioner Family Medicine 02/23/24 Production Engine Repairer Relationship Specialty Start Date End Date Jigar Grace MD [address] [place] [id number] PCP - General Family [facility] 02/23/24 Melia Mantilla NP [address] [place] [id number] PCP - [facility] 09/19/24 Melia Mantilla NP [address] [place] [id number] Nurse Practitioner Family Medicine 02/23/24 Awilda Tejada NP [address] [place] [address] Nurse Practitioner Family Medicine 02/23/24 Production Engine Repairer Relationship Specialty Start Date End Date Jigar Grace MD [address] [place] [address] PCP - General Family [facility] 02/23/24 Melia Mantilla NP [address] [place] [address] [facility] 09/19/24 Melia Mantilla NP [address] [place] [address] Nurse Practitioner Family Medicine 02/23/24 Awilda Tejada NP [address] [place] [address] Nurse Practitioner Family Medicine 02/23/24 Production Engine Repairer Relationship Specialty Start Date End Date Jigar Grace MD [address] [place] [address] PCP - General Family Medicine 02/23/24 Melia Mantilla NP [address] [place] [address] PCP - [facility] 09/19/24 Melia Mantilla NP [address] [place] [address] Nurse Practitioner Family Medicine 02/23/24 Awilda Tejada NP [address] [place] [address] Nurse Practitioner Family Medicine 02/23/24 Team Status: [...] Member Role Status Dates Melia Warchol , CANAL EQUIPMENT MECHANIC-C Primary Care Provide r, Attending Provider Active Start: December 12, 2024 End: December 12, 2024 Production Engine Repairer Relationship Specialty Start Date End Date Jigar Grace MD [address] [place] [address] PCP - General Family Medicine 02/23/24 Melia Mantilla NP [address] [place] [address] PCP - [facility] 09/19/24 Melia Mantilla NP [address] [place] [address] Nurse Practitioner Family Medicine 02/23/24 Awilda Tejada NP [address] [place] [address] Nurse Practitioner Family Medicine 02/23/24 Production Engine Repairer Relationship Specialty Start Date End Date Jigar Grace MD [address] [place] [address] PCP - General Family Medicine 02/23/24 Melia Mantilla NP [address] [place] [address] PCP - [facility] 09/19/24 Melia Mantilla NP [address] [place] [address] Nurse Practitioner Family Medicine 02/23/24 Awilda Tejada NP [address] [place] [address] Nurse Practitioner Family Medicine 02/23/24 Production Engine Repairer Relationship Specialty Start Date End Date Jigar Grace MD [address] [place] [address] PCP - General Family Medicine 02/23/24 Melia Mantilla NP [address] [place] [address] PCP - S [facility] 09/19/24 Melia Mantilla NP [address] [place] [address] Nurse Practitioner Family Medicine 02/23/24 Awilda Tejada NP [address] [place] [address] Nurse Practitioner Family Medicine 02/23/24 Production Engine Repairer Relationship Specialty Start Date End Date Jigar Grace MD [address] [place] [address] PCP - General Family [facility] 02/23/24 Melia Mantilla NP [address] [place] [address] PCP - S [facility] 09/19/24 Melia Mantilla NP [address] [place] [address] Nurse Practitioner Family Medicine 02/23/24 Awilda Tejada NP [address] [place] [address] Nurse Practitioner Family Medicine 02/23/24 Goals (unrecognized [...] and content) DATE CREATED AUTHOR 01/11/2023 [facility] DATE CREATED AUTHOR AUTHOR'S ORGANIZ ATION 12/13/2024 [facility] DATE CREATED AUTHOR AUTHOR'S ORGANIZ ATION 12/23/2024 [facility] EPIC Reason for Visit (unrecogniz ed section and content) Reason Comments Ovarian Cyst Reason Comments Well Women Visit Reason Comments Results FOR RECORDS PERTAINING TO PATIENTS WHO ARE [...] BE BASED ON THE PRIMARY CLINICAL RECORDS. [facility]. provides no warranty or guarantee of the accuracy or completeness of information in this document.
[2024-12-27 09:41] LABS: Basophils Percent Auto 0.5 % (0.2-2.0); Eosinophils Absolute Auto 0.1 10^3/uL (0.0-0.7); Eosinophils Percent Auto 1.3 % (0.9-7.0); Hematocrit 38.5 % (36.0-48.0); Hemoglobin 12.7 g/dL (12.0-16.0); Immature Granulocytes Abs Auto 0.01 10^3/uL (0.00-0.03); Immature Granulocytes Pct Auto 0.2 % (0.0-0.5); Lymphocytes Absolute Auto 1.8 10^3/uL (1.2-3.8); Lymphocytes Percent Auto 29.5 % (20.5-60.0); Mean Corpuscular Hemoglobin 28.6 pg (26.7-34.0); Mean Corpuscular Volume 86.7 fL (81.0-99.0); Monocytes Absolute Auto 0.4 10^3/uL (0.3-0.8); Monocytes Percent Auto 6.7 % (1.7-12.0); Neutrophils Absolute Auto 3.8 10^3/uL (1.4-6.5); Neutrophils Percent Auto 61.8 % (43.0-75.0); Platelet Count 277 10^3/uL (150-450); Red Blood Count 4.44 10^6/uL (4.20-5.40); Red Cell Distribution Width 13.4 % (11.0-15.0); White Blood Count 6.1 10^3/uL (4.0-11.0)
[2024-12-27 11:04] LABS: HCG Quantitative <1 mIU/mL
== END 2024-12-27 08:38 | disposition home or self-care (01) ==
LOC: PST 08:39
PROVIDERS: PCP Family Medicine; Visit Provider Obstetrics & Gynecology
DX: Z01.812 Encounter for preprocedural laboratory examination (principal); N83.299 Other ovarian cyst, unspecified side
CPT/HCPCS: 84702; 85025

== ENCOUNTER 2024-12-28 09:09 | Day surgery (SDC) | payer OTHER, SELFPAY ==
[2024-12-27 09:33] VITALS: BP 132/89; PULSE 68; TEMP 36.6; O2SAT 98; BMI 25.9
[2024-12-28] VITALS (10 sets, daily range): BP systolic 114–150; BP diastolic 73–101; PULSE 65–121; TEMP 36.3–36.7; O2SAT 94–98; BMI 25.0
--- OUTSIDE RECORDS SUMMARY | 2024-12-28 09:27 | XMS_ITS | CCD ---
Author Organization [facility] Care Team Providers Care Net Developer Contract Name Role Phone MD Joe Rosenberg Primary Care Provider [phone] MD Donta Stewart Attending Provider MD Severo Lea Emergency Provider [phone] SAN[address] ., DR SWANN Admitting Unavailable SANDRA [...] Care Provider Curtis Flores Attending Provider [place], SKY DIVER-C Mleia Primary Care Provider [place], SKY DIVER-C Mleia Attending Provider [phone] Sanjay GUEVARA, Jigar Triana Primary Care Provider [place] SKY DIVER, Melia Unavailable Lause SKY DIVER, Awilda R Unavailable [phone] [place] SKY DIVER-C, Melia Primary Care Provider [place] SKY DIVER-C, Melia Attending Provider [phone] López Coburn MD Emergency Provider [place] SKY DIVER, Melia Unavailable [place] SKY DIVER-C, Melia Primary Care Provider [phone] López Coburn MD Emergency Provider [place] PA-C, Melia L Attending Provider [place] SKY DIVER-C, Melia Attending Provider [place], Melia Primary Care Unavailable [place]arch[place], Melia Admitting Unavailable [place]arch[place], Melia Attending Unavailable [place], Melia Attending Unavailable [place], Melia Primary Care Unavailable [place]arch[place], Melia Admitting Unavailable [place]archol, Melia Primary Care Unavailable [place], Melia L Attending Unavailable StacyMelia L Admitting Unavailable [place], Melia Attending Unavailable [place]arch[place], Melia Primary Care Unavailable [place], Melia Admitting Unavailable [place], Melia Primary Care Unavailable López Coburn Jr Attending Unavailable López Coburn Jr Admitting Unavailable WARCHOL, MELIA Attending Unavailable WARCHOL, MELIA Attending Unavailable WARCHOL, MELIA Attending Unavailable STACY, MELIA Attending Unavailable STACY, MELIA Referring Unavailable STACY, MELIA Attending Unavailable CURTIS FLORES Attending Unavailable [place] SKY DIVER, Melia Unavailable Medications Current Medications Medication Drug Class(es) Dates Sig (Normalized) Sig (Original) amoxicillin 500 mg oral capsule (4 sources) Penicillin-class Antibacterial Start: 12-18-2024 take 1 [...] mg / norgestimate 0.25 mg oral tablet (9 sources) Progestin, Estrogen Start: 11-21-2024 End: 10-23-2025 [...] Agonist Start: 11-04-2023 End: 06-18-2024 HYDROcodone-acetami nophen ([place]) 5-325 MG tablet 11/04/2023 06/18/2024 Discontinued (Therapy [...] Name Value Interpretation Reference Range Facility ALL CBC WITH AUTO DIFFon BASOPHILS ABSOLUTE AUTO 0 N [facility] Basophils/100 WBC (Bld) 0.5 % 0.2 - 2.0 % [facility] Eosinophils/100 WBC (Bld) 1.3 % 0.9 - 7.0 % [facility] Erythrocyte distribution width (RBC) [Ratio] 13.4 % 11.0 - 15.0 % [facility] Hematocrit (Bld) [Volume fraction] 38.5 % 36.0 - 48.0 % [facility] Hemoglobin (Bld) [Mass/Vol] 12.7 g/dL 12.0 - 16.0 g/dL [facility] IMMATURE GRANULOCYTES ABS AUTO 0.01 [facility] Immature granulocytes/100 WBC (Bld) 0.2 % 0.0 - 0.5 % [facility] LYMPHOCYTES ABSOLUTE AUTO 1.8 [facility] Lymphocytes/100 WBC (Bld) 29.5 % 20.5 - 60.0 % [facility] MCH (RBC) [Entitic mass] 28.6 pg 26. 7 - 34.0 pg [facility] MCHC (RBC) [Mass/Vol] 33 g/dL 29.9 - 35.2 g/dL [facility] MCV (RBC) [Entitic vol] 86.7 fL 81.0 - 99.0 fL [facility] MONOCYTES ABSOLUTE AUTO 0.4 N [facility] Monocytes/100 WBC (Bld) 6.7 % 1.7 - 12.0 % [facility] NEUTROPHILS ABSOLUTE AUTO 3.8 [facility] Neutrophils/100 WBC (Bld) 61.8 % 43.0 - 75.0 % [facility] Platelet mean volume (Bld) [Entitic vol] 10 fL 9.5 - 13.5 fL [facility] TB EO # 0.1 [facility] TB PLT 277 [facility] TB RBC 4.44 [facility] WBC 6.1 [facility] ALL LDHon 12-20-2024 LDH [Catalytic activity/Vol] 130 U/L 81 - 234 U/L [facility]EL[facility] W/ TRANSVAGINALon 12-18-2024 [place] [address] Ultrasound Report Signed Patient: BERENICE LOPEZ MR#: [id number] : 2005 Acct:[id number] Age/Sex: 19 / F ADM Date: 12/18/24 Loc: US Attending Dr: Melia Potter Ordering Physician: Melia Potter Date of Service: 12/18/24 Procedure(s): US pelvis w/ transvaginal Accession Number(s): [id number] cc: Melia Potter; Joe Rosenberg M.D. [place] [address] Patient Name: BERENICE LOPEZ MRN: [facility]:[id number] date: 2005 Sex: F Assigned Patient Location: Current Patient Location: Accession/Order Number: [id number] Exam Date: 12/18/2024 09:05 Report Date: 12/18/2024 [...] Mary Gordillo M.D.12/18/2024 9:16 AM Dictation Location: [place] [address] Electronically authenticated by: [id number] Y Date: 12/18/2024 09:16 Dictated By: Mary Gordillo M.D. Signed By: 12/18/24918 DD/ 5 TD/TT: Electronics Detail Draftsperson: RYLEY Radiology, Radiologi MD nette - 12/18/2024 [place] [address] Ultrasound Report Signed Patient: BERENICE LOPEZ MR#: [id number] : 2005 Acct:[id number] Age/Sex: 19 / F ADM Date: 12/18/24 Loc: US Attending Dr: Melia Potter Ordering Physician: Melia Potter Date of Service: 12/18/24 Procedure(s): US pelvis w/ transvaginal Accession Number(s): [id number] cc: Melia Potter; Joe Rosenberg M.D. The [address] [address] Patient Name: BERENICE LOPEZ MRN: [facility]:[id number] date: 2005 Sex: F Assigned Patient Location: Current Patient Location: US Accession/Order Number: [id number] Exam Date: 12/18/2024 09:05 Report Date: 12/18/2024 [...] Mary Gordillo M.D.12/18/2024 9:16 AM Dictation Location: [place] [address] Electronically authenticated by: [id number] Y Date: 12/18/2024 09:16 Dictated By: Mary Gordillo M.D. Signed By: 12/18/2419 DD/ 5 TD/TT: Electronics Detail Draftsperson: [facility] Study observation (narrative) [employer] US PELVIS W/ TRANSVAGINALOrd ered By: Radiologist Radiology on 12-18-2024 [employer] Work Phone: MR lumbar spine wo conon MR lumbar spine wo con [facility] [place] [address] MRI Report Signed Patient: Berenice Lopez MR#: [id number] 2 : 2005 Acct:[id number] Age/Sex: 19 / F ADM Date: 12/12/24 Loc: [facility] Room: Type: [facility] Attending Dr: Melia Mantilla SKY DIVER-C Copies to: Melia Mantilla CNP Ordering Provider: [...] foraminal narrowing. L4-5: Circumferential disc bulge with hghr-wa-oqutyhbr facet arthropathy. Sfmx-ze-peqtloxz left- sided mild right-sided neural foraminal narrowing. [...] Olman Rondon M.D.12/12/2024 11:49 AM Dictation Location: [place] [address] Transcribed By: [facility] 12/12/24 1149 Dictated By: Olman Rondon MD 12/12/24 1135 Signed By: 12/12/24 1149 Normal [facility] Magnetic resonance imaging r eportOrdered By: Olman Rondon on 12-12-2024 Study report [facility] [place] [address] [place] [address] MRI Report Signed Patient: Berenice Lopez MR#: [id number] : 2005 Acct:[id number] Age/Sex: 19 / F ADM Date: 5 [facility] Type[facility] Attending Dr: Melia Mantilla SKY DIVER-C Copies to: Melia Mantilla CNP~ Ordering Provider: [...] foraminal narrowing. L4-5: Circumferential disc bulge with ygso-bg-sdsrqaqh facet arthropathy. Nsbh-lr-velxagoe left-sided mild right-sided neural foraminal narrowing. Mild [...] Olman Rondon M.D.12/12/2024 11:49 AM Dictation Location: [place] [address] Transcribed By: [facility] 12/12/24 1149 Dictated By: Olman Rondon MD 12/12/24 1135 Signed By: 12/12/24 1149 [facility] Work Phone: AFP Tumor Marker, Serumon AFP Tumor Marker, Serum 5.7 ng/mL High 0.0-4.7 [facility] Comment on above: Result Comment: [employer] Electrochemiluminescence Immunoassay (ECLIA) Values obtained with different assay methods or kits cannot be used interchangeably. Results cannot be interpreted as absolute evidence of the presence or absence of malignant disease. This test is not interpretable in females. Performed By: #### C EA, HCGQNT #### [facility] [address] [place] [address] [place] #### AFPTM, CA125, LDI #### [facility] , CEA ser/plasOrdered By: Melia Mantilla on 11-20-2024 Carcinoembryonic Ag [Mass/Vol] Serum or plasma carcinoembryonic antigen measurement (mass/volume) 0.0-3.0 [facility] Comment on above: Serial tumor marker results determined by assays using different manufacturers or methods may not be comparable.[facility] Laboratory supervisor fabrication and method:Fancy DXI, 2 SITE IMMUNOENZYMATIC SANDWICH ASSAY. Cancer Antigen 125on 025 Cancer Antigen 125 22.2 Normal 0.0-38.1 [facility] Comment on above: Result Comment: [employer] Electrochemiluminescence Immunoassay (ECLIA) Values obtained with different assay methods or kits cannot be used interchangeably. Results cannot be interpreted as absolute evidence of the presence or absence of malignant disease. Performed at: [address] [id number] Assistant Baseball Coach: Ced Masters PhD, Phone: [phone] Performed By: #### C EA, HCGQNT #### [address] #### AFPTM, CA125, LDI #### [facility] , Choriogonadotropin.beta subu nit [Units/volume] in Serum or PlasmaOrdered By: Melia Mantilla on 11-20-2024 HCG.beta subunit Qn Choriogonadotropin.b eta subunit [Units/volume] in Serum or Plasma [facility] Comment on above: Approximate Approxim ate hCG Gestational Age Range (mIU/ml) (weeks)0.2-1 5-50 1-2 50-500 2-3 100-5,000 3-4 500-10,000 4-5 1,000-50,000 5-6 10,000-100,000 6-8 15,000-200,000 8-12 10,000-100,000 HCG,Quantitativeon HCG,Quantitative <0.60 Normal [facility] Comment on above: Result Comment: Appr oximate Approximate hCG Gestational Age Range (mIU/ml) (weeks) 0.2-1 5-50 1-2 50-500 2-3 100-5,000 3-4 500-10,000 4-5 1,000-50,000 5-6 10,000-100,000 6-8 15,000-200,000 8-12 10,000-100,000 PERFORMED BY: [place] [address] PATHOLOGIST HIGHER EDUCATION ADMINISTRATOR CORNELIUS MARK M.D. Performed By: #### C EA, HCGQNT #### [address] #### AFPTM, CA125, LDI #### [facility] , LD Isoenzymeson 11-20-2024 LD1 Isoenzyme 24 % Normal 17-32 [facility] Comment on above: Performed By: #### C EA, HCGQNT #### [address] #### AFPTM, CA125, LDI #### [facility] , LD2 Isoenzyme 33 % Normal 25-40 [facility] Comment on above: Performed By: #### C EA, HCGQNT #### [place] [address] [place] #### AFPTM, CA125, LDI #### [facility] , LD3 Isoenzyme 20 % Normal 17-27 [facility] Comment on above: Performed By: #### C EA, HCGQNT #### [place] [address] [place] #### AFPTM, CA125, LDI #### [facility] , LD4 Isoenzyme 12 % Normal 5-13 [facility] Comment on above: Performed By: #### C EA, HCGQNT #### [address] #### AFPTM, CA125, LDI #### [facility] , LD5 Isoenzyme 11 % Normal 4-20 [facility] Comment on above: Result Comment: Perf ormed at: - [facility] [address] [id number] Assistant Baseball Coach: Ced Masters PhD, Phone: [phone] Performed at: - [facility] [id number] Assistant Baseball Coach: Klever Echevarria MD, Phone: [phone] PERFORMED BY: [place] [address] PATHOLOGIST HIGHER EDUCATION ADMINISTRATOR CORNELIUS MARK M.D. Performed By: #### C EA, HCGQNT #### [address] #### AFPTM, CA125, LDI #### [facility] , Total LD/Isoenzymes 148 Normal 119-226 [facility] Comment on above: Performed By: #### C EA, HCGQNT #### [address] #### AFPTM, CA125, LDI #### [facility] , Lactate dehydrogenase isoenz yme 1 measurementOrdered By: Melia Mantilla on 11-20-2024 LDH 1 Elph [Catalytic fraction] Lactate dehydrogenase isoenzyme 1 measurement 17-32 [facility] Lactate dehydrogenase isoenz yme 2 measurementOrdered By: Melia Annalee on 11-20-2024 LDH 2 Elph [Catalytic fraction] Lactate dehydrogenase isoenzyme 2 measurement 25-40 [facility] Lactate dehydrogenase isoenz yme 3 measurementOrdered By: Melia Annalee on 11-20-2024 LDH 3 Elph [Catalytic fraction] Lactate dehydrogenase isoenzyme 3 measurement 17-27 [facility] Lactate dehydrogenase isoenz yme 4 measurementOrdered By: Melia Mantilla on 11-20-2024 LDH 4 Elph [Catalytic fraction] Lactate dehydrogenase isoenzyme 4 measurement 5-13 [facility] Lactate dehydrogenase isoenz yme 5 measurementOrdered By: Melia Mantilla on 11-20-2024 LDH 5 Elph [Catalytic fraction] Lactate dehydrogenase isoenzyme 5 measurement 4-20 [facility] Comment on above: Performed at: - [facility] [id number] [place], [place] [id number] Director: Ced Masters PhD, Phone: [phone] at: [facility] [address] [id number] Director: Klever Echevarria MD, Phone: [phone] Serum or plasma irsce-0-lcrf protein tumor marker measurement (mass/volume)Ordered By: Melia Mantilla on 11-20-2024 AFP.tumor marker [Mass/Vol] Serum or plasma akuja-1-scxpochcxdk tumor marker measurement (mass/volume) High 0.0-4.7 [facility] Comment on above: [facility] El ectrochemiluminescence [...] er antigen 125 (CA-125) measurement (units/volume) 0.0-38.1 [facility] Comment on above: [facility] El ectrochemiluminescence Immunoassay(ECLIA)Values obtained with different assay methods or kits cannotbe used interchangeably. Results cannot be interpreted asabsolute evidence of the presence or absence of malignantdisease.Performed at: - [facility] [id number] [place], [place] [id number] Director: Ced Masters PhD, Phone: [phone] Total lactic dehydrogenase ( LDH) and isoenzymes measurementOrdered By: Melia Mantilla on 11-20-2024 LDH panel Total lactic dehydrogenase (LDH) and isoenzymes measurement 119-226 [facility] US PELVIC COMPLETE W/ TVon 0 11-06-2024 [...] II, MD, PHD at 07-Nov-2024 08:03:54 AM [facility] Normal Not Available Comment on above: Order [...] aminotransferase [Enzymatic activity/volume] in Serum or Plasma [facility] Albumin [Mass/volume] in Ser um or Plasma by Bromocresol green (BCG) dye binding methoOrdered By: López Coburn on 10-17-2024 Albumin BCG dye [Mass/Vol] Albumin [Mass/volume] in Serum or Plasma by Bromocresol green (BCG) dye binding metho 3.5-5.7 [facility] Alkaline phosphatase [Enzyma tic activity/volume] in Serum or PlasmaOrdered By: López Coburn on 10-17-2024 ALP [Catalytic activity/Vol] Alkaline phosphatase [Enzymatic activity/volume] in Serum or Plasma 34-104 [facility] Appearance of UrineOrdered B y: López Coburn on 10-17-2024 Appearance (U) Urine appearance Abnormal Clear [facility] Aspartate aminotransferase [ Enzymatic activity/volume] in Serum or PlasmaOrdered By: López Coburn on 10-17-2024 AST [Catalytic activity/Vol] Aspartate aminotransferase [Enzymatic activity/volume] in Serum or Plasma 13-39 [facility] Bacteria [Presence] in Urine by AutomatedOrdered By: López Coburn on 10-17-2024 Bacteria Auto Ql (U) Bacteria [Presence] in Urine by Automated None Seen [facility] Basophils Auto (Bld) [#/Vol] Ordered By: López Coburn on 10-17-2024 Basophils (Bld) [#/Vol] Automated basophil count 0.0-0.2 [facility] Basophils/100 WBC Auto (Bld) Ordered By: López Coburn on 10-17-2024 Basophils/100 WBC (Bld) Automated basophil % . [facility] Bilirubin Test strip Ql (U)O rdered By: López Coburn on 10-17-2024 Bilirubin Ql (U) Bilirubin.total [Presence] in Urine by Test strip Negative [facility] Bilirubin.total [Mass/volume ] in Serum or PlasmaOrdered By: López Coburn on 10-17-2024 Bilirubin [Mass/Vol] Bilirubin.total [Mass/volume] in Serum or Plasma 0.3-1.0 [facility] Calcium [Mass/volume] in Ser um or PlasmaOrdered By: López Coburn on 10-17-2024 Calcium [Mass/Vol] Calcium [Mass/volume ] in Serum or Plasma High 8.6-10.3 [facility] Carbon dioxide, total [Moles /volume] in Serum or PlasmaOrdered By: López Coburn on 10-17-2024 CO2 [Moles/Vol] Carbon dioxide, tota l [Moles/volume] in Serum or Plasma 21.0-31.0 [facility] Chloride [Moles/volume] in S trenton or PlasmaOrdered By: López Coburn on 10-17-2024 Chloride [Moles/Vol] Chloride [Moles/vol ume] in Serum or Plasma 98-107 [facility] Color Auto (U)Ordered By: Vidal Coburn on 10-17-2024 Color (U) Color of Urine by Auto Yellow [facility] Complete Blood Count Auto Di ffon 10-17-2024 Basophils (Bld) [#/Vol] 0.0 10*3/uL Normal 0.0-0.2 [facility] Comment on above: Result Comment: PERF ORMED BY: [facility] [address] [facility] [place] [address] PATHOLOGIST HIGHER EDUCATION ADMINISTRATOR CORNELIUS MARK M.D. Performed By: #### C BC, CMP ####[address] Basophils/100 WBC (Bld) 0.3 % Normal . Herbert freeman [facility] Comment on above: Performed By: #### C BC, CMP ####[address] Eosinophils (Bld) [#/Vol] 0.0 10*3/uL Normal 0.0-0.45 [facility] Comment on above: Performed By: #### C BC, CMP ####[address] Eosinophils/100 WBC (Bld) 0.1 % Normal . [facility] Comment on above: Performed By: #### C BC, CMP ####[address] Erythrocyte distribution width (RBC) [Ratio] 13.5 % Normal 11.9-15.3 [facility] Comment on above: Performed By: #### C BC, CMP ####[address] Hematocrit (Bld) [Volume fraction] 40.4 % Normal 34.0-46.4 [facility] Comment on above: Performed By: #### C JACKIE, CMP ####[address] Hemoglobin (Bld) [Mass/Vol] 13.9 g/dL Normal 11.8-15.4 [facility] Comment on above: Performed By: #### C JACKIE, CMP ####[address] Lymphocytes (Bld) [#/Vol] 1.4 10*3/uL Normal 1.00-4.8 [facility] Comment on above: Performed By: #### C JACKIE, CMP ####[address] Lymphocytes/100 WBC (Bld) 20.3 % Normal . [facility] Comment on above: Performed By: #### C JACKIE, CMP ####[address] MCH (RBC) [Entitic mass] 29.1 pg Normal 24.7-34.3 [facility] Comment on above: Performed By: #### C JACKIE, CMP ####[address] MCV (RBC) [Entitic vol] 84.6 fL Normal 80-100 T [facility] Comment on above: Performed By: #### C JACKIE, CMP ####[address] Mean Corpuscular HGB Conc 34.4 g/dL Normal 32.0-35.0 [facility] Comment on above: Performed By: #### C JACKIE, CMP ####[address] Monocytes (Bld) [#/Vol] 0.7 10*3/uL Normal 0.0-0.8 [facility] Comment on above: Performed By: #### C JACKIE, CMP ####[address] [address] [facility] Monocytes/100 WBC (Bld) 17.74 % Normal 0.00-20.00 T [facility] Comment on above: Performed By: #### C BC, CMP ####[address] [address] [facility] Monocytes/100 WBC (Bld) 9.6 % Normal . [facility] Comment on above: Performed By: #### C BC, CMP ####[address] [address] [facility] Neutrophils (Bld) [#/Vol] 4.8 10*3/uL Normal 1.8-7.7 [facility] Comment on above: Performed By: #### C JACKIE, CMP ####[address] [address] [facility] Neutrophils/100 WBC (Bld) 69.7 % Normal . [facility] Comment on above: Performed By: #### C JACKIE, CMP ####[address] [address] [facility] NRBC% 0.1 /100{WBC} Normal 0-0.5 [facility] Comment on above: Performed By: #### C JACKIE, CMP ####[address] [address] [facility] Platelet mean volume (Bld) [Entitic vol] 8.0 fL Normal 6.3-10.7 [facility] Comment on above: Performed By: #### C JACKIE, CMP ####[address] [address] [facility] Platelets (Bld) [#/Vol] 253 10*3/uL Normal 150-450 [facility] Comment on above: Performed By: #### C BC, CMP ####[address] [address] [facility] RBC (Bld) [#/Vol] 4.77 10*6/uL Normal 3.60-5.00 [facility] Comment on above: Performed By: #### C JACKIE, CMP ####[address] [address] [facility] WBC (Bld) [#/Vol] 7.0 10*3/uL Normal 3.8-11.6 [facility] Comment on above: Performed By: #### C BC, CMP ####[address] [address] [facility] Comprehensive Metabolic Pane emigdio 10-17-2024 Albumin [Mass/Vol] 4.7 g/dL Normal 3.5-5.7 [facility] Comment on above: Performed By: #### C BC, CMP ####[address] [address] [facility] Albumin/Globulin [Mass ratio] 1.7 {ratio} Normal [facility] Comment on above: Performed By: #### C BC, CMP ####[address] [address] [facility] ALP [Catalytic activity/Vol] 44 U/L Normal 34-104 [facility] Comment on above: Performed By: #### C BC, CMP ####[address] [address] [facility] ALT [Catalytic activity/Vol] 10 U/L Normal 7-52 [facility] Comment on above: Performed By: #### C BC, CMP ####[address] [address] [facility] Anion gap [Moles/Vol] 14.7 mmol/L Normal 6.0-15.0 e [facility] Comment on above: Performed By: #### C BC, CMP ####[address] [address] [facility] AST [Catalytic activity/Vol] 13 U/L Normal 13-39 [facility] Comment on above: Performed By: #### C BC, CMP ####[place] [id number] [facility] Bilirubin [Mass/Vol] 0.4 mg/dL Normal 0.3-1.0 [facility] Comment on above: Performed By: #### C BC, CMP ####[address] Calcium [Mass/Vol] 10.4 mg/dL High 8.6-10.3 [facility] Comment on above: Performed By: #### C BC, CMP ####[place] [id number] [facility] Chloride [Moles/Vol] 106 mmol/L Normal 98-107 [facility] Comment on above: Performed By: #### C BC, CMP ####[address] CO2 [Moles/Vol] 23.3 mmol/L Normal 21.0-31.0 [facility] Comment on above: Performed By: #### C BC, CMP ####[address] Creatinine [Mass/Vol] 0.77 mg/dL Normal 0.60-1.20 [facility] Comment on above: Performed By: #### C BC, CMP ####[address] Creatinine Clr Calc Pharmacy 109.29 Normal [facility] Comment on above: Result Comment: PERF ORMED BY: [facility] [address] [place] [address] PATHOLOGIST HIGHER EDUCATION ADMINISTRATOR CORNELIUS MARK M.D. Performed By: #### C BC, CMP ####[address] GFR/1.73 sq M.predicted MDRD (S/P/Bld) [Vol rate/Area] mL/min/{1.73_m2} Normal [facility] Comment on above: Performed By: #### C BC, CMP ####[place] [id number] [facility] Globulin (S) [Mass/Vol] 2.7 g/dL Normal T he [facility] Comment on above: Performed By: #### C BC, CMP ####[place] [id number] [facility] Glucose [Mass/Vol] 89 mg/dL Normal 70-100 [facility] Comment on above: Result Comment: [place] Glucose Reference Range is dependent on time and content of last meal. Glucose of more than 200 mg/dL in a nonstressed, ambulatory subject supports the diagnosis of Diabetes Mellitus. ADA recommended reference range Performed By: #### C BC, CMP ####[facility] [place] [address] [facility] Potassium [Moles/Vol] 4.0 mmol/L Normal 3.5-5.1 [facility] Comment on above: Performed By: #### C BC, CMP ####[place] [id number] [place] [id number] [facility] Protein [Mass/Vol] 7.4 g/dL Normal 6.4-8.9 [facility] Comment on above: Performed By: #### C BC, CMP ####[place] [id number] [place] [id number] [facility] Sodium [Moles/Vol] 140 mmol/L Normal 136-145 [facility] Comment on above: Performed By: #### C BC, CMP ####[address] [id number] [place] [address] [facility] Urea nitrogen [Mass/Vol] 15 mg/dL Normal 7-25 [facility] Comment on above: Performed By: #### C BC, CMP ####[place] [id number] [place] [id number] [facility] Creatinine [Mass/volume] in Serum or PlasmaOrdered By: López Coburn on 10-17-2024 Creatinine [Mass/Vol] Creatinine [Mass/v olume] in Serum or Plasma 0.60-1.20 [facility] Dipstick and Microscopicon 0 10-17-2024 Appearance (U) Cloudy Critically abnormal Clear [facility] Comment on above: Order Comment: Name Collection Type:: Clean-Voided Midstream Performed By: #### A DDONUAPLUS, UHCG #### [facility] [address] [place] [address] [facility] Bacteria,Urine Rare Normal None Seen [facility] Comment on above: Order Comment: Name Collection Type:: Clean-Voided Midstream Performed By: #### A DDONUAPLUS, UHCG #### [address] Bilirubin,Urine Negative Normal Negative [facility] Comment on above: Order Comment: Name Collection Type:: Clean-Voided Midstream Performed By: #### A DDONUAPLUS, UHCG #### [address] Color (U) Yellow Normal Yellow [facility] Comment on above: Order Comment: Name Collection Type:: Clean-Voided Midstream Performed By: #### A DDONUAPLUS, UHCG #### [address] Glucose Ql (U) Normal Normal Normal [facility] Comment on above: Order Comment: Name Collection Type:: Clean-Voided Midstream Performed By: #### A DDONUAPLUS, UHCG #### [place] [address] [place] Hyaline Casts,Urine 9 [LPF] High 0-8 [facility] Comment on above: Order Comment: Name Collection Type:: Clean-Voided Midstream Performed By: #### A DDONUAPLUS, UHCG #### [address] Ketones Ql (U) 2+ High Negative [facility] Comment on above: Order Comment: Name Collection Type:: Clean-Voided Midstream Performed By: #### A DDONUAPLUS, UHCG #### [address] Leukocyte esterase Test strip Ql (U) Negative Normal Negative [facility] Comment on above: Order Comment: Name Collection Type:: Clean-Voided Midstream Performed By: #### A DDONUAPLUS, UHCG #### [address] Mucus,Urine 4+ Critically abnormal [facility] Comment on above: Order Comment: Name Collection Type:: Clean-Voided Midstream Performed By: #### A DDONUAPLUS, UHCG #### [place] [address] [place] Nitrite,Urine Negative Normal Negative [facility] Comment on above: Order Comment: Name Collection Type:: Clean-Voided Midstream Performed By: #### A DDONUAPLUS, UHCG #### [address] Occult Blood,Urine Negative Normal Negative [facility] Comment on above: Order Comment: Name Collection Type:: Clean-Voided Midstream Performed By: #### A DDONUAPLUS, UHCG #### [address] pH (U) 6.0 [pH] Normal 5.0-9.0 [facility] Comment on above: Order Comment: Name Collection Type:: Clean-Voided Midstream Performed By: #### A DDONUAPLUS, UHCG #### [address] Protein (U) [Mass/Vol] 30 mg/dL High Negative [facility] Comment on above: Order Comment: Name Collection Type:: Clean-Voided Midstream Performed By: #### A DDONUAPLUS, UHCG #### [address] RBC,Urine 1 [HPF] Normal 0-4 [facility] Comment on above: Order Comment: Name Collection Type:: Clean-Voided Midstream Performed By: #### A DDONUAPLUS, UHCG #### [address] Specificy [place],Urine 1.039 High 1.00 1-1.03 0 [facility] Comment on above: Order Comment: Name Collection Type:: Clean-Voided Midstream Performed By: #### A DDONUAPLUS, UHCG #### [address] Squamous Epithelial Cell,Urine 10 [HPF] High 0-2 [facility] Comment on above: Order Comment: Name Collection Type:: Clean-Voided Midstream Performed By: #### A DDONUAPLUS, UHCG #### [facility] [address] Urobilinogen,Urine 2 mg/dL High Normal [facility] Comment on above: Order Comment: Name Collection Type:: Clean-Voided Midstream Performed By: #### A DDONUAPLUS, UHCG #### [facility] [address] WBC,Urine 3 [HPF] Normal 0-4 [facility] Comment on above: Order Comment: Name Collection Type:: Clean-Voided Midstream Performed By: #### A DDONUAPLUS, UHCG #### [facility] [address] Eosinophils Auto (Bld) [#/Vo l]Ordered By: López Coburn on 10-17-2024 Eosinophils (Bld) [#/Vol] Automated eosinophil count 0.0-0.45 [facility] Eosinophils/100 WBC Auto (Bl d)Ordered By: López Coburn on 10-17-2024 Eosinophils/100 WBC (Bld) Automated eosinophil % . [facility] Epithelial cells.squamous [# /area] in Urine sediment by Automated countOrdered By: López Coburn on 10-17-2024 Epithelial cells.squamous Auto (Urine sed) [#/Area] Epithelial cells.squamous [#/area] in Urine sediment by Automated count High 0-2 [facility] Erythrocyte distribution wid th Auto (RBC) [Ratio]Ordered By: López Coburn on 10-17-2024 Erythrocyte distribution width (RBC) [Ratio] Erythrocyte distribution width [Ratio] by Automated count 11.9-15.3 [facility] Erythrocytes [#/area] in Uri ne sediment by Automated countOrdered By: López Coburn on 10-17-2024 RBC Auto (Urine sed) [#/Area] Erythrocytes [#/area] in Urine sediment by Automated count 0-4 [facility] Globulin Calc (S) [Mass/Vol] Ordered By: López Coburn on 10-17-2024 Globulin (S) [Mass/Vol] Serum globulin measurement by calculation (mass/volume) [facility] Glucose [Mass/volume] in Ser um or PlasmaOrdered By: López Coburn on 10-17-2024 Glucose [Mass/Vol] Glucose [Mass/volume ] in Serum or Plasma 70-100 [facility] Comment on above: ADA recommended refe rence rangeRandom Glucose Reference Range is dependent on time and content of last meal. Glucose of more than 200 mg/dL in a nonstressed, ambulatory subject supports the diagnosis of Diabetes Mellitus. Glucose [Mass/volume] in Uri ne by Test stripOrdered By: López Coburn on 10-17-2024 Glucose Test strip (U) [Mass/Vol] Glucose [Mass/volume] in Urine by Test strip Normal [facility] HCG ( test) IA.rapi d Ql (U)Ordered By: López Coburn on 10-17-2024 HCG ( test) Ql (U) Urine human chorionic gonadotropin (hCG) detection by immunoassay [facility] HCG,Urineon 10-17-2024 Beta HCG ( test) Ql (U) Negative Normal [facility] Comment on above: Order Comment: Name Collection Type:: Clean-Voided Midstream Result Comment: PERF ORMED BY: [place] [address] PATHOLOGIST HIGHER EDUCATION ADMINISTRATOR CORNELIUS MARK M.D. Performed By: #### A DDADITYAUAST[facility]LL[facility] [place] #### [address] Hematocrit Auto (Bld) [Volum e fraction]Ordered By: López Coburn on 10-17-2024 Hematocrit (Bld) [Volume fraction] Hematocrit [Volume Fraction] of Blood by Automated count 34.0-46.4 [facility] Hemoglobin Test strip Ql (U) Ordered By: López Coburn on 10-17-2024 Hemoglobin Ql (U) Hemoglobin [Presence ] in Urine by Test strip Negative [facility] Hemoglobin [Mass/volume] in BloodOrdered By: López Coburn on 10-17-2024 Hemoglobin (Bld) [Mass/Vol] Hemoglobin [Mass/volume] in Blood 11.8-15.4 [facility] Hyaline casts [#/area] in Ur ine sediment by Automated countOrdered By: López Coburn on 10-17-2024 Hyaline casts Auto (Urine sed) [#/Area] Hyaline casts [#/area] in Urine sediment by Automated count High 0-8 [facility] Ketones Test strip Ql (U)Ord ered By: López Coburn on 10-17-2024 Ketones Ql (U) Ketones [Presence] i n Urine by Test strip High Negative [facility] Leukocyte esterase [Presence ] in Urine by Test stripOrdered By: López Coburn on 10-17-2024 Leukocyte esterase Test strip Ql (U) Leukocyte esterase [Presence] in Urine by Test strip Negative [facility] Leukocytes [#/area] in Urine sediment by Automated countOrdered By: López Coburn on 10-17-2024 WBC Auto (Urine sed) [#/Area] Leukocytes [#/area] in Urine sediment by Automated count 0-4 [facility] Leukocytes [#/volume] correc nicole for nucleated erythrocytes in Blood by Automated counOrdered By: López Coburn on 10-17-2024 WBC corrected for nucl RBC Auto (Bld) [#/Vol] Leukocytes [#/volume] corrected for nucleated erythrocytes in Blood by Automated coun 3.8-11.6 [facility] Lymphocytes Auto (Bld) [#/Vo l]Ordered By: López Coburn on 10-17-2024 Lymphocytes (Bld) [#/Vol] Lymphocytes [#/volume] in Blood by Automated count 1.00-4.8 [facility] Lymphocytes/100 WBC Auto (Bl d)Ordered By: López Coburn on 10-17-2024 Lymphocytes/100 WBC (Bld) Lymphocytes/100 leukocytes in Blood by Automated count . [facility] MCH Auto (RBC) [Entitic mass ]Ordered By: López Coburn on 10-17-2024 MCH (RBC) [Entitic mass] MCH [Entitic ma ss] by Automated count 24.7-34.3 [facility] MCHC Auto (RBC) [Mass/Vol]Or dered By: López Coburn on 10-17-2024 MCHC (RBC) [Mass/Vol] MCHC [Mass/volume] by Automated count 32.0-35.0 [facility] MCV Auto (RBC) [Entitic vol] Ordered By: López Coburn on 10-17-2024 MCV (RBC) [Entitic vol] MCV [Entitic vol ume] by Automated count 80-100 [facility] Monocyte distribution width [Entitic volume] in Blood by AutomatedOrdered By: López Coburn on 10-17-2024 Monocyte distribution width Auto (Bld) [Entitic vol] Monocyte distribution width [Entitic volume] in Blood by Automated 0.00-20.00 [facility] Monocytes Auto (Bld) [#/Vol] Ordered By: López Coburn on 10-17-2024 Monocytes (Bld) [#/Vol] Automated blood monocyte count 0.0-0.8 [facility] Monocytes/100 WBC Auto (Bld) Ordered By: López Coburn on 10-17-2024 Monocytes/100 WBC (Bld) Automated monocyte % . [facility] Mucus [Presence] in Urine by AutomatedOrdered By: López Coburn on 10-17-2024 Mucus Auto Ql (U) Mucus [Presence] in Urine by Automated Abnormal [facility] Neutrophils Auto (Bld) [#/Vo l]Ordered By: López Coburn on 10-17-2024 Neutrophils (Bld) [#/Vol] Neutrophils [#/volume] in Blood by Automated count 1.8-7.7 [facility] Neutrophils/100 WBC Auto (Bl d)Ordered By: López Coburn on 10-17-2024 Neutrophils/100 WBC (Bld) Automated neutrophil % . [facility] Nitrite Test strip Ql (U)Ord ered By: López Coburn on 10-17-2024 Nitrite Ql (U) Nitrite [Presence] i n Urine by Test strip Negative [facility] No Panel InformationOrdered By: López Coburn on 10-17-2024 Estimated GFR (CKD-EPI) > 60.0 mL/Min [facility] Creatinine Clearance (Chem 109.29 [facility] Nucleated erythrocytes [Pres ence] in Blood by Automated countOrdered By: López Coburn on 10-17-2024 Nucleated RBC Auto Ql (Bld) Nucleated erythrocytes [Presence] in Blood by Automated count 0-0.5 [facility] Platelet mean volume Auto (B ld) [Entitic vol]Ordered By: López Coburn on 10-17-2024 Platelet mean volume (Bld) [Entitic vol] Platelet mean volume [Entitic volume] in Blood by Automated count 6.3-10.7 [facility] Platelets Auto (Bld) [#/Vol] Ordered By: López Coburn on 10-17-2024 Platelets (Bld) [#/Vol] Platelets [#/vol ume] in Blood by Automated count 150-450 [facility] Potassium [Moles/volume] in Serum or PlasmaOrdered By: López Coburn on 10-17-2024 Potassium [Moles/Vol] Potassium [Moles/v olume] in Serum or Plasma 3.5-5.1 [facility] Protein Test strip (U) [Mass /Vol]Ordered By: López Coburn on 10-17-2024 Protein (U) [Mass/Vol] Protein [Mass/vol ume] in Urine by Test strip High Negative [facility] Protein [Mass/volume] in Ser um or PlasmaOrdered By: López Coburn on 10-17-2024 Protein [Mass/Vol] Protein [Mass/volume ] in Serum or Plasma 6.4-8.9 [facility] RBC Auto (Bld) [#/Vol]Ordere d By: López Coburn on 10-17-2024 RBC (Bld) [#/Vol] Erythrocytes [#/volu me] in Blood by Automated count 3.60-5.00 [facility] Serum or plasma albumin/glob ulin mass ratioOrdered By: López Coburn on 10-17-2024 Albumin/Globulin [Mass ratio] Serum or plasma albumin/globulin mass ratio [facility] Serum or plasma anion gap de terminationOrdered By: López Coburn on 10-17-2024 Anion gap [Moles/Vol] Serum or plasma an ion gap determination 6.0-15.0 [facility] Sodium [Moles/volume] in Ser um or PlasmaOrdered By: López Coburn on 10-17-2024 Sodium [Moles/Vol] Sodium [Moles/volume ] in Serum or Plasma 136-145 [facility] Specific gravity Test strip (U) [Rel density]Ordered By: López Coburn on 10-17-2024 Specific gravity (U) [Rel density] Specific gravity of Urine by Test strip High 1.001-1.03 0 [facility] Urea nitrogen [Mass/volume] in Serum or PlasmaOrdered By: López Coburn on 10-17-2024 Urea nitrogen [Mass/Vol] Urea nitrogen [Mass/volume] in Serum or Plasma 04-12 [facility] Urobilinogen Test strip (U) [Mass/Vol]Ordered By: López Coburn on 10-17-2024 Urobilinogen (U) [Mass/Vol] Urobilinogen [Mass/volume] in Urine by Test strip High Normal [facility] WBC Auto (Bld) [#/Vol]Ordere d By: López Coburn on 10-17-2024 WBC (Bld) [#/Vol] Leukocytes [#/volume ] in Blood by Automated count 3.8-11.6 [facility] pH Test strip (U)Ordered By: López Coburn on 10-17-2024 pH (U) pH of Urine by Test strip 5.0-9.0 [facility] Alanine aminotransferase [En zymatic activity/volume] in Serum or PlasmaOrdered By: Melia Mantilla on 07-25-2024 ALT [Catalytic activity/Vol] 9 U/L Normal [facility] Comment on above: Performed By: #### C SUSAN, MG ####[facility] [id number] [place] [id number] [facility] ALT [Catalytic activity/Vol] Alanine aminotransferase [Enzymatic activity/volume] in Serum or Plasma [facility] Albumin [Mass/volume] in Ser um or Plasma by Bromocresol green (BCG) dye binding methoOrdered By: Melia Mantilla on 07-25-2024 Albumin BCG dye [Mass/Vol] 4.4 g/dL 3.5-5.7 [facility] Albumin BCG dye [Mass/Vol] Albumin [Mass/volume] in Serum or Plasma by Bromocresol green (BCG) dye binding metho 3.5-5.7 [facility] Alkaline phosphatase [Enzyma tic activity/volume] in Serum or PlasmaOrdered By: Melia Mantilla on 07-25-2024 ALP [Catalytic activity/Vol] 42 U/L Normal [facility] Comment on above: Performed By: #### C SUSAN, MG ####[facility] [id number] [place] [address] [facility] ALP [Catalytic activity/Vol] Alkaline phosphatase [Enzymatic activity/volume] in Serum or Plasma [facility] Aspartate aminotransferase [ Enzymatic activity/volume] in Serum or PlasmaOrdered By: Melia Mantilla on 07-25-2024 AST [Catalytic activity/Vol] 10 U/L Low 13-39 [facility] Comment on above: Performed By: #### C MP, MG ####[address] AST [Catalytic activity/Vol] Aspartate aminotransferase [Enzymatic activity/volume] in Serum or Plasma Low 13-39 [facility] Automated basophil %Ordered By: Melia Mantilla on 07-25-2024 Basophils/100 WBC (Bld) 0.5 % Normal . [facility] Comment on above: Performed By: #### C BC ####[address] Automated basophil countOrde red By: Melia Mantilla on 07-25-2024 Basophils (Bld) [#/Vol] 0.0 10*3/uL Normal 0.0-0.2 [facility] Comment on above: Result Comment: PERF ORMED BY: [facility] [address] [place] [address] PATHOLOGIST HIGHER EDUCATION ADMINISTRATOR BORIS ELIZABETH M.D. Performed By: #### C BC ####[address] Automated blood monocyte cou ntOrdered By: Melia Mantilla on 07-25-2024 Monocytes (Bld) [#/Vol] 0.5 10*3/uL Normal 0.0-0.8 [facility] Comment on above: Performed By: #### C BC ####[address] Automated eosinophil %Ordere d By: Melia Mantilla on 07-25-2024 Eosinophils/100 WBC (Bld) 0.7 % Normal . [facility] Comment on above: Performed By: #### C BC ####[address] Automated eosinophil countOr dered By: Melia Mantilla on 07-25-2024 Eosinophils (Bld) [#/Vol] 0.0 10*3/uL Normal 0.0-0.45 [facility] Comment on above: Performed By: #### C BC ####[address] Automated monocyte %Ordered By: Melia Mantilla on 07-25-2024 Monocytes/100 WBC (Bld) 7.2 % Normal . [facility] Comment on above: Performed By: #### C BC ####[address] Automated neutrophil %Ordere d By: Melia Mantilla on 07-25-2024 Neutrophils/100 WBC (Bld) 56.4 % Normal . [facility] Comment on above: Performed By: #### C BC ####[address] Basophils Auto (Bld) [#/Vol] Ordered By: Melia Mantilla on 07-25-2024 Basophils (Bld) [#/Vol] Automated basophil count 0.0-0.2 [facility] Basophils/100 WBC Auto (Bld) Ordered By: Emlia Annalee on 07-25-2024 Basophils/100 WBC (Bld) Automated basophil % . [facility] Bilirubin.total [Mass/volume ] in Serum or PlasmaOrdered By: Melia Mantilla on 07-25-2024 Bilirubin [Mass/Vol] 0.4 mg/dL Normal 0.3-1.[address] [facility] Comment on above: Performed By: #### C MP, MG ####[address] Bilirubin [Mass/Vol] Bilirubin.total [Mass/volume] in Serum or Plasma 0.3-1.0 [facility] Calcium [Mass/volume] in Ser um or PlasmaOrdered By: Melia Mantilla on 07-25-2024 Calcium [Mass/Vol] 9.7 mg/dL Normal 8.6-10.3 [facility] Comment on above: Performed By: #### C MP, MG ####[address] Calcium [Mass/Vol] Calcium [Mass/volume ] in Serum or Plasma 8.6-10.3 [facility] Carbon dioxide, total [Moles /volume] in Serum or PlasmaOrdered By: Melia Mantilla on 07-25-2024 CO2 [Moles/Vol] 31.2 mmol/L High 21.0-31.0 [facility] Comment on above: Performed By: #### C MP, MG ####[address] CO2 [Moles/Vol] Carbon dioxide, tota l [Moles/volume] in Serum or Plasma High 21.0-31.0 [facility] Chloride [Moles/volume] in [place] or PlasmaOrdered By: Melia Mantilla on 07-25-2024 Chloride [Moles/Vol] 108 mmol/L High 98-[address] [facility] Comment on above: Performed By: #### C MP, MG ####[place] [id number] [facility] Chloride [Moles/Vol] Chloride [Moles/vol ume] in Serum or Plasma High 98-107 [facility] Complete Blood Count Auto Di ffon 07-25-2024 Mean Corpuscular HGB Conc 33.8 g/dL Normal 32.0-35.0 [facility] Comment on above: Performed By: #### C BC ####[place] [id number] [facility] NRBC% 0.1 /100{WBC} Normal 0-0.5 [facility] Comment on above: Performed By: #### C BC ####[place] [id number] [facility] Comprehensive Metabolic Pane emigdio 07-25-2024 Albumin [Mass/Vol] 4.4 g/dL Normal 3.5-5.7 [facility] Comment on above: Performed By: #### C MP, MG ####[place] [id number] [facility] GFR/1.73 sq M.predicted MDRD (S/P/Bld) [Vol rate/Area] mL/min/{1.73_m2} Normal [facility] Comment on above: Performed By: #### C MP, MG ####[place] [id number] Creatinine [Mass/volume] in Serum or PlasmaOrdered By: Melia Mantilal on 07-25-2024 Creatinine [Mass/Vol] 0.81 mg/dL Normal 0.60-1.20 [facility] Comment on above: Performed By: #### C MP, MG ####[address] Creatinine [Mass/Vol] Creatinine [Mass/v olume] in Serum or Plasma 0.60-1.20 [facility] Eosinophils Auto (Bld) [#/Vo l]Ordered By: Melia Mantilla on 07-25-2024 Eosinophils (Bld) [#/Vol] Automated eosinophil count 0.0-0.45 [facility] Eosinophils/100 WBC Auto (Bl d)Ordered By: Melia Mantilla on 07-25-2024 Eosinophils/100 WBC (Bld) Automated eosinophil % . [facility] Erythrocyte distribution wid th Auto (RBC) [Ratio]Ordered By: Melia Mantilla on 07-25-2024 Erythrocyte distribution width (RBC) [Ratio] Erythrocyte distribution width [Ratio] by Automated count 11.9-15.3 [facility] Erythrocyte distribution wid th [Ratio] by Automated countOrdered By: Melia Mantilla on 07-25-2024 Erythrocyte distribution width (RBC) [Ratio] 13.8 % Normal 11.9-15.3 [facility] Comment on above: Performed By: #### C BC ####[place] [id number] [facility] Erythrocytes [#/volume] in B lood by Automated countOrdered By: Melia Mantilla on 07-25-2024 RBC (Bld) [#/Vol] 4.85 10*6/uL Normal 3.60-5.00 [facility] Comment on above: Performed By: #### C BC ####[address] Globulin Calc (S) [Mass/Vol] Ordered By: Melia Mantilla on 07-25-2024 Globulin (S) [Mass/Vol] Serum globulin measurement by calculation (mass/volume) [facility] Glucose [Mass/volume] in Ser um or PlasmaOrdered By: Melia Mantilla on 07-25-2024 Glucose [Mass/Vol] 91 mg/dL Normal 70-100 [facility] Comment on above: ADA recommended refe rence rangeRandom Glucose Reference Range is dependent on time and content of last meal. Glucose of more than 200 mg/dL in a nonstressed, ambulatory subject supports the diagnosis of Diabetes Mellitus. Result Comment: [place] Glucose Reference Range is dependent on time and content of last meal. Glucose of more than 200 mg/dL in a nonstressed, ambulatory subject supports the diagnosis of Diabetes Mellitus. ADA recommended reference range Performed By: #### C MP, MG ####[facility] [id number] [place] [address] Glucose [Mass/Vol] Glucose [Mass/volume ] in Serum or Plasma 70-100 [facility] Comment on above: ADA recommended refe rence rangeRandom Glucose Reference Range is dependent on time and content of last meal. Glucose of more than 200 mg/dL in a nonstressed, ambulatory subject supports the diagnosis of Diabetes Mellitus. Hematocrit Auto (Bld) [Volum e fraction]Ordered By: Melia Mantilla on 07-25-2024 Hematocrit (Bld) [Volume fraction] Hematocrit [Volume Fraction] of Blood by Automated count 34.0-46.4 [facility] Hematocrit [Volume Fraction] of Blood by Automated countOrdered By: Melia Mantilla on 07-25-2024 Hematocrit (Bld) [Volume fraction] 41.7 % Normal 34.0-46.4 [facility] Comment on above: Performed By: #### C BC ####[address] Hemoglobin [Mass/volume] in BloodOrdered By: Melia Mantilla on 07-25-2024 Hemoglobin (Bld) [Mass/Vol] 14.1 g/dL Normal 11.8-15.4 [facility] Comment on above: Performed By: #### C BC ####[address] [place] [address] [facility] Hemoglobin (Bld) [Mass/Vol] Hemoglobin [Mass/volume] in Blood 11.8-15.4 [facility] Leukocytes [#/volume] correc nicole for nucleated erythrocytes in Blood by Automated counOrdered By: Melia Mantilla on 07-25-2024 WBC corrected for nucl RBC Auto (Bld) [#/Vol] 6.7 10*3/uL 3.8-11.6 [facility] WBC corrected for nucl RBC Auto (Bld) [#/Vol] Leukocytes [#/volume] corrected for nucleated erythrocytes in Blood by Automated coun 3.8-11.6 [facility] Leukocytes [#/volume] in Blo od by Automated countOrdered By: Melia Mantlila on 07-25-2024 WBC (Bld) [#/Vol] 6.7 10*3/uL Normal 3.8-11.6 [facility] Comment on above: Performed By: #### C BC ####[facility] [id number] Lymphocytes Auto (Bld) [#/Vo l]Ordered By: Melia Mantilla on 07-25-2024 Lymphocytes (Bld) [#/Vol] Lymphocytes [#/volume] in Blood by Automated count 1.00-4.8 [facility] Lymphocytes [#/volume] in Bl ood by Automated countOrdered By: Melia Mantilla on 07-25-2024 Lymphocytes (Bld) [#/Vol] 2.3 10*3/uL Normal 1.00-4.8 [facility] Comment on above: Performed By: #### C BC ####[facility] [facility] [id number] [facility] Lymphocytes/100 WBC Auto (Bl d)Ordered By: Melia Mantilla on 07-25-2024 Lymphocytes/100 WBC (Bld) Lymphocytes/100 leukocytes in Blood by Automated count . [facility] Lymphocytes/100 leukocytes i n Blood by Automated countOrdered By: Melia Mantilla on 07-25-2024 Lymphocytes/100 WBC (Bld) 35.2 % Normal . [facility] Comment on above: Performed By: #### C BC ####[id number] [place] [id number] [facility] MCH Auto (RBC) [Entitic mass ]Ordered By: Melia Mantilla on 07-25-2024 MCH (RBC) [Entitic mass] MCH [Entitic ma ss] by Automated count 24.7-34.3 [facility] MCH [Entitic mass] by Automa nicole countOrdered By: Melia Mantilla on 07-25-2024 MCH (RBC) [Entitic mass] 29.1 pg Normal 24.7-34.3 [facility] Comment on above: Performed By: #### C BC ####[place] [id number] [facility] MCHC Auto (RBC) [Mass/Vol]Or dered By: Melia Mantilla on 07-25-2024 MCHC (RBC) [Mass/Vol] 33.8 g/dL 32.0-35.0 [facility] MCHC (RBC) [Mass/Vol] MCHC [Mass/volume] by Automated count 32.0-35.0 [facility] MCV Auto (RBC) [Entitic vol] Ordered By: Melia Mantilla on 07-25-2024 MCV (RBC) [Entitic vol] MCV [Entitic vol ume] by Automated count 80-100 [facility] MCV [Entitic volume] by Auto mated countOrdered By: Melia Mantilla on 07-25-2024 MCV (RBC) [Entitic vol] 86.1 fL Normal 80-100 [facility] Comment on above: Performed By: #### C BC ####[place] [id number] [facility] Magnesium [Mass/volume] in [place] or PlasmaOrdered By: Melia Mantilla on 07-25-2024 Magnesium [Mass/Vol] 1.9 mg/dL Normal 1.9-2.[address] [facility] Comment on above: Result Comment: PERF ORMED BY: [facility] [address] [place] [address] PATHOLOGIST H[employer]HER EDUCATION ADMINISTRATOR BORIS ELIZABETH M.D. Performed By: #### C MP, MG ####[id number] [place] [address] [facility] Magnesium [Mass/Vol] Magnesium [Mass/vol ume] in Serum or Plasma 1.9-2.7 [facility] Monocytes Auto (Bld) [#/Vol] Ordered By: Melia Mantilla on 07-25-2024 Monocytes (Bld) [#/Vol] Automated blood monocyte count 0.0-0.8 [facility] Monocytes/100 WBC Auto (Bld) Ordered By: Melia Mantilla on 07-25-2024 Monocytes/100 WBC (Bld) Automated monocyte % . [facility] Neutrophils Auto (Bld) [#/Vo l]Ordered By: Melia Mantilla on 07-25-2024 Neutrophils (Bld) [#/Vol] Neutrophils [#/volume] in Blood by Automated count 1.8-7.7 [facility] Neutrophils [#/volume] in Bl ood by Automated countOrdered By: Melia Mantilla on 07-25-2024 Neutrophils (Bld) [#/Vol] 3.8 10*3/uL Normal 1.8-7.7 [facility] Comment on above: Performed By: #### C BC ####[facility] [id number] [place] [address] [facility] Neutrophils/100 WBC Auto (Bl d)Ordered By: Melia Mantilla on 07-25-2024 Neutrophils/100 WBC (Bld) Automated neutrophil % . [facility] No Panel InformationOrdered By: Melia Mantilla on 07-25-2024 Estimated GFR (CKD-EPI) > 60.0 mL/Min [facility] Creatinine Clearance (Chem N/A [facility] Nucleated erythrocytes [Pres ence] in Blood by Automated countOrdered By: Melia Mantilla on 07-25-2024 Nucleated RBC Auto Ql (Bld) 0.1 /100{WBC} 0-0.5 [facility] Nucleated RBC Auto Ql (Bld) Nucleated erythrocytes [Presence] in Blood by Automated count 0-0.5 [facility] Platelet mean volume Auto (B ld) [Entitic vol]Ordered By: Melia Mantilla on 07-25-2024 Platelet mean volume (Bld) [Entitic vol] Platelet mean volume [Entitic volume] in Blood by Automated count 6.3-10.7 [facility] Platelet mean volume [Entiti c volume] in Blood by Automated countOrdered By: Melia Mantilla on 07-25-2024 Platelet mean volume (Bld) [Entitic vol] 7.8 fL Normal 6.3-10.7 [facility] Comment on above: Performed By: #### C BC ####[place] [id number] [facility] Platelets Auto (Bld) [#/Vol] Ordered By: Melia Mantilla on 07-25-2024 Platelets (Bld) [#/Vol] Platelets [#/vol ume] in Blood by Automated count 150-450 [facility] Platelets [#/volume] in Bloo d by Automated countOrdered By: Melia Mantilla on 07-25-2024 Platelets (Bld) [#/Vol] 280 10*3/uL Normal 150-450 [facility] Comment on above: Performed By: #### C BC ####[place] [id number] [facility] Potassium [Moles/volume] in Serum or PlasmaOrdered By: Melia Mantilla on 07-25-2024 Potassium [Moles/Vol] 4.1 mmol/L Normal 3.5-5.1 [facility] Comment on above: Performed By: #### C MP, MG ####[place] [id number] [facility] Potassium [Moles/Vol] Potassium [Moles/v olume] in Serum or Plasma 3.5-5.1 [facility] Protein [Mass/volume] in Ser um or PlasmaOrdered By: Melia Mantilla on 07-25-2024 Protein [Mass/Vol] 6.5 g/dL Normal 6.4-8.9 [facility] Comment on above: Performed By: #### C MP, MG ####[place] [id number] [facility] Protein [Mass/Vol] Protein [Mass/volume ] in Serum or Plasma 6.4-8.9 [facility] RBC Auto (Bld) [#/Vol]Ordere d By: Melia Mantilla on 07-25-2024 RBC (Bld) [#/Vol] Erythrocytes [#/volu me] in Blood by Automated count 3.60-5.00 [facility] Serum globulin measurement b y calculation (mass/volume)Ordered By: Melia Mantilla on 07-25-2024 Globulin (S) [Mass/Vol] 2.1 g/dL Normal [facility] Comment on above: Performed By: #### C SUSAN, MG ####[address] Serum or plasma albumin/glob ulin mass ratioOrdered By: Melia Mantilla on 07-25-2024 Albumin/Globulin [Mass ratio] 2.1 {ratio} Normal [facility] Comment on above: Performed By: #### C SUSAN, MG ####[address] Albumin/Globulin [Mass ratio] Serum or plasma albumin/globulin mass ratio [facility] Serum or plasma anion gap de terminationOrdered By: Melia Mantilla on 07-25-2024 Anion gap [Moles/Vol] 7.9 mmol/L Normal 6.0-15.0 [facility] Comment on above: Performed By: #### C SUSAN, MG ####[address] Anion gap [Moles/Vol] Serum or plasma an ion gap determination 6.0-15.0 [facility] Sodium [Moles/volume] in Ser um or PlasmaOrdered By: Melia Mantilla on 07-25-2024 Sodium [Moles/Vol] 143 mmol/L Normal 136-145 [facility] Comment on above: Performed By: #### C MP, MG ####[address] Sodium [Moles/Vol] Sodium [Moles/volume ] in Serum or Plasma 136-145 [facility] Urea nitrogen [Mass/volume] in Serum or PlasmaOrdered By: Melia Mantilla on 07-25-2024 Urea nitrogen [Mass/Vol] 11 mg/dL Normal 7-25 [facility] Comment on above: Performed By: #### C MP, MG ####[facility] [id number] [place] [id number] [facility] Urea nitrogen [Mass/Vol] Urea nitrogen [Mass/volume] in Serum or Plasma 04-12 [facility] WBC Auto (Bld) [#/Vol]Ordere d By: Melia Mantilla on 07-25-2024 WBC (Bld) [#/Vol] Leukocytes [#/volume ] in Blood by Automated count 3.8-11.6 [facility] XR lumbar spine 2-3V*on XR lumbar spine 2-3V* [facility] [place] [address] XRay Report Signed Patient: Berenice Lopez MR#: [id number] 2 : 2005 Acct:[id number] Age/Sex: 18 / F ADM Date: 07/25/24 Loc: XD Room: Type: [facility] Attending Dr: Melia Mantilla SKY DIVER-C Copies to: Melia Mantilla CNP Ordering Provider: [...] Shepard Jr., D.OShayy07/25/2024 3:34 PM Dictation Location: [place] [address] Transcribed By: [facility] 07/25/24 153 Dictated By: Sea Shepard Jr, DO 07/25/24 153 Signed By: 07/25/24 153 Normal [facility] XR si jointson 07-25-2024 XR si joints [facility] [address] [address] XRay Report Signed Patient: Berenice Lopez MR#: [id number] 2 : 2005 Acct:[id number] Age/Sex: 18 / F ADM Date: 07/25/24 Loc: XD Room: Type: [facility] Attending Dr: Melia Mantilla SKY DIVER-C Copies to: Melia Mantilla CNP Ordering Provider: [...] findings. Impression dictated by: Sea Shepard Jr., D.OShayy07/25/2024 3:35 PM Dictation Location: [place] [address] Transcribed By: [facility] 07/25/24 1535 Dictated By: Sea Shepard Jr, DO 07/25/24 1534 Signed By: 07/25/24 1535 Normal [facility] ALL LDHon 11-03-2023 LDH [Catalytic activity/Vol] 129 U/L 81 - 234 U/L [facility] XR LSPINE MIN 4 VIEWSon 12-19 XR [...] JOY CARDOZA Date: 2023-01-10 11:59 Normal [facility] CBC AUTO DIFFon 11-12-2022 BASO # 0.0 103/ul Normal 0.0-0.1 [facility] Comment on above: Performed By: #### C BC #### [facility] [address] [place] [address] Dr. Hilda Harden Basophils/100 WBC (Bld) 0.3 % Normal 0.2-2.0 [facility] Comment on above: Performed By: #### C BC #### [facility] [address] [place] [address] Dr. Hilda Harden EO # 0.1 103/ul Normal 0.0-0.7 [facility] Comment on above: Performed By: #### C BC #### [facility] [address] [place] [address] Dr. Hilda Harden Eosinophils/100 WBC (Bld) 1.3 % Normal 0.9-7.0 [facility] Comment on above: Performed By: #### C BC #### [facility] [address] [place] [address] Dr. Hilda Harden Erythrocyte distribution width (RBC) [Ratio] 13.3 % Normal 11.0-15.0 [facility] Comment on above: Performed By: #### C BC #### [facility] [address] [place] [address] Dr. Hilda Harden Hematocrit (Bld) [Volume fraction] 40.9 % Normal 36.0-48.0 [facility] Comment on above: Performed By: #### C BC #### [facility] [address] [place] [address] Dr. Hilda Harden Hemoglobin (Bld) [Mass/Vol] 13.9 g/dL Normal 12.0-16.0 [facility] Comment on above: Performed By: #### C BC #### [facility] [address] [place] [address] Dr. Hilda Harden IG # 0.02 10e3/ul Normal 0.00-0.03 [facility] Comment on above: Performed By: #### C BC #### [facility] [address] [place] [address] Dr. Hilda Harden IG % 0.3 % Normal 0.0-0.5 [facility] Comment on above: Performed By: #### C BC #### [facility] [address] [place] [address] Dr. Hilda Harden LYMPH # 2.5 103/ul Normal 1.2-3.8 [facility] Comment on above: Performed By: #### C BC #### [facility] [address] [place] [address] Dr. Hilda Harden Lymphocytes/100 WBC (Bld) 41.4 % Normal 20.5-60.0 [facility] Comment on above: Performed By: #### C BC #### [facility] [address] [place] [address] Dr. Hilda Harden MANUAL DIFF REQ NO Normal [facility] Comment on above: Performed By: #### C BC #### [facility] [address] [place] [address] Dr. Hilda Harden MCH (RBC) [Entitic mass] 28.8 pg Normal 26.7-34.0 [facility] Comment on above: Performed By: #### C BC #### [facility] [address] [place] [address] Dr. Hilda Harden MCHC (RBC) [Mass/Vol] 34.0 g/dL Normal 29.9-35.2 [facility] Comment on above: Performed By: #### C BC #### [facility] [address] [place] [address] Dr. Hilda Harden MCV (RBC) [Entitic vol] 84.9 fL Normal 81.0-99.0 [facility] Comment on above: Performed By: #### C BC #### [facility] [address] [place] [address] Dr. Hilda Harden MONO # 0.4 103/ul Normal 0.3-0.8 [facility] Comment on above: Performed By: #### C BC #### [facility] [address] [place] [address] Dr. Hilda Harden Monocytes/100 WBC (Bld) 6.9 % Normal 1.7-12.0 [facility] Comment on above: Performed By: #### C BC #### [facility] [address] [place] [address] Dr. Hilda Harden NEUT # 3.0 103/ul Normal 1.4-6.5 [facility] Comment on above: Performed By: #### C BC #### [facility] [address] [address] [address] Hilda Harden Neutrophils/100 WBC (Bld) 49.8 % Normal 43.0-75.0 [facility] Comment on above: Performed By: #### C BC #### [facility] [address] [address] [address] Hilda Harden Platelet mean volume (Bld) [Entitic vol] 9.6 fL Normal 9.5-13.5 [facility] Comment on above: Performed By: #### C BC #### [facility] [address] [place] [address] Dr. Hilda Harden PLT 279 103/ul Normal 150-450 [facility] Comment on above: Performed By: #### C BC #### [facility] [address] [place] [address] Dr. Hilda Harden RBC 4.82 106/ul Normal 4.20-5.40 [facility] Comment on above: Performed By: #### C BC #### [facility] [address] [place] [address] Dr. Hilda Harden WBC 6.1 103/ul Normal 4.0-11.0 [facility] Comment on above: Performed By: #### C BC #### [facility] [address] [place] [address] Dr. Hilda Harden PREG QUANT HCGon 11-12-2022 HCG QUANT <1 Normal [facility] Comment on above: Performed By: #### C T/NGNA #### [facility] [address] [place] [address] Dr. Hilda Harden HCG RANGE SEE BELOW Normal [facility] Comment on above: Result Comment: 5-50 0.2-1 WEEK 50-500 1-2 WEEKS 100-5,000 2-3 WEEKS 500-10,000 3-4 WEEKS 1,000-50,000 4-5 WEEKS 10,000-100,000 5-6 WEEKS 15,000-200,000 6-8 WEEKS 10,000-100,000 2-3 MONTHS Performed By: #### C T/NGNA #### [facility] [address] [place], [place] [address] Dr. Hilda Harden AFP (TUMOR MARKER)on 023 AFP, Serum, Tumor Marker 4.9 ng/mL Critically high 0.0-4. 7 [facility] Comment on above: Result Comment: [employer] Electrochemiluminescence Immunoassay (ECLIA) . Values obtained with different assay methods or kits cannot be used interchangeably. Results cannot be interpreted as absolute evidence of the presence or absence of malignant disease. . This test is not interpretable in females. Performed By: #### A FP. #### [facility] [address] [address] [address] Hilda Harden CA 125on 10-20-2022 Cancer Antigen (CA) 125 34.1 U/mL Normal 0.0-38.1 [facility] Comment on above: Result Comment: [employer] Electrochemiluminescence Immunoassay (ECLIA) . Values obtained with different assay methods or kits cannot be used interchangeably. Results cannot be interpreted as absolute evidence of the presence or absence of malignant disease. Performed By: #### C A 125 #### [facility] [id number] Hilda Harden CEAon 10-20-2022 CEA 1.3 ng/mL Normal 0.0-4.7 [facility] Comment on above: Result Comment: Nons mokers <3.9 Smokers <5.6 . [facility] Electrochemiluminescence Immunoassay (ECLIA) . Values obtained with different assay methods or kits cannot be used interchangeably. Results cannot be interpreted as absolute evidence of the presence or absence of malignant disease. Performed By: #### C T/NGNA #### [facility] [address] [place], [place] [address] Dr. Hilda Harden HCG QUANT TUMOR MARKERon HCG QNT TUMOR MARKER <1 Normal [facility] Comment on above: Result Comment: Fema le [...] developed and its performance characteristics determined by [employer]. It has not been cleared or approved by the Food and Drug Administration for use as a tumor marker. . This test is not interpretable as a tumor marker in females. Performed By: #### H CGTMOR #### [facility] [address] [place], [place] [address] Dr. Hilda Harden LDHon 10-19-2022 LDH 140 U/L Normal 81-234 [facility] Comment on above: Performed By: #### L #### [facility] [address] [place], [place] [address] Dr. Hilda Harden US PELVIS AND TRANSVAGon [...] JOY CARDOZA Date: 2022-10-15 13:53 Normal [facility] DHEA SERUMon 10-10-2022 Dehydroepiandrosterone (DHEA) 640 ng/dL Critically high 40-491 [facility] Comment on above: Result Comment: Age [...] 89 Performed By: #### D EASTON. #### [facility] [address] [place] [address] Dr. Hilda Harden DHEA-SULFATEon 10-07-2022 DHEA-Sulfate 201.0 ug/dL Normal 110.0-433. 2 [facility] Comment on above: Performed By: #### C T/NGNA #### [facility] [address] [place] [address] Dr. Hilda Harden FSHon 10-07-2022 FSH 4.1 mIU/mL Normal [facility] Comment on above: Result Comment: Adul t Female: Follicular phase 3.5 - 12.5 Ovulation phase 4.7 - 21.5 Luteal phase 1.7 - 7.7 Postmenopausal 25.8 - 134.8 Performed By: #### C T/NGNA #### [facility] [address] [place] [address] Dr. Hilda Harden LUTEINIZING HORMONE (LH)on 0 10-07-2022 LH 7.9 mIU/mL Normal [facility] Comment on above: Result Comment: Adul t Female: Follicular phase 2.4 - 12.6 Ovulation phase 14.0 - 95.6 Luteal phase 1.0 - 11.4 Postmenopausal 7.7 - 58.5 Performed By: #### C BC #### [facility] [address] [place] [address] Dr. Hilda Harden CBC AUTO DIFFon 10-06-2022 BASO # 0.0 103/ul Normal 0.0-0.1 [facility] Comment on above: Performed By: #### C BC #### [facility] [address] [place] [address] Dr. Hilda Haredn Basophils/100 WBC (Bld) 0.3 % Normal 0.2-2.0 [facility] Comment on above: Performed By: #### C BC #### [facility] [address] [place] [address] Dr. Hilda Harden EO # 0.1 103/ul Normal 0.0-0.7 [facility] Comment on above: Performed By: #### C BC #### [facility] [address] [place] [address] Dr. Hilda Harden Eosinophils/100 WBC (Bld) 1.8 % Normal 0.9-7.0 [facility] Comment on above: Performed By: #### C BC #### [facility] [address] [place] [address] Dr. Hilda Harden Erythrocyte distribution width (RBC) [Ratio] 13.3 % Normal 11.0-15.0 [facility] Comment on above: Performed By: #### C BC #### [facility] [address] [place] [address] Dr. Hilda Harden Hematocrit (Bld) [Volume fraction] 39.9 % Normal 36.0-48.0 [facility] Comment on above: Performed By: #### C BC #### [facility] [address] [place] [address] Dr. Hilda Hardne Hemoglobin (Bld) [Mass/Vol] 13.1 g/dL Normal 12.0-16.0 [facility] Comment on above: Performed By: #### C BC #### [facility] [address] [place] [address] Dr. Hilda Harden IG # 0.02 10e3/ul Normal 0.00-0.03 [facility] Comment on above: Performed By: #### C BC #### [facility] [address] [place] [address] Dr. Hilda Harden IG % 0.3 % Normal 0.0-0.5 [facility] Comment on above: Performed By: #### C BC #### [facility] [address] [place] [address] Dr. Hilda Harden LYMPH # 2.1 103/ul Normal 1.2-3.8 [facility] Comment on above: Performed By: #### C BC #### [facility] [address] [place] [address] Dr. Hilda Harden Lymphocytes/100 WBC (Bld) 31.8 % Normal 20.5-60.0 [facility] Comment on above: Performed By: #### C BC #### [facility] [address] [place] [address] Dr. Hilda Harden MANUAL DIFF REQ NO Normal [facility] Comment on above: Performed By: #### C BC #### [facility] [address] [place] [address] Dr. Hilda Harden MCH (RBC) [Entitic mass] 27.8 pg Normal 26.7-34.0 [facility] Comment on above: Performed By: #### C BC #### [facility] [address] [place] [address] Dr. Hilda Harden MCHC (RBC) [Mass/Vol] 32.8 g/dL Normal 29.9-35.2 [facility] Comment on above: Performed By: #### C BC #### [facility] [address] [place] [address] Dr. Hilda Harden MCV (RBC) [Entitic vol] 84.5 fL Normal 81.0-99.0 [facility] Comment on above: Performed By: #### C BC #### [facility] [address] [place] [address] Dr. Hilda Harden MONO # 0.5 103/ul Normal 0.3-0.8 [facility] Comment on above: Performed By: #### C BC #### [facility] [address] [place] [address] Dr. Hilda Harden Monocytes/100 WBC (Bld) 7.8 % Normal 1.7-12.0 [facility] Comment on above: Performed By: #### C BC #### [facility] [address] [place] [address] [address] Hilda Harden NEUT # 3.8 103/ul Normal 1.4-6.5 [facility] Comment on above: Performed By: #### C BC #### [facility] [address] [place] [address] [address] Hilda Harden Neutrophils/100 WBC (Bld) 58.0 % Normal 43.0-75.0 [facility] Comment on above: Performed By: #### C BC #### [facility] [address] [place] [address] Dr. Hilda Harden Platelet mean volume (Bld) [Entitic vol] 9.7 fL Normal 9.5-13.5 [facility] Comment on above: Performed By: #### C BC #### [facility] [address] [place] [address] Dr. Hilda Harden PLT 266 103/ul Normal 150-450 [facility] Comment on above: Performed By: #### C BC #### [facility] [address] [place] [address] Dr. Hilda Harden RBC 4.72 106/ul Normal 4.20-5.40 [facility] Comment on above: Performed By: #### C BC #### [facility] [address] [place] [address] Dr. Hilda Harden WBC 6.6 103/ul Normal 4.0-11.0 [facility] Comment on above: Performed By: #### C BC #### [facility] [address] [place] [address] Dr. Hilda Harden FREE T4on 10-06-2022 Free T4 [Mass/Vol] 1.09 ng/dL Normal 0.78-1.34 [facility] Comment on above: Performed By: #### C T/NGNA #### [facility] [address] [place] [address] Dr. Hilda Harden GLYCOHEMOGLOBIN A1Con 2022 ADA RECOMMENDATION SEE BELOW Normal [facility] Comment on above: Result Comment: ADA RECOMMENDED LIMIT 4.0 - 6.0 ADA THERAPEUTIC TARGET < 7.0 ACTION SUGGESTED > 7.0 Performed By: #### A 1C #### [facility] [address] [place] [address] Dr. Hilda Harden Glucose [Mass/Vol] 100 mg/dL Normal [facility] Comment on above: Performed By: #### A 1C #### [facility] [address] [place] [address] Dr. Hilda Harden HbA1c (Bld) [Mass fraction] 5.1 % Normal 4.5-6.2 [facility] Comment on above: Performed By: #### A 1C #### [facility] [address] [place] [address] Dr. Hilda Harden TSHon 10-06-2022 TSH 1.199 uIU/mL Normal 0.516-4.13 0 [facility] Comment on above: Performed By: #### T SH #### [facility] [address] [place] [address] Dr. Hilda Harden CHLAMYDIA/GONOCOCCUS RON ( AB/URINE/PAPon 05-07-2022 Chlamydia trachomatis, RON Negative Normal Negative [facility] Comment on above: Performed By: #### C T/NGNA #### [facility] [address] [place] [address] Dr. Hilda Harden Neisseria gonorrhoeae, RON Negative Normal Negative [facility] Comment on above: Performed By: #### C T/NGNA #### [facility] [address] [place] [address] Dr. Hilda Harden VAGINITIS/VAGINOSIS DNA PROB Harinder 05-06-2022 Shannen species Negative Normal Negative [facility] Comment on above: Performed By: #### C BC #### [facility] [address] [place] [address] Dr. Hilda Harden Gardnerella vaginalis Positive Abnormal Negative [facility] Comment on above: Performed By: #### C BC #### [facility] [address] [place] [address] Dr. Hilda Harden Trichomonas vaginalis Negative Normal Negative [facility] Comment on above: Performed By: #### C BC #### [facility] [address] [place], [place] [address] Dr. Hilda Harden Basophils Auto (Bld) [#/Vol] Ordered By: Severo Lea on 02-07-2022 Basophils (Bld) [#/Vol] 0.0 10*3/uL 0.0-0.1 [facility] Basophils/100 WBC Auto (Bld) Ordered By: Severo Lea on 02-07-2022 Basophils/100 WBC (Bld) 0.6 % [facility] Bilirubin Test strip Ql (U)O rdered By: Severo Lea on 02-07-2022 Bilirubin Ql (U) Negative Negative [facility] Blood hemoglobin measurement (mass/volume)Ordered By: Severo Lea on 02-07-2022 Hemoglobin (Bld) [Mass/Vol] 13.8 g/dL 12.0-16.0 [facility] Blood leukocytes automated c ount (number/volume)Ordered By: Severo Lea on 02-07-2022 WBC (Bld) [#/Vol] 8.5 10*3/uL 4.5-13.5 [facility] Body fluid albumin measureme nt (mass/volume)Ordered By: Severo Lea on 02-07-2022 Albumin (Body fld) [Mass/Vol] 4.2 g/dL 3.2-5.5 [facility] Color Auto (U)Ordered By: Maren Lea on 02-07-2022 Color (U) Yellow Yellow [facility] Creatinine and Glomerular fi ltration rate.predicted panel (S/P/Bld)Ordered By: Severo eLa on 02-07-2022 Creatinine [Mass/Vol] 0.82 mg/dL 0.44-1.03 [facility] Eosinophils Auto (Bld) [#/Vo l]Ordered By: Severo Lea on 02-07-2022 Eosinophils (Bld) [#/Vol] 0.1 10*3/uL 0.0-0.7 [facility] Eosinophils/100 WBC Auto (Bl d)Ordered By: Severo Lea on 02-07-2022 Eosinophils/100 WBC (Bld) 0.7 % [facility] Erythrocyte distribution wid th Auto (RBC) [Ratio]Ordered By: Severo Lea on 02-07-2022 Erythrocyte distribution width (RBC) [Ratio] 14.2 % 11.9-15.3 [facility] Estimated glomerular filtrat ion rate (GFR) non- AmericanOrdered By: Severo Lea on 02-07-2022 GFR/1.73 sq M.predicted among non-blacks MDRD (S/P/Bld) [Vol rate/Area] > 60 mL/Min [facility] Globulin Calc (S) [Mass/Vol] Ordered By: Severo Lea on 02-07-2022 Globulin (S) [Mass/Vol] 2.4 g/dL [facility] HCG ( test) IA.rapi d Ql (U)Ordered By: Severo Lea on 02-07-2022 HCG ( test) Ql (U) Negative [facility] Hematocrit Auto (Bld) [Volum e fraction]Ordered By: Severo Lea on 02-07-2022 Hematocrit (Bld) [Volume fraction] 41.5 % 36.0-46.0 [facility] Ketones Auto test strip (U) [Mass/Vol]Ordered By: Severo Lea on 02-07-2022 Ketones (U) [Mass/Vol] Trace Negative Fi [facility] - Chemistry and C hemistry - challengeOrdered By: Severo Lea on 02-07-2022 Lipase [Catalytic activity/Vol] 53.0 U/L [facility] Laboratory - Hematology and Cell countsOrdered By: Severo Lea on 02-07-2022 Nucleated RBC/100 WBC (Bld) [Ratio] 0.0 % 0-0.5 [facility] Lymphocytes Auto (Bld) [#/Vo l]Ordered By: Severo Lea on 02-07-2022 Lymphocytes (Bld) [#/Vol] 2.0 10*3/uL 1.20-4.8 [facility] Lymphocytes/100 WBC Auto (Bl d)Ordered By: Severo Lea on 02-07-2022 Lymphocytes/100 WBC (Bld) 23.8 % [facility] MCH Auto (RBC) [Entitic mass ]Ordered By: Severo Lea on 02-07-2022 MCH (RBC) [Entitic mass] 28.6 pg 25.0-35.0 [facility] MCHC Auto (RBC) [Mass/Vol]Or dered By: Severo Lea on 02-07-2022 MCHC (RBC) [Mass/Vol] 33.3 g/dL 31.0-37.0 [facility] MCV Auto (RBC) [Entitic vol] Ordered By: Severo Lea on 02-07-2022 MCV (RBC) [Entitic vol] 85.8 fL 78-102 [facility] Monocytes Auto (Bld) [#/Vol] Ordered By: Severo Lea on 02-07-2022 Monocytes (Bld) [#/Vol] 0.6 10*3/uL 0.1-1.00 [facility] Monocytes/100 WBC Auto (Bld) Ordered By: Severo Lea on 02-07-2022 Monocytes/100 WBC (Bld) 7.6 % [facility] Neutrophils Auto (Bld) [#/Vo l]Ordered By: Severo Lea on 02-07-2022 Neutrophils (Bld) [#/Vol] 5.7 10*3/uL 1.2-7.7 [facility] Neutrophils/100 WBC Auto (Bl d)Ordered By: Severo Lea on 02-07-2022 Neutrophils/100 WBC (Bld) 67.3 % [facility] Nitrite Test strip Ql (U)Ord ered By: Severo Lea on 02-07-2022 Nitrite Ql (U) Negative Negative [facility] No Panel InformationOrdered By: Severo Lea on 02-07-2022 Estimated GFR () > 60 mL/Min [facility] Comment on above: GFR estimated refere nce range: According to KDOQI guidelines, <60 ml/min/1.73m2 is sufficient to diagnose a patient with chronic kidney disease. Pharmacy Creatinine Clearance (Chem 100.48 [facility] Platelet mean volume Auto (B ld) [Entitic vol]Ordered By: Severo Lea on 02-07-2022 Platelet mean volume (Bld) [Entitic vol] 8.6 fL 6.3-10.7 [facility] Platelets Auto (Bld) [#/Vol] Ordered By: Severo Lea on 02-07-2022 Platelets (Bld) [#/Vol] 304 10*3/uL 150-450 [facility] Protein Auto test strip (U) [Mass/Vol]Ordered By: Severo Lea on 02-07-2022 Protein (U) [Mass/Vol] Negative Negative [facility] Protein [Mass/volume] in Ser um or PlasmaOrdered By: Severo Lea on 02-07-2022 Protein [Mass/Vol] 6.6 g/dL 6.1-7.9 [facility] RBC Auto (Bld) [#/Vol]Ordere d By: Severo Lea on 02-07-2022 RBC (Bld) [#/Vol] 4.84 10*6/uL 4.10-5.10 [facility] Serum or plasma alanine guerra otransferase measurement without P-5'-P (enzymatic activiOrdered By: Severo Lea on 02-07-2022 ALT No additional P-5'-P [Catalytic activity/Vol] 14 U/L 10-60 [facility] Serum or plasma albumin/glob ulin mass ratioOrdered By: Severo Lea on 02-07-2022 Albumin/Globulin [Mass ratio] 1.8 {ratio} [facility] Serum or plasma alkaline wil sphatase measurement (enzymatic activity/volume)Ordered By: Severo Lea on 02-07-2022 ALP [Catalytic activity/Vol] 46 U/L 32-92 [facility] Serum or plasma amylase jamar urement (enzymatic activity/volume)Ordered By: Severo Lea on 02-07-2022 Amylase [Catalytic activity/Vol] 70 U/L 28-100 [facility] Serum or plasma aspartate am inotransferase measurement (enzymatic activity/volume)Ordered By: Severo Lea on 02-07-2022 AST [Catalytic activity/Vol] 15 U/L 10-42 [facility] Serum or plasma calcium jamar urement (mass/volume)Ordered By: Severo Lea on 02-07-2022 Calcium [Mass/Vol] 9.3 mg/dL 8.2-10.2 [facility] Serum or plasma chloride payton surement (moles/volume)Ordered By: Severo Lea on 02-07-2022 Chloride [Moles/Vol] 107 mmol/L 95-[address] [facility] Serum or plasma glucose jamar urement (mass/volume)Ordered By: Severo Lea on 02-07-2022 Glucose [Mass/Vol] 94 mg/dL 70-100 [facility] Comment on above: ADA recommended refe rence range Random Glucose Reference Range is dependent on time and content of last meal. Glucose of more than 200 mg/dL in a nonstressed, ambulatory subject supports the diagnosis of Diabetes Mellitus. Serum or plasma potassium me asurement (moles/volume)Ordered By: Severo Lea on 02-07-2022 Potassium [Moles/Vol] 4.2 mmol/L 3.5-5.1 [facility] Serum or plasma sodium measu rement (moles/volume)Ordered By: Severo Lae on 02-07-2022 Sodium [Moles/Vol] 140 mmol/L 136-146 [facility] Serum or plasma total biliru bin measurement (mass/volume)Ordered By: Severo Lea on 02-07-2022 Bilirubin [Mass/Vol] 0.5 mg/dL 0.3-1.[address] [facility] Serum or plasma total carbon dioxide measurement (moles/volume)Ordered By: Severo Lea on 02-07-2022 CO2 [Moles/Vol] 25.1 mmol/L 22.0-30.0 [facility] Serum or plasma urea nitroge n measurement (mass/volume)Ordered By: Severo Lea on 02-07-2022 Urea nitrogen [Mass/Vol] 11 mg/dL 06-11 [facility] Specific gravity Auto test s trip (U) [Rel density]Ordered By: Severo Lea on 02-07-2022 Specific gravity (U) [Rel density] 1.027 1.001-1.03 0 [facility] Urine clarity by refractomet ry automatedOrdered By: Severo Lea on 02-07-2022 Clarity Refractometry automated (U) Clear Clear [facility] Urine glucose measurement by automated test strip (mass/volume)Ordered By: Severo Lea on 02-07-2022 Glucose Auto test strip (U) [Mass/Vol] Normal mg/dL Normal [facility] Urine hemoglobin detection b y automated test stripOrdered By: Severo Lea on 02-07-2022 Hemoglobin Auto test strip Ql (U) Negative Negative [facility] Urine leukocyte esterase det ection by automated test stripOrdered By: Severo Lea on 02-07-2022 Leukocyte esterase Auto test strip Ql (U) Negative Negative [facility] Urobilinogen Auto test strip (U) [Mass/Vol]Ordered By: Severo Lea on 02-07-2022 Urobilinogen (U) [Mass/Vol] Normal mg/dL Normal [facility] pH Auto test strip (U)Ordere d By: Severo Lea on 02-07-2022 pH (U) 6.0 [pH] 5.0-9.0 [facility] COVID-19 SOFIAOrdered By: Juve Morris on 11-16-2021 SARS-CoV+SARS-CoV-2 (COVID-19) Ag IA.rapid Ql (Resp) Negative Negative [facility] Comment on above: This is a duplicate Ann SARS Antigen (DEMETRIUS) result to be used for statistical tracking purpose only. No Panel InformationOrdered By: Augustin Morris on 11-16-2021 SARS Antigen (LFIA) [facility] Vital Signs Date Time Vital Sign Value Performing Clinician Facility 12-20-2024 10:02-0400 Body mass index (BMI) [Ratio] 25.3 kg/m2 [employer] Work Phone: [facility] 12-20-2024 10:02-0400 Body weight 66.86 kg [employer] Work Phone: [facility] 12-20-2024 10:02-0400 Diastolic blood pressure 78 mm[Hg] [employer] Work Phone: [facility] 12-20-2024 10:02-0400 Systolic blood pressure 122 mm[Hg] [employer] Work Phone: [facility] 11-21-2024 13:12-0500 Body mass index (BMI) [Ratio] 26.33 kg/m2 Melia DODSON Work Phone: [facility] 11-21-2024 13:12-0500 Body weight 69.58 kg Melia DODSON Work Phone: [facility] 11-21-2024 13:12-0500 Diastolic blood pressure 80 mm[Hg] Melia DODSON Work Phone: [facility] 11-21-2024 13:12-0500 Systolic blood pressure 128 mm[Hg] Melia Stacy PA Work Phone: [facility] 10-29-2024 08:57-0500 Body height 162.56 cm Melia Warchol [employer] Work Phone: [facility] 10-29-2024 08:57-0500 Body mass index (BMI) [Ratio] 25.3 kg/m2 Melia Warchol [employer] Work Phone: [facility] 10-29-2024 08:57-0500 Body weight 67 kg Melia Warchol [employer] Work Phone: [facility] 10-22-2024 10:16-0500 Body mass index (BMI) [Ratio] 26.06 kg/m2 Melia Stacy PA Work Phone: [facility] 10-22-2024 10:16-0500 Body weight 68.86 kg Melia [place] PA Work Phone: [facility] 10-22-2024 10:16-0500 Diastolic blood pressure 80 mm[Hg] Melia Stacy PA Work Phone: [facility] 10-22-2024 10:16-0500 Systolic blood pressure 110 mm[Hg] Melia [place] PA Work Phone: [facility] 10-17-2024 22:42-0500 Diastolic blood pressure 95 mm[Hg] Melia Warchol [employer] Work Phone: [facility] 10-17-2024 22:42-0500 Heart rate 85 /min Melia Warchol [employer] Work Phone: [facility] 10-17-2024 22:42-0500 Respiratory rate 20 /min Melia Warchol [employer] Work Phone: [facility] 10-17-2024 22:42-0500 SaO2% (BldA) [Mass fraction] 100 % Melia Warchol [employer] Work Phone: [facility] 10-17-2024 22:42-0500 Systolic blood pressure 138 mm[Hg] Melia Warchol [employer] Work Phone: [facility] 10-17-2024 19:50-0500 Body height 162.56 cm Melia Warchol [employer] Work Phone: [facility] 10-17-2024 19:50-0500 Body temperature 97.5 [degF] Melia Warchol [employer] Work Phone: [facility] 10-17-2024 19:50-0500 Body weight 67.7 kg Melia Warchol [employer] Work Phone: [facility] 09-03-2024 10:32-0500 Body height 162.6 cm Melia Warchol [employer] Work Phone: [facility] 09-03-2024 10:32-0500 Body mass index (BMI) [Ratio] 26.02 kg/m2 Melia Warchol [employer] Work Phone: [facility] 09-03-2024 10:32-0500 Body temperature 97.2 [degF] Melia Warchol [employer] Work Phone: [facility] 09-03-2024 10:32-0500 Body weight 68.77 kg Melia Warchol [employer] Work Phone: [facility] 09-03-2024 10:32-0500 Diastolic blood pressure 64 mm[Hg] Melia Warchol [employer] Work Phone: [facility] 09-03-2024 10:32-0500 Heart rate 87 /min Melia Warchol [employer] Work Phone: [facility] 09-03-2024 10:32-0500 SaO2% (BldA) [Mass fraction] 99 % Melia Warchol [employer] Work Phone: [facility] 09-03-2024 10:32-0500 Systolic blood pressure 118 mm[Hg] Melia Warchol [employer] Work Phone: [facility] 07-27-2024 10:31-0500 Body height 163.8 cm Melia Warchol [employer] Work Phone: [facility] 07-27-2024 10:31-0500 Body mass index (BMI) [Ratio] 25.05 kg/m2 Melia Warchol [employer] Work Phone: [facility] 07-27-2024 10:31-0500 Body weight 67.22 kg Melia Warchol [employer] Work Phone: [facility] 07-27-2024 10:31-0500 Diastolic blood pressure 80 mm[Hg] Melia Warchol [employer] Work Phone: [facility] 07-27-2024 10:31-0500 Heart rate 90 /min Melia Warchol [employer] Work Phone: [facility] 07-27-2024 10:31-0500 Respiratory rate 18 /min Melia Warchol [employer] Work Phone: [facility] 07-27-2024 10:31-0500 SaO2% (BldA) [Mass fraction] 98 % Melia Warchol [employer] Work Phone: [facility] 07-27-2024 10:31-0500 Systolic blood pressure 136 mm[Hg] Melia Warchol [employer] Work Phone: [facility] 06-18-2024 14:33-0400 Body height 163.8 cm Melia Warchol [employer] Work Phone: [facility] 06-18-2024 14:33-0400 Body mass index (BMI) [Ratio] 25.45 kg/m2 Melia Warchol [employer] Work Phone: [facility] 06-18-2024 14:33-0400 Body temperature 98.2 [degF] Melia Warchol [employer] Work Phone: [facility] 06-18-2024 14:33-0400 Body weight 68.31 kg Melia Warchol [employer] Work Phone: [facility] 06-18-2024 14:33-0400 Diastolic blood pressure 80 mm[Hg] Melia Warchol [employer] Work Phone: [facility] 06-18-2024 14:33-0400 Heart rate 87 /min Melia Warchol [employer] Work Phone: [facility] 06-18-2024 14:33-0400 Respiratory rate 18 /min Melia Mantilla [employer] Work Phone: [facility] 06-18-2024 14:33-0400 SaO2% (BldA) [Mass fraction] 100 % Melia Mantilla [employer] Work Phone: [facility] 06-18-2024 14:33-0400 Systolic blood pressure 138 mm[Hg] Melia Mantilla [employer] Work Phone: [facility] 02-07-2022 20:47-0400 Body height 161.29 cm MD Joe Rosenberg Work Phone: [facility] 02-07-2022 20:47-0400 Body mass index (BMI) [Percentile] Per age and sex 79.7 % MD Joe Rosenberg Work Phone: [facility] 02-07-2022 20:47-0400 Body mass index (BMI) [Ratio] 24.7 kg/m2 MD Joe Rosenberg Work Phone: [facility] 02-07-2022 20:47-0400 Body weight 64.41 kg MD Joe Rosenberg Work Phone: [facility] 02-07-2022 20:46-0400 Body temperature 98.6 [degF] MD Jeo Rosenberg Work Phone: [facility] 02-07-2022 20:46-0400 Diastolic blood pressure 84 mm[Hg] MD Joe Rosenberg Work Phone: [facility] 02-07-2022 20:46-0400 Heart rate 95 /min MD Joe Rosenberg Work Phone: [facility] 02-07-2022 20:46-0400 Respiratory rate 18 /min MD Joe Rosenberg Work Phone: [facility] 02-07-2022 20:46-0400 SaO2% (BldA) [Mass fraction] 100 % MD Joe Rosenberg Work Phone: [facility] 02-07-2022 20:46-7765 Systolic blood pressure 138 mm[Hg] MD Joe Rosenberg Work Phone: [facility] Encounters Encounter Date Encounter Type Care Provider Facility Start: 12-27-2024 End: 12-27-2024 Clinisync Result Encounter Curtis Sandra DO Work Phone: [facility] Unsolicited Start: 12-27-2024 End: 12-27-2024 Clinisync Result Encounter Curtis Sandra DO Work Phone: [facility] Unsolicited Start: 12-20-2024 End: 12-20-2024 Bamboo flowsheet Curtis Sandra DO Work Phone: [facility] Start: 12-20-2024 End: 12-20-2024 Bamboo flowsheet Curtis Sandra DO Work Phone: [facility] Start: 12-20-2024 End: 12-20-2024 Clinisync Result Encounter Curits Sandra DO Work Phone: [facility] [...] End: 12-12-2024 Patient encounter procedure Melia Mantilla [employer] Work Phone: [facility] [address] Cl[facility] Work Phone: Start: 12-12-2024 End: 12-12-2024 ambulatory Melia Mantilla [employer] Work Phone: [facility] Work Phone: Start: 11-22-2024 End: 11-22-2024 Telephone encounter Melia Mantilla [employer] Work Phone: [facility] Start: 11-21-2024 [...] 11-20-2024 End: 11-20-2024 Patient encounter procedure Melia Mantilla [employer] Work Phone: [facility] [address] [place] Work Phone: Start: 11-20-2024 End: 11-20-2024 ambulatory Meila Mantilla [employer] Work Phone: [facility] Work Phone: Start: 11-09-2024 End: 11-12-2024 Telephone encounter Melia Mantilla [employer] Work Phone: [facility] Start: 11-06-2024 End: 11-06-2024 ambulatory MELIA POTTER Not Available Start: 10-29-2024 End: 10-29-2024 Patient encounter procedure Melia Annalee [employer] Work Phone: [facility] Work Phone: Start: 10-22-2024 End: 10-22-2024 Office outpatient visit 15 minutes Melia Potter PA Work Phone: [facility] Comment on above: Abdominal cramping; Cyst of left ovary Start: 10-22-2024 End: 10-22-2024 ambulatory MELIA POTTER Not Available Start: 10-17-2024 End: 10-18-2024 Emergency department patient visit Melia Najerachol [employer] Work Phone: [facility]Emergency [facility] Work Phone: Start: 10-15-2024 End: 10-15-2024 Telephone encounter Melia Najerachol [employer] Work Phone: [facility] Start: 09-24-2024 End: 09-24-2024 Telephone encounter Melia Mantilla [employer] Work Phone: [facility] Start: 09-03-2024 End: 09-03-2024 Bamboo flowsheet Melia Najerachol [employer] Work Phone: [facility] Start: 09-03-2024 End: 09-03-2024 Bamboo flowsheet Melia Najerachol [employer] Work Phone: [facility] Start: 09-03-2024 End: 09-03-2024 ambulatory MELIA MANTILLA Not Available Start: 09-03-2024 End: 09-03-2024 Office outpatient visit 25 minutes Melia Najerachol [employer] Work Phone: [facility] Comment on above: Chronic midline low back pain without sciatica (Primary Dx); Lumbar radiculopathy Start: 08-28-2024 End: 08-28-2024 Telephone encounter Melia Najerachol [employer] Work Phone: [facility] Start: 08-23-2024 End: 08-23-2024 ambulatory Melia Igorchol [employer] Work Phone: [facility] Work Phone: Start: 08-23-2024 End: 08-23-2024 Discharged Recurring Melia Igorchol [employer] Work Phone: [facility] [facility] Start: 07-27-2024 End: 07-27-2024 Bamboo flowsheet Melia Mantilla [employer] Work Phone: [facility] Start: 07-27-2024 End: 07-27-2024 Bamboo flowsheet Melia Mantilla [employer] Work Phone: [facility] Start: 07-27-2024 End: 07-27-2024 ambulatory MELIA NAJERACHOL Not Available Start: 07-27-2024 End: 07-27-2024 Office outpatient visit 25 minutes Melia Mantilla [employer] Work Phone: [facility] Comment on above: 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); Person consulting for explanation of examination or test finding; Bilateral sacroiliitis (CMS/HCC) Start: 07-25-2024 End: 07-25-2024 Patient encounter procedure [employer] Melia Mantilla Work Phone: [facility] Work Phone: Start: 07-25-2024 End: 07-25-2024 ambulatory [employer] Melia Mantilla Work Phone: [facility] Work Phone: Start: 07-25-2024 Encounter for genera l adult medical examination without abnormal findings Melia Annalee [facility] Start: 06-18-2024 End: 06-18-2024 Office outpatient visit 25 minutes Melia Mantilla [employer] Work Phone: [facility] Comment on above: Adult general medica l examination (Primary Dx); Muscle cramping; Bilateral sacroiliitis (CMS/HCC); Left lumbar radiculopathy; 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-sided sciatica Start: 06-18-2024 End: 06-18-2024 Patient encounter status Melia Mantilla [employer] Work Phone: [facility] Start: 06-18-2024 End: 06-18-2024 ambulatory MELIA ANNALEE Not Available Start: 06-18-2024 End: 06-18-2024 Bamboo flowsheet Melia Mantilla [employer] Work Phone: [facility] Start: 06-18-2024 End: 06-18-2024 Bamboo flowsheet Melia Mantilla [employer] Work Phone: [facility] Start: 11-04-2023 End: 11-04-2023 ambulatory MD Joe Rosenberg Work Phone: [facility] Work Phone: Start: 11-04-2023 End: 11-04-2023 Departed Referred MD Joe Rosenberg Work Phone: [facility] Start: 11-03-2023 Clinisync Result Encounter Curtis Flores DO Work Phone: [facility] Unsolicited Start: 11-03-2023 Clinisync Result Encounter Curtis Flores DO Work Phone: [facility] Unsolicited Start: 01-10-2023 End: 01-11-[address] JOE ROSENBERG . Facility:[facility] Start: 11-12-2022 End: 11-12-[address] CURTIS FLORES . Facility:[facility] Start: 11-05-2022 Encounter for other preprocedural examination DR CURTIS FLORES . [facility] Start: 11-01-2022 End: 11-02-[address] [...] patient visit MD Joe Rosenberg Work Phone: [facility]-Emergency Room Start: 11-16-2021 End: 11-16-2021 Patient encounter procedure MD Joe Rosenberg Work Phone: [facility] Sw[facility] Procedures Date Procedure Procedure Detail Performing Clinician Start: 12-27-2024 ALL CBC WITH AUTO DIFF Curtis Sandra DO Work Phone: Start: 12-20-2024 ALL [facility] Curtis Fazi o DO Work Phone: Start: 12-18-2024 US PELVIS W/ TRANSVAGINAL Melia DODSON Work Phone: Start: 12-12-2024 MR lumbar spine wo con Melia Mantilla [employer] Work Phone: Start: 11-20-2024 Carcinoembryonic antigen cea Melia Mantilla Comment on above: Result Comment: Seri al tumor marker results determined by assays using different manufacturers or methods may not be comparable. [facility] supervisor fabrication and method: Fancy DXI, 2 SITE IMMUNOENZYMATIC ?SANDWICH? ASSAY. PERFORMED BY: [place] [address] PATHOLOGIST HIGHER EDUCATION ADMINISTRATOR CORNELIUS MARK M.D. Performed By: #### C EA, HCGQNT #### [place] [address] [place] #### AFPTM, CA125, LDI #### [facility] , Start: 10-22-2024 Urine test visual color cmprsn meths Melia DODSON Work Phone: Start: 07-25-2024 Plain X-ray of sacro iliac joint [employer] Melia Mantilla Work Phone: Start: 07-25-2024 X-ray of lumbar spin e, two or three views [employer] Melia Mantilla Work Phone: Start: 11-03-2023 ALL [facility] Curtis Fazi o DO Work Phone: Start: 11-16-2021 SARS Antigen (LFIA) MD Joe Rosenberg Work Phone: Plan of Treatment Date Care Activity Detail Author Start: 05-20-2025 Influenza vaccination Influenz a Vaccine (Season Ended) [facility] Start: 02-05-2025 End: 02-05-2025 Professional / ancillary services management 02/05/2025 1:00 PM EDT Ancillary Procedure [facility] [address] [place] [id number] [facility] Start: 01-15-2025 End: 01-15-2025 Patient encounter procedure 01/15/2025 2:40 PM EDT Office Visit [facility] [address] [place] [address] Curtis Flores, [address] [place], [place] [id number] [facility] Start: 12-25-2024 Influenza vaccination Influenza Vacc ine (#1) [facility] Comment on above: Postponed from 05/20 (Patient Refused) Start: 12-20-2024 End: 12-20-2025 AFP tumor marker AFP tumor marker Lab Routine Complex ovarian cyst Expected: 12/20/2024, Expires: 12/20/2025 [facility] Comment on above: Expected: 12/20/2024 , Expires: 12/20/2025 Start: 12-20-2024 End: 12-20-2025 CA 125 CA 125 Lab Routine Complex ovarian cyst Expected: 12/20/2024, Expires: 12/20/2025 [facility] Comment on above: Expected: 12/20/2024 , Expires: 12/20/2025 Start: 12-20-2024 End: 12-20-2025 Carcinoembryonic Ag [Mass/volume] in Serum or Plasma CEA Lab Routine Complex ovarian cyst Expected: 12/20/2024, Expires: 12/20/2025 [facility] Comment on above: Expected: 12/20/2024 , Expires: 12/20/2025 Start: 12-20-2024 End: 12-20-2025 HCG, tumor marker HCG, tumor marker Lab Routine Complex ovarian cyst Expected: 12/20/2024 (Approximate), Expires: 12/20/2025 [facility] Comment on above: Expected: 12/20/2024 (Approximate), Expires: 12/20/2025 Start: 12-20-2024 End: 12-20-2025 Lactate dehydrogenase, isoenzymes Lactate dehydrogenase, isoenzymes Lab Routine Complex ovarian cyst Expected: 12/20/2024, Expires: 12/20/2025 [facility] Work Phone: Comment on above: Expected: 12/20/2024 , Expires: 12/20/2025 Start: 12-20-2024 End: 12-20-2025 US Pelvis US Pelvis w/ TV Imaging Routine Complex ovarian cyst Expected: 12/20/2024, Expires: 12/20/2025 [facility] Comment on above: Expected: 12/20/2024 , Expires: 12/20/2025 Start: 12-20-2024 End: 12-20-2024 Patient encounter procedure 12/20/2024 9:40 AM EDT Office Visit [facility] [address] [place] [phone] Curtis Flores, DO [address], [place] [phone] [facility] Start: 12-18-2024 End: 12-18-2024 Professional / ancillary services management 12/18/2024 8:00 AM EDT Ancillary Procedure [facility] [address] [facility] [phone] [facility] Start: 11-21-2024 End: 11-21-2025 US Pelvis US Pelvis w/ TV Imaging Routine Complex ovarian cyst Expected: 11/21/2024, Expires: 11/21/2025 [facility] Comment on above: Expected: 11/21/2024 , Expires: 11/21/2025 Start: 11-21-2024 End: 11-21-2024 Patient encounter procedure [facility] Comment on above: Arrived Start: 11-20-2024 [facility] Start: 11-12-2024 End: 11-12-2025 MR Lumbar spine WO contrast MR lumbar spine wo contrast Imaging Routine 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-sided sciatica Left lumbar radiculopathy Expected: 11/12/2024, Expires: 11/12/2025 [facility] Work Phone: Comment on above: Expected: 11/12/2024 , Expires: 11/12/2025 Start: 11-06-2024 End: 11-06-2024 Professional / ancillary services management 11/06/2024 1:00 PM EST Ancillary Procedure [facility] [address] [place] [address] [facility] Start: 10-22-2024 End: 10-22-2025 US Pelvis US Pelvis w/ TV Imaging Routine Abdominal cramping Cyst of left ovary Expected: 10/22/2024, Expires: 10/22/2025 [facility] Work Phone: Comment on above: Expected: 10/22/2024 , Expires: 10/22/2025 Start: 09-21-2024 Influenza vaccination Influenza Vacc ine (#1) [facility] Comment on above: Postponed from 05/20 (Patient Refused) Start: 09-03-2024 End: 09-03-2024 Patient encounter procedure 09/03/2024 10:20 AM EST Office Visit [facility] [address] [place] [address] Melia Mantilla, SKY DIVER [address] [place] [address] [facility] Start: 07-02-2024 End: 07-02-2024 Patient encounter procedure 07/02/2024 2:40 PM EDT Office Visit [facility] [address] [place] [address] Melia Mantilla, SK[employer] DIVER [address] [place] [address] [facility] Start: 06-18-2024 End: 06-18-2024 Patient encounter procedure 06/18/2024 2:20 PM EDT Office Visit [facility] [address] [place] [address] Melia Mantilla, SKY DIVER [address] [place] [address] Arrived [facility] Comment on above: Arrived Start: 05-20-2024 Influenza vaccination Influenza Vacc ine (#1) [facility] CBC W Auto Different ial panel - Blood CBC auto differential Lab Routine Adult general medical examination Ordered: 06/18/2024 [facility] Comment on above: Ordered: 06/18/2024 Comprehensive metabo lic 2000 panel - Serum or Plasma Comprehensive metabolic panel Lab Routine Adult general medical examination Ordered: 06/18/2024 [facility] Comment on above: Ordered: 06/18/2024 Cytology Cervical or vaginal smear or scraping study Pap Smear Pathology and Cytology Routine Well woman exam with routine gynecological exam Ordered: 11/21/2024 [facility] [employer] Work Phone: Comment on above: Ordered: 11/21/2024 Magnesium [Mass/volu me] in Serum or Plasma Magnesium Lab Routine Muscle cramping Ordered: 06/18/2024 [facility] Comment on above: Ordered: 06/18/2024 MR Lumbar spine WO contrast MR lumbar spine wo contrast Imaging Routine Chronic midline low back pain without sciatica Lumbar radiculopathy Ordered: 09/03/2024 [facility] [employer] Work Phone: Comment on above: Ordered: 09/03/2024 Patient Education [facility] Work Phone: Patient referral [facility] Work Phone: XR Lumbar spine 2 or 3 Views XR lumbar spine 2 or 3 views Imaging Routine Left lumbar radiculopathy 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-sided sciatica Ordered: 06/18/2024 [facility] [employer] Work Phone: Comment on above: Ordered: 06/18/2024 XR Sacroiliac Joint 3 Views XR sacroiliac joints 3+ views Imaging Routine Left lumbar radiculopathy 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-sided sciatica Ordered: 06/18/2024 [facility] Comment on above: Ordered: 06/18/2024 Immunizations Immunization Date Immunization Notes Care Provider Olena serrano 06-22-2021 meningococcal oligosaccharide (groups A, C, Y and W-135) diphtheria toxoid conjugate vaccine (MCV4O) [facility] Work Phone: [facility] 05-04-2016 meningococcal polysaccharide (groups A, C, Y and W-135) diphtheria toxoid conjugate vaccine (MCV4P) [facility] Work Phone: [facility] 05-04-2016 tetanus toxoid, redu jimenez diphtheria toxoid, and acellular pertussis vaccine, adsorbed [facility] Work Phone: [facility] 03-06-2009 diphtheria, tetanus toxoids and acellular pertussis vaccine, unspecified formulation Melia Mantilla [employer] Work Phone: [facility] 03-06-2009 hepatitis A vaccine, pediatric/adolescent dosage, 2 dose schedule [facility] Work Phone: [facility] 03-06-2009 measles, mumps and r ubella virus vaccine [facility] Work Phone: [facility] 03-06-2009 poliovirus vaccine, inactivated [facility] Work Phone: [facility] 03-06-2009 varicella virus vaccine [facility] Work Phone: [facility] 01-06-2007 diphtheria, tetanus toxoids and acellular pertussis vaccine, unspecified formulation [facility] Work Phone: [facility] 01-06-2007 haemophilus influenz ae type b vaccine, PRP-T conjugate [facility] Work Phone: [facility] 01-06-2007 hepatitis A vaccine, pediatric/adolescent dosage, 2 dose schedule [facility] Work Phone: [facility] 01-06-2007 measles, mumps, rube lla, and varicella virus vaccine [facility] Work Phone: [facility] 01-06-2007 pneumococcal conjuga te vaccine, 7 valent Melia Warchol [employer] Work Phone: [facility] 05-22-2004 diphtheria, tetanus toxoids and acellular pertussis vaccine, unspecified formulation Melia Warchol [employer] Work Phone: [facility] 05-22-2004 haemophilus influenz ae type b vaccine, PRP-T conjugate Melia Warchol [employer] Work Phone: [facility] 05-22-2004 hepatitis B vaccine, pediatric or pediatric/adolescent dosage Melia Warchol [employer] Work Phone: [facility] 05-22-2004 pneumococcal conjuga te vaccine, 7 valent Melia Warchol [employer] Work Phone: [facility] 05-22-2004 poliovirus vaccine, inactivated Melia Warchol [employer] Work Phone: [facility] 03-05-2004 diphtheria, tetanus toxoids and acellular pertussis vaccine, unspecified formulation Melia Warchol [employer] Work Phone: [facility] 03-05-2004 haemophilus influenz ae type b vaccine, PRP-T conjugate Melia Warchol [employer] Work Phone: [facility] 03-05-2004 hepatitis B vaccine, pediatric or pediatric/adolescent dosage Melia Warchol [employer] Work Phone: [facility] 03-05-2004 pneumococcal conjuga te vaccine, 7 valent Melia Warchol [employer] Work Phone: [facility] 03-05-2004 poliovirus vaccine, inactivated Melia Warchol [employer] Work Phone: [facility] 2003 diphtheria, tetanus toxoids and acellular pertussis vaccine, unspecified formulation Melia Warchol [employer] Work Phone: [facility] 2003 haemophilus influenz ae type b vaccine, PRP-T conjugate Melia Warchol [employer] Work Phone: [facility] 2003 hepatitis B vaccine, pediatric or pediatric/adolescent dosage Melia Warchol [employer] Work Phone: [facility] 2003 poliovirus vaccine, inactivated Melia Warchol [employer] Work Phone: [facility] Payers Date Payer Category Payer Self-pay [id number] 2024 Medicaid (Managed Care) [facility] MEDICAID [id number] 2023 Medicaid [id number] 2003 Unknown [id number] 2.16.840.1.578864.3.579.2. 593 2003 Unknown [id number] 2.16.840.1.310720.3.579.2. 593 2003 Unknown [id number] 2.16.840.1.601021.3.579.2. 593 2003 Unknown [id number] 2.16.840.1.983188.3.579.2. 593 2003 Unknown [id number] 2.16.840.1.479583.3.579.2. 593 2003 Unknown [id number] 2.16.840.1.497970.3.579.2. 593 2003 Unknown [id number] 2.16.840.1.256959.3.579.2. 593 2003 Unknown [id number] 2.16.840.1.164596.3.579.2. 1259 2003 Unknown [id number] 2.16.840.1.928876.3.579.2. 1259 2003 Unknown [id number] 2.16.840.1.772843.3.579.2. 1259 2003 Unknown [id number] 2.16.840.1.375289.3.579.2. 1259 2003 Unknown [id number] 2.16.840.1.508277.3.579.2. 1259 2003 Unknown [id number] 2.16.840.1.600786.3.579.2. 1259 2003 Unknown [id number] 2.16.840.1.589546.3.579.2. 1259 1959 Medicaid [id number] Unknown [id number] 2.16.840.1.992647.3.579.2. 531 Unknown [id number] 2.16.840.1.745623.3.579.2. 531 Unknown [id number] 2.16.840.1.461463.3.579.2. 531 Unknown [id number] 2.16.840.1.499624.3.579.2. 531 Unknown [id number] 2.16.840.1.408573.3.579.2. 531 Social History Date Type Detail Facility Start: 02-07-2022 End: 10-04-2023 Tobacco smoking status TXIS Never smoked tobacco (finding) [facility] Start: 2003 Sex Assigned At Female F [facility] Start: 10-04-2023 Tobacco use and exposure [...] to any clubs or organizations such as baptism groups, unions, fraternal or athletic groups, or [...] Start: 10-16-2024 End: 12-13-2024 Sex Female (finding) [facility] Start: 10-17-2024 End: 10-17-2024 Tobacco smoking status NHIS Smoker (finding) [facility] NEGATED: Highlighted row [facility] Clinical Notes 11-12-2022 to 12-20-2024 Diandra Irizarry [...] nursing note reviewed. Exam conducted with a yarding and folding machine operator present. Vitals: Estimated body mass index is [...] Curtis Flores DO documented in this encounter [facility] 11-22-2024 Telephone encounter Note Form atting of this note might be different from the original. Sent [facility] 11-22-2024 Miscellaneous Notes Formattin g of this note might be different from the original. Sent documented in this encounter [facility] 11-21-2024 History of Presen t illness Narrative [...] nursing note reviewed. Exam conducted with a yarding and folding machine operator present. Vitals: Estimated body mass index is [...] of: IVORY Wills documented in this encounter [facility] 11-12-2024 Telephone encounter Note Form atting of this note might be different from the original. New order sent [facility] 11-12-2024 Miscellaneous Notes Formattin g of this note might be different from the original. New order sent Insurance denied MRI due to them wanting PT done first, patient completed PT as of 10/16/24 & Dr go office is wanting us to appeal the MRI we ordered- MRI for Lumbar documented in this encounter [facility] 11-09-2024 Telephone encounter Note Form atting of this note might be different from the original. Insurance denied MRI due to them wanting PT done first, patient completed PT as of 10/16/24 & Dr go office is wanting us to appeal the MRI we ordered- MRI for Lumbar [facility] 10-29-2024 Evaluation note Diagnosis Onset Date Resolution Chronic pain acute October 8:56am Other low back pain acute Febru boaz2024 8:56am Other spondylosis with radiculopathy, lumbosacral region acute October 8:56am [facility] Work Phone: 1(171) 486-115202-03-2025 History of Present illness Narrative* IVORY Wills [...] behalf of: IVORY Wills documented in this [facility]01-27-2025 Telephone encounter Note* Telephone Encounter - Melia Mantilla NP - 10/15/2024 1:29 PM EST MRI was denied. Patient states she is still having terrible pain in her back that seems to be worsening. Discussed pain management referral [id number] Miscellaneous Notes* Telephone Encounter - Melia Mantilla NP - 10/15/2024 1:29 PM EST MRI was denied. Patient states she is still having terrible pain in her back that seems to be worsening. Discussed pain management referral documented in this [facility]01-06-2025 Telephone encounter Note* Telephone Encounter - Melia Mantilla NP - 09/24/2024 5:41 PM EST Sent [id number] Miscellaneous Notes* Telephone Encounter - Melia Mantilla NP - 09/24/2024 5:41 PM EST Sent documented in this [facility]12-16-2024 History of Present illness Narrative* Melia Mantilla [...] scheduled follow-up review MRI. documented in this encounterH[facility] HospitalKqepxigizw26-02-2914 Instructions* Patient Instructions* Melia Mantilla NP - [...] use of controlled substances. documented in this encounterHannibal [facility] [id number] Telephone encounter Note* Telephone Encounter - Melia Mantilla NP - 08/28/2024 12:57 PM EST sent [facility] [id number] Miscellaneous Notes* Telephone Encounter - Melia Mantilla NP - 08/28/2024 12:57 PM EST sent documented in this encounterHannibal [facility] [id number] History of Present illness Narrative* Melia Mantilla [...] follow-up: back pain . documented in this [facility]11-08-2024 Instructions* Patient Instructions* Melia Mantilla NP - [...] use of controlled substances. documented in this [facility]09-30-2024 History of Present illness Narrative* Melia Mantilla NP - 06/18/2024 2:20 PM EDT ANNELIESE Lopez is a 18 y.o. female who [...] for Next scheduled follow-up. documented in this encounterHannibal [facility] [id number] Instructions* Patient Instructions* Melia Mantilla NP - [...] use of controlled substances. documented in this encounterHannibal Regional [id number] NotePROCEDURE: XR HIPS DANNIELLE 5V W PELVIS HISTORY: Pain in thoracic spine ; bilateral hip pain, right greater than left COMPARISON: None. FINDINGS: BONES:No fracture, acute abnormality, or significant arthropathy. SOFT TISSUES:No visible soft tissue swelling. EFFUSION:None visible. OTHER: Negative. IMPRESSION: 1. Normal examination. Electronically authenticated by: JOY CARDOZA Date: 2023-01-10 11:58[facility]02-24-2023 NoteOP Note OPERATION DATE: 11/12/2022 PROCEDURE: Diagnostic laparoscopy with left ovarian cystotomy with drainage of chocolate cyst with left ovarian cystectomy, lysis of adhesions and fulguration of endometriosis on the patient's right ovary. PREOPERATIVE DIAGNOSIS: Pelvic pain, suspect endometriosis; left ovarian cyst. POSTOPERATIVE DIAGNOSIS: Pelvic pain, suspect endometriosis; left ovarian cyst. ANESTHESIA: General. SURGEON: Curtis Folres D.O. PROFILE TRIMMER: KATHY Max URINE OUTPUT: Yellow and clear. [...] the regular diagnostic laparoscopy procedure only.) ?[id number] NoteOP Note OPERATION DATE: 11/12/2022 PROCEDURE: Diagnostic laparoscopy with left ovarian cystotomy with drainage of chocolate cyst with left ovarian cystectomy, lysis of adhesions and fulguration of endometriosis on the patient's right ovary. PREOPERATIVE DIAGNOSIS: Pelvic pain, suspect endometriosis; left ovarian cyst. POSTOPERATIVE DIAGNOSIS: Pelvic pain, suspect endometriosis; left ovarian cyst. ANESTHESIA: General. SURGEON: Curtis Flores D.O. PROFILE TRIMMER: KATHY Max URINE OUTPUT: Yellow and clear. [...] inserted the regular diagnostic laparoscopy procedure only.)[facility]Evaluation noteNo assessment information availableFostoria City Hospital Work Phone: Evaluation note* Diagnosis Chronic [...] do want you to follow-up with your doctor.[facility] Work Phone: Chief Complaint and Reason for [...] Active Severo Lea MD Emergency Provider Active Net Developer Contract Relationship Specialty Start Date End Date Joe Rosenberg MD [address] [place] [address] PCP - General Family Medicine 10/19/23 Team Status: Active Member Role Status Dates VON Wyatt Primary Care Provider Active Team Status: Inactive Member Role Status Dates SUSANA WyattC Primary Care Provide r, Attending Provider Active Start: July 25, 2024 End: July 25, 2024 Net Developer Contract Relationship Specialty Start Date End Date Jigar Grace MD [address] [place] [address] PCP - General Family Medicine 02/23/24 Melia Mantilla NP [address] [place] [address] Nurse Practitioner Family Medicine 02/23/24 Awilda Tejada NP [address] [place] [address] Nurse Practitioner Family Medicine 02/23/24 Net Developer Contract Relationship Specialty Start Date End Date Jigar Grace MD [address] [place] [address] PCP - General Family Medicine 02/23/24 Melia Mantilla NP [address] [place] [address] Nurse Practitioner Family Medicine 02/23/24 Awilda Tejada NP [address] [place] [address] Nurse Practitioner Family Medicine 02/23/24 Net Developer Contract Relationship Specialty Start Date End Date Jigar Grace MD [address] [place] [address] PCP - General Family Medicine 02/23/24 Melia Mantilla SK[employer] [address] [place] [address] Nurse Practitioner Family Medicine 02/23/24 Awilda Tejada NP [address] [place] [address] Nurse Practitioner Family Medicine 02/23/24 Net Developer Contract Relationship Specialty Start Date End Date Jigar Grace MD [address] [place] [address] PCP - General Family Medicine 02/23/24 Melia Mantilla [employer] [address] [place] [address] Nurse Practitioner Family Medicine 02/23/24 Awilda Tejada NP [address] [place] [address] Nurse Practitioner Family Medicine 02/23/24 Net Developer Contract Relationship Specialty Start Date End Date Jigar Grace MD [address] [place] [address] PCP - General Family Medicine 02/23/24 Melia Mantilla [employer] [address] [place] [address] Nurse Practitioner Family Medicine 02/23/24 Awilda Tejada NP [address] [place] [address] Nurse Practitioner Family Medicine 02/23/24 Net Developer Contract Relationship Specialty Start Date End Date Jigar Grace MD [address] [place] [address] PCP - General Family Medicine 02/23/24 Melia Mantilla NP [address] [place] [phone] Nurse Practitioner Family Medicine 02/23/24 Awilda Tejada NP [address] [place] [address] Nurse Practitioner Family Medicine 02/23/24 Net Developer Contract Relationship Specialty Start Date End Date Jigar Grace MD [address] [place] [address] PCP - General Family Medicine 02/23/24 Melia Mantilla NP [address] [place] [address] Nurse Practitioner Family Medicine 02/23/24 Awilda Tejada NP [address] [place] [address] Nurse Practitioner Family Medicine 02/23/24 Net Developer Contract Relationship Specialty Start Date End Date Jigar Grace MD [address] [place] [address] PCP - General Family Medicine 02/23/24 Melia Mantilla NP [address] [place] [address] Nurse Practitioner Family Medicine 02/23/24 Awilda Tejada NP [address] [place] [address] Nurse Practitioner Family Medicine 02/23/24 Team Status: [...] October 17, 2024 End: October 18, 2024 Net Developer Contract Relationship Specialty Start Date End Date Jigar Grace MD [address] [place] [address] PCP - General Family Medicine 02/23/24 Melia Mantilla NP [address] [place] [address] Nurse Practitioner Family Medicine 02/23/24 Awilda Tejada NP [address] [place] [address] Nurse Practitioner Family Medicine 02/23/24 Net Developer Contract Relationship Specialty Start Date End Date Jigar Grace MD [address] [place] [address] PCP - General Family Medicine 02/23/24 Melia Mantilla NP [address] [place] [address] PCP - [facility] 09/19/24 Melia Mantilla NP [address] [place] [address] Nurse Practitioner Family Medicine 02/23/24 Awilda Tejada NP [address] [place] [address] Nurse Practitioner Family Medicine 02/23/24 Net Developer Contract Relationship Specialty Start Date End Date Jigar Grace MD [address] [place] [address] PCP - General Family Medicine 02/23/24 Melia Mantilla NP [address] [place] [address] [facility] 09/19/24 Melia Mantilla SK[employer] DIVER [address] [place] [address] Nurse Practitioner Family Medicine 02/23/24 Awilda Tejada SK[employer] DIVER [address] [place] [address] Nurse Practitioner Family Medicine 02/23/24 Net Developer Contract Relationship Specialty Start Date End Date Jigar Grace MD [address] [place] [address] PCP - General Family Medicine 02/23/24 Melia Mantilla NP [address] [place] [address] PCP - [facility] 09/19/24 Melia Mantilla NP [address] [place] [address] Nurse Practitioner Family Medicine 02/23/24 Awilda Tejada NP [address] [place] [phone] Nurse Practitioner Family Medicine 02/23/24 Net Developer Contract Relationship Specialty Start Date End Date Jigar Grace MD [address] [place] [address] PCP - General Family [facility] 02/23/24 Melia Mantilla NP [address] [place] [address] [facility] 09/19/24 Melia Mantilla NP [address] [place] [address] Nurse Practitioner Family Medicine 02/23/24 Awilda Tejada NP [address] [place] [address] Nurse Practitioner Family Medicine 02/23/24 Team Status: Inactive Member Role Status Dates Melia Mantilla NP-Mili Primary Care Provide r, Referring Provider Active Start: October 29, 2024 End: October 29, 2024 López Tomlin MD Attending Provider Active Sta rt: October 29, 2024 End: October 29, 2024 Team Status: Inactive Member Role Status Dates SUSANA WyattC Primary Care Provider Active Start: November 20, 2024 End: November 20, 2024 Melia Potter PA-C Attending Provider Active Sta rt: November 20, 2024 End: November 20, 2024 Team Status: Inactive Member Role Status Dates VON Wyatt Primary Care Provide r, Attending Provider Active Start: December 12, 2024 End: December 12, 2024 Net Developer Contract Relationship Specialty Start Date End Date Jigar Grace MD [address] [place] [address] PCP - General Family Medicine 02/23/24 Melia Mantilla NP [address] [place] [address] PCP - [facility] 09/19/24 Melia Mantilla NP [address] [place] [address] Nurse Practitioner Family Medicine 02/23/24 Awilda Tejada NP [address] [place] [address] Nurse Practitioner Family Medicine 02/23/24 Net Developer Contract Relationship Specialty Start Date End Date Jigar Grace MD [address] [place] [address] PCP - General Family Medicine 02/23/24 Melia Mantilla NP [address] [place] [address] [facility] 09/19/24 Melia Mantilla NP [address] [place] [address] Nurse Practitioner Family Medicine 02/23/24 Awilda Tejada SKY DIVER [address] [place] [address] Nurse Practitioner Family Medicine 02/23/24 Net Developer Contract Relationship Specialty Start Date End Date Jigar Grace MD [address] [place] [address] PCP - General Family Medicine 02/23/24 Melia Mantilla NP [address] [place] [place] [address] PCP - [facility] 09/19/24 Melia Mantilla NP [address] [place] [address] Nurse Practitioner Family [facility] 02/23/24 Awilda Tejada NP [address] [place] [phone] Nurse Practitioner Family [facility] 02/23/24 Net Developer Contract Relationship Specialty Start Date End Date Jigar Grace MD [address] [place] [address] PCP - General Family [facility] 02/23/24 Melia Mantilla NP [address] [place] [address] PCP - [facility] 09/19/24 Melia Mantilla NP [address] [place] [address] Nurse Practitioner Family Medicine 02/23/24 Awilda Tejada NP [address] [place] [address] Nurse Practitioner Family Medicine 02/23/24 Goals (unrecognized [...] and content) DATE CREATED AUTHOR 01/11/2023 [facility] DATE CREATED AUTHOR AUTHOR'S ORGANIZ ATION 12/13/2024 [facility] DATE CREATED AUTHOR AUTHOR'S ORGANIZ ATION 12/23/2024 [facility] EPIC Reason for Visit (unrecogniz [...] BE BASED ON THE PRIMARY CLINICAL RECORDS. [employer] [facility]. provides no warranty or guarantee of the accuracy or completeness of information in this document.
[2024-12-28] MEDS: LACTATED RINGER'S SOLUTION 1,000 ML 50 ML IV ×2 (09:54→11:52)
[2024-12-28 11:06] LABS: HCG Qualitative NEGATIVE (NEGATIVE); Internal Control Within Normal Limits
[2024-12-28] MEDS: METHYLENE BLUE 50 MG/10 ML AMPULE INJ (12:30)
--- NOTE | 2024-12-28 12:33 | PM.ONB ---
Brief Operative Note Date of procedure: 12/28/24 Pre-op diagnosis general: pelvic pain, lt ovarian cyst, ho endometriosis, ho lt ovarian endometrioma Post-op diagnosis: same as pre-op Procedure: NAME OF PROCEDURE: robotic assisted laparoscopic lt ovarian cystotomy, chromopertubation due to suspected tubal damage finding, lt ovarian endometrioma, delayed rt tubal spillage of dye, spillage of dye from lt tube easily, significant endometriosis along pelvic side wall, anterior and posterior culdesac PROCEDURE: The patient was taken back to the Operating Room where she was given general anesthesia without difficulty. She was then prepped and draped in the normal sterile fashion after being placed in a dorsal lithotomy position. A wet sponge stick was placed into the patient's vagina. Attention was then turned to the patient's abdomen, where a scalpel was used to make a small infraumbilical incision. The S retractors were then used to dissect the underlying layers until the fascia could be seen. The fascia was then grasped with Curt clamps and tented up. A knife was then used to make a small incision to the fascia. The muscle was identified, at that time two sutures of #0 Vicryl on a GI needle was then used and placed through the fascia. the peritoneum was then identified and entered bluntly. The 10-4 Josesito was then placed into the patient's abdomen. This was confirmed with direct visualization of the bowel, using the laparoscope. The patient's abdomen was then insufflated using approximately 4 liters of CO2 gas. Survey of the patient's abdomen demonstrated ovaries were normal in appearance as well as both tubes and uterus. A second and third rt and lt lateral robotic ports which were 8 mm in size, was then placed after the skin incision was made under direct visualization . the robotic arms were engaged. The patient's left ovary was identified and with gentle manipulation spillage of chocolate cyst occurred and was then evacuated with irrigation. chromopertubation was then performed dt significant endometriosis and suspect possible tubal damage, spillage easily from lt tube and delayed spillage from rt tube with gentle pressure. The lateral ports were then moved under direct visualization with excellent hemostasis. All instruments were removed from the patient's abdomen. The fascia was closed using the #0 Vicryl on GI needle. The skin was closed using 4-0 Vicryl subcuticularly. All instruments were removed from the patient's vagina as well. The patient was taken out of the dorsal lithotomy position and placed in the supine position and taken to recovery in stable condition. Sponge, lap and needle counts were correct x2. Anesthesia: TITO Surgeon: Curtis Flores Silver Miner Blasting: Sully Mack Estimated blood loss (mL): 5 Pathology: none sent Condition: stable Disposition: PACU
[2024-12-28] MEDS: HYDROMORPHONE HCL 0.5 MG/0.5 ML SYRINGE IV (13:04)
[2024-12-28] MEDS: PROMETHAZINE HCL 25 MG TABLET PO (13:07)
--- NOTE | 2024-12-28 13:22 | PC.NURSE ---
c/o nausea; no emesis; medicated with oral Phenergan as ordered
--- NOTE | 2024-12-28 13:36 | PC.NURSE ---
No further c/o nausea
--- NOTE | 2024-12-28 13:48 | PC.NURSE ---
States she is still nauseated; no emesis; text out to Dr. Flores
[2024-12-28] MEDS: ONDANSETRON PF 4 MG/2 ML VIAL IV (13:53)
--- NOTE | 2024-12-28 13:57 | PC.NURSE ---
Medicated with Zofran IV as ordered
[2024-12-28] MEDS: HYDROCODONE/ACET 5-325 MG TABLET 1 TAB PO (14:14)
--- NOTE | 2024-12-28 14:18 | PC.NURSE ---
Does not rate pain; states my belly hurts ; no further c/o nausea
--- NOTE | 2024-12-28 14:51 | PC.NURSE ---
Up to the bathroom and voids clear yellow without difficulty; no further c/o nausea
== END 2024-12-28 14:52 | disposition home or self-care (01) ==
PROVIDERS: PCP Family Medicine; Visit Provider Obstetrics & Gynecology
PROC: (CPT 840; principal; 2024-12-28 10:10)
DX: R10.2 Pelvic and perineal pain (principal); N83.202 Unspecified ovarian cyst, left side; Z87.898 Personal history of other specified conditions; N80.122 Deep endometriosis of left ovary; N80.359 Endometriosis of pelvic sidewall, unspecified side, unspecified depth
CPT/HCPCS: 49322; 58350; 36415; 84703; J0131; J1100; J1171; J1885; J2250; J2405; J2704; J3010; Q0169

== ENCOUNTER 2025-06-24 14:00 | Outpatient (RCR) | payer SELFPAY ==
--- OUTSIDE RECORDS SUMMARY | 2024-12-25 05:00 | XMS_ITS ---
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 F/u. * Medical History: Objective: * Vitals: Assessment: Plan: * Treatment: * * Electronic signature of Aniket Rosenberg MD, [id number] on 06/24/2025 at 02:03 PM EDT Sign off status: Pending Visit Status: N /S N/C (No Show/No Charge) * Provider: Hector Rosenberg MD (TTC) Date: 0 12/25/2024 Generated for Printi ng/Faxing/eTransmitting on: 1 02:03 PM EDT
--- OUTSIDE RECORDS SUMMARY | 2024-12-27 09:30 | XMS_ITS ---
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 F/u. * Medical History: Objective: * Vitals: Assessment: Plan: * Treatment: * * Electronic signature of Aniket Rosenberg MD, [id number] on 06/24/2025 at 09:52 AM EDT Sign off status: Pending Visit Status: N /S N/C (No Show/No Charge) * Provider: Hector Rosenberg MD (TTC) Date: 0 12/27/2024 Generated for Printi ng/Faxing/eTransmitting on: 1 09:52 AM EDT
--- OUTSIDE RECORDS SUMMARY | 2025-06-24 14:04 | XMS_ITS | Encounter Summary ---
Author Organization [facility] Address [address] [place] [address] Care Team Providers Care Professional Development Instructor Name Role Phone Jigar Grace MD Primary Care Provider [phone] Melia Jim NP Unavailable Awilda Tejada SAP TECHNICAL DEVELOPER Unavailable [phone] Melia Jim NP Unavailable Encounter Details Date Type Department Care Team (Late st Contact Info) Description 06/24/2025 Telephone [facility] Elie SERNA [address] [facility] [place] [address] Sarah JosephsolCAROLIN [address] [facility] [place] [address] Social History Tobacco Use Types Packs/Day Years Used Date Smoking Tobacco: Never Smokeless Tobacco: Never Alcohol Use Standard Drinks/Week Comments Never 0 (1 standard drink = 0.6 oz pur e alcohol) B1300 Health Literacy Answer Date Recor ded How often do you need to hav e someone help you when you read instructions, pamphlets, or other written material from your doctor or pharmacy? Never 06/18/2024 Social Connection and Isolation Panel [NHANES] A nswer Date Recorded In a typical week, how many times do you talk on the phone with family, friends, or neighbors? Once a week 09/30/20 24 How often do you get togethe r with friends or relatives? Once a week 06/18/2024 How often do you attend chur ch or jain services? Never 06/18/2024 Do you belong to any clubs o r organizations such as advent groups, unions, fraternal or athletic groups, or school groups? No 06/18/2024 How often do you attend meet ings of the clubs or organizations you belong to? Never 06/18/2024 Are you , , di vorced, , never , or living with a partner? Living with partner 06/18/2024 AUDIT-C Answer Date Recorded Q1: How often do you have a drink containing alcohol? Never 06/18/2024 Q2: How many drinks containi ng alcohol do you have on a typical day when you are drinking? Patient does not drink Q3: How often do you have si x or more drinks on one occasion? Never 06/18/2024 Overall Financial Resource Strain (CARDIA) Answe r Date Recorded How hard is it for you to pa y for the very basics like food, housing, medical care, and heating? Hard 06/18/2024 PHQ-2 Answer Date Recorded Patient Health Questionnaire-2 Score 0 09/03/2024 [facility] - Occupational Stress Questionnaire Answer Date Recorded Do you feel stress - tense, restless, nervous, or anxious, or unable to sleep at night because your mind is troubled all the time - these days? Rather much 06/18/2024 Exercise Vital Sign Answer Date Recorde d On average, how many days pe r week do you engage in moderate to strenuous exercise (like a brisk walk)? 7 days 06/18/2024 On average, how many minutes do you engage in exercise at this level? 30 min 06/18/2024 Hunger Vital Sign Answer Date Recorded Within the past 12 months, y ou worried that your food would run out before you got the money to buy more. Never true 06/18/20 24 Within the past 12 months, t he food you bought just didn't last and you didn't have money to get more. Never true 06/18/2024 PRAPARE - Transportation Answer Date Re corded In the past 12 months, has l ack of transportation kept you from medical appointments or from getting medications? No 05/22 In the past 12 months, has l ack of transportation kept you from meetings, work, or from getting things needed for daily living? No 06/18/2024 Housing Stability Vital Sign Answer Paulo e Recorded In the last 12 months, was t here a time when you were not able to pay the mortgage or rent on time? No 06/18/2024 In the past 12 months, how m any times have you moved where you were living? 0 06/18/2024 At any time in the past 12 m [facility], were you homeless or living in a long term (including now)? No 06/18/2024 Comments No Sex and Gender Information Value Date Recorded Sex Assigned at Not on file Legal Sex Female 7:33 PM EDT Gender Identity Not on file Sexual Orientation Not on file documented as of this encounter Miscellaneous Notes * Telephone Encounter - Chanelle Joseph MA - 06/24/2025 9:53 AM EDT Pt has missed menses. A faint positive prego test was done at home. HCG labs were sent to [facility] and patient aware to go today for a draw and repeat again in 2 days. documented in this encounter Plan of Treatment Upcoming Encounters Date Type Department Care Team (Late st Contact Info) Description 08/21/2025 8:00 AM EST Ancillary Procedure [facility] Elie OBYESI [address] [place] [address] [place] [address] Scheduled Orders Name Type Priority Associated Diagnoses Orde r Schedule hCG, quantitative, Lab Routine Positive urine test ([facility]) Expected: 06/24/2025 (Approximate), Expires: 06/24/2026 documented as of this encounter Visit Diagnoses Diagnosis Positive urine test ([facility]) documented in this encounter Care Teams Professional Development Instructor Relationship Specialty Start Date End Date Jigar Grace MD [address] [place] [address] PCP - General Family Medicine 02/23/24 Melia Jim NP [address] [place] [address] PCP - [facility] 12/18/2408/18 Melia Jim NP [address] [place] [address] Nurse Practitioner Family Medicine 02/23/24 Awidla Tejada NP [address] [place] [address] Nurse Practitioner Family Medicine 02/23/24 documented as of this encounter
--- OUTSIDE RECORDS SUMMARY | 2025-06-24 14:04 | XMS_ITS | Encounter Summary ---
Author Organization [facility] Address [address] [place] [address] Care Team Providers Care Central Office Repairer Name Role Phone Jigar Grace MD Primary Care Provider [phone] Melia Jim NP Unavailable Awilda Tejada TECHNOLOGIST INFECTIOUS DISEASE Unavailable Melia Jim NP Unavailable Melia Jim NP Unavailable Encounter Details Date Type Department Care Team (Late st Contact Info) Description 02/06/2025 Results Follow-Up [facility] Elie SERNA [address] [employer] [place] [address] Danika Barrett LPN [address] [place] [address] US Pelvis w/ TV Social History Tobacco Use Types Packs/Day Years [...] family, friends, or neighbors? Once a week 06/18/20 How often do you get togethe r with friends or relatives? Once a week 06/18/2024 How often do you attend chur ch or anglican services? Never 06/18/2024 Do you belong to any clubs o r organizations such as yazidism groups, unions, fraternal or athletic groups, or [...] Recorded Patient Health Questionnaire-2 Score 0 09/03/2024 [facility] - Occupational Stress [...] any time in the past 12 m [facility], were you homeless or living in a usp (including now)? No 06/18/2024 Comments No Sex and Gender Information Value Date Recorded Sex Assigned at Not on file Legal Sex Female 7:33 PM EDT Gender Identity Not on file Sexual Orientation Not on file documented as of this encounter Miscellaneous Notes * Result Encounter Note - Danika Barrett LPN - 02/07/2025 1:09 PM EDT Pt notified and transferred upfront to schedule * Result Encounter Note - Danika Barrett LPN - 02/06/2025 4:05 PM EDT Left pt a detailed voicemail to call office back and schedule appointment documented in this encounter Plan of Treatment Upcoming Encounters Date Type Department Care Team (Late st Contact Info) Description 08/21/2025 8:00 AM EST Ancillary Procedure [facility] Elie OBGYTabitha [address] [place] [address] [place] [address] documented as of this encounter Visit Diagnoses Not on filedocumented in this encounter Care Teams Central Office Repairer Relationship Specialty Start Date End Date Jigar Grace MD [address] [place] [address] PCP - General Family Medicine 02/23/24 Melia Jim NP [address] [facility] [address] [place] [address] PCP - [facility] 09/19/24 03/18/25 Melia Jim NP [address] [facility] [address] [place] [address] PCP - [facility] 12/18/2408/18 Melia Jim NP [address] [place] [address] Nurse Practitioner Family Medicine 02/23/24 Awilda Tejada NP [address] [place] [address] Nurse Practitioner Family Medicine 02/23/24 documented as of this encounter
--- OUTSIDE RECORDS SUMMARY | 2025-06-24 14:04 | XMS_ITS | Encounter Summary ---
Author Organization [facility] Address [address] [place] [address] Care Team Providers Care Special Events Director Name Role Phone Jigar Grace MD Primary Care Provider [phone] Melia Jim NP Unavailable Awilda Tejada MATERIAL CONTROL SPECIALIST Unavailable [phone] Melia Jim NP Unavailable Reason for Visit * Reason Onset Date Comments Med Refill 06/24/2025 Encounter Details Date Type Department Care Team (Late st Contact Info) Description 06/24/2025 Refill [place] SRENA [address] [facility] [place] [address] Sarah Josephsol [place] [address] [facility] [place] [address] Nausea Social History Tobacco Use Types Packs/Day Years [...] often do you attend chur ch or yarsanism services? Never 06/18/2024 Do you belong to any clubs o r organizations such as anglican groups, unions, fraternal or athletic groups, or [...] Recorded Patient Health Questionnaire-2 Score 0 09/03/2024 [facility] - Occupational Stress [...] any time in the past 12 m [facility], were you homeless or living in a senior care (including now)? No 06/18/2024 Comments No Sex and Gender Information Value Date Recorded Sex Assigned at Not on file Legal Sex Female 7:33 PM EDT Gender Identity Not on file Sexual Orientation Not on file documented as of this encounter Miscellaneous Notes * Telephone Encounter - Chanelle Joseph MA - 06/24/2025 1:33 PM EDT Pt believes is is getting hcg labs done today and having severe nausea. Rx was sent. PVU documented in this encounter Plan of Treatment Upcoming Encounters Date Type Department Care Team (Late st Contact Info) Description 08/21/2025 8:00 AM EST Ancillary Procedure [facility] Elie OBGYTabitha [address] [place] [address] [place] [address] documented as of this encounter Visit Diagnoses Diagnosis Nausea Nausea alone documented in this encounter Care Teams Special Events Director Relationship Specialty Start Date End Date Jigar Grace MD [address] [place] [address] PCP - General Family Medicine 02/23/24 Melia Jim NP [address] [place] [address] PCP - [facility] 12/18/2408/18 Melia Jim NP [address] [place] [address] Nurse Practitioner Family Medicine 02/23/24 Awilda Tejada NP [address] [place] [address] Nurse Practitioner Family Medicine 02/23/24 documented as of this encounter
--- OUTSIDE RECORDS SUMMARY | 2025-06-24 14:04 | XMS_ITS | Encounter Summary ---
Author Organization [facility] Address [address] [place] [address] Care Team Providers Care Aromatherapist Name Role Phone Jigar Grace MD Primary Care Provider Melia Jim NP Unavailable Awilda Tejada NP Unavailable Melia Jim NP Unavailable Melia Jim NP Unavailable Encounter Details Date Type Department Care Team (Late st Contact Info) Description 10/22/2024 [facility] [address] [place] [address] Melia Jim NP [address] [address] Social History Tobacco Use Types Packs/Day Years [...] often do you attend chur ch or islam services? Never 06/18/2024 Do you belong to any clubs o r organizations such as pentecostalism groups, unions, fraternal or athletic groups, or [...] Recorded Patient Health Questionnaire-2 Score 0 09/03/2024 [facility] - Occupational [...] any time in the past 12 m [facility], were you homeless or living in a alf (including now)? No 06/18/2024 Comments No Sex and Gender Information Value Date Recorded Sex Assigned at Not on file Legal Sex Female 7:33 PM EDT Gender Identity Not on file Sexual Orientation Not on file documented as of this encounter Plan of Treatment Upcoming Encounters Date Type Department Care Team (Late st Contact Info) Description 08/21/2025 8:00 AM EST Ancillary Procedure [facility] Elie OBGYN [address] [place] [address] [place] [address] documented as of this encounter Visit Diagnoses Not on filedocumented in this encounter Care Teams Aromatherapist Relationship Specialty Start Date End Date Jigar Grace MD [address] [place] [address] PCP - General Family Medicine 02/23/24 Melia Jim, ARMED SECURITY PROFESSIONAL [address] [place] [address] PCP - [facility] 09/19/24 03/18/25 Melia Jim, ELICIA [address] [place] [address] PCP - [facility] 12/18/2408/18 Melia Jim NP [address] [place] [address] Nurse Practitioner Family Medicine 02/23/24 Awilda Tejada NP [address] [place] [address] Nurse Practitioner Family Medicine 02/23/24 documented as of this encounter
--- OUTSIDE RECORDS SUMMARY | 2025-06-24 14:04 | XMS_ITS | Encounter Summary ---
Author Organization [facility] Address [address] [place] [address] Care Team Providers Care Public Affairs Director Name Role Phone Jigar Grace MD Primary Care Provider [phone] Melia Jim NP Unavailable Awilda Tejada PLANISHING HAMMER OPERATOR Unavailable Melia Jim NP Unavailable Melia Jim NP Unavailable Encounter Details Date Type Department Care Team (Late st Contact Info) Description 12/04/2024 Orders Only [facility] Elie OBYESI [address] [facility] [place] [address] Chanelle Joseph MA [address] [facility] [place] [address] Social History Tobacco Use Types Packs/Day Years [...] friends, or neighbors? Once a week 06/18/20 24 How often do you get togethe r with friends or relatives? Once a week 06/18/2024 How often do you attend chur ch or buddhism services? Never 06/18/2024 Do you belong to any clubs o r organizations such as jehovah's witness groups, unions, fraternal or athletic groups, or [...] Recorded Patient Health Questionnaire-2 Score 0 09/03/2024 [facility] - Occupational [...] any time in the past 12 m [facility], were you homeless or living in a fpc (including now)? No 06/18/2024 Comments No Sex [...] AM EST Ancillary Procedure [facility] Elie OBGYN [address] [place] [address] [place] [address] documented as of this encounter Procedures Procedure Name Priority Date/Time Associated Diagnosis Comments PAP SMEAR Routine 11/21/2024 12:00 AM EST documented in this encounter Results * Pap Smear (11/21/2024 12:00 AM EST) Swab Cervical swab / Unknown [facility] ORDERABLES Final Re sult EXTERNAL LAB documented in this encounter Visit Diagnoses Not on filedocumented in this encounter Care Teams Public Affairs Director Relationship Specialty Start Date End Date Jigar Grace MD [address] [place] [address] PCP - General Family Medicine 02/23/24 Melia Jim NP [address] [place] [address] PCP - [facility] 09/19/24 03/18/25 Melia Jim NP [address] [place] [address] PCP - [facility] 12/18/2408/18 Melia Jim NP [address] [place] [address] Nurse Practitioner Family Medicine 02/23/24 Awilda Tejada NP [address] [place] [address] Nurse Practitioner Family Medicine 02/23/24 documented as of this encounter
--- OUTSIDE RECORDS SUMMARY | 2025-06-24 14:04 | XMS_ITS | Encounter Summary ---
Author Organization [facility] Address [address] [place] [address] Care Team Providers Care Operations Support Manager Name Role Phone Jigar Grace MD Primary Care Provider Melia Jim NP Unavailable Awilda Tejada NP Unavailable [phone] Melia Jim NP Unavailable Melia Jim NP Unavailable Encounter Details Date Type Department Care Team (Late st Contact Info) Description 10/15/2024 [facility] [address] [place] [phone] Melia Jim NP [address] [address] Social History Tobacco Use Types [...] often do you attend chur ch or alevism services? Never 06/18/2024 Do you belong to any clubs o r organizations such as taoist groups, unions, fraternal or athletic groups, or [...] any time in the past 12 m [facility], were you homeless or living in a longterm (including now)? No 06/18/2024 Comments No Sex [...] AM EST Ancillary Procedure [facility] Elie OBGYN [address] [place] [address] [place] [address] documented as of this encounter Visit Diagnoses Not on filedocumented in this encounter Care Teams Operations Support Manager Relationship Specialty Start Date End Date Jigar Grace MD [address] [place] [address] PCP - General Family Medicine 02/23/24 Melia Jim, SAP BW CONSULTANT [address] [place] [address] PCP - [facility] 09/19/24 03/18/25 Melia Jim, ELICIA [address] [place] [address] PCP - [facility] 12/18/2408/18 Melia Jim NP [address] [place] [address] Nurse Practitioner Family Medicine 02/23/24 Awilda Tejada NP [address] [place] [address] Nurse Practitioner Family Medicine 02/23/24 documented as of this encounter
--- OUTSIDE RECORDS SUMMARY | 2025-06-24 14:04 | XMS_ITS | Encounter Summary ---
Author Organization [facility] Address [address] [place] [address] Care Team Providers Care Feather Baler Name Role Phone Farshad Rosenberg MD Primary Care Provider [phone] Jigar Grace MD Primary Care Provider [phone] Melia Jim ACUPRESSURE THERAPIST Unavailable Awilda Tejada ACUPRESSURE THERAPIST Unavailable [phone] Melia Jim ACUPRESSURE THERAPIST Unavailable Melia Jim ACUPRESSURE THERAPIST Unavailable Encounter Details Date Type Department Care Team (Late st Contact Info) Description 08/20/2023 Clinisync Result Encounter [facility] External Department Unsolicited Hue Flores, DO [address] [place] [address] [place] [address] Social History Tobacco Use Types Packs/Day Years Used Date Smoking Tobacco: Never Assessed Comments Unknown Sex and Gender Information Value Date Recorded Sex Assigned at Not on file Legal Sex Female 7:33 PM EDT Gender Identity Not on file Sexual Orientation Not on file documented as of this encounter Plan of Treatment Upcoming Encounters Date Type Department Care Team (Late st Contact Info) Description 08/21/2025 8:00 AM EST Ancillary Procedure [facility] [address] [facility] [address] [place] [address] documented as of this encounter Procedures Procedure Name Priority Date/Time Associated Diagnosis Comments US PELVIS W/ TRANSVAGINAL 08/20/2023 7:31 AM EST documented in this encounter Results * US PELVIS W/ TRANSVAGINAL (08/20/2023 7:31 AM EST) Anatomical Region Laterality Modality Other 08/20/2023 7:31 AM EST Narrative 08/20/2023 7:31 AM EST [address] [address] Ultrasound Report Signed Patient: SO LOPEZ MR#: [id number] : 2005 Acct:[id number] Age/Sex: 17 / F ADM Date: 08/19/23 Loc: US Attending Dr: Hue Flores D.O. Ordering Physician: Hue Flores D.O. Date of Service: 08/19/23 Procedure(s): US pelvis w/ transvaginal Accession Number(s): [id number] cc: Hue Flores D.O.; Farsahd Rosenberg M.D. [address] [address] Patient Name: SO LOPEZ MRN: [id number] date: 2005 Sex: F Assigned Patient Location: US Current Patient Location: Accession/Order Number: [id number] Exam Date: 08/19/2023 00:00 Report Date: 08/20/2023 07:31 At the request of: HUE FLORES Procedure: US pelvis w/ transvaginal EXAMINATION: US pelvis w/ transvaginal HISTORY: z87.42 hx ovarian cyst, pain ; left pelvic pain for 5 days COMPARISON: No relevant comparison available. TECHNIQUE: Transabdominal and/or transvaginal sonographic examination was performed as indicated by examination type. FINDINGS: UTERUS: Normal size and appearance. Uterus size: 7.4 x 3.1 x 4.8 cm ENDOMETRIUM: Normal homogeneous appearance. Endometrial thickness: 3.5 mm RIGHT OVARY: Normal size and appearance. Duplex Doppler demonstrates normal waveform and flow; resistive index 0.6. Ovary size: 5.4 x 1.7 x 3.1 cm LEFT OVARY: Contains a 5.9 cm hypoechoic structure with uniform internal echogenicity and no internal blood flow. Also contains a 3.6 cm benign-appearing cyst. Cm benign-appearing cyst Duplex Doppler demonstrates normal waveform and flow; resistive index 0.5. Ovary size: 6.3 x 6.6 x 6.1 cm CUL-DE-SAC: Small amount of free fluid, likely physiologic. BLADDER: Unremarkable. OTHER: None. US/US pelvis w/ transvaginal IMPRESSION: 1. Left ovary contains a large 5.9 cm complex/hemorrhagic cyst versus a vascular mass/dermoid. Follow-up ultrasound evaluation in 6 weeks to document regression is recommended. 2. Additionally seen within the left ovary is an anechoic benign-appearing 3.6 cm cyst. This could also be reevaluated on follow-up. 3. Unremarkable uterus and right ovary. Electronically authenticated by: ANASTACIO HERNANDEZ Date: 08/20/2023 07:31 Dictated By: Anastacio Hernandez M.D. Signed By: 08/20/2334 DD/ 0 TD/TT: Principal Consultant: Procedure Note Radiology, Radiologist, - 08/21/2023 [place] [address] Ultrasound Report Signed Patient: SO LOPEZ [facility]#: [id number] : 2005Acct:[id number] Age/Sex: 17 / FADM Date: 08/19/23 Loc: US Attending Dr: Hue Flores D.O. Ordering Physician: Hue Flores D.O. Date of Service: 08/19/23 Procedure(s): US pelvis w/ transvaginal Accession Number(s): [id number] cc: Hue Flores D.O.; Farshad Rosenberg M.D. The [address] [address] Patient Name: SO LOPEZ MRN: [id number] date: 2005 Sex: F Assigned Patient Location: US Current Patient Location: Accession/Order Number: [id number] Exam Date: 08/19/2023 00:00 Report Date: 08/20/2023 07:31 At the request of: HUE FLORES Procedure: US pelvis w/ transvaginal EXAMINATION: US pelvis w/ transvaginal HISTORY: z87.42 hx ovarian cyst, pain ; left pelvic pain for 5 days COMPARISON: No relevant comparison available. TECHNIQUE: Transabdominal and/or transvaginal sonographic examination was performed as indicated by examination type. FINDINGS: UTERUS: Normal size and appearance. Uterus size: 7.4 x 3.1 x 4.8 cm ENDOMETRIUM: Normal homogeneous appearance. Endometrial thickness: 3.5 mm RIGHT OVARY: Normal size and appearance. Duplex Doppler demonstratesnormal waveform and flow; resistive index 0.6. Ovary size: 5.4 x 1.7 x 3.1 cm LEFT OVARY: Contains a 5.9 cm hypoechoic structure with uniform internal echogenicity and no internal blood flow. Also contains a 3.6 cm benign-appearing cyst. Cm benign-appearing cyst Duplex Dopplerdemonstrates normal waveform and flow; resistive index 0.5. Ovary size: 6.3 x 6.6 x 6.1cm CUL-DE-SAC: Small amount of free fluid, likely physiologic. BLADDER: Unremarkable. OTHER: None. US/US pelvis w/ transvaginal IMPRESSION: 1. Left ovary contains a large 5.9 cm complex/hemorrhagic cyst versus a vascular mass/dermoid. Follow-up ultrasound evaluation in 6 weeks todocument regression is recommended. 2. Additionally seen within the left ovary is an anechoic benign-appearing3.6 cm cyst. This could also be reevaluated on follow-up. 3. Unremarkable uterus and right ovary. Electronically authenticated by: ANASTACIO HERNANDEZ Date: 08/20/2023 07:31 Dictated By: Anastacio Hernandez M.D. Signed By:08/20/2334 DD/ 0 TD/TT: Principal Consultant: us Hue Flores DO [facility] Final Result documented in this encounter Visit Diagnoses Not on filedocumented in this encounter Care Teams Feather Baler Relationship Specialty Start Date End Date Farshad Rosenberg MD PCP - General [facility] Medicine 10/19/23 02/22/24 Jigar Grace MD [address] [place] [address] PCP - General [facility] 02/23/24 Melia Jim NP [address] [place] [address] PCP - [facility] 09/19/24 03/18/25 Melia Jim NP [address] [facility] [address] [place] [address] PCP - [facility] 12/18/2408/18 Melia Jim NP [address] [place] [address] Nurse Practitioner Family Medicine 02/23/24 Awilda Tejada NP [address] [place] [address] Nurse Practitioner Family Medicine 02/23/24 documented as of this encounter
--- OUTSIDE RECORDS SUMMARY | 2025-06-24 14:04 | XMS_ITS | Clinical Summary ---
Author Organization [facility] Address [address] [place] [address] Care Team Providers Care Mold Parter Name Role Phone Jigar Grace MD Primary Care Provider [phone] Melia Jim NP Unavailable Awilda Tejada NP Unavailable [phone] Melia Jim NP Unavailable Allergies No known active allergies Medications norgestimate-ethiny l estradiol (Sprintec 28) 0.25-35 MG-MCG tabletIndications:E ncounter for initial prescription of contraceptive pills Take 1 tablet by mouth Daily Take 1 tablet by mouth daily 28 tablet 11 5 10/23/19 26 Active gabapentin (Neurontin) 600 MG tabletIndications:B ilateral sacroiliitis,Chroni c 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 90 tablet 2 5 Active amoxicillin (Amoxil) 500 MG capsule TAKE 1 CAPSULE BY MOUTH EVERY 8 HOURS UNTIL GONE 5 Active ondansetron ODT (Zofran-ODT) 4 MG disintegrating tabletIndications:N ausea Take 1 tablet (4 mg) by mouth every 6 (six) hours if needed for nausea or vomiting 30 tablet 5 07/24/20 25 Active Active Problems Problem Noted Date Diagnosed Date Encounter for surgical counseling 10/03/2023 Encounters Date Type Department Care Team Description 06/24/2025 Refill [facility] [address] [place] [address] Chanelle Joseph MA Nausea 06/24/2025 Telephone [facility] [address] [place] [address] Chanelle Joseph MA 04/07/2025 Refill [facility] [address] [place] [phone] Jigar Grace MD from Last 3 Months Immunizations Immunization Administration Dates Next Due DTaP, Unspecified 03/06/2009, 7,05/22/2004,03/05/2004,0 2003 Hep A, ped/adol, 2 dose 03/06/2009,01/06/2007 Hep B, Adolescent or Pediatric 05/22/2004,2003,2003 Hib (PRP-T) 01/06/2007,05/22/2004,03/05/2004 ,2003 IPV 03/06/2009,05/22/2004,03/05/2004 ,2003 MMR 03/06/2009 MMRV 01/06/2007 Meningococcal MCV4O 06/22/2021 Meningococcal MCV4P 05/04/2016 Pneumococcal Conjugate PCV 7 01/06/2007,05/22/20 04,03/05/2004 Tdap 05/04/2016 Varicella 03/06/2009 Family History Medical History Relation Name Comments Mental illness Father Mental illness Mother Diabetes Paternal Grandfather Cancer Paternal Grandmother Diabetes Paternal Grandmother Relation Name Status Comments Father Alive Mother Alive Paternal Grandfather Paternal Grandmother Sister Alive Social History Tobacco Use Types Packs/Day Years Used Date Smoking Tobacco: Never Smokeless Tobacco: Never Tobacco Cessation:Counseling Given: Not Answered Alcohol Use Standard Drinks/Week Comments Never 0 [...] often do you attend chur ch or methodist services? Never 06/18/2024 Do you belong to any clubs o r organizations such as baptism groups, unions, fraternal [...] Recorded Patient Health Questionnaire-2 Score 0 09/03/2024 [facility] of Occupat ional Health - Occupational Stress [...] any time in the past 12 m [facility], were you homeless or living in a [place] health care facility (including now)? No 06/18/2024 Comments No Sex and Gender Information Value Date Recorded Sex Assigned at Not on file Legal Sex Female 7:33 PM EDT Gender Identity Not on file Sexual Orientation Not on file Last Filed Vital Signs Vital Sign Reading Time Taken Comments Blood Pressure 112/72 02/19/2025 9:25 AM EDT Pulse 87 09/03/2024 10:32 AM EST Temperature 36.2 C (97.2 F) 09/03/2024 10:32 AM EST Respiratory Rate 18 07/27/2024 10:31 AM EST Oxygen Saturation 99% 09/03/2024 10:32 AM EST Inhaled Oxygen Concentration - - Weight 66.2 kg (146 lb) 02/19/2025 9:25 AM EDT Height 162.6 cm (5' 4 ) 09/03/2024 10:32 AM EST Body Mass Index 25.06 09/03/2024 10:32 AM EST Plan of Treatment Upcoming Encounters Date Type Department Care Team (Late st Contact Info) Description 08/21/2025 8:00 AM EST Ancillary Procedure [facility] [address] [place] [address] [place] [address] Health Maintenance Due Date Last Done Comments Influenza Vaccine (#1) 2025 Insurance [facility] MEDICAID Care Teams Mold Parter Relationship Specialty Start Date End Date Jigar Grace MD [address] [place] [id number] PCP - General Family Medicine 02/23/24 Melia Jim NP [address] [place] [address] PCP - [facility] 12/18/2408/18 Melia Jim NP [address] [place] [address] Nurse Practitioner Family Medicine 02/23/24 Awilda Tejada NP [address] [place] [address] Nurse Practitioner Family Medicine 02/23/24
--- OUTSIDE RECORDS SUMMARY | 2025-06-24 14:04 | XMS_ITS | Encounter Summary ---
Author Organization [facility] Address [address] [place] [address] Care Team Providers Care Tobacco Sampler Name Role Phone Jigar Grace MD Primary Care Provider [phone] Melia Jim NP Unavailable Awilda Tejada NP Unavailable Melia Jim NP Unavailable Melia Jim NP Unavailable Encounter Details Date Type Department Care Team (Late st Contact Info) Description 10/22/2024 [facility] [address] [place] [phone] Melia Jim NP [address] [address] Social History Tobacco Use Types [...] often do you attend chur ch or mandaen services? Never 06/18/2024 Do you belong to any clubs o r organizations such as denominational groups, unions, fraternal or athletic groups, or [...] Recorded Patient Health Questionnaire-2 Score 0 09/03/2024 [facility] of Occupat ional Health - Occupational [...] any time in the past 12 m [facility], were you homeless or living in [...] AM EST Ancillary Procedure [facility] [address] [place] [address] [place] [address] documented as of this encounter Visit Diagnoses Not on filedocumented in this encounter Care Teams Tobacco Sampler Relationship Specialty Start Date End Date Jigar Grace MD [address] [place] [address] PCP - General Family Medicine 02/23/24 Melia Jim, SITE AUDITOR [address] [place] [address] PCP - [facility] 09/19/24 03/18/25 Melia Jim, ELICIA [address] [place] [address] PCP - [facility] 12/18/2408/18 Melia Jim NP [address] [place] [address] Nurse Practitioner Family Medicine 02/23/24 Awilda Tejada NP [address] [place] [address] Nurse Practitioner Family Medicine 02/23/24 documented as of this encounter
--- OUTSIDE RECORDS SUMMARY | 2025-06-24 14:04 | XMS_ITS | Encounter Summary ---
Author Organization [facility] Address [address] [place] [address] Care Team Providers Care Vp Design Name Role Phone Jigar Grace MD Primary Care Provider Melia Jim NP Unavailable Awilda Tejada NP Unavailable Melia Jim NP Unavailable Melia Jim NP Unavailable Encounter Details Date Type Department Care Team (Late st Contact Info) Description 10/29/2024 [facility] [address] [place] [phone] Melia Jim NP [address] [address] Social History Tobacco Use Types [...] often do you attend chur ch or roman catholic services? Never 06/18/2024 Do you belong to any clubs o r organizations such as congregational groups, unions, fraternal or athletic groups, or [...] Recorded Patient Health Questionnaire-2 Score 0 09/03/2024 [facility] of Occupat ional Health - [...] any time in the past 12 m [facility], were you homeless or living in a snf (including now)? No 06/18/2024 Comments No Sex [...] AM EST Ancillary Procedure [facility] [address] [place] [address] [place] [address] documented as of this encounter Visit Diagnoses Not on filedocumented in this encounter Care Teams Vp Design Relationship Specialty Start Date End Date Jigar Grace MD [address] [place] [address] PCP - General Family Medicine 02/23/24 Melia Jim, SKIVER MACHINE [address] [place] [address] PCP - [facility] 09/19/24 03/18/25 Melia Jim, ELICIA [address] [place] [address] PCP - [facility] 12/18/2408/18 Melia Jim NP [address] [place] [address] Nurse Practitioner Family Medicine 02/23/24 Awilda Tejada NP [address] [place] [address] Nurse Practitioner Family Medicine 02/23/24 documented as of this encounter
--- OUTSIDE RECORDS SUMMARY | 2025-06-24 14:04 | XMS_ITS | Patient Health Record ---
Author Organization The [facility] in [place] Address [address] [place] [address] Care Team Providers Care Gold Frame Assembler Name Role Phone Aniket Rosenberg Primary Care Provider Allergies No Known Allergies Results Component Value Reference Range Notes LDH Reviewed date:12/20/2024 05:17:47 PM Interpretation: Performing Lab: Notes/Report: [facility] , Lactate Dehydrogenase 130 81-234 U/L Performing Lab: see note ML - [facility] HCG Qualitative* Reviewed date:12/28/2024 12:47:44 PM Interpretation: Performing Lab: Notes/Report: [facility] , HCG Qualitative NEGATIVE NEGATIVE Performing Lab: see note - [facility] HCG Tumor Marker Reviewed date:12/23/2024 03:27:06 PM Interpretation: Performing Lab: Notes/Report: [facility] , HCG Tumor Marker <1 . mIU/mL Female (Non-) 0 - 5 This test is not interpretable as a tumor marker in (ECLIA) characteristics [facility]. It has not been The result should not be used for treatment or for Instructional Services Specialist: Ced Masters PhD, Phone: [phone] Performed at: [facility] Results obtained with different test methods or kits holo-hormone, human chorionic gonadotropin (hCG), for use as a tumor marker. [facility] Electrochemiluminescence Immunoassay This test was developed and its performance diagnosis by another medically established diagnostic [address] [place] [address] [id number] free beta-subunit in human serum and plasma. the early detection of . females. product or procedure. The [facility] HCG + beta assay recognizes the cleared or approved by the Food and Drug Administration diagnostic purposes without confirmation of the (Postmenopausal) 0 - 8 nicked forms of hCG, the beta-core fragment and the cannot used interchangeably. This assay is intended for Performing Lab: see note - [facility] Cancer Antigen (CA) 125 Reviewed date:12/23/2024 03:27:06 PM Interpretation: Performing Lab: Notes/Report: [facility] , Cancer Antigen (CA) 125 18.4 0.0-38.1 U/mL (ECLIA) be used interchangeably. Results cannot be interpreted as disease. Values obtained with different assay methods or kits cannot [facility] Electrochemiluminescence Immunoassay absolute evidence of the presence or absence of malignant Performing Lab: see note - [facility] AFP, Serum, Tumor Marker Reviewed date:12/23/2024 03:27:06 PM Interpretation: Performing Lab: Notes/Report: [facility] , AFP, Serum, Tumor Marker 6.0 0.0-4.7 ng/mL disease. This test is not interpretable in females. Values obtained with different assay methods or kits cannot [facility] Electrochemiluminescence Immunoassay (ECLIA) absolute evidence of the presence or absence of malignant be used interchangeably. Results cannot be interpreted as Performing Lab: see note [facility] CEA Reviewed date:12/23/2024 03:27:06 PM Interpretation: Performing Lab: Notes/Report: [facility] , CEA 1.2 0.0-4.7 ng/mL Nonsmokers <3.9 absence of malignant disease. Smokers <5.6 Values obtained with different assay methods or kits Instructional Services Specialist: Ced Masters PhD, Phone: [phone] interpreted as absolute evidence of the presence or (ECLIA) [address] [place], [place] [id number] Performed at: [facility] Electrochemiluminescence Immunoassay cannot be used interchangeably. Results cannot be Performing Lab: see note - [facility] US pelvis w/ transvaginal Reviewed date:12/18/2024 04:24:50 PM Interpretation: Performing Lab: Notes/Report: Source Facility: [facility]-[address] [place] [address] [place] [address] Ultrasound Report Signed Patient: BERENICE LOPEZ MR#: [id number] : 2005 Acct:[id number] Age/Sex: 19 / F ADM Date: 12/18/24 Loc: US Attending Dr: Melia Potter Ordering Physician: Melia Potter Date of Service: 12/18/24 Procedure(s): US pelvis w/ transvaginal Accession Number(s): [id number] cc: Melia Potter; Farshad Rosenberg M.D. [place] [id number] Patient Name: BERENICE LOPEZ MRN: [id number] date: 2005 Sex: F Assigned Patient Location: Current Patient Location: [place] Accession/Order Number: [id number] Exam Date: 12/18/2024 09:05 Report Date: 12/18/2024 [...] Mary Gordillo M.D.12/18/2024 9:16 AM Dictation Location: [place] [address] Electronically authenticated by: [id number] Y Date: 12/18/2024 09:16 Dictated By: Mary Gordillo M.D. Signed By: 12/18/24918 DD/ 5 TD/TT: Electronic Specialist: Purnima GARCIA HPV,Age Gdln Reviewed date:11/25/2024 09:54:57 AM Interpretation: Performing Lab: Notes/Report: BRUSH-SPATULA CERVIX ENDOCERVIX [facility] , Age Gdln ACOG Testing Note . No. of containers..01 ThinPrep Vial Clinician Provided Cytology Information 01 =G [facility] [place] Source.............Cervix;Endocerv ix Aniya Cook MD, [address] [place] [address] [place] [address] L-Low Normal,H-High Normal,LL-Alert Low,HH-Alert High Age Algo ACOG Tiffany... -17 10 <-Panic Low,>-Panic High,A-Abnormal,AA-Critical Abnormal FLAG LEGEND: Performed at: TESTS RESULT FLAG UNITS REF RANGE LAB IGP, rfx [facility] HPV ASCU Note . should not be used as the sole means of detecting cervical [address] [place] [phone] Helene Costello, Personal Computer Network Engineer ([facility]) Performed at: =[facility] the use of an image guided system. Performed at: [address] [place] [phone] TESTS RESULT FLAG UNITS REF RANGE LAB L-Low Normal,H-High Normal,LL-Alert Low,HH-Alert High DIAGNOSIS: 02 Specimen adequacy: 02 03 [facility] uterine cervix. It is not a diagnostic procedure and Performed at: [facility] Cyto Histo occur. Satisfactory for evaluation. Endocervical and/or squamous metaplastic result therefore, no HPV testing was performed. Note: Note 03 Instructional Services Specialist: Yvan Gibson MD, Phone: [phone] The HPV DNA reflex criteria were not met with this specimen Instructional Services Specialist: Aniya Cook MD, Phone: [phone] FLAG LEGEND: . 02 <-Panic Low,>-Panic High,A-Abnormal,AA-Critical Abnormal detection of premalignant and malignant conditions of the 02 [facility] Cyto Histo Performed by: 02 This liquid based ThinPrep(R) pap test was screened with Aniya Cook MD, cells (endocervical component) are present. [address] [place], [place] [id number] [address] [place] [address] The Pap smear is a screening test designed to aid in the . Yvan Gibson MD, cancer. Both false-positive and false-negative reports do Test Methodology: Note 03 NEGATIVE FOR INTRAEPITHELIAL LESION OR MALIGNANCY. Performing Lab: see note LC - [facility] CBC AUTO DIFF Reviewed date:12/27/2024 12:09:30 PM Interpretation: Performing Lab: Notes/Report: [facility] , White Blood Count 6.1 4.0-11.0 10 3/uL Red Blood Count 4.44 4.20-5.40 10 6/uL Hemoglobin 12.7 12.0-16.0 g/dL Hematocrit 38.5 36.0-48.0 % Mean Corpuscular Volume 86.7 81.0-99.0 fL Mean Corpuscular Hemoglobin 28.6 26.7-34.0 pg Mean Corpuscular HGB Conc 33.0 29.9-35.2 g/dL Red Cell Distribution Width 13.4 11.0-15.0 % Platelet Count 277 150-450 10 3/uL Mean Platelet Volume 10.0 9.5-13.5 fL Neutrophils Percent Auto 61.8 43.0-75.0 % Lymphocytes Percent Auto 29.5 20.5-60.0 % Monocytes Percent Auto 6.7 1.7-12.0 % Eosinophils Percent Auto 1.3 0.9-7.0 % Basophils Percent Auto 0.5 0.2-2.0 % Immature Granulocytes Pct Auto 0.2 0.0-0.5 % Neutrophils Absolute Auto 3.8 1.4-6.5 10 3/uL Lymphocytes Absolute Auto 1.8 1.2-3.8 10 3/uL Monocytes Absolute Auto 0.4 0.3-0.8 10 3/uL Eosinophils Absolute Auto 0.1 0.0-0.7 10 3/uL Basophils Absolute Auto 0.0 0.0-0.1 10 3/uL Immature Granulocytes Abs Auto 0.01 0.00-0.03 10 3/uL Performing Lab: see note ML - [facility] PREG QUANT HCG Reviewed date:12/27/2024 12:09:30 PM Interpretation: Performing Lab: Notes/Report: [facility] , HCG Quantitative <1 5-50 0.2-1 WEEK 15,000-200,000 6-8 WEEKS 500-10,000 3-4 WEEKS 10,000-100,000 5-6 WEEKS 10,000-100,000 2-3 MONTHS 1,000-50,000 4-5 WEEKS 100-5,000 2-3 WEEKS 50-500 1-2 WEEKS Performing Lab: see note ML - [facility] Reason For Referral Diagnosis 1 Low back pain at [facility] sites (M54.50) Referral Organization [facility] Referring Provider First Name Aniket Referring Provider Last Name Chet Referring Provider Speciality [facility] nick Referred Provider Cedric Navarrete Referred Provider Specialty Pain Medicin e Referral Priority Routine Medications Medication SIG (Take, Route, Fr equency, Duration) Notes Start Date End Date Status tiZANidine HCl 4 MG 2 tabs Orally qhs; D uration: 30 days 03/26/2025 Active Gabapentin 600 MG 1 tablet Orally bid; Duration: 30 days Active Social History Tobacco Use: Social History Observation Description Date Details (start date - stop date) Never Smoker NA - NA Tobacco Control (Standard) Question Answer Notes Tobacco use: Nonsmoker AUDIT-C (Standard) Question Answer Notes Did you have a drink containing alcohol in the p ast year? No Points 0 Interpretation Negative Problems Problem Type SNOMED Code ICD Code Onset Dates Problem Status W/U Status Risk Notes Problem Lumbar radiculopathy (657693370) Lumbar radiculopathy (M54.16) Active confirmed Problem Ovarian cyst (83175307) Ovarian cyst (N83.209) Active confirmed Problem Low back pain (finding) (458461194) Low back pain at multiple sites (M54.50) Active confirmed Vital Signs Blood pressure diastolic 100 mm Hg 03/26/2025 Height 64 in 03/26/2025 Blood pressure systolic 132 mm Hg 03/26/2025 Weight 143.0 lbs 03/26/2025 BMI 24.54 kg/m2 03/26/2025 Encounters Encounter Location Date Provider Diagnosis [facility] [address] [place] [address] 03/26/2025 Aniket Hoy Low back pain at multiple sites M54.50 and Lumbar radiculopathy M54.16 [facility] [address] [facility] [place] [address] 12/18/2024 Aniket Hoy [facility] [address] [facility] [place] [place] [address] 03/26/2025 Aniket Hoy Low back pain at multiple sites M54.50 and Lumbar radiculopathy M54.16 [facility] [address] [facility] [place] [place] [address] 03/26/2025 Aniket Hoy [facility] [address] [facility] [address] 04/24/2025 Aniket Hoy Low back pain at multiple sites M54.50 [facility] [address] [facility] [place] [address] 05/23/2025 Aniket Hoy Low back pain at multiple sites M54.50 [facility] [address] [place] [address] 06/24/2025 Aniket Hoy Low back pain at multiple sites M54.50 Assessments Encounter Date Diagnosis (ICD Code) Assessment Notes Treatment Notes Treatment Clinical Notes Section Notes 03/26/2025 Low back pain at multiple sites (ICD-10 - M54.50) 03/26/2025 Lumbar radiculopathy (ICD-10 - M54.16) 03/26/2025 Low back pain at multiple sites (ICD-10 - M54.50) 03/26/2025 Lumbar radiculopathy (ICD-10 - M54.16) 04/24/2025 Low back pain at multiple sites (ICD-10 - M54.50) 05/23/2025 Low back pain at multiple sites (ICD-10 - M54.50) 06/24/2025 Low back pain at multiple sites (ICD-10 - M54.50) Plan Of Treatment No Information Insurance Providers Payer Name Payer Address Payer Phone Subscriber Number Group Number Insured Name Patient Relationship to Insured Coverage Start Date Coverage End Date [employer] [place] [employer] [address] [facility] [place] [address] [id number] Berenice Lopez Self - patient is the insured 3 Medical (General) History Surgical History Surgery Date(Month/Year) Laparoscopic Ovarian Cystomy
--- OUTSIDE RECORDS SUMMARY | 2025-06-24 14:10 | XMS_ITS | CCD ---
Author Organization [facility] Care Team Providers Care Irrigator Overhead Name Role Phone MD Joe Rosenberg Primary Care Provider [phone] MD Donta Stewart Attending Provider [phone] MD Severo Lea Emergency Provider SANDRA ., [...] Unavailable SANDRA ., DR SWANN Admitting Unavailable SADNRA ., DR SWANN Attending Unavailable REQUEST, DR [...] Care Provider Curtis Flores Attending Provider [place], [employer] DEPARTMENT CHIEF-C Melia Primary Care Provider [place], [employer]ATION DEPARTMENT CHIEF-C Melia Attending Provider Jigar Grace MD Primary Care Provider [place] [employer] DEPARTMENT CHIEF, Melia Unavailable Lause LIB[employer]ARY CIRCULATION DEPARTMENT CHIEF, Awilda R Unavailable [phone] [place] [employer] DEPARTMENT CHIEF-C, Melia Primary Care Provider [place] [employer] DEPARTMENT CHIEF-C, Melia Attending Provider [phone] López Coburn MD Emergency Provider [place] [employer] DEPARTMENT CHIEF, Melia Unavailable [place] [employer]ATION DEPARTMENT CHIEF-C, Melia Primary Care Provider [phone] López Coburn MD Emergency Provider Stacy PA-C, Melia L Attending Provider [phone] [place] [employer] DEPARTMENT CHIEF-C, Melia Attending Provider [place], Melia Primary Care Unavailable Warchol, Melia Admitting Unavailable Warchol, Melia Attending Unavailable Warchol, Melia Attending Unavailable Warchol, Melia Primary Care Unavailable Warchol, Melia Admitting Unavailable Warchol, Melia Primary Care Unavailable Stacy, Melia L Attending Unavailable Epps, Melia L Admitting Unavailable Warchol, Melia Attending Unavailable [place]archol, Melia Primary Care Unavailable Warchol, Melia Admitting Unavailable [place]ol, Melia Primary Care Unavailable López Coburn Jr Attending Unavailable López Coburn Jr Admitting Unavailable [place] [employer] DEPARTMENT CHIEF, Melia Unavailable STACY, MELIA Attending Unavailable STACY, MELIA Referring Unavailable STACY, MELIA Attending Unavailable SANDRAMARISOLY Attending Unavailable CURTIS FLORES Attending Unavailable WARCHOL, MELIA Attending Unavailable WARCHOL, MELIA Attending Unavailable WARCHOL, MELIA Attending Unavailable MARISOL FLORESY Attending Unavailable [place] [employer] DEPARTMENT CHIEF-C, Melia Primary Care Provider [phone] López Tomlin MD Attending Provider Medications Current Medications Medication Drug Class(es) Dates Sig (Normalized) Sig (Original) amoxicillin 500 mg oral capsule (11 sources) Penicillin-class Antibacterial Start: 12-18-2024 take 1 capsule by mouth every eight hours amoxicillin (Amoxil) 500 MG capsule TAKE 1 CAPSULE BY MOUTH EVERY 8 HOURS UNTIL GONE 12/18/2024 Active diclofenac sodium 75 mg delayed release oral tablet (7 sources) Nonsteroidal Anti-inflammatory Drug Start: 10-29-2024 take 1 tablet by mouth twice daily Diclofenac Sodium 75 mg tablet,delayed release (DR/EC) Active 75 MG PO Twice daily 60 October 29, 2024 1:00am Complies with drug therapy Start: 12-16-2022 End: 06-18-2024 take 1 tablet by mouth in the morning diclofenac (Voltaren) 75 MG EC tablet Take 75 mg by mouth in the morning and 75 mg before bedtime. 12/16/2022 06/18/2024 Discontinued (Therapy completed) ethinyl estradiol 0.035 mg / norgestimate 0.25 mg oral tablet (16 sources) Progestin, Estrogen Start: 11-21-2024 End: 10-23-2025 [...] Three times daily October 17, 2024 1:00am Complies with drug therapy Start: 08-28-2024 End: 12-23-2024 take 1 capsule [...] (Reorder) ondansetron 4 mg disintegrating oral tablet (15 sources) Serotonin-3 Receptor Antagonist Start: 01-03-2025 End: 02-02-2025 take 1 tablet by mouth every six hours as needed for nausea and vomiting and nausea and nausea ondansetron ODT (Zofran-ODT) 4 MG disintegrating tablet Indications: Nausea Take 1 tablet (4 mg) by mouth every 6 (six) hours if needed for nausea or vomiting 30 tablet 2 01/03/2025 02/02/2025 Active Start: 11-21-2024 End: 12-21-2024 take 1 tablet [...] 15 tablet 06/18/2024 07/27/2024 Discontinued (Therapy completed) tiZANidine 4 mg oral tablet (1 source) Central alpha-2 Adrenergic Agonist Start: 04-10-2025 Tizanidine 4 mg tabl et Active MG PO April 10, 2025 12:00am Complies with drug therapy Completed/Discontinued Medications Medication Drug Class(es) Dates Sig (Normalized) Sig (Original) acetaminophen 325 mg / HYDROcodone bitartrate 5 mg oral tablet (3 sources) Opioid Agonist Start: 11-04-2023 End: 06-18-2024 HYDROcodone-acetam inophen ([place]) 5-325 MG tablet 11/04/2023 06/18/2024 Discontinued (Therapy completed) dicyclomine hydrochloride 10 mg oral capsule (4 sources) Anticholinergic Start: 10-17-2024 End: 10-29-2024 take [...] pantoprazole 20 mg delayed release oral tablet (8 sources) Proton Pump Inhibitor Start: 02-07-2022 End: 10-17-2024 take 1 tablet by mouth once daily Pantoprazole (Protonix) 20 mg Tablet,Delayed Release (Dr/Ec) Discontinued 20 MG PO Daily February 07, 2022 12:00am October 17, 2024 8:52pm promethazine hydrochloride 25 mg oral tablet (8 sources) Phenothiazine Start: 02-07-2022 End: 10-17-2024 take 1 tablet by mouth every six hours as needed for nausea Promethazine 25 mg Tablet Discontinued 25 MG PO Q6H as needed for Nausea 10 February 07, 2022 12:00am October 17, 2024 8:52pm triamcinolone acetonide 1 mg/ml topical cream (4 sources) Corticosteroid Start: 12-16-2022 End: 06-18-2024 triamcinolone (Kenalog) 0.1 % cream APPLY SMALL AMOUNT TO SKIN TWICE A DAY 12/16/2022 06/18/2024 Discontinued (Therapy completed) Problems Active Problems Problem Classification Problem Date Documented Date Episodic/Chronic Abdominal pain (18 sources) Abdominal pain; Translations: [Unspecified abdominal pain] Onset: 11-12-2022 02-07-2022 Episodic Comment on above: Problem List clean-u p per request of Phys. EHR Cmte Administrative/social admission (20 sources) Patient encounter status; Translations: [Other specified counseling] Onset: 10-03-2023 10-03-2023 Episodic Endometriosis (1 source) Endometriosis; Translations: [ENDOMETRIOSIS BILAT OVARY UNS DEPTH] Onset: 11-24-2022 Gastritis and duodenitis (8 sources) Gastritis; Translations: [Gastritis, unspecified, without bleeding] 02-07-2022 Episodic Comment on above: Problem List clean-u p per request of Phys. EHR Cmte Menstrual disorders (1 source) Irregular menstruation, unspecified; Translations: [IRREGULAR MENSTRUATION UNSPECIFIED] Onset: 11-05-2022 Chronic Nausea and vomiting (7 sources) Nausea, vomiting and diarrhea; Translations: [Nausea with vomiting, unspecified] Onset: 10-17-2024 10-17-2024 Episodic Other aftercare (2 sources) Surgical follow-up; Translations: [Encounter for follow-up examination after completed treatment for conditions other than malignant neoplasm] 01-15-2025 Episodic Other and unspecified benign neoplasm (4 sources) Benign neoplasm of left ovary; Translations: [BENIGN NEOPLASM OF LEFT OVARY] Onset: 10-19-2022 Episodic Other and unspecified benign neoplasm (2 sources) Benign neoplasm, unspecified site; Translations: [Benign neoplasm of unspecified site] 02-19-2025 Episodic Other connective tissue disease (2 sources) Cramp; Translations: [Cramp and spasm] 06-18-2024 Episodic Other endocrine disorders (5 sources) Polycystic ovarian syndrome; Translations: [POLYCYSTIC OVARIAN SYNDROME] Onset: 10-15-2022 Chronic Other female genital disorders (1 source) Noninflammatory disorder of ovary, fallopian tube and broad ligament, unspecified; Translations: [OTH NONINFL D/O OVARY TUBE AND BRD LIG] Onset: 10-19-2022 Episodic Other female genital disorders (2 sources) History of gynecological disorder; Translations: [Personal history of other diseases of the female genital tract] 02-19-2025 Episodic Other nervous system disorders (4 sources) Chronic pain; Translations: [Other chronic pain] 10-29-2024 Chronic Other nervous system disorders (3 sources) Other chronic pain; Translations: [Other chronic pain] Onset: 07-25-2024 10-29-2024 Chronic Ovarian cyst (9 sources) Cyst of left ovary; Translations: [Unspecified ovarian cyst, left side] Onset: 11-20-2024 10-22-2024 Episodic Spondylosis; intervertebral disc disorders; other back problems (20 sources) Bilateral inflammation of sacroiliac joint; Translations: [...] Facility US PELVIC COMPLETE W/ TVon 0 02-05-2025 US PELVIC COMPLETE W/ TV EXAM: US PELVIC COMPLETE W/ TV HISTORY: Follow up post laparoscopic cyst removal December 2024, PCOS. COMPARISON: Pelvic ultrasound 11/06/2024. TECHNIQUE: Two-dimensional transabdominal grayscale ultrasound imaging of the pelvis was performed. Color flow Doppler imaging of the ovaries was also performed. Transvaginal was performed. FINDINGS: UTERUS 8.6 x 4.1 x 5.6 cm The uterus is anteverted in position and demonstrates a normal, homogeneous echotexture. ENDOMETRIUM 1.1 cm The endometrium demonstrates a normal, homogeneous echotexture. RIGHT OVARY 5.9 x 2.6 x 3.8 cm The right ovary demonstrates a normal echotexture. The ovarian volume is 30 mL. There is normal color Doppler flow. LEFT OVARY 4.9 x 3.5 x 3.9 cm The left ovary demonstrates a normal echotexture. The ovarian volume is 36 mL. There is normal color Doppler flow. There is a 2.9 cm dominant follicle visualized. There is a 2.8 cm avascular, hypoechoic lesion visualized. No fluid is present within the cul-de-sac. IMPRESSION: 1. Bilateral increased ovarian volumes, consistent with polycystic ovarian syndrome. 2.Avascular, hypoechoic left ovarian lesion. This lesion appears to have decreased in size when compared to the prior study and most likely represents a complex/dermoid cyst. 3. Complex left ovarian cyst noted on the prior study has since resolved. 4. Normal color Doppler flow within the bilateral ovaries. Interpreted by: Electronically signed by BRYN FOX II, MD, PHD at 05-Feb-2025 11:00:07 PM [facility] Normal Not Available Comment on above: Order Comment: US PE LVIS-TRANSVAG IF INDICATED No LMP recorded. HCG QUALITATIVE*on 5 [facility] , QUAL Negative NEGATIVE [facility] ALL CBC WITH AUTO DIFFon BASOPHILS ABSOLUTE AUTO 0 N [facility] Basophils/100 WBC (Bld) 0.5 % 0.2 - 2.0 % [facility] Eosinophils/100 WBC (Bld) 1.3 % 0.9 - 7.0 % [facility] Erythrocyte distribution width (RBC) [Ratio] 13.4 % 11.0 - 15.0 % [facility] Hematocrit (Bld) [Volume fraction] 38.5 % 36.0 - 48.0 % [facility] Hemoglobin (Bld) [Mass/Vol] 12.7 g/dL 12.0 - 16.0 g/dL [facility] IMMATURE GRANULOCYTES ABS AUTO 0.01 [facility] Immature granulocytes/100 WBC (Bld) 0.2 % 0.0 - 0.5 % [facility] LYMPHOCYTES ABSOLUTE AUTO 1.8 [facility] Lymphocytes/100 WBC (Bld) 29.5 % 20.5 - 60.0 % [facility] MCH (RBC) [Entitic mass] 28.6 pg 26. 7 - 34.0 pg [facility] MCHC (RBC) [Mass/Vol] 33 g/dL 29.9 - 35.2 g/dL [facility] MCV (RBC) [Entitic vol] 86.7 fL 81.0 - 99.0 fL [facility] MONOCYTES ABSOLUTE AUTO 0.4 N [facility] Monocytes/100 WBC (Bld) 6.7 % 1.7 - 12.0 % [facility] NEUTROPHILS ABSOLUTE AUTO 3.8 [facility] Neutrophils/100 WBC (Bld) 61.8 % 43.0 - 75.0 % [facility] Platelet mean volume (Bld) [Entitic vol] 10 fL 9.5 - 13.5 fL [facility] TBH EO # 0.1 [facility] TBH PLT 277 [facility] TBH RBC 4.44 [facility]H WBC 6.1 [facility] ALL LDHon 12-20-2024 LDH [Catalytic activity/Vol] 130 U/L 81 - 234 U/L [facility] US PELVIS W/ TRANSVAGINALon 12-18-2024 [place] [address] Ultrasound Report Signed Patient: BERENICE LOPEZ MR#: [id number] : 2005 Acct:[id number] Age/Sex: 19 / F ADM Date: 12/18/24 Loc: US Attending Dr: Melia Potter Ordering Physician: Melia Potter Date of Service: 12/18/24 Procedure(s): US pelvis w/ transvaginal Accession Number(s): [id number] cc: Melia Potter; Joe Rosenberg M.D. The [address] [address] Patient Name: BERENICE LOPEZ MRN: [id number] date: 2005 Sex: F Assigned Patient Location: Current Patient Location: US Accession/Order Number: [id number] Exam Date: 12/18/2024 09:05 Report Date: 12/18/2024 [...] Mary Gordillo M.D.12/18/2024 9:16 AM Dictation Location: [place] [address] Electronically authenticated by: [id number] Y Date: 12/18/2024 09:16 Dictated By: Mary Gordillo M.D. Signed By: 12/18/2419 DD/ 5 TD/TT: Bending Shed Worker: Missael Lozano MD - 12/18/2024 [place] [address] Ultrasound Report Signed Patient: BERENICE LOPEZ MR#: [id number] : 2005 Acct:[id number] Age/Sex: 19 / F ADM Date: 12/18/24 Loc: US Attending Dr: Melia Potter Ordering Physician: Melia Potter Date of Service: 12/18/24 Procedure(s): US pelvis w/ transvaginal Accession Number(s): [id number] cc: Melia Potter; Joe Rosenberg M.D. The [place] [address] Patient Name: BERENICE LOPEZ MRN: [facility]:[id number] date: 2005 Sex: F Assigned Patient Location: US Current Patient Location: US Accession/Order Number: [id number] Exam Date: 12/18/2024 09:05 Report Date: 12/18/2024 [...] Mary Gordillo M.D.12/18/2024 9:16 AM Dictation Location: [place] [address] Electronically authenticated by: [id number] Y Date: 12/18/2024 09:16 Dictated By: Mary Gordillo M.D. Signed By: 12/18/24 0919 DD/ 0916 TD/TT: Bending Shed Worker: [facility] Radiology Study observation (narrative) [facility] US PELVIS W/ TRANSVAGINALOrd ered By: Radiologist Radiology on 12-18-2024 [facility] Work Phone: MR lumbar spine wo conon MR lumbar spine wo con [facility] [place] [address] MRI Report Signed Patient: Berenice Lopez MR#: [id number] : 2005 Acct:[id number] Age/Sex: 19 / F ADM Date: 12/12/24 Loc: [facility] Room: Type: [facility] Attending Dr: Melia Mantilla [employer] DEPARTMENT CHIEF-C Copies to: Melia Mantilla CNP Ordering Provider: [...] foraminal narrowing. L4-5: Circumferential disc bulge with spuq-lg-pertzjaq facet arthropathy. Excs-ck-hzzbzjbn left- sided mild right-sided neural foraminal narrowing. [...] Olman Rondon M.D.12/12/2024 11:49 AM Dictation Location: [place] [address] Transcribed By: CECIL 12/12/24 1149 Dictated By: Olman Rondon MD 12/12/24 1135 Signed By: 12/12/24 1149 Normal [facility] Magnetic resonance imaging r eportOrdered By: Olman Rondon on 12-12-2024 Study report [facility] Main [place] [address] [place], [place] [id number] MRI Report Signed Patient: Berenice Lopez MR#: [id number] : 2005 Acct:[id number] Age/Sex: 19 / F ADM Date: 5 Loc: [facility] Room: Type: [facility] Attending Dr: Melia Mantilla [employer] CIRC[employer]ATION DEPARTMENT CHIEF-C Copies to: Melia Mantilla CNP~ Ordering Provider: [...] foraminal narrowing. L4-5: Circumferential disc bulge with tgck-ss-qycmtkmg facet arthropathy. Yceu-zk-jqcinqym left-sided mild right-sided neural foraminal narrowing. Mild [...] Olman Rondon M.D.12/12/2024 11:49 AM Dictation Location: [place] [address] Transcribed By: [facility] 12/12/24 1149 Dictated By: Olman Rondon MD 12/12/24 1135 Signed By: 12/12/24 1149 [facility] Work Phone: AFP Tumor Marker, Serumon AFP Tumor Marker, Serum 5.7 ng/mL High 0.0-4.7 T he [facility] Comment on above: Result Comment: Conatix Electrochemiluminescence Immunoassay (ECLIA) Values obtained with different assay methods or kits cannot be used interchangeably. Results cannot be interpreted as absolute evidence of the presence or absence of malignant disease. This test is not interpretable in females. Performed By: #### C EA, HCGQNT #### [address] #### AFPTM, CA125, LDI #### [facility] , CEA ser/plasOrdered By: Melia Mantilla on 11-20-2024 Carcinoembryonic Ag [Mass/Vol] Serum or plasma carcinoembryonic antigen measurement (mass/volume) 0.0-3.0 [facility] Comment on above: Serial tumor marker results determined by assays using different manufacturers or methods may not be comparable.[facility] quality systems engineer and method:NILS UNICEL DXI, 2 SITE IMMUNOENZYMATIC SANDWICH ASSAY. Cancer Antigen 125on 025 Cancer Antigen 125 22.2 Normal 0.0-38.1 [facility] Comment on above: Result Comment: Conatix Electrochemiluminescence Immunoassay (ECLIA) Values obtained with different assay methods or kits cannot be used interchangeably. Results cannot be interpreted as absolute evidence of the presence or absence of malignant disease. Performed at: [address] [id number] Clinical Dental Technician: Ced Masters PhD, Phone: [phone] Performed By: #### C EA, HCGQNT #### [address] #### AFPTM, CA125, LDI #### [facility] , Choriogonadotropin.beta subu nit [Units/volume] in Serum or PlasmaOrdered By: Melia Mantilla on 11-20-2024 HCG.beta subunit Qn Choriogonadotropin.b eta subunit [Units/volume] in Serum or Plasma [facility] Comment on above: Approximate Approxim ate hCG Gestational Age Range (mIU/ml) (weeks)0.2-1 5-50 1-2 50-500 2-3 100-5,000 3-4 500-10,000 4-5 1,000-50,000 5-6 10,000-100,000 6-8 15,000-200,000 8-12 10,000-100,000 HCG,Quantitativeon HCG,Quantitative <0.60 Normal [facility] Comment on above: Result Comment: Appr oximate Approximate hCG Gestational Age Range (mIU/ml) (weeks) 0.2-1 5-50 1-2 50-500 2-3 100-5,000 3-4 500-10,000 4-5 1,000-50,000 5-6 10,000-100,000 6-8 15,000-200,000 8-12 10,000-100,000 PERFORMED BY: [place] [address] PATHOLOGIST DEPUTY FELONY CLERK CORNELIUS MARK M.D. Performed By: #### C EA, HCGQNT #### [place] [address] [place] #### AFPTM, CA125, LDI #### [facility] , LD Isoenzymeson 11-20-2024 LD1 Isoenzyme 24 % Normal 17-32 [facility] Comment on above: Performed By: #### C EA, HCGQNT #### [address] #### AFPTM, CA125, LDI #### [facility] , LD2 Isoenzyme 33 % Normal 25-40 [facility] Comment on above: Performed By: #### C EA, HCGQNT #### [address] #### AFPTM, CA125, LDI #### [facility] , LD3 Isoenzyme 20 % Normal 17-27 [facility] Comment on above: Performed By: #### C EA, HCGQNT #### [address] #### AFPTM, CA125, LDI #### [facility] , LD4 Isoenzyme 12 % Normal 5-13 [facility] Comment on above: Performed By: #### C EA, HCGQNT #### [address] #### AFPTM, CA125, LDI #### [facility] , LD5 Isoenzyme 11 % Normal 4-20 [facility] Comment on above: Result Comment: Perf ormed at: - [facility] [address] [id number] Clinical Dental Technician: Ced Masters PhD, Phone: [phone] Performed at: - [facility] [id number] Clinical Dental Technician: Klever Echevarria MD, Phone: [phone] PERFORMED BY: [place] [address] PATHOLOGIST DEPUTY FELONY CLERK CORNELIUS MARK M.D. Performed By: #### C EA, HCGQNT #### [address] #### AFPTM, CA125, LDI #### [facility] , Total LD/Isoenzymes 148 Normal 119-226 [facility] Comment on above: Performed By: #### C EA, HCGQNT #### [facility] [address] #### AFPTM, CA125, LDI #### [facility] , Lactate dehydrogenase isoenz yme 1 measurementOrdered By: Melia Mantilla on 11-20-2024 LDH 1 Elph [Catalytic fraction] Lactate dehydrogenase isoenzyme 1 measurement 17-32 [facility] Lactate dehydrogenase isoenz yme 2 measurementOrdered By: Melia Warchol on 11-20-2024 LDH 2 Elph [Catalytic fraction] Lactate dehydrogenase isoenzyme 2 measurement 25-40 [facility] Lactate dehydrogenase isoenz yme 3 measurementOrdered By: Melia Warchol on 11-20-2024 LDH 3 Elph [Catalytic fraction] Lactate dehydrogenase isoenzyme 3 measurement 17-27 [facility] Lactate dehydrogenase isoenz yme 4 measurementOrdered By: Melia Warchol on 11-20-2024 LDH 4 Elph [Catalytic fraction] Lactate dehydrogenase isoenzyme 4 measurement 5-13 [facility] Lactate dehydrogenase isoenz yme 5 measurementOrdered By: Melia Warchol on 11-20-2024 LDH 5 Elph [Catalytic fraction] Lactate dehydrogenase isoenzyme 5 measurement 4-20 [facility] Comment on above: Performed at: [address] [id number] Director: Ced Masters PhD, Phone: [phone] at: [address] [id number] Director: Klever Echevarria MD, Phone: [phone] Serum or plasma mbnpf-9-hffm protein tumor marker measurement (mass/volume)Ordered By: Melia Mantilla on 11-20-2024 AFP.tumor marker [Mass/Vol] Serum or plasma tjesa-6-mgdzcgmlvik tumor marker measurement (mass/volume) High 0.0-4.7 [facility] Comment on above: [facility] [...] er antigen 125 (CA-125) measurement (units/volume) 0.0-38.1 [facility] Comment on above: [facility] El ectrochemiluminescence Immunoassay(ECLIA)Values obtained with different assay methods or kits cannotbe used interchangeably. Results cannot be interpreted asabsolute evidence of the presence or absence of malignantdisease.Performed at: [facility] [id number] [place], [place] [id number] Director: Ced Masters PhD, Phone: [phone] Total lactic dehydrogenase ( LDH) and isoenzymes measurementOrdered By: Melia Mantilla on 11-20-2024 LDH panel Total lactic dehydrogenase (LDH) and isoenzymes measurement 119-226 [facility] US PELVIC COMPLETE W/ TVon [...] II, MD, PHD at 07-Nov-2024 08:03:54 AM [facility] Normal Not Available Comment on above: Order Comment: US PE LVIS-TRANSVAG IF INDICATED No LMP recorded. HCG ( test) Ql (U)o n 10-22-2024 Interpretation and review of laboratory results Normal [facility] Preg Test, Ur Negative Negative [facility] Alanine aminotransferase [En zymatic activity/volume] in Serum or PlasmaOrdered By: López Coburn on 10-17-2024 ALT [Catalytic activity/Vol] Alanine aminotransferase [Enzymatic activity/volume] in Serum or Plasma 7-52 [facility] Albumin [Mass/volume] in Ser um or Plasma by Bromocresol green (BCG) dye binding methoOrdered By: López Coburn on 10-17-2024 Albumin BCG dye [Mass/Vol] Albumin [Mass/volume] in Serum or Plasma by Bromocresol green (BCG) dye binding metho 3.5-5.7 [facility] Alkaline phosphatase [Enzyma tic activity/volume] in Serum or PlasmaOrdered By: López Coburn on 10-17-2024 ALP [Catalytic activity/Vol] Alkaline phosphatase [Enzymatic activity/volume] in Serum or Plasma 34-104 [facility] Appearance of UrineOrdered B y: López Coburn on 10-17-2024 Appearance (U) Urine appearance Abnormal [facility] Aspartate aminotransferase [ Enzymatic activity/volume] in Serum or PlasmaOrdered By: López Coburn on 10-17-2024 AST [Catalytic activity/Vol] Aspartate aminotransferase [Enzymatic activity/volume] in Serum or Plasma 13-39 [facility] Bacteria [Presence] in Urine by AutomatedOrdered By: López Coburn on 10-17-2024 Bacteria Auto Ql (U) Bacteria [Presence] in Urine by Automated None Seen [facility] [facility] Auto (Bld) [#/Vol] Ordered By: López Coburn on 10-17-2024 Basophils (Bld) [#/Vol] Automated basophil count 0.0-0.2 [facility] Basophils/100 WBC Auto (Bld) Ordered By: López Coburn on 10-17-2024 Basophils/100 WBC (Bld) Automated basophil % . [facility] Bilirubin Test strip Ql (U)O rdered By: López Coburn on 10-17-2024 Bilirubin Ql (U) Bilirubin.total [Presence] in Urine by Test strip Negative [facility] Bilirubin.total [Mass/volume ] in Serum or PlasmaOrdered By: López Coburn on 10-17-2024 Bilirubin [Mass/Vol] Bilirubin.total [Mass/volume] in Serum or Plasma 0.3-1.0 [facility] Calcium [Mass/volume] in Ser um or PlasmaOrdered By: López Coburn on 10-17-2024 Calcium [Mass/Vol] Calcium [Mass/volume ] in Serum or Plasma High 8.6-10.3 [facility] Carbon dioxide, total [Moles /volume] in Serum or PlasmaOrdered By: López Coburn on 10-17-2024 CO2 [Moles/Vol] Carbon dioxide, tota l [Moles/volume] in Serum or Plasma 21.0-31.0 [facility] Chloride [Moles/volume] in [place] or PlasmaOrdered By: López Coburn on 10-17-2024 Chloride [Moles/Vol] Chloride [Moles/vol ume] in Serum or Plasma 98-107 [facility] Color Auto (U)Ordered By: Vidal Coburn on 10-17-2024 Color (U) Color of Urine by [facility] Blood Count Auto Di ffon 10-17-2024 Basophils (Bld) [#/Vol] 0.0 10*3/uL Normal 0.0-0.2 [facility] Comment on above: Result Comment: PERF ORMED BY: [facility] [address] [place] [address] PATHOLOGIST DEPUTY FELONY CLERK CORNELIUS MARK M.D. Performed By: #### C BC, CMP ####[facility] Basophils/100 WBC (Bld) 0.3 % Normal . T pete [facility] Comment on above: Performed By: #### C BC, CMP ####[address] Eosinophils (Bld) [#/Vol] 0.0 10*3/uL Normal 0.0-0.45 [facility] Comment on above: Performed By: #### C BC, CMP ####[address] Eosinophils/100 WBC (Bld) 0.1 % Normal . [facility] Comment on above: Performed By: #### C JACKIE, CMP ####[address] Erythrocyte distribution width (RBC) [Ratio] 13.5 % Normal 11.9-15.3 [facility] Comment on above: Performed By: #### C JACKIE, CMP ####[address] Hematocrit (Bld) [Volume fraction] 40.4 % Normal 34.0-46.4 [facility] Comment on above: Performed By: #### C JACKIE, CMP ####[address] Hemoglobin (Bld) [Mass/Vol] 13.9 g/dL Normal 11.8-15.4 [facility] Comment on above: Performed By: #### C BC, CMP ####[address] Lymphocytes (Bld) [#/Vol] 1.4 10*3/uL Normal 1.00-4.8 [facility] Comment on above: Performed By: #### C BC, CMP ####[address] Lymphocytes/100 WBC (Bld) 20.3 % Normal . [facility] Comment on above: Performed By: #### C BC, CMP ####[address] MCH (RBC) [Entitic mass] 29.1 pg Normal 24.7-34.3 [facility] Comment on above: Performed By: #### C JACKIE, CMP ####[address] MCV (RBC) [Entitic vol] 84.6 fL Normal 80-100 [facility] Comment on above: Performed By: #### C JACKIE, CMP ####[address] Mean Corpuscular HGB Conc 34.4 g/dL Normal 32.0-35.0 [facility] Comment on above: Performed By: #### C JACKIE, CMP ####[address] Monocytes (Bld) [#/Vol] 0.7 10*3/uL Normal 0.0-0.8 [facility] Comment on above: Performed By: #### C JACKIE, CMP ####[address] Monocytes/100 WBC (Bld) 17.74 % Normal 0.00-20.00 [facility] Comment on above: Performed By: #### C JACKIE, CMP ####[address] Monocytes/100 WBC (Bld) 9.6 % Normal . [facility] Comment on above: Performed By: #### C JACKIE, CMP ####[address] Neutrophils (Bld) [#/Vol] 4.8 10*3/uL Normal 1.8-7.7 [facility] Comment on above: Performed By: #### C JACKIE, CMP ####[address] Neutrophils/100 WBC (Bld) 69.7 % Normal . [facility] Comment on above: Performed By: #### C JACKIE, CMP ####[address] NRBC% 0.1 /100{WBC} Normal 0-0.5 [facility] Comment on above: Performed By: #### C BC, CMP ####[address] Platelet mean volume (Bld) [Entitic vol] 8.0 fL Normal 6.3-10.7 [facility] Comment on above: Performed By: #### C BC, CMP ####[address] Platelets (Bld) [#/Vol] 253 10*3/uL Normal 150-450 [facility] Comment on above: Performed By: #### C JACKIE, CMP ####[address] RBC (Bld) [#/Vol] 4.77 10*6/uL Normal 3.60-5.00 [facility] Comment on above: Performed By: #### C BC, CMP ####[address] WBC (Bld) [#/Vol] 7.0 10*3/uL Normal 3.8-11.6 [facility] Comment on above: Performed By: #### C JACKIE, CMP ####[address] Comprehensive Metabolic Pane emigdio 10-17-2024 Albumin [Mass/Vol] 4.7 g/dL Normal 3.5-5.7 [facility] Comment on above: Performed By: #### C BC, CMP ####[address] Albumin/Globulin [Mass ratio] 1.7 {ratio} Normal [facility] Comment on above: Performed By: #### C BC, CMP ####[address] ALP [Catalytic activity/Vol] 44 U/L Normal 34-104 [facility] Comment on above: Performed By: #### C BC, CMP ####[address] [place] [address] [place] ALT [Catalytic activity/Vol] 10 U/L Normal 7-52 [facility] Comment on above: Performed By: #### C BC, CMP ####[address] Anion gap [Moles/Vol] 14.7 mmol/L Normal 6.0-15.0 Th e [facility] Comment on above: Performed By: #### C BC, CMP ####[address] AST [Catalytic activity/Vol] 13 U/L Normal 13-39 [facility] Comment on above: Performed By: #### C BC, CMP ####[address] Bilirubin [Mass/Vol] 0.4 mg/dL Normal 0.3-1.0 [facility] Comment on above: Performed By: #### C BC, CMP ####[address] Calcium [Mass/Vol] 10.4 mg/dL High 8.6-10.3 [facility] Comment on above: Performed By: #### C BC, CMP ####[address] Chloride [Moles/Vol] 106 mmol/L Normal 98-107 [facility] Comment on above: Performed By: #### C BC, CMP ####[address] CO2 [Moles/Vol] 23.3 mmol/L Normal 21.0-31.0 [facility] Comment on above: Performed By: #### C BC, CMP ####[address] Creatinine [Mass/Vol] 0.77 mg/dL Normal 0.60-1.20 [facility] Comment on above: Performed By: #### C BC, CMP ####[address] Creatinine Clr Calc Pharmacy 109.29 Normal [facility] Comment on above: Result Comment: PERF ORMED BY: [facility] [address] [place] [place] [id number] PATHOLOGIST DEPUTY FELONY CLERK CORNELIUS MARK M.D. Performed By: #### C BC, CMP ####[address] [address] [facility] GFR/1.73 sq M.predicted MDRD (S/P/Bld) [Vol rate/Area] mL/min/{1.73_m2} Normal [facility] Comment on above: Performed By: #### C BC, CMP ####[place] [id number] [facility] Globulin (S) [Mass/Vol] 2.7 g/dL Normal [facility] Comment on above: Performed By: #### C BC, CMP ####[place] [id number] [facility] Glucose [Mass/Vol] 89 mg/dL Normal 70-100 [facility] Comment on above: Result Comment: [facility] Glucose Reference Range is dependent on time and content of last meal. Glucose of more than 200 mg/dL in a nonstressed, ambulatory subject supports the diagnosis of Diabetes Mellitus. ADA recommended reference range Performed By: #### C BC, CMP ####[place] [id number] [facility] Potassium [Moles/Vol] 4.0 mmol/L Normal 3.5-5.1 [facility] Comment on above: Performed By: #### C BC, CMP ####[place] [id number] [facility] Protein [Mass/Vol] 7.4 g/dL Normal 6.4-8.9 [facility] Comment on above: Performed By: #### C BC, CMP ####[place] [id number] [facility] Sodium [Moles/Vol] 140 mmol/L Normal 136-145 [facility] Comment on above: Performed By: #### C BC, CMP ####[address] [place] [address] [place] Urea nitrogen [Mass/Vol] 15 mg/dL Normal 7-25 [facility] Comment on above: Performed By: #### C BC, CMP ####[facility] Creatinine [Mass/volume] in Serum or PlasmaOrdered By: López Coburn on 10-17-2024 Creatinine [Mass/Vol] Creatinine [Mass/v olume] in Serum or Plasma 0.60-1.20 [facility] Dipstick and Microscopicon 0 10-17-2024 Appearance (U) Cloudy Critically abnormal Clear [facility] Comment on above: Order Comment: Name Collection Type:: Clean-Voided Midstream Performed By: #### A DDONUAPLUS, UHCG #### [facility] [address] Bacteria,Urine Rare Normal None Seen [facility] Comment on above: Order Comment: Name Collection Type:: Clean-Voided Midstream Performed By: #### A DDONUAPLUS, UHCG #### [facility] [address] [place] [address] [place] Bilirubin,Urine Negative Normal Negative [facility] Comment on above: Order Comment: Name Collection Type:: Clean-Voided Midstream Performed By: #### A DDONUAPLUS, UHCG #### [facility] [address] [place] [id number] [facility] Color (U) Yellow Normal Yellow [facility] Comment on above: Order Comment: Name Collection Type:: Clean-Voided Midstream Performed By: #### A DDONUAPLUS, UHCG #### [facility] [address] [place] [id number] [place] Glucose Ql (U) Normal Normal Normal [facility] Comment on above: Order Comment: Name Collection Type:: Clean-Voided Midstream Performed By: #### A DDONUAPLUS, UHCG #### [facility] [address] [place] [id number] [place] Hyaline Casts,Urine 9 [LPF] High 0-8 [facility] Comment on above: Order Comment: Name Collection Type:: Clean-Voided Midstream Performed By: #### A DDONUAPLUS, UHCG #### [address] Ketones Ql (U) 2+ High Negative [facility] Comment on above: Order Comment: Name Collection Type:: Clean-Voided Midstream Performed By: #### A DDONUAPLUS, UHCG #### [address] Leukocyte esterase Test strip Ql (U) Negative Normal Negative [facility] Comment on above: Order Comment: Name Collection Type:: Clean-Voided Midstream Performed By: #### A DDONUAPLUS, UHCG #### [address] Mucus,Urine 4+ Critically abnormal [facility] Comment on above: Order Comment: Name Collection Type:: Clean-Voided Midstream Performed By: #### A DDONUAPLUS, UHCG #### [address] Nitrite,Urine Negative Normal Negative [facility] Comment on above: Order Comment: Name Collection Type:: Clean-Voided Midstream Performed By: #### A DDONUAPLUS, UHCG #### [address] Occult Blood,Urine Negative Normal Negative [facility] Comment on above: Order Comment: Name Collection Type:: Clean-Voided Midstream Performed By: #### A DDONUAPLUS, UHCG #### [address] pH (U) 6.0 [pH] Normal 5.0-9.0 [facility] Comment on above: Order Comment: Name Collection Type:: Clean-Voided Midstream Performed By: #### A DDONUAPLUS, UHCG #### [address] Protein (U) [Mass/Vol] 30 mg/dL High Negative [facility] Comment on above: Order Comment: Name Collection Type:: Clean-Voided Midstream Performed By: #### A DDONUAPLUS, UHCG #### [address] RBC,Urine 1 [HPF] Normal 0-4 [facility] Comment on above: Order Comment: Name Collection Type:: Clean-Voided Midstream Performed By: #### A DDONUAPLUS, UHCG #### [address] Specificy Seale,Urine 1.039 High 1.00 1-1.03 0 [facility] Comment on above: Order Comment: Name Collection Type:: Clean-Voided Midstream Performed By: #### A DDONUAPLUS, UHCG #### [address] Squamous Epithelial Cell,Urine 10 [HPF] High 0-2 [facility] Comment on above: Order Comment: Name Collection Type:: Clean-Voided Midstream Performed By: #### A DDONUAPLUS, UHCG #### [address] Urobilinogen,Urine 2 mg/dL High Normal [facility] Comment on above: Order Comment: Name Collection Type:: Clean-Voided Midstream Performed By: #### A DDONUAPLUS, UHCG #### [address] WBC,Urine 3 [HPF] Normal 0-4 [facility] Comment on above: Order Comment: Name Collection Type:: Clean-Voided Midstream Performed By: #### A DDONUAPLUS, UHCG #### [place] [address] [place] Eosinophils Auto (Bld) [#/Vo l]Ordered By: López Coburn on 10-17-2024 Eosinophils (Bld) [#/Vol] Automated eosinophil count 0.0-0.45 [facility] Eosinophils/100 WBC Auto (Bl d)Ordered By: López Coburn on 10-17-2024 Eosinophils/100 WBC (Bld) Automated eosinophil % . [facility] Epithelial cells.squamous [# /area] in Urine sediment by Automated countOrdered By: López Coburn on 10-17-2024 Epithelial cells.squamous Auto (Urine sed) [#/Area] Epithelial cells.squamous [#/area] in Urine sediment by Automated count High 0-2 [facility] Erythrocyte distribution wid th Auto (RBC) [Ratio]Ordered By: López Coburn on 10-17-2024 Erythrocyte distribution width (RBC) [Ratio] Erythrocyte distribution width [Ratio] by Automated count 11.9-15.3 [facility] Erythrocytes [#/area] in Uri ne sediment by Automated countOrdered By: López Coburn on 10-17-2024 RBC Auto (Urine sed) [#/Area] Erythrocytes [#/area] in Urine sediment by Automated count 0-4 [facility] Globulin Calc (S) [Mass/Vol] Ordered By: López Coburn on 10-17-2024 Globulin (S) [Mass/Vol] Serum globulin measurement by calculation (mass/volume) [facility] Glucose [Mass/volume] in Ser um or PlasmaOrdered By: López Coburn on 10-17-2024 Glucose [Mass/Vol] Glucose [Mass/volume ] in Serum or Plasma 70-100 [facility] Comment on above: ADA recommended [...] Urine by Test strip Normal [facility] HCG ( test) IA.rapi d Ql (U)Ordered By: López Coburn on 10-17-2024 HCG ( test) Ql (U) Urine human chorionic gonadotropin (hCG) detection by immunoassay [facility] HCG,Urineon 10-17-2024 Beta HCG ( test) Ql (U) Negative Normal [facility] Comment on above: Order Comment: Name Collection Type:: Clean-Voided Midstream Result Comment: PERF ORMED BY: [facility] [address] [place] [address] PATHOLOGIST DEPUTY FELONY CLERK CORNELIUS MARK M.D. Performed By: #### A DDONUAPLUS, [facility] #### [address] Hematocrit Auto (Bld) [Volum e fraction]Ordered By: López Coburn on 10-17-2024 Hematocrit (Bld) [Volume fraction] Hematocrit [Volume Fraction] of Blood by Automated count 34.0-46.4 [facility] Hemoglobin Test strip Ql (U) Ordered By: López Coburn on 10-17-2024 Hemoglobin Ql (U) Hemoglobin [Presence ] in Urine by Test strip Negative [facility] Hemoglobin [Mass/volume] in BloodOrdered By: López Coburn on 10-17-2024 Hemoglobin (Bld) [Mass/Vol] Hemoglobin [Mass/volume] in Blood 11.8-15.4 [facility] Hyaline casts [#/area] in Ur ine sediment by Automated countOrdered By: López Coburn on 10-17-2024 Hyaline casts Auto (Urine sed) [#/Area] Hyaline casts [#/area] in Urine sediment by Automated count High 0-8 [facility] Ketones Test strip Ql (U)Ord ered By: López Coburn on 10-17-2024 Ketones Ql (U) Ketones [Presence] i n Urine by Test strip High Negative [facility] Leukocyte esterase [Presence ] in Urine by Test stripOrdered By: López Coburn on 10-17-2024 Leukocyte esterase Test strip Ql (U) Leukocyte esterase [Presence] in Urine by Test strip Negative [facility] Leukocytes [#/area] in Urine sediment by Automated countOrdered By: López Coburn on 10-17-2024 WBC Auto (Urine sed) [#/Area] Leukocytes [#/area] in Urine sediment by Automated count 0-4 [facility] Leukocytes [#/volume] correc nicole for nucleated erythrocytes in Blood by Automated counOrdered By: López Coburn on 10-17-2024 WBC corrected for nucl RBC Auto (Bld) [#/Vol] Leukocytes [#/volume] corrected for nucleated erythrocytes in Blood by Automated coun 3.8-11.6 [facility] Lymphocytes Auto (Bld) [#/Vo l]Ordered By: López Coburn on 10-17-2024 Lymphocytes (Bld) [#/Vol] Lymphocytes [#/volume] in Blood by Automated count 1.00-4.8 [facility] Lymphocytes/100 WBC Auto (Bl d)Ordered By: López Coburn on 10-17-2024 Lymphocytes/100 WBC (Bld) Lymphocytes/100 leukocytes in Blood by Automated count . [facility] MCH Auto (RBC) [Entitic mass ]Ordered By: López Coburn on 10-17-2024 MCH (RBC) [Entitic mass] MCH [Entitic ma ss] by Automated count 24.7-34.3 [facility] MCHC Auto (RBC) [Mass/Vol]Or dered By: López Coburn on 10-17-2024 MCHC (RBC) [Mass/Vol] MCHC [Mass/volume] by Automated count 32.0-35.0 [facility] MCV Auto (RBC) [Entitic vol] Ordered By: López Coburn on 10-17-2024 MCV (RBC) [Entitic vol] MCV [Entitic vol ume] by Automated count 80-100 [facility] Monocyte distribution width [Entitic volume] in Blood by AutomatedOrdered By: López Coburn on 10-17-2024 Monocyte distribution width Auto (Bld) [Entitic vol] Monocyte distribution width [Entitic volume] in Blood by Automated 0.00-20.00 [facility] Monocytes Auto (Bld) [#/Vol] Ordered By: López Coburn on 10-17-2024 Monocytes (Bld) [#/Vol] Automated blood monocyte count 0.0-0.8 [facility] Monocytes/100 WBC Auto (Bld) Ordered By: López Coburn on 10-17-2024 Monocytes/100 WBC (Bld) Automated monocyte % . [facility] Mucus [Presence] in Urine by AutomatedOrdered By: López Coburn on 10-17-2024 Mucus Auto Ql (U) Mucus [Presence] in Urine by Automated Abnormal [facility] Neutrophils Auto (Bld) [#/Vo l]Ordered By: López Coburn on 10-17-2024 Neutrophils (Bld) [#/Vol] Neutrophils [#/volume] in Blood by Automated count 1.8-7.7 [facility] Neutrophils/100 WBC Auto (Bl d)Ordered By: López Coburn on 10-17-2024 Neutrophils/100 WBC (Bld) Automated neutrophil % . [facility] Nitrite Test strip Ql (U)Ord ered By: López Coburn on 10-17-2024 Nitrite Ql (U) Nitrite [Presence] i n Urine by Test strip Negative [facility] No Panel InformationOrdered By: López Coburn on 10-17-2024 Estimated GFR (CKD-EPI) > 60.0 mL/Min [facility] Pharmacy Creatinine Clearance (Chem 109.29 [facility] Nucleated erythrocytes [Pres ence] in Blood by Automated countOrdered By: López Coburn on 10-17-2024 Nucleated RBC Auto Ql (Bld) Nucleated erythrocytes [Presence] in Blood by Automated count 0-0.5 [facility] Platelet mean volume Auto (B ld) [Entitic vol]Ordered By: López Coburn on 10-17-2024 Platelet mean volume (Bld) [Entitic vol] Platelet mean volume [Entitic volume] in Blood by Automated count 6.3-10.7 [facility] Platelets Auto (Bld) [#/Vol] Ordered By: López Coburn on 10-17-2024 Platelets (Bld) [#/Vol] Platelets [#/vol ume] in Blood by Automated count 150-450 [facility] Potassium [Moles/volume] in Serum or PlasmaOrdered By: López Coburn on 10-17-2024 Potassium [Moles/Vol] Potassium [Moles/v olume] in Serum or Plasma 3.5-5.1 [facility] Protein Test strip (U) [Mass /Vol]Ordered By: López Coburn on 10-17-2024 Protein (U) [Mass/Vol] Protein [Mass/vol ume] in Urine by Test strip High Negative [facility] Protein [Mass/volume] in Ser um or PlasmaOrdered By: López Coburn on 10-17-2024 Protein [Mass/Vol] Protein [Mass/volume ] in Serum or Plasma 6.4-8.9 [facility] RBC Auto (Bld) [#/Vol]Ordere d By: López Coburn on 10-17-2024 RBC (Bld) [#/Vol] Erythrocytes [#/volu me] in Blood by Automated count 3.60-5.00 [facility] Serum or plasma albumin/glob ulin mass ratioOrdered By: López Coburn on 10-17-2024 Albumin/Globulin [Mass ratio] Serum or plasma albumin/globulin mass ratio [facility] Serum or plasma anion gap de terminationOrdered By: López Coburn on 10-17-2024 Anion gap [Moles/Vol] Serum or plasma an ion gap determination 6.0-15.0 [facility] Sodium [Moles/volume] in Ser um or PlasmaOrdered By: López Coburn on 10-17-2024 Sodium [Moles/Vol] Sodium [Moles/volume ] in Serum or Plasma 136-145 [facility] Specific gravity Test strip (U) [Rel density]Ordered By: López Coburn on 10-17-2024 Specific gravity (U) [Rel density] Specific gravity of Urine by Test strip High 1.001-1.03 0 [facility] Urea nitrogen [Mass/volume] in Serum or PlasmaOrdered By: López Coburn on 10-17-2024 Urea nitrogen [Mass/Vol] Urea nitrogen [Mass/volume] in Serum or Plasma 7-25 [facility] Urobilinogen Test strip (U) [Mass/Vol]Ordered By: López Coburn on 10-17-2024 Urobilinogen (U) [Mass/Vol] Urobilinogen [Mass/volume] in Urine by Test strip High Normal [facility] WBC Auto (Bld) [#/Vol]Ordere d By: López Coburn on 10-17-2024 WBC (Bld) [#/Vol] Leukocytes [#/volume ] in Blood by Automated count 3.8-11.6 [facility] pH Test strip (U)Ordered By: López Coburn on 10-17-2024 pH (U) pH of Urine by Test strip 5.0-9.0 [facility] Alanine aminotransferase [En zymatic activity/volume] in Serum or PlasmaOrdered By: Melia Mantilla on 07-25-2024 ALT [Catalytic activity/Vol] 9 U/L Normal 7-52 [facility] Comment on above: Performed By: #### C SUSAN MG ####[facility] [id number] [place] [id number] [facility] ALT [Catalytic activity/Vol] Alanine aminotransferase [Enzymatic activity/volume] in Serum or Plasma [facility] Albumin [Mass/volume] in Ser um or Plasma by Bromocresol green (BCG) dye binding methoOrdered By: Melia Mantilla on 07-25-2024 Albumin BCG dye [Mass/Vol] 4.4 g/dL 3.5-5.7 [facility] Albumin BCG dye [Mass/Vol] Albumin [Mass/volume] in Serum or Plasma by Bromocresol green (BCG) dye binding metho 3.5-5.7 [facility] Alkaline phosphatase [Enzyma tic activity/volume] in Serum or PlasmaOrdered By: Melia Mantilla on 07-25-2024 ALP [Catalytic activity/Vol] 42 U/L Normal 34-104 [facility] [facility] Comment on above: Performed By: #### C SUSAN, MG ####[address] ALP [Catalytic activity/Vol] Alkaline phosphatase [Enzymatic activity/volume] in Serum or Plasma [address] [facility] Aspartate aminotransferase [ Enzymatic activity/volume] in Serum or PlasmaOrdered By: Melia Mantilla on 07-25-2024 AST [Catalytic activity/Vol] 10 U/L Low 13-39 [facility] Comment on above: Performed By: #### C SUSAN, MG ####[address] AST [Catalytic activity/Vol] Aspartate aminotransferase [Enzymatic activity/volume] in Serum or Plasma Low [address] Automated basophil %Ordered By: Melia Mantilla on 07-25-2024 Basophils/100 WBC (Bld) 0.5 % Normal . [facility] Comment on above: Performed By: #### C BC ####[address] Automated basophil countOrde red By: Melia Mantilla on 07-25-2024 Basophils (Bld) [#/Vol] 0.0 10*3/uL Normal 0.0-0.2 [facility] Comment on above: Result Comment: PERF ORMED BY: [facility] [address] [place] [id number] PATHOLOGIST DEPUTY FELONY CLERK BORIS ELIZABETH M.D. Performed By: #### C BC ####[address] Automated blood monocyte cou ntOrdered By: Melia Hernán on 07-25-2024 Monocytes (Bld) [#/Vol] 0.5 10*3/uL Normal 0.0-0.8 [facility] Comment on above: Performed By: #### C BC ####[address] Automated eosinophil %Ordere d By: Melia Hernán on 07-25-2024 Eosinophils/100 WBC (Bld) 0.7 % Normal . [facility] Comment on above: Performed By: #### C BC ####[address] Automated eosinophil countOr dered By: Melia Hernán on 07-25-2024 Eosinophils (Bld) [#/Vol] 0.0 10*3/uL Normal 0.0-0.45 [facility] Comment on above: Performed By: #### C BC ####[address] Automated monocyte %Ordered By: Melia eHrnán on 07-25-2024 Monocytes/100 WBC (Bld) 7.2 % Normal . [facility] Comment on above: Performed By: #### C BC ####[address] Automated neutrophil %Ordere d By: Melia Hernán on 07-25-2024 Neutrophils/100 WBC (Bld) 56.4 % Normal . [facility] Comment on above: Performed By: #### C BC ####[address] Basophils Auto (Bld) [#/Vol] Ordered By: Melia Mantilla on 07-25-2024 Basophils (Bld) [#/Vol] Automated basophil count 0.0-0.2 [facility] Basophils/100 WBC Auto (Bld) Ordered By: Melia Mantilla on 07-25-2024 Basophils/100 WBC (Bld) Automated basophil % . [facility] Bilirubin.total [Mass/volume ] in Serum or PlasmaOrdered By: Melia Mantilla on 07-25-2024 Bilirubin [Mass/Vol] 0.4 mg/dL Normal 0.3-1.0 [facility] Comment on above: Performed By: #### C SUSAN, MG ####[place] [address] [place] [id number] [facility] Bilirubin [Mass/Vol] Bilirubin.total [Mass/volume] in Serum or Plasma 0.3-1.0 [facility] Calcium [Mass/volume] in Ser um or PlasmaOrdered By: Melia Mantilla on 07-25-2024 Calcium [Mass/Vol] 9.7 mg/dL Normal 8.6-10.3 [facility] Comment on above: Performed By: #### C SUSAN, MG ####[address] [address] [place] [id number] [facility] Calcium [Mass/Vol] Calcium [Mass/volume ] in Serum or Plasma 8.6-10.3 [facility] Carbon dioxide, total [Moles /volume] in Serum or PlasmaOrdered By: Melia Mantilla on 07-25-2024 CO2 [Moles/Vol] 31.2 mmol/L High 21.0-31.0 [facility] Comment on above: Performed By: #### C MP, MG ####[place] [id number] [facility] CO2 [Moles/Vol] Carbon dioxide, tota l [Moles/volume] in Serum or Plasma High 21.0-31.0 [facility] Chloride [Moles/volume] in S trent[place] or PlasmaOrdered By: Melia Mantilla on 07-25-2024 Chloride [Moles/Vol] 108 mmol/L High 98-107 [facility] Comment on above: Performed By: #### C MP, MG ####[place] [address] [place] [id number] [facility] Chloride [Moles/Vol] Chloride [Moles/vol ume] in Serum or Plasma High 98-107 [facility] Complete Blood Count Auto Di ffon 07-25-2024 Mean Corpuscular HGB Conc 33.8 g/dL Normal 32.0-35.0 [facility] Comment on above: Performed By: #### C BC ####[address] NRBC% 0.1 /100{WBC} Normal 0-0.5 [facility] Comment on above: Performed By: #### C BC ####[address] Comprehensive Metabolic Pane emigdio 07-25-2024 Albumin [Mass/Vol] 4.4 g/dL Normal 3.5-5.7 [facility] Comment on above: Performed By: #### C MP, MG ####[address] GFR/1.73 sq M.predicted MDRD (S/P/Bld) [Vol rate/Area] mL/min/{1.73_m2} Normal [facility] Comment on above: Performed By: #### C MP, MG ####[address] Creatinine [Mass/volume] in Serum or PlasmaOrdered By: Melia Mantilla on 07-25-2024 Creatinine [Mass/Vol] 0.81 mg/dL Normal 0.60-1.20 [facility] Comment on above: Performed By: #### C MP, MG ####[address] Creatinine [Mass/Vol] Creatinine [Mass/v olume] in Serum or Plasma 0.60-1.20 [facility] Eosinophils Auto (Bld) [#/Vo l]Ordered By: Melia Mantilla on 07-25-2024 Eosinophils (Bld) [#/Vol] Automated eosinophil count 0.0-0.45 [facility] Eosinophils/100 WBC Auto (Bl d)Ordered By: Melia Mantilla on 07-25-2024 Eosinophils/100 WBC (Bld) Automated eosinophil % . [facility] Erythrocyte distribution wid th Auto (RBC) [Ratio]Ordered By: Melia Mantilla on 07-25-2024 Erythrocyte distribution width (RBC) [Ratio] Erythrocyte distribution width [Ratio] by Automated count 11.9-15.3 [facility] Erythrocyte distribution wid th [Ratio] by Automated countOrdered By: Melia Mantilla on 07-25-2024 Erythrocyte distribution width (RBC) [Ratio] 13.8 % Normal 11.9-15.3 [facility] Comment on above: Performed By: #### C BC ####[place] [address] [place] [id number] [facility] Erythrocytes [#/volume] in B lood by Automated countOrdered By: Melia Mantilla on 07-25-2024 RBC (Bld) [#/Vol] 4.85 10*6/uL Normal 3.60-5.00 [facility] Comment on above: Performed By: #### C BC ####[place] [address] [place] [id number] [facility] Globulin Calc (S) [Mass/Vol] Ordered By: Melia Mantilla on 07-25-2024 Globulin (S) [Mass/Vol] Serum globulin measurement by calculation (mass/volume) [facility] Glucose [Mass/volume] in Ser um or PlasmaOrdered By: Melia Mantilla on 07-25-2024 Glucose [Mass/Vol] 91 mg/dL Normal 70-100 [facility] Comment on above: ADA recommended refe rence rangeRandom Glucose Reference Range is dependent on time and content of last meal. Glucose of more than 200 mg/dL in a nonstressed, ambulatory subject supports the diagnosis of Diabetes Mellitus. Result Comment: [place] Glucose Reference Range is dependent on time and content of last meal. Glucose of more than 200 mg/dL in a nonstressed, ambulatory subject supports the diagnosis of Diabetes Mellitus. ADA recommended reference range Performed By: #### C MP, MG ####[place] [id number] [facility] Glucose [Mass/Vol] Glucose [Mass/volume ] in Serum or Plasma 70-100 [facility] Comment on above: ADA recommended [...] Blood by Automated count 34.0-46.4 [facility] Hematocrit [Volume Fraction] of Blood by Automated countOrdered By: Melia Mantilla on 07-25-2024 Hematocrit (Bld) [Volume fraction] 41.7 % Normal 34.0-46.4 [facility] Comment on above: Performed By: #### C BC ####[place] [address] [place] [phone] [facility] Hemoglobin [Mass/volume] in BloodOrdered By: Melia Mantilla on 07-25-2024 Hemoglobin (Bld) [Mass/Vol] 14.1 g/dL Normal 11.8-15.4 [facility] Comment on above: Performed By: #### C BC ####[place] [id number] [facility] Hemoglobin (Bld) [Mass/Vol] Hemoglobin [Mass/volume] in Blood 11.8-15.4 [facility] Leukocytes [#/volume] correc nicole for nucleated erythrocytes in Blood by Automated counOrdered By: Melia Mantilla on 07-25-2024 WBC corrected for nucl RBC Auto (Bld) [#/Vol] 6.7 10*3/uL 3.8-11.6 [facility] WBC corrected for nucl RBC Auto (Bld) [#/Vol] Leukocytes [#/volume] corrected for nucleated erythrocytes in Blood by Automated coun 3.8-11.6 [facility] Leukocytes [#/volume] in Blo od by Automated countOrdered By: Melia Mantilla on 07-25-2024 WBC (Bld) [#/Vol] 6.7 10*3/uL Normal 3.8-11.6 [facility] Comment on above: Performed By: #### C BC ####[place] [address] [place] [id number] [facility] Lymphocytes Auto (Bld) [#/Vo l]Ordered By: Melia Mantilla on 07-25-2024 Lymphocytes (Bld) [#/Vol] Lymphocytes [#/volume] in Blood by Automated count 1.00-4.8 [facility] Lymphocytes [#/volume] in Bl ood by Automated countOrdered By: Melia Mantilla on 07-25-2024 Lymphocytes (Bld) [#/Vol] 2.3 10*3/uL Normal 1.00-4.8 [facility] Comment on above: Performed By: #### C BC ####[address] Lymphocytes/100 WBC Auto (Bl d)Ordered By: Melia Mantilla on 07-25-2024 Lymphocytes/100 WBC (Bld) Lymphocytes/100 leukocytes in Blood by Automated count . [facility] Lymphocytes/100 leukocytes i n Blood by Automated countOrdered By: Melia Mantilla on 07-25-2024 Lymphocytes/100 WBC (Bld) 35.2 % Normal . [facility] Comment on above: Performed By: #### C BC ####[address] MCH Auto (RBC) [Entitic mass ]Ordered By: Melia Mantilla on 07-25-2024 MCH (RBC) [Entitic mass] MCH [Entitic ma ss] by Automated count 24.7-34.3 [facility] MCH [Entitic mass] by Automa nicole countOrdered By: Melia Mantilla on 07-25-2024 MCH (RBC) [Entitic mass] 29.1 pg Normal 24.7-34.3 [facility] Comment on above: Performed By: #### C BC ####[address] MCHC Auto (RBC) [Mass/Vol]Or dered By: Melia Mantilla on 07-25-2024 MCHC (RBC) [Mass/Vol] 33.8 g/dL 32.0-35.0 [facility] MCHC (RBC) [Mass/Vol] MCHC [Mass/volume] by Automated count 32.0-35.0 [facility] MCV Auto (RBC) [Entitic vol] Ordered By: Melia Mantilla on 07-25-2024 MCV (RBC) [Entitic vol] MCV [Entitic vol ume] by Automated count 80-100 [facility] MCV [Entitic volume] by Auto mated countOrdered By: Melia Mantilla on 07-25-2024 MCV (RBC) [Entitic vol] 86.1 fL Normal 80-100 [facility] [place] Comment on above: Performed By: #### C BC ####[address] [place] [address] [facility] Magnesium [Mass/volume] in S [place] or PlasmaOrdered By: Melia Mantilla on 07-25-2024 Magnesium [Mass/Vol] 1.9 mg/dL Normal 1.9-2.7 [facility] Comment on above: Result Comment: PERF ORMED BY: [facility] [address] [place] [phone] PATHOLOGIST DEPUTY FELONY CLERK BORIS ELIZABETH M.D. Performed By: #### C MP, MG ####[place] [id number] [facility] Magnesium [Mass/Vol] Magnesium [Mass/vol ume] in Serum or Plasma 1.9-2.7 [facility] Monocytes Auto (Bld) [#/Vol] Ordered By: Melia Mantilla on 07-25-2024 Monocytes (Bld) [#/Vol] Automated blood monocyte count 0.0-0.8 [facility] Monocytes/100 WBC Auto (Bld) Ordered By: Melia Mantilla on 07-25-2024 Monocytes/100 WBC (Bld) Automated monocyte % . [facility] Neutrophils Auto (Bld) [#/Vo l]Ordered By: Melia Mantilla on 07-25-2024 Neutrophils (Bld) [#/Vol] Neutrophils [#/volume] in Blood by Automated count 1.8-7.7 [facility] Neutrophils [#/volume] in Bl ood by Automated countOrdered By: Melia Mantilla on 07-25-2024 Neutrophils (Bld) [#/Vol] 3.8 10*3/uL Normal 1.8-7.7 [facility] Comment on above: Performed By: #### C BC ####[place] [address] [place] [id number] [facility] Neutrophils/100 WBC Auto (Bl d)Ordered By: Melia Mantilla on 07-25-2024 Neutrophils/100 WBC (Bld) Automated neutrophil % . [facility] No Panel InformationOrdered By: Melia Mantilla on 07-25-2024 Estimated GFR (CKD-EPI) > 60.0 mL/Min [facility] Creatinine Clearance (Chem N/A [facility] Nucleated erythrocytes [Pres ence] in Blood by Automated countOrdered By: Melia Mantilla on 07-25-2024 Nucleated RBC Auto Ql (Bld) 0.1 /100{WBC} 0-0.5 [facility] Nucleated RBC Auto Ql (Bld) Nucleated erythrocytes [Presence] in Blood by Automated count 0-0.5 [facility] Platelet mean volume Auto (B ld) [Entitic vol]Ordered By: Melia Mantilla on 07-25-2024 Platelet mean volume (Bld) [Entitic vol] Platelet mean volume [Entitic volume] in Blood by Automated count 6.3-10.7 [facility] Platelet mean volume [Entiti c volume] in Blood by Automated countOrdered By: Melia Mantilla on 07-25-2024 Platelet mean volume (Bld) [Entitic vol] 7.8 fL Normal 6.3-10.7 [facility] Comment on above: Performed By: #### C BC ####[facility] [place] [id number] [facility] Platelets Auto (Bld) [#/Vol] Ordered By: Melia Mantilla on 07-25-2024 Platelets (Bld) [#/Vol] Platelets [#/vol ume] in Blood by Automated count 150-450 [facility] Platelets [#/volume] in Bloo d by Automated countOrdered By: Melia Mantilla on 07-25-2024 Platelets (Bld) [#/Vol] 280 10*3/uL Normal 150-450 [facility] Comment on above: Performed By: #### C BC ####[place] [id number] [facility] Potassium [Moles/volume] in Serum or PlasmaOrdered By: Melia Mantilla on 07-25-2024 Potassium [Moles/Vol] 4.1 mmol/L Normal 3.5-5.1 [facility] Comment on above: Performed By: #### C SUSAN, MG ####[address] Potassium [Moles/Vol] Potassium [Moles/v olume] in Serum or Plasma 3.5-5.1 [facility] Protein [Mass/volume] in Ser um or PlasmaOrdered By: Melia Mantilla on 07-25-2024 Protein [Mass/Vol] 6.5 g/dL Normal 6.4-8.9 [facility] Comment on above: Performed By: #### C SUSAN, MG ####[address] Protein [Mass/Vol] Protein [Mass/volume ] in Serum or Plasma 6.4-8.9 [facility] RBC Auto (Bld) [#/Vol]Ordere d By: Melia Mantilla on 07-25-2024 RBC (Bld) [#/Vol] Erythrocytes [#/volu me] in Blood by Automated count 3.60-5.00 [facility] Serum globulin measurement b y calculation (mass/volume)Ordered By: Melia Mantilla on 07-25-2024 Globulin (S) [Mass/Vol] 2.1 g/dL Normal [facility] [place] Comment on above: Performed By: #### C SUSAN, MG ####[address] Serum or plasma albumin/glob ulin mass ratioOrdered By: Melia Mantilla on 07-25-2024 Albumin/Globulin [Mass ratio] 2.1 {ratio} Normal [facility] Comment on above: Performed By: #### C SUSAN, MG ####[address] Albumin/Globulin [Mass ratio] Serum or plasma albumin/globulin mass ratio [facility] Serum or plasma anion gap de terminationOrdered By: Melia Mantilla on 07-25-2024 Anion gap [Moles/Vol] 7.9 mmol/L Normal 6.0-15.0 [facility] Comment on above: Performed By: #### C MP, MG ####[place] [address] [place] [phone] [facility] Anion gap [Moles/Vol] Serum or plasma an ion gap determination 6.0-15.0 [facility] Sodium [Moles/volume] in Ser um or PlasmaOrdered By: Melia Mantilla on 07-25-2024 Sodium [Moles/Vol] 143 mmol/L Normal 136-145 [facility] Comment on above: Performed By: #### C MP, MG ####[place] [address] [place] [id number] [facility] Sodium [Moles/Vol] Sodium [Moles/volume ] in Serum or Plasma 136-145 [facility] Urea nitrogen [Mass/volume] in Serum or PlasmaOrdered By: Melia Mantilla on 07-25-2024 Urea nitrogen [Mass/Vol] 11 mg/dL Normal 04-12 [facility] Comment on above: Performed By: #### C MP, MG ####[place] [id number] [facility] Urea nitrogen [Mass/Vol] Urea nitrogen [Mass/volume] in Serum or Plasma - [facility] WBC Auto (Bld) [#/Vol]Ordere d By: Melia Mantilla on 07-25-2024 WBC (Bld) [#/Vol] Leukocytes [#/volume ] in Blood by Automated count 3.8-11.6 [facility] XR lumbar spine 2-3V*on XR lumbar spine 2-3V* [facility] [place] [address] XRay Report Signed Patient: Berenice Lopez MR#: [id number] 2 : 2005 Acct:[id number] Age/Sex: 18 / F ADM Date: 07/25/24 Loc: XD Room: Type: [facility] Attending Dr: Melia Mantilla LIBRARY CIRCULATION DEPARTMENT CHIEF-C Copies to: Melia Mantilla CAREER CENTER ADVISOR Ordering Provider: Melia Mantilla CNP Date of [...] Shepard Jr., D.O.07/25/2024 3:34 PM Dictation Location: RADIO-PC-23 Transcribed By: PWS 07/25/241533 Dictated By: Sea Shepard Jr DO 07/25/24 153 Signed By: 07/25/24 153 Normal [facility] XR si jointson 07-25-2024 XR si joints [facility] [place] [address] XRay Report Signed Patient: Berenice Lopez MR#: [id number] 2 : 2005 Acct:[id number] Age/Sex: 18 / F ADM Date: 07/25/24 Loc: XD Room: Type: [facility] Attending Dr: Melia Mantilla [employer]RARY CIRCULATION DEPARTMENT CHIEF-C Copies to: Melia Mantilla CNP Ordering Provider: [...] Shepard Jr., D.O.07/25/2024 3:35 PM Dictation Location: RADIO-PC-23 Transcribed By: [facility] 07/25/241534 Dictated By: Sea Shepard Jr, DO 07/25/241533 Signed By: 07/25/24 153 Normal [facility] ALL LDHon 11-03-2023 LDH [Catalytic activity/Vol] 129 U/L 81 - 234 U/L [facility] XR LSPINE MIN 4 VIEWSon 12-19 XR [...] JOY CARDOZA Date: 2023-01-10 11:59 Normal [facility] CBC AUTO DIFFon 11-12-2022 BASO # 0.0 103/ul Normal 0.0-0.1 [facility] Comment on above: Performed By: #### C BC #### [facility] [address] [address] [address] Hilda Harden Basophils/100 WBC (Bld) 0.3 % Normal 0.2-2.0 [facility] Comment on above: Performed By: #### C BC #### [facility] [address] [address] [address] Hilda Harden EO # 0.1 103/ul Normal 0.0-0.7 [facility] Comment on above: Performed By: #### C BC #### [facility] [address] [address] [address] Hilda Harden Eosinophils/100 WBC (Bld) 1.3 % Normal 0.9-7.0 [facility] Comment on above: Performed By: #### C BC #### [facility] [address] [address] [address] Hilda Harden Erythrocyte distribution width (RBC) [Ratio] 13.3 % Normal 11.0-15.0 [facility] Comment on above: Performed By: #### C BC #### [facility] [address] [place] [address] Dr. Hilda Harden Hematocrit (Bld) [Volume fraction] 40.9 % Normal 36.0-48.0 [facility] Comment on above: Performed By: #### C BC #### [facility] [address] [place] [address] Dr. Hilda Harden Hemoglobin (Bld) [Mass/Vol] 13.9 g/dL Normal 12.0-16.0 [facility] Comment on above: Performed By: #### C BC #### [facility] [address] [place] [address] Dr. Hilda Harden IG # 0.02 10e3/ul Normal 0.00-0.03 [facility] Comment on above: Performed By: #### C BC #### [facility] [address] [place] [address] Dr. Hilda Harden IG % 0.3 % Normal 0.0-0.5 [facility] Comment on above: Performed By: #### C BC #### [facility] [address] [place] [address] Dr. Hilda Harden LYMPH # 2.5 103/ul Normal 1.2-3.8 [facility] Comment on above: Performed By: #### C BC #### [facility] [address] [place] [address] Dr. Hilda Harden Lymphocytes/100 WBC (Bld) 41.4 % Normal 20.5-60.0 [facility] Comment on above: Performed By: #### C BC #### [facility] [address] [place] [address] Dr. Hilda Harden MANUAL DIFF REQ NO Normal [facility] Comment on above: Performed By: #### C BC #### [facility] [address] [place] [address] Dr. Hilda Harden MCH (RBC) [Entitic mass] 28.8 pg Normal 26.7-34.0 [facility] Comment on above: Performed By: #### C BC #### [facility] [address] [place] [address] Dr. Hilda Harden MCHC (RBC) [Mass/Vol] 34.0 g/dL Normal 29.9-35.2 [facility] Comment on above: Performed By: #### C BC #### [facility] [address] [address] [address] Hilda Harden MCV (RBC) [Entitic vol] 84.9 fL Normal 81.0-99.0 [facility] Comment on above: Performed By: #### C BC #### [facility] [address] [address] [address] Hilda Harden MONO # 0.4 103/ul Normal 0.3-0.8 [facility] Comment on above: Performed By: #### C BC #### [facility] [address] [place] [address] Dr. Hilda Harden Monocytes/100 WBC (Bld) 6.9 % Normal 1.7-12.0 [facility] Comment on above: Performed By: #### C BC #### [facility] [address] [place] [address] Dr. Hilda Harden NEUT # 3.0 103/ul Normal 1.4-6.5 [facility] Comment on above: Performed By: #### C BC #### [facility] [address] [place] [address] Dr. Hilda Harden Neutrophils/100 WBC (Bld) 49.8 % Normal 43.0-75.0 [facility] Comment on above: Performed By: #### C BC #### [facility] [address] [place] [address] Dr. Hilda Harden Platelet mean volume (Bld) [Entitic vol] 9.6 fL Normal 9.5-13.5 [facility] Comment on above: Performed By: #### C BC #### [facility] [address] [place] [address] Dr. Hilda Harden PLT 279 103/ul Normal 150-450 [facility] Comment on above: Performed By: #### C BC #### [facility] [address] [place] [address] Dr. Hilda Harden RBC 4.82 106/ul Normal 4.20-5.40 [facility] Comment on above: Performed By: #### C BC #### [facility] [address] [place] [address] Dr. Hilda Harden WBC 6.1 103/ul Normal 4.0-11.0 [facility] Comment on above: Performed By: #### C BC #### [facility] [address] [place] [address] Dr. Hilda Harden PREG QUANT HCGon 11-12-2022 HCG QUANT <1 Normal [facility] Comment on above: Performed By: #### C T/NGNA #### [facility] [place] [facility] [address] [place] [address] Dr. Hilda Harden HCG RANGE SEE BELOW Normal [facility] Comment on above: Result Comment: 5-50 0.2-1 WEEK 50-500 1-2 WEEKS 100-5,000 2-3 WEEKS 500-10,000 3-4 WEEKS 1,000-50,000 4-5 WEEKS 10,000-100,000 5-6 WEEKS 15,000-200,000 6-8 WEEKS 10,000-100,000 2-3 MONTHS Performed By: #### C T/NGNA #### [facility] [place] [facility] [address] [place] [address] Dr. Hilda Harden AFP (TUMOR MARKER)on 023 AFP, Serum, Tumor Marker 4.9 ng/mL Critically high 0.0-4. 7 [facility] Comment on above: Result Comment: [employer] Electrochemiluminescence Immunoassay (ECLIA) . Values obtained with different assay methods or kits cannot be used interchangeably. Results cannot be interpreted as absolute evidence of the presence or absence of malignant disease. . This test is not interpretable in females. Performed By: #### A FP. #### [facility] [place] [facility] [address] [place] [address] Dr. Hilda Harden CA 125on 10-20-2022 Cancer Antigen (CA) 125 34.1 U/mL Normal 0.0-38.1 [facility] Comment on above: Result Comment: [employer] Electrochemiluminescence Immunoassay (ECLIA) . Values obtained with different assay methods or kits cannot be used interchangeably. Results cannot be interpreted as absolute evidence of the presence or absence of malignant disease. Performed By: #### C A 125 #### [facility] [place] [facility] [address] [place] [address] Dr. Hilda Harden CEAon 10-20-2022 CEA 1.3 ng/mL Normal 0.0-4.7 [facility] Comment on above: Result Comment: Nons mokers <3.9 Smokers <5.6 . [employer] Electrochemiluminescence Immunoassay (ECLIA) . Values obtained with different assay methods or kits cannot be used interchangeably. Results cannot be interpreted as absolute evidence of the presence or absence of malignant disease. Performed By: #### C T/NGNA #### [facility] [place] [facility] [address] [place] [address] Dr. Hilda Harden HCG QUANT TUMOR MARKERon HCG QNT TUMOR MARKER <1 Normal [facility] Comment on above: Result Comment: Fema le [...] developed and its performance characteristics determined by [employer]. It has not been cleared or approved by the Food and Drug Administration for use as a tumor marker. . This test is not interpretable as a tumor marker in females. Performed By: #### H CGTMOR #### [facility] [place] [facility] [address] [place] [address] Dr. Hilda Harden LDHon 10-19-2022 LDH 140 U/L Normal 81-234 [facility] Comment on above: Performed By: #### L DH #### [facility] [place] [facility] [address] [place] [address] Dr. Hilda Harden US PELVIS AND TRANSVAGon [...] JOY CARDOZA Date: 2022-10-15 13:53 Normal [facility] [place] DHEA SERUMon 10-10-2022 Dehydroepiandrosterone (DHEA) 640 ng/dL Critically high 40-491 [facility] Comment on above: Result Comment: Age 1 [...] 701 Performed By: #### D HEA. #### [facility] [place] [facility] [address] [place], [place] [address] Dr. Hilda Harden DHEA-SULFATEon 10-07-2022 DHEA-Sulfate 201.0 ug/dL Normal 110.0-433. 2 [facility] [place] Comment on above: Performed By: #### C T/NGNA #### [facility] [place] [facility] [address] [place], [place] [address] Dr. Hilda Harden FSHon 10-07-2022 FSH 4.1 mIU/mL Normal [facility] Comment on above: Result Comment: Adul t Female: Follicular phase 3.5 - 12.5 Ovulation phase 4.7 - 21.5 Luteal phase 1.7 - 7.7 Postmenopausal 25.8 - 134.8 Performed By: #### C T/NGNA #### [facility] [place] [facility] [address] [place] [address] Dr. Hilda Harden LUTEINIZING HORMONE (LH)on 0 10-07-2022 LH 7.9 mIU/mL Normal [facility] Comment on above: Result Comment: Adul t Female: Follicular phase 2.4 - 12.6 Ovulation phase 14.0 - 95.6 Luteal phase 1.0 - 11.4 Postmenopausal 7.7 - 58.5 Performed By: #### C BC #### [facility] [place] [facility] [address] [place] [address] Dr. Hilda Harden CBC AUTO DIFFon 10-06-2022 BASO # 0.0 103/ul Normal 0.0-0.1 [facility] Comment on above: Performed By: #### C BC #### [facility] [place] [facility] [address] [place] [address] Dr. Hilda Harden Basophils/100 WBC (Bld) 0.3 % Normal 0.2-2.0 [facility] Comment on above: Performed By: #### C BC #### [facility] [place] [facility] [address] [place] [address] Dr. Hilda Harden EO # 0.1 103/ul Normal 0.0-0.7 [facility] Comment on above: Performed By: #### C BC #### [facility] [place] [facility] [address] [place] [address] Dr. Hilda Harden Eosinophils/100 WBC (Bld) 1.8 % Normal 0.9-7.0 [facility] Comment on above: Performed By: #### C BC #### [facility] [place] [facility] [address] [place] [address] Dr. Hilda Harden Erythrocyte distribution width (RBC) [Ratio] 13.3 % Normal 11.0-15.0 [facility] Comment on above: Performed By: #### C BC #### [facility] [place] [facility] [address] [place] [address] Dr. Hilda Harden Hematocrit (Bld) [Volume fraction] 39.9 % Normal 36.0-48.0 [facility] Comment on above: Performed By: #### C BC #### [facility] [place] [facility] [address] [place] [address] Dr. Hilda Harden Hemoglobin (Bld) [Mass/Vol] 13.1 g/dL Normal 12.0-16.0 [facility] [place] Comment on above: Performed By: #### C BC #### [facility] [place] [facility] [address] [place] [address] Dr. Hilda Harden IG # 0.02 10e3/ul Normal 0.00-0.03 [facility] Comment on above: Performed By: #### C BC #### [facility] [place] [facility] [address] [place] [address] Dr. Hilda Harden IG % 0.3 % Normal 0.0-0.5 [facility] Comment on above: Performed By: #### C BC #### [facility] [place] [facility] [address] [place] [address] Dr. Hilda Harden LYMPH # 2.1 103/ul Normal 1.2-3.8 [facility] [place] Comment on above: Performed By: #### C BC #### [facility] [place] [facility] [address] [place] [address] Dr. Hilda Harden Lymphocytes/100 WBC (Bld) 31.8 % Normal 20.5-60.0 [facility] Comment on above: Performed By: #### C BC #### [facility] [place] [facility] [address] [place] [address] Dr. Hilda Harden MANUAL DIFF REQ NO Normal [facility] [place] Comment on above: Performed By: #### C BC #### [facility] [place] [facility] [address] [place] [address] Dr. Hilda Harden MCH (RBC) [Entitic mass] 27.8 pg Normal 26.7-34.0 [facility] Comment on above: Performed By: #### C BC #### [facility] [place] [facility] [address] [place] [address] Dr. Hilda Harden MCHC (RBC) [Mass/Vol] 32.8 g/dL Normal 29.9-35.2 [facility] Comment on above: Performed By: #### C BC #### [facility] [place] [facility] [address] [place] [address] Dr. Hilda Harden MCV (RBC) [Entitic vol] 84.5 fL Normal 81.0-99.0 [facility] Comment on above: Performed By: #### C BC #### [facility] [place] [facility] [address] [place] [address] Dr. Hilda Harden MONO # 0.5 103/ul Normal 0.3-0.8 [facility] Comment on above: Performed By: #### C BC #### [facility] [place] [facility] [address] [place] [address] Dr. Hilda Harden Monocytes/100 WBC (Bld) 7.8 % Normal 1.7-12.0 [facility] Comment on above: Performed By: #### C BC #### [facility] [place] [facility] [address] [place] [address] Dr. Hilda Harden NEUT # 3.8 103/ul Normal 1.4-6.5 [facility] Comment on above: Performed By: #### C BC #### [facility] [place] [facility] [address] [place] [address] Dr. Hilda Harden Neutrophils/100 WBC (Bld) 58.0 % Normal 43.0-75.0 [facility] Comment on above: Performed By: #### C BC #### [facility] [place] [facility] [address] [place] [address] Dr. Hilda Harden Platelet mean volume (Bld) [Entitic vol] 9.7 fL Normal 9.5-13.5 [facility] Comment on above: Performed By: #### C BC #### [facility] [place] [facility] [address] [place] [address] Dr. Hilda Harden PLT 266 103/ul Normal 150-450 [facility] Comment on above: Performed By: #### C BC #### [facility] [place] [facility] [address] [place] [address] Dr. Hilda Harden RBC 4.72 106/ul Normal 4.20-5.40 [facility] Comment on above: Performed By: #### C BC #### [facility] [place] [facility] [address] [place] [address] Dr. Hilda Harden WBC 6.6 103/ul Normal 4.0-11.0 [facility] Comment on above: Performed By: #### C BC #### [facility] [place] [facility] [address] [place] [address] Dr. Hilda Harden FREE T4on 10-06-2022 Free T4 [Mass/Vol] 1.09 ng/dL Normal 0.78-1.34 [facility] Comment on above: Performed By: #### C T/NGNA #### [facility] [place] [facility] [address] [place] [address] Dr. Hilda Harden GLYCOHEMOGLOBIN A1Con 2022 ADA RECOMMENDATION SEE BELOW Normal [facility] Comment on above: Result Comment: ADA RECOMMENDED LIMIT 4.0 - 6.0 ADA THERAPEUTIC TARGET < 7.0 ACTION SUGGESTED > 7.0 Performed By: #### A 1C #### [facility] [place] [facility] [address] [place] [address] Dr. Hidla Harden Glucose [Mass/Vol] 100 mg/dL Normal [facility] Comment on above: Performed By: #### A 1C #### [facility] [place] [facility] [address] [place] [address] Dr. Hilda Harden HbA1c (Bld) [Mass fraction] 5.1 % Normal 4.5-6.2 [facility] Comment on above: Performed By: #### A 1C #### [facility] [place] [facility] [address] [place] [address] Dr. Hilda Harden TSHon 10-06-2022 TSH 1.199 uIU/mL Normal 0.516-4.13 0 [facility] Comment on above: Performed By: #### T SH #### [facility] [place] [facility] [address] [place] [address] Dr. Hilda Harden CHLAMYDIA/GONOCOCCUS RON (SW AB/URINE/PAPon 05-07-2022 Chlamydia trachomatis, RON Negative Normal Negative [facility] Comment on above: Performed By: #### C T/NGNA #### [facility] [place] [facility] [address] [place] [address] [address] Hilda Harden Neisseria gonorrhoeae, RON Negative Normal Negative [facility] Comment on above: Performed By: #### C T/NGNA #### [facility] [place] [facility] [address] [place] [address] [address] Hilda Harden VAGINITIS/VAGINOSIS DNA PROB Harinder 05-06-2022 Shannen species Negative Normal Negative [facility] Comment on above: Performed By: #### C BC #### [facility] [place] [facility] [address] [place] [address] [address] Hilda Harden Gardnerella vaginalis Positive Abnormal Negative [facility] Comment on above: Performed By: #### C BC #### [facility] [place] [facility] [address] [place] [address] [address] Hilda Harden Trichomonas vaginalis Negative Normal Negative [facility] Comment on above: Performed By: #### C BC #### [facility] [place] [facility] [address] [place] [address] [address] Hilda Harden Basophils Auto (Bld) [#/Vol] Ordered By: Severo Lea on 02-07-2022 Basophils (Bld) [#/Vol] 0.0 10*3/uL 0.0-0.1 [facility] Basophils/100 WBC Auto (Bld) Ordered By: Severo Lea on 02-07-2022 Basophils/100 WBC (Bld) 0.6 % [facility] [place] Bilirubin Test strip Ql (U)O rdered By: Severo Lea on 02-07-2022 Bilirubin Ql (U) Negative Negative [facility] Blood hemoglobin measurement (mass/volume)Ordered By: Severo Lea on 02-07-2022 Hemoglobin (Bld) [Mass/Vol] 13.8 g/dL 12.0-16.0 [facility] Blood leukocytes automated c ount (number/volume)Ordered By: Severo Lea on 02-07-2022 WBC (Bld) [#/Vol] 8.5 10*3/uL 4.5-13.5 [facility] Body fluid albumin measureme nt (mass/volume)Ordered By: Severo Lea on 02-07-2022 Albumin (Body fld) [Mass/Vol] 4.2 g/dL 3.2-5.5 [facility] Color Auto (U)Ordered By: Maren Lea on 02-07-2022 Color (U) Yellow Yellow [facility] Creatinine and Glomerular fi ltration rate.predicted panel (S/P/Bld)Ordered By: Severo Lea on 02-07-2022 Creatinine [Mass/Vol] 0.82 mg/dL 0.44-1.03 [facility] Eosinophils Auto (Bld) [#/Vo l]Ordered By: Severo Lea on 02-07-2022 Eosinophils (Bld) [#/Vol] 0.1 10*3/uL 0.0-0.7 [facility] Eosinophils/100 WBC Auto (Bl d)Ordered By: Severo Lea on 02-07-2022 Eosinophils/100 WBC (Bld) 0.7 % [facility] Erythrocyte distribution wid th Auto (RBC) [Ratio]Ordered By: Severo Lea on 02-07-2022 Erythrocyte distribution width (RBC) [Ratio] 14.2 % 11.9-15.3 [facility] Estimated glomerular filtrat ion rate (GFR) non- AmericanOrdered By: Severo Lea on 02-07-2022 GFR/1.73 sq M.predicted among non-blacks MDRD (S/P/Bld) [Vol rate/Area] > 60 mL/Min [facility] Globulin Calc (S) [Mass/Vol] Ordered By: Severo Lea on 02-07-2022 Globulin (S) [Mass/Vol] 2.4 g/dL [facility] [place] HCG ( test) IA.rapi d Ql (U)Ordered By: Severo Lea on 02-07-2022 HCG ( test) Ql (U) Negative [facility] Hematocrit Auto (Bld) [Volum e fraction]Ordered By: Severo Lea on 02-07-2022 Hematocrit (Bld) [Volume fraction] 41.5 % 36.0-46.0 [facility] Ketones Auto test strip (U) [Mass/Vol]Ordered By: Severo Lea on 02-07-2022 Ketones (U) [Mass/Vol] Trace Negative [facility] and C hemistry - challengeOrdered By: Severo Lea on 02-07-2022 Lipase [Catalytic activity/Vol] 53.0 U/L [facility] Laboratory - Hematology and Cell countsOrdered By: Severo Lea on 02-07-2022 Nucleated RBC/100 WBC (Bld) [Ratio] 0.0 % 0-0.5 [facility] Lymphocytes Auto (Bld) [#/Vo l]Ordered By: Severo Lea on 02-07-2022 Lymphocytes (Bld) [#/Vol] 2.0 10*3/uL 1.20-4.8 [facility] Lymphocytes/100 WBC Auto (Bl d)Ordered By: Severo Lea on 02-07-2022 Lymphocytes/100 WBC (Bld) 23.8 % [facility] MCH Auto (RBC) [Entitic mass ]Ordered By: Severo Lea on 02-07-2022 MCH (RBC) [Entitic mass] 28.6 pg 25.0-35.0 [facility] MCHC Auto (RBC) [Mass/Vol]Or dered By: Severo Lea on 02-07-2022 MCHC (RBC) [Mass/Vol] 33.3 g/dL 31.0-37.0 [facility] MCV Auto (RBC) [Entitic vol] Ordered By: Severo Lea on 02-07-2022 MCV (RBC) [Entitic vol] 85.8 fL 78-102 [facility] [place] Monocytes Auto (Bld) [#/Vol] Ordered By: Severo Lea on 02-07-2022 Monocytes (Bld) [#/Vol] 0.6 10*3/uL 0.1-1.00 [facility] Monocytes/100 WBC Auto (Bld) Ordered By: Severo Lea on 02-07-2022 Monocytes/100 WBC (Bld) 7.6 % [facility] [place] Neutrophils Auto (Bld) [#/Vo l]Ordered By: Severo Lea on 02-07-2022 Neutrophils (Bld) [#/Vol] 5.7 10*3/uL 1.2-7.7 [facility] Neutrophils/100 WBC Auto (Bl d)Ordered By: Severo Lea on 02-07-2022 Neutrophils/100 WBC (Bld) 67.3 % [facility] Nitrite Test strip Ql (U)Ord ered By: Severo Lea on 02-07-2022 Nitrite Ql (U) Negative Negative [facility] No Panel InformationOrdered By: Severo Lea on 02-07-2022 Estimated GFR () > 60 mL/Min [facility] Comment on above: GFR estimated refere nce range: According to KDOQI guidelines, <60 ml/min/1.73m2 is sufficient to diagnose a patient with chronic kidney disease. Pharmacy Creatinine Clearance (Chem 100.48 [facility] Platelet mean volume Auto (B ld) [Entitic vol]Ordered By: Severo Lea on 02-07-2022 Platelet mean volume (Bld) [Entitic vol] 8.6 fL 6.3-10.7 [facility] Platelets Auto (Bld) [#/Vol] Ordered By: Severo Lea on 02-07-2022 Platelets (Bld) [#/Vol] 304 10*3/uL 150-450 [facility] Protein Auto test strip (U) [Mass/Vol]Ordered By: Severo Lea on 02-07-2022 Protein (U) [Mass/Vol] Negative Negative [facility] Protein [Mass/volume] in Ser um or PlasmaOrdered By: Severo Lea on 02-07-2022 Protein [Mass/Vol] 6.6 g/dL 6.1-7.9 [facility] RBC Auto (Bld) [#/Vol]Ordere d By: Severo Lea on 02-07-2022 RBC (Bld) [#/Vol] 4.84 10*6/uL 4.10-5.10 [facility] Serum or plasma alanine ugerra otransferase measurement without P-5'-P (enzymatic activiOrdered By: Severo Lea on 02-07-2022 ALT No additional P-5'-P [Catalytic activity/Vol] 14 U/L 10-60 [facility] Serum or plasma albumin/glob ulin mass ratioOrdered By: Severo Lea on 02-07-2022 Albumin/Globulin [Mass ratio] 1.8 {ratio} [facility] Serum or plasma alkaline wil sphatase measurement (enzymatic activity/volume)Ordered By: Severo Lea on 02-07-2022 ALP [Catalytic activity/Vol] 46 U/L 32-92 [facility] Serum or plasma amylase jamar urement (enzymatic activity/volume)Ordered By: Severo Lea on 02-07-2022 Amylase [Catalytic activity/Vol] 70 U/L 28-100 [facility] Serum or plasma aspartate am inotransferase measurement (enzymatic activity/volume)Ordered By: Severo Lea on 02-07-2022 AST [Catalytic activity/Vol] 15 U/L 10-42 [facility] Serum or plasma calcium jamar urement (mass/volume)Ordered By: Severo Lea on 02-07-2022 Calcium [Mass/Vol] 9.3 mg/dL 8.2-10.2 [facility] Serum or plasma chloride [place] surement (moles/volume)Ordered By: Severo Lea on 02-07-2022 Chloride [Moles/Vol] 107 mmol/L 95-114 [facility] Serum or plasma glucose jamar urement (mass/volume)Ordered By: Severo Lea on 02-07-2022 Glucose [Mass/Vol] 94 mg/dL 70-100 [facility] Comment on above: ADA recommended refe rence range Random Glucose Reference Range is dependent on time and content of last meal. Glucose of more than 200 mg/dL in a nonstressed, ambulatory subject supports the diagnosis of Diabetes Mellitus. Serum or plasma potassium me asurement (moles/volume)Ordered By: Severo Lea on 02-07-2022 Potassium [Moles/Vol] 4.2 mmol/L 3.5-5.1 [facility] Serum or plasma sodium measu rement (moles/volume)Ordered By: Severo Lea on 02-07-2022 Sodium [Moles/Vol] 140 mmol/L 136-146 [facility] Serum or plasma total biliru bin measurement (mass/volume)Ordered By: Severo Lea on 02-07-2022 Bilirubin [Mass/Vol] 0.5 mg/dL 0.3-1.2 [facility] Serum or plasma total carbon dioxide measurement (moles/volume)Ordered By: Severo Lea on 02-07-2022 CO2 [Moles/Vol] 25.1 mmol/L 22.0-30.0 [facility] Serum or plasma urea nitroge n measurement (mass/volume)Ordered By: Severo Lea on 02-07-2022 Urea nitrogen [Mass/Vol] 11 mg/dL 06-11 [facility] Specific gravity Auto test s trip (U) [Rel density]Ordered By: Severo Lea on 02-07-2022 Specific gravity (U) [Rel density] 1.027 1.001-1.03 0 [facility] Urine clarity by refractomet ry automatedOrdered By: Severo Lea on 02-07-2022 Clarity Refractometry automated (U) Clear Clear [facility] Urine glucose measurement by automated test strip (mass/volume)Ordered By: Severo Lea on 02-07-2022 Glucose Auto test strip (U) [Mass/Vol] Normal mg/dL Normal [facility] Urine hemoglobin detection b y automated test stripOrdered By: Severo Lea on 02-07-2022 Hemoglobin Auto test strip Ql (U) Negative Negative [facility] Urine leukocyte esterase det ection by automated test stripOrdered By: Severo Lea on 02-07-2022 Leukocyte esterase Auto test strip Ql (U) Negative Negative [facility] Urobilinogen Auto test strip (U) [Mass/Vol]Ordered By: Severo Lea on 02-07-2022 Urobilinogen (U) [Mass/Vol] Normal mg/dL Normal [facility] pH Auto test strip (U)Ordere d By: Severo Lea on 02-07-2022 pH (U) 6.0 [pH] 5.0-9.0 [facility] COVID-19 SOFIAOrdered By: Juve Morris on 11-16-2021 SARS-CoV+SARS-CoV-2 (COVID-19) Ag IA.rapid Ql (Resp) Negative Negative [facility] Comment on above: This is a duplicate Ann SARS Antigen (DEMETRIUS) result to be used for statistical tracking purpose only. No Panel InformationOrdered By: Augustin Morris on 11-16-2021 SARS Antigen (LFIA) [facility] Vital Signs Date Time Vital Sign Value Performing Clinician Facility 02-19-2025 09:25-0400 Body mass index (BMI) [Ratio] 25.06 kg/m2 Curtis Flores DO Work Phone: [facility] 02-19-2025 09:25-0400 Body weight 66.22 kg Curtis Sandra DO Work Phone: [facility] 02-19-2025 09:25-0400 Diastolic blood pressure 72 mm[Hg] Curtis Sandra DO Work Phone: [facility] 02-19-2025 09:25-0400 Systolic blood pressure 112 mm[Hg] Curtis Sandra DO Work Phone: [facility] 01-15-2025 14:50-0400 Body mass index (BMI) [Ratio] 25.15 kg/m2 Curtis Sandra DO Work Phone: [facility] 01-15-2025 14:50-0400 Body weight 66.45 kg Curtis Sandra DO Work Phone: [facility] 01-15-2025 14:50-0400 Diastolic blood pressure 92 mm[Hg] Curtis Sandra DO Work Phone: [facility] 01-15-2025 14:50-0400 Systolic blood pressure 140 mm[Hg] Curtis Sandra DO Work Phone: [facility] 12-20-2024 10:02-0400 Body mass index (BMI) [Ratio] 25.3 kg/m2 Curtis Sandra DO Work Phone: [facility] 12-20-2024 10:02-0400 Body weight 66.86 kg Curtis Sandra DO Work Phone: [facility] 12-20-2024 10:02-0400 Diastolic blood pressure 78 mm[Hg] Curtis Sandra DO Work Phone: [facility] 12-20-2024 10:02-0400 Systolic blood pressure 122 mm[Hg] Curtis Sandra DO Work Phone: [facility] 11-21-2024 13:12-0500 Body mass index (BMI) [Ratio] 26.33 kg/m2 Melia DODSON Work Phone: [facility] 11-21-2024 13:12-0500 Body weight 69.58 kg Melia Epps PA Work Phone: [facility] 11-21-2024 13:12-0500 Diastolic blood pressure 80 mm[Hg] Melia Epps PA Work Phone: [facility] 11-21-2024 13:12-0500 Systolic blood pressure 128 mm[Hg] Melia Epps PA Work Phone: [facility] 10-29-2024 08:57-0500 Body height 162.56 cm Melia Warchol [employer]ARY [employer]ATION DEPARTMENT CHIEF-C Work Phone: [facility] 10-29-2024 08:57-0500 Body mass index (BMI) [Ratio] 25.3 kg/m2 Melia Warchol [employer] DEPARTMENT CHIEF-C Work Phone: [facility] 10-29-2024 08:57-0500 Body weight 67 kg Melia Warchol [employer]MENT CHIEF-C Work Phone: [facility] 10-22-2024 10:16-0500 Body mass index (BMI) [Ratio] 26.06 kg/m2 Melia Epps PA Work Phone: [facility] 10-22-2024 10:16-0500 Body weight 68.86 kg Melia Epps PA Work Phone: [facility] 10-22-2024 10:16-0500 Diastolic blood pressure 80 mm[Hg] Melia Epps PA Work Phone: [facility] 10-22-2024 10:16-0500 Systolic blood pressure 110 mm[Hg] Melia Stacy PA Work Phone: [facility] 10-17-2024 22:42-0500 Diastolic blood pressure 95 mm[Hg] Melia Warchol [employer] DE[employer]MENT CHIEF-C Work Phone: [facility] 10-17-2024 22:42-0500 Heart rate 85 /min Melia Warchol [employer] CHIEF-C Work Phone: [facility] 10-17-2024 22:42-0500 Respiratory rate 20 /min Melia Warchol [employer]MENT CHIEF-C Work Phone: [facility] 10-17-2024 22:42-0500 SaO2% (BldA) [Mass fraction] 100 % Melia Warchol [employer] DEPARTMENT CHIEF-C Work Phone: [facility] 10-17-2024 22:42-0500 Systolic blood pressure 138 mm[Hg] Melia Warchol [employer]MENT CHIEF-C Work Phone: [facility] 10-17-2024 19:50-0500 Body height 162.56 cm Melia Warchol [employer] DEPARTMENT CHIEF-C Work Phone: [facility] 10-17-2024 19:50-0500 Body temperature 97.5 [degF] Melia Warchol [employer] DE[employer]MENT CHIEF-C Work Phone: [facility] 10-17-2024 19:50-0500 Body weight 67.7 kg Melia Warchol [employer] DE[employer]MENT CHIEF-C Work Phone: [facility] 09-03-2024 10:32-0500 Body height 162.6 cm Melia Warchol [employer]ARY [employer]ATION DEPARTMENT CHIEF Work Phone: [facility] 09-03-2024 10:32-0500 Body mass index (BMI) [Ratio] 26.02 kg/m2 Melia Warchol [employer]ATION DEPARTMENT CHIEF Work Phone: [facility] 09-03-2024 10:32-0500 Body temperature 97.2 [degF] Melia Warchol [employer]ATION DEPARTMENT CHIEF Work Phone: [facility] 09-03-2024 10:32-0500 Body weight 68.77 kg Melia Warchol [employer]ATION DEPARTMENT CHIEF Work Phone: [facility] 09-03-2024 10:32-0500 Diastolic blood pressure 64 mm[Hg] Melia Warchol [employer]ATION DEPARTMENT CHIEF Work Phone: [facility] 09-03-2024 10:32-0500 Heart rate 87 /min Melia Warchol [employer] DEPARTMENT CHIEF Work Phone: [facility] 09-03-2024 10:32-0500 SaO2% (BldA) [Mass fraction] 99 % Melia Warchol [employer] DEPARTMENT CHIEF Work Phone: [facility] 09-03-2024 10:32-0500 Systolic blood pressure 118 mm[Hg] Melia Warchol [employer]ATION DEPARTMENT CHIEF Work Phone: [facility] 07-27-2024 10:31-0500 Body height 163.8 cm Melia Warchol [employer] DEPARTMENT CHIEF Work Phone: [facility] 07-27-2024 10:31-0500 Body mass index (BMI) [Ratio] 25.05 kg/m2 Melia Warchol [employer] DEPARTMENT CHIEF Work Phone: [facility] 07-27-2024 10:31-0500 Body weight 67.22 kg Melia Warchol [employer] DEPARTMENT CHIEF Work Phone: [facility] 07-27-2024 10:31-0500 Diastolic blood pressure 80 mm[Hg] Melia Warchol [employer]ATION DEPARTMENT CHIEF Work Phone: [facility] 07-27-2024 10:31-0500 Heart rate 90 /min Melia Warchol [employer] DEPARTMENT CHIEF Work Phone: [facility] 07-27-2024 10:31-0500 Respiratory rate 18 /min Melia Warchol [employer] DEPARTMENT CHIEF Work Phone: [facility] 07-27-2024 10:31-0500 SaO2% (BldA) [Mass fraction] 98 % Melia Warchol [employer]ATION DEPARTMENT CHIEF Work Phone: [facility] 07-27-2024 10:31-0500 Systolic blood pressure 136 mm[Hg] Melia Warchol [employer]ATION DEPARTMENT CHIEF Work Phone: [facility] 06-18-2024 14:33-0400 Body height 163.8 cm Melia Warchol [employer]ATION DEPARTMENT CHIEF Work Phone: [facility] 06-18-2024 14:33-0400 Body mass index (BMI) [Ratio] 25.45 kg/m2 Melia Warchol [employer] DEPARTMENT CHIEF Work Phone: [facility] 06-18-2024 14:33-0400 Body temperature 98.2 [degF] Melia Warchol [employer]ATION DEPARTMENT CHIEF Work Phone: [facility] 06-18-2024 14:33-0400 Body weight 68.31 kg Melia Warchol [employer]ATION DEPARTMENT CHIEF Work Phone: [facility] 06-18-2024 14:33-0400 Diastolic blood pressure 80 mm[Hg] Melia Costachol [employer]RARY [employer]ATION DEPARTMENT CHIEF Work Phone: [facility] 06-18-2024 14:33-0400 Heart rate 87 /min Melia Warchol [employer] DEPARTMENT CHIEF Work Phone: [facility] 06-18-2024 14:33-0400 Respiratory rate 18 /min Melia Warchol [employer]ATION DEPARTMENT CHIEF Work Phone: [facility] 06-18-2024 14:33-0400 SaO2% (BldA) [Mass fraction] 100 % Melia Igorchol [employer]ATION DEPARTMENT CHIEF Work Phone: [facility] 06-18-2024 14:33-0400 Systolic blood pressure 138 mm[Hg] Melia Costachol [employer]ATION DEPARTMENT CHIEF Work Phone: [facility] 02-07-2022 20:47-0400 Body height 161.29 cm MD Joe Rosenberg Work Phone: [facility] 02-07-2022 20:47-0400 Body mass index (BMI) [Percentile] Per age and sex 79.7 % MD Joe Rosenberg Work Phone: [facility] 02-07-2022 20:47-0400 Body mass index (BMI) [Ratio] 24.7 kg/m2 MD Joe Rosenberg Work Phone: [facility] 02-07-2022 20:47-0400 Body weight 64.41 kg MD Joe Rosenberg Work Phone: [facility] 02-07-2022 20:46-0400 Body temperature 98.6 [degF] MD Joe Rosenberg Work Phone: [facility] 02-07-2022 20:46-0400 Diastolic blood pressure 84 mm[Hg] MD Joe Rosenberg Work Phone: [facility] 02-07-2022 20:46-0400 Heart rate 95 /min MD Joe Rosenberg Work Phone: [facility] 02-07-2022 20:46-0400 Respiratory rate 18 /min MD Joe Rosenberg Work Phone: [facility] 02-07-2022 20:46-0400 SaO2% (BldA) [Mass fraction] 100 % MD Joe Rosenberg Work Phone: [facility] 02-07-2022 20:46-0400 Systolic blood pressure 138 mm[Hg] MD Joe Rosenberg Work Phone: [facility] Encounters Encounter Date Encounter Type Care Provider Facility Start: 04-10-2025 End: 04-10-2025 ambulatory Melia Mantilla [employer] CHIEF-C Work Phone: [facility] Work Phone: Start: 04-10-2025 End: 04-10-2025 Patient encounter procedure López Montilla MD -[facility] Pain [facility] Work Phone: Start: 02-19-2025 End: 02-19-2025 Bamboo flowsheet Curtis Sandra DO Work Phone: [facility] Start: 02-19-2025 End: 02-19-2025 Bamboo flowsheet Curtis Sandra DO Work Phone: [facility] Start: 02-19-2025 End: 02-19-2025 Office outpatient visit 15 minutes Curtis Sandra DO Work Phone: [facility] Comment on above: Encounter to discuss test results; History of ovarian cyst; Dermoid cyst Start: 02-19-2025 End: 02-19-2025 ambulatory CURTIS SANDRA Not Available Start: 02-05-2025 End: 02-05-2025 ambulatory MELIA STACY Not Available Start: 01-15-2025 End: 01-15-2025 ambulatory CURTIS SANDRA Not Available Start: 01-15-2025 End: 01-15-2025 Postop follow up visit related to original px Curtis Sandra DO Work Phone: [facility] Comment on above: Postoperative follow -up Start: 01-15-2025 End: 01-15-2025 Bamboo flowsheet Curtis Sandra DO Work Phone: [facility] Start: 01-15-2025 End: 01-15-2025 Bamboo flowsheet Curtis Sandra DO Work Phone: [facility] Start: 12-28-2024 End: 12-28-2024 Clinisync Result Encounter Curtis Sandra DO Work Phone: [facility] Unsolicited Start: 12-28-2024 End: 12-28-2024 Clinisync Result Encounter Curtis Sandra DO Work [...] 12-18-2024 End: 12-18-2024 Clinisync Result Encounter Melia Potter PA Work Phone: [facility] Unsolicited Start: 12-18-2024 End: 12-18-2024 Clinisync Result Encounter Melia DODSON Work Phone: [facility] Unsolicited Start: 12-12-2024 End: 12-12-2024 Patient encounter procedure Melia Mantilla [employer] CHIEF-C Work Phone: [facility] [address] [facility] Work Phone: Start: 12-12-2024 End: 12-12-2024 ambulatory Melia Mantilla [employer] DEPARTMENT CHIEF-C Work Phone: [facility] Work Phone: Start: 11-22-2024 End: 11-22-2024 Telephone encounter Melia Mantilla [employer]RARY CIRCULATION DEPARTMENT CHIEF Work Phone: [facility] Start: 11-21-2024 [...] pills Start: 11-21-2024 End: 11-21-2024 ambulatory MELIA WALKEREY Not Available Start: 11-20-2024 End: 11-20-2024 Patient encounter procedure Melia Mantilla [employer] DEPARTMENT CHIEF-C Work Phone: [facility] [address] [place] Work Phone: Start: 11-20-2024 End: 11-20-2024 ambulatory Melia Mantilla [employer] DEPARTMENT CHIEF-C Work Phone: [facility] Work Phone: Start: 11-09-2024 End: 11-12-2024 Telephone encounter Melia Mantilla [employer]ATION DEPARTMENT CHIEF Work Phone: [facility] Start: 11-06-2024 End: 11-06-2024 ambulatory MELIA POTTER Not Available Start: 10-29-2024 End: 10-29-2024 Patient encounter procedure Melia Mantilla [employer] DEPARTMENT CHIEF-C Work Phone: [facility] Pain [facility] Work Phone: Start: 10-22-2024 End: 10-22-2024 Office outpatient visit 15 minutes Melia Stacy PA Work Phone: [facility] Comment on above: Abdominal cramping; Cyst of left ovary Start: 10-22-2024 End: 10-22-2024 ambulatory MELIA POTTER Not Available Start: 10-17-2024 End: 10-18-2024 Emergency department patient visit Melia Mantilla [employer] DEPARTMENT CHIEF-C Work Phone: [facility]-Emergency Room Work Phone: Start: 10-15-2024 End: 10-15-2024 Telephone encounter Melia Mantilla [employer]ATION DEPARTMENT CHIEF Work Phone: [facility] Start: 09-24-2024 End: 09-24-2024 Telephone encounter Melia Mantilla [employer]ATION DEPARTMENT CHIEF Work Phone: [facility] Start: 09-03-2024 End: 09-03-2024 Bamboo flowsheet Melia Costachol [employer]ATION DEPARTMENT CHIEF Work Phone: [facility] Start: 09-03-2024 End: 09-03-2024 Bamboo flowsheet Melia Costachol [employer]ATION DEPARTMENT CHIEF Work Phone: [facility] Start: 09-03-2024 End: 09-03-2024 ambulatory MELIA MANTILLA Not Available Start: 09-03-2024 End: 09-03-2024 Office outpatient visit 25 minutes Melia Mantilla [employer] DEPARTMENT CHIEF Work Phone: [facility] Comment on above: Chronic midline low back pain without sciatica (Primary Dx); Lumbar radiculopathy Start: 08-28-2024 End: 08-28-2024 Telephone encounter Melia Mantilla [employer]ATION DEPARTMENT CHIEF Work Phone: [facility] Start: 08-23-2024 End: 08-23-2024 ambulatory Melia Mantilla [employer] DEPARTMENT CHIEF-C Work Phone: [facility] Work Phone: Start: 08-23-2024 End: 08-23-2024 Discharged Recurring Melia Mantilla [employer] DEPARTMENT CHIEF-C Work Phone: [facility] [facility] Start: 07-27-2024 End: 07-27-2024 Bamboo flowsheet Melia Mantilla [employer]ATION DEPARTMENT CHIEF Work Phone: [facility] Start: 07-27-2024 End: 07-27-2024 Bamboo flowsheet Melia Mantilla [employer]ATION DEPARTMENT CHIEF Work Phone: [facility] Start: 07-27-2024 End: 07-27-2024 ambulatory MELIA MANTILLA Not Available Start: 07-27-2024 End: 07-27-2024 Office outpatient visit 25 minutes Melia Mantilla [employer]ATION DEPARTMENT CHIEF Work Phone: [facility] Comment on above: 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); Person consulting for explanation of examination or test finding; Bilateral sacroiliitis (CMS/HCC) Start: 07-25-2024 End: 07-25-2024 Patient encounter procedure [employer] CHIEF-C Melia Mantilla Work Phone: [facility] Work Phone: Start: 07-25-2024 End: 07-25-2024 ambulatory [employer]PARTMENT CHIEF-C Melia Mantilla Work Phone: [facility] Work Phone: Start: 07-25-2024 Encounter for genera l adult medical examination without abnormal findings Melia Hernán [facility] Start: 06-18-2024 End: 06-18-2024 Office outpatient visit 25 minutes Melia Mantilla [employer]ATION DEPARTMENT CHIEF Work Phone: [facility] Comment on above: Adult general medica l examination (Primary Dx); Muscle cramping; Bilateral sacroiliitis (CMS/HCC); Left lumbar radiculopathy; 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-sided sciatica Start: 06-18-2024 End: 06-18-2024 Patient encounter status Melia Mantilla [employer]ATION DEPARTMENT CHIEF Work Phone: [facility] Start: 06-18-2024 End: 06-18-2024 ambulatory MELIA MANTILLA Not Available Start: 06-18-2024 End: 06-18-2024 Bamboo flowsheet Melia Mantilla [employer] CIRCULATION DEPARTMENT CHIEF Work Phone: [facility] Start: 06-18-2024 End: 06-18-2024 Bamboo flowsheet Melia Mantilla [employer] CIRC[employer]ATION DEPARTMENT CHIEF Work Phone: [facility] Start: 11-04-2023 End: 11-04-2023 ambulatory MD Joe Rosenberg Work Phone: [facility] Work Phone: Start: 11-04-2023 End: 11-04-2023 Departed Referred MD Joe Rosenberg Work Phone: [facility] Path [facility] Start: 11-03-2023 Clinisync Result Encounter Curtis Sandra DO Work Phone: [facility] Unsolicited Start: 11-03-2023 Clinisync Result Encounter Curtis Sandra DO Work Phone: [facility] Unsolicited Start: 01-10-2023 End: 01-11-[address] JOE ROSENBERG . Facility:[facility] Start: 11-12-2022 End: 11-12-[address] CURTIS FLORES . Facility:[facility] Start: 11-05-2022 Encounter for other preprocedural examination DR CURTIS FLORES . [facility] Start: 11-01-2022 End: 11-02-[address] CURTIS FLORES . Facility:[facility] Start: 11-01-2022 End: 11-02-2022 Encounter for other preprocedural examination DR CURTIS FLORES . Facility:[facility] Start: 10-19-2022 End: 10-20-[address] CURTIS FLORES . Facility:[facility] Start: 10-15-2022 End: 10-16-[address] CURTIS FLORES . Facility:[facility] Start: 10-06-2022 End: 10-07-[address] CURTIS FLORES . Facility:[facility] Start: 05-04-2022 End: 05-04-[address] REBECCA GIBBS . Facility: Start: 02-07-2022 End: 02-07-2022 Emergency department patient visit MD Joe Rosenberg Work Phone: [facility]-Emergency Room Start: 11-16-2021 End: 11-16-2021 Patient encounter procedure MD Joe Rosenberg Work Phone: [facility] Swab Procedures Date Procedure Procedure Detail Performing Clinician Start: 12-28-2024 HCG QUALITATIVE* Curtis Sandra DO Work Phone: Start: 12-27-2024 ALL CBC WITH AUTO DIFF Curtis Sandra DO Work Phone: Start: 12-20-2024 ALL [facility] Curtis Fazi o DO Work Phone: Start: 12-18-2024 US PELVIS W/ TRANSVAGINAL Melia Potter PA Work Phone: Start: 12-12-2024 MR lumbar spine wo con Melia Mantilla [employer] DEPARTMENT CHIEF-C Work Phone: Start: 11-20-2024 Carcinoembryonic antigen cea Melia Mantilla Comment on above: Result Comment: Seri al tumor marker results determined by assays using different manufacturers or methods may not be comparable. [facility] quality systems engineer and method: NILS UNICEL DXI, 2 SITE IMMUNOENZYMATIC ?SANDWICH? ASSAY. PERFORMED BY: [place] [address] PATHOLOGIST DEPUTY FELONY CLERK CORNELIUS MARK M.D. Performed By: #### C EA, HCGQNT #### [place] [address] [place] #### AFPTM, CA125, LDI #### [facility] , Start: 10-22-2024 Urine test visual color cmprsn meths Melia DODSON Work Phone: Start: 07-25-2024 Plain X-ray of sacro iliac joint [employer] DEPARTMENT CHIEF-C Melia Mantilla Work Phone: Start: 07-25-2024 X-ray of lumbar spin e, two or three views [employer] DEPARTMENT CHIEF-C Melia Mantilla Work Phone: Start: 11-03-2023 ALL [facility] Curtis Fazi o DO Work Phone: Start: 11-16-2021 SARS Antigen (LFIA) MD Joe Rosenberg Work Phone: Plan of Treatment Date Care Activity Detail Author Start: 08-21-2025 End: 08-21-2025 Professional / ancillary services management 08/21/2025 8:00 AM EST Ancillary Procedure [facility] [address] [place] [address] [facility] Start: 05-20-2025 Influenza vaccination Influenz a Vaccine (Season Ended) [facility] Start: 02-19-2025 End: 08-21-2025 US Pelvis US Pelvis w/ TV Imaging Routine History of ovarian cyst Dermoid cyst Expected: 02/19/2025, Expires: 08/21/2025 [facility] Work Phone: Comment on above: Expected: 02/19/2025 , Expires: 08/21/2025 Start: 02-19-2025 End: 02-19-2025 Patient encounter procedure 02/19/2025 9:40 AM EDT Office Visit [facility] [address] [place] [address] SandarCurtis, DO [address], [place] [address] Arrived [facility] Comment on above: Arrived Start: 02-05-2025 End: 02-05-2025 Professional / ancillary services management 02/05/2025 1:00 PM EDT Ancillary Procedure [facility] [address] [place] [address] [facility] Start: 01-15-2025 End: 01-15-2025 Patient encounter procedure 01/15/2025 2:40 PM EDT Office Visit [facility] [address] [place] [address] Curtis Flores DO [address] [place] [address] [facility] Start: 12-25-2024 Influenza vaccination Influenza Vacc ine (#1) [facility] Comment on above: Postponed from 05/20 (Patient Refused) Start: 12-20-2024 End: 12-20-2025 AFP tumor marker AFP tumor marker Lab Routine Complex ovarian cyst Expected: 12/20/2024, Expires: 12/20/2025 [facility] Comment on above: Expected: 12/20/2024 , Expires: 12/20/2025 Start: 12-20-2024 End: 12-20-2025 CA 125 CA 125 Lab Routine Complex ovarian cyst Expected: 12/20/2024, Expires: 12/20/2025 [facility] Comment on above: Expected: 12/20/2024 , Expires: 12/20/2025 Start: 12-20-2024 End: 12-20-2025 Carcinoembryonic Ag [Mass/volume] in Serum or Plasma CEA Lab Routine Complex ovarian cyst Expected: 12/20/2024, Expires: 12/20/2025 [facility] Comment on above: Expected: 12/20/2024 , Expires: 12/20/2025 Start: 12-20-2024 End: 12-20-2025 HCG, tumor marker HCG, tumor marker Lab Routine Complex ovarian cyst Expected: 12/20/2024 (Approximate), Expires: 12/20/2025 [facility] Comment on above: Expected: 12/20/2024 (Approximate), Expires: 12/20/2025 Start: 12-20-2024 End: 12-20-2025 Lactate dehydrogenase, isoenzymes Lactate dehydrogenase, isoenzymes Lab Routine Complex ovarian cyst Expected: 12/20/2024, Expires: 12/20/2025 [facility] Work Phone: Comment on above: Expected: 12/20/2024 , Expires: 12/20/2025 Start: 12-20-2024 End: 12-20-2025 US Pelvis US Pelvis w/ TV Imaging Routine Complex ovarian cyst Expected: 12/20/2024, Expires: 12/20/2025 [facility] Comment on above: Expected: 12/20/2024 , Expires: 12/20/2025 Start: 12-20-2024 End: 12-20-2024 Patient encounter procedure 12/20/2024 9:40 AM EDT Office Visit [facility] [address] [place] [phone] Curtis Flores, DO [address] [place] [address] [facility] Start: 12-18-2024 End: 12-18-2024 Professional / ancillary services management 12/18/2024 8:00 AM EDT Ancillary Procedure [facility] [address] [place] [id number] [facility] Start: 11-21-2024 End: 11-21-2025 US Pelvis US Pelvis w/ TV Imaging Routine Complex ovarian cyst Expected: 11/21/2024, Expires: 11/21/2025 [facility] Comment on above: Expected: 11/21/2024 , Expires: 11/21/2025 Start: 11-21-2024 End: 11-21-2024 Patient encounter procedure [facility] Comment on above: Arrived Start: 11-20-2024 [facility] Start: 11-12-2024 End: 11-12-2025 MR Lumbar spine WO contrast MR lumbar spine wo contrast Imaging Routine 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-sided sciatica Left lumbar radiculopathy Expected: 11/12/2024, Expires: 11/12/2025 [facility] Work Phone: Comment on above: Expected: 11/12/2024 , Expires: 11/12/2025 Start: 11-06-2024 End: 11-06-2024 Professional / ancillary services management 11/06/2024 1:00 PM EST Ancillary Procedure [facility] [address] [place] [phone] [facility] Start: 10-22-2024 End: 10-22-2025 US Pelvis US Pelvis w/ TV Imaging Routine Abdominal cramping Cyst of left ovary Expected: 10/22/2024, Expires: 10/22/2025 [facility] Work Phone: Comment on above: Expected: 10/22/2024 , Expires: 10/22/2025 Start: 09-21-2024 Influenza vaccination Influenza Vacc ine (#1) [facility] Comment on above: Postponed from 05/20 (Patient Refused) Start: 09-03-2024 End: 09-03-2024 Patient encounter procedure 09/03/2024 10:20 AM EST Office Visit [facility] [address] [place] [id number] Melia Mantilla [employer]ATION DEPARTMENT CHIEF [address] [place] [address] [facility] Start: 07-02-2024 End: 07-02-2024 Patient encounter procedure 07/02/2024 2:40 PM EDT Office Visit [facility] [address] [place] [address] Melia Mantilla [employer] DEPARTMENT CHIEF [address] [place] [address] [facility] Start: 06-18-2024 End: 06-18-2024 Patient encounter procedure 06/18/2024 2:20 PM EDT Office Visit [facility] [address] [place] [id number] Melia Mantilla, [employer]ATION DEPARTMENT CHIEF [address] [place] [address] Arrived [facility] Comment on above: Arrived Start: 05-20-2024 Influenza vaccination Influenza Vacc ine (#1) [facility] CBC W Auto Different ial panel - Blood CBC auto differential Lab Routine Adult general medical examination Ordered: 06/18/2024 [facility] Comment on above: Ordered: 06/18/2024 Comprehensive metabo lic 2000 panel - Serum or Plasma Comprehensive metabolic panel Lab Routine Adult general medical examination Ordered: 06/18/2024 [facility] Comment on above: Ordered: 06/18/2024 Cytology Cervical or vaginal smear or scraping study Pap Smear Pathology and Cytology Routine Well woman exam with routine gynecological exam Ordered: 11/21/2024 [facility] Work Phone: Comment on above: Ordered: 11/21/2024 Magnesium [Mass/volu me] in Serum or Plasma Magnesium Lab Routine Muscle cramping Ordered: 06/18/2024 [facility] Comment on above: Ordered: 06/18/2024 MR Lumbar spine WO contrast MR lumbar spine wo contrast Imaging Routine Chronic midline low back pain without sciatica Lumbar radiculopathy Ordered: 09/03/2024 [facility] Work Phone: Comment on above: Ordered: 09/03/2024 Patient Education [facility] Work Phone: Patient referral [facility] Work Phone: XR Lumbar spine 2 or 3 Views XR lumbar spine 2 or 3 views Imaging Routine Left lumbar radiculopathy 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-sided sciatica Ordered: 06/18/2024 [facility] Work Phone: Comment on above: Ordered: 06/18/2024 XR Sacroiliac Joint 3 Views XR sacroiliac joints 3+ views Imaging Routine Left lumbar radiculopathy 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-sided sciatica Ordered: 06/18/2024 [facility] Comment on above: Ordered: 06/18/2024 Immunizations Immunization Date Immunization Notes Care Provider Olena serrano 06-22-2021 meningococcal oligosaccharide (groups A, C, Y and W-135) diphtheria toxoid conjugate vaccine (MCV4O) Melia Mantilla [employer] Work Phone: [facility] 05-04-2016 meningococcal polysaccharide (groups A, C, Y and W-135) diphtheria toxoid conjugate vaccine (MCV4P) Melia Mantilla [employer] Work Phone: [facility] 05-04-2016 tetanus toxoid, redu jimenez diphtheria toxoid, and acellular pertussis vaccine, adsorbed Melia Hernán [employer] Work Phone: [facility] 03-06-2009 diphtheria, tetanus toxoids and acellular pertussis vaccine, unspecified formulation Melia Igorchol [employer] Work Phone: [facility] 03-06-2009 hepatitis A vaccine, pediatric/adolescent dosage, 2 dose schedule Melia Igorchol [employer] Work Phone: [facility] 03-06-2009 measles, mumps and r ubella virus vaccine Melia Igorchol [employer] Work Phone: [facility] 03-06-2009 poliovirus vaccine, inactivated [facility] [employer] Work Phone: [facility] 03-06-2009 varicella virus vaccine Melia Costachol [employer] Work Phone: [facility] 01-06-2007 diphtheria, tetanus toxoids and acellular pertussis vaccine, unspecified formulation [facility] [employer] Work Phone: [facility] 01-06-2007 haemophilus influenz ae type b vaccine, PRP-T conjugate [facility] [employer] Work Phone: [facility] 01-06-2007 hepatitis A vaccine, pediatric/adolescent dosage, 2 dose schedule Melia Costachol [employer] Work Phone: [facility] 01-06-2007 measles, mumps, rube lla, and varicella virus vaccine [facility] [employer] Work Phone: [facility] 01-06-2007 pneumococcal conjuga te vaccine, 7 valent [facility] [employer] Work Phone: [facility] 05-22-2004 diphtheria, tetanus toxoids and acellular pertussis vaccine, unspecified formulation Melia Costachol [employer] Work Phone: [facility] 05-22-2004 haemophilus influenz ae type b vaccine, PRP-T conjugate [facility] [employer] Work Phone: [facility] 05-22-2004 hepatitis B vaccine, pediatric or pediatric/adolescent dosage Melia Warchol [employer] Work Phone: [facility] 05-22-2004 pneumococcal conjuga te vaccine, 7 valent Melia Warchol [employer] Work Phone: [facility] 05-22-2004 poliovirus vaccine, inactivated Melia Warchol [employer] Work Phone: [facility] 03-05-2004 diphtheria, tetanus toxoids and acellular pertussis vaccine, unspecified formulation Melia Warchol [employer] Work Phone: [facility] 03-05-2004 haemophilus influenz ae type b vaccine, PRP-T conjugate Melia Warchol [employer] Work Phone: [facility] 03-05-2004 hepatitis B vaccine, pediatric or pediatric/adolescent dosage Melia Warchol [employer] Work Phone: [facility] 03-05-2004 pneumococcal conjuga te vaccine, 7 valent Melia Warchol [employer] Work Phone: [facility] 03-05-2004 poliovirus vaccine, inactivated Melia Warchol [employer] Work Phone: [facility] 2003 diphtheria, tetanus toxoids and acellular pertussis vaccine, unspecified formulation Melia Warchol [employer] Work Phone: [facility] 2003 haemophilus influenz ae type b vaccine, PRP-T conjugate Melia Warchol [employer] Work Phone: [facility] 2003 hepatitis B vaccine, pediatric or pediatric/adolescent dosage Melia Warchol [employer] Work Phone: [facility] 2003 poliovirus vaccine, inactivated Melia Warchol [employer] Work Phone: [facility] Payers Date Payer Category Payer Self-pay [id number] 2024 Medicaid (Managed Care) [facility] MEDICAID [id number] 2023 Medicaid [id number] 2003 Unknown [id number] 2.16.840.1.101757.3.579.2. 593 2003 Unknown [id number] 2.16.840.1.230063.3.579.2. 593 2003 Unknown [id number] 2.16.840.1.875095.3.579.2. 593 2003 Unknown [id number] 2.16.840.1.177228.3.579.2. 593 2003 Unknown [id number] 2.16.840.1.366412.3.579.2. 593 2003 Unknown [id number] 2.16.840.1.664888.3.579.2. 593 2003 Unknown [id number] 2.16.840.1.709995.3.579.2. 593 2003 Unknown [id number] 2.16.840.1.284966.3.579.2. 1259 2003 Unknown [id number] 2.16.840.1.852540.3.579.2. 1259 2003 Unknown [id number] 2.16.840.1.128233.3.579.2. 1259 2003 Unknown [id number] 2.16.840.1.535436.3.579.2. 1259 2003 Unknown [id number] 2.16.840.1.357845.3.579.2. 1259 2003 Unknown [id number] 2.16.840.1.710223.3.579.2. 1259 2003 Unknown [id number] 2.16.840.1.677960.3.579.2. 1259 2003 Unknown [id number] 2.16.840.1.161735.3.579.2. 1259 2003 Unknown [id number] 2.16.840.1.395155.3.579.2. 1259 2003 Unknown [id number] 2.16.840.1.672775.3.579.2. 1259 1959 Medicaid [id number] Unknown [id number] 2.16.840.1.589938.3.579.2. 531 Unknown [id number] 2.16.840.1.266904.3.579.2. 531 Unknown [id number] 2.16.840.1.236524.3.579.2. 531 Unknown [id number] 2.16.840.1.927806.3.579.2. 531 Unknown [id number] 2.16.840.1.753119.3.579.2. 531 Social History Date Type Detail Facility Start: 02-07-2022 End: 10-04-2023 Tobacco smoking status MTIS Never smoked tobacco (finding) [facility] Start: 2003 Sex Assigned At Female [facility] [place] Start: 10-04-2023 Tobacco use and exposure Smoke less tobacco non-user [facility] Start: 10-19-2023 End: 02-19-2025 Alcohol intake Lifetime non-drinker (finding) [facility] [...] to any clubs or organizations such as holiness groups, unions, fraternal or athletic groups, or [...] Start: 10-16-2024 End: 12-13-2024 Sex Female (finding) [facility] Start: 10-17-2024 End: 10-17-2024 Tobacco smoking status NHIS Smoker (finding) [facility] Start: 10-17-2024 Tobacco smoking stat us [facility] Smokes tobacco daily (finding) [facility] NEGATED: Highlighted row [facility] Clinical Notes 11-12-2022 to 02-19-2025 Mary Baugh, DIRECTOR OF EPIDEMIOLOGY - 02/19/2025 9:40 AM Tani Baugh, NORIS - 01/15/2025 2:40 PM Apryl Irizarry LPN - 12/20/2024 9:40 AM EDTTelephone Encounter - Melia Mantilla NP - 11/22/2024 2:58 PM EST Note Date & Type Note Facility 02-19-2025 History of Presen t illness Narrative Reason [...] Daily, Take 1 tablet by mouth daily ALLERGIES No Known Allergies PROBLEMS Active [...] HISTORY Past Surgical History: Procedure Laterality Date CYSTOTOMY Left 12/28/2024 ovarian LAPAROSCOPY DIAGNOSTIC / BIOPSY / ASPIRATION / LYSIS 11/12/2022 Dx lap w/left ovarian cystotomy LAPAROSCOPY DIAGNOSTIC / BIOPSY / ASPIRATION / LYSIS 11/04/2023 LAPAROSCOPY DIAGNOSTIC / BIOPSY / ASPIRATION / LYSIS Left 12/28/2024 robotic assisted- lt ovairn cystotomy, chromopertubation OTHER SURGICAL HISTORY 2009 dental work REVIEW OF SYSTEMS Review of Systems: Review of Systems Constitutional: Negative. HENT: Negative. Eyes: Negative. Respiratory: Negative. Cardiovascular: Negative. Gastrointestinal: Negative. Genitourinary: Negative. Musculoskeletal: Negative. Skin: Negative. Neurological: [...] nursing note reviewed. Exam conducted with a fourth mate present. Vitals: Estimated body mass index is 25.06 kg/m as calculated from the following: Height as of 24: 5' 4 . Weight as of this encounter: 146 lb. BP: 112/72 No LMP recorded. ASSESSMENT & PLAN ICD-10-CM 1. Encounter to discuss test results Z71.2 Pt presents to discuss results of US. Reviewed results in detail. Pt pain is much better and ovarian cysts reviewed and pt given ultrasound to have obtained in 6 months to document resolution and make sure dermoid isn't getting bigger, if needed in interim pt advised to call office. Documented by Mary Baugh LPN on behalf of: Curtis Flores DO documented in this encounter [facility] 01-15-2025 History of Presen t illness Narrative Reason for Appointment: Patient ID: Berenice Lopez is a 19 y.o. female who presents for Post-op Visit Patient presents today for 2 Week Post Op Follow Up appointment. MEDICATIONS Current Outpatient Medications Medication Instructions amoxicillin [...] HISTORY Past Surgical History: Procedure Laterality Date CYSTOTOMY Left 12/28/2024 ovarian LAPAROSCOPY DIAGNOSTIC / BIOPSY / ASPIRATION / LYSIS 11/12/2022 Dx lap w/left ovarian cystotomy LAPAROSCOPY DIAGNOSTIC / BIOPSY / ASPIRATION / LYSIS 11/04/2023 LAPAROSCOPY DIAGNOSTIC / BIOPSY / ASPIRATION / LYSIS Left 12/28/2024 robotic assisted- lt ovairn cystotomy, chromopertubation OTHER SURGICAL HISTORY 2009 dental work REVIEW OF SYSTEMS Review of Systems: Review of Systems Constitutional: Negative. HENT: Negative. Eyes: Negative. Respiratory: Negative. Cardiovascular: Negative. Gastrointestinal: Negative. Genitourinary: Negative. Musculoskeletal: Negative. Skin: Negative. Neurological: [...] nursing note reviewed. Exam conducted with a fourth mate present. Vitals: Estimated body mass index is 25.15 kg/m as calculated from the following: Height as of 09/03/24: 5' 4 . Weight as of this encounter: 146 lb 8 oz. BP: (!) 140/92 No LMP recorded. ASSESSMENT & PLAN ICD-10-CM 1. Postoperative follow-up Z09 Pt presents for 2 week postop dx lap with FOE. Discussed surgery with pt in detail. Pt stopped ocp - will start trying. Incisions healing well with no s/s of infection. Documented by Mary Baugh LPN on behalf of: Curtis Flores DO documented in this encounter [facility] 12-20-2024 History of Presen t illness Narrative [...] nursing note reviewed. Exam conducted with a fourth mate present. Vitals: Estimated body mass index is 25.3 kg/m as calculated from the following: Height as of 24: 5' 4 . Weight as of this [...] by Diandra Irizarry LPN on behalf of: Curtsi Flores DO documented in this encounter [facility] 11-22-2024 Telephone encount er Note Sent [facility] 11-22-2024 Miscellaneous Notes Formattin g of this note might be different from the original. Sent documented in this encounter [facility] 11-21-2024 History of Presen t illness [...] nursing note reviewed. Exam conducted with a fourth mate present. Vitals: Estimated body mass index is 26.33 kg/m as calculated from the following: Height as of 12/16/24: 5' 4 . Weight as of this [...] of: IVORY Wills documented in this encounter [facility] 11-12-2024 Telephone encount er Note New order sent [facility] 11-12-2024 Miscellaneous Notes Formattin g of this note might be different from the original. New order sent Insurance denied MRI due to them wanting PT done first, patient completed PT as of 10/16/24 & Dr go office is wanting us to appeal the MRI we ordered- MRI for Lumbar documented in this encounter [facility] 11-09-2024 Telephone encount er Note Insurance denied MRI due to them wanting PT done first, patient completed PT as of 10/16/24 & Dr go office is wanting us to appeal the MRI we ordered- MRI for Lumbar [facility] 10-29-2024 Evaluation note Diagnosis Onset Date Resolution Chronic pain acute October 8:56am Other low back pain acute Febru boaz 2024 8:56am Other spondylosis with radiculopathy, lumbosacral region acute October 8:56am [facility] Work Phone: 1(250) 388-735402-03-2025 History of Present illness Narrative* IVORY Wills [...] behalf of: IVORY Wills documented in this [facility]01-27-2025 Telephone encounter Note* Telephone Encounter - Melia Mantilla NP - 10/15/2024 1:29 PM EST MRI was denied. Patient states she is still having terrible pain in her back that seems to be worsening. Discussed pain management referral [facility] [id number] Miscellaneous Notes* Telephone Encounter - Melia Mantilla NP - 10/15/2024 1:29 PM EST MRI was denied. Patient states she is still having terrible pain in her back that seems to be worsening. Discussed pain management referral documented in this [facility]01-06-2025 Telephone encounter Note* Telephone Encounter - Melia Mantilla NP - 09/24/2024 5:41 PM EST Sent [id number] Miscellaneous Notes* Telephone Encounter - Melia Mantilla NP - 09/24/2024 5:41 PM EST Sent documented in this encounter[facility] [id number] History of Present illness Narrative* Melia Mantilla [...] scheduled follow-up review MRI. documented in this [facility]12-16-2024 Instructions* Patient Instructions* Melia Mantilla NP [...] use of controlled substances. documented in this [facility]12-10-2024 Telephone encounter Note* Telephone Encounter - Melia Mantilla NP - 08/28/2024 12:57 PM EST sent [id number] Miscellaneous Notes* Telephone Encounter - Melia Mantilla NP - 08/28/2024 12:57 PM EST sent documented in this [facility]11-08-2024 History of Present illness Narrative* Melia Mantilla [...] follow-up: back pain . documented in this encounterHarry [facility]. [facility] [id number] Instructions* Patient Instructions* Melia Mantilla NP - [...] use of controlled substances. documented in this encounterHarry [facility]. [facility] [id number] History of Present illness Narrative* Melia Mantilla [...] for Next scheduled follow-up. documented in this encounterHarry [facility]. [facility] [id number] Instructions* Patient Instructions* Melia Mantilla NP - [...] use of controlled substances. documented in this encounterHarry S. [facility] [id number] NotePROCEDURE: XR HIPS DANNIELLE 5V W PELVIS HISTORY: Pain in thoracic spine ; bilateral hip pain, right greater than left COMPARISON: None. FINDINGS: BONES:No fracture, acute abnormality, or significant arthropathy. SOFT TISSUES:No visible soft tissue swelling. EFFUSION:None visible. OTHER: Negative. IMPRESSION: 1. Normal examination. Electronically authenticated by: JOY CARDOZA Date: 2023-01-10 11:58[facility]02-24-2023 NoteOP Note OPERATION DATE: 11/12/2022 PROCEDURE: Diagnostic laparoscopy with left ovarian cystotomy with drainage of chocolate cyst with left ovarian cystectomy, lysis of adhesions and fulguration of endometriosis on the patient's right ovary. PREOPERATIVE DIAGNOSIS: Pelvic pain, suspect endometriosis; left ovarian cyst. POSTOPERATIVE DIAGNOSIS: Pelvic pain, suspect endometriosis; left ovarian cyst. ANESTHESIA: General. SURGEON: Curtis Flores D.O. SALES RECRUITING COORDINATOR: KATHY Max URINE OUTPUT: Yellow and [...] the regular diagnostic laparoscopy procedure only.) ?[id number] NoteOP Note OPERATION DATE: 11/12/2022 PROCEDURE: Diagnostic laparoscopy with left ovarian cystotomy with drainage of chocolate cyst with left ovarian cystectomy, lysis of adhesions and fulguration of endometriosis on the patient's right ovary. PREOPERATIVE DIAGNOSIS: Pelvic pain, suspect endometriosis; left ovarian cyst. POSTOPERATIVE DIAGNOSIS: Pelvic pain, suspect endometriosis; left ovarian cyst. ANESTHESIA: General. SURGEON: Curtis Flores D.O. SALES RECRUITING COORDINATOR: KATHY Max URINE OUTPUT: Yellow and [...] inserted the regular diagnostic laparoscopy procedure only.)[facility] noteNo assessment information availableThe [facility] Work Phone: Evaluation note* Diagnosis Chronic midline low back pain with bilateral sciatica- Primary Person consulting for explanation of examination or test finding Bilateral sacroiliitis (CMS/HCC) documented in this encounter [facility]* Diagnosis Bilateral sacroiliitis (CMS/HCC) Chronic midline low back pain with bilateral sciatica documented in this encounter [facility]* Diagnosis Chronic midline low back pain without sciatica- Primary Lumbar radiculopathy Thoracic or lumbosacral neuritis or radiculitis, unspecified documented in this encounter [facility]* Diagnosis Adult general medical examination- Primary Unspecified general medical examination Muscle cramping Bilateral sacroiliitis (CMS/HCC) Left lumbar radiculopathy Thoracic or lumbosacral neuritis or radiculitis, unspecified 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-sided sciatica documented in this encounter [facility]* Diagnosis Bilateral sacroiliitis (CMS/HCC) Chronic midline low back pain with bilateral sciatica documented in this encounter [facility]* Diagnosis Chronic midline low back pain without sciatica- Primary Left lumbar radiculopathy Thoracic or lumbosacral neuritis or radiculitis, unspecified 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-sided sciatica Bilateral sacroiliitis (CMS/HCC) documented in this encounter [facility]* Diagnosis Abdominal cramping Abdominal pain, unspecified site Cyst of left ovary Other and unspecified ovarian cyst documented in this encounter [facility]* Diagnosis 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-sided sciatica- Primary Left lumbar radiculopathy Thoracic or lumbosacral neuritis or radiculitis, unspecified documented in this encounter [facility]* Diagnosis Well woman exam with routine gynecological exam Routine gynecological examination Complex ovarian cyst Nausea Nausea alone Encounter for initial prescription of contraceptive pills documented in this encounter [facility]* Diagnosis Bilateral sacroiliitis (CMS/HCC) Chronic midline low back pain with bilateral sciatica documented in this encounter [facility]* Diagnosis Encounter to discuss test results Other specified counseling Complex ovarian cyst documented in this encounter [facility]* Diagnosis Postoperative follow-up Follow-up examination, following unspecified surgery documented in this encounter [facility] Healthcare[facility] note* Diagnosis Encounter to discuss test results Other specified counseling History of ovarian cyst Personal history of other genital system and obstetric disorders Dermoid cyst documented in this encounter [facility]* Diagnosis Onset Date Resolution Status Admit Date Chronic pain acute April 10, 9:23am Disc herniation acute March 9:23am Other spondylosis with radiculopathy, lumbosacral region acute April 10, 2025 9:23am [facility] Work Phone: Hospital Discharge instructions Additional Instructions I am glad that you are feeling better. Your symptoms are likely residual after your vomiting and diarrhea. I will prescribe medicine for nausea and for cramping. If you have any problems or concerns, we are always happy to see you here. I do want you to follow-up with your doctor.[facility] Work Phone: Reason for referral (narrative)No reason for referral information availableK[facility]tering [facility] Work Phone: Chief Complaint and [...] G89.29 M54.16 December 12, 2024 7: 49am Chief Complaint Admit Date RECHECK April 10, 2025 9:23 am Reason for Visit Admit Date Chronic pain April 10, 2025 9:23 am Disc herniation April 10, 2025 9:23 am Other spondylosis with radiculopathy, tylor mbosacral region April 10, 2025 9:23am Advance Directives Advance Directive Response Recorded Date/ [...] Active Severo Lea MD Emergency Provider Active Irrigator Overhead Relationship Specialty Start Date End Date Joe Rosenberg MD [address] [place] [id number] PCP - General Family Medicine 10/19/23 Team Status: Active Member Role Status Dates SUSANA WyattC Primary Care Provider Active Team Status: Inactive Member Role Status Dates SUSANA WyattC Primary Care Provide r, Attending Provider Active Start: July 25, 2024 End: July 25, 2024 Irrigator Overhead Relationship Specialty Start Date End Date Jigar Grace MD [address] [place] [address] PCP - General Family Medicine 02/23/24 Melia Mantilla NP [address] [place] [address] Nurse Practitioner Family Medicine 02/23/24 Awilda Tejada NP [address] [place] [phone] Nurse Practitioner Family Medicine 02/23/24 Irrigator Overhead Relationship Specialty Start Date End Date Jigar Grace MD [address] [place] [address] PCP - General Family Medicine 02/23/24 Melia Mantilla NP [address] [place] [address] Nurse Practitioner Family Medicine 02/23/24 Awilda Tejada NP [address] [place] [phone] Nurse Practitioner Family Medicine 02/23/24 Irrigator Overhead Relationship Specialty Start Date End Date Jigar Grace MD [address] [place] [address] PCP - General Family Medicine 02/23/24 Melia Mantilla NP [address] [place] [address] Nurse Practitioner Family Medicine 02/23/24 Awilda Tejada NP [address] [place] [phone] Nurse Practitioner Family Medicine 02/23/24 Irrigator Overhead Relationship Specialty Start Date End Date Jigar Grace MD [address] [place] [address] PCP - General Family Medicine 02/23/24 Melia Mantilla NP [address] [place] [address] Nurse Practitioner Family Medicine 02/23/24 Awilda Tejada NP [address] [place] [address] Nurse Practitioner Family Medicine 02/23/24 Irrigator Overhead Relationship Specialty Start Date End Date Jigar Grace MD [address] [place] [address] PCP - General Family Medicine 02/23/24 Melia Mantilla NP [address] [place] [address] Nurse Practitioner Family Medicine 02/23/24 Awilda Tejada NP [address] [place] [phone] Nurse Practitioner Family Medicine 02/23/24 Irrigator Overhead Relationship Specialty Start Date End Date Jigar Grace MD [address] [place] [address] PCP - General Family Medicine 02/23/24 Melia Mantilla NP [address] [place] [address] Nurse Practitioner Family Medicine 02/23/24 Awilda Tejada NP [address] [place] [phone] Nurse Practitioner Family Medicine 02/23/24 Irrigator Overhead Relationship Specialty Start Date End Date Jigar Grace MD [address] [place], [facility] PCP - General Family Medicine 02/23/24 Melia Mantilla NP [address], [facility] Nurse Practitioner Family Medicine 02/23/24 Awilda Tejada NP [address] [place] [phone] Nurse Practitioner Family Medicine 02/23/24 Irrigator Overhead Relationship Specialty Start Date End Date Jigar Grace MD [address] [place], [facility] PCP - General Family Medicine 02/23/24 Melia Mantilla NP [address] [place] [address] Nurse Practitioner Family Medicine 02/23/24 Awilda Tejada NP [address] [place] [address] Nurse Practitioner Family Medicine 02/23/24 Team Status: [...] October 17, 2024 End: October 18, 2024 Irrigator Overhead Relationship Specialty Start Date End Date Jigar Grace MD [address] [place] [address] PCP - General Family Medicine 02/23/24 Melia Mantilla NP [address] [place] [id number] Nurse Practitioner Family Medicine 02/23/24 Awilda Tejada NP [address] [place] [address] Nurse Practitioner Family Medicine 02/23/24 Irrigator Overhead Relationship Specialty Start Date End Date Jigar Grace MD [address] [place] [address] PCP - General Family Medicine 02/23/24 Melia Mantilla NP [address] [place] [address] PCP - [facility] 09/19/24 Melia Mantilla NP [address] [place] [address] Nurse Practitioner Family Medicine 02/23/24 Awilda Tejada NP [address] [place] [address] Nurse Practitioner Family Medicine 02/23/24 Irrigator Overhead Relationship Specialty Start Date End Date Jigar Grace MD [address] [place] [id number] PCP - General [facility] 02/23/24 Melia Mantilla NP [address] [place] [address] PCP - [facility] 09/19/24 Melia Mantilla NP [address] [place] [phone] Nurse Practitioner Family [facility] 02/23/24 Awilda Tejada NP [address] [place] [address] Nurse Practitioner Family [facility] 02/23/24 Irrigator Overhead Relationship Specialty Start Date End Date Jigar Grace MD [address] [place] [id number] PCP - General [facility] 02/23/24 Melia Mantilla NP [address] [place] [phone] PCP - [facility] 09/19/24 Melia Mantilla NP [address] [place] [address] Nurse Practitioner Family Medicine 02/23/24 Awilda Tejada NP [address] [place] [address] Nurse Practitioner [facility] Medicine 02/23/24 Irrigator Overhead Relationship Specialty Start Date End Date Jigar Grace MD [address] [place] [address] PCP - [facility] 02/23/24 Melia Mantilla NP [address] [place] [address] PCP - [facility] 09/19/24 Melia Mantilla NP [address] [place] [address] Nurse Practitioner [facility] 02/23/24 Awilda Tejada NP [address] [place] [address] Nurse Practitioner [facility] 02/23/24 Team Status: Inactive Member Role Status [...] December 12, 2024 End: December 12, 2024 Irrigator Overhead Relationship Specialty Start Date End Date Jigar Grace MD [address] [place] [address] PCP - General Family Medicine 02/23/24 Melia Mantilla NP [address] [place] [address] PCP - [facility] 09/19/24 Melia Mantilla NP [address] [place] [address] Nurse Practitioner Family Medicine 02/23/24 Awilda Tejada [employer] [address] [place] [address] Nurse Practitioner Family Medicine 02/23/24 Irrigator Overhead Relationship Specialty Start Date End Date Jigar Grace MD [address] [place] [address] PCP - General Family Medicine 02/23/24 Melia Mantilla NP [address] [place] [address] PCP - [facility] 09/19/24 Melia Mantilla [employer] CHIEF [address] [place] [address] Nurse Practitioner Family Medicine 02/23/24 Awilda Tejada [employer] CH[employer] [address] [place] [address] Nurse Practitioner Family Medicine 02/23/24 Irrigator Overhead Relationship Specialty Start Date End Date Jigar Grace MD [address] [place] [address] PCP - General Family Medicine 02/23/24 Melia Mantilla [employer] CHIEF [address] [place] [address] PCP - [facility] 09/19/24 Melia Mantilla NP [address] [place] [address] Nurse Practitioner Family Medicine 02/23/24 Awilda Tejada [employer] CH[employer]F [address] [place] [address] Nurse Practitioner Family Medicine 02/23/24 Irrigator Overhead Relationship Specialty Start Date End Date Jigar Grace MD [address] [place] [address] PCP - General Family Medicine 02/23/24 Melia Mantilla NP [address] [place] [address] [facility] 09/19/24 Melia Mantilla NP [address] [place] [address] Nurse Practitioner Family Medicine 02/23/24 Awilda Tejada [employer] CH[employer]F [address] [place] [place] [phone] Nurse Practitioner Family Medicine 02/23/24 Irrigator Overhead Relationship Specialty Start Date End Date Jigar Grace MD [address] [place] [address] PCP - General Family Medicine 02/23/24 Melia Mantilla NP [address] [place] [address] PCP - [facility] 09/19/24 Melia Mantilla NP [address] [place] [address] Nurse Practitioner Family Medicine 02/23/24 Awilda Tejada NP [address] [place] [address] Nurse Practitioner Family Medicine 02/23/24 Irrigator Overhead Relationship Specialty Start Date End Date Jigar Grace MD [address] [place] [address] PCP - General Family Medicine 02/23/24 Melia Mantilla NP [address] [place] [address] [facility] 09/19/24 Melia Mantilla NP [address] [place] [address] Nurse Practitioner Family Medicine 02/23/24 Awilda Tejada NP [address] [place] [address] Nurse Practitioner Family Medicine 02/23/24 Team Status: Inactive Member Role Status Dates Melia Mantilla NP-C Primary Care Provider Active Start: April 10, 2025 End: April 10, 2025 López Tomlin MD Attending Provider Active Sta rt: April 10, 2025 End: April 10, 2025 Goals (unrecognized section and content) Goals may [...] CREATED AUTHOR AUTHOR'S ORGANIZ ATION 12/13/2024 [facility] DATE CREATED AUTHOR AUTHOR'S ORGANIZ ATION 02/20/2025 [facility] EPIC Reason for Visit (unrecogniz ed section and content) Reason Comments Ovarian Cyst Reason Comments Well Women Visit Reason Comments Results Reason Comments Post-op Visit FOR RECORDS PERTAINING TO PATIENTS WHO [...] BE BASED ON THE PRIMARY CLINICAL RECORDS. [employer] [facility]. provides no warranty or guarantee of the accuracy or completeness of information in this document.
== END 2025-07-22 12:02 | disposition home or self-care (01) ==
LOC: LAB 14:00
PROVIDERS: PCP Family Medicine; Visit Provider Obstetrics & Gynecology
DX: Z51.81 Encounter for therapeutic drug level monitoring (principal); Z32.01 Encounter for pregnancy test, result positive
CPT/HCPCS: 36415; 84702

== ENCOUNTER 2025-08-06 14:48 | Outpatient (RCR) | payer MEDICAID, SELFPAY | END 2025-08-19 08:25 | disposition home or self-care (01) | LOC: LAB 14:48 | PROVIDERS: PCP Family Medicine; Visit Provider Obstetrics & Gynecology | DX: Z32.01 Encounter for pregnancy test, result positive (principal); N92.6 Irregular menstruation, unspecified; Z51.81 Encounter for therapeutic drug level monitoring | CPT/HCPCS: 36415; 84702 ==

== ENCOUNTER 2025-08-08 07:35 | Outpatient (OUT) | payer MEDICAID, SELFPAY ==
--- OUTSIDE RECORDS SUMMARY | 2021-07-27 06:00 | XMS_ITS | Continuity of Care Document ---
Author Organization [facility] Address [address] [place] [address] Phone Care Team Providers Care Industrial Relations Officer Name Role Phone Dominic Lynn DO Unavailable Unavailable Allergies, Adverse Reactions, Alerts Substance Reaction Status Criticality No Known Allergies Active No Inform ation Procedures Procedure Date OFFICE/OUTPATIENT VISIT, [facility] Imm Admin Through 16 Yrs Of Age 021 Meningococcal Conjugate Vaccine 021 Advance Directives Directive Yes / No Effective Date File Name No Information Encounters Encounter Description Practice Location Reason(s) For Visit Diagnoses Date Provider Providers Copied on Encounter OFFICE/OUTPATI ENT VISIT, [facility], [address], [place], [id number], tel:[phone] ROGELIO Well child (chief complaint) Body mass index [BMI] pediatric, 85th percentile to less than 95th percentile for ageEncounter for routine child health examination without abnormal findings Leah Hu. [address], [place], [id number], [place]. tel:[phone] [facility], [address], [place], [id number], tel:[phone] [facility] No Information Stef Cabezas. [address], [place], [id number], [place]. tel:[phone] Family History Family Member Type Diagnosis Age At Onset No Information Immunizations Vaccine Date Status Comments meningococcal B, OMV, 2 dose schedule refused Note: Wanted to disc uss with parents. ; Source: New Immunization Record HPV (9-valent) refused Note: Wanted to discuss with parents. ; Source: New Immunization Record Meningococcal MCV4O administered Source: New Immunization Record Payers Payer name Insurance type Covered green party ID Steffany maloney(s) Medicaid [facility] [id number] Medicaid Wrap - [facility] [place] [id number] Social History Type Description Quantity Date Captured Comments Alcohol Use Details No Caffeine Use Details coffee and soda 16 oz per day 2020 Tobacco Use Status Current non-smoker Smoking Status Never smoker Non-Smoking Tobacco Use Details : No Details Available : No Details Available [id number] SexFemaleSexual OrientationDon't KnowGender IdentityFemale Vital Signs Date / Time: Height Weight BMI Pulse Rate Blood Pressure Temperature Respiratory Rate Body Surface Area Head Circumference Head Circ. Percentile Wt./Vikram. Percentile BMI percentile Pulse Ox Inhaled Ox 11:13 AM 63.50 in 76.113 kg (167.80 lbs) 29.2 6 kg/m eter (2) 94 /min 136/88 mm[Hg] 98.00 F 93 99 % 11:27 AM 118/76 mm[Hg] Chief Complaint And Reason For Visit From encounter dated '07/27/2021 11:00'. Well child (chief complaint). Description: Pt here today for work permit physical. Pt's PCPis Dr. Rosenberg. Pt does have a dental provider but unsure of name. Pt is UTD on vaccines. No questions or concerns at this time. Curry Raines, RN Reason For Referral Reason For Referral No Information Plan Of Treatment Date Type Action Status Goal Dietary management education , guidance, and counseling completed History Of Present Illness Encounter Date Complaint History Of Prese nt Illness Well child Pt here today fo r work permit physical. Pt's PCP is Dr. Rosenberg. Pt does have a dental provider but unsure of name. Pt is UTD on vaccines. No questions or concerns at this time. Curry Raines, RN Functional Status Date Functional Assessmen t No Information Instructions Date Instruction Additional Infor tone Giving encouragement to exercise Related to Body mass index [BMI] pediatric, 85th percentile to less than 95th percentile for age Dietary management e ducation, guidance, and counseling Related to Body mass index [BMI] pediatric, 85th percentile to less than 95th percentile for age Assessments Type Assessment Date assessment Body mass index [BMI ] pediatric, 85th percentile to less than 95th percentile for age assessment Encounter for routin e child health examination without abnormal findings impression exam and hx unremark able. form completed .no work restrictions based on exam and history today Mental Status Date Cognitive Assessment Orientation - [place] ed to time, place, person, situation. Patient Care Teams Name Effective Dates (start - stop) Status Members No Information
--- OUTSIDE RECORDS SUMMARY | 2021-07-27 06:00 | XMS_ITS | Continuity of Care Document ---
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 Name Role Phone Dominic Lynn DO Unavailable Unavailable Allergies, Adverse Reactions, Alerts Substance Reaction Status Criticality No Known Allergies Active No Inform ation Procedures Procedure Date OFFICE/OUTPATIENT VISIT, [facility] Imm Admin Through 16 Yrs Of Age 021 Meningococcal Conjugate Vaccine 021 Advance Directives Directive Yes / No Effective Date File Name No Information Encounters Encounter Description Practice Location Reason(s) For Visit Diagnoses Date Provider Providers Copied on Encounter OFFICE/OUTPATI ENT VISIT, [facility], [address], [place], [id number], tel:[phone] ROGELIO Well child (chief complaint) Body mass index [BMI] pediatric, 85th percentile to less than 95th percentile for ageEncounter for routine child health examination without abnormal findings Leah Hu. [address], [place], [id number], [place]. tel:[phone] [facility], [address], [place], [id number], tel:[phone] [facility] No Information Stef Cabezas. [address], [place], [id number], [place]. tel:[phone] Family History Family Member Type Diagnosis Age At Onset No Information Immunizations Vaccine Date Status Comments meningococcal B, OMV, 2 dose schedule refused Note: Wanted to disc uss with parents. ; Source: New Immunization Record HPV (9-valent) refused Note: Wanted to discuss with parents. ; Source: New Immunization Record Meningococcal MCV4O administered Source: New Immunization Record Payers Payer name Insurance type Covered constitution party ID Steffany maloney(s) Medicaid [facility] [id number] Medicaid Wrap - [employer] [place] [id number] Social History Type Description Quantity Date Captured Comments Alcohol Use Details No Caffeine Use Details coffee and soda 16 oz per day 2020 Tobacco Use Status Current non-smoker Smoking Status Never smoker Non-Smoking Tobacco Use Details : No Details Available : No Details Available [id number] SexFemaleSexual OrientationDon't KnowGender IdentityFemale Vital Signs Date [...] Mental Status Date Cognitive Assessment Orientation - [place] ed to time, place, person, situation. Patient Care Teams Name Effective Dates (start - stop) Status Members No Information
--- OUTSIDE RECORDS SUMMARY | 2024-12-25 04:00 | XMS_ITS ---
Author Organization [facility] [place] Address [address] [place] [address] Care Team Providers Care Prehemmer Name Role Phone Aniket Rosenberg Primary Care Provider REASON FOR VISIT f/u Encounters Encounter Location Date Provider Diagnosis [facility] [address] [place] [address] 12/25/2024 Aniket Rosenberg Plan Of Treatment No Information Progress Notes * So LOPEZDOB:2005 ( 19 yo F)Acc No.[id number]:12/25/2024 UNLOCKED PROGRESS NOTE Progress Note Patient: So RIVERA :?Farshad Rosenberg (TTC), MDDOB:2005???Age: 19 Y???Sex:FemaleDate:12/25/2024Phone:[phone]:[address] [place], [place] [id number] Subjective: * Chief Complaints: * 1 . F/u. * Medical History: Objective: * Vitals: Assessment: Plan: * Treatment: * * Electronic signature of Aniket Rosenberg MD, [id number] on 08/08/2025 at 07:39 AM EST Sign off status: PendingVisit Status:?N/S N/C (No Show/No Charge) * Provider: Hector Rosenberg MD (TTC) Date: 0 12/25/2024 Generated for Printing/Faxing/eTransmitting on:?08/08/2025 07:39 AM EST
--- OUTSIDE RECORDS SUMMARY | 2024-12-27 08:30 | XMS_ITS ---
Author Organization [facility] in [place] Address [address] [place] [address] Care Team Providers Care Pattern Technician Name Role Phone Aniket Rosenberg Primary Care Provider REASON FOR VISIT f/u Encounters Encounter Location Date Provider Diagnosis [facility] [address] [place] [address] 12/27/2024 Aniket Rosenberg Plan Of Treatment No Information Progress Notes * So LOPEZDOB:2005 ( 19 yo F)Acc No.[id number]:12/27/2024 UNLOCKED PROGRESS NOTE Progress Note Patient: So RIVERA :?Farshad MONTANA), MDDOB:2005???Age: 19 Y???Sex:FemaleDate:12/27/2024Phone:[phone]:[address] [place], [place] [id number] Subjective: * Chief Complaints: * 1 . F/u. * Medical History: Objective: * Vitals: Assessment: Plan: * Treatment: * * Electronic signature of Aniket Rosenberg MD, [id number] on 08/08/2025 at 07:40 AM EST Sign off status: PendingVisit Status:?N/S N/C (No Show/No Charge) * Provider: Hector Rosenberg MD (TTC) Date: 0 12/27/2024 Generated for Printing/Faxing/eTransmitting on:?08/08/2025 07:40 AM EST
--- OUTSIDE RECORDS SUMMARY | 2025-08-08 07:40 | XMS_ITS | Clinical Summary ---
Author Organization [facility] Healthcare Address [address] [place] [address] Care Team Providers Care Heavy Equipment Supervisor Name Role Phone Jigar Grace MD Primary Care Provider [phone] Melia Jim NP Unavailable Awilda Tejada NP Unavailable Melia Jim NP Unavailable Allergies No known active allergies Medications MedicationSigDispense QuantityRefillsLast FilledStart DateEnd DateStatus gabapentin (Neurontin) 600 MG tablet Indications:Bilateral sacroiliitis,Chronic midline low back pain with bilateral sciaticaTake 1 tablet (600 mg) by mouth in the morning and 1 tablet (600 mg) in the evening and 1 tablet (600 mg) before bedtime. 90 tablet 5Active Progesterone 200 MG suppository Indications:History of miscarriageInsert 200 mg into the vagina at bedtime Insert suppository vaginally every night at bedtime until 12 weeks gestation 30 suppository 5Active norgestimate-ethinyl estradiol (Sprintec 28) 0.25-35 MG-MCG tablet Indications:Encounter for initial prescription of contraceptive pillsTake 1 tablet by mouth Daily Take 1 tablet by mouth daily 28 tablet 110Discontinued(Therapy completed) amoxicillin (Amoxil) 500 MG capsule TAKE 1 CAPSULE BY MOUTH EVERY 8 HOURS UNTIL GONEDiscontinued (Therapy completed) ondansetron ODT (Zofran-ODT) 4 MG disintegrating tablet Indications:NauseaTake 1 tablet (4 mg) by mouth every 6 (six) hours if needed for nausea or vomiting 30 tablet Expired Progesterone 200 MG suppository Indications:History of miscarriageInsert 200 mg into the vagina at bedtime Insert suppository vaginally every night at bedtime until 12 weeks gestation 30 suppository Discontinued Active Problems ProblemNoted DateDiagnosed DateSpontaneous ([facility])07/11/2025Encounter for surgical fcdssldmpe18/15/2024 Encounters DateTypeDepartmentCare RbfbGfgdffeolqx96/18/2025linisync Result Encounter [facility] External Department Unsolicited Curtis Flores DO 08/05/2025Telephone [facility] [address] [place] [address] Chanelle Joseph MA 07/16/2025 10:50 AM EDTOffice Visit [facility] [address] [place] [address] Curtis Flores DO Positive urine test ([facility]); Follow-up visit after miscarriage ([facility])07/16/2025amboo flowsheet [facility] [address] [place] [address] Curtis Flores DO 07/10/2025bstract [facility] [address] [place] [address] Iris Bolden MA 07/05/2025Telephone [facility] [address] [place] [address] Curtis Flores, DO 07/03/2025Telephone [facility] [address] [place] [address] Curtis Flores, DO 07/03/2025Refill [facility] [address] [place] [address] Alisha Lee, LEAN SENSEI Bnpiio8206/26/2025Telephone [facility] [address] [place] [address] Chanelle Joseph MA 5Clinisync Result Encounter [facility] External Department Unsolicited Curtis Flores, DO 06/24/2025linisync Result Encounter [facility] External Department Unsolicited Curtis Flores, DO 06/24/2025Refill [facility] [address] [place] [address] Chanelle Joseph MA Rjigcy6506/24/2025Telephone [facility] [address] [place] [address] Chanelle Joseph MA from Last 3 Months Immunizations ImmunizationAdministration DatesNext DueDTaP, Undckuorcuf81/18/2009,01/06/2007, 05/22/2004,03/05/2004,2003Hep A, ped/adol, 2 dose03/06/2009,01/06/2007Hep B, Adolescent or Ijlrxucdy54/03/2004,03/05/2004,2003Hib (PRP-T)01/06/2007, 05/22/2004,03/05/2004,2003IPV03/06/2009,05/22/2004,03/05/2004,2003 MMR03/06/2009MMRV01/06/2007Meningococcal MQE1F01Meningococcal MCV4P 05/04/2016Pneumococcal Conjugate PCV 7001/06/2007,05/22/2004,03/05/2004Tdap 05/04/20166788Xxowuzgiq08/18/2009 Family History Medical HistoryRelationNameCommentsMental illnessFatherMental illnessMother DiabetesPaternal GrandfatherCancerPaternal GrandmotherDiabetesPaternal GrandmotherRelationNameStatusCommentsFatherAliveMotherAlivePaternal Grandfather Paternal GrandmotherSisterAlive Social History Tobacco UseTypesPacks/DayYears UsedDateSmoking Tobacco: NeverSmokeless Tobacco: Never Tobacco Cessation:Counseling Given: Not Answered Alcohol UseStandard Drinks/WeekCommentsNever0 (1 standard drink = 0.6 oz pure alcohol)B1300 Health LiteracyAnswerDate RecordedHow often do you need to have someone help you when you read instructions, pamphlets, or other written material from your doctor or pharmacy?Never06/18/2024Social Connection and Isolation PanelAnswerDate RecordedIn a typical week, how many times do you talk on the phone with family, friends, or neighbors?Once a week06/18/2024How often do you get together with friends or relatives?Once a week06/18/2024How often do you attend mu-ism or jehovah's witness services?Never06/18/2024o you belong to any clubs or organizations such as mu-ism groups, unions, fraternal or athletic bety ups, or school groups?No06/18/2024How often do you attend meetings of the clubs or organizations you belong to?Never06/18/2024re you , , , , never , or living with a partner?Living with partner 06/18/2024UDIT-CAnswerDate RecordedQ1: How often do you have a drink containing alcohol?Never06/18/2024Q2: How many drinks containing alcohol do you have on a typical day when you are drinking?Patient does not drink06/18/2024Q3: How often do you have six or more drinks on one occasion?Never06/18/2024Overall Financial Resource Strain (CARDIA)AnswerDate RecordedHow hard is it for you to pay for the very basics like food, housing, medical care, and heating?Hard06/18/2024HQ-2 AnswerDate RecordedPatient Health Questionnaire-2 Dlgmv17711/04/2023[facility] [place] of Occupational Health - Occupational Stress QuestionnaireAnswerDate RecordedDo you feel stress - tense, restless, nervous, or anxious, or unable to sleep at night because yourmind is troubled all the time - these days?Rather much06/18/2024Exercise Vital SignAnswerDate RecordedOn average, how many days per week do you engage in moderate to strenuous exercise (like a brisk walk)?7 days06/18/2024On average, how many minutes do you engage in exercise at this level?30 min06/18/2024Hunger Vital SignAnswerDate RecordedWithin the past 12 months, you worried that your food would run out before you got the money to buy more.Never true06/18/2024Within the past 12 months, the food you bought just didn't last and you didn't have money to get more.Never true06/18/2024RAPARE - TransportationAnswerDate RecordedIn the past 12 months, has lack of transportation kept you from medical appointments or from getting medications?No 06/18/2024In the past 12 months, has lack of transportation kept you from meetings, work, or from getting things needed for daily living?No06/18/2024 Housing Stability Vital SignAnswerDate RecordedIn the last 12 months, was there a time when you were not able to pay the mortgage or rent on time?No06/18/2024In the past 12 months, how many times have you moved where you were living?0 06/18/2024t any time in the past 12 months, were you homeless or living in a retirement (including now)?No06/18/2024CommentsNoSex and Gender Information ValueDate RecordedSex Assigned at BirthNot on fileLegal AaqJxdijg26/15/2023 7:33 PM EDTGender IdentityNot on fileSexual OrientationNot on file Last Filed Vital Signs Vital SignReadingTime TakenCommentsBlood Kjqdkgss089/8210/ 11:11 AM EDT Holtl840509/03/2024 10:32 AM TYSVjptadadudb81.2 ??C (97.2 ??F)09/03/2024 10:32 AM ESTRespiratory Twfg829709/26/2023 10:31 AM ESTOxygen Xfydkocjnw77%09/03/2024 10:32 AM ESTInhaled Oxygen Concentration--Snsvzi42.8 kg (138 lb 8 oz)07/16/2025 11:05 AM OPFYlzgdk448.6 cm (5' 4 )09/03/2024 10:32 AM ESTBody Mass Index23.77 09/03/2024 10:32 AM EST Plan of Treatment Health MaintenanceDue DateLast DoneCommentsCOVID-19 Vaccine ( season) 2025Influenza Vaccine (#1)2025Pneumococcal Vaccine: Pediatrics (0 to 5 Years) and At-Risk Patients (6 to 64 Years)Aged Out01/06/2007, 05/22/2004, 03/05/2004No longer eligible based on patient's age to complete this topic Procedures Procedure NamePriorityDate/TimeAssociated DiagnosisCommentsTBH PREG QUANT HCG Picanre0308/06/2025 3:08 PM EST H PREG QUANT TFIWjgbpiz31/08/2025 10:00 AM EDT [facility] PREG QUANT NKNZpxjbgr91/06/2025 2:10 PM EDT from Last 3 Months Results * [facility] PREG QUANT HCG (08/06/2025 3:08 PM EST) Only the most recent of3 resultswithin the time period is included. ComponentValueRef RangeTest MethodAnalysis TimePerformed AtPathologist Signature HCG RRWMOWSTXYZT233wWK/mLTBHComment: 5-50 ? 0.2-1 WEEK 50-500 ? 1-2 WEEKS 100-5,000 ?2-3 WEEKS 500-10,000 ? 3-4 WEEKS 1,000-50,000 ?? 4-5 WEEKS 10,000-100,000 5-6 WEEKS 15,000-200,000 6-8 WEEKS 10,000-100,000 2-3 MONTHS Specimen (Source)Anatomical Location / LateralityCollection Method / Volume Collection TimeReceived Time08/06/2025 3:08 PM EST08/06/2025 3:10 PM EST Narrative [facility] - 08/06/2025 3:54 PM EST Authorizing ProviderResult TypeResult StatusCorey Sandra DOCLINISYNCFinal Result Performing OrganizationAddressCity/State/ZIP CodePhone Number [facility] from Last 3 Months Insurance Care Teams Team MemberRelationshipSpecialtyStart DateEnd Date Jigar Grace MD [address] [place] [address] [facility] - [facility] Melia Jim NP [address] [address] [place] [address] PCP - [facility]4/09/2510 Melia Jim NP [address] [address] [place] [address] Nurse PractitionerFamily Medicine02/23/24 Awilad Tejada NP [address] [place] [address] Nurse PractitionerFaClinch [facility]02/23/24
--- OUTSIDE RECORDS SUMMARY | 2025-08-08 07:40 | XMS_ITS | Encounter Summary ---
Author Organization [facility] Address [address] [place] [address] Care Team Providers Care Stamper Blocker Name Role Phone Jigar Grace MD Primary Care Provider [phone] Melia Jim NP Unavailable Awilda Tejada VISUAL PRESENTATION MANAGER Unavailable [phone] Melia Jim VISUAL PRESENTATION MANAGER Unavailable Encounter Details DateTypeDepartmentCare Team (Latest Contact Info)Bmorrlnjarn86/17/2025Telephone [facility] O[facility]YTab[facility] [address] [place] [address] Chanelle Joseph MA [address] [address] Social History Tobacco UseTypesPacks/DayYears UsedDateSmoking Tobacco: NeverSmokeless Tobacco: NeverAlcohol UseStandard Drinks/WeekCommentsNever0 (1 standard drink = 0.6 [...] relatives?Once a week06/18/2024How often do you attend worship or mu-ism services?Never06/18/2024o you belong to any clubs or organizations such as worship groups, unions, fraternal or athletic bety ups, [...] care, and heating?Hard06/18/2024HQ-2 AnswerDate RecordedPatient Health Questionnaire-2 Bfxhw37211/04/2023[facility] [place] of Occupational Health - Occupational Stress QuestionnaireAnswerDate [...] homeless or living in a alf (including now)?No06/18/2024CommentsNoSex and Gender Information ValueDate RecordedSex Assigned at BirthNot on fileLegal MqjNvruvr44/15/2023 7:33 PM EDTGender IdentityNot on fileSexual OrientationNot on filedocumented as of this encounter Miscellaneous Notes * Telephone Encounter - Chanelle Joseph MA - 08/05/2025 9:43 AM EST Pt called + prego test at home. Hcg labs were sent to [facility] to have drawn today and repeat again in 2days. PVU. And progesterone suppositories were sent [facility]. Pt is aware once the medication is ready to vegetable picker and start right away. PVU. documented in this encounter Plan of Treatment NameTypePriorityAssociated DiagnosesOrder SchedulehCG, quantitative, LabRoutine Positive urine test ([facility]) Missed menses Expected: 08/05/2025 (Approximate), Expires: 02/02/2026documented as of this encounter Visit Diagnoses Diagnosis Positive urine test ([facility]) Missed menses History of miscarriage Personal history of other genital system and obstetric disorders documented in this encounter Care Teams Team MemberRelationshipSpecialtyStart DateEnd Date Jigar Grace MD [address] [place] [address] [facility] - [facility] Melia Jim NP [address] [facility] [address] [place] [address] PCP - [facility]/ Melia Jim NP [address] [facility] [address] [place] [address] Nurse PractitionerFamily [facility]02/23/24 Awilda Tejada NP [address] [place] [address] Nurse PractitionerFamiWellstar [facility]02/23/24documented as of this encounter
--- OUTSIDE RECORDS SUMMARY | 2025-08-08 07:40 | XMS_ITS | Patient Health Record ---
Author Organization [facility] in [place] Address [address] [place] [address] Care Team Providers Care Dining Services Manager Name Role Phone Aniket Rosenberg Primary Care Provider [phone] Allergies No Known Allergies Results Component Value Reference Range Notes PREG QUANT HCG Reviewed date:06/24/2025 05:11:29 PM Interpretation: Performing Lab: Notes/Report: [facility] Quantitative 7180 5-50 0.2-1 WEEK 50-500 1-2 WEEKS 100-5,000 2-3 WEEKS 500-10,000 3-4 WEEKS 1,000-50,000 4-5 WEEKS 10,000-100,000 5-6 WEEKS 15,000-200,000 6-8 WEEKS 10,000-100,000 2-3 MONTHS Performing Lab:see noteML - [facility] LBPREG QUANT HCG Reviewed date:08/06/2025 06:46:03 PM Interpretation: Performing Lab: Notes/Report: [facility] Moercbrcphsi193 5-50 0.2-1 WEEK 50-500 1-2 WEEKS 100-5,000 2-3 WEEKS 500-10,000 3-4 WEEKS 1,000-50,000 4-5 WEEKS 10,000-100,000 5-6 WEEKS 15,000-200,000 6-8 WEEKS 10,000-100,000 2-3 MONTHS Performing Lab:see noteML - [facility] LBPREG QUANT HCG Reviewed date:06/26/2025 12:24:55 PM Interpretation: Performing Lab: Notes/Report: [facility] Vumimpdjmhdn5256 5-50 0.2-1 WEEK 50-500 1-2 WEEKS 100-5,000 2-3 WEEKS 500-10,000 3-4 WEEKS 1,000-50,000 4-5 WEEKS 10,000-100,000 5-6 WEEKS 15,000-200,000 6-8 WEEKS 10,000-100,000 2-3 MONTHS Performing Lab:see note - [facility] LBHCG Qualitative* Reviewed date:12/28/2024 12:47:44 PM Interpretation: Performing Lab: Notes/Report: [facility] ,HCG QualitativeNEGATIVENEGATIVEPerforming Lab:see noteML - [facility] LBPREG QUANT HCG Reviewed date:12/27/2024 12:09:30 PM Interpretation: Performing Lab: Notes/Report: [facility] ,HCG Quantitative<1 5-50 0.2-1 WEEK 50-500 1-2 WEEKS 100-5,000 2-3 WEEKS 500-10,000 3-4 WEEKS 1,000-50,000 4-5 WEEKS 10,000-100,000 5-6 WEEKS 15,000-200,000 6-8 WEEKS 10,000-100,000 2-3 MONTHS Performing Lab:see noteML - [facility] LBCBC AUTO DIFF Reviewed date:12/27/2024 12:09:30 PM Interpretation: Performing Lab: Notes/Report: [facility] ,White Blood Count6.14.0-11.0 10 3/uLRed Blood Count4.444.20-5.40 10 6/uL Bfwammollj30.712.0-16.0 g/xPYayeudblpk51.536.0-48.0 %Mean Corpuscular Llqhng72.7 81.0-99.0 fLMean Corpuscular Lzycbvtaow52.626.7-34.0 pgMean Corpuscular HGB Conc 33.029.9-35.2 g/dLRed Cell Distribution Width13.411.0-15.0 %Platelet Exxyz641 150-450 10 3/uLMean Platelet Vkewyp65.09.5-13.5 fLNeutrophils Percent Auto61.8 43.0-75.0 %Lymphocytes Percent Auto29.520.5-60.0 %Monocytes Percent Auto6.71.7- 12.0 %Eosinophils Percent Auto1.30.9-7.0 %Basophils Percent Auto0.50.2-2.0 % Immature Granulocytes Pct Auto0.20.0-0.5 %Neutrophils Absolute Auto3.81.4-6.5 10 3/uLLymphocytes Absolute Auto1.81.2-3.8 10 3/uLMonocytes Absolute Auto0.40.3-0.8 10 3/uLEosinophils Absolute Auto0.10.0-0.7 10 3/uLBasophils Absolute Auto0.00.0- 0.1 10 3/uLImmature Granulocytes Abs Auto0.010.00-0.03 10 3/uLPerforming Lab:see noteML - [facility] LBHCG Tumor Marker Reviewed date:12/23/2024 03:27:06 PM Interpretation: Performing Lab: Notes/Report: [facility] ,HCG Tumor Marker<1. mIU/mL Female (Non-) 0 - 5 (Postmenopausal) 0 - 8 [employer] Electrochemiluminescence Immunoassay (ECLIA) The [employer] HCG + beta assay recognizes the holo-hormone, human chorionic gonadotropin (hCG), nicked forms of hCG, the beta-core fragment and the free beta-subunit in human serum and plasma. Results obtained with different test methods or kits cannot used interchangeably. This assay is intended for the early detection of . The result should not be used for treatment or for diagnostic purposes without confirmation of the diagnosis by another medically established diagnostic product or procedure. This test was developed and its performance characteristics determined by [facility]. It has not been cleared or approved by the Food and Drug Administration for use as a tumor marker. This test is not interpretable as a tumor marker in females. Performed at: [address] [id number] [address] Sales Delivery Drivers Supervisor: Ced Masters PhD, Phone: [phone] Performing Lab:see note - [facility] LBCancer Antigen (CA) 125 Reviewed date:12/23/2024 03:27:06 PM Interpretation: Performing Lab: Notes/Report: [facility] ,Cancer Antigen (CA) 17687.40.0-38.1 U/mL [facility] Electrochemiluminescence Immunoassay (ECLIA) Values obtained with different assay methods or kits cannot be used interchangeably. Results cannot be interpreted as absolute evidence of the presence or absence of malignant disease. Performing Lab:see [facility] LBAFP, Serum, Tumor Marker Reviewed date:12/23/2024 03:27:06 PM Interpretation: Performing Lab: Notes/Report: [facility] ,AFP, Serum, Tumor Marker6.00.0-4.7 ng/mL [facility] Electrochemiluminescence Immunoassay (ECLIA) Values obtained with different assay methods or kits cannot be used interchangeably. Results cannot be interpreted as absolute evidence of the presence or absence of malignant disease. This test is not interpretable in females. Performing Lab:see [facility] LBCEA Reviewed date:12/23/2024 03:27:06 PM Interpretation: Performing Lab: Notes/Report: [facility] ,CEA1.20.0-4.7 ng/mL Nonsmokers <3.9 Smokers <5.6 [facility] Electrochemiluminescence Immunoassay (ECLIA) Values obtained with different assay methods or kits cannot be used interchangeably. Results cannot be interpreted as absolute evidence of the presence or absence of malignant disease. Performed at: [place] [address] [address] [employer] D[employer] Supervisor: Ced Masters PhD, Phone: [phone] Performing Lab:see [facility] LBUS pelvis w/ transvaginal Reviewed date:12/18/2024 04:24:50 PM Interpretation: Performing Lab: Notes/Report: Source Facility: [place] [address] [place] [address] Ultrasound Report Signed Patient: BERENICE LOPEZ MR#: [id number] : 2005 Acct:[id number] Age/Sex: 19 / F ADM Date: 12/18/24 Loc: US Attending Dr: Melia Potter Ordering Physician: Melia Potter Date of Service: 12/18/24 Procedure(s): US pelvis w/ transvaginal Accession Number(s): [id number] cc: Melia Potter; Farshad Rosenberg M.D. The [place] [address] Patient Name: BERENICE LOPEZ MRN: [id number] date: 2005 Sex: F Assigned Patient Location: Current Patient Location: [place] Accession/Order Number: [id number] Exam Date: 12/18/2024 09:05 Report Date: 12/18/2024 [...] Mary Gordillo M.D.12/18/2024 9:16 AM Dictation Location: [place] [address] Electronically authenticated by: [id number] Y Date: 12/18/2024 09:16 Dictated By: Mary Gordillo M.D. Signed By: 12/18/24918 DD/ 5 TD/TT: Allocations Clerk:Purnima GARCIA HPV,Age Gdln Reviewed date:11/25/2024 09:54:57 AM Interpretation: Performing Lab: Notes/Report: BRUSH-SPATULA CERVIX ENDOCERVIX [facility] ,Age Gdln ACOG TestingNote. TESTS RESULT FLAG UNITS REF RANGE LAB Clinician Provided Cytology Information Source.............Cervix;Endocervix No. of containers..01 ThinPrep Vial Age Algo ACOG Tiffany... FLAG LEGEND: L-Low Normal,H-High Normal,LL-Alert Low,HH-Alert High <-Panic Low,>-Panic High,A-Abnormal,AA-Critical Abnormal Performed at: 01 =G [facility] [place] [address] Aniya Cook MD, JOSE, rfx Aptima HPV ASCUNote. TESTS RESULT FLAG UNITS REF RANGE LAB DIAGNOSIS: 02 NEGATIVE FOR INTRAEPITHELIAL LESION OR MALIGNANCY. Specimen adequacy: 02 Satisfactory for evaluation. Endocervical and/or squamous metaplastic cells (endocervical component) are present. Performed by: 02 Helene Costello, Employment Recruiter ([facility]) . 02 Note: Note 03 The Pap smear is a screening test designed to aid in the detection of premalignant and malignant conditions of the uterine cervix. It is not a diagnostic procedure and should not be used as the sole means of detecting cervical cancer. Both false-positive and false-negative reports do occur. Test Methodology: Note 03 This liquid based ThinPrep(R) pap test was screened with the use of an image guided system. . 02 The HPV DNA reflex criteria were not met with this specimen result therefore, no HPV testing was performed. FLAG LEGEND: L-Low Normal,H-High Normal,LL-Alert Low,HH-Alert High <-Panic Low,>-Panic High,A-Abnormal,AA-Critical Abnormal Performed at: 02 [facility] [address] [address] [place] [address] Yvan Gibson MD, 03 WB [facility] [address] [address] Aniya Cook MD, Performed at: =G - [facility] [id number] Route Sales Delivery Drivers Supervisor: Aniay Cook MD, Phone: [phone] Performed at: [facility] - [facility] [address] [place], [place] [id number] Route Sales Delivery Drivers Supervisor: Yvan Gibson MD, Phone: [phone] Performing Lab:see [facility] Reviewed date:12/20/2024 05:17:47 PM Interpretation: Performing Lab: Notes/Report: [facility] ,Lactate Eufywhcozjrlj58330-556 U/LPerforming Lab:see noteML - [facility] LB Reason For Referral Diagnosis 1 Low back pain at [facility] sites (M54.50) Referral Organization [facility] Medicine Referring Provider First Name Aniket Referring Provider Last Name Chet Referring Provider Speciality Family [facility] icine Referred Provider Cedric Navarrete Referred Provider Specialty Pain Medicin e Referral Priority Routine Medications Medication SIG (Take, Route, Frequency, Duration) Notes Start Date End Date Status Gabapentin 600 MG 1 tablet Orally bid; Duration: 30 days ActivetiZANidine HCl 4 MG2 tabs Orally qhs; Duration: 30 days03/26/2025tive Social History Tobacco Use: Social History Observation Description Date Details (start date - stop date) Never Smoker NA - NA Tobacco Control (Standard) Question Answer Notes Tobacco use: Nonsmoker AUDIT-C (Standard) Question Answer Notes Did you have a drink containing alcohol in the p ast year? No Jupsqz9CrbebemtuqzecdChfvqeeq Problems Problem Type SNOMED Code ICD Code Onset Dates Problem Status W/U Status Risk Notes Problem Lumbar radiculopathy (231216894) Lumbar r adiculopathy (M54.16) ActiveconfirmedProblemOvarian cyst (14787537)Ovarian cyst (N83.209)Active confirmedProblemLow back pain (finding) (950357232)Low back pain at multiple sites (M54.50)Activeconfirmed Vital Signs Blood pressure diastolic 100 mm Hg 03/26/2025 Ejxyqy62 in03/26/2025lood pressure icqgubed009 mm Hg03/26/20250813Vejewb210.0 lbs 03/26/2025BMI24.54 kg/m203/26/2025 Encounters Encounter Location Date Provider Diagnosis [facility] [address] [place] [address] 03/26/2025 Aniket Hoabdiel Low back pain at multiple sites M54.50 and Lumbar radiculopathy M54.16 [facility] [address] [place] [address] 12/18/2024 Aniket Hoy [facility] [place] [address] 03/26/2025Doug HoyLow back pain at multiple sites M54.50 and Lumbar radiculopathy M54.16[place] [address] [place] [address]/04/2025[facility] [facility] [place] [address]/02/2025Doug HoyLow back pain at multiple sites M54.50[place] [address] [place] [address]/12/2024Doug HoyLow back pain at multiple sites M54.50[facility] [facility] [place] [address]/02/2025Doug HoyLow back pain at multiple sites M54.50 Assessments Encounter Date Diagnosis (ICD Code) Assessment Notes Treatment Notes Treatment Clinical Notes Section Notes 03/26/2025 Low back pain at multiple sites (ICD-10 - M54.50) 03/26/2025Lumbar radiculopathy (ICD-10 - M54.16)03/26/2025Low back pain at multiple sites (ICD-10 - M54.50)03/26/2025Lumbar radiculopathy (ICD-10 - M54.16) 04/24/2025Low back pain at multiple sites (ICD-10 - M54.50)05/23/2025Low back pain at multiple sites (ICD-10 - M54.50)06/24/2025Low back pain at multiple sites (ICD-10 - M54.50) Plan Of Treatment No Information Insurance Providers Payer Name Payer Address Payer Phone Subscriber Number Group Number Insured Name Patient Relationship to Insured Coverage Start Date Coverage End Date [employer] [place] [employer] [address] [place] [id number] Patty Lopez - patient is the [id number] 2022 Medical (General) History Surgical History Surgery Date(Month/Year) Laparoscopic Ovarian Cystomy
--- OUTSIDE RECORDS SUMMARY | 2025-08-08 07:40 | XMS_ITS | Encounter Summary ---
Author Organization [facility] Address [address] [place] [address] Care Team Providers Care Process Tank Tender Name Role Phone Jigar Grace MD Primary Care Provider [phone] Melia Jim NP Unavailable Awilda Tejada RESTAURANT CASHIER Unavailable Melia Jim RESTAURANT CASHIER Unavailable Encounter Details DateTypeDepartmentCare Team (Latest Contact Info)Yshmhkuakbr04/18/2025Clinisync Result Encounter [facility] Unsolicited Curtis Flores, DO [address] [place] [id number] Social History Tobacco UseTypesPacks/DayYears UsedDateSmoking Tobacco: NeverSmokeless [...] relatives?Once a week06/18/2024How often do you attend presybeterian or anabaptism services?Never06/18/2024o you belong to any clubs or organizations such as presybeterian groups, unions, fraternal or athletic bety ups, [...] care, and heating?Hard06/18/2024HQ-2 AnswerDate RecordedPatient Health Questionnaire-2 Zbqqr04811/04/2023Finblue mountain hospital, inc. [place] of Occupational Health - Occupational Stress QuestionnaireAnswerDate [...] were you homeless or living in a custodial (including now)?No06/18/2024CommentsNoSex and Gender Information ValueDate RecordedSex Assigned at BirthNot on fileLegal YgsOhlbvo62/15/2023 7:33 PM EDTGender IdentityNot on fileSexual OrientationNot on filedocumented as of this encounter Plan of Treatment Not on file documented as of this encounter Procedures Procedure NamePriorityDate/TimeAssociated DiagnosisCommentsTBH PREG QUANT HCG Ycmhcdk4608/06/2025 3:08 PM EST documented in this encounter Results * [facility] PREG QUANT HCG (08/06/2025 3:08 PM EST)ComponentValueRef RangeTest Method Analysis TimePerformed AtPathologist SignatureHCG [id number]/mLTBH Comment: 5-50 ? 0.2-1 WEEK 50-500 ? 1-2 [...] Result Performing OrganizationAddressCity/State/ZIP CodePhone Number [facility] documented in this encounter Visit Diagnoses Not on filedocumented in this encounter Care Teams Team MemberRelationshipSpecialtyStart DateEnd Date Jigar Grace MD [address] [place] [address] PCP - [facility]02/23/24 Melia Jim NP [address] [place] [address] PCP - [facility]/ Melia Jim NP [address] [place] [address] Nurse PractitionerFaM[facility] Lakes [facility]02/23/24 Awilda Tejada NP [address] [place] [address] [facility]erJen[facility]02/23/24documented as of this encounter
--- OUTSIDE RECORDS SUMMARY | 2025-08-08 07:48 | XMS_ITS | CCD ---
Author Organization [facility] Care Team Providers Care Chemist Proteins Name Role Phone MD Joe Lombardo Primary Care Provider [phone] MD Donta Stewart Attending Provider MD Severo [...] SONY, DR JOY Coronel Consulting Unavailable Joe Lombardo MD Primary Care Provider [phone] MD Joe Lombardo Primary Care Provider Curtis Flores Attending Provider Warchol, CHANGE OVER-C Melia Primary Care Provider Warchol, CHANGE OVER-C Melia Attending Provider Sanjay GUEVARA, Jigar Triana Primary Care Provider [place] CHANGE OVER, Melia Unavailable Lause CHANGE OVER, Awilda R Unavailable [phone] [place] CHANGE OVER-C, Melia Primary Care Provider [phone] [place] CHANGE OVER-C, Melia Attending Provider [phone] López Coburn MD Emergency Provider [phone] Warchol CHANGE OVER, Melia Unavailable [place] CHANGE OVER-C, Melia Primary Care Provider [phone] López Coburn MD Emergency Provider Stacy PA-C, Melia L Attending Provider [place] CHANGE OVER-C, Melia Attending Provider [place] CHANGE OVER, Melia Unavailable [place] CHANGE OVER-C, Melia Primary Care Provider [phone] López Tomlin MD Attending Provider [place] CHANGE OVER, Melia Unavailable [place] CHANGE OVER, Melia Unavailable Chet GUEVARA, Joe Awan Primary Care Provider Adelaida Minaya APRN Emergency Provider STACY, MELIA Attending Unavailable STACY, MELIA Referring Unavailable STACY, MELIA Attending Unavailable SANDRA, CURTIS Attending Unavailable SANDRA, CURTIS Attending Unavailable WARCHOL, MELIA Attending Unavailable WARCHOL, MELIA Attending Unavailable SANDRA, CURTIS Attending Unavailable SANDRA, CURTIS Attending Unavailable Stacy, Melia L Admitting Unavailable Stacy, Melia L Attending Unavailable Warchol, Melia Primary Care Unavailable Warchol, Melia Admitting Unavailable Warchol, Melia Attending Unavailable Warchol, Melia Primary Care Unavailable Warchol, Melia Admitting Unavailable Warchol, Melia Attending Unavailable Warchol, Melia Primary Care Unavailable Adelaida Minaya Attending Unavailable Adelaida Minaya Admitting Unavailable Joe Lombardo Primary Care Unavailable López Coubrn Jr Admitting Unavailable López Coburn Jr Attending Unavailable Melia Mantilla Primary Care Unavailable Medications Current Medications MedicationDrug Class(es)DatesSig (Normalized)Sig (Original)amoxicillin 500 mg oral capsule (13 sources)Penicillin-class AntibacterialStart: 86-34-3492nznp 1 capsule by mouth every eight hoursamoxicillin (Amoxil) 500 MG capsule TAKE 1 CAPSULE BY MOUTH EVERY 8 HOURS UNTIL GONE 12/18/2024 Activeethinyl estradiol 0.035 mg / norgestimate 0.25 mg oral tablet (18 sources)Progestin, EstrogenStart: 11-21-2024 End: 78-55-1322yghh 1 tablet by mouth once daily, then take 1 tablet by mouth once dailynorgestimate-ethinyl estradiol (Sprintec 28) 0.25-35 MG-MCG tablet Indications: Encounter for initial prescription of contraceptive pills Take 1 tablet by mouth Daily Take 1 tablet by mouth daily 28 tablet 11 11/21/2024 10/23/2025 Activegabapentin 600 mg oral tablet (20 sources)Anti-epileptic AgentStart: 11-22-2024 End: 98-72-8752nllg 1 tablet by mouth in the morning, then take 1 tablet by mouth in the evening, then take 1 tablet by mouth at bedtimegabapentin (Neurontin) 600 MG tablet Indications: Bilateral sacroiliitis , 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 90 tablet 2 11/22/2024 ActiveStart: 52-32-1789ijvp 3 capsules by mouth three times dailyGabapentin 100 mg capsule Active 300 MG PO Three times daily October 17, 2024 1:00am Non-compliance of drug therapyStart: 08-28-2024 End: 79-50-0142jekv 1 capsule by mouth in the morning, then take 1 capsule by mouth in the evening, then take 1 capsule by mouth at bedtimegabapentin (Neurontin) 300 MG capsule Indications: Bilateral sacroiliitis (CMS/HCC) , Chronic midline low back pain with bilateral sciatica Take 1 capsule (300 mg) by mouth in the morning and 1 capsule (300 mg) in the evening and 1 capsule (300 mg) before bedtime. 90 capsule 2 09/24/2024 11/22/2024Discontinued (Ineffective) Start: 07-27-2024 End: 02-50-9494bxzl 1 capsule by mouth in the morning, then take 1 capsule by mouth in the evening, then take 1 capsule by mouth at bedtimegabapentin (Neurontin) 100 MG capsule Indications: Bilateral sacroiliitis (CMS/HCC) , Chronic midline low back pain with bilateral sciatica Take 1 capsule (100 mg) by mouth in the morning and 1 capsule (100 mg) in the evening and 1 capsule (100 mg) before bedtime. 90 capsule 07/27/2024 08/28/2024 Discontinued (Reorder) ondansetron 4 mg disintegrating oral tablet (20 sources)Serotonin-3 Receptor AntagonistStart: 06-24-2025 End: 76-87-9686rhiq 1 tablet by mouth every six hours as needed for nausea and vomiting and nausea and nauseaondansetron ODT (Zofran-ODT) 4 MG disintegrating tablet Indications: Nausea Take 1 tablet (4 mg) bymouth every 6 (six) hours if needed for nausea or vomiting 30 tablet 07/03/2025 08/02/2025 ActiveStart: 01-03-2025 End: 78-65-6580opxh 1 tablet by mouth every six hours as needed for nausea and vomiting and nausea and nauseaondansetron ODT (Zofran-ODT) 4 MG disintegrating tablet Indications: Nausea Take 1 tablet (4 mg) bymouth every 6 (six) hours if needed for nausea or vomiting 30 tablet 2 01/03/2025 02/02/2025 ActiveStart: 11-21-2024 End: 74-75-1286yecz 1 tablet by mouth every six hours as needed for nausea and vomiting and nausea and nauseaondansetron ODT (Zofran-ODT) 4 MG disintegrating tablet Indications: Nausea Take 1 tablet (4 mg) bymouth every 6 (six) hours if needed for nausea or vomiting 30 tablet 2 11/21/2024 12/21/2024 ExpiredStart: 10-17-2024 End: 24-19-1499krty 1 tablet by mouth every eight hours as needed for nausea and vomitingOndansetron 4 mg tablet,disintegrating Discontinued 4 MG PO Q8H as needed for nausea and vomiting 10 October 17, 2024 1:00am October 29, 2024 10:00ampredniSONE 20 mg oral tablet (5 sources)Start: 06-18-2024 End: 78-14-3686wggpvuVKDP (Deltasone) 20 MG tablet Indications: Left lumbar radiculopathy , Chronic left-sided lowback pain with left-sided sciatica Take two tablets (40 mg) daily for five days, then take one tablet (20 mg) daily for five days. Take with food. 15 tablet 06/18/2024 07/27/2024 Discontinued (Therapy completed) Completed/Discontinued Medications MedicationDrug Class(es)DatesSig (Normalized)Sig (Original)acetaminophen 325 mg / HYDROcodone bitartrate 5 mg oral tablet (3 sources)Opioid AgonistStart: 11-04-2023 End: 27-26-2176KWBNFwtnvup-acetaminophen ([place]) 5-325 MG tablet 11/04/2023 06/18/2024 Discontinued (Therapy completed)diclofenac sodium 75 mg delayed release oral tablet (8 sources)Nonsteroidal Anti-inflammatory DrugStart: 10-29-2024 End: 32-37-4278shmw 1 tablet by mouth twice dailyDiclofenac Sodium 75 mg tablet,delayed release (DR/EC) Discontinued 75 MG PO Twice daily 60 30 2 Oct 1:00am July 05, 2025 10:00amStart: 12-16-2022 End: 21-81-5889afxy 1 tablet by mouth in the morningdiclofenac (Voltaren) 75 MG EC tablet Take 75 mg by mouth in the morning and 75 mg before bedtime. 0 12/16/2022 06/18/2024 Discontinued (Therapy completed)dicyclomine hydrochloride 10 mg oral capsule (5 sources)AnticholinergicStart: 10-17-2024 End: 18-29-9603haej 1 capsule by mouth three times daily as neededDicyclomine 10 mg capsule Discontinued 10 MG PO Three times daily as needed for abdominal discomfort October 17, 2024 1:00am October 29, 2024 10:00amibuprofen 800 mg oral tablet (4 sources)Nonsteroidal Anti-inflammatory DrugStart: 11-12-2022 End: 52-64-1121xpbq 1 tablet by mouth every eight hours as neededibuprofen 800 MG tablet TAKE 1 TABLET BY MOUTH EVERY 8 HOURS NEEDED WITH FOOD 11/12/2022 06/18/2024 Discontinued (Therapy completed)pantoprazole 20 mg delayed release oral tablet (9 sources)Proton Pump InhibitorStart: 02-07-2022 End: 85-00-6358oxjq 1 tablet by mouth once dailyPantoprazole (Protonix) 20 mg Tablet,Delayed Release (Dr/Ec) Discontinued 20 MG PO Daily February 07, 2022 12:00am October 17, 2024 8:52pmpromethazine hydrochloride 25 mg oral tablet (9 sources)PhenothiazineStart: 02-07-2022 End: 88-72-7976gbqr 1 tablet by mouth every six hours as needed for nausea Promethazine 25 mg Tablet Discontinued 25 MG PO Q6H as needed for Nausea February 07, 2022 12:00am October 17, 2024 8:52pmtiZANidine 4 mg oral tablet (2 sources)Central alpha-2 Adrenergic AgonistStart: 04-10-2025 End: 21-35-8567Kpdkzaylku 4 mg tablet Discontinued MG PO April 10, 2025 12:00am July 05, 2025 10:00amtriamcinolone acetonide 1 mg/ml topical cream (4 sources)CorticosteroidStart: 12-16-2022 End: 78-31-1637rooypmpjvzjtr (Kenalog) 0.1 % cream APPLY SMALL AMOUNT TO SKIN TWICE A DAY 12/16/2022 06/18/2024 Discontinued (Therapy completed) Problems Active Problems Problem ClassificationProblemDateDocumented DateEpisodic/ChronicAbdominal pain (20 sources)Abdominal pain; Translations: [Unspecified abdominal pain]Onset: 426533-13-0608MuwrdlsnApwtdqg on above:Problem List clean-up per request of Phys. EHR CmteEndometriosis (1 source)Endometriosis; Translations: [ENDOMETRIOSIS BILAT OVARY UNS DEPTH] Onset: 26-17-7250Tffechwfa and duodenitis (9 sources)Gastritis; Translations: [Gastritis, unspecified, without bleeding] 71-51-0103RwusitmvVgkdvzi on above:Problem List clean-up per request of Phys. EHR CmteHemorrhage during ; abruptio placenta; placenta previa (1 source)Hemorrhage in early , unspecified; Translations: [Hemorrhage in early , unspecified]Onset: 88-65-0388TugylnrrYihxmhvxe disorders (1 source)Irregular menstruation, unspecified; Translations: [IRREGULAR MENSTRUATION UNSPECIFIED]Onset: 65-60-8586FmdbllbTthfr aftercare (2 sources)Surgical follow-up; Translations: [Encounter for follow-up examination after completed treatment for conditions other than malignant neoplasm]65-54-5468TobfgjgxKqubi aftercare (2 sources)H/O: miscarriage; Translations: [Encounter for other specified aftercare]55-38-0410NjdwbtgaQjqnb and unspecified benign neoplasm (4 sources)Benign neoplasm of left ovary; Translations: [BENIGN NEOPLASM OF LEFT OVARY]Onset: 98-74-8436UaatdhojNitmt and unspecified benign neoplasm (2 sources)Benign neoplasm, unspecified site; Translations: [Benign neoplasm of unspecified site]45-62-2382RxbogkyyGbomd connective tissue disease (2 sources)Cramp; Translations: [Cramp and spasm]72-64-6572LldiazssTgvgg endocrine disorders (5 sources)Polycystic ovarian syndrome; Translations: [POLYCYSTIC OVARIAN SYNDROME]Onset: 44-46-2569ThdrgvlAwyux female genital disorders (1 source)Noninflammatory disorder of ovary, fallopian tube and broad ligament, unspecified; Translations: [OTH NONINFL D/O OVARY TUBE AND BRD LIG]Onset: 96-69-7812FfgwlrtuLiyqt female genital disorders (2 sources)History of gynecological disorder; Translations: [Personal history of other diseases of the female genital tract]94-47-5243UjynckiaMavnz nervous system disorders (6 sources)Chronic pain; Translations: [Other chronic pain]91-62-4424Kjnhdew Other nervous system disorders (3 sources)Other chronic pain; Translations: [Other chronic pain]Onset: 068712-13-7446HmrtowuOxump and delivery including normal (2 sources)Urine test positive; Translations: [Encounter for test, result positive]58-52-5850SqjcgwkaCrdffgunpwl; intervertebral disc disorders; other back problems (20 sources)Bilateral inflammation of sacroiliac joint; Translations: [Sacroiliitis, not elsewhere classified]Onset: hronic Spontaneous (4 sources)Miscarriage; Translations: [Complete or unspecified spontaneous without complication]Onset: 436331-96-5912NdmjwzvuOqaokkpukkvy (2 sources)Finding of sensation of ssekthe20-28-9874 Past or Other Problems Problem ClassificationProblemDateDocumented DateEpisodic/Chronic Administrative/social admission (20 sources)Patient encounter status; Translations: [Other specified counseling] Onset: 531119-10-4680GaotxhekAhkunf and vomiting (8 sources)Nausea, vomiting and diarrhea; Translations: [Nausea with vomiting, unspecified]Onset: 578539-61-2089BrwpjavgSwqyi screening for suspected conditions (not mental disorders or infectious disease) (4 sources)Encounter for screening for malignant neoplasm of cervix; Translations: [ENC SCREENING MALIG NEOPLASM CERV]Onset: 45-54-5201Hjxbrpav Ovarian cyst (9 sources)Cyst of left ovary; Translations: [Unspecified ovarian cyst, left side]Onset: 762737-47-0708RgznopdeJbinrnfwuda; intervertebral disc disorders; other back problems (20 sources)Chronic low back pain; Translations: [Lumbago with sciatica, right side]Onset: 759368-56-4693Mklanuqr Results Test NameValueInterpretationReference RangeFacilityAlanine aminotransferase [Enzymatic activity/volume] in Serum or PlasmaOrdered By: Adelaida Minaya on 07-33-5079CFH [Catalytic activity/Vol]11 U/LNormal7-52[facility] DublinComment on above:Performed By: #### CBC, CMP, HCGQNT ####[facility] Wtw[address] Farida Watts, [id number] USAAlbumin [Mass/volume] in Serum or Plasma by Bromocresol green (BCG) dye binding methoOrdered By: Adelaida Minaya on 41-68-0920Weqdokk BCG dye [Mass/Vol]4.5 g/dL3.5-5.7FUniversity Hospitals Geneva Medical CenterAlkaline phosphatase [Enzymatic activity/volume] in Serum or PlasmaOrdered By: Adelaida Minaya on 28-78-4118BNL [Catalytic activity/Vol]40 U/L Bjhnxq07-281DmdkansbuSelect Medical Ohiohealth Rehabilitation Hospital - DublinComment on above:Performed By: #### CBC, CMP, HCGQNT ####[address] [address] USAAspartate aminotransferase [Enzymatic activity/volume] in Serum or PlasmaOrdered By: Adelaida Minaya on 40-21-5956KJQ [Catalytic activity/Vol]12 U/LLow 13-39[facility] - DublinComment on above:Performed By: #### CBC, CMP, HCGQNT ####[address] USABasophils [#/volume] in Blood by Automated countOrdered By: Adelaida Minaya on 73-13-9720Ucmeusrtn (Bld) [#/Vol]0.0 10*3/uLNormal0.0-0.2FUniversity Hospitals Geneva Medical CenterComment on above:Result Comment: PERFORMED BY: [facility] [address] [place] [address] PATHOLOGIST SOUND EFFECTS SUPERVISOR DEVAN CLARK M.D.Performed By: #### CBC, CMP, HCGQNT ####[address] USABasophils/100 leukocytes in Blood by Automated countOrdered By: Adelaida Minaya on 56-70-6616Skifdkxng/100 WBC (Bld)0.1 %Normal.[facility] - DublinComment on above:Performed By: #### CBC, CMP, HCGQNT ####[address] USABilirubin.total [Mass/volume] in Serum or Plasma Ordered By: Adelaida Minaya on 70-96-7109Wodwqczcd [Mass/Vol]0.5 mg/dLNormal0.3-1.0 [facility] - DublinComment on above:Performed By: #### CBC, CMP, HCGQNT ####[place] [address] [facility], [place] [place] Calcium [Mass/volume] in Serum or PlasmaOrdered By: Adelaida Minaya on 07-05-2025 Calcium [Mass/Vol]9.3 mg/dLNormal8.6-10.3FUniversity Hospitals Geneva Medical Center Comment on above:Performed By: #### CBC, CMP, HCGQNT ####[address] [place], [place] USACarbon dioxide, total [Moles/volume] in Serum or PlasmaOrdered By: Adelaida Minaya on 19-35-3630IB9 [Moles/Vol]28.0 mmol/OTbzkip88.0-31.0[facility] - DublinComment on above:Performed By: #### CBC, CMP, HCGQNT ####[address] [place] [place], [place] USAChlamydia and GC PCR FRon 07-05-2025 Chlamydia and GC PCR FRReference Range for all Targets: Not Detected Testing performed by real-time PCR. Chlamydia trachomatis DNA [Presence] in Specimen by RON with probe detection Chlamydia trachomatis - Not Detected Neisseria gonorrhoeae DNA [Presence] in Specimen by RON with probe detection Neisseria gonorrhoeae - Not Detected PERFORMED BY: [facility] [address] [place] [address] PATHOLOGIST SOUND EFFECTS SUPERVISOR DEVAN CLARK M.D.[facility] Physician GroupComment on above: Performed By: #### CHLAM - GC PCR ####[address] [address] USAChloride [Moles/volume] in Serum or PlasmaOrdered By: Adealida Minaya on 80-99-1679Vkjdpzdx [Moles/Vol]106 mmol/LYibsvp29-769RyokvjldbSelect Medical Ohiohealth Rehabilitation Hospital - DublinComment on above:Performed By: #### CBC, CMP, HCGQNT ####[address] [place] [place], [place] [facility] Choriogonadotropin.beta subunit [Units/volume] in Serum or PlasmaOrdered By: Adelaida Minaya on 37-82-6864WHC.beta subunit Mz0518.00 m[IU]/mLSelect Medical Ohiohealth Rehabilitation Hospital - DublinComment on above:Approximate Approximate hCG Gestational Age Range (mIU/ml) (weeks)0.2-1 5-50 1-2 50-500 2-3 100-5,000 3-4 500-10,000 4-5 1,000- 50,000 5-6 10,000-100,000 6-8 15,000-200,000 8-12 10,000-100,000Complete Blood Count Auto Diffon 37-93-7231Jdcu Corpuscular HGB Conc34.6 g/dJMqrkvi34.0-35.0[facility] Physician GroupComment on above:Performed By: #### CBC, CMP, HCGQNT ####[address] [facility] Monocytes/100 WBC (Bld)16.61 %Normal0.00-20.00[facility] Comment on above:Performed By: #### CBC, CMP, HCGQNT ####[address] [id number] [facility] HE[facility] CENTERNRBC%0.1 /100{WBC}Normal0-0.5 [facility] Physician GroupComment on above:Performed By: #### CBC, CMP, HCGQNT ####[address] [id number] [facility] White Blood Count8.6 [CFU]/mLNormal3.8-11.6[facility] Physician GroupComment on above:Performed By: #### CBC, CMP, HCGQNT ####[address] [place] [facility] HE[facility] CENTERComprehensive Metabolic Panelon 88-32-9451Rsxdysa [Mass/Vol]4.5 g/dLNormal3.5-5.7[facility] Comment on above:Performed By: #### CBC, CMP, HCGQNT ####[address] [place] [place], [place] USACreatinine Clr Calc Pharmacy 98.52NoNovant Health [facility] Physician GroupComment on above:Performed By: #### CBC, CMP, HCGQNT ####[address] [place] [address] USAGFR/1.73 sq M.predicted MDRD (S/P/Bld) [Vol rate/Area]mL/min/{1.73_m2} NormalThe [facility] Physician GroupComment on above:Performed By: #### CBC, CMP, HCGQNT ####[address] [place] Creatinine [Mass/volume] in Serum or PlasmaOrdered By: Adelaida Marimar on 07-05-2025 Creatinine [Mass/Vol]0.78 mg/dLNormal0.60-1.20[facility] Comment on above:Performed By: #### CBC, CMP, HCGQNT ####[address] USAEosinophils [#/volume] in Blood by Automated countOrdered By: Adelaida Marimar on 35-95-7408Kspevvpxvax (Bld) [#/Vol]0.1 10*3/uLNormal0.0-0.45[facility] - DublinComment on above:Performed By: #### CBC, CMP, HCGQNT ####[address] USAEosinophils/100 leukocytes in Blood by Automated countOrdered By: Adelaida Marimar on 89-67-9160Afgsuvwnwsy/100 WBC (Bld)1.5 %Normal.[facility] - DublinComment on above:Performed By: #### CBC, CMP, HCGQNT ####[address] [address] USAErythrocyte distribution width [Ratio] by Automated countOrdered By: Adelaida Marimar on 45-93-1333Kjnapbgqldr distribution width (RBC) [Ratio]14.5 % Brweuh40.9-15.3FUniversity Hospitals Geneva Medical CenterComment on above:Performed By: #### CBC, CMP, HCGQNT ####[address] [place] [place], [place] USAErythrocytes [#/volume] in Blood by Automated count Ordered By: Adelaida Minaya on 54-96-9865WNQ (Bld) [#/Vol]4.98 10*6/uLNormal 3.60-5.00[facility] - DublinComment on above:Performed By: #### CBC, CMP, HCGQNT ####[address] [address] USAFungal Smearon 24-79-5628Vzzbap SmearFungus Smear Results No Yeast Like Elements Seen No Fungal Like Elements Seen Trichomonas Screen No Trichomonas Seen Trich Reference Reference range = None Seen PERFORMED BY: [facility] [address] [place] [address] PATHOLOGIST SOUND EFFECTS SUPERVISOR DEVAN CLARK M.D.[facility] Physician GroupComment on above: Performed By: #### FS, CUGEN ####[address] [address] USAFungal smearOrdered By: Adelaida Minaya on 07-05-2025 Fungus identified Fungus stain Nom (Unsp spec)[facility] Genital Cultureon 72-84-8493Cpkquyy CultureGenital Results Moderate Normal Urogenital Dariela 2 Days No More GC Specimen not tested for Neisseria gonorrheae PERFORMED BY: [facility] [address] [place] [id number] PATHOLOGIST SOUND EFFECTS SUPERVISOR DEVAN CLARK M.D.[facility] Physician GroupComment on above: Performed By: #### FS, CUGEN ####[address] [address] USAGlomerular filtration rate [Volume Rate/Area] in Serum, Plasma or Blood by CreatinineOrdered By: Adelaida Minaya on 07-05-2025 Glomerular filtration rate [Volume Rate/Area] in Serum, Plasma or Blood by Creatinine> 60.0 mL/MinSelect Medical Ohiohealth Rehabilitation Hospital - DublinGlucose [Mass/volume] in Serum or PlasmaOrdered By: Adelaida Minaya on 66-30-7381Dwxhqwc [Mass/Vol]94 mg/dL Kbeuxu98-482PxgereatmSelect Medical Ohiohealth Rehabilitation Hospital - DublinComment on above:ADA recommended reference rangeRandom Glucose Reference Range is dependent on time and content of last meal. Glucose of more than 200 mg/dL in a nonstressed, ambulatory subject supports the diagnosisof Diabetes Mellitus.Result Comment: Random Glucose Reference Range is dependent on time and content of last meal. Glucose of more than 200 mg/dL in a nonstressed, ambulatory subject supports the diagnosis of Diabetes Mellitus. ADA recommended reference rangePerformed By: #### CBC, CMP, HCGQNT ####[facility] [place], [place] USAHCG,Quantitativeon 95-39-0273HUM,Tgtzpkrkrtsm6375.00 m[iU]/mLNormalThe [facility] Comment on above:Result Comment: Approximate Approximate hCG Gestational Age Range (mIU/ml) (weeks) 0.2-1 5-50 1-2 50-500 2-3 100-5,000 3-4 500-10,000 4-5 1,000-50,000 5-6 10,000-100,000 6-8 15,000-200,000 8-12 10,000-100,000 PERFORMED BY: [facility] [address] [place] [address] PATHOLOGIST SOUND EFFECTS SUPERVISOR DEVAN CLARK M.D.Performed By: #### CBC, CMP, HCGQNT ####[facility] [place], [place] USAHematocrit [Volume Fraction] of Blood by Automated countOrdered By: Adelaida Minaya on 94-49-7150Fmsntuzixj (Bld) [Volume fraction]42.4 %Liumsf97.0-46.4FUniversity Hospitals Geneva Medical CenterComment on above:Performed By: #### CBC, CMP, HCGQNT ####[facility] [address] [facility] Centerabdiel, [place] USAHemoglobin [Mass/volume] in Blood Ordered By: Adelaida Minaya on 01-06-6682Eyaimzlkie (Bld) [Mass/Vol]14.6 g/dLNormal 11.8-15.4FUniversity Hospitals Geneva Medical CenterComment on above:Performed By: #### CBC, CMP, HCGQNT ####[facility] [address] [place] [address] USALon 07-05-2025L Specimen: [id number] Received: 07/05/25 Status: LEEANNE Kristin Num: [id number] Spec Type: Surgical Subm Dr: Adelaida Minaya APRN Tissues: A Products of Conception - Spontaneous or Missed (POSSIBLE POC) Procedures: BLANCA, Gross/Micro L4 Age/ Patient Sex Location Account Attending Physician Berenice Lopez [id number] Adelaida Minaya, TERMINAL CARMAN SPEC NUM: [id number] RECD: 07/05/25 STATUS: LEEANNE SINGLETON NUM: [id number] MARY: 07/05/[address] [facility] [address]: Adelaida Minaya, TERMINAL CARMAN ENTERED: 07/05/[address] [facility] [address]: Curtis MOTTA TYPE: Surgical DEPT: S ENTERED BY: [id number] RECV BY: [id number] ORDERED: HE/4, Gross/Micro L4 ORDERED: HE/4, Gross/Micro L4 Pathological Diagnosis Products of conception, removal: Chorionic villi, consistent with products of conception Clinical Information Last menstrual period 05/07/2025 Brown discharge x 2 days, low abdominal cramping, bright red this morning, possible products of conception, blood with passage of clot and white tissue at home Gross Description Part A is received fresh and fixed in 10% formalin formalin labeled with the patients date of , and [place]ebard is an ovoid portion of red-brown, clotted, hemorrhagic material, 3.5 x 2 x 1 cm, with an adherent portion of robin-pink glistening decidua, 1.5 x 0.6 x 0.2 cm. Within the clot is a pale brothers, feathery portion of chorionic villi, 1.3 x 1.2 x 0.3 cm. No tissue is identified. The chorionic villi is entirely submitted in A1, the decidua submitted in A2, and the remaining clot submitted in A3?A4. (4, ns, [id number] A) Microscopic Description Microscopic examination performed Specimen: [id number] Received: 07/05/25 Status: LEEANNE Singleton Num: [id number] Spec Type: Surgical Subm Dr: Adelaida Minaya APRN Tissues: A Products of Conception - Spontaneous or Missed (POSSIBLE POC) Procedures: MELOL/Marichuy, Gross/Micro L4 Patient: Berenice Lopez [id number] (Continued) Specimen: [id number] Received: 07/05/25 (Continued) Signed (signature on file) Stacie Cruz DO 07/08/251334 Specimen: [id number] Received: 07/05/25 Status: LEEANNE Singleton Num: [id number] Spec Type: Surgical Subm Dr: Adelaida Minaya APRN Tissues: A Products of Conception - Spontaneous or Missed (POSSIBLE POC) Procedures: MELLOMarichuy, Gross/Micro L4 Patient: Berenice Lopez [id number] (Continued) Specimen: [id number] Received: 07/05/25 (Continued) CPT Codes 17566 Specimen: [id number] Received: 07/05/25 Status: LEEANNE Singleton Num: [id number] Spec Type: Surgical Subm Dr: Adelaida Minaya APRN Tissues: A Products of Conception - Spontaneous or Missed (POSSIBLE POC) Procedures: HE/4, Gross/Micro L4 Patient: Berenice Lopez [id number] (Continued) Signed (signature on file) Stacie Cruz DO 07/08/[address] [place] [address] Physician GroupLeukocytes [#/volume] corrected for nucleated erythrocytes in Blood by Automated counOrdered By: Adelaida Minaya on 12-42-2415SCE corrected for nucl RBC Auto (Bld) [#/Vol]8.6 10*3/uL3.8-11.6 [facility] DublinLeukocytes [#/volume] in Blood by Automated countOrdered By: Adelaida Minaya on 96-49-6822RFF (Bld) [#/Vol]8.6 10*3/uLNormal 3.8-11.6FUniversity Hospitals Geneva Medical CenterComment on above:Performed By: #### CBC, CMP, HCGQNT ####[facility] [address] [place] [address] USALymphocytes [#/volume] in Blood by Automated countOrdered By: Adelaida Minaya on 86-76-0444Xatkdjsmlkv (Bld) [#/Vol]1.6 10*3/uLNormal1.00-4.8[facility] - DublinComment on above:Performed By: #### CBC, CMP, HCGQNT ####[address] [id number] [place] Lymphocytes/100 leukocytes in Blood by Automated countOrdered By: Adelaida Minaya on 27-38-9507Ftrvyepggeg/100 WBC (Bld)18.8 %Normal.[facility] - DublinComment on above:Performed By: #### CBC, CMP, HCGQNT ####[address] [id number] [facility] [Entitic mass] by Automated countOrdered By: Adelaida Minaya on 87-17-9778UMU (RBC) [Entitic mass]29.4 bwZcgxiy31.7-34.3FUniversity Hospitals Geneva Medical CenterComment on above:Performed By: #### CBC, CMP, HCGQNT ####[address] PX[address] [facility] Auto (RBC) [Mass/Vol]Ordered By: Adelaida Minaya on 63-26-3603CWCG (RBC) [Mass/Vol]34.6 g/dL32.0-35.0[facility] - DublinMCV [Entitic volume] by Automated countOrdered By: Adelaida Minaya on 72-66-0980XEJ (RBC) [Entitic vol]85.2 rQTzfhoz34-852YftxzotabSelect Medical Ohiohealth Rehabilitation Hospital - DublinComment on above:Performed By: #### CBC, CMP, HCGQNT ####[address] [address] USAMonocyte distribution width [Entitic volume] in Blood by AutomatedOrdered By: Adelaida Minaya on 79-18-2373Uwseysor distribution width Auto (Bld) [Entitic vol]16.61 %0.00-20.00 [facility] - DublinMonocytes [#/volume] in Blood by Automated countOrdered By: Adelaida Munguiab on 06-06-7764Sgcxzpmgk (Bld) [#/Vol]0.7 10*3/uL Normal0.0-0.8[facility] - DublinComment on above:Performed By: #### CBC, CMP, HCGQNT ####[facility] [place], [place] USAMonocytes/100 leukocytes in Blood by Automated count Ordered By: Adelaida Minaya on 96-35-3639Ixtslkmsn/100 WBC (Bld)8.0 %Normal. [facility] - DublinComment on above:Performed By: #### CBC, CMP, HCGQNT ####[address] [facility] Neutrophils [#/volume] in Blood by Automated countOrdered By: Adelaidaayzan Minaya on 24-14-0134Hiuldnbsrwq (Bld) [#/Vol]6.2 10*3/uLNormal1.8-7.7FUniversity Hospitals Geneva Medical CenterComment on above:Performed By: #### CBC, CMP, HCGQNT ####[address] USANeutrophils/100 leukocytes in Blood by Automated countOrdered By: Adelaida Minaya on 07-05-2025 Neutrophils/100 WBC (Bld)71.6 %Normal.[facility] - DublinComment on above:Performed By: #### CBC, CMP, HCGQNT ####[address] USANo Panel InformationOrdered By: Adelaida Minaya on 05-32-4344Dwtrnjdl Creatinine Clearance (Chem98.52[facility] - DublinNucleated erythrocytes [Presence] in Blood by Automated count Ordered By: Adelaida Minaya on 25-95-9895Avyfktjxy RBC Auto Ql (Bld)0.1 /100{WBC} 0-0.5FUniversity Hospitals Geneva Medical CenterPlatelet mean volume [Entitic volume] in Blood by Automated countOrdered By: Adelaida Minaya on 76-64-7255Ltshctev mean volume (Bld) [Entitic vol]8.2 fLNormal6.3-10.7FUniversity Hospitals Geneva Medical Center Comment on above:Performed By: #### CBC, CMP, HCGQNT ####[address] USAPlatelets [#/volume] in Blood by Automated countOrdered By: Adelaida Minaya on 98-53-5800Febdcnjuf (Bld) [#/Vol] 257 10*3/vOCpbnox048-867YqtzczvsmSelect Medical Ohiohealth Rehabilitation Hospital - DublinComment on above: Performed By: #### CBC, CMP, HCGQNT ####[facility] [facility] USAPotassium [Moles/volume] in Serum or PlasmaOrdered By: Adelaida Minaya on 88-28-7176Pokvbqfcg [Moles/Vol]4.0 mmol/LNormal3.5-5.1 [facility] - DublinComment on above:Performed By: #### CBC, CMP, HCGQNT ####[place] [address] [place], [place] [place] Protein [Mass/volume] in Serum or PlasmaOrdered By: Adelaida Minaya on 07-05-2025 Protein [Mass/Vol]6.8 g/dLNormal6.4-8.9[facility] - DublinComment on above:Performed By: #### CBC, CMP, HCGQNT ####[place] [address] [facility], AI[address] USARFX RhoGAM Vials Indicatedon 07-05-2025 RFX RhoGAM Vials Indicated1 DoseNoNovant Health Forsyth Medical Center Physician Scott Regional HospitalComment on above:Result Comment: 1 vial of RhoGAM is equivalent to 300 mcg. 1 vial will suppress alloimmunization by 15 mL of red cells or 30 mL of whole blood.RHOGAM DOSEon 03-98-1970JWKGPH DOSE NonroutAdventHealth Wesley Chapel Physician GroupComment on above:Result Comment: PERFORMED BY: [facility] [address] [place] [address] PATHOLOGIST SOUND EFFECTS SUPERVISOR DEVAN CLARK M.D.Rhogam Workupon 93-27-8455Pfbdvv CandidateLower Keys Medical Center Physician Scott Regional HospitalComment on above:Result Comment: This result is part of the RhoGAM Workup Order. This order, and result, initiates the Outpatient RhoGAM Protocol ID#: OB.717.15ABO and Rh group Nom (Bld)Blood group AB Rh(D) negative NormalThe [facility] Physician GroupSerum globulin measurement by calculation (mass/volume)Ordered By: Adelaida Minaya on 43-53-0763Xdgtazpg (S) [Mass/Vol]2.3 g/dLNormalSelect Medical Ohiohealth Rehabilitation Hospital - DublinComment on above:Performed By: #### CBC, CMP, HCGQNT ####[address] [address] USASerum or plasma albumin/globulin mass ratioOrdered By: Adelaida Minaya on 10-82-4272Zvqkpca/Globulin [Mass ratio]2.0 {ratio}NormalSelect Medical Ohiohealth Rehabilitation Hospital - DublinComment on above:Performed By: #### CBC, CMP, HCGQNT ####[address] USASerum or plasma anion gap determinationOrdered By: Adelaida Minaya on 08-79-0529Ylfok gap [Moles/Vol]9.0 mmol/LNormal6.0-15.0[facility] - DublinComment on above:Performed By: #### CBC, CMP, HCGQNT ####[address] USASodium [Moles/volume] in Serum or PlasmaOrdered By: Adelaida Minaya on 15-80-5122Ggeodf [Moles/Vol]139 mmol/JVxtzuy334-519HxqxifwbcSelect Medical Ohiohealth Rehabilitation Hospital - DublinComment on above:Performed By: #### CBC, CMP, HCGQNT ####[address] [facility] Trichomonas vaginalis detection by wet preparationOrdered By: Adelaida Minaya on 07-05-2025T. vaginalis Wet prep Ql (Unsp spec)[facility] US OB <= 14 weeks fetuson 55-83-2165QQ OB <= 14 weeks fetusAK[facility] [place] [address] [place] [address] Ultrasound Report Signed Patient: Berenice Lopez MR#: [id number] 2 : 2005 Acct:[id number] Age/Sex: 19 / F ADM Date: 07/05/25 Loc: ER Room: Type: [facility] ER Attending Dr: Ordering Provider: Adelaida Minaya APRN Date of Service: 07/05/25 US/US OB <= 14 weeks fetus: OB/Uterine Contractions ([id number]) US/US OB transvaginal: . Copies to: Adelaida Minaya APRN OB ultrasound. Reason for exam:8 weeks . Passing clots this morning. Abdominal cramping. Comparison:None Technique: Transabdominal and transvaginal imaging of the uterus and ovaries were obtained. Findings: No intrauterine is seen. The endometrium appears thickened measuring 17 mm and heterogenous in echotexture possibly relating to retained parts of conception. No measurable fibroid. No free fluid. Right ovary measures 4.7 x 1.9 x 2.8 cm. Left ovary measures 4.4 x 2.9 x 2.6 cm. No adnexal mass or cyst. Normal arterial and venous Doppler waveforms. US/US OB transvaginal Impression: No intrauterine is seen. The endometrium appears thickened measuring 17 mm in heterogenous in echotexture possibly related to retained parts of conception given the history. Correlation with beta-hCG trend is suggested. Impression dictated by: Sea Shepard Jr., DShayyOShayy 07/05/2025 12:04 PM Dictation Location: [place] [address] Tech: Tianna Moreira Transcribed By: [facility] 07/05/25 1204 Dictated By: Sea Shepard Jr, DO 07/05/25 1202 Signed By: 07/05/25 1204[facility] Physician GroupUrea nitrogen [Mass/volume] in Serum or PlasmaOrdered By: Adelaida Minaya on 77-33-8621Rxbw nitrogen [Mass/Vol]9 mg/dLNoformerly [facility], [facility]04-12[facility] - DublinComment on above:Performed By: #### CBC, CMP, HCGQNT ####[facility] [address] [place], [place] USATBH PREG QUANT HCGon 45-27-7131ZSD LESWNVVXVGHG5537 mIU/mLNOMS HealthcareComment on above:5-50 0.2-1 WEEK 50-500 1-2 WEEKS 100-5,000 2-3 WEEKS 500-10,000 3-4 WEEKS 1,000-50,000 4-5 WEEKS 10,000-100,000 5-6 WEEKS 15,000-200,000 6-8 WEEKS 10,000-100,000 2-3 MONTHS [facility] HospitalTB[facility] PREG QUANT HCGon 51-63-4554PKQ FWFHDJYASXRM6297 mIU/mLNOMS HealthcareComment on above:5-50 0.2-1 WEEK 50-500 1-2 WEEKS 100-5,000 2-3 WEEKS 500-10,000 3-4 WEEKS 1,000-50,000 4-5 WEEKS 10,000-100,000 5-6 WEEKS 15,000-200,000 6-8 WEEKS 10,000-100,000 2-3 MONTHS [facility] HospitalUS PELVIC COMPLETE W/ TVon 12-68-3196SM PELVIC COMPLETE W/ TVEXAM: US PELVIC COMPLETE W/ TV HISTORY: Follow up post laparoscopic cyst removal December 2024, PCOS. COMPARISON: Pelvic ultrasound 11/06/2024. TECHNIQUE: Two-dimensional transabdominal grayscale ultrasound imaging of the pelvis was performed.Color flow Doppler imaging of the ovaries was [...] II, MD, PHD at 05-Feb-2025 11:00:07 PM [facility] TeleradiologyNormalNot AvailableComment on above:Order Comment: US PELVIS-TRANSVAG IF INDICATED No LMP recorded.HCG QUALITATIVE*on 18-60-8606JCW , QUALNegativeNEGATIVE NOMS HealthcareCLINISYNCNOMS HealthcareALL CBC WITH AUTO DIFFon 12-27-2024 BASOPHILS ABSOLUTE LDYW0LKVK HealthcareBasophils/100 WBC (Bld)0.5 %0.2 - 2.0 % NOMS HealthcareEosinophils/100 WBC (Bld)1.3 %0.9 - 7.0 %NOMMissouri Rehabilitation Center Erythrocyte distribution width (RBC) [Ratio]13.4 %11.0 - 15.0 %[facility] Hematocrit (Bld) [Volume fraction]38.5 %36.0 - 48.0 %[facility] SystemHemoglobin (Bld) [Mass/Vol]12.7 g/dL12.0 - 16.0 g/dLLake Regional Health SystemIMMATURE GRANULOCYTES ABS AUTO0.01NOMS [facility] HospitalImmature granulocytes/100 WBC (Bld)0.2 %0.0 - 0.5 % [facility] SystemLYMPHOCYTES ABSOLUTE AUTO1.8NOMS [facility] HospitalLymphocytes/100 WBC (Bld)29.5 %20.5 - 60.0 %Cox NorthH (RBC) [Entitic mass]28.6 pg26.7 - 34.0 pgNOMadison Medical CenterHC (RBC) [Mass/Vol]33 g/dL29.9 - 35.2 g/dLCox NorthV (RBC) [Entitic vol]86.7 fL81.0 - 99.0 fLLake Regional Health SystemMONOCYTES ABSOLUTE AUTO0.4NOMS HealthcareMonocytes/100 WBC (Bld)6.7 %1.7 - 12.0 %NOMS HealthcareNEUTROPHILS ABSOLUTE AUTO3.8NOMS HealthcareNeutrophils/100 WBC (Bld) 61.8 %43.0 - 75.0 %NOMMissouri Rehabilitation CenterPlatelet mean volume (Bld) [Entitic vol]10 fL 9.5 - 13.5 fLNOEllis Fischel Cancer Center EO #0.1NSSM [facility] WNK043QALVSaint Luke's Hospital RBC4.44NOEllis Fischel Cancer Center WBC6.1NJEFFERSON COUNTY HOSPITAL – WAURIKA HealthcareCLINISYNCNJEFFERSON COUNTY HOSPITAL [facility] WAURIKA HealthcareALL LDHon 52-08-6285ZXL [Catalytic activity/Vol]130 U/L81 - 234 U/LNOMS Healthcare CLINISYNCNOWI HealthcareUS PELVIS W/ TRANSVAGINALon 01-34-7886[place]px[place] [address] Ultrasound Report Signed Patient: BERENICE LOPEZ MR#: [id number] : 2005 Acct:[id number] Age/Sex: 19 / F ADM Date: 12/18/24 Loc: US Attending Dr: Melia Kumar Ordering Physician: Melia Kumar Date of Service: 12/18/24 Procedure(s): US pelvis w/ transvaginal Accession Number(s): [id number] cc: Melia Kumar; Joe Lombardo M.D. [place] [id number] Patient Name: BERENICE LOPEZ MRN: [id number] date: 2005 Sex: F Assigned Patient Location: US Current Patient Location: US Accession/Order Number: [id number] Exam Date: 12/18/2024 09:05 Report Date: 12/18/2024 09:16 At the request of: MELIA KUMAR Procedure: US pelvis w/ transvaginal ULTRASOUND PELVIS [...] Mary Gordillo M.D.12/18/2024 9:16 AM Dictation Location: [place] [address] Electronically authenticated by: [id number] Y Date: 12/18/2024 09:16 Dictated By: Mary Gordillo M.D. Signed By: 12/18/24918 DD/ 5 TD/TT: Manager Of Business:TBHRadiology, Radiologist, - 12/18/2024 [address] [place] [id number] Ultrasound Report Signed Patient: BERENICE LOPEZ MR#: [id number] : 2005 Acct:[id number] Age/Sex: 19 / F ADM Date: 12/18/24 Loc: US Attending Dr: Melia Kumar Ordering Physician: Melia Kumar Date of Service: 12/18/24 Procedure(s): US pelvis w/ transvaginal Accession Number(s): [id number] cc: Melia Kumar; Joe Lombardo M.D. The [address] [address] Patient Name: BERENICE LOPEZ MRN: [id number] date: 2005 Sex: F Assigned Patient Location: US Current Patient Location: Accession/Order Number: [id number] Exam Date: 12/18/2024 09:05 Report Date: 12/18/2024 09:16 At the request of: MELIA KUMAR Procedure: US pelvis w/ transvaginal ULTRASOUND PELVIS [...] Mary Gordillo M.D.12/18/2024 9:16 AM Dictation Location: [place] [address] Electronically authenticated by: [id number] Y Date: 12/18/2024 09:16 Dictated By: Mary Gordillo M.D. Signed By: 12/18/24918 DD/ 5 TD/TT: Manager Of Business: [place] HealthcareRadiology Study observation (narrative)[place] HealthcareUS PELVIS W/ TRANSVAGINALOrdered By: Radiologist Radiology on 64-26-1601XKLP [employer] Work Phone: MR lumbar spine wo conon 20-62-5094VD lumbar spine wo [facility] [place] [address] MRI Report Signed Patient: Berenice Lopez MR#: [id number] 2 : 2005 Acct:[id number] Age/Sex: 19 / F ADM Date: 12/12/24 [facility] Attending Dr: Melia Mantilla CHANGE OVER-C Copies to: Melia Mantilla CNP Ordering Provider: [...] foraminal narrowing. L4-5: Circumferential disc bulge with wlfg-dh-hvrhswhe facet arthropathy. Gqvb-io-ihvuwlus left- sided mild right-sided neural foraminal narrowing. [...] Olman Rondon M.D.12/12/2024 11:49 AM Dictation Location: [place] [address] Transcribed By: [facility] 12/12/24 1149 Dictated By: Olman Rondon MD 12/12/24 1135 Signed By: 12/12/24 [facility] Physician GroupMagnetic resonance imaging reportOrdered By: Olman Rondon on 10-69-0431Qqdpa reportAKRON CHILDREN'S [facility] [place] [address] [place] [address] MRI Report Signed Patient: Berenice Lopez MR#: [id number] : 2005 Acct:[id number] Age/Sex: 19 / F ADM Date: 5 Loc: [facility] Room: Type: [facility] Attending Dr: Melia Mantilla CHANGE OVER-C Copies to: Melia Mantilla CNP~ Ordering Provider: Melia Mantilla CNP Date of Service: 12/12/24 MR/MR lumbar spine wo con: low back pain MRI LUMBAR SPINE PERFORMED WITHOUT CONTRAST INDICATION: Left hip pain radiating to upper back, chronic left-sided low back pain with left-sidedsciatica, left lumbar radiculopathy Comparison: Lumbar spine x-rays 07/25/2024: Findings: Lumbar vertebral heights and alignment maintained. There is mild levocurvature of the lumbar spine. Mild multilevel facet arthropathy greatest lower spine. Small Schmorl's node deformities L3-L4. Mild disc space narrowingL5-S1. Severe disc space narrowing T11-T12. The conus medullaris term inates normally at L1-L2. Paraspinal soft tissues are [...] foraminal narrowing. L4-5: Circumferential disc bulge with qqyv-cl-mbsgxqna facet arthropathy. Wynd-dd-emacdtsc left-sided mild right-sided neural foraminal narrowing. Mild [...] to contact the right S1 nerve root.. Itmay contact left S1 nerve root as well. Please correlate with bilateral S1 radiculopathy. Impression dictated by: Olman Rondon M.D.12/12/2024 11:49 AM Dictation Location: [place] [address] Transcribed By: [facility] 12/12/24 1149 Dictated By: Olman Rondon MD 12/12/24 1135 Signed By: 12/12/24 1149 [facility] Work Phone: AFP Tumor Marker, Serumon 14-29-3400PHC Tumor Marker, Serum5.7 ng/mLHigh0.0-4.7The [facility] Physician GroupComment on above:Result Comment: [employer] Electrochemiluminescence Immunoassay (ECLIA) Values obtained with different assay methods or kits cannot be used interchangeably. Results cannot be interpreted as absolute evidence of the presence or absence of malignant disease. This test is not interpretable in females.Performed By: #### CA125, LDI, AFPTM #### [facility] , #### CEA, HCGQNT #### [facility] [address] [place] [address] USACEA ser/plasOrdered By: Melia Mantilla on 11-20-2024 Carcinoembryonic Ag [Mass/Vol]Serum or plasma carcinoembryonic antigen measurement (mass/volume)0.0-3.0[facility] - DublinComment on above:Serial tumor marker results determined by assays using different manufacturers or methods may not be comparable.[facility] health care facilities inspector and method:NILS ROME CorporationEL DXI, 2 SITE IMMUNOENZYMATICSANDWICH ASSAY.Cancer Antigen 125on 87-77-2552Htqcpa Antigen [address]215.7Yjludi1.0-38.1The [facility] Physician GroupComment on above:Result Comment: [employer] Electrochemiluminescence Immunoassay (ECLIA) Values obtained with different assay methods or kits cannot be used interchangeably. Results cannot be interpreted as absolute evidence of the presence or absence of malignant disease. Performed at: [place] [id number] Furnace Combination Analyst: Ced Masters PhD, Phone: [phone] By: #### CA125, LDI, AFPTM #### [facility] , #### CEA, HCGQNT #### [place] [id number] USAChoriogonadotropin.beta subunit [Units/volume] in Serum or PlasmaOrdered By: Melia Mantilla on 83-82-6954JTD.beta subunit Qn Choriogonadotropin.beta subunit [Units/volume] in Serum or PlasmaSelect Medical Ohiohealth Rehabilitation Hospital - DublinComment on above:Approximate Approximate hCG Gestational Age Range (mIU/ml) (weeks)0.2-1 5-50 1-2 50-500 2-3 100-5,000 3-4 500-10,000 4-5 1,000-50,000 5-6 10,000-100,000 6-8 15,000-200,000 8-12 10,000-100,000 HCG,Quantitativeon 62-57-8145EAY,Quantitative<0.60NormAdventHealth Dade City Physician Scott Regional HospitalComment on above:Result Comment: Approximate Approximate hCG Gestational Age Range (mIU/ml) (weeks) 0.2-1 5-50 1-2 50-500 2-3 100-5,000 3-4 500-10,000 4-5 1,000-50,000 5-6 10,000-100,000 6-8 15,000-200,000 8-12 10,000-100,000 PERFORMED BY: [place] [address] PATHOLOGIST SOUND EFFECTS SUPERVISOR CORNELIUS MARK M.D.Performed By: #### CA125, LDI, AFPTM #### [facility] , #### CEA, HCGQNT #### [place] [address] USALD Isoenzymeson 75-54-6124FO9 Soybmracl16 %Moaimx13-75Tik [facility] Physician [facility] HospitalComment on above:Performed By: #### CA125, LDI, AFPTM #### [facility] , #### CEA, HCGQNT #### [place] [address] USALD2 Effmpnyza55 %Foaoza43-64Xdb [facility] Physician [facility] Comment on above:Performed By: #### CA125, LDI, AFPTM #### [facility] , #### CEA, HCGQNT #### [facility] [address] [place] [address] USALD3 Nxwbzraud28 %Hcuefs51-84Chs [facility]ician Group Comment on above:Performed By: #### CA125, LDI, AFPTM #### [facility] , #### CEA, HCGQNT #### [facility] [address] [place] [address] USALD4 Ljyuzpmdq95 %Normal5-13The [facility]ician [facility] Comment on above:Performed By: #### CA125, LDI, AFPTM #### [facility] , #### CEA, HCGQNT #### [facility] [address] [place] [address] USALD5 Nwgkqpkld01 %Normal4-20The [facility] Comment on above:Result Comment: Performed at: CB - [facility] [place] [address] [place], [place] [id number] Furnace Combination Analyst: Ced Masters PhD, Phone: [phone] Performed at: - [facility] [address] [id number] Furnace Combination Analyst: Klever Echevarria MD, Phone: [phone] PERFORMED BY: [place] [address] PATHOLOGIST SOUND EFFECTS SUPERVISOR CORNELIUS MARK M.D.Performed By: #### CA125, LDI, AFPTM #### [facility] , #### CEA, HCGQNT #### [facility] [address] [place] [address] USATotal LD/Trstclzzgz025Zixaqk785-773Kgs [facility] Physician GroupComment on above:Performed By: #### CA125, LDI, AFPTM #### [facility] , #### CEA, HCGQNT #### [facility] [address] [place] [address] USALactate dehydrogenase isoenzyme 1 measurementOrdered By: Melia Warchol on 24-49-5996EDN 1 Elph [Catalytic fraction]Lactate dehydrogenase isoenzyme 1 dueitowvqvo49-43FztbmvgqdSelect Medical [facility] Rehabilitation Hospital - DublinLactate dehydrogenase isoenzyme 2 measurementOrdered By: Melia Warchol on 15-63-4043VYJ 2 Elph [Catalytic fraction]Lactate dehydrogenase isoenzyme 2 gtnavyluprq41-13 [facility] - DublinLactate dehydrogenase isoenzyme 3 measurement Ordered By: Melia Warchol on 07-42-1633TKF 3 Elph [Catalytic fraction]Lactate dehydrogenase isoenzyme 3 hwbsdarjpcc38-08CwkizlwjmSelect Medical [facility] Lactate dehydrogenase isoenzyme 4 measurementOrdered By: Melia Warchol on 17-03-6768ELS 4 Elph [Catalytic fraction]Lactate dehydrogenase isoenzyme 4 measurement5-13[facility] - DublinLactate dehydrogenase isoenzyme 5 measurementOrdered By: Melia Mantilla on 64-06-5563CBN 5 Elph [Catalytic fraction]Lactate dehydrogenase isoenzyme 5 measurement01-06[facility] Hospital - DublinComment on above:Performed at: [facility] [employer] [id number] Director: Ced Masters PhD, Phone: [phone] at: [address] [id number] Director: Klever Echevarria MD, Phone: [phone] or plasma vanet-7-nqpgbxqkefq tumor marker measurement (mass/volume)Ordered By: Melia Mantilla on 19-38-4163KQJ.tumor marker [Mass/Vol]Serum or plasma qwyhl-1-rfqxfzzcmix tumor marker measurement (mass/volume)High0.0-4.7FUniversity Hospitals Geneva Medical CenterComment on above:[facility] Electrochemiluminescence Immunoassay(ECLIA)Values obtained with different assay methods or kits cannotbe used interchangeably. Results cannot be interpreted asabsolute evidence of the presence or absence of malignantdisease.This test is not interpretable in females.Serum or plasma cancer antigen 125 (CA- 125) measurement (units/volume)Ordered By: Melia Mantilla on 00-71-9548Bzdhdl Ag 125 QnSerum or plasma cancer antigen 125 (CA-125) measurement (units/volume) 0.0-38.1FUniversity Hospitals Geneva Medical CenterComment on above:[facility] Electrochemiluminescence Immunoassay(ECLIA)Values obtained with different assay methods or kits cannotbe used interchangeably. Results cannot be interpreted asabsolute evidence of the presence or absence of malignantdisease.Performed at: [address] [id number] Director: Ced Masters PhD, Phone: [phone] lactic dehydrogenase (LDH) and isoenzymes measurementOrdered By: Melia Mantilla on 95-95-3949BWW panelTotal lactic dehydrogenase (LDH) and isoenzymes prgdrnjfjix214-764LuevfszanSelect Medical Ohiohealth Rehabilitation Hospital - DublinUS PELVIC COMPLETE W/ TVon 27-87-8342VJ PELVIC COMPLETE W/ TVEXAM: US PELVIC COMPLETE W/ TV HISTORY: Left ovarian cyst, abdominal cramping, infertility. COMPARISON: Pelvic ultrasound 10/15/2022 - Report only. TECHNIQUE: Two-dimensional transabdominal grayscale ultrasound imaging of the pelvis was performed.Color flow Doppler imaging of the ovaries were [...] with multiple follicles. The ovarian volume is 19mL. There is normal color Doppler flow. LEFT [...] PHD at 07-Nov-2024 08:03:54 AM [facility] TeleradiologyNormalNot AvailableComment on above:Order Comment: US PELVIS-TRANSVAG IF INDICATED No LMP recorded.HCG ( test) Ql (U)on 57-36-1258Bkckhuugfcqxqe and review of laboratory resultsNormalNOWI HealthcarePreg Test, UrNegativeNegative NOMS Lancaster [facility] HospitalNOShriners Hospitals for ChildrenAlanine aminotransferase [Enzymatic activity/volume] in Serum or PlasmaOrdered By: López Coburn on 17-09-8114UUA [Catalytic activity/Vol]Alanine aminotransferase [Enzymatic activity/volume] in Serum or Plasma7[facility] - DublinAlbumin [Mass/volume] in Serum or Plasma by Bromocresol green (BCG) dye binding methoOrdered By: López Coburn on 35-01-2672Dzkwbbj BCG dye [Mass/Vol]Albumin [Mass/volume] in Serum or Plasma by Bromocresol green (BCG) dye binding metho3.5-5.7FUniversity Hospitals Geneva Medical CenterAlkaline phosphatase [Enzymatic activity/volume] in Serum or PlasmaOrdered By: López Coburn on 74-73-2239PCV [Catalytic activity/Vol] Alkaline phosphatase [Enzymatic activity/volume] in Serum or Pbfbdo37-437 [facility] - DublinAppearance of UrineOrdered By: López Coburn on 50-20-3101Uraognvfvg (U)Urine appearanceAbnormalClearSelect Medical Ohiohealth Rehabilitation Hospital - DublinAspartate aminotransferase [Enzymatic activity/volume] in Serum or Plasma Ordered By: López Coburn on 50-05-6695AVA [Catalytic activity/Vol]Aspartate aminotransferase [Enzymatic activity/volume] in Serum or Mpmrez70-84OnrpgzvkpSelect Medical Ohiohealth Rehabilitation Hospital - DublinBacteria [Presence] in Urine by AutomatedOrdered By: López Coburn on 08-57-2159Bnfyxijh Auto Ql (U)Bacteria [Presence] in Urine by AutomatedNone SeenSelect Medical Ohiohealth Rehabilitation Hospital - DublinBasophils Auto (Bld) [#/Vol] Ordered By: López Coburn on 05-31-1647Oynrokirf (Bld) [#/Vol]Automated basophil count0.0-0.2FUniversity Hospitals Geneva Medical CenterBasophils/100 WBC Auto (Bld) Ordered By: López Coburn 65-88-2358Nvkquutrk/100 WBC (Bld)Automated basophil %.[facility] - DublinBilirubin Test strip Ql (U)Ordered By: López Coburn on 27-61-1254Ijtktpnyz Ql (U)Bilirubin.total [Presence] in Urine by Test stripNegativeSelect Medical Ohiohealth Rehabilitation Hospital - DublinBilirubin.total [Mass/volume] in Serum or PlasmaOrdered By: López Coburn on 98-47-2092Spoysvktb [Mass/Vol]Bilirubin.total [Mass/volume] in Serum or Plasma0.3-1.0[facility] - DublinCalcium [Mass/volume] in Serum or PlasmaOrdered By: López Coburn on 09-05-9632Fmuntvd [Mass/Vol]Calcium [Mass/volume] in Serum or PlasmaHigh8.6-10.3FUniversity Hospitals Geneva Medical CenterCarbon dioxide, total [Moles/volume] in Serum or PlasmaOrdered By: López Coburn on 17-97-5059MF9 [Moles/Vol]Carbon dioxide, total [Moles/volume] in Serum or Dkuipd87.0-31.0 [facility] - DublinChloride [Moles/volume] in Serum or Plasma Ordered By: López Coburn on 72-21-0578Jqtxwqwb [Moles/Vol]Chloride [Moles/volume] in Serum or Qwjkjl21-850TdiinsbxfSelect Medical Ohiohealth Rehabilitation Hospital - DublinColor Auto (U)Ordered By: López Coburn on 61-98-6947Zjkke (U)Color of Urine by Auto YellowSelect Medical Ohiohealth Rehabilitation Hospital - DublinComplete Blood Count Auto Diffon 86-64-3092Pzrzmljbk (Bld) [#/Vol]0.0 10*3/uLNormal0.0-0.2The [facility] Physician GroupComment on above:Result Comment: PERFORMED BY: [facility] [address] [id number] PATHOLOGIST SOUND EFFECTS SUPERVISOR CORNELIUS MARK M.D.Performed By: #### CBC, CMP ####[place] [address] USABasophils/100 WBC (Bld)0.3 % Normal.The [facility] Physician GroupComment on above:Performed By: #### CBC, CMP ####[place] [address] [place] Eosinophils (Bld) [#/Vol]0.0 10*3/uLNormal0.0-0.45The [facility] Comment on above:Performed By: #### CBC, CMP ####[place] [address] USAEosinophils/100 WBC (Bld)0.1 %Normal. The [facility] Physician GroupComment on above:Performed By: #### CBC, CMP ####[address] Erythrocyte distribution width (RBC) [Ratio]13.5 %Wajfgb55.9-15.3The [facility] Physician GroupComment on above:Performed By: #### CBC, CMP ####[place] [address] USAHematocrit (Bld) [Volume fraction]40.4 %Lnymjn93.0-46.4The [facility] Physician GroupComment on above:Performed By: #### CBC, CMP ####[place] [address] USAHemoglobin (Bld) [Mass/Vol]13.9 g/yUWehuex20.8-15.4 The [facility] Physician GroupComment on above:Performed By: #### CBC, CMP ####[place] [address] [place] Lymphocytes (Bld) [#/Vol]1.4 10*3/uLNormal1.00-4.8The [facility] Comment on above:Performed By: #### CBC, CMP ####[place] [address] USALymphocytes/100 WBC (Bld)20.3 %Normal. The [facility] Physician GroupComment on above:Performed By: #### CBC, CMP ####[address] StreetMCH (RBC) [Entitic mass]29.1 kqWailos08.7-34.3The [facility] Physician GroupComment on above:Performed By: #### CBC, CMP ####[place] [id number] [facility] HEALTH CENTERMCV (RBC) [Entitic vol]84.6 lEJhnivt69-089Qaq [facility] Physician GroupComment on above:Performed By: #### CBC, CMP ####[place] [address] USAMean Corpuscular HGB Conc34.4 g/eEKvqwwi28.0-35.0The [facility] Physician GroupComment on above:Performed By: #### CBC, CMP ####[place] [address] USAMonocytes (Bld) [#/Vol]0.7 10*3/uLNormal 0.0-0.8The [facility] Physician GroupComment on above:Performed By: #### CBC, CMP ####[place] [address] [place] Monocytes/100 WBC (Bld)17.74 %Normal0.00-20.00[facility] Comment on above:Performed By: #### CBC, CMP ####[place] [address] USAMonocytes/100 WBC (Bld)9.6 %Normal.The [facility] Physician GroupComment on above:Performed By: #### CBC, CMP ####[place] [address] [place] Neutrophils (Bld) [#/Vol]4.8 10*3/uLNormal1.8-7.7The [facility] Comment on above:Performed By: #### CBC, CMP ####[place] [address] USANeutrophils/100 WBC (Bld)69.7 %Normal. The [facility] Physician GroupComment on above:Performed By: #### CBC, CMP ####[place] [address] USANRBC% 0.1 /100{WBC}Normal0-0.5The [facility] Physician GroupComment on above:Performed By: #### CBC, CMP ####[place] [address] USAPlatelet mean volume (Bld) [Entitic vol]8.0 fLNormal6.3-10.7The [facility] Physician GroupComment on above:Performed By: #### CBC, CMP ####[place] [address] [place] Platelets (Bld) [#/Vol]253 10*3/kYFhswqd964-713Dwc [facility] Comment on above:Performed By: #### CBC, CMP ####[address] [place] [address] USARBC (Bld) [#/Vol]4.77 10*6/uLNormal 3.60-5.00The [facility] Physician GroupComment on above:Performed By: #### CBC, CMP ####[address] [address] USAWBC (Bld) [#/Vol]7.0 10*3/uLNormal3.8-11.6The [facility] Physician GroupComment on above:Performed By: #### CBC, CMP ####[address] [address] USAComprehensive Metabolic Panelon 10-46-9874Hrrromi [Mass/Vol]4.7 g/dLNormal3.5-5.7The [facility] Physician GroupComment on above: Performed By: #### CBC, CMP ####[place] [id number] USAAlbumin/Globulin [Mass ratio]1.7 {ratio}NormalThe [facility] Physician GroupComment on above:Performed By: #### CBC, CMP ####[address] [address] USAALP [Catalytic activity/Vol]44 U/ALolkje23-514Jpf [facility] Physician GroupComment on above:Performed By: #### CBC, CMP ####[address] [address] USAALT [Catalytic activity/Vol]10 U/LNormal7-52 The [facility] Physician GroupComment on above:Performed By: #### CBC, CMP ####[address] [address] USAAnion gap [Moles/Vol]14.7 mmol/LNormal6.0-15.0The [facility] Physician GroupComment on above:Performed By: #### CBC, CMP ####[address] [address] USAAST [Catalytic activity/Vol]13 U/AEtkrzj05-27Lrk [facility] Physician GroupComment on above:Performed By: #### CBC, CMP ####[place] [address] [place] [address] [place] Bilirubin [Mass/Vol]0.4 mg/dLNormal0.3-1.0The [facility] Physician GroupComment on above:Performed By: #### CBC, CMP ####[address] [address] USACalcium [Mass/Vol]10.4 mg/dLHigh8.6-10.3The [facility] Physician GroupComment on above:Performed By: #### CBC, CMP ####[address] [address] [place] Chloride [Moles/Vol]106 mmol/FZbsjjw47-366Obp [facility] Physician GroupComment on above:Performed By: #### CBC, CMP ####[address] [address] USACO2 [Moles/Vol]23.3 mmol/GAotnde98.0-31.0The [facility] Physician GroupComment on above:Performed By: #### CBC, CMP ####[address] [address] [place] Creatinine [Mass/Vol]0.77 mg/dLNormal0.60-1.20[facility] Comment on above:Performed By: #### CBC, CMP ####[address] [address] USACreatinine Clr Calc Vywjtwdj273.29 NormalThe [facility] Physician GroupComment on above:Result Comment: PERFORMED BY: [facility] [address] [place] [id number] PATHOLOGIST SOUND EFFECTS SUPERVISOR CORNELIUS MARK M.D.Performed By: #### CBC, CMP ####[address] [address] USAGFR/1.73 sq M.predicted MDRD (S/P/Bld) [Vol rate/Area]mL/min/{1.73_m2}NormalThe [facility]ician [facility] Comment on above:Performed By: #### CBC, CMP ####[place] [address] USAGlobulin (S) [Mass/Vol]2.7 g/dLNormal The [facility] Physician GroupComment on above:Performed By: #### CBC, CMP ####[place] [address] USAGlucose [Mass/Vol]89 mg/lLAqituj36-573Riq [facility] Physician GroupComment on above: Result Comment: Random Glucose Reference Range is dependent on time and content of last meal. Glucose of more than 200 mg/dL in a nonstressed, ambulatory subject supports the diagnosis of Diabetes Mellitus. ADA recommended reference rangePerformed By: #### CBC, CMP ####[place] [address] USAPotassium [Moles/Vol] 4.0 mmol/LNormal3.5-5.1The [facility] Physician GroupComment on above:Performed By: #### CBC, CMP ####[place] [address] USAProtein [Mass/Vol]7.4 g/dLNormal6.4-8.9The [facility] Comment on above:Performed By: #### CBC, CMP ####[place] [address] USASodium [Moles/Vol]140 mmol/LNormal 136-145The [facility] Physician GroupComment on above:Performed By: #### CBC, CMP ####[place] [address] USAUrea nitrogen [Mass/Vol]15 mg/dLNormal7-25The [facility] Physician GroupComment on above:Performed By: #### CBC, CMP ####[place] [address] USACreatinine [Mass/volume] in Serum or PlasmaOrdered By: López Coburn on 80-00-4493Eufyxgzceh [Mass/Vol]Creatinine [Mass/volume] in Serum or Plasma0.60-1.20[facility] Hospital - DublinDipstick and Microscopicon 14-99-7350Mgxlagdhxk (U)CloudyCritically abnormalClearThe [facility] Physician GroupComment on above:Order Comment: Name Collection Type:: Clean-Voided MidstreamPerformed By: #### ADDONUAPLUS, UHCG #### [address] [address] USABacteria,UrineRareNormalNone SeenTgh Crystal River Physician GroupComment on above:Order Comment: Name Collection Type:: Clean-Voided MidstreamPerformed By: #### ADDONUAPLUS, UHCG #### [address] [address] USABilirubin,UrineNegativeNormalNegativeTgh Crystal River Physician GroupComment on above:Order Comment: Name Collection Type:: Clean- Voided MidstreamPerformed By: #### ADDONUAPLUS, UHCG #### [address] [address] USAColor (U)YellowNormalYellowTgh [facility] Comment on above:Order Comment: Name Collection Type:: Clean-Voided Midstream Performed By: #### ADDONUAPLUS, UHCG #### [place] [id number] USAGlucose Ql (U)NormalNormalNormalThe [facility] Physician GroupComment on above:Order Comment: Name Collection Type:: Clean-Voided MidstreamPerformed By: #### ADDONUAPLUS, UHCG #### [facility] [address] [place] [address] USAHyaline Casts,Urine9 [LPF]High0-8The [facility] Physician GroupComment on above:Order Comment: Name Collection Type:: Clean-Voided MidstreamPerformed By: #### ADDONUAPLUS, UHCG #### [place] [id number] USAKetones Ql (U)2+HighNegativeTgh [facility] Comment on above:Order Comment: Name Collection Type:: Clean-Voided Midstream Performed By: #### ADDONUAPLUS, UHCG #### [facility] [address] [place] [address] USALeukocyte esterase Test strip Ql (U)NegativeNormalNegative The [facility] Physician GroupComment on above:Order Comment: Name Collection Type:: Clean-Voided MidstreamPerformed By: #### ADDKIKO UHCG #### [place] [address] USAMucus,Urine4+Critically abnormalThe [facility] Physician GroupComment on above:Order Comment: Name Collection Type:: Clean-Voided MidstreamPerformed By: #### ADDONSADE UHCG #### [place] [address] USANitrite,UrineNegativeNormalNegativeThe [facility] Physician GroupComment on above:Order Comment: Name Collection Type:: Clean-Voided MidstreamPerformed By: #### ADDKIKO UHCG #### [place] [address] USAOccult Blood,UrineNegativeNormalNegativeThe [facility] Physician GroupComment on above:Order Comment: Name Collection Type:: Clean- Voided MidstreamPerformed By: #### ADDONSADE UHCG #### [place] [address] USApH (U)6.0 [pH]Normal5.0-9.0The [facility] Comment on above:Order Comment: Name Collection Type:: Clean-Voided Midstream Performed By: #### ADDONSADE UHCG #### [place] [address] USAProtein (U) [Mass/Vol]30 mg/dLHighNegativeThe [facility] Physician GroupComment on above:Order Comment: Name Collection Type:: Clean- Voided MidstreamPerformed By: #### ADDONUAPLUS, UHCG #### [place] [address] USARBC,Urine1 [HPF]Normal0-4The [facility] Comment on above:Order Comment: Name Collection Type:: Clean-Voided Midstream Performed By: #### ADDONUAPLUS UHCG #### [address] [place] [address] USASpecificy [place],Urine1.593Khus0.001-1.030The [facility] Physician GroupComment on above:Order Comment: Name Collection Type:: Clean- Voided MidstreamPerformed By: #### ADDONUAPLUS, UHCG #### [facility] [address] [place] [address] USASquamous Epithelial Cell,Urine10 [HPF]High0-2The [facility] Physician GroupComment on above:Order Comment: Name Collection Type:: Clean- Voided MidstreamPerformed By: #### ADDONUAPLUS, UHCG #### [facility] [address] [place] [address] USAUrobilinogen,Urine2 mg/dLHighNormalThe [facility] Physician GroupComment on above:Order Comment: Name Collection Type:: Clean-Voided MidstreamPerformed By: #### ADDONUAPLUS, UHCG #### [facility] [address] [place] [address] USAWBC,Urine3 [HPF]Normal0-4The [facility] Comment on above:Order Comment: Name Collection Type:: Clean-Voided Midstream Performed By: #### ADDONUAPLUS, UHCG #### [place] [address] USAEosinophils Auto (Bld) [#/Vol]Ordered By: López Coburn on 35-23-4400Iwhviqemdeo (Bld) [#/Vol]Automated eosinophil count0.0-0.45[facility] - DublinEosinophils/100 WBC Auto (Bld)Ordered By: López Coburn on 52-49-8677Onxhpbvzrah/100 WBC (Bld)Automated eosinophil %.[facility] - DublinEpithelial cells.squamous [#/area] in Urine sediment by Automated countOrdered By: López Coburn on 47-03-2826Inecffrisb cells.squamous Auto (Urine sed) [#/Area]Epithelial cells.squamous [#/area] in Urine sediment by Automated countHigh0-2FUniversity Hospitals Geneva Medical CenterErythrocyte distribution width Auto (RBC) [Ratio]Ordered By: López Coburn on 59-38-2465Eemndfjysci distribution width (RBC) [Ratio]Erythrocyte distribution width [Ratio] by Automated count11.9-15.3FUniversity Hospitals Geneva Medical CenterErythrocytes [#/area] in Urine sediment by Automated countOrdered By: López Coburn on 16-80-4349RXU Auto (Urine sed) [#/Area]Erythrocytes [#/area] in Urine sediment by Automated count0-4FUniversity Hospitals Geneva Medical CenterGlobulin Calc (S) [Mass/Vol]Ordered By: López Coburn on 41-64-4974Rblixkmg (S) [Mass/Vol]Serum globulin measurement by calculation (mass/volume)[facility] - DublinGlucose [Mass/volume] in Serum or PlasmaOrdered By: López Coburn on 35-78-4081Pleqoau [Mass/Vol] Glucose [Mass/volume] in Serum or Fhunyf82-050TfchohwtwSelect Medical Ohiohealth Rehabilitation Hospital - Dublin Comment on above:ADA recommended reference rangeRandom Glucose Reference Range is dependent on time and content of last meal. Glucose of more than 200 mg/dL in a nonstressed, ambulatory subject supports the diagnosisof Diabetes Mellitus. Glucose [Mass/volume] in Urine by Test stripOrdered By: López Coburn on 62-38-3780Lulbofi Test strip (U) [Mass/Vol]Glucose [Mass/volume] in Urine by Test stripNormalSelect Medical Ohio[facility] Rehabilitation Hospital - DublinHC ( test) IA.rapid Ql (U)Ordered By: López Coburn on 02-38-5217TYZ ( test) Ql (U)Urine human chorionic gonadotropin (hCG) detection by immunoassaySelect Medical Ohiohealth Rehabilitation Hospital - DublinHC,Urineon 22-13-7477Cvbn HCG ( test) Ql (U)Negative NormalThe [facility] Harrisburg Physician GroupComment on above:Order Comment: Name Collection Type:: Clean-Voided MidstreamResult Comment: PERFORMED BY: [facility] [address] [place] [address] PATHOLOGIST SOUND EFFECTS SUPERVISOR CORNELIUS MARK M.D.Performed By: #### [facility] [place] #### [facility] [address] [place] [address] USAHematocrit Auto (Bld) [Volume fraction]Ordered By: López Coburn on 93-48-2256Fjobhvicmp (Bld) [Volume fraction]Hematocrit [Volume Fraction] of Blood by Automated count34.0-46.4FUniversity Hospitals Geneva Medical Center Hemoglobin Test strip Ql (U)Ordered By: López Coburn on 91-44-6063Afxltrccnf Ql (U)Hemoglobin [Presence] in Urine by Test stripNegativeSelect Medical Ohiohealth Rehabilitation Hospital - DublinHemoglobin [Mass/volume] in BloodOrdered By: López Coburn on 22-82-1455Hznjseisfc (Bld) [Mass/Vol]Hemoglobin [Mass/volume] in Blood11.8-15.4 [facility] - DublinHyaline casts [#/area] in Urine sediment by Automated countOrdered By: López Coburn on 26-84-7552Wrzryzy casts Auto (Urine sed) [#/Area]Hyaline casts [#/area] in Urine sediment by Automated countHigh0-8 [facility] - DublinKetones Test strip Ql (U)Ordered By: López Coburn on 24-85-0271Tzjrhxb Ql (U)Ketones [Presence] in Urine by Test stripHigh NegativeSelect Medical Ohiohealth Rehabilitation Hospital - DublinLeukocyte esterase [Presence] in Urine by Test stripOrdered By: López Coburn on 49-44-2308Yjoztjeve esterase Test strip Ql (U)Leukocyte esterase [Presence] in Urine by Test stripNegative [facility] - DublinLeukocytes [#/area] in Urine sediment by Automated countOrdered By: López Coburn on 34-71-5640PCN Auto (Urine sed) [#/Area]Leukocytes [#/area] in Urine sediment by Automated count0-4FUniversity Hospitals Geneva Medical CenterLeukocytes [#/volume] corrected for nucleated erythrocytes in Blood by Automated counOrdered By: López Coburn on 10-17-2024 WBC corrected for nucl RBC Auto (Bld) [#/Vol]Leukocytes [#/volume] corrected for nucleated erythrocytes in Blood by Automated coun3.8-11.6FUniversity Hospitals Geneva Medical CenterLymphocytes Auto (Bld) [#/Vol]Ordered By: López Coburn on 17-40-5780Shxqfokwbjq (Bld) [#/Vol]Lymphocytes [#/volume] in Blood by Automated count1.00-4.8[facility] - DublinLymphocytes/100 WBC Auto (Bld) Ordered By: López Coburn on 83-14-3330Xnamrobphxk/100 WBC (Bld)Lymphocytes/100 leukocytes in Blood by Automated count.[facility] - DublinMCH Auto (RBC) [Entitic mass]Ordered By: López Coburn on 58-46-0861KMI (RBC) [Entitic mass]MCH [Entitic mass] by Automated count24.7-34.3FUniversity Hospitals Geneva Medical CenterMCHC Auto (RBC) [Mass/Vol]Ordered By: López Coburn on 28-14-6840EVPZ (RBC) [Mass/Vol]MCHC [Mass/volume] by Automated count32.0-35.0[facility] - DublinMCV Auto (RBC) [Entitic vol]Ordered By: López Coburn on 48-12-2655XSM (RBC) [Entitic vol]MCV [Entitic volume] by Automated ocaha35-525 [facility] - DublinMonocyte distribution width [Entitic volume] in Blood by AutomatedOrdered By: López Coburn on 55-57-8277Qvcghwwb distribution width Auto (Bld) [Entitic vol]Monocyte distribution width [Entitic volume] in Blood by Automated0.00-20.00[facility] - DublinMonocytes Auto (Bld) [#/Vol]Ordered By: López Coburn on 44-34-9103Ylogwvwer (Bld) [#/Vol] Automated blood monocyte count0.0-0.8[facility] Monocytes/100 WBC Auto (Bld)Ordered By: López Coburn on 85-92-9097Xqivdfbjr/100 WBC (Bld)Automated monocyte %.[facility] - DublinMucus [Presence] in Urine by AutomatedOrdered By: López Coburn on 48-00-1403Qyfjb Auto Ql (U) Mucus [Presence] in Urine by AutomatedAbnormalSelect Medical [facility] Rehabilitation Hospital - Dublin Neutrophils Auto (Bld) [#/Vol]Ordered By: López Coburn on 04-59-0443Ghzcjthmazr (Bld) [#/Vol]Neutrophils [#/volume] in Blood by Automated count1.8-7.7FUniversity Hospitals Geneva Medical CenterNeutrophils/100 WBC Auto (Bld)Ordered By: López Coburn on 17-68-5237Xzkgyiykdzc/100 WBC (Bld)Automated neutrophil %.[facility] Medical CenterNitrite Test strip Ql (U)Ordered By: López Coburn on 10-17-2024 Nitrite Ql (U)Nitrite [Presence] in Urine by Test stripNegRegency Hospital Cleveland WestNo Panel InformationOrdered By: López Coburn on 40-05-4727Wgxooipei GFR (CKD-EPI)> 60.0 mL/Min[facility] Clear[facility] (Aufi850.29[facility] Nucleated erythrocytes [Presence] in Blood by Automated countOrdered By: López Coburn on 29-70-4899Ysjlrxqrg RBC Auto Ql (Bld)Nucleated erythrocytes [Presence] in Blood by Automated count0-0.5FUniversity Hospitals Geneva Medical CenterPlatelet mean volume Auto (Bld) [Entitic vol]Ordered By: López Coburn on 83-60-5374Wwlgsizd mean volume (Bld) [Entitic vol]Platelet mean volume [Entitic volume] in Blood by Automated count6.3-10.7FUniversity Hospitals Geneva Medical CenterPlatelets Auto (Bld) [#/Vol]Ordered By: López Coburn on 22-99-8033Brtznjcun (Bld) [#/Vol]Platelets [#/volume] in Blood by Automated mhate537-976PgcdngonjSelect Medical [facility] Potassium [Moles/volume] in Serum or PlasmaOrdered By: López Coburn on 80-29-8143Mkeqyheak [Moles/Vol]Potassium [Moles/volume] in Serum or Plasma 3.5-5.1FUniversity Hospitals Geneva Medical CenterProtein Test strip (U) [Mass/Vol]Ordered By: López Coburn on 15-02-4830Ujhxdgf (U) [Mass/Vol]Protein [Mass/volume] in Urine by Test stripHighNegRegency Hospital Cleveland WestProtein [Mass/volume] in Serum or PlasmaOrdered By: López Coburn on 22-53-7607Mpndtyk [Mass/Vol]Protein [Mass/volume] in Serum or Plasma6.4-8.9[facility] DublinRBC Auto (Bld) [#/Vol]Ordered By: López Coburn on 56-70-8096VUD (Bld) [#/Vol]Erythrocytes [#/volume] in Blood by Automated count3.60-5.00 [facility] Hospitalerum or plasma albumin/globulin mass ratio Ordered By: López Coburn on 96-57-2272Pwbetth/Globulin [Mass ratio]Serum or plasma albumin/globulin mass ratioTrumbull Memorial Hospitalerum or plasma anion gap determinationOrdered By: López Coburn on 61-76-5151Pjyii gap [Moles/Vol]Serum or plasma anion gap determination6.0-15.0[facility] Hospitalodium [Moles/volume] in Serum or PlasmaOrdered By: López Coburn on 62-17-8831Eogimc [Moles/Vol]Sodium [Moles/volume] in Serum or Bxuxoc500-979 [facility] Hospitalpecific gravity Test strip (U) [Rel density] Ordered By: López Coburn on 85-68-0221Ruciiyhg gravity (U) [Rel density] Specific gravity of Urine by Test stripHigh1.001-1.030[facility] DublinUrea nitrogen [Mass/volume] in Serum or PlasmaOrdered By: López Coburn on 29-13-3716Qqfm nitrogen [Mass/Vol]Urea nitrogen [Mass/volume] in Serum or Plasma7[facility] - DublinUrobilinogen Test strip (U) [Mass/Vol]Ordered By: López Coburn on 79-84-2454Iepspzejhiwf (U) [Mass/Vol] Urobilinogen [Mass/volume] in Urine by Test stripHighNormAshtabula County Medical CenterWBC Auto (Bld) [#/Vol]Ordered By: López Coburn on 63-23-7632FQH (Bld) [#/Vol]Leukocytes [#/volume] in Blood by Automated count3.8-11.6FUniversity Hospitals Geneva Medical CenterpH Test strip (U)Ordered By: López Coburn on 10-17-2024 pH (U)pH of Urine by Test strip5.0-9.0[facility] DublinAlanine aminotransferase [Enzymatic activity/volume] in Serum or PlasmaOrdered By: Melia Mantilla on 35-93-9479QVO [Catalytic activity/Vol]9 U/LSelect Medical Ohiohealth Rehabilitation Hospital - DublinALT [Catalytic activity/Vol]Alanine aminotransferase [Enzymatic activity/volume] in Serum or PlasmaSelect Medical Ohiohealth Rehabilitation Hospital - DublinAlbumin [Mass/volume] in Serum or Plasma by Bromocresol green (BCG) dye binding metho Ordered By: Melia Mantilla on 51-92-5547Qrmgbnj BCG dye [Mass/Vol]4.4 g/dL3.5-5.7 [facility] DublinAlbumin BCG dye [Mass/Vol]Albumin [Mass/volume] in Serum or Plasma by Bromocresol green (BCG) dye binding metho3.5-5.7FUniversity Hospitals Geneva Medical CenterAlkaline phosphatase [Enzymatic activity/volume] in Serum or PlasmaOrdered By: Melia Mantilla on 41-89-0570YRJ [Catalytic activity/Vol] 42 U/Z96-691LwoippwunSelect Medical Ohiohealth Rehabilitation Hospital - DublinALP [Catalytic activity/Vol] Alkaline phosphatase [Enzymatic activity/volume] in Serum or Wxjptf54-695 [facility] DublinAspartate aminotransferase [Enzymatic activity/volume] in Serum or PlasmaOrdered By: Melia Mantilla on 50-49-6400KAI [Catalytic activity/Vol]10 U/XNaf17-46SlwvleapoSelect Medical Ohiohealth Rehabilitation Hospital - DublinAST [Catalytic activity/Vol]Aspartate aminotransferase [Enzymatic activity/volume] in Serum or ScyveoXyv16-20IfxifwxisSelect Medical Ohiohealth Rehabilitation Hospital - DublinBasophils Auto (Bld) [#/Vol]Ordered By: Melia Mantilla on 73-15-9401Qbahiealp (Bld) [#/Vol]0.0 10*3/uL 0.0-0.2FUniversity Hospitals Geneva Medical CenterBasophils (Bld) [#/Vol]Automated basophil count0.0-0.2FUniversity Hospitals Geneva Medical CenterBasophils/100 WBC Auto (Bld)Ordered By: Melia Mantilla on 71-64-1291Kgbqephfj/100 WBC (Bld)0.5 %.[facility] DublinBasophils/100 WBC (Bld)Automated basophil %.[facility] - DublinBilirubin.total [Mass/volume] in Serum or PlasmaOrdered By: Melia Mantilla on 01-71-0080Uadrshpnb [Mass/Vol]0.4 mg/dL0.3-1.0[facility] DublinBilirubin [Mass/Vol]Bilirubin.total [Mass/volume] in Serum or Plasma0.3-1.0[facility] DublinCalcium [Mass/volume] in Serum or PlasmaOrdered By: Melia Mantilla on 21-11-5103Yzmwlgq [Mass/Vol]9.7 mg/dL 8.6-10.3FUniversity Hospitals Geneva Medical CenterCalcium [Mass/Vol]Calcium [Mass/volume] in Serum or Plasma8.6-10.3FUniversity Hospitals Geneva Medical CenterCarbon dioxide, total [Moles/volume] in Serum or PlasmaOrdered By: Melia Mantilla on 34-10-8701KJ5 [Moles/Vol]31.2 mmol/LHigh21.0-31.0[facility] - DublinCO2 [Moles/Vol]Carbon dioxide, total [Moles/volume] in Serum or KkhgzyVmno71.0-31.0 [facility] DublinChloride [Moles/volume] in Serum or Plasma Ordered By: Melia Mantilla on 56-53-4770Vqzlucef [Moles/Vol]108 mmol/VGkns40-556 [facility] DublinChloride [Moles/Vol]Chloride [Moles/volume] in Serum or LeqbdaDfsd08-133RkiioapqwSelect Medical Ohiohealth Rehabilitation Hospital - DublinCreatinine [Mass/volume] in Serum or PlasmaOrdered By: Melia Mantilla on 34-92-5439Bkrwbscevs [Mass/Vol]0.81 mg/dL0.60-1.20[facility] DublinCreatinine [Mass/Vol]Creatinine [Mass/volume] in Serum or Plasma0.60-1.20[facility] DublinEosinophils Auto (Bld) [#/Vol]Ordered By: Melia Mantilla on 59-84-9123Jkfdvqlxqsc (Bld) [#/Vol]0.0 10*3/uL0.0-0.45[facility] DublinEosinophils (Bld) [#/Vol]Automated eosinophil count0.0-0.45[facility] DublinEosinophils/100 WBC Auto (Bld)Ordered By: Melia Mantilla on 28-24-0990Syfcfzngkab/100 WBC (Bld)0.7 %.[facility] Eosinophils/100 WBC (Bld)Automated eosinophil %.[facility] DublinErythrocyte distribution width Auto (RBC) [Ratio]Ordered By: Melia Mantilla on 93-88-8837Olgfbiyapzu distribution width (RBC) [Ratio]13.8 %11.9-15.3 [facility] DublinErythrocyte distribution width (RBC) [Ratio] Erythrocyte distribution width [Ratio] by Automated count11.9-15.3FUniversity Hospitals Geneva Medical CenterGlobulin Calc (S) [Mass/Vol]Ordered By: Melia Mantilla on 07-08-2069Xcmgfekb (S) [Mass/Vol]2.1 g/dLSelect Medical [facility]health [facility] Globulin (S) [Mass/Vol]Serum globulin measurement by calculation (mass/volume) [facility] DublinGlucose [Mass/volume] in Serum or PlasmaOrdered By: Melia Mantilla on 09-95-6277Qdmgvrq [Mass/Vol]91 mg/hY86-251TlzupnzgwSelect Medical Ohiohealth Rehabilitation Hospital - DublinComment on above:ADA recommended reference rangeRandom Glucose Reference Range is dependent on time and content of last meal. Glucose of more than 200 mg/dL in a nonstressed, ambulatory subject supports the diagnosisof Diabetes Mellitus.Glucose [Mass/Vol]Glucose [Mass/volume] in Serum or Plasma 70-100[facility] - DublinComment on above:ADA recommended reference rangeRandom Glucose Reference Range is dependent on time and content of last meal. Glucose of more than 200 mg/dL in a nonstressed, ambulatory subject supports the diagnosisof Diabetes Mellitus.Hematocrit Auto (Bld) [Volume fraction]Ordered By: Melia Mantilla on 75-93-4643Cdxrwaoprx (Bld) [Volume fraction]41.7 %34.0-46.4FUniversity Hospitals Geneva Medical CenterHematocrit (Bld) [Volume fraction]Hematocrit [Volume Fraction] of Blood by Automated count 34.0-46.4FUniversity Hospitals Geneva Medical CenterHemoglobin [Mass/volume] in Blood Ordered By: Melia Mantilla on 17-50-5911Iuevrylefs (Bld) [Mass/Vol]14.1 g/dL 11.8-15.4FUniversity Hospitals Geneva Medical CenterHemoglobin (Bld) [Mass/Vol]Hemoglobin [Mass/volume] in Blood11.8-15.4FUniversity Hospitals Geneva Medical CenterLeukocytes [#/volume] corrected for nucleated erythrocytes in Blood by Automated coun Ordered By: Melia Mantilla on 33-54-8527XDK corrected for nucl RBC Auto (Bld) [#/Vol]6.7 10*3/uL3.8-11.6FUniversity Hospitals Geneva Medical CenterWBC corrected for nucl RBC Auto (Bld) [#/Vol]Leukocytes [#/volume] corrected for nucleated erythrocytes in Blood by Automated coun3.8-11.6FUniversity Hospitals Geneva Medical Center Lymphocytes Auto (Bld) [#/Vol]Ordered By: Melia Mantilla on 12-15-0390Vexgcibtvnr (Bld) [#/Vol]2.3 10*3/uL1.00-4.8[facility] DublinLymphocytes (Bld) [#/Vol]Lymphocytes [#/volume] in Blood by Automated count1.00-4.8[facility] DublinLymphocytes/100 WBC Auto (Bld)Ordered By: Melia Mantilla on 75-11-3541Mmfugslpqrs/100 WBC (Bld)35.2 %.[facility] Lymphocytes/100 WBC (Bld)Lymphocytes/100 leukocytes in Blood by Automated count. [facility] Auto (RBC) [Entitic mass]Ordered By: Melia Mantilla on 79-96-2362ZSE (RBC) [Entitic mass]29.1 pg24.7-34.3FUniversity Hospitals Ahuja Medical Center (RBC) [Entitic mass]MCH [Entitic mass] by Automated count 24.7-34.3FBucyrus Community HospitalHC Auto (RBC) [Mass/Vol]Ordered By: Melia Mantilla on 49-21-6417DDOU (RBC) [Mass/Vol]33.8 g/dL32.0-35.0[facility] HospitalHC (RBC) [Mass/Vol]MCHC [Mass/volume] by Automated count32.0-35.0[facility] HospitalV Auto (RBC) [Entitic vol] Ordered By: Melia Mantilla on 76-93-7159ERY (RBC) [Entitic vol]86.1 qW04-889 [facility] HospitalV (RBC) [Entitic vol]MCV [Entitic volume] by Automated -111GweupppbjSelect Medical Ohiohealth Rehabilitation Hospital - DublinMagnesium [Mass/volume] in Serum or PlasmaOrdered By: Melia Mantilla on 43-79-6178Jcwhhzthg [Mass/Vol]1.9 mg/dL1.9-2.7FUniversity Hospitals Geneva Medical CenterMagnesium [Mass/Vol]Magnesium [Mass/volume] in Serum or Plasma1.9-2.7FUniversity Hospitals Geneva Medical Center Monocytes Auto (Bld) [#/Vol]Ordered By: Melia Mantilla on 29-89-0369Avdflopxn (Bld) [#/Vol]0.5 10*3/uL0.0-0.8[facility] DublinMonocytes (Bld) [#/Vol]Automated blood monocyte count0.0-0.8[facility] Monocytes/100 WBC Auto (Bld)Ordered By: Melia Mantilla on 37-79-0082Qnbtqpqmw/100 WBC (Bld)7.2 %.[facility] DublinMonocytes/100 WBC (Bld)Automated monocyte %.[facility] DublinNeutrophils Auto (Bld) [#/Vol] Ordered By: Melia Mantilla on 95-35-1753Iyofbzobqoi (Bld) [#/Vol]3.8 10*3/uL1.8-7.7 [facility] DublinNeutrophils (Bld) [#/Vol]Neutrophils [#/volume] in Blood by Automated count1.8-7.7FUniversity Hospitals Geneva Medical Center Neutrophils/100 WBC Auto (Bld)Ordered By: Melia Mantilla on 07-25-2024 Neutrophils/100 WBC (Bld)56.4 %.[facility] DublinNeutrophils/100 WBC (Bld)Automated neutrophil %.[facility] DublinNo Panel InformationOrdered By: Melia Mantilla on 24-14-8546Dmacgpijy GFR (CKD-EPI)> 60.0 mL/MinSelect Medical [facility]health [facility] Hospital [facility] DublinPharmacy Creatinine Clearance (ChemN/A [facility] DublinNucleated erythrocytes [Presence] in Blood by Automated countOrdered By: Melia Mantilla on 99-45-5677Xphoepsoc RBC Auto Ql (Bld) 0.1 /100{WBC}0-0.5FUniversity Hospitals Geneva Medical CenterNucleated RBC Auto Ql (Bld) Nucleated erythrocytes [Presence] in Blood by Automated count0-0.5FUniversity Hospitals Geneva Medical CenterPlatelet mean volume Auto (Bld) [Entitic vol]Ordered By: Melia Mantilla on 13-81-7774Jrhsseed mean volume (Bld) [Entitic vol]7.8 fL6.3-10.7 [facility] DublinPlatelet mean volume (Bld) [Entitic vol] Platelet mean volume [Entitic volume] in Blood by Automated count6.3-10.7 [facility] DublinPlatelets Auto (Bld) [#/Vol]Ordered By: Melia Mantilla on 91-50-2900Xnzzpgvko (Bld) [#/Vol]280 10*3/zN764-610WgfpgumjxSelect Medical Ohiohealth Rehabilitation Hospital - DublinPlatelets (Bld) [#/Vol]Platelets [#/volume] in Blood by Automated kzjow759-547BrvllqsvxSelect Medical Ohiohealth Rehabilitation Hospital - DublinPotassium [Moles/volume] in Serum or PlasmaOrdered By: Melia Mantilla on 29-21-3809Udvqqngag [Moles/Vol]4.1 mmol/L 3.5-5.1FUniversity Hospitals Geneva Medical CenterPotassium [Moles/Vol]Potassium [Moles/volume] in Serum or Plasma3.5-5.1FUniversity Hospitals Geneva Medical CenterProtein [Mass/volume] in Serum or PlasmaOrdered By: Melia Mantilla on 71-83-7707Pxizrji [Mass/Vol]6.5 g/dL6.4-8.9[facility] DublinProtein [Mass/Vol] Protein [Mass/volume] in Serum or Plasma6.4-8.9[facility] RBC Auto (Bld) [#/Vol]Ordered By: Melia Mantilla on 73-14-5967KRE (Bld) [#/Vol]4.85 10*6/uL3.60-5.00[facility] DublinRBC (Bld) [#/Vol]Erythrocytes [#/volume] in Blood by Automated count3.60-5.00[facility] Serum or plasma albumin/globulin mass ratioOrdered By: Melia Mantilla on 07-25-2024 Albumin/Globulin [Mass ratio]2.1 {ratio}[facility] Albumin/Globulin [Mass ratio]Serum or plasma albumin/globulin mass ratio [facility] Hospitalerum or plasma anion gap determinationOrdered By: Melia Mantilla on 45-33-0188Myqrd gap [Moles/Vol]7.9 mmol/L6.0-15.0[facility] DublinAnion gap [Moles/Vol]Serum or plasma anion gap determination6.0-15.0[facility] Hospitalodium [Moles/volume] in Serum or PlasmaOrdered By: Melia Costapillo on 24-56-2555Cxaqbl [Moles/Vol]143 mmol/L 136-145Tr[facility] Hospitalodium [Moles/Vol]Sodium [Moles/volume] in Serum or Fbopst441-630SbnrlhzdzSelect Medical Ohiohealth Rehabilitation Hospital - DublinUrea nitrogen [Mass/volume] in Serum or PlasmaOrdered By: Melia Mantilla on 70-27-2263Dgnr nitrogen [Mass/Vol]11 mg/dL7-[facility] DublinUrea nitrogen [Mass/Vol]Urea nitrogen [Mass/volume] in Serum or Plasma7-[facility] DublinWBC Auto (Bld) [#/Vol]Ordered By: Melia Annalee on 15-65-1992QKV (Bld) [#/Vol]6.7 10*3/uL3.8-11.6FUniversity Hospitals Geneva Medical CenterWBC (Bld) [#/Vol]Leukocytes [#/volume] in Blood by Automated count3.8-11.6FUniversity Hospitals Geneva Medical CenterALL LDHon 55-33-2597IDX [Catalytic activity/Vol]129 U/L81 - 234 U/LNOMS HealthcareCLINISYNCNOMS HealthcareXR LSPINE MIN 4 VIEWSon 06-59-9733BC LSPINE MIN 4 VIEWSEXAMINATION: XR LSPINE MIN 4 VIEWS HISTORY: Pain in thoracic [...] Electronically authenticated by: JOY CARDOZA Date: 2023-01-10 11:59[facility] AUTO DIFFon 70-24-1869SAZC #0.0 103/ulNormal0.0-0.1C[facility] ClinicComment on above:Performed By: #### CBC #### [facility] [address] [address] [address] Hilda HardenBasophils/100 WBC (Bld)0.3 %Normal0.2-2.0The [facility] Comment on above:Performed By: #### CBC #### [facility] [address] [address] [address] Hilda Ricci #0.1 103/ulNormal0.0-0.7The [facility] SpringfieldComment on above: Performed By: #### CBC #### [facility] [address] [place] [address] Dr. Hilda Downsosinophils/100 WBC (Bld)1.3 %Normal0.9-7.0The [facility] Comment on above:Performed By: #### CBC #### [facility] [address] [place] [address] Dr. Hilda Downsrythrocyte distribution width (RBC) [Ratio]13.3 %Cobhvg21.0-15.0 The [facility] SpringfieldComment on above:Performed By: #### CBC #### [facility] [address] [place] [address] Dr. Hilda HardenHematocrit (Bld) [Volume fraction]40.9 %Tvogtw79.0-48.0The [facility] SpringfieldComment on above:Performed By: #### CBC #### [facility] [address] [place] [address] Dr. Hilda HardenHemoglobin (Bld) [Mass/Vol]13.9 g/kLFatdrw24.0-16.0The [facility] SpringfieldComment on above:Performed By: #### CBC #### [facility] [address] [place] [address] Dr. Hilda House #0.02 10e3/ulNormal0.00-0.03The [facility] SpringfieldComment on above:Performed By: #### CBC #### [facility] [address] [place] [address] Dr. Hilda House %0.3 %Normal0.0-0.5The [facility] Post HospitalComment on above: Performed By: #### CBC #### [facility] [address] [address] [address] Hilda Hou #2.5 103/ulNormal1.2-3.8The [facility] on above:Performed By: #### CBC #### [facility] [address] [place] [address] Dr. Hilda Dangelohocytes/100 WBC (Bld)41.4 %Xkbnrl80.5-60.0The [facility] on above:Performed By: #### CBC #### [facility] [address] [place] [address] Dr. Hilda Blanco DIFF REQNONormalThe [facility] on above: Performed By: #### CBC #### [facility] [address] [place] [address] Dr. Hilda Aguila (RBC) [Entitic mass]28.8 ekEgitje82.7-34.0The [facility] on above:Performed By: #### CBC #### [facility] [address] [place] [address] Dr. Hilda Aguila (RBC) [Mass/Vol]34.0 g/wGHzmypt56.9-35.2The [facility] on above:Performed By: #### CBC #### [facility] [address] [place] [address] Dr. Hilda Aguila (RBC) [Entitic vol]84.9 gUYujfny98.0-99.0The [facility] on above:Performed By: #### CBC #### [facility] [address] [place] [address] Dr. Hilda Hooks #0.4 103/ulNormal0.3-0.8The [facility] on above:Performed By: #### CBC #### [facility] [address] [place] [address] Dr. Hilda Brantleyocytes/100 WBC (Bld)6.9 %Normal1.7-12.0The [facility] Comment on above:Performed By: #### CBC #### [facility] [address] [address] [address] Hilda Mosqueda #3.0 103/ulNormal1.4-6.5The [facility] SpringfieldComment on above:Performed By: #### CBC #### [facility] [address] [place] [address] Dr. Hilda Goldsteinutrophils/100 WBC (Bld)49.8 %Xsyspt16.0-75.0The [facility] SpringfieldComment on above:Performed By: #### CBC #### [facility] [address] [place] [address] Dr. Hilda Murrietalet mean volume (Bld) [Entitic vol]9.6 fLNormal9.5-13.5The [facility] SpringfieldComment on above:Performed By: #### CBC #### [facility] [address] [place] [address] Dr. Hilda HardenPLT279 103/uoCyozxe279-372Qfr [facility] SpringfieldComment on above: Performed By: #### CBC #### [facility] [address] [place] [address] Dr. Hilda HardenRBC4.82 106/ulNormal4.20-5.40The [facility] SpringfieldComment on above:Performed By: #### CBC #### [facility] [address] [place] [address] Dr. Hilda UribeBC6.1 103/ulNormal4.0-11.0The [facility] SpringfieldComment on above: Performed By: #### CBC #### [facility] [address] [place] [address] Dr. Hilda HardenPREMichaela QUANT HCGon 52-06-9983HHM QUANT<1NormalCleveland Clinic Comment on above:Performed By: #### CT/NGNA #### [facility] [address] [place] [address] Dr. Hilda Chester RANGESEE BELOWNovant Healthe [facility] SpringfieldComment on above: Result Comment: 5-50 0.2-1 WEEK 50-500 1-2 WEEKS 100-5,000 2-3 WEEKS 500-10,000 3-4 WEEKS 1,000-50,000 4-5 WEEKS 10,000-100,000 5-6 WEEKS 15,000-200,000 6-8 WEEKS 10,000-100,000 2-3 MONTHSPerformed By: #### CT/NGNA #### [facility] [address] [place] [address] Dr. Hilda Maldonado (TUMOR MARKER)on 01-39-6827IAN, Serum, Tumor Marker4.9 ng/mL Critically high0.0-4.7ThMercy Health Tiffin HospitalComment on above:Result Comment: [employer] Electrochemiluminescence Immunoassay (ECLIA) . Values obtained with different assay methods or kits cannot be used interchangeably. Results cannot be interpreted as absolute evidence of the presence or absence of malignant disease. . This test is not interpretable in females.Performed By: #### AFP. #### [facility] [address] [place] [address] Dr. Hilda HardenCA 125on 21-61-3181Lpohcl Antigen (CA) 86376.1 U/mLNormal0.0-38.1 The [facility] SpringfieldComment on above:Result Comment: [employer] Electrochemiluminescence Immunoassay (ECLIA) . Values obtained with different assay methods or kits cannot be used interchangeably. Results cannot be interpreted as absolute evidence of the presence or absence of malignant disease.Performed By: #### CA 125 #### [facility] [address] [place] [address] Dr. Hilda AndradeAon 83-74-7016FWT4.3 ng/mLNormal0.0-4.7ThMercy Health Tiffin Hospital Comment on above:Result Comment: Nonsmokers <3.9 Smokers <5.6 . [employer] Electrochemiluminescence Immunoassay (ECLIA) . Values obtained with different assay methods or kits cannot be used interchangeably. Results cannot be interpreted as absolute evidence of the presence or absence of malignant disease.Performed By: #### CT/NGNA #### [facility] [address] [place] [address] Dr. Hilda HardenHCG QUANT TUMOR MARKERon 94-81-8054MIO QNT TUMOR MARKER<1Normal The [facility] SpringfieldComment on above:Result Comment: Female (Non-) 0 - 5 (Postmenopausal) 0 [...] developed and its performance characteristics determined by [employer]. It has not been cleared or approved by the Food and Drug Administration for use as a tumor marker. . This test is not interpretable as a tumor marker in females.Performed By: #### HCGTMOR #### [facility] [address] [address] [address] Hilda HardenLDHogenaro 50-99-8346YXH873 U/GFonpda27-030Xtg [facility] Comment on above:Performed By: #### LDH #### [facility] [address] [address] [address] Hilda HardenUS PELVIS AND TRANSVAGon 20-58-1753CW PELVIS AND TRANSVAG EXAMINATION: US PELVIS AND TRANSVAG HISTORY: Polycystic ovary syndrome , [...] Electronically authenticated by: JOY CARDOZA Date: 2022-10-15 13:53NoW[facility] SERUMon 20-30-2323Wmkleaucgkhvjkmqzhalty (DHEA)640 ng/dL Critically owhx54-213JykCleveland ClinicComment on above:Result Comment: Age 1 - 5 years 0 - 67 6 - 7 years 0 - 110 8 - 10 years 0 - 185 11 - 12 years 0 - 201 13 - 14 years 0 - 318 15 - 16 years 39 - 481 17 - 19 years 40 - 491 >19 years 31 - 701Performed By: #### DHEA. #### [facility] [address] [place] [address] Dr. Hilda Marcelo-SULFATEon 72-62-3881SFNX-Ldhfroc930.0 ug/eJWagmkj545.0-433.2 The [facility] SpringfieldComment on above:Performed By: #### CT/NGNA #### [facility] [address] [place] [address] Dr. Hilda Lafleur 62-23-3050SIG8.1 mIU/mLNormalCleveland ClinicComment on above:Result Comment: Adult Female: Follicular phase 3.5 - 12.5 Ovulation phase 4.7 - 21.5 Luteal phase 1.7 - 7.7 Postmenopausal 25.8 - 134.8Performed By: #### CT/NGNA #### [facility] [address] [place] [address] Dr. Hilda HardenLUTEINIZING HORMONE (LH)on 70-36-1540XW9.9 mIU/mLNormalCleveland ClinicComment on above:Result Comment: Adult Female: Follicular phase 2.4 - 12.6 Ovulation phase 14.0 - 95.6 Luteal phase 1.0 - 11.4 Postmenopausal 7.7 - 58.5Performed By: #### CBC #### [facility] [address] [place] [address] Dr. Hilda Barrera AUTO DIFFon 79-97-7446EQSW #0.0 103/ulNormal0.0-0.1The [facility] SpringfieldComment on above:Performed By: #### CBC #### [facility] [address] [place] [address] Dr. Hilda HardenBasophils/100 WBC (Bld)0.3 %Normal0.2-2.0[facility] Comment on above:Performed By: #### CBC #### [facility] [address] [place] [address] Dr. Hilda Ricci #0.1 103/ulNormal0.0-0.7The [facility] SpringfieldComment on above: Performed By: #### CBC #### [facility] [address] [place] [address] Dr. Hilda Downsosinophils/100 WBC (Bld)1.8 %Normal0.9-7.0[facility] Comment on above:Performed By: #### CBC #### [facility] [address] [place] [address] Dr. Hilda Downsrythrocyte distribution width (RBC) [Ratio]13.3 %Qhzqtt09.0-15.0 The [facility] SpringfieldComment on above:Performed By: #### CBC #### [facility] [address] [place] [address] Dr. Hilda HardenHematocrit (Bld) [Volume fraction]39.9 %Kztpre00.0-48.0The [facility] SpringfieldComment on above:Performed By: #### CBC #### [facility] [address] [place] [address] Dr. Hilda HardenHemoglobin (Bld) [Mass/Vol]13.1 g/aTCspems54.0-16.0The [facility] SpringfieldComment on above:Performed By: #### CBC #### [facility] [address] [place] [address] Dr. Hilda House #0.02 10e3/ulNormal0.00-0.03The [facility] SpringfieldComment on above:Performed By: #### CBC #### [facility] [address] [place] [address] Dr. Hilda House %0.3 %Normal0.0-0.5The [facility] SpringfieldComment on above: Performed By: #### CBC #### [facility] [address] [place] [address] Dr. Hilda Hou #2.1 103/ulNormal1.2-3.8The [facility] SpringfieldComment on above:Performed By: #### CBC #### [facility] [address] [place] [address] Dr. Hilda Dangelohocytes/100 WBC (Bld)31.8 %Qkbvyc71.5-60.0The [facility] SpringfieldComment on above:Performed By: #### CBC #### [facility] [address] [place] [address] Dr. Hilda SequeiraUAL DIFF REQNONormalThe [facility] SpringfieldComment on above: Performed By: #### CBC #### [facility] [address] [place] [address] Dr. Hilda Aguila (RBC) [Entitic mass]27.8 raVxyjal08.7-34.0The [facility] SpringfieldComment on above:Performed By: #### CBC #### [facility] [address] [place] [address] Dr. Hilda Aguila (RBC) [Mass/Vol]32.8 g/oNNhjdyh83.9-35.2The [facility] SpringfieldComment on above:Performed By: #### CBC #### [facility] [address] [place] [address] Dr. Hilda Aguila (RBC) [Entitic vol]84.5 zCDaackk18.0-99.0The [facility] SpringfieldComment on above:Performed By: #### CBC #### [facility] [address] [place] [address] Dr. Hilda Hooks #0.5 103/ulNormal0.3-0.8The [facility] SpringfieldComment on above:Performed By: #### CBC #### [facility] [address] [place] [address] Dr. Hilda Brantleyocytes/100 WBC (Bld)7.8 %Normal1.7-12.0The [facility] Comment on above:Performed By: #### CBC #### [facility] [address] [place] [address] Dr. Hilda Mosqueda #3.8 103/ulNormal1.4-6.5The [facility] SpringfieldComment on above:Performed By: #### CBC #### [facility] [address] [place] [address] Dr. Hilda Goldsteinutrophils/100 WBC (Bld)58.0 %Oebolm65.0-75.0The [facility] SpringfieldComment on above:Performed By: #### CBC #### [facility] [address] [place] [address] Dr. Hilda Murrietalet mean volume (Bld) [Entitic vol]9.7 fLNormal9.5-13.5The [facility] SpringfieldComment on above:Performed By: #### CBC #### [facility] [address] [place] [address] Dr. Hilda HardenPLT266 103/bhLvnxho479-560Muf [facility] SpringfieldComment on above: Performed By: #### CBC #### [facility] [address] [place] [address] Dr. Hilda HardenRBC4.72 106/ulNormal4.20-5.40The [facility] SpringfieldComment on above:Performed By: #### CBC #### [facility] [address] [place] [address] Dr. Hilda HardenWBC6.6 103/ulNormal4.0-11.0The [facility] SpringfieldComment on above: Performed By: #### CBC #### [facility] [address] [place] [address] Dr. Hilda HardenFREE T4on 93-52-7863Ejjg T4 [Mass/Vol]1.09 ng/dLNormal0.78-1.34 The [facility] SpringfieldComment on above:Performed By: #### CT/NGNA #### [facility] [address] [place] [address] Dr. Hilda HardenGLYCOHEMOGLOBIN A1Con 85-53-4184PNH RECOMMENDATIONSEE BELOWNormal The [facility] SpringfieldComment on above:Result Comment: ADA RECOMMENDED LIMIT 4.0 - 6.0 ADA THERAPEUTIC TARGET < 7.0 ACTION SUGGESTED > 7.0Performed By: #### A1C #### [facility] [address] [place] [address] Dr. Hilda HardenGlucose [Mass/Vol]100 mg/dLNormalThe [facility] SpringfieldComment on above:Performed By: #### A1C #### [facility] [address] [place] [address] Dr. Hilda HardenHbA1c (Bld) [Mass fraction]5.1 %Normal4.5-6.2Cleveland ClinicComment on above:Performed By: #### A1C #### [facility] [address] [place] [address] Dr. Hilda HardenTSHogenaro 45-11-9161WPA2.199 uIU/mLNormal0.516-4.130The [facility] SpringfieldComment on above:Performed By: #### TSH #### [facility] [address] [place] [address] Dr. Hilda HardenCHLAMYDIA/GONOCOCCUS RON (SWAB/URINE/PAPon 31-59-4733Inocepsph trachomatis, NAANegativeNormalNegativeThe [facility] SpringfieldComment on above: Performed By: #### CT/NGNA #### [facility] [address] [place] [address] Dr. Hilda HardenNeisseria gonorrhoeae, NAANegativeNormalNegativeThe [facility] SpringfieldComment on above:Performed By: #### CT/NGNA #### [facility] [address] [address] [address] Hilda HardenVAGINITIS/VAGINOSIS DNA PROBEon 28-68-7321Etgkqzn speciesNegative NormalNegativeCleveland ClinicComment on above:Performed By: #### CBC #### [facility] [address] [address] [address] Hilda Weemserella vaginalisPositiveAbnormalNegativeCleveland ClinicComment on above:Performed By: #### CBC #### [facility] [address] [address] [address] Hilda HardenTrichomonas vaginalisNegativeNormalNegativeCleveland Clinic Comment on above:Performed By: #### CBC #### [facility] [address] [address] [address] Hilda HardenBasophils Auto (Bld) [#/Vol]Ordered By: Severo Lea on 02-07-2022 Basophils (Bld) [#/Vol]0.0 10*3/uL0.0-0.1FUniversity Hospitals Geneva Medical Center Basophils/100 WBC Auto (Bld)Ordered By: Severo Lae on 84-72-9445Wtsvpyyar/100 WBC (Bld)0.6 %[facility] DublinBilirubin Test strip Ql (U) Ordered By: Severo Lea on 49-40-0847Rsszzctte Ql (U)NegativeNegativeSelect Medical [facility] Rehabilitation Hospital - DublinBlood hemoglobin measurement (mass/volume)Ordered By: Severo Lea on 50-97-5278Bmcnpuycgm (Bld) [Mass/Vol]13.8 g/dL12.0-16.0[facility] DublinBlood leukocytes automated count (number/volume)Ordered By: Severo Lea on 03-42-8359EVA (Bld) [#/Vol]8.5 10*3/uL4.5-13.5FUniversity Hospitals Geneva Medical CenterBody fluid albumin measurement (mass/volume)Ordered By: Severo Lea on 88-36-4737Cdifnsf (Body fld) [Mass/Vol]4.2 g/dL3.2-5.5FUniversity Hospitals Geneva Medical CenterColor Auto (U)Ordered By: Severo Lea on 96-11-0760Bumqx (U)YellowYellowSelect Medical [facility] Hospital - DublinCreatinine and Glomerular filtration rate.predicted panel (S/P/Bld)Ordered By: Severo Lea on 02-07-2022 Creatinine [Mass/Vol]0.82 mg/dL0.44-1.03[facility] Eosinophils Auto (Bld) [#/Vol]Ordered By: Severo Lea on 74-93-2331Eullqpvqlhz (Bld) [#/Vol]0.1 10*3/uL0.0-0.7FUniversity Hospitals Geneva Medical CenterEosinophils/100 WBC Auto (Bld)Ordered By: Severo Lea on 21-07-6266Fkqduucdoaq/100 WBC (Bld)0.7 % [facility] DublinErythrocyte distribution width Auto (RBC) [Ratio]Ordered By: Severo Lea on 57-63-6593Hzfharlnwwj distribution width (RBC) [Ratio]14.2 %11.9-15.3FUniversity Hospitals Geneva Medical CenterEstimated glomerular filtration rate (GFR) non- AmericanOrdered By: Severo Lea on 02-07-2022 GFR/1.73 sq M.predicted among non-blacks MDRD (S/P/Bld) [Vol rate/Area]> 60 mL/MinSelect Medical Ohiohealth Rehabilitation Hospital - DublinGlobulin Calc (S) [Mass/Vol]Ordered By: Severo Lea on 60-37-9546Zbanikgr (S) [Mass/Vol]2.4 g/dLSelect Medical Ohiohealth Rehabilitation Hospital - DublinHCG ( test) IA.rapid Ql (U)Ordered By: Severo Lea on 46-29-1926DXY ( test) Ql (U)NegativeSelect Medical Ohiohealth Rehabilitation [facility] - Dublin Hematocrit Auto (Bld) [Volume fraction]Ordered By: Severo Lea on 02-07-2022 Hematocrit (Bld) [Volume fraction]41.5 %36.0-46.0[facility] DublinKetones Auto test strip (U) [Mass/Vol]Ordered By: Severo Lea on 02-07-2022 Ketones (U) [Mass/Vol]TraceNegativeSelect Medical [facility] Rehabilitation Hospital - DublinLaboratory - Chemistry and Chemistry - challengeOrdered By: Severo Lea on 69-17-5146Farqfi [Catalytic activity/Vol]53.0 U/P04-07PprbfzsuqSelect Medical [facility]health Rehabilitation Hospital - DublinLaboratory - Hematology and Cell countsOrdered By: Severo Lea on 63-79-9246Ufyphqpry RBC/100 WBC (Bld) [Ratio]0.0 %0-0.5FUniversity Hospitals Geneva Medical CenterLymphocytes Auto (Bld) [#/Vol]Ordered By: Severo Lea on 53-67-3242Aqviqixeqgz (Bld) [#/Vol] 2.0 10*3/uL1.20-4.8[facility] DublinLymphocytes/100 WBC Auto (Bld)Ordered By: Severo Lea on 15-58-7906Qwbonytmsit/100 WBC (Bld)23.8 % [facility] Auto (RBC) [Entitic mass]Ordered By: Severo Lea on 36-83-4950WME (RBC) [Entitic mass]28.6 pg25.0-35.0[facility] - DublinMCHC Auto (RBC) [Mass/Vol]Ordered By: Severo Lea on 81-35-9407GZIC (RBC) [Mass/Vol]33.3 g/dL31.0-37.0[facility] DublinMCV Auto (RBC) [Entitic vol]Ordered By: Severo Lea on 52-78-9562QLJ (RBC) [Entitic vol] 85.8 bI26-855JoqirjbqqSelect Medical [facility] Rehabilitation Hospital - DublinMonocytes Auto (Bld) [#/Vol] Ordered By: Severo Lea on 12-93-4317Tbdxieucy (Bld) [#/Vol]0.6 10*3/uL0.1-1.00 [facility] DublinMonocytes/100 WBC Auto (Bld)Ordered By: Severo Lea on 01-42-7157Fgjijebob/100 WBC (Bld)7.6 %[facility] Neutrophils Auto (Bld) [#/Vol]Ordered By: Severo Lea on 12-02-4848Aujfrwynncw (Bld) [#/Vol]5.7 10*3/uL1.2-7.7FUniversity Hospitals Geneva Medical CenterNeutrophils/100 WBC Auto (Bld)Ordered By: Severo Lea on 49-26-8902Xawsyqmoglr/100 WBC (Bld)67.3 %[facility] DublinNitrite Test strip Ql (U)Ordered By: Severo Lea on 94-54-8316Qrgtcrg Ql (U)NegativeNegativeSelect Medical [facility] Rehabilitation Hospital - DublinNo Panel InformationOrdered By: Severo Lea on 81-42-9851Hgwbfxfie GFR ()> 60 mL/MinSelect Medical Ohiohealth Rehabilitation Hospital - DublinComment on above: GFR estimated reference range: According to KDOQI guidelines, <60 ml/min/1.73m2 is sufficient todiagnose a patient with chronic kidney disease.Pharmacy Creatinine Clearance (Sajb471.48[facility] DublinPlatelet mean volume Auto (Bld) [Entitic vol]Ordered By: Severo Lea on 57-10-9354Fvztykqp mean volume (Bld) [Entitic vol]8.6 fL6.3-10.7FUniversity Hospitals Geneva Medical Center Platelets Auto (Bld) [#/Vol]Ordered By: Severo Lea on 74-52-0761Ayetmfitm (Bld) [#/Vol]304 10*3/mN352-059GkuoxohuvSelect Medical [facility]health Rehabilitation Hospital - DublinProtein Auto test strip (U) [Mass/Vol]Ordered By: Severo Lea on 38-17-5197Osjsccj (U) [Mass/Vol] NegativeNegativeSelect Medical [facility] Rehabilitation Hospital - DublinProtein [Mass/volume] in Serum or PlasmaOrdered By: Severo Lea on 50-44-8953Qbfzhrw [Mass/Vol]6.6 g/dL6.1-7.9 [facility] DublinRBC Auto (Bld) [#/Vol]Ordered By: Severo Lea on 06-53-6787EKG (Bld) [#/Vol]4.84 10*6/uL4.10-5.10Tr[facility]ull Memorial Hospitalerum or plasma alanine aminotransferase measurement without P-5'-P (enzymatic activiOrdered By: Severo Lea on 08-40-2854QFS No additional P-5'-P [Catalytic activity/Vol]14 U/H25-07UngcfkpkhTrumbull Memorial Hospitalerum or plasma albumin/globulin mass ratioOrdered By: Severo Lea on 02-07-2022 Albumin/Globulin [Mass ratio]1.8 {ratio}[facility] Hospitalerum or plasma alkaline phosphatase measurement (enzymatic activity/volume)Ordered By: Severo Lea on 40-03-9325VHB [Catalytic activity/Vol]46 U/I70-75YjrjrdbbuTrumbull Memorial Hospitalerum or plasma amylase measurement (enzymatic activity/volume)Ordered By: Severo Lea on 63-78-1366Ermcgwk [Catalytic activity/Vol]70 U/D99-973WdyuwohbpTrumbull Memorial Hospitalerum or plasma aspartate aminotransferase measurement (enzymatic activity/volume)Ordered By: Severo Lea on 28-18-5006OKQ [Catalytic activity/Vol]15 U/U29-82JcvanbaugTrumbull Memorial Hospitalerum or plasma calcium measurement (mass/volume)Ordered By: Severo Lea on 58-50-4803Epvynnk [Mass/Vol]9.3 mg/dL8.2-10.2FJ.W. Ruby Memorial Hospitalerum or plasma chloride measurement (moles/volume) Ordered By: Severo Lea on 79-61-1272Flarekur [Moles/Vol]107 mmol/L95-114 [facility] Hospitalerum or plasma glucose measurement (mass/volume)Ordered By: Severo Lea on 43-94-0422Xdsrmjz [Mass/Vol]94 mg/dL 70-100[facility] - DublinComment on above:ADA recommended reference range Random Glucose Reference Range is dependent on time and content of last meal. Glucose of more than 200 mg/dL in a nonstressed, ambulatory subject supports the diagnosis of Diabetes Mellitus.Serum or plasma potassium measurement (moles/volume)Ordered By: Severo Lea on 98-80-9769Ajtrktnyu [Moles/Vol]4.2 mmol/L3.5-5.1FJ.W. Ruby Memorial Hospitalerum or plasma sodium measurement (moles/volume)Ordered By: Severo Lea on 69-36-5009Gnmpvu [Moles/Vol]140 mmol/L 136-146Tr[facility]ull Memorial Hospitalerum or plasma total bilirubin measurement (mass/volume)Ordered By: Severo Lea on 26-23-2441Csiiahlnp [Mass/Vol]0.5 mg/dL0.3-1.2FJ.W. Ruby Memorial Hospitalerum or plasma total carbon dioxide measurement (moles/volume)Ordered By: Severo Lea on 02-07-2022 CO2 [Moles/Vol]25.1 mmol/L22.0-30.0Tr[facility] Hospitalerum or plasma urea nitrogen measurement (mass/volume)Ordered By: Severo Lea on 66-00-7078Bycu nitrogen [Mass/Vol]11 mg/dL9-23[facility] Specific gravity Auto test strip (U) [Rel density]Ordered By: Severo Lea on 38-52-2391Sxxdlvfb gravity (U) [Rel density]1.0271.001-1.030[facility] DublinUrine clarity by refractometry automatedOrdered By: Severo Lea on 52-08-1263Znzvkzm Refractometry automated (U)ClearClearFUniversity Hospitals Geneva Medical CenterUrine glucose measurement by automated test strip (mass/volume) Ordered By: Severo Lea on 17-36-0870Hkpcprg Auto test strip (U) [Mass/Vol]Normal mg/dLNormAshtabula County Medical CenterUrine hemoglobin detection by automated test stripOrdered By: Severo Lea on 27-29-6440Fgshupymlv Auto test strip Ql (U)NegativeNegRegency Hospital Cleveland WestUrine leukocyte esterase detection by automated test stripOrdered By: Severo Lea on 02-07-2022 Leukocyte esterase Auto test strip Ql (U)NegativeNegRegency Hospital Cleveland WestUrobilinogen Auto test strip (U) [Mass/Vol]Ordered By: Severo Lea on 95-43-3628Jcohdjgifwkt (U) [Mass/Vol]Normal mg/dLNormAshtabula County Medical CenterpH Auto test strip (U)Ordered By: Severo Lea on 28-93-0295eI (U) 6.0 [pH]5.0-9.0[facility] DublinCOVID-19 SOFIAOrdered By: Augustin Morris on 97-46-1476HYYT-CoV+SARS-CoV-2 (COVID-19) Ag IA.rapid Ql (Resp)Negative NegativeSelect Medical Ohiohealth Rehabilitation Hospital - DublinComment on above:This is a duplicate Ann SARS Antigen (DEMETRIUS) result to be used for statistical tracking purpose only .No Panel InformationOrdered By: Augustin Morris on 98-45-9079JVLG Antigen (LFIA) [facility] Vital Signs Date TimeVital SignValuePerforming NirnmgggrCkflijhm57-58-2092 11:11-0400 Diastolic blood jyzvzoci51 mm[Hg]Curtis Flores DO Work Phone: [facility]OShriners [facility] for ChildrenBnxnplowqm15-95-4955 11:11-0400Systolic blood iuldubax856 mm[Hg]Curtis Sandra DO Work Phone: [facility] SystemNewekmjnea48-17-7616 11:05-0400Body mass index (BMI) [Ratio]23.77 kg/m4Dodii Sandra DO Work Phone: [facility] SystemXnwugledth33-48-8771 11:05-0400Body eabbmm72.82 kgCorey Sandra DO Work Phone: [facility] SystemRsgkdnveql45-15-2075 13:28-0400Diastolic blood evpfiixx39 mm[Hg]Melia Warchol CHANGE OVER-C Work Phone: [facility]10-17-2025 13:28-0400 Heart rate95 /minMelia Warchol CHANGE OVER-C Work Phone: [address] [place], [place] 06[address]10-17-2025 13:28-0400 Respiratory rate20 /minMelia Warchol CHANGE OVER-C Work Phone: [address] [place], [place] [address]10-17-2025 13:28-0400 SaO2% (BldA) [Mass fraction]97 %Melia Warchol CHANGE OVER-C Work Phone: [facility]10-17-2025 13:28-0400 Systolic blood oytbacpo969 mm[Hg]Melia Warchol CHANGE OVER-C Work Phone: [facility]10-17-2025 09:42-0400 Body krduzc659.56 cmAcindi Warchol CHANGE OVER-C Work Phone: [facility]10-17-2025 09:42-0400 Body crhmqnqayqw20.4 [degF]Melia Warchol CHANGE OVER-C Work Phone: [facility]10-17-2025 09:42-0400 Body sjholm71 kgMelia Warchol CHANGE OVER-C Work Phone: [facility]06-03-2025 09:25-0400 Body mass index (BMI) [Ratio]25.06 kg/v4Ogvib Sandra DO Work Phone: [phone] [place], [place] [address]Eggmkiexeb78-42-5056 09:25-0400Body .22 kgCorey Sandra DO Work Phone: [phone] [place], [place] [address]Tfybiisduo95-44-4209 09:25-0400Diastolic blood kuutndoq90 mm[Hg]Curtis Sandra DO Work Phone: [phone])344-[facility] SystemBezeulyidk47-30-1785 09:25-0400Systolic blood jczcybbi748 mm[Hg]Curtis Sandra DO Work Phone: [phone] [place], [place] [address]Pjkugzxgjy68-10-0978 14:50-0400Body mass index (BMI) [Ratio]25.15 kg/h3Rjgss Sandra DO Work Phone: [phone] [place], [place] [address]Eucypwcpdu21-99-8273 14:50-0400Body .45 kgCorey Sandra DO Work Phone: [phone] [place], [place] [address]Yuxmzekizb88-28-1634 14:50-0400Diastolic blood mm[Hg]Curtis Sandra DO Work Phone: [phone] [place], [place] [address]Kingesmewt77-16-0862 14:50-0400Systolic blood yvgqeold913 mm[Hg]Curtis Sandra DO Work Phone: [phone] [place], [place] [address]Hesetfxskd89-44-7005 10:02-0400Body mass index (BMI) [Ratio]25.3 kg/s1Dfioh Sandra DO Work Phone: [phone] [place], [place] [address]Kblzsmcgjc64-84-0392 10:02-0400Body utplen94.86 kgCorey Sandra DO Work Phone: [phone] [place], [place] [address]Vwkjsykaoh28-44-7052 10:02-0400Diastolic blood lxpewjds97 mm[Hg]Curtis Sandra DO Work Phone: [phone] [place], [place] [address]Bdaqshwmfx63-24-8815 10:02-0400Systolic blood cngkytax778 mm[Hg]Curtis Sandra DO Work Phone: [phone] [place], [place] [address]Ljlskyxnfi24-13-3403 13:12-0500Body mass index (BMI) [Ratio]26.33 kg/m2Melia DODSON Work Phone: [facility] SystemLhhlefuygm47-77-2120 13:12-0500Body corjsp93.58 kgAmy Stacy PA Work Phone: [facility] SystemPgxoxxursa34-77-7744 13:12-0500Diastolic blood ukhxvbyk96 mm[Hg]Melia Douglas PA Work Phone: [facility] SystemXleowysrxo93-18-9590 13:12-0500Systolic blood mm[Hg]Melia Douglas PA Work Phone: [phone])806-[facility] SystemAaswkhreju33-00-1123 08:57-0500Body lagpzt114.56 cmAmy Warchol CHANGE OVER-C Work Phone: [phone]02-10-2025 08:57-0500 Body mass index (BMI) [Ratio]25.3 kg/m2Amy Warchol CHANGE OVER-C Work Phone: [phone])135-[address] [place], [place] [address]02-10-2025 08:57-0500 Body hkidus19 kgAmy Warchol CHANGE OVER-C Work Phone: [phone]02-03-2025 10:16-0500 Body mass index (BMI) [Ratio]26.06 kg/m2Amy Douglas PA Work Phone: [phone])542-[facility] SystemTuswwgqbyg57-49-1260 10:16-0500Body lenlla32.86 kgAmy Stacy PA Work Phone: [phone])037-[facility] SystemRmigbgvvpt58-14-1198 10:16-0500Diastolic blood fmwtwdev07 mm[Hg]Melia Douglas PA Work Phone: [phone])324-[address] [place], [place] [address]Ycurummoao91-82-2934 10:16-0500Systolic blood omdpuaqu448 mm[Hg]Melia Stacy PA Work Phone: [phone])573-[facility] HealthLake [facility] Health SystemCbswbhhaud23-69-0382 22:42-0500Diastolic blood riwpsewb74 mm[Hg]Melia Warchol CHANGE OVER-C Work Phone: [phone]01-29-2025 22:42-0500 Heart rate85 /minAmy Warchol CHANGE OVER-C Work Phone: [phone]01-29-2025 22:42-0500 Respiratory rate20 /minMelia Warchol CHANGE OVER-C Work Phone: [phone]01-29-2025 22:42-0500 SaO2% (BldA) [Mass fraction]100 %Melia Warchol CHANGE OVER-C Work Phone: [phone])[facility]36[facility]01-29-2025 22:42-0500 Systolic blood pjqjevpe178 mm[Hg]Melia Warchol CHANGE OVER-C Work Phone: [phone] [place], [place] [address]001-29-2025 19:50-0500 Body bxjaly637.56 cmAcindi Warchol CHANGE OVER-C Work Phone: [phone] [place], [place] [address]001-29-2025 19:50-0500 Body usumffmrqeu77.5 [degF]Melia Warchol CHANGE OVER-C Work Phone: [phone] [place], [place] 7883001-29-2025 19:50-0500 Body boqqwk23.7 kgMelia Warchol CHANGE OVER-C Work Phone: [phone] [place], [place] 7883012-16-2024 10:32-0500 Body xrokvq350.6 cmAcindi Warchol CHANGE OVER Work Phone: [facility] SystemTicldmucyt92-38-7405 10:32-0500Body mass index (BMI) [Ratio]26.02 kg/m2Melia Warchol CHANGE OVER Work Phone: [facility] SystemCedwkdvshy51-96-6939 10:32-0500Body temperature 97.2 [degF]Melia Warchol CHANGE OVER Work Phone: [facility] SystemRylqiloawz91-51-4317 10:32-0500Body cfvnza78.77 kgMelia Warchol CHANGE OVER Work Phone: [facility] SystemGriqwjzikt76-49-8297 10:32-0500Diastolic blood gsgbgjzo49 mm[Hg]Melia Warchol CHANGE OVER Work Phone: [facility] SystemNezdzybfjn13-24-2113 10:32-0500Heart rate87 /min Melia Warchol CHANGE OVER Work Phone: [facility]USSh[facility] Hospitals for ChildrenGfxvfjakua49-87-5519 10:32-6725HlV3% (BldA) [Mass fraction]99 %Melia Warchol CHANGE OVER Work Phone: [facility] SystemGebsvzxynp08-56-4151 10:32-0500Systolic blood mm[Hg]Melia Warchol CHANGE OVER Work Phone: [facility] SystemNplqxxthui80-02-1773 10:31-0500Body zaicry486.8 cmAcindi Warchol CHANGE OVER Work Phone: [facility] SystemGwvotazzxf03-26-8801 10:31-0500Body mass index (BMI) [Ratio]25.05 kg/m2Amy Warchol CHANGE OVER Work Phone: [place] [address]Rsyfiqlojm74-21-1072 10:31-0500Body .22 kgMelia Warchol CHANGE OVER Work Phone: [facility] SystemSgxhscxzci69-15-8086 10:31-0500Diastolic blood qdiazolv08 mm[Hg]Melia Warchol CHANGE OVER Work Phone: [facility] SystemXqlswwgjex36-93-8277 10:31-0500Heart rate90 /min Melia Warchol CHANGE OVER Work Phone: [place] [address]Eonfbficvy87-71-2677 10:31-0500Respiratory rate18 /minMelia Warchol CHANGE OVER Work Phone: [facility] SystemEkdwesfolg52-62-6408 10:31-9677DiY4% (BldA) [Mass fraction]98 %Melia Warchol CHANGE OVER Work Phone: [facility] SystemQstbklbvbr77-66-3475 10:31-0500Systolic blood fozvozya964 mm[Hg]Melia Warchol CHANGE OVER Work Phone: [facility] SystemNiuuystmwo09-84-2198 14:33-0400Body mfjluv769.8 cmAcindi Warchol CHANGE OVER Work Phone: [facility] SystemLdrjwnlljn69-96-8110 14:33-0400Body mass index (BMI) [Ratio]25.45 kg/m2Amy Warchol CHANGE OVER Work Phone: [facility] SystemDysovfavkv97-87-4649 14:33-0400Body temperature 98.2 [degF]Melia Warchol CHANGE OVER Work Phone: [phone] SystemGnvifdxrre08-92-1938 14:33-0400Body .31 kgMelia Mantilla CHANGE OVER Work Phone: [facility] SystemCzowtvmztg35-10-8894 14:33-0400Diastolic blood tsachxcd68 mm[Hg]Melia Mantilla CHANGE OVER Work Phone: [facility] SystemWfmdocqqad94-88-0557 14:33-0400Heart rate87 /min Melia Costachol CHANGE OVER Work Phone: [facility] SystemQotakhhqqb90-48-8530 14:33-0400Respiratory rate18 /minMelia Mantilla CHANGE OVER Work Phone: [facility] SystemDficihhegl47-28-7750 14:33-8632WoV2% (BldA) [Mass fraction]100 %Melia Mantilla CHANGE OVER Work Phone: [facility] SystemXlfuehoegp57-47-7338 14:33-0400Systolic blood bhlbacrp120 mm[Hg]Melia Mantilla CHANGE OVER Work Phone: [facility] SystemIeypfwokjh27-99-5418 20:47-0400Body .29 cm Joe Lombardo Work Phone: [phone]05-22-2022 20:47-0400 Body mass index (BMI) [Percentile] Per age and sex79.7 %MD Joe Lombardo Work Phone: [phone]05-22-2022 20:47-0400 Body mass index (BMI) [Ratio]24.7 kg/m2MD Joe Lombardo Work Phone: [phone]05-22-2022 20:47-0400 Body imnhgc65.41 kgMD Joe Lombardo Work Phone: [phone]05-22-2022 20:46-0400 Body ffnvngtydsj39.6 [degF]MD Joe Lombardo Work Phone: [phone]05-22-2022 20:46-0400 Diastolic blood mm[Hg]MD Joe Lombardo Work Phone: [phone]05-22-2022 20:46-0400 Heart rate95 /minMD Joe Lombardo Work Phone: [facility]05-22-2022 20:46-0400 Respiratory rate18 /minMD Joe Lombardo Work Phone: [facility]05-22-2022 20:46-0400 SaO2% (BldA) [Mass fraction]100 %MD Joe Lombardo Work Phone: [facility]05-22-2022 20:46-0400 Systolic blood sqibykjd375 mm[Hg]MD Joe Lombardo Work Phone: [facility] Encounters Encounter DateEncounter TypeCare ProviderFacilityStart: 07-16-2025 End: 34-59-1533Orgcfd flowsheetCorey Sandra DO Work Phone: noms [place] OBGYNStart: 07-16-2025 End: 17-50-8670Hvcwqf flowsheetCorey Sandra DO Work Phone: [facility] [place] OBGYNStart: 07-16-2025 End: 51-48-8581Icvlzs outpatient visit 15 minutesCorey Sandra DO Work Phone: [facility] [place] OBGYNComment on above:Positive urine test ([facility]); Follow-up visit after miscarriage ([facility])Start: 07-16-2025 End: 63-01-8383iviamkneyjTBWZY FAZIONot AvailableStart: 07-05-2025 End: 49-82-9735Xxajxmvfd department [facility] CHANGE OVER-C Work Phone: [phone]-Uwfstslgo Room Work Phone: Start: 06-26-2025 End: 84-03-3903Lmtpczizs Result EncounterCorey Sandra DO Work Phone: noms External Department UnsolicitedStart: 06-26-2025 End: 51-46-6192Rbnylkgzb Result EncounterCorey Sandra DO Work Phone: noms External Department UnsolicitedStart: 06-24-2025 End: 64-09-5805Xazcxpmyb Result EncounterCorey Sandra DO Work Phone: noms External Department UnsolicitedStart: 06-24-2025 End: 17-59-0575Bcgkxgrcg Result EncounterCorey Sandra DO Work Phone: noms External Department UnsolicitedStart: 04-10-2025 End: 49-12-5099vbivhwedeyPkn Warchol CHANGE OVER-C Work Phone: [facility] Work Phone: Start: 04-10-2025 End: 16-12-9778Bkahsns encounter procedureThjuwan Montilla MD-[facility] Work Phone: Start: 02-19-2025 End: 25-92-0036Mugumz flowsheetCorey Sandra DO Work Phone: noms BCP OBStart: 02-19-2025 End: 45-95-5102Anxxxf flowsheetCorey Sandra DO Work Phone: noms BCP OBStart: 02-19-2025 End: 73-98-0176Nxgabo outpatient visit 15 minutesCorey Sandra DO Work Phone: noms BCP OBComment on above:Encounter to discuss test results; History of ovarian cyst; Dermoid cystStart: 02-19-2025 End: 01-25-4734jdwltjfdgsWVXWM FAZIONot AvailableStart: 02-05-2025 End: 03-33-0259fvrtxwfmkhFZR RAMEYNot AvailableStart: 01-15-2025 End: 57-77-5608ctaagapraqGYPUK FAZIONot AvailableStart: 01-15-2025 End: 73-33-2070Tqcxkk follow up visit related to original pxCorey Sandra DO Work Phone: noms BCP OBComment on above:Postoperative follow-up Start: 01-15-2025 End: 90-02-1240Bhaimg flowsheetCorey Sandra DO Work Phone: NOSF BCP OBStart: 01-15-2025 End: 69-62-9810Hhkoll flowsheetCorey Sandra DO Work Phone: NOIF BCP OBStart: 12-28-2024 End: 28-19-2988Mabmcozdy Result EncounterCorey Sandra DO Work Phone: NOM[facility] External Department UnsolicitedStart: 12-28-2024 End: 87-93-4804Rrlirpdlw Result EncounterCorey Sandra DO Work Phone: [facility]OM[facility] External Department UnsolicitedStart: 12-27-2024 End: 52-03-2185Hpkvwqtks Result EncounterCorey Sandra DO Work Phone: noMS External Department UnsolicitedStart: 12-27-2024 End: 21-20-6885Mwhyxlzup Result EncounterCorey Sandra DO Work Phone: [facility]OM[facility] External Department UnsolicitedStart: 12-20-2024 End: 28-18-2770Jktydb flowsheetCorey Sandra DO Work Phone: NOMS BCP OBStart: 12-20-2024 End: 41-14-9263Enhpgb flowsheetCorey Sandra DO Work Phone: NOXN BCP OBStart: 12-20-2024 End: 15-32-2494Iribqdbfq Result EncounterCorey Sandra DO Work Phone: [facility] External Department UnsolicitedStart: 12-20-2024 End: 68-96-0115hyxyuxkwgxWRVMP FAZIONot AvailableStart: 12-20-2024 End: 20-94-7163Dwwybf outpatient visit 15 minutesCorey Sandra DO Work Phone: [facility] OBComment on above:Encounter to discuss test results; Complex ovarian cystStart: 12-18-2024 End: 15-41-6790Xtoulcetw Result EncounterAmy Stacy DODSON Work Phone: NOM[facility] External Department UnsolicitedStart: 12-18-2024 End: 27-89-5757Tnnhibbct Result EncounterMelia Stacy DODSON Work Phone: noms External Department UnsolicitedStart: 12-12-2024 End: 74-96-2371Xwlbqzz encounter procedureMelia Warchol CHANGE OVER-C Work Phone: [facility]MRI [address] Work Phone: Start: 12-12-2024 End: 73-88-0533vdifalophaWvm Warchol CHANGE OVER-C Work Phone: [facility] Work Phone: Start: 11-22-2024 End: 96-07-4731Aolsuojly encounterMelia Annalee CHANGE OVER Work Phone: noms SEP FMStart: 11-21-2024 End: 43-36-3202Eregyg flowsheetMelia DODSON Work Phone: noms BCP OBStart: 11-21-2024 End: 06-86-8839Iflzmb flowsheetMelia DODSON Work Phone: noms BCP OBStart: 11-21-2024 End: 60-65-0617Ajmjuci encounter procedureMelia DODSON Work Phone: noms HealthcareStart: 11-21-2024 End: 15-82-2672Uztbcnqy preventive med est patient 18-39 yrsMelia DODSON Work Phone: noms BCP OBComment on above:Well woman exam with routine gynecological exam; Complex ovarian cyst; Nausea; Encounter for initial prescription of contraceptive pillsStart: 11-21-2024 End: 68-63-1869btpahuwmhlTKF STACYNot AvailableStart: 11-20-2024 End: 52-57-9673Lhnuazv encounter procedureAmy Warchol CHANGE OVER-C Work Phone: [facility] [place] Work Phone: Start: 11-20-2024 End: 75-22-3883xdqcedxvinJtb Warchol CHANGE OVER-C Work Phone: [facility] Work Phone: Start: 11-09-2024 End: 56-53-8335Qcsjvdswe encounterAmy Warchol CHANGE OVER Work Phone: noms SEP FMStart: 11-06-2024 End: 50-81-5248wcvnqekaupDXD RAMEYNot AvailableStart: 10-29-2024 End: 19-98-8617Khhgstn encounter procedureAmy Warchol CHANGE OVER-C Work Phone: [facility] Work Phone: Start: 10-22-2024 End: 62-66-5075Vvjswt outpatient visit 15 minutesAmy Stacy DODSON Work Phone: noms BCP OBComment on above:Abdominal cramping; Cyst of left ovaryStart: 10-22-2024 End: 86-62-6562lrtsktxmhbLHG RAMEYNot AvailableStart: 10-17-2024 End: 96-13-5626Lnvjvmina department patient visitAmy Warchol CHANGE OVER-C Work Phone: [facility]-Emergency Room Work Phone: Start: 10-15-2024 End: 99-44-7567Cewgkumdh encounterAmy Warchol CHANGE OVER Work Phone: noms SEP FMStart: 09-24-2024 End: 85-15-2813Ndngzghqo encounterAmy Warchol CHANGE OVER Work Phone: noms SEP FMStart: 09-03-2024 End: 48-83-6088Msqmzx flowsheetAmy Warchol CHANGE OVER Work Phone: noms SEP FMStart: 09-03-2024 End: 37-10-4721Rapqhi flowsheetAmy Warchol CHANGE OVER Work Phone: noms SEP FMStart: 09-03-2024 End: 45-39-6089hxschnrtrqXOF WARCHOLNot AvailableStart: 09-03-2024 End: 06-53-6677Lxpiuk outpatient visit 25 minutesAmy Warchol CHANGE OVER Work Phone: noms SEP FMComment on above:Chronic midline low back pain without sciatica (Primary Dx); Lumbar radiculopathyStart: 08-28-2024 End: 38-41-0701Jchbuhdve encounterMelia Mantilla CHANGE OVER Work Phone: noms SEP FMStart: 08-23-2024 End: 22-55-5770klqozxbmzbRty Warchol CHANGE OVER-C Work Phone: [facility] Work Phone: Start: 08-23-2024 End: 64-92-4060Hvymzmitqc RecurringMelia Mantilla CHANGE OVER-C Work Phone: [facility] Start: 07-27-2024 End: 49-37-0620Lcygva flowsheetMelia Mantilla CHANGE OVER Work Phone: noms SEP FMStart: 07-27-2024 End: 58-58-2829Bkquia flowsheetMelia Mantilla CHANGE OVER Work Phone: noms SEP FMStart: 07-27-2024 End: 74-42-8181hpjqqspmznDTE ANNALEENot AvailableStart: 07-27-2024 End: 50-21-1731Yaphqw outpatient visit 25 minutesMelia Mantilla CHANGE OVER Work Phone: noms SEP FMComment on above: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); Person consulting for explanation of examination or test finding; Bilateral sacroiliitis (CMS/HCC)Start: 07-25-2024 End: 42-34-7662tsqrugfzizBX-C Melia Mantilla Work Phone: [facility] Work Phone: Start: 07-25-2024 End: 77-79-6711Ocwamxo encounter procedureNP-C Melia Mantilla Work Phone: [facility]-X[facility] [place] Work Phone: Start: 06-18-2024 End: 36-17-9598Njgiyc outpatient visit 25 minutesMelia Mantilla CHANGE OVER Work Phone: noms SEP FMComment on above:Adult general medical examination (Primary Dx); Muscle cramping; Bilateral sacroiliitis (CMS/HCC); Left lumbar radiculopathy; 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-sided sciaticaStart: 06-18-2024 End: 57-35-9277Ruxyhfr encounter statusMelia Mantilla CHANGE OVER Work Phone: noms HealthcareStart: 06-18-2024 End: 58-16-5587Gqrgxi flowsheetMelia Mantilla CHANGE OVER Work Phone: noms SEP FMStart: 06-18-2024 End: 99-00-5662Wrsywa flowsheetMelia Mantilla CHANGE OVER Work Phone: noms SEP FMStart: 11-04-2023 End: 78-02-5416dsimeuuuurOC Joe Lombardo Work Phone: [facility] Work Phone: Start: 11-04-2023 End: 67-48-8385Jvjbdgfm ReferredMD Joe Lombardo Work Phone: [facility]LAB Path Spec [facility] HospStart: 66-17-0327Mmxjauwon Result EncounterCorey Sandra DO Work Phone: noms External Department UnsolicitedStart: 11-03-2023 Clinisync Result EncounterCorey Sandra DO Work Phone: noms External Department UnsolicitedStart: 01-10-2023 End: 30-86-6205rkftuzjaelML JOE HOY .Facility:G1Sgubp: 11-12-2022 End: 61-86-1222vweouytcvcVZ CURTIS SANDRA .Facility:K3Pqbxd: 39-59-2319Pqlmbuqnb for other preprocedural examinationDR CURTIS SANDRA .[facility]Start: 11-01-2022 End: 77-70-3626hzoyzdjzhuHI CURTIS SANDRA .Facility:G5Iqtcw: 11-01-2022 End: 63-99-2695Rtoeuxbfg for other preprocedural examinationDR CURTIS SANDRA . Facility:J9Yxnvc: 10-19-2022 End: 73-30-3100pihjeahjqpUA CURTIS SANDRA .Facility:W7Ggbuo: 10-15-2022 End: 43-78-3859hqgzqwqnyvZP CURTIS SANDRA .Facility:Y3Cwvoe: 10-06-2022 End: 55-90-2979zoualudujwWE CURTIS SANDRA .Facility:C3Oqqut: 05-04-2022 End: 22-38-8555wdyuteuecpQY REBECCA GIBBS .Facility:P4Pqmqu: 02-07-2022 End: 05-04-0239Teseclkdh department patient visitMD Joe Lombardo Work Phone: [facility]-Emergency RoomStart: 11-16-2021 End: 34-52-0144Cwvvthl encounter procedureMD Joe Lombardo Work Phone: [facility]-[place] Swab Procedures DateProcedureProcedure DetailPerforming ClinicianStart: 89-90-7054Iqrtgtkrijlbv of growth of fungiAmy Warchol CHANGE OVER-C Work Phone: Start: 55-38-3059Fyihoaoxogc vaginalis detectionAmy Warchol CHANGE OVER-C Work Phone: Start: 87-39-9199Jtcpyiib screenAmy RameyStart: 25-79-8136Rgaehznffd ultrasound of gravid uterusAmy Warchol CHANGE OVER-C Work Phone: Start: 95-66-5740Gariwrrxuctu obstetric ultrasonographyAmy Warchol CHANGE OVER-C Work Phone: Start: 51-07-7351TQU PREG QUANT HCGCorey Sandra DO Work Phone: Start: 00-12-4545TZS PREG QUANT HCGCorey Sandra DO Work Phone: Start: 81-12-3458BEV QUALITATIVE*Curtis Sandra DO Work Phone: Start: 27-99-4438NIU CBC WITH AUTO DIFFCorey Sandra DO Work Phone: Start: 90-35-1268JZV LDHCorey Sandra DO Work Phone: Start: 44-90-2907FR PELVIS W/ TRANSVAGINALAmy Stacy DODSON Work Phone: Start: 83-98-3777SQ lumbar spine wo conMelia Annalee CHANGE OVER-C Work Phone: Start: 16-70-6378Dyqdwwfpnxujizqg antigen ceaMelia Kumar Comment on above:Result Comment: Serial tumor marker results determined by assays using different manufacturers or methods may not be comparable. [facility] health care facilities inspector and method: [employer] UNICEL DXI, 2 SITE IMMUNOENZYMATIC ?SANDWICH? ASSAY. PERFORMED BY: [place] [id number] PATHOLOGIST SOUND EFFECTS SUPERVISOR CORNELIUS MARK M.D.Performed By: #### CA125, LDI, AFPTM #### [facility] , #### CEA, HCGQNT #### [place] [address] USAStart: 81-73-4921Ztzrv test visual color cmprsn methsAmy Stacy DODSON Work Phone: Start: 42-92-4435Esgjn X-ray of sacroiliac jointNP-C Melia Mantilla Work Phone: Start: 77-10-2023K-ray of lumbar spine, two or three viewsNP-C Melia Mantilla Work Phone: Start: 66-74-9013AQR LDHCorey Sandra DO Work Phone: Start: 13-96-5481XJXO Antigen (LFIA)MD Joe Lombardo Work Phone: Plan of Treatment DateCare ActivityDetailAuthorStart: 42-10-6313CKtW/Tdap/Td Vaccines (7 - Td or Tdap)DTaP/Tdap/Td Vaccines (7 - Td or Tdap)[facility] System[facility]: 08-21-2025 End: 81-37-4880Bpbvsyrrtmfq / ancillary services managementNOMS BCP OBStart: 07-16-2025 End: 55-79-9844fOI, quantitative, pregnancyhCG, quantitative, Lab Routine Positive urine test ([facility]) Expected: 07/16/2025 (Approximate), Expires: 01/14/2026[facility] Work Phone: comment on above:Expected: 07/16/2025 (Approximate), Expires: 01/14/2026Start: 07-16-2025 End: 54-74-2278Dodwlpl encounter emdjfgqya56/28/2025 10:50 AM EDT Office Visit GEOR[place]IA HERNANDEZN [address] [place] [address] Curtis Flores DO [address] [place], [place] [id number] ArrivedNOMS [place] OBGYNComment on above:ArrivedStart: 12-79-2965Xndtufhmf/GC DNA (PCR)Chlamydia/GC DNA (PCR) [facility]: 22-17-8425Tisttfu CultureGenital Culture [facility] Hospitaltart: 25-95-2831ShhhzztzuTrumbull Memorial Hospitaltart: 28-37-3317NEWRW-19 Vaccine ( season)COVID-19 Vaccine ( season)NOM HealthcareStart: 91-91-3009Lxqfnmkmh vaccinationNOWI HealthcareStart: 02-19-2025 End: 10-87-5220WA PelvisUS Pelvis w/ TV Imaging Routine History of ovarian cyst Dermoid cyst Expected: 02/19/2025, Expires:08/21/2025[facility] Work Phone: Comment on above:Expected: 02/19/2025, Expires: 08/21/2025Start: 02-19-2025 End: 51-55-0457Nfwjybr encounter eyuxzoykq63/03/2025 9:40 AM EDT Office Visit [facility] [address] [place] [address] Curtis Flores, DO [address] [place] [address] [facility] OBComment on above:ArrivedStart: 02-05-2025 End: 65-56-6997Aiczcfjpiicc / ancillary services piizhvzkbm15/20/2025 1:00 PM EDT Ancillary Procedure [facility] [address] [place] [address] [phone] BCP OBStart: 01-15-2025 End: 43-17-9885Lvbfqip encounter jduqawsoh43/29/2025 2:40 PM EDT Office Visit [facility] [address] [place] [address] Curtis Flores, DO [address] [place] [address] [facility] OBStart: 39-78-7083Lahexfjlm vaccination Influenza Vaccine (#1)NOMS HealthcareComment on above:Postponed from 05/20/2024 (Patient Refused)Start: 12-20-2024 End: 09-00-5461XZM tumor markerAFP tumor marker Lab Routine Complex ovarian cyst Expected: 12/20/2024, Expires: 12/20/2025NOW[facility] HealthcareComment on above: Expected: 12/20/2024, Expires: 12/20/2025Start: 12-20-2024 End: 77-28-3854XZ 125CA 125 Lab Routine Complex ovarian cyst Expected: 12/20/2024, Expires: 12/20/2025[facility] HealthcareComment on above:Expected: 12/20/2024, Expires: 12/20/2025Start: 12-20-2024 End: 07-22-0154Newmjqysfliekefw Ag [Mass/volume] in Serum or PlasmaCEA Lab Routine Complex ovarian cyst Expected: 12/20/2024, Expires: 12/20/2025NOMS HealthcareComment on above:Expected: 12/20/2024, Expires: 12/20/2025Start: 12-20-2024 End: 19-31-0432VMC, tumor markerHCG, tumor marker Lab Routine Complex ovarian cyst Expected: 12/20/2024 (Approximate), Expires: 12/20/2025[facility] Comment on above:Expected: 12/20/2024 (Approximate), Expires: 12/20/2025Start: 12-20-2024 End: 33-68-5120Ougaxhk dehydrogenase, isoenzymesLactate dehydrogenase, isoenzymes Lab Routine Complex ovarian cyst Expected: 12/20/2024, Expires: [facility] Work Phone: comment on above:Expected: 12/20/2024, Expires: 12/20/2025Start: 12-20-2024 End: 76-26-9992MG PelvisUS Pelvis w/ TV Imaging Routine Complex ovarian cyst Expected: 12/20/2024, Expires: 12/20/2025NOMS HealthcareComment on above: Expected: 12/20/2024, Expires: 12/20/2025Start: 12-20-2024 End: 94-12-7412Pstdwov encounter zkxseswfy33/03/2025 9:40 AM EDT Office Visit [facility] [address] [place] [address] Curtis Flores, DO [address] [place] [address] NOMS BCP OBStart: 12-18-2024 End: 23-92-8086Jrfrenicsdww / ancillary services eodiydnmqa64/01/2025 8:00 AM EDT Ancillary Procedure [facility] [address] [place] [address] NOMS BCP OBStart: 11-21-2024 End: 96-38-0834XY PelvisUS Pelvis w/ TV Imaging Routine Complex ovarian cyst Expected: 11/21/2024, Expires: 11/21/2025NOMS HealthcareComment on above: Expected: 11/21/2024, Expires: 11/21/2025Start: 11-21-2024 End: 37-47-3429Tdbkdns encounter procedureNOMS [facility] OBComment on above:Arrived Start: 27-10-5609IuxqizbveTrumbull Memorial Hospitaltart: 11-12-2024 End: 21-12-0996MY Lumbar spine WO contrastMR lumbar spine wo contrast Imaging Routine 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-sided sciatica Left lumbar radiculopathy Expected: 11/12/2024, Expires: 11/12/2025[facility] Work Phone: Comment on above:Expected: 11/12/2024, Expires: 11/12/2025Start: 11-06-2024 End: 80-52-6185Mwbfmgeynzro / ancillary services /18/2025 1:00 PM EST Ancillary Procedure [facility] [address] [place] [address] NOMS BCP OBStart: 10-22-2024 End: 08-71-3560YB PelvisUS Pelvis w/ TV Imaging Routine Abdominal cramping Cyst of left ovary Expected: 10/22/2024, Expires: 10/22/2025[facility] Work Phone: comment on above:Expected: 10/22/2024, Expires: 10/22/2025Start: 48-86-1483Clqhxhzzg vaccinationInfluenza Vaccine (#1)NOMS HealthcareComment on above:Postponed from 05/20/2024 (Patient Refused)Start: 09-03-2024 End: 71-73-2444Rrcugsz encounter grtviosod06/16/2024 10:20 AM EST Office Visit [facility] [address] [place] [id number] Melia Mantilla, CHANGE OVER [address] [place] [address] NOMS SEP FMStart: 07-02-2024 End: 09-29-2931Umxqctt encounter gfbdykbbf45/14/2024 2:40 PM EDT Office Visit [facility] [address] [place] [address] Melia Mantilla, CHANGE OVER [address] [place] [address] [facility] FMStart: 06-18-2024 End: 98-80-2739Axyyxvu encounter pugrzzarf18/30/2024 2:20 PM EDT Office Visit [facility] [address] [place] [address] Melia Mantilla NP [address] [place] [address] [facility] FMComment on above:ArrivedStart: 46-76-2998Aoywimkyr vaccinationInfluenza Vaccine (#1)NOMS HealthcareStart: 70-27-6091Leuaclzzwofvv B Vaccine (1 of 2 - Standard)Meningococcal B Vaccine (1 of 2 - Standard)NOMS HealthcareStart: 80-04-8825OSV Vaccines (1 - 3-dose series)HPV Vaccines (1 - 3- dose series)NOM HealthcareBacteria identified in Genital specimen by Aerobe cultureSelect Medical [facility] Hospital [facility] DublinCB W Auto Differential panel - BloodCBC auto differential Lab Routine Adult general medical examination Ordered: 06/18/2024[facility] HealthcareComment on above:Ordered: 06/18/2024omprehensive metabolic 2000 panel - Serum or PlasmaComprehensive metabolic panel Lab Routine Adult general medical examination Ordered: 06/18/2024[facility] HealthcareComment on above:Ordered: 4Cytology Cervical or vaginal smear or scraping studyPap Smear Pathology and Cytology Routine Well woman exam with routine gynecological exam Ordered: 11/21/2024[facility] Work Phone: Comment on above:Ordered: 11/21/2024Magnesium [Mass/volume] in Serum or PlasmaMagnesium Lab Routine Muscle cramping Ordered: 06/18/2024[facility] HealthcareComment on above:Ordered: 06/18/2024MR Lumbar spine WO contrastMR lumbar spine wo contrast Imaging Routine Chronic midline low back pain without sciatica Lumbar radiculopathy Ordered: 09/03/2024[facility] Healthcare Work Phone: Comment on above:Ordered: 4Patient Education [facility] Work Phone: [facility] Work Phone: XR Lumbar spine 2 or 3 ViewsXR lumbar spine 2 or 3 views Imaging Routine Left lumbar radiculopathy 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-sided sciatica Ordered: 06/18/2024[facility] Healthcare Work Phone: Comment on above:Ordered: 06/18/2024XR Sacroiliac Joint 3 ViewsXR sacroiliac joints 3+ views Imaging Routine Left lumbar radiculopathy Chronic left-sided low backpain with left-sided sciatica Ordered: 06/18/2024[facility] HealthcareComment on above:Ordered: 06/18/2024 Immunizations Immunization DateImmunizationNotesCare RskbajdrBharnogl58-52-7704sthdzakfxmzyf oligosaccharide (groups A, C, Y and W-135) diphtheria toxoid conjugate vaccine (MCV4O)Melia Warchol CHANGE OVER Work Phone: [phone] SystemWdetytujxo32-00-9267caszvratdqcng polysaccharide (groups A, C, Y and W-135) diphtheria toxoid conjugate vaccine (MCV4P)Melia Warchol CHANGE OVER Work Phone: [facility] SystemPkgpbrsylf76-06-4592finatxg toxoid, reduced diphtheria toxoid, and acellular pertussis vaccine, adsorbedAmy Warchol CHANGE OVER Work Phone: [facility] SystemIubkiuxucg32-61-2332dqhikhrsar, tetanus toxoids and acellular pertussis vaccine, unspecified formulationAmy Warchol CHANGE OVER Work Phone: [facility] SystemBtcpqtjtcz54-58-9675ngksoonqo A vaccine, pediatric/adolescent dosage, 2 dose scheduleAmy Warchol CHANGE OVER Work Phone: [phone] SystemDahxlwphhv16-76-8995iahoulf, mumps and rubella virus vaccineAmy Warchol CHANGE OVER Work Phone: [facility] SystemNltuezwegi81-33-8313zjzyecytpm vaccine, inactivatedAmy Warchol CHANGE OVER Work Phone: [phone] [place], [place] [address]Kihflhsosf79-02-6759zkebzrblv virus vaccineAmy Warchol CHANGE OVER Work Phone: [phone] [place], [place] [address]Shvduxhlmg74-11-0328puhdgifpov, tetanus toxoids and acellular pertussis vaccine, unspecified formulationAmy Warchol CHANGE OVER Work Phone: [phone] [place], [place] [address]Iqaocuozpn35-82-8159esvwqhzbvzp influenzae type b vaccine, PRP-T conjugateAmy Warchol CHANGE OVER Work Phone: [phone] [place], [place] [address]Zwymeuvuga63-04-8883hjnqjqoxn A vaccine, pediatric/adolescent dosage, 2 dose scheduleAmy Warchol CHANGE OVER Work Phone: [phone] [place], [place] [address]Jxrdcyrnmm97-55-4974agwbkxu, mumps, rubella, and varicella virus vaccineAmy Warchol CHANGE OVER Work Phone: [phone] [place], [place] [address]Fyrmifprya76-36-2420rhdphcizftth conjugate vaccine, 7 valentAmy Warchol CHANGE OVER Work Phone: [phone] [place], [place] [address]Qrnjfqqcqp04-70-1203ypzdlcxapy, tetanus toxoids and acellular pertussis vaccine, unspecified formulationAmy Warchol CHANGE OVER Work Phone: [phone] [place], [place] [address]Apfvqiepuf18-90-2459wppfxmfszgk influenzae type b vaccine, PRP-T conjugateAmy Warchol CHANGE OVER Work Phone: [phone] [place], [place] [address]Bhdjxlyady21-33-3775ifizvsepn B vaccine, pediatric or pediatric/adolescent dosageAmy Warchol CHANGE OVER Work Phone: [phone] [place], [place] [address]Xfyqkguqqd98-10-5638dxpxawbntvvt conjugate vaccine, 7 valentAmy Warchol CHANGE OVER Work Phone: [phone] [place], [place] [address]Xizqrwxtnt23-12-2654bwqmcacguc vaccine, inactivatedAmy Warchol CHANGE OVER Work Phone: [phone] [place], [place] [address]Ijcwwgakub95-93-5565xcccwlqybw, tetanus toxoids and acellular pertussis vaccine, unspecified formulationAmy Warchol CHANGE OVER Work Phone: [phone] [place], [place] [address]Qhzojzbnan73-90-9179cmuznevuidd influenzae type b vaccine, PRP-T conjugateAmy Warchol CHANGE OVER Work Phone: [phone] [place], [place] [address]Tqdgagxvjv94-68-9149rbeqsatmw B vaccine, pediatric or pediatric/adolescent dosageAmy Warchol CHANGE OVER Work Phone: [phone] [place], [place] [address]Vpucmmxaol73-50-9599kwggqhnnacgy conjugate vaccine, 7 valentAmy Warchol CHANGE OVER Work Phone: [facility] SystemZlgfccavcw89-95-0855nnlnybeume vaccine, inactivatedAmy Warchol CHANGE OVER Work Phone: [facility] SystemRvnkdyjdfr62-61-3347ononscjvqf, tetanus toxoids and acellular pertussis vaccine, unspecified formulationAmy Warchol CHANGE OVER Work Phone: [phone] SystemCqzqwzmnvr35-94-0962fmyvnwmkhpv influenzae type b vaccine, PRP-T conjugateAmy Warchol CHANGE OVER Work Phone: [facility] SystemFiqjhestse30-63-5152ixfnmxqse B vaccine, pediatric or pediatric/adolescent dosageAmy Warchol CHANGE OVER Work Phone: [facility] SystemXapxjveitk58-05-4001mbqqhkfuxd vaccine, inactivatedAmy Warchol CHANGE OVER Work Phone: [facility] Payers DatePayer CategoryPayerPolicy [id number] Health [id number] (Managed Care)[employer] Member Subscriber Plan / Payer (Effective 2024-Present) Name: Berenice Lopez Relation to Subscriber: Self Name: Berenice Lopez Payer ID: Not on file Group ID: Not on file Type: Not on file Address: [address] [id number] [id number] [id number] 840.1.452704.3.57[id number] 2.16.840.1.130488.3.57[id number] 2.16.840.1.827540.3.57[id number] 2.16.840.1.315818.3.57[id number] 2.16.840.1.434240.3.57[id number] 2.16.840.1.208665.3.57[id number] 2.16.840.1.434983.3.57[id number] 2.16.840.1.197393.3.57[id number] 2.16840.1.638282.3.57[id number] 2.16.840.1.522970.3.57[id number] 2.16.840.1.815899.3.57[id number] 2.16.840.1.455415.3.57[id number] 2.16.840.1.479287.3.57[id number] 2.16.840.1.365763.3.57[id number] 2.16.840.1.276510.3.57[id number] 2.16.840.1.926022.3.57[id number] 2.16.840.1.437350.3.579.2.1259 [id number] 2.16.840.1.3[id number] 2..840.1.798024.3.579.2.531 [id number] 2.16.840.1.4[id number] 2..840.1.49268[id number] 2.840.1.463114.3.579.2.531 Social History DateTypeDetailFacilityStart: 02-07-2022 End: 53-38-2092Qvshdnb smoking status NHISNever smoked tobacco (finding) [facility]: 36-13-9039Ttk Assigned At BirthFemale [facility]art: 95-77-8891Cqzmldv use and exposure Smokeless tobacco non-userNOMS HealthcareStart: 10-19-2023 End: 66-90-7707Bullsze intakeLifetime non-drinker (finding)[facility] HealthcareStart: 10-19-2023 End: 68-62-1393Faxckae of Social functionNOMS HealthcareStart: 10-19-2023 End: 41-63-6907Chrcmjj use panelNOMS HealthcareStart: 30-04-4036Cqo Assigned At BirthNot on fileNOMS HealthcareStart: 83-27-8180Nwk often do you need to have someone help you when you read instructions, pamphlets, or other written material from your doctor or pharmacy [SILS]NeverNOMS HealthcareDo you belong to any clubs or organizations such as buddhist groups, unions, fraternal or athletic groups, or school groups?NoNOMS HealthcareAre you now , , , , never or living with a partner?Living with partner [facility] HealthcareHow often to you have a drink containing alcohol?NeverNOMS HealthcareHow hard is it for you to pay for the very basics like food, housing, medical care, and heatingHardNOMS HealthcareDo you feel stress - tense, restless, nervous, or anxious, or unable to sleep at night because yourmind is troubled all the time - these days [OSQ]Rather muchNOMS Healthcare(I/We) worried whether (my/our) food would run out before (I/we) got money to buy more.Never trueNOWI HealthcareStart: 10-16-2024 End: 26-06-3717RsuFqwroo (finding)[facility]tart: 10-17-2024 End: 12-69-9497Pyovmyt smoking status NHISSmoker (finding)[facility]tart: 03-00-1980Byozizz smoking status NHISSmokes tobacco daily (finding)[facility] Start: 82-23-2852Trwumyh smoking status NHISEx-smoker (finding)[facility]: Highlighted rowCommunity [facility] Clinical Notes 11-12-2022 to 07-16-2025 Note Date & IpesLvtsIzwjlslj52-49-7482 History of Present illness Narrative* Mary Baugh LPN - 07/16/2025 10:50 AM EDT Reason for Appointment: Patient ID: Berenice Lopez is a 19 y.o. female who presents for Follow-up Patient presents today for Acute Visit. MEDICATIONS Current Outpatient Medications Medication Instructions gabapentin (NEURONTIN) 600 mg, Oral, 3 times daily ondansetron ODT (ZOFRAN-ODT) 4 mg, Oral, Every 6 hours PRN ALLERGIES No Known Allergies PROBLEMS Active Ambulatory Problems Diagnosis Date Noted Encounter for surgical counseling 10/03/2023 Spontaneous ([facility]) 07/11/2025 Resolved Ambulatory Problems Diagnosis Date Noted No [...] nursing note reviewed. Exam conducted with a feed and farm management adviser present. Vitals: Estimated body mass index is 23.77 kg/m as calculated from the following: Height as of 09/03/24: 5' 4 . Weight as of this encounter: 138 lb 8 oz. BP: 120/82 No LMP recorded. Assessment/Plan ICD-10-CM 1. Positive urine test ([facility]) Z32.01 hCG, quantitative, hCG, quantitative, Patient presents today to follow up after a recent miscarriage. I have discussed HCG lab levels andmiscarriage with patient in detail. Patient was given an additional standing QUANT level lab order to have obtained and will continue to have labs drawn until value reads less than 5. Patient has been advised to wait a full cycle until trying to conceive again, patient voiced understanding, and will call when so office can call in progesterone suppositories. Follow Up: As needed Documented by Mary Baugh LPN on behalf of: Curtis Flores DO documented in this encounterLake Regional Health SystemOdebcousns83-49-6198 Radiology Diagnostic study [facility] [place] [address] [place] [address] Ultrasound Report Signed Patient: Berenice Lopez MR#: [id number] : 2005 Acct:[id number] Age/Sex: 19 / F ADM Date: 5 Loc: ER Room: Type: [facility] ER Attending Dr: Ordering Provider: Adelaida Minaya APRN Date of Service: 07/05/25 US/US OB <= 14 weeks fetus: OB/Uterine Contractions ([id number]) US/US OB transvaginal: . Copies to: Adelaida Minaya APRN~ OB ultrasound. Reason for exam:8 weeks . Passing clots this morning. Abdominal cramping. Comparison:None Technique: Transabdominal and transvaginal imaging of the uterus and ovaries were obtained. Findings: No intrauterine is seen. The endometrium appears thickened measuring 17 mm and heterogenous in echotexture possibly relating to retained parts of conception. No measurable fibroid. No free fluid. Right ovary measures 4.7 x 1.9 x 2.8 cm. Left ovary measures 4.4 x 2.9 x 2.6 cm. No adnexal mass orcyst. Normal arterial and venous Doppler waveforms. US/US OB transvaginal Impression: No intrauterine is seen. The endometrium appears thickened measuring 17 mm in heterogenous in echotexture possibly related to retained parts of conception given the history. Correlation with beta-hCG trend is suggested. Impression dictated by: Sea Shepard Jr., D.O. 07/05/2025 12:04 PM Dictation Location: [place] [address] Tech: Tianna Moreira Transcribed By: CECIL 07/05/25 120 Dictated By: Sea Shepard Jr, DO 07/05/25 120 Signed By: 07/05/25 1204 [facility]10-17-2025 Hospital Discharge instructions Additional Instructions Rest. Push fluids. Take kbcl-yls-wvzonur Tylenol as needed for any pain or discomfort. Avoid using tampons. Wear pads. Follow up with Dr. Flores, TRAFFIC SURVEY TECHNICIAN in the next 2-3 days. Return here is worsening symptoms including heavy bleeding, severe abdominal pain, large clots, dizziness, weakness, nausea, vomiting.[facility] Work Phone: 1(149) 812-432407-23-2025 Evaluation note* Diagnosis Onset Date Resolution Status Admit Date Chronic pain acuteJuly 2024 9:23amDisc herniationacuteJuly 2024 9:23amOther spondylosis with radiculopathy, lumbosacral regionacuteJuly 2024 9:23am [facility] Work Phone: 1(606) 406-971206-03-2025 History of Present illness Narrative* Mary Baugh LPN - 02/19/2025 9:40 AM EDT Reason for Appointment: Patient ID: Berenice Lopez [...] nursing note reviewed. Exam conducted with a feed and farm management adviser present. Vitals: Estimated body mass index is [...] of: Curtis Flores DO documented in this encounterLake Regional Health SystemGpbpkoddos88-53-4651 History of Present illness Narrative* Mary Baugh LPN - 01/15/2025 2:40 PM EDT Reason for Appointment: Patient ID: Berenice Lopez [...] nursing note reviewed. Exam conducted with a feed and farm management adviser present. Vitals: Estimated body mass index is [...] of: Curtis Flores DO documented in this encounterLake Regional Health SystemVknydbiryk25-99-4822 History of Present illness Narrative* Diandra Irizarry LPN - 12/20/2024 9:40 AM EDT Reason for Appointment: Patient ID: Berenice Lopez [...] nursing note reviewed. Exam conducted with a feed and farm management adviser present. Vitals: Estimated body mass index is [...] markers drawn and to repeat ultrasound in 6weeks. Discussed with patient possibility of have surgical management via Diagnostic Lap with chromo pertubation. Also, discussed possible HSG in the future as well. Patient verbalized understanding and will schedule ultrasound prior to leaving office today. Patient to return to clinic as needed andis able to reach out for lab results. Documented by Diandra Irizarry LPN on behalf of: Curtis Flores DO documented in this encounterLake Regional Health SystemJjewcbkduj03-15-0869 Telephone encounter Note* Telephone Encounter - Melia Mantilla NP - 11/22/2024 2:58 PM EST Sent [facility] Rmyvxrhtgj92-71-2562 Miscellaneous Notes* Telephone Encounter - Melia Mantilla NP - 11/22/2024 2:58 PM EST Sent documented in this [facility]03-05-2025 History of Present illness Narrative* IVORY Wills - 11/21/2024 1:00 PM EST Reason for Appointment: Patient ID: Berenice [...] nursing note reviewed. Exam conducted with a feed and farm management adviser present. Vitals: Estimated body mass index is [...] Ultrasound results with patient and discussed taking abirth control to help with nausea and cramping. Patient advised we could do diagnostic testing withDr. And will have surgery coordinator discuss with patient. We will repeat ultrasound in 6 weeks. Will have patient schedule appointment with DR Flores to discuss plan. We also discussed starting metformin in the future Follow Up: Patient is to return in one year for annual unless needed otherwise. Documented by Bebe Nowak LPN on behalf of: IVORY Wills documented in this encounterLake Regional Health SystemJxauyebimn57-59-2015 Telephone encounter Note* Telephone Encounter - Melia Mantilla NP - 11/12/2024 8:47 AM EST New order sent [facility] SystemVgemecwjhg88-64-6693 Miscellaneous Notes* Telephone Encounter - Melia Mantilla NP - 11/12/2024 8:47 AM EST New order sent * Telephone Encounter - AME MAY - 11/09/2024 10:38 AM EST Insurance denied MRI due to them wanting PT done first, patient completed PT as of 10/16/24 & [place] office is wanting us to appeal the MRI we ordered- MRI for Lumbar documented in this encounterLake Regional Health SystemUsgldzimnw18-53-1897 Telephone encounter Note* Telephone Encounter - AME MAY - 11/09/2024 10:38 AM EST Insurance denied MRI due to them wanting PT done first, patient completed PT as of 10/16/24 & Drfeltner office is wanting us to appeal the MRI we ordered- MRI for Lumbar [facility] Ocdfcclcui23-94-6944 Evaluation note* Diagnosis Onset Date Resolution Status Admit Date Chronic pain acuteFebruary 2024 8:56amOther low back painacuteFebruary 2024 8:56amOther spondylosis with radiculopathy, lumbosacral regionacuteFebruary 2024 8:56am [facility] Work Phone: 1(422) 591-676502-03-2025 History of Present illness Narrative* IVORY Wills [...] behalf of: IVORY Wills documented in this encounterNOShriners Hospitals for ChildrenYqiksrppqy73-14-5724 Telephone encounter Note* Telephone Encounter - Melia Mantilla NP - 10/15/2024 1:29 PM EST MRI was denied. Patient states she is still having terrible pain in her back that seems to be worsening. Discussed pain management referral [facility] Gppbncastg42-73-3579 Miscellaneous Notes* Telephone Encounter - Melia Mantilla NP - 10/15/2024 1:29 PM EST MRI was denied. Patient states she is still having terrible pain in her back that seems to be worsening. Discussed pain management referral documented in this encounterLake Regional Health SystemUdlqlghxye65-93-6976 Telephone encounter Note* Telephone Encounter - Melia Mantilla NP - 09/24/2024 5:41 PM EST Sent [facility] Xjrhuryfxs25-39-6613 Miscellaneous Notes* Telephone Encounter - Melia Mantilla NP - 09/24/2024 5:41 PM EST Sent documented in this encounterLake Regional Health SystemAoktrziuqe86-42-2130 History of Present illness Narrative* Melia Mantilla [...] scheduled follow-up review MRI. documented in this [facility]12-16-2024 Instructions* Patient Instructions* Melia Mantilla NP [...] use of controlled substances. documented in this [facility]12-10-2024 Telephone encounter Note* Telephone Encounter - Melia Mantilla NP - 08/28/2024 12:57 PM EST sent [facility] Yqlcmsypeg43-70-7567 Miscellaneous Notes* Telephone Encounter - Melia Mantilla NP - 08/28/2024 12:57 PM EST sent documented in this [facility]11-08-2024 History of Present illness Narrative* Melia [...] follow-up: back pain . documented in this encounterLake Regional Health SystemTxazxpludn23-36-2014 Instructions* Patient Instructions* Melia Mantilla NP - [...] use of controlled substances. documented in this encounterLake Regional Health SystemWdbxkdbesw40-74-0598 History of Present illness Narrative* Melia Mantilla [...] for Next scheduled follow-up. documented in this [facility]09-30-2024 Instructions* Patient Instructions* Melia Mantilla NP - [...] use of controlled substances. documented in this [facility]04-24-2023 NotePROCEDURE: XR HIPS DANNIELLE 5V W PELVIS HISTORY: Pain in thoracic spine ; bilateral hip pain, right greater than left COMPARISON: None. FINDINGS: BONES:No fracture, acute abnormality, or significant arthropathy. SOFT TISSUES:No visible soft tissue swelling. EFFUSION:None visible. OTHER: Negative. IMPRESSION: 1. Normal examination. Electronically authenticated by: JOY CARDOZA Date: 2023-01-10 11:58[facility]02-24-2023 NoteOP Note OPERATION DATE: 11/12/2022 PROCEDURE: Diagnostic laparoscopy with left ovarian cystotomy with drainage of chocolate cyst with left ovarian cystectomy, lysis of adhesions and fulguration of endometriosis on the patient's right ovary. PREOPERATIVE DIAGNOSIS: Pelvic pain, suspect endometriosis; left ovarian cyst. POSTOPERATIVE DIAGNOSIS: Pelvic pain, suspect endometriosis; left ovarian cyst. ANESTHESIA: General. SURGEON: Curtis Flores D.O. ALLERGIST/IMMUNOLOGIST PHYSICIAN: KATHY Max URINE OUTPUT: Yellow and clear. [...] the regular diagnostic laparoscopy procedure only.) ?[facility] SpringfieldCoqntdhz99-13-4104 NoteOP Note OPERATION DATE: 11/12/2022 PROCEDURE: Diagnostic laparoscopy with left ovarian cystotomy with drainage of chocolate cyst with left ovarian cystectomy, lysis of adhesions and fulguration of endometriosis on the patient's right ovary. PREOPERATIVE DIAGNOSIS: Pelvic pain, suspect endometriosis; left ovarian cyst. POSTOPERATIVE DIAGNOSIS: Pelvic pain, suspect endometriosis; left ovarian cyst. ANESTHESIA: General. SURGEON: Curtis Flores D.O. ALLERGIST/IMMUNOLOGIST PHYSICIAN: KATHY Max URINE OUTPUT: Yellow and clear. [...] wall. No such procedure is available. Dr. Folres said he would make any addendum necessary at the time of signing off dictation, so I inserted the regular diagnostic laparoscopy procedure only.)[facility] SpringfieldEvaluation noteNo assessment information availableSelect Medical [facility] Work Phone: Evaluation note* Diagnosis Chronic midline low back pain with bilateral sciatica- Primary Person consulting for explanation of examination or test finding Bilateral sacroiliitis (CMS/HCC) documented in this encounter [facility] HealthcareEvaluation note* Diagnosis Bilateral sacroiliitis (CMS/HCC) Chronic midline low back pain with bilateral sciatica documented in this encounter [facility] HealthcareEvaluation note* Diagnosis Chronic midline low back pain without sciatica- Primary Lumbar radiculopathy Thoracic or lumbosacral neuritis or radiculitis, unspecified documented in this encounter [facility] HealthcareEvaluation note* Diagnosis Adult general medical examination- Primary Unspecified general medical examination Muscle cramping Bilateral sacroiliitis (CMS/HCC) Left lumbar radiculopathy Thoracic or lumbosacral neuritis or radiculitis, unspecified 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-sided sciatica documented in this encounter [facility] HealthcareEvaluation note* Diagnosis Bilateral sacroiliitis (CMS/HCC) Chronic midline low back pain with bilateral sciatica documented in this encounter [facility] HealthcareEvaluation note* Diagnosis Chronic midline low back pain without sciatica- Primary Left lumbar radiculopathy Thoracic or lumbosacral neuritis or radiculitis, unspecified 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-sided sciatica Bilateral sacroiliitis (CMS/HCC) documented in this encounter [facility] HealthcareEvaluation note* Diagnosis Abdominal cramping Abdominal pain, unspecified site Cyst of left ovary Other and unspecified ovarian cyst documented in this encounter [facility] HealthcareEvaluation note* Diagnosis 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-sided sciatica- Primary Left lumbar radiculopathy Thoracic or lumbosacral neuritis or radiculitis, unspecified documented in this encounter [facility] HealthcareEvaluation note* Diagnosis Well woman exam with routine gynecological exam Routine gynecological examination Complex ovarian cyst Nausea Nausea alone Encounter for initial prescription of contraceptive pills documented in this encounter [facility] HealthcareEvaluation note* Diagnosis Bilateral sacroiliitis (CMS/HCC) Chronic midline low back pain with bilateral sciatica documented in this encounter [facility] HealthcareEvaluation note* Diagnosis Encounter to discuss test results Other specified counseling Complex ovarian cyst documented in this encounter [facility] HealthcareEvaluation note* Diagnosis Postoperative follow-up Follow-up examination, following unspecified surgery documented in this encounter [facility] HealthcareEvaluation note* Diagnosis Encounter to discuss test results Other specified counseling History of ovarian cyst Personal history of other genital system and obstetric disorders Dermoid cyst documented in this encounter [facility] HealthcareEvaluation note* Diagnosis Onset Date Resolution Status Admit Date Chronic pain acuteJuly 2024 9:23amDisc herniationacuteJuly 2024 9:23amOther spondylosis with radiculopathy, lumbosacral regionacuteJuly 2024 9:23am [facility] Work Phone: Evaluation note* Diagnosis Positive urine test (HHS-HCC) Follow-up visit after miscarriage ([facility]) documented in this encounter [facility] HealthcareHospital Discharge instructions Additional Instructions I am glad that you are feeling better. Your symptoms are likely residual after your vomiting and diarrhea. I will prescribe medicine for nausea and for cramping. If you have any problems or concerns, we are always happy to see you here. I do want you to follow-up with your doctor.[facility] Work Phone: Reason for referral (narrative)No reason for referral information availableWexner Medical Center Work Phone: Chief Complaint and Reason for Visit Chief Complaint Admit Date RECHECK April 10, 2025 9:23 am Vag bleeding/8 wks June 9:29am Reason for Visit Admit Date Chronic pain April 10, 2025 9:23 am Disc herniation April 10, 2025 9:23 am Other [facility] April 10, 2025 9:23am Chief Complaint exposure Abd Pain, Nausea Chief [...] 29, 2024 8:56am Other spondylosis with radiculopathy, [facility] October 29, 2024 8:56am Chief Complaint Admit Date stomach pain October 17, 2024 7 :45pm REFF BY MELIA MANTILLA October 29, 2024 8:56am N83.299 November 20, 2024 2:49 pm M54.42 G89.29 M54.16 December 12, 2024 7: 49am Chief Complaint Admit Date RECHECK April 10, 2025 9:23 am Advance Directives No Advanced Directives Records Found [...] Status: Active Member Role Status Dates Joe Lombardo MD Primary Care Provider Active Team Status: Inactive Member Role Status Dates Joe Lombardo MD Primary Care Provider Active Start: November 04, 2023 End: November 04orey FazioAttending ProviderActiveStart: November 04, 2023 End: November 04, 2023 Team Status: Inactive Member Role Status Dates Joe Lombardo MD Primary Care Provider Active Jc Dover ProviderActive Team Status: Inactive Member Role Status Dates Joe Lombardo MD Primary Care Provider Active Severo Lea MDEmerriver valley medical centercy ProviderActiveTeam MemberRelationshipSpecialtyStart DateEnd Date Joe Lombardo MD [address] [place] [address] PCP - [facility] Medicine10/19/23 Team Status: Active Member Role Status Dates Melia Mantilla NP-C Primary Care Provider Active Team Status: Inactive Member Role Status Dates Melia Mantilla NP-C Primary Care Provide r, Attending Provider Active Start: July 25, 2024 End: July 25, 2024Team MemberRelationshipSpecialtyStart DateEnd Date Jigar Grace MD [address] [place] [address] PCP - [facility]02/23/24 Melia Mantilla NP [address] [place] [address] [facility]02/23/24 Awilda Tejada NP [address] [place] [address] [facility]02/23/24Team MemberRelationshipSpecialtyStart DateEnd Date Jigar Grace MD [address] [place] [address] PCP - [facility]02/23/24 Melia Mantilla NP [address] [place] [address] [facility]24 Awilda Tejada NP [address] [place] [address] [facility]/24Team MemberRelationshipSpecialtyStart DateEnd Date Jigar Grace MD [address] [place], [facility] PCP - [facility]02/23/24 Melia Mantilla NP [address] [place], [facility]/24 Awilda Tejada NP [address] [place] [address] [facility]02/23/24Team MemberRelationshipSpecialtyStart DateEnd Date Jigar Grace MD [address] [place], [facility] PCP - [facility]02/23/24 Melia Mantilla NP [address] [place] [address] [facility]/24 Awilda Tejada NP [address] [place] [address] [facility]02/23/24Team MemberRelationshipSpecialtyStart DateEnd Jigar Grace MD [address] [place] [address] PCP - [facility]02/23/24 Melia Mantilla, CHANGE OVER [address] [place] [address] [facility]02/[facility]/24 Awilda Tejada NP [address] [place] [address] [facility]02/23/24Te MemberRelationshipSpecialtyStart DateEnd Jigar Grace MD [address] [place] [address] PCP - [facility]02/23/24 Melia Mantilla CHANGE OVER [address] [place] [address] [facility]/24 Awilad Tejada NP [address] [place] [address] [facility]02/23/24Team MemberRelationshipSpecialtyStart DateEnd Jigar Grace MD [address] [place] [address] PCP - [facility]02/23/24 Melia Mantilla, CHANGE OVER [address] [place] [address] [facility]/24 Awilda Tejada NP [address] [place] [address] [facility]02/23/24Team MemberRelationshipSpecialtyStart DateEnd Date Jigar Grace MD [address] [place] [address] [facility] - [facility]02/23/24 Melia Mantilla NP [address] [place], [facility]02/[facility]/24 Awilda Tejada NP [address] [place] [address] Nurse [facility]02/23/24 Team Status: Inactive Member Role Status Dates VON Wyatt Primary Care Provide r, Attending Provider Active Start: August 23, 2024 End: August 23, 2024 Team Status: Inactive Member Role Status Dates VON Wyatt Primary Care Provider Active Start: October 17, 2024 End: October 18, 2024Thjuwan Coburn Jr, MDEmergency ProviderActiveStart: October 17, 2024 End: October 18, 2024Team MemberRelationshipSpecialtyStart DateEnd Date Jigar Grace MD [address] [place] [address] PCP - [facility]02/23/24 Melia Mantilla NP [address] [place] [address] [facility]/24 Awilda Tejada NP [address] [place] [address] [facility]02/23/24Te MemberRelationshipSpecialtyStkathleen DateEnd Jigar Grace MD [address] [place] [address] [facility]02/23/24 Melia Mantilla NP [address] [place] [address] [facility]09/19/24 Melia Mantilla NP [address] [place] [address] Nurse [facility]02/23/24 Awilda Tejada NP [address] [place] [address] Nurse [facility]02/23/24Te MemberRelationshipSpecialtyStkathleen DateEnd Date Jigar Grace MD [address] [place] [address] [facility]02/23/24 Melia Mantilla NP [address] [place] [address] [facility]09/19/24 Melia Mantilla NP [address] [place] [address] [facility]02/[facility]/24 Awilda Tejada NP [address] [place] [address] Nurse [facility]02/23/24Te MemberRelationshipSpecialtyLowell DateEnd Jigar Grace MD [address] [place] [address] [facility]02/23/24 Melia Mantilla NP [address] [place] [address] [facility]09/19/24 Melia Mantilla NP [address] [place] [address] Nurse [facility]02/23/24 Awilda Tejada NP [address] [place] [address] Nurse [facility]02/23/24Te MemberRelationshipSpecialtyLowell DateEnd Date Jigar Grace MD [address] [place] [address] [facility]02/23/24 Melia Mantilla NP [address] [place] [address] [facility]09/19/24 Melia Mantilla NP [address] [place] [address] [facility]02/[facility]/24 Awilda Tejada CHANGE OVER [address] [place] [address] [facility]02/23/24 Team Status: Inactive Member Role Status Dates Melia Mantilla NP-C Primary Care Provide r, Referring Provider Active Start: October 29, 2024 End: October 29, 2024ThJc Haney ProviderActiveStart: October 29, 2024 End: October 29, 2024 Team Status: Inactive Member Role Status Dates Melia Mantilla NP-C Primary Care Provider Active Start: November 20, 2024 End: November 20IVORY Centeno-Malika ProviderActiveStart: November 20, 2024 End: November 20, 2024 Team Status: Inactive Member Role Status Dates Melia Mantilla NP-C Primary Care Provide r, Attending Provider Active Start: December 12, 2024 End: December 12, 2024Team MemberRelationshipSpecialtyStart DateEnd Date Jigar Grace MD [address] [place] [address] PCP - [facility]02/23/24 Melia Mantilla NP [address] [place] [address] PCP [facility]09/19/24 Melia Mantilla NP [address] [place] [address] [facility]02/[facility]/24 Awilda Tejada CHANGE OVER [address] [place] [address] [facility]02/23/24Team MemberRelationshipSpecialtyStkathleen DateEnd Jigar Grace MD [address] [place] [address] PCP - [facility]02/23/24 Melia Mantilla NP [address] [place] [address] [facility]09/19/24 Melia Mantilla NP [address] [place] [address] [facility]02/23/24 Awilda Tejada NP [address] [place] [address] [facility]02/23/24Team MemberRelationshipSpecialtyStart DateEnd Date Jigar Grace MD [address] [place] [address] [facility]02/23/24 Melia Mantilla CHANGE OVER [address] [place] [address] [facility]09/19/24 Melia Mantilla NP [address] [place] [address] [facility]02/[facility]/24 Awilda Tejada NP [address] [place] [address] [facility]02/23/24Te MemberRelationshipSpecialtyStkathleen DateEnd Date Jigar Garce MD [address] [place] [address] [facility]02/23/24 Melia Mantilla CHANGE OVER [address] [place] [address] [facility]09/19/24 Melia Matnilla NP [address] [place] [address] Nurse [facility]02/23/24 Awilda Tejada NP [address] [place] [address] Nurse [facility]02/23/24Te MemberRelationshipSpecialtyStkathleen DateEnd Date Jigar Grace MD [address] [place] [address] [facility]02/23/24 Melia Mantilla CHANGE OVER [address] [place] [address] [facility]09/19/24 Melia Mantilla NP [address] [place] [address] [facility]02/[facility]/24 Awilda Tejada NP [address] [place] [address] [facility]02/23/24Team MemberRelationshipSpecialtyStart DateEnd Date Jigar Grace MD [address] [place] [address] PCP - [facility]02/23/24 Melia Mantilla NP [address] [place] [address] [facility]09/19/24 Melia Mantilla, ELICIA [address] [place] [address] [facility]02/[facility]/24 Awilda Tejada NP [address] [place] [phone] [facility]02/23/24 Team Status: Inactive Member Role Status Dates Melia Mantilla NP-C Primary Care Provider Active Start: April 10, 2025 End: April 10, 2025Thomas Jc Tomlin ProviderActiveStart: April 10, 2025 End: April 10, 2025Team MemberRelationshipSpecialtyStart DateEnd Date Jigar Grace MD [address] [place] [address] PCP - [facility]02/23/24 Melia Mantilla, CHANGE OVER [address] [place] [address] PCP [facility]12/18/2510 Melia Mantilla NP [address] [place] [address] [facility]02/[facility]/24 Awilda Tejada, CHANGE OVER [address] [place] [address] [facility]02/23/24 Team Status: Active Member Role/Relationship Status Dates Joe Lombardo MD Primary Care Provider Active Team Status: Inactive Member Role/Relationship Status Dates Melia Mantilla NP-C Primary Care Provider Active Start: April 10, 2025 End: April 10, 2025ThJc Haney ProviderActiveStart: April 10, 2025 End: April 10, 2025 Team Status: Inactive Member Role/Relationship Status Dates Joe Lombardo MD Primary Care Provider Active Start: July 05, 2025 End: July 05Markell Tapia ProviderActiveStart: July 05, 2025 End: July 05, 2025Team MemberRelationshipSpecialtyStart DateEnd Date Jigar Grace MD [address] [place] [address] PCP - [facility]02/23/24 Melia Mantilla NP [address] [facility] [place] [address] PCP - [facility]12/18/2510 Melia Mantilla NP [address] [place] [address] [facility]02/[facility]/24 Awilda Tejada, CHANGE OVER [address] [place] [address] [facility]02/23/24Team MemberRelationshipSpecialtyStart DateEnd Date Jigar Grace MD [address] [place] [address] PCP - [facility]02/23/24 Melia Mantilla NP [address] [place] [address] PCP - [facility]12/18/2510 Melia Mantilla NP [address] [place] [address] [facility]02/23/24 Awilda Tejada NP [address] [place] [address] [facility]02/23/24 Goals (unrecognized section and content) Goals may [...] and content) DATE CREATED AUTHOR 01/11/2023 [facility] DATE CREATED AUTHOR AUTHOR'S ORGANIZ ATION 07/17/2025 [facility] DATE CREATED AUTHOR AUTHOR'S ORGANIZ ATION 07/28/2025 [facility] Reason for Visit (unrecogniz ed section and content) ReasonCommentsOvarian CystReasonCommentsWell Women VisitReasonCommentsResults ReasonCommentsPost-op VisitReasonCommentsFollow-up FOR RECORDS PERTAINING TO PATIENTS WHO ARE [...] BE BASED ON THE PRIMARY CLINICAL RECORDS. [facility], [facility]. provides no warranty or guarantee of the accuracy or completeness of information in this document.
== END 2025-08-08 07:36 | disposition home or self-care (01) ==
LOC: LAB 07:37
PROVIDERS: PCP Family Medicine; Visit Provider Obstetrics & Gynecology
DX: Z32.01 Encounter for pregnancy test, result positive (principal); N92.6 Irregular menstruation, unspecified
CPT/HCPCS: 36415; 84702